=== PATIENT | female | born 1940 | race Caucasian/White ===

== ENCOUNTER → 2017-09-28 12:03 | Outpatient (CLI) | payer MEDICARE, SELFPAY ==
--- NOTE | 2017-09-28 12:10 | RAD_ITS ---
STUDY: X-RAY CHEST REASON FOR EXAM: Female, 76 years old. Cough TECHNIQUE: Frontal and lateral views of the chest. COMPARISON: None. FINDINGS: The lungs are hyperexpanded. There are coarsened interstitial markings suggestive of mild chronic fibrosis. Probable scarring in the lung bases. No gross focal infiltrates. No gross effusions. Normal size heart. Normal mediastinum and edwin. Normal visualized pulmonary arteries. Normal visualized aortic arch and descending thoracic aorta. There are diffuse degenerative changes of the visualized thoracic spine. Normal visualized ribs, clavicles, and shoulders. There is no demonstrated abnormality of the visualized soft tissue structures of the upper abdomen. RAD/Chest PA and Lateral IMPRESSION: There are findings consistent with COPD. There is no evidence of acute chest disease. Electronically Signed: Gordon López MD at 16:50 EST , Service support ,
== END ==
PROVIDERS: Family Provider Family Medicine Geriatric Medicine; PCP Family Medicine Geriatric Medicine; Visit Provider Family Medicine Geriatric Medicine
DX: J40 Bronchitis, not specified as acute or chronic (principal); R05 Cough
CPT/HCPCS: 71046; 87633

== ENCOUNTER → 2017-12-03 11:27 | Outpatient (CLI) | payer MEDICARE, SELFPAY | PROVIDERS: Family Provider Family Medicine Geriatric Medicine; PCP Family Medicine Geriatric Medicine; Visit Provider Family Medicine Geriatric Medicine | DX: R68.83 Chills (without fever) (principal) | CPT/HCPCS: 87633 ==

== ENCOUNTER → 2018-12-18 11:02 | Outpatient (CLI) | payer MEDICARE, SELFPAY ==
--- NOTE | 2018-12-18 11:25 | RAD_ITS ---
STUDY: X-RAY - PELVIS AND LEFT HIP REASON FOR EXAM: Female, 78 years old. Pain TECHNIQUE: 3 views of the pelvis and hip. COMPARISON: None. FINDINGS: L4-L5, L5-S1 degenerative disc disease and facet arthropathy/hypertrophy. Sacral arcades appear symmetric and intact. Mild symmetric degeneration of the SI joints. Iliac crests, pubic rami intact. Bilaterally, mild hip joint margin osteophytic lipping, mild DJD. Osteopenia. No visible pelvic or hip fracture. RAD/HIP, UNI W/ Pelvis 2-3 Views IMPRESSION: Mild bilateral hip DJD. No visible injury. Electronically Signed: Jono España MD at 11:52 EDT Tel , Service support ,
[2018-12-18 12:39] LABS: Anion Gap 1 (5-15); BUN 28 mg/dL (7-18); BUN/Creat Ratio 32.3 RATIO (10-20); Calcium,Total 8.8 mg/dL (8.5-10.1); Chloride 106 mmol/L (98-107); Creatinine, Serum 0.87 mg/dL (0.55-1.02); EST Glomerular Filtration Rate 67 mL/min (>60); Est Glom Filt Rate - Afr Amer 82 mL/min (>60); Glucose 95 mg/dL (74-106); Potassium 4.4 mmol/L (3.5-5.1); Sodium Level 139 mmol/L (136-145)
== END ==
LOC: POLAB3 11:02 → RAD 11:15
PROVIDERS: Family Provider Family Medicine Geriatric Medicine; PCP Family Medicine Geriatric Medicine; Referring Provider Family Medicine Geriatric Medicine; Visit Provider Family Medicine Geriatric Medicine
DX: M25.552 Pain in left hip (principal); E87.6 Hypokalemia
CPT/HCPCS: 36415; 73502; 80048

== ENCOUNTER → 2019-01-02 | Outpatient (CLI) | payer MEDICARE, SELFPAY ==
[2019-01-02 12:40] LABS: Absolute Lymphocyte Count 1.96 X10^3/ul (0.83-4.51); Basophil# 0.04 X10^3/uL; Basophil% 0.6 % (0-1); Eosinophils% 2.9 % (0-5); Hematocrit 40.3 % (37-47); Lymphocyte # 1.96 X10^3/ul (4.0); Lymphocyte % 28.5 % (19-41); Mean Corp Hgb Conc 32.3 g/gl (32-36); Mean Corpuscular Hgb 30.1 pg (27.0-32.0); Mean Corpuscular Volume 93.3 fL (81-99); Mean Platelet Vol. 10.1 fl (6.2-12.0); Monocyte# 0.64 X10^3/uL; Monocyte% 9.3 % (0-10); Neutrophil # 3.98 X10^3/uL (2.7-7.7); Platelet Count 236 K/mm3 (150-450); RBC Distribution Width CV 14.8 % (11.6-14.6); RBC Distribution Width SD 48.4 fl (35.1-43.9); Red Blood Count 4.32 M/mm3 (4.2-5.4); White Blood Count 6.9 K/mm3 (4.4-11.0)
[2019-01-02 12:44] LABS: POSITIVE COUNT NO; POSITIVE DIFFERENTIAL NO; POSITIVE MORPHOLOGY NO
[2019-01-02 13:06] LABS: Vitamin D,25 Hydroxy 20.6 ng/mL (29.95-100.01)
[2019-01-02 13:42] LABS: ALB/GLOB Ratio 0.9 RATIO (0.9-2.4); AST(SGOT) 17 U/L (15-37); Alanine Aminotransfer ALT/SGPT 35 U/L (13-56); Albumin, Serum 3.3 g/dL (3.2-5.0); Alkaline Phosphatase 46 U/L (45-117); Anion Gap 5 (5-15); BUN 28 mg/dL (7-18); Calcium,Total 8.6 mg/dL (8.5-10.1); Chloride 108 mmol/L (98-107); Cholesterol 205 mg/dL (200); EST Glomerular Filtration Rate 74 mL/min (>60); Est Glom Filt Rate - Afr Amer 90 mL/min (>60); Globulin 3.6 g/dL (2.2-4.2); Glucose 90 mg/dL (74-106); High Density Lipoprotein 60 mg/dL; Potassium 4.4 mmol/L (3.5-5.1); Protein, Total 6.9 g/dL (6.4-8.2); Sodium Level 141 mmol/L (136-145); Thyroid Stim Hormone (TSH) 6.28 uIU/mL (0.358-3.74); Triglycerides 93 mg/dL; Very Low Density Lipoprotein 19 mg/dL (5-40)
== END | disposition home or self-care (01) ==
LOC: POLAB3 08:53
PROVIDERS: Family Provider Family Medicine Geriatric Medicine; PCP Family Medicine Geriatric Medicine; Visit Provider Family Medicine Geriatric Medicine
DX: E55.9 Vitamin D deficiency, unspecified (principal); E78.5 Hyperlipidemia, unspecified; I10 Essential (primary) hypertension
CPT/HCPCS: 36415; 80053; 80061; 82306; 84443; 85025

== ENCOUNTER 2019-01-13 13:29 | Outpatient (RCR) | payer MEDICARE, SELFPAY ==
--- NOTE | 2019-04-15 14:36 | HP.PTEVAL_ITS ---
Patient's Visit Information ALEJANDRA SHERMAN is a 78 year old F referred to Physical Therapy by Rancho Knott MD with a diagnosis of MILD OA, LEFT HIP, PAIN SEVERE.. Date of Evaluation: 01/13/19 Physical Therapist: Jen Mckeon PT, Cert MDT - Visit Plan Frequency: 2x /Week Duration: 4-6 Weeks Plan: AQUATIC THERAPY FOR POSTURE CORRECTION/STRENGTHENING, INSTRUCTION IN APPROPRIATE BODY MECHANICS AND ACTIVITY MODIFICATIONS. DLS STARTING WITH A NEUTRAL SPINE PROGRESSING ROM TOLERATED. SANGEETA LE ROM, STRETCHING AND STRENGTHENING. HEP INSTRUCTION. *MINIMAL LIFTING > 10 LBS, BENDING, PUSHING, PULLING, TWISTING AND OVER HEAD EXTENSION. - Subjective Findings: Work/Leisure: RETIRED. Present symptoms: LEFT LATERAL HIP PAIN, GROIN PAIN AND RADIATING PAIN DOWN TO KNEE. NO NUMBNESS OR TINGLING. H/O LBP BUT NOT CURRENTLY. Present since: ABOUT A MONTH AGO. Pain Scale: WORST 8/10, LEAST 3/10. Currently: 5/10. Commenced as a result of: NO APPARENT REASON OTHER THAN LIFTING A HEAVY SEWING MACHINE. Symptoms at onset: SAME. Worse: WALKING, TRANSFER FROM STAND TO SIT, PIVOTING ON LLE, TURNING QUICK, BENDING, LIFTING. Better: SITTING, NAPROXEN, TYLONOL ARTHRITIS. Disturbed sleep: YES. Previous history/Previous treatment: NO PRIOR LEFT HIP PROBLEMS. HX OF CHRONIC LBP FOR YEARS - TREATED WITH CHIROPRACTOR BUT HAS NOT BEEN FOR A LONG TIME. Coughing/sneezing/straining: NEGATIVE. Gait: PATIENT REPORTS SHE IS LIMPING NOW SINCE THIS ONSET AND WHEN SHE USES A CANE IT HELPS. DOING STEPS ONE AT A TIME NOW. Difficulty initiating urinatin: NO. Accidents: NO. Unexplained weight loss: NO. Imaging: PELVIC AND HIP X-RAYS - MILD ARTHRITIS. LUMBAR X-RAYS TWO YEARS AGO WITH POSITIVE FINDINGS - SEE [facility] EMR. PMH: ASTHMA, COPD, HYPERLIPIDEMIA, INSOMNIA, VITAMIN D DEFICIENCY, HYPOTHYOIDISM. Recent major surgery: NO. PLOF (Prior Level of Function): UNLIMITED CONSISTANT AGE - Objective Sitting/Standing Posture: POOR. SLOUCHED. INCREASED KYPHOSIS. Lordosis: RE DUCED. Lateral shift: NO. Relevant shift: N/A. Active Correction of posture: BETTER. Other Observations: INDEP SIT TO STAND WITHOUT UE ASSIST BUT DIFFICULT AND INCRASES LEFT HIP PAIN A LITTLE BIT. INDEP GAIT WITHOUT ASSISTIVE DEVICE INTO PT LIMPING ON LLE. Motor deficit: RIGHT LE 5/5 WITH MMT'ING EXCEPT HIP 4/5. LLE: HIP 4-/5, KNEE 4/5, ANKLE 5/5. Sensory deficit: NO. ROM deficit: SANGEETA HIP FLEXOR, HS AND GASTROC SOLEUS TIGHTNESS WITH HS TIGHTNESS AND CALF TIGHTNESS LEFT > RIGHT. Reflexes: SANGEETA QUADS 1/3 AND ACHILLES 2/2. Dural Signs: POSITIVE LEFT LE. Lumbar mvmt loss: flex - MOD. ext - JACK. R SG - JACK. L SG - JACK - INCREASES LEFT HIP PAIN. LOW BACK PROVOKED WITH PROLONGED STANDING FOR POSTURE ASSESSMENT. Core strength: POOR. Palpation: TENDERNESS WITH PALPATION OF THE LEFT BUTTOCK REGION BUT REALLY NOT TENDER IN THE LEFT GREATER TROCH REGION, OR LUMBAR SPINE. - Goals Goal 1:: DECREASE C/O LEFT HIP PAIN Goal Time Frame: 4-6 Weeks Goal 2:: IMPROVE STANDING, WALKING, BENDING, LIFTING, ADL AND SLEEP FUNCTION Goal Time Frame: 4-6 Weeks Goal 3:: INSTRCT IN PROPHYLAXIS Goal Time Frame: 4-6 Weeks - Rehabilitation Potential Rehabilitation Potential: Fair - Anticipated Interventions Patient/Client Instruction: Educate patient on: Condition, Plan of Care, Risk Factors, Benefits of Fitness Program For the Purpose of:: To improve self management Therapeutic Exercise to Include: Strength training, Body mechanics, Postural training, Flexibilty training, Gait and locomotor training, In an aquatic setting, Active ROM, Dynamic Lumbar Stabilization For the Purpose of:: To decrease pain, To increase ROM, To improve muscle performance and motor function, To increase tolerance to activity/condition/position, To improve ability of physical actions for home/community/work/leisure, To improve gait and locomotor functions Thank you for the opportunity to evaluate your patient. For Medicare and Medicare HMO plans, please review the plan of care and approve it. It will need to be FAXED BACK to us at [phone] for Medicare purposes. For Medicare only, by signing this I certify the plan of care. Please let me know if there are questions or concerns regarding this plan of care. Physician Signature: Date:
--- NOTE | 2019-04-15 14:38 | HP.PTDCNRP_ITS ---
HP - Discharge Summary (1) - Patient Information ALEJANDRA SHERMAN was seen in my office for initial evaluation on 01/13/19. The following Plan of Care was established for this patient: Initial Frequency: 2x /Week Initial Duration: 4-6 Weeks - Anticipated Interventions Patient/Client Instruction: Educate patient on: Condition, Plan of Care, Risk Factors, Benefits of Fitness Program For the Purpose of:: To improve self management Therapeutic Exercise to Include: Strength training, Body mechanics, Postural training, Flexibilty training, Gait and locomotor training, In an aquatic setting, Active ROM, Dynamic Lumbar Stabilization For the Purpose of:: To decrease pain, To increase ROM, To improve muscle performance and motor function, To increase tolerance to a ctivity/condition/position, To improve ability of physical actions for home/community/work/leisure, To improve gait and locomotor functions This patient was last seen in our office 01/17/19. Pertinent comments regarding their Physical therapy will appear below: This patient has not returned to Physical Therapy and is appropriate to return to MD for further follow-up as needed. At this point I will be discontinuing this patient from physical therapy. I would be happy to see this patient again in the future if found appropriate by the physician. Thank you! Jen Mckeon, PT, Cert MDT
== END 2019-01-13 19:00 | disposition home or self-care (01) ==
LOC: PT 13:29
PROVIDERS: Family Provider Family Medicine Geriatric Medicine; PCP Family Medicine Geriatric Medicine; Referring Provider Family Medicine Geriatric Medicine; Visit Provider Family Medicine Geriatric Medicine
DX: M16.9 Osteoarthritis of hip, unspecified (principal)
CPT/HCPCS: 97162; 97530

== ENCOUNTER → 2019-07-04 08:53 | Outpatient (CLI) | payer MEDICARE, SELFPAY ==
[2019-07-04 12:25] LABS: Absolute Lymphocyte Count 1.91 X10^3/uL (0.83-4.51); Absolute Neutrophil Count 3.8 X10^3/uL (2.0-7.7); Basophil# 0.05 X10^3/uL; Basophil% 0.8 % (0-1); Eosinophils% 3.1 % (0-5); Hematocrit 42.7 % (37-47); Hemoglobin 13.7 g/dL (12.0-15.0); Lymphocyte # 1.91 X10^3/ul (4.0); Lymphocyte % 29.7 % (19-41); Mean Corp Hgb Conc 32.1 g/dL (32-36); Mean Corpuscular Volume 93.6 fL (81-99); Mean Platelet Vol. 11.3 fl (6.2-12.0); Monocyte# 0.49 X10^3/uL; Monocyte% 7.6 % (0-10); NRBC Flagged by Analyzer 0 % (0-5); Neutrophil # 3.76 X10^3/uL (2.7-7.7); Neutrophil % 58.3 % (47-70); Platelet Count 229 K/mm3 (150-450); RBC Distribution Width CV 13.3 % (11.6-14.6); RBC Distribution Width SD 45.7 fl (35.1-43.9); Red Blood Count 4.56 M/mm3 (4.2-5.4); White Blood Count 6.4 K/mm3 (4.4-11.0)
[2019-07-04 12:50] LABS: Vitamin D,25 Hydroxy 20.4 ng/mL (29.95-100.01)
[2019-07-04 13:00] LABS: ALB/GLOB Ratio 0.9 RATIO (0.9-2.4); AST(SGOT) 14 U/L (15-37); Alanine Aminotransfer ALT/SGPT 22 U/L (13-56); Albumin, Serum 3.7 g/dL (3.2-5.0); Alkaline Phosphatase 59 U/L (45-117); Anion Gap 8 (5-15); BUN 29 mg/dL (7-18); Calcium,Total 8.8 mg/dL (8.5-10.1); Chloride 105 mmol/L (98-107); Cholesterol 219 mg/dL (200); Creatinine, Serum 0.91 mg/dL (0.55-1.02); EST Glomerular Filtration Rate 64 mL/min (>60); Est Glom Filt Rate - Afr Amer 78 mL/min (>60); Glucose 86 mg/dL (74-106); High Density Lipoprotein 46 mg/dL; Potassium 4.3 mmol/L (3.5-5.1); Protein, Total 7.7 g/dL (6.4-8.2); Sodium Level 140 mmol/L (136-145); Triglycerides 186 mg/dL; Very Low Density Lipoprotein 37 mg/dL (5-40)
== END ==
PROVIDERS: Family Provider Family Medicine Geriatric Medicine; PCP Family Medicine Geriatric Medicine; Visit Provider Family Medicine Geriatric Medicine
DX: E55.9 Vitamin D deficiency, unspecified (principal); E78.5 Hyperlipidemia, unspecified; I10 Essential (primary) hypertension
CPT/HCPCS: 36415; 80053; 80061; 82306; 84443; 85025

== ENCOUNTER → 2019-10-07 12:25 | Outpatient (CLI) | payer MEDICARE, SELFPAY | PROVIDERS: PCP Family Medicine Geriatric Medicine; Referring Provider Family Medicine Geriatric Medicine; Visit Provider Family Medicine Geriatric Medicine | DX: R68.83 Chills (without fever) (principal) | CPT/HCPCS: 87633 ==

== ENCOUNTER → 2020-01-29 14:16 | Outpatient (CLI) | payer MEDICARE, SELFPAY ==
--- NOTE | 2020-01-29 14:22 | RAD_ITS ---
STUDY: X-RAY - RIGHT SHOULDER REASON FOR EXAM: Female, 79 years old. PAIN WITH MOVEMENT TECHNIQUE: 4 view(s) of the shoulder. COMPARISON: None. FINDINGS: Normal glenohumeral articulation. There is hypertrophic osteoarthrosis of the acromioclavicular joint with inferior osseous spur formation. Normal acromion. Normal humeral head and visualized proximal humerus. The soft tissue structures are unremarkable. There is no demonstrated fracture. Normal visualized pulmonary apex. RAD/Shoulder min 2 Views IMPRESSION: Prominent acromioclavicular osteoarthritis. No acute abnormalities. Electronically Signed: Gordon López MD at 22:51 EDT , Service support ,
== END ==
PROVIDERS: PCP Family Medicine Geriatric Medicine; Referring Provider Family Medicine Geriatric Medicine; Visit Provider Family Medicine Geriatric Medicine
DX: M25.519 Pain in unspecified shoulder (principal)
CPT/HCPCS: 73030

== ENCOUNTER → 2020-03-12 09:39 | Outpatient (CLI) | payer MEDICARE, SELFPAY ==
--- NOTE | 2020-03-12 09:44 | RAD_ITS ---
STUDY: X-RAY - LUMBAR SPINE REASON FOR EXAM: Female, 79 years old. LOW BACK PAIN RADIATES INTO LEFT HIP X5 MONTHS S/P LIFTING A SEWING MACHINE TECHNIQUE: 3 view(s) of the lumbar spine were obtained. COMPARISON: 02/23/2017 FINDINGS: Normal lumbar lordosis. There is no substantial scoliosis. There is a normal alignment of the vertebrae. There is multilevel endplate spondylosis of the lumbar vertebrae. There is multi-level degenerative disc disease with multi-level disc space narrowing. There is no demonstrated fracture. Degenerative changes have progressed since prior study. There is atherosclerotic calcification of the abdominal aorta without a demonstrated aneurysm. RAD/Lumbar Spine 2 or 3 Views IMPRESSION: Degenerative changes of the spine, as detailed above. Findings have progressed since prior exam. Electronically Signed: Gordon López MD at 18:48 EDT , Service support ,
== END ==
PROVIDERS: PCP Family Medicine Geriatric Medicine; Referring Provider Family Medicine Geriatric Medicine; Visit Provider Family Medicine Geriatric Medicine
DX: M54.5 Low back pain (principal)
CPT/HCPCS: 72100

== ENCOUNTER → 2020-07-19 14:06 | Outpatient (CLI) | payer MEDICARE, SELFPAY ==
[2020-07-19 16:33] LABS: Vitamin D,25 Hydroxy 19.4 ng/mL
[2020-07-19 16:39] LABS: Absolute Neutrophil Count 7.2 X10^3/uL (2.0-7.7); Basophil# 0.04 X10^3/uL; Basophil% 0.4 % (0-1); Eosinophil# 0.12 X10^3/uL; Eosinophils% 1.2 % (0-5); Hematocrit 42.6 % (37-47); Hemoglobin 13.4 g/dL (12.0-15.0); Lymphocyte % 20.5 % (19-41); Mean Corp Hgb Conc 31.5 g/dL (32-36); Mean Corpuscular Hgb 30.3 pg (27.0-32.0); Mean Corpuscular Volume 96.4 fL (81-99); Mean Platelet Vol. 10.5 fl (6.2-12.0); Monocyte# 0.76 X10^3/uL; Monocyte% 7.4 % (0-10); NRBC Flagged by Analyzer 0 % (0-5); Neutrophil # 7.17 X10^3/uL (2.7-7.7); Neutrophil % 69.9 % (47-70); Platelet Count 277 K/mm3 (150-450); RBC Distribution Width CV 13.1 % (11.6-14.6); RBC Distribution Width SD 46.4 fl (35.1-43.9); Red Blood Count 4.42 M/mm3 (4.2-5.4); White Blood Count 10.3 K/mm3 (4.4-11.0)
[2020-07-19 16:45] LABS: AST(SGOT) 18 U/L (15-37); Alanine Aminotransfer ALT/SGPT 24 U/L (13-56); Albumin, Serum 3.8 g/dL (3.2-5.0); Alkaline Phosphatase 69 U/L (45-117); Anion Gap 5 (5-15); BUN 22 mg/dL (7-18); BUN/Creat Ratio 28.5 RATIO (10-20); Calcium,Total 9.4 mg/dL (8.5-10.1); Chloride 103 mmol/L (98-107); Cholesterol 224 mg/dL (200); Creatinine, Serum 0.77 mg/dL (0.55-1.02); EST Glomerular Filtration Rate 77 mL/min (>60); Est Glom Filt Rate - Afr Amer 93 mL/min (>60); Glucose 74 mg/dL (74-106); High Density Lipoprotein 51 mg/dL; Potassium 3.8 mmol/L (3.5-5.1); Protein, Total 7.8 g/dL (6.4-8.2); Sodium Level 139 mmol/L (136-145); Thyroid Stim Hormone (TSH) 4.17 uIU/mL (0.358-3.74); Triglycerides 167 mg/dL; Very Low Density Lipoprotein 33 mg/dL (5-40)
== END ==
PROVIDERS: PCP Family Medicine Geriatric Medicine; Visit Provider Family Medicine Geriatric Medicine
DX: E55.9 Vitamin D deficiency, unspecified (principal); E78.5 Hyperlipidemia, unspecified; R53.83 Other fatigue
CPT/HCPCS: 36415; 80053; 80061; 82306; 84443; 85025

== ENCOUNTER 2020-07-20 15:22 | Inpatient (IN) | payer MEDICARE, SELFPAY ==
[2020-07-20 15:24] VITALS: BP 164/91; PULSE 103; RESP 16; TEMP 36.7; O2SAT 97; BMI 39.4
--- NOTE | 2020-07-20 16:40 | ED.VIS.GEN ---
History of Present Illness Chief Complaint: Cellulitis Informant: Patient Narrative: 79-year-old female presenting with cellulitis of the left elbow. She states she is been on antibiotics for the last 2 days. She states this was doxycycline and Keflex. She is had worsening of the cellulitis over her left elbow and now extending into her forearm. She does not have any systemic signs or symptoms. She is not had a fever. She states her biggest symptom is arm pain. Past Medical History - Allergies and Home Meds Allergies/Adverse Reactions: Allergies Penicillins Adverse Reaction (Severe, Verified 07/20/20 15:24) Swelling Past Medical History: - - COPD Surgical History: noncontributory Lives: Spouse/ Significant Other Smoking Status: Unknown if ever smoked Alcohol: None Drugs: None - Family History Maternal Family History: Reports: Hypertension, Stroke Paternal Family History: Reports: Hypertension, Stroke Review of Systems General: Denies: Chills, Fever, Malaise Eyes: Denies: Visual changes - bilaterally, Diplopia ENT: Denies: Rhinorrhea, Sore throat Cardiovascular: Denies: Chest pain, Palpitations Respiratory: Denies: Dyspnea, Cough, Dyspnea on exertion Gastrointestinal: Denies: Abdominal pain, Nausea, Vomiting, Diarrhea, Melena, Hematochezia Genitourinary: Denies: Dysuria, Hematuria, Frequency Musculoskeletal: Denies: Arthralgias, Neck pain Skin: Reports: Rash - Cellulitis to left elbow Neurological: Denies: Headache, Weakness Psych: Denies: Depression, Anxiety Physical Exam Vital Signs/Narrative: Vital Signs Temp Pulse Resp BP Pulse Ox 07/20/20 15:24 98.1 F 103 H 16 164/91 H 97 General: Well nourished, No Acute Distress Head: Normocephalic, Atraumatic Eyes: Perrl, EOMI ENT: Moist mucous membranes, No rhinorrhea Cardiovascular: Regular rate, Regular rhythm Respiratory: No distress, CTA bilaterally Abdomen: Soft, Nontender, Nondistended Extremities: Tenderness - Left elbow, Edema - Left elbow and forearm Skin: Rash - Cellulitis noted over left posterior elbow extending into the lateral forearm.. Negative for: Cyanosis, Diaphoresis Diagnostic/Tx/Re-eval - Medical Decision Making 79-year-old female presenting with failure of outpatient antibiotics for cellulitis on her left elbow. She did have a small pustule lateral to the olecranon. This was cleaned with iodine and then a small edouard incision was made to obtain blood wound cultures. Patient's lab work was unremarkable. Given that she has failed outpatient antibiotics she was started on IV antibiotics here in the ED and admitted to the hospital. Impression: 1. Left elbow and forearm cellulitis ED Disposition - Plan for ED Patient:
[2020-07-20] MEDS: Morphine 4 MG/ML Syringe IV (16:50)
[2020-07-20] MEDS: Ondansetron 4 MG/2 ML Vial IV (16:50)
[2020-07-20 17:08] LABS: Absolute Lymphocyte Count 1.71 X10^3/uL (0.83-4.51); Absolute Neutrophil Count 8.3 X10^3/uL (2.0-7.7); Basophil# 0.06 X10^3/uL; Basophil% 0.6 % (0-1); Eosinophil# 0.07 X10^3/uL; Eosinophils% 0.6 % (0-5); Hematocrit 42.4 % (37-47); Hemoglobin 13.5 g/dL (12.0-15.0); Lymphocyte # 1.71 X10^3/ul (4.0); Lymphocyte % 15.7 % (19-41); Mean Corp Hgb Conc 31.8 g/dL (32-36); Mean Corpuscular Hgb 30.3 pg (27.0-32.0); Mean Corpuscular Volume 95.3 fL (81-99); Mean Platelet Vol. 10.7 fl (6.2-12.0); Monocyte# 0.72 X10^3/uL; Monocyte% 6.6 % (0-10); NRBC Flagged by Analyzer 0 % (0-5); Neutrophil # 8.26 X10^3/uL (2.7-7.7); Neutrophil % 76.1 % (47-70); Platelet Count 235 K/mm3 (150-450); RBC Distribution Width CV 13.2 % (11.6-14.6); RBC Distribution Width SD 46.4 fl (35.1-43.9); Red Blood Count 4.45 M/mm3 (4.2-5.4); White Blood Count 10.9 K/mm3 (4.4-11.0)
[2020-07-20 17:36] LABS: Anion Gap 7 (5-15); BUN 16 mg/dL (7-18); BUN/Creat Ratio 21.2 RATIO (10-20); Calcium,Total 9.5 mg/dL (8.5-10.1); Chloride 103 mmol/L (98-107); Creatinine, Serum 0.75 mg/dL (0.55-1.02); EST Glomerular Filtration Rate 79 mL/min (>60); Est Glom Filt Rate - Afr Amer 96 mL/min (>60); Estimated Creatinine Clearance 37.26 ml/min; Glucose 93 mg/dL (74-106); Potassium 4.5 mmol/L (3.5-5.1); Sodium Level 137 mmol/L (136-145)
--- NOTE | 2020-07-20 18:07 | NURSING ---
DR SANCHEZ FOR DR OWUSU
--- NOTE | 2020-07-20 18:20 | PCM.HP.STD ---
<Luma Mchugh SEARCH DIRECTOR - Last Filed: 07/20/20 18:20> Problem List (1) Back pain Status: Chronic Qualifiers: Back pain location: low back pain Chronicity: acute Back pain laterality: left Sciatica presence: without sciatica Qualified Code(s): M54.5 - Low back pain (2) Segmental and somatic dysfunction of lumbar region Status: Chronic (3) Segmental and somatic dysfunction of pelvic region Status: Chronic (4) DDD (degenerative disc disease), lumbar Status: Chronic History of Present Illness Date of Admission: 07/20/20 Chief Complaint: Left elbow swelling, pain and redness. The patient is a 79 year old F who presents emergency room due to left elbow redness, swelling and pain. Patient states this began about 1 week ago. She states left elbow is extremely painful. She denies injury to left elbow. She was started on Keflex and doxycycline 2 days ago without improvement in symptoms. She denies fever, chills. She states she has noted some pus on the end of her elbow. Reports nausea, denies emesis. She has a past medical history of hypothyroidism, seasonal allergies, JANA on CPAP, COPD. Past Medical History Past Medical History (Chronic Problems): Chronic Problems (Last Reviewed 07/19/20 @ 08:20 by Hailey Stevenson) Back pain (Chronic) Segmental and somatic dysfunction of lumbar region (Chronic) Segmental and somatic dysfunction of pelvic region (Chronic) DDD (degenerative disc disease), lumbar (Chronic) Medical History: Medical History (Last Reviewed 07/19/20 @ 08:20 by Hailey Stevenson) History of Right Foot Fracture History of arthritis Z87.39 History of asthma Z87.09 History of COPD Z87.09 Allergies Penicillins Adverse Reaction (Severe, Verified 07/20/20 15:24) Swelling Home Medications: Ambulatory Orders Medication Instructions Recorded levocetirizine 5 mg tablet 5 mg PO DAILY 04/06/20 naproxen 500 mg tablet 500 mg PO BID PRN 04/06/20 Acetaminophen [Tylenol Arthritis] 1,300 mg PO DAILY PRN 07/20/20 Aspirin E.C. [Ecotrin] 650 mg PO DAILY PRN PRN 07/20/20 Doxycycline Hyclate 100 mg PO BID 07/20/20 Levothyroxine Sodium 25 mcg PO DAILY 07/20/20 Surgical History: Surgical History (Last Reviewed 07/19/20 @ 08:20 by Hailey Stevenson) History of cholecystectomy Z90.49 Surgical History: - - Right ankle surgery x2, cholecystectomy. 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 Lives: Spouse/ Significant Other Smoking Status: Former smoker Alcohol: None Drugs: None - *Family History Maternal History Items: Hypertension, Stroke Paternal History Items: Hypertension, Stroke Review of Systems Constitutional: Denies: Chills, Fever, Weight Change HEENT: Denies: Head Aches, Sinus Congestion, Sinus Drainage Cardiovascular: Denies: Chest Pain, Palpitations Respiratory: Denies: Cough, Shortness of breath at rest, Sputum production Gastrointestinal: Denies: Abdominal Pain, Nausea, Vomiting Genitourinary: Denies: Dysuria Musculoskeletal: Denies: Joint Pain, Joint Tenderness Skin: Reports: - - Left upper extremity redness, warmth and pain. Denies: Rash, Wounds Neurological: Denies: Numbness, Tingling, Focal weakness Psychiatric: Denies: Anxiety, Depression, Homicidal Ideations, Suicidal Ideations Hematologic/ Lymphatic: Denies: Easy Bruising, Easy Bleeding VTE Information - Inpt Only VTE Present on Admission: No VTE Mechan Device Prophylaxis: None VTE Pharm Prophylaxis ordered?: Yes - Physical Exam Vitals/I&O's: Vital Signs Temp Pulse Resp BP Pulse Ox 98.1 F 103 H 16 164/91 H 97 07/20/20 15:24 07/20/20 15:24 07/20/20 15:24 07/20/20 15:24 07/20/20 15:24 Oxygen Delivery Method Room Air Weight: 216 lb Body Mass Index (BMI) 39.4 General: Alert, Oriented x3, Cooperative HEENT: Atraumatic, PERRLA, EOMI, Normocephalic Neck: Supple, No JVD, Negative Carotid Bruits Lungs: Clear to auscultation, Normal air movement Cardiovascular: Regular rate, No murmurs Abdomen: Bowel Sounds Present, Soft, Non Tender Extremities: No clubbing, No cyanosis, Capillary Refill Less than 3 Seconds, Edema - Left upper extremity Skin: - - Left upper extremity diffuse erythema, warmth, edema. Dressing over left elbow area intact. Musculoskeletal: No Tenderness to Palpation of Joints or Extremities Neurological: Cranial nerves II-XII grossly intact, Neuro grossly intact Psych/Mental Status: Normal Affect, Appropriate Laboratory Results 07/20/20 16:35: WBC 10.9, RBC 4.45, Hgb 13.5, Hct 42.4, MCV 95.3, MCH 30.3, MCHC 31.8 L, RDW Std Deviation 46.4 H, RDW Coeff of Stevie 13.2, Plt Count 235, MPV 10.7, Immature Gran % (Auto) 0.400, Neut % (Auto) 76.1 H, Lymph % (Auto) 15.7 L, Phelps % (Auto) 6.6, Eos % (Auto) 0.6, Baso % (Auto) 0.6, Absolute Neuts (auto) 8.3 H, Absolute Lymphs (auto) 1.71, Nucleated RBC % 0 07/20/20 16:35: Sodium 137, Potassium 4.5, Chloride 103, Carbon Dioxide 27.0, Anion Gap 7, BUN 16, Creatinine 0.75, Estim Creat Clear Calc 37.26, Est GFR (MDRD) Af Amer 96, Est GFR (MDRD) Non-Af 79, BUN/Creatinine Ratio 21.2 H, Glucose 93, Calcium 9.5 Current Medications Sodium Chloride () 500 mls @ 999 mls/hr IV .Q31M WHIT Stop: 07/20/20 18:30 Assessment/Plan 1. Left upper extremity cellulitis, rule out septic bursitis-appears culture was taken in ER. Obtain upper extremity CT. consider Ortho consult pending CT results. As needed pain regimen. IV vancomycin and IV Zosyn. 2. Hypothyroidism-continue Synthroid regimen. 3. JANA-continue home CPAP. 4. Chronic COPD-no exacerbation. As needed albuterol aerosol. DVT prophylaxis-Lovenox subcu This patient was seen by LIBERTY Prince under the supervision of Dr. Vincent. <Grace Vincent - Last Filed: 07/20/20 20:46> History of Present Illness The patient is a 79 year old F [] Past Medical History Medical History: Medical History (Last Reviewed 07/19/20 @ 08:20 by Hailey Stevenson) History of Right Foot Fracture History of arthritis Z87.39 History of asthma Z87.09 History of COPD Z87.09 Allergies Penicillins Adverse Reaction (Severe, Verified 07/20/20 15:24) Swelling Surgical History: Surgical History (Last Reviewed 07/19/20 @ 08:20 by Hailey Stevenson) History of cholecystectomy Z90.49 - Physical Exam Vitals/I&O's: Vital Signs Temp Pulse Resp BP Pulse Ox 98.3 F 104 H 18 147/84 H 92 07/20/20 19:40 07/20/20 19:40 07/20/20 19:40 07/20/20 19:40 07/20/20 19:40 Oxygen Delivery Method Room Air Weight: 96.7 kg Body Mass Index (BMI) 39.2 Intake and Output for Last 24 Hours 07/18/20 07/19/20 07/20/20 23:59 23:59 23:59 Intake Total 500 / 500 Balance 500 / 500 Laboratory Results 07/20/20 16:35: WBC 10.9, RBC 4.45, Hgb 13.5, Hct 42.4, MCV 95.3, MCH 30.3, MCHC 31.8 L, RDW Std Deviation 46.4 H, RDW Coeff of Stevie 13.2, Plt Count 235, MPV 10.7, Immature Gran % (Auto) 0.400, Neut % (Auto) 76.1 H, Lymph % (Auto) 15.7 L, Phelps % (Auto) 6.6, Eos % (Auto) 0.6, Baso % (Auto) 0.6, Absolute Neuts (auto) 8.3 H, Absolute Lymphs (auto) 1.71, Nucleated RBC % 0 07/20/20 16:35: Sodium 137, Potassium 4.5, Chloride 103, Carbon Dioxide 27.0, Anion Gap 7, BUN 16, Creatinine 0.75, Estim Creat Clear Calc 37.26, Est GFR (MDRD) Af Amer 96, Est GFR (MDRD) Non-Af 79, BUN/Creatinine Ratio 21.2 H, Glucose 93, Calcium 9.5 Current Medications Acetaminophen (Acetaminophen 325 Mg Tablet) 650 mg PO Q6H PRN PRN PRN Reason: Pain Score 1-10/Temp > 100.7 F Albuterol Sulfate (Albuterol 2.5 Mg/3 Ml Vial.Neb.) 2.5 mg INHALATION Q2H PRN PRN PRN Reason: Shortness of Breath/Wheezing Enoxaparin Sodium (Enoxaparin 40 Mg/0.4 Ml Syringe) 40 mg SC BID [facility] Levofloxacin (Levaquin Iv) 750 mg in 150 mls @ 100 mls/hr IV Q24@2200 WHIT Last Admin: 07/20/20 20:31 Dose: 100 mls/hr Documented by: Vancomycin IV Pharmacy to Dose (1 ea/ Sodium Chloride) 500 mls @ 250 mls/hr IV X1 PRN; Protocol PRN Reason: Rx to Dose Metronidazole (Flagyl) 500 mg in 100 mls @ 100 mls/hr IV Q8 WHIT Vancomycin HCl 2,000 mg/ (Sodium Chloride) 540 mls @ 250 mls/hr IV X1 ONE Stop: 07/20/20 23:09 Sodium Chloride () 250 mls @ 15 mls/hr IV .[id number] PRN PRN Reason: Saline Flush Sodium Chloride () 250 mls @ 15 mls/hr IV .[id number] PRN PRN Reason: Additional IVPB Infusion Levothyroxine Sodium (Levothyroxine 25 Mcg Tablet) 25 mcg PO DAILY@0600 [facility] Loratadine (Loratadine 10 Mg Tablet) 5 mg PO DAILY [facility] Morphine Sulfate (Morphine 2 Mg/Ml Syringe) 2 mg IV Q3H PRN PRN PRN Reason: Pain Score 6-10 Ondansetron HCl (Ondansetron 4 Mg/2 Ml Vial) 4 mg IV Q8H PRN PRN PRN Reason: NAUSEA/VOMITING Oxycodone HCl (Oxycodone 5 Mg Tablet) 5 mg PO Q6H PRN PRN PRN Reason: Pain Score 6-10 Sodium Chloride (0.9% Saline Lock 10 Ml Syringe) 10 - 40 ml IV UD PRN PRN Reason: SALINE FLUSH Assessment/Plan This patient was seen in conjunction with Luma Mchugh NP. I have independently interviewed and examined the patient and reviewed pertinent historical, laboratory, and other data. Please refer to her note for patient's presentation, findings, and recommendations. 79-year-old female past medical history of chronic back pain who presented with left elbow redness, swelling and pain that began after she fell and she rolled on her left elbow. She says she scraped her elbow. She saw her primary care doctor was started on Keflex on the second with improvement. Left elbow is painful, and has more redness. Physical Exam: Gen: Looks in some discomfort, not pale, not jaundiced, alert oriented x3 CVS:HS I +II, regular, no murmurs RESP: Diminished at lung bases GI: BS present and normal, nontender, no palpable organs EXT:No edema, erythema of left arm and forearm, dressing over elbow Labs reviewed: ASSESSMENT: 1. Left elbow and forearm cellulitis, concerning for possible bursitis 2. Penicillin allergy 3. Hypothyroidism 4. JANA on CPAP 5. COPD not on oxygen 6. CODE STATUS: DNR no intubation Meds reviewed Plan: Continue on IV vancomycin, Levaquin and metronidazole Wound RN consult ID consult I discussed and explained in details the various types of CODE STATUS-full code, DNR CCA, DNR CC. She chose DNR-CCA, no intubation Time spent discussing CODE STATUS 16 minutes Inpatient E&M: 43476 Init Hosp L3
[2020-07-20 18:31] VITALS: BP 145/81; PULSE 94; RESP 18; O2SAT 93
[2020-07-20 18:34] VITALS: BP 145/81; PULSE 94; RESP 18; TEMP 36.7; O2SAT 93
[2020-07-20 18:58] VITALS: BP 158/88; PULSE 100; RESP 20; TEMP 36.8; O2SAT 96
[2020-07-20] MEDS: Albuterol 2.5 MG/3 ML VIAL.NEB. INHALATION (19:07)
[2020-07-20 19:09] VITALS: PULSE 101; RESP 18
--- NOTE | 2020-07-20 19:39 | CT_ITS ---
CT of the left upper extremity INDICATION: Cellulitis TECHNIQUE: CT of the left upper extremity was performed in the axial projection without contrast scanning from the proximal to mid humeral shaft of the elbow followed by sagittal and coronal reconstructions radiographic technique was optimized to limit patient radiation dose. DLP was 736.99 FINDINGS: There is diffuse subcutaneous edema or cellulitis without definitive evidence for focal abscess. There is no evidence for acute osteomyelitis CT/Extremity Upper without Contra IMPRESSION: Findings consistent with mild diffuse cellulitis without evidence for focal abscess or acute osteomyelitis.. MRI would be helpful for further evaluation of the muscles and other soft tissues of the arm if clinically warranted Electronically Signed: Giles Lockwood MD at 21:44 EST , Service support ,
[2020-07-20 19:40] VITALS: BP 147/84; PULSE 104; RESP 18; TEMP 36.8; O2SAT 92
[2020-07-20 19:47] VITALS: BMI 39.2
[2020-07-20] MEDS: levoFLOXacin IV 750 MG/150 ML BAG 100 MG IV (20:31)
[2020-07-20 20:34] VITALS: BMI 39.2
[2020-07-20 21:37] LABS: AST(SGOT) 12 U/L (15-37); Alanine Aminotransfer ALT/SGPT 20 U/L (13-56); Albumin, Serum 3.2 g/dL (3.2-5.0); Alkaline Phosphatase 64 U/L (45-117); Bilirubin, Direct 0.15 mg/dL (0.00-0.30); Globulin 3.9 g/dL (2.2-4.2); Protein, Total 7.1 g/dL (6.4-8.2)
[2020-07-20] MEDS: Enoxaparin 40 MG/0.4 ML Syringe SC (22:15)
[2020-07-21] MEDS: metroNIDAZOLE 500 MG/100 ML BAG 100 MG IV ×3 (00:43→14:16)
[2020-07-21] MEDS: 0.9% Saline Lock 10 ML Syringe IV ×4 (00:43→21:15)
[2020-07-21 00:44] LABS: Bacteria 0 SEEN /hpf (None Seen); Mucous, Urine 0 SEEN /hpf (<or=2+); Red Blood Cells-Urine 0 SEEN /hpf (0-5); White Blood Cells 0 SEEN /hpf (0-5)
[2020-07-21 00:47] LABS: Color, Urine Yellow (Yellow); Glucose, Dipstick Normal (Normal); Ketone-Dipstick 5 mg/dl (Negative); Leukocyte Esterase-Dipstick Negative /ul (Negative); Nitrite-Dipstick Negative (Negative); Occult Blood-Urine Negative /ul (Negative); Protein-Dipstick 15 mg/dl (Negative); Urine Bilirubin Dipstick Negative (Negative); Urine Clarity Clear (Clear); Urine Urobilinogen Normal (Normal)
[2020-07-21 00:53] LABS: Squamous Epithelial Cells - UA 0-5 SEEN /hpf (5-10)
[2020-07-21 02:05] VITALS: BP 125/59; PULSE 90; RESP 18; TEMP 36.9; O2SAT 97
[2020-07-21] MEDS: Acetaminophen 325 MG Tablet 650 MG PO (02:11)
--- NOTE | 2020-07-21 04:07 | PCM.RX.CS ---
Consult Pharmacy has been consulted to manage selected antiobiotic: Vancomycin Type of Consult: New start Suspected Infection: Sepsis, Skin/Soft tissue Labs: Sodium 137 mmol/L (136-145) 07/20/20 16:35 Potassium 4.5 mmol/L (3.5-5.1) 07/20/20 16:35 Chloride 103 mmol/L (98-107) 07/20/20 16:35 Carbon Dioxide 27.0 mmol/L (21.0-32.0) 07/20/20 16:35 Anion Gap 7 (5-15) 07/20/20 16:35 BUN 16 mg/dL (7-18) 07/20/20 16:35 Creatinine 0.75 mg/dL (0.55-1.02) 07/20/20 16:35 Est GFR (MDRD) Af Amer 96 mL/min (>60) 07/20/20 16:35 Est GFR (MDRD) Non-Af 79 mL/min (>60) 07/20/20 16:35 BUN/Creatinine Ratio 21.2 RATIO (10-20) H 07/20/20 16:35 Glucose 93 mg/dL (74-106) 07/20/20 16:35 Goal Trough: 15-20 mcg/mL Pharmacy Plan for Drug Dosing: Pharmacy Service will continue to monitor and adjust dosing as required. Medications Vancomycin HCl 1,250 mg/ (Sodium Chloride) 275 mls @ 167 mls/hr IV Q12H WHIT Discontinued Medications Vancomycin HCl 2,000 mg/ (Sodium Chloride) 540 mls @ 250 mls/hr IV X1 ONE Stop: 07/20/20 23:09 Last Admin: 07/21/20 00:43 Dose: Infused Documented by: Follow-Up Labs: Trough Vancomycin Labs to be done on [date and time ordered]: 07/22 @ 7694
[2020-07-21] MEDS: Levothyroxine 25 MCG TABLET PO (05:15)
[2020-07-21 07:05] VITALS: O2SAT 98
[2020-07-21 07:11] LABS: Absolute Lymphocyte Count 1.25 X10^3/uL (0.83-4.51); Basophil# 0.04 X10^3/uL; Basophil% 0.5 % (0-1); Eosinophil# 0.09 X10^3/uL; Eosinophils% 1.1 % (0-5); Hematocrit 36.7 % (37-47); Hemoglobin 11.8 g/dL (12.0-15.0); Lymphocyte # 1.25 X10^3/ul (4.0); Lymphocyte % 15.4 % (19-41); Mean Corp Hgb Conc 32.2 g/dL (32-36); Mean Corpuscular Hgb 31.2 pg (27.0-32.0); Mean Corpuscular Volume 97.1 fL (81-99); Mean Platelet Vol. 9.5 fl (6.2-12.0); Monocyte# 0.69 X10^3/uL; Monocyte% 8.5 % (0-10); NRBC Flagged by Analyzer 0 % (0-5); Neutrophil # 6.01 X10^3/uL (2.7-7.7); Neutrophil % 73.8 % (47-70); Platelet Count 232 K/mm3 (150-450); RBC Distribution Width CV 13.1 % (11.6-14.6); RBC Distribution Width SD 46.9 fl (35.1-43.9); Red Blood Count 3.78 M/mm3 (4.2-5.4); White Blood Count 8.1 K/mm3 (4.4-11.0)
[2020-07-21 07:45] LABS: ALB/GLOB Ratio 0.8 RATIO (0.9-2.4); AST(SGOT) 11 U/L (15-37); Alanine Aminotransfer ALT/SGPT 16 U/L (13-56); Albumin, Serum 2.7 g/dL (3.2-5.0); Alkaline Phosphatase 54 U/L (45-117); Anion Gap 4 (5-15); BUN 18 mg/dL (7-18); BUN/Creat Ratio 25.7 RATIO (10-20); Chloride 110 mmol/L (98-107); EST Glomerular Filtration Rate 86 mL/min (>60); Est Glom Filt Rate - Afr Amer 104 mL/min (>60); Estimated Creatinine Clearance 35.55 ml/min; Globulin 3.4 g/dL (2.2-4.2); Glucose 97 mg/dL (74-106); Protein, Total 6.1 g/dL (6.4-8.2); Sodium Level 142 mmol/L (136-145)
[2020-07-21 08:00] VITALS: BP 127/66; PULSE 84; RESP 18; TEMP 36.3; O2SAT 94
[2020-07-21 10:31] LABS: M R Staph aureus DNA By PCR POSITIVE (Negative); Probe Check PASS; Staph aureus DNA By PCR POSITIVE (Negative)
--- NOTE | 2020-07-21 10:37 | NURSING ---
wound photo: left elbow
--- NOTE | 2020-07-21 10:40 | CASEMGMT ---
RN CM Face to Face with patient for initial transition planning/care coordination assessment. RN CM introduced self and role at [facility]. Patient lying in bed, alert and oriented. Patient willing to participate in assessment and is able to answer all questions appropriately. Care providers, pharmacy, and demographics verified. Patient wishes to discharge home, denies need for home health at this time, will continue to monitor if needs wound care. Patient states she has no further needs or concerns at this time. CM to follow for discharge planning needs that may arise. PCP: Nikos Specialists: Rah pulmologist Preferred Pharmacy: [facility] Insurance: [employer] Prescription Benefit: yes Living Will/HPOA: yes, GD Madeleine Coffman LNOK: Living Arrangements: Patient lives with in a mobile home with 4 steps and railing to enter the home. Patient states she was independent at home. Transportation: self/ DME/HHC: Patient states she has raised toilet, cane, walker, and cpap at home. Patient denies previous HHC. Disposition Plan: Patient to discharge home with family support and follow-up plans in place. Madeleine OLSEN, RN, CM
--- NOTE | 2020-07-21 11:18 | PN_ITS ---
Subjective: Chief complaint: Follow-up after admission for acute cellulitis of the left elbow and left forearm. Patient seen and examined. No acute events overnight. She complained of mild ache of the left forearm, Tylenol is taking the edge of it. Denied fever or chills. Local swelling and erythema of the left elbow and left forearm is improving. Her vital signs are stable. - Physical Exam Vitals/I&O's: Vital Signs Temp Pulse Resp BP Pulse Ox 97.3 F L 84 18 127/66 H 94 07/21/20 08:00 07/21/20 08:00 07/21/20 08:00 07/21/20 08:00 07/21/20 08:00 Oxygen Flow Rate (L/min) 2.5 Oxygen Delivery Method Room Air Weight: 213 lb 2.992 oz Body Mass Index (BMI) 39.2 Intake and Output for Last 24 Hours 07/19/20 07/20/20 07/21/20 23:59 23:59 23:59 Intake Total 650 / 650 1240 / 1240 Output Total 200 / 200 Balance 650 / 650 1040 / 1040 General: Alert, Oriented x3, Cooperative, No apparent distress HEENT: Atraumatic, PERRLA, EOMI, Normocephalic Oral: Moist Mucosa, No Gingival or Mucosal Lesions/ Ulcerations Neck: Supple, No JVD, Negative Carotid Bruits, Trachea Midline, Thyroid Normal Size and Texture Lungs: Clear to auscultation, Normal air movement, No rhonchi, No wheeze, No rales, Diminished Cardiovascular: Regular rate, Regular Rhythm, Normal S1, Normal S2, PMI Normal Abdomen: Bowel Sounds Present, Soft, Non Tender, Non-Distended, No Hepato- splenomegaly, Obese Extremities: No clubbing, No cyanosis, No edema Skin: No rashes, No breakdown Lymphatic: No Cervical, Supraclavicular, or Inguinal Adenopathy Neurological: Cranial nerves II-XII grossly intact, Neuro grossly intact Psych/Mental Status: Normal Affect, Appropriate, Alert and oriented to time, place, person, mood and affect Microbiology Past 72 Hours 07/20/20 17:00 Wound - Leg Gram Stain - Final Laboratory Results 07/20/20 16:35: WBC 10.9, RBC 4.45, Hgb 13.5, Hct 42.4, MCV 95.3, MCH 30.3, MCHC 31.8 L, RDW Std Deviation 46.4 H, RDW Coeff of Stevie 13.2, Plt Count 235, MPV 10.7, Immature Gran % (Auto) 0.400, Neut % (Auto) 76.1 H, Lymph % (Auto) 15.7 L, [place] % (Auto) 6.6, Eos % (Auto) 0.6, Baso % (Auto) 0.6, Absolute Neuts (auto) 8.3 H, Absolute Lymphs (auto) 1.71, Nucleated RBC % 0 07/20/20 16:35: Sodium 137, Potassium 4.5, Chloride 103, Carbon Dioxide 27.0, Anion Gap 7, BUN 16, Creatinine 0.75, Estim Creat Clear Calc 37.26, Est GFR (MDRD) Af Amer 96, Est GFR (MDRD) Non-Af 79, BUN/Creatinine Ratio 21.2 H, Glucose 93, Calcium 9.5 07/20/20 20:54: Total Bilirubin 0.60, Direct Bilirubin 0.15, AST 12 L, ALT 20, Alkaline Phosphatase 64, Total Protein 7.1, Albumin 3.2, Globulin 3.9 07/21/20 00:10: Urine Color Yellow, Urine Clarity Clear, Urine pH 6.0, Ur Specific [place] 1.020, Urine Protein 15 H, Urine Glucose (UA) Normal, Urine Ketones 5 H, Urine Occult Blood Negative, Urine Nitrite Negative, Urine Bilirubin Negative, Urine Urobilinogen Normal, Ur Leukocyte Esterase Negative, Urine RBC 0 SEEN, Urine WBC 0 SEEN, Ur Squamous Epith Cells 0-5 SEEN, Urine Bacteria 0 SEEN, Urine Mucus 0 SEEN 07/21/20 07:00: WBC 8.1, RBC 3.78 L, Hgb 11.8 L, Hct 36.7 L, MCV 97.1, MCH 31.2, MCHC 32.2, RDW Std Deviation 46.9 H, RDW Coeff of Stevie 13.1, Plt Count 232, MPV 9.5, Immature Gran % (Auto) 0.700, Neut % (Auto) 73.8 H, Lymph % (Auto) 15.4 L, [place] % (Auto) 8.5, Eos % (Auto) 1.1, Baso % (Auto) 0.5, Absolute Neuts (auto) 6.0, Absolute Lymphs (auto) 1.25, Nucleated RBC % 0 07/21/20 07:00: Sodium 142, Potassium 4.0, Chloride 110 H, Carbon Dioxide 28.0, Anion Gap 4 L, BUN 18, Creatinine 0.70, Estim Creat Clear Calc 35.55, Est GFR (MDRD) Af Amer 104, Est GFR (MDRD) Non-Af 86, BUN/Creatinine Ratio 25.7 H, Glucose 97, Calcium 8.0 L, Total Bilirubin 0.60, AST 11 L, ALT 16, Alkaline Phosphatase 54, Total Protein 6.1 L, Albumin 2.7 L, Globulin 3.4, Albumin/Globulin Ratio 0.8 L 07/21/20 09:15: S.aureus Protein A PCR POSITIVE H, MRSA (PCR) POSITIVE H Clinical Impression(s) from Imaging Studies Upper Extremity CT 07/20/20 19:39 IMPRESSION: Findings consistent with mild diffuse cellulitis without evidence for focal abscess or acute osteomyelitis.. MRI would be helpful for further evaluation of the muscles and other soft tissues of the arm if clinically warranted Electronically Signed: Giles Lockwood MD at 21:44 EST , Service support , Microbiology 07/20/20 17:00 Wound - Leg Gram Stain - Final Current Medications Acetaminophen (Acetaminophen 325 Mg Tablet) 650 mg PO Q6H PRN PRN PRN Reason: Pain Score 1-10/Temp > 100.7 F Last Admin: 07/21/20 02:11 Dose: 650 mg Documented by: Albuterol Sulfate (Albuterol 2.5 Mg/3 Ml Vial.Neb.) 2.5 mg INHALATION Q2H PRN PRN PRN Reason: Shortness of Breath/Wheezing Enoxaparin Sodium (Enoxaparin 40 Mg/0.4 Ml Syringe) 40 mg SC BID [facility] Last Admin: 07/20/20 22:15 Dose: 40 mg Documented by: Levofloxacin (Levaquin Iv) 750 mg in 150 mls @ 100 mls/hr IV Q24@2200 WHIT Last Infusion: 07/20/20 22:05 Dose: Infused Documented by: Vancomycin IV Pharmacy to Dose (1 ea/ Sodium Chloride) 500 mls @ 250 mls/hr IV X1 PRN; Protocol PRN Reason: Rx to Dose Metronidazole (Flagyl) 500 mg in 100 mls @ 100 mls/hr IV Q8 WHIT Last Infusion: 07/21/20 06:48 Dose: Infused Documented by: Sodium Chloride () 250 mls @ 15 mls/hr IV .[id number] PRN PRN Reason: Saline Flush Sodium Chloride () 250 mls @ 15 mls/hr IV .[id number] PRN PRN Reason: Additional IVPB Infusion Vancomycin HCl 1,250 mg/ (Sodium Chloride) 275 mls @ 167 mls/hr IV Q12H WHIT Levothyroxine Sodium (Levothyroxine 25 Mcg Tablet) 25 mcg PO DAILY@0600 [facility] Last Admin: 07/21/20 05:15 Dose: 25 mcg Documented by: Loratadine (Loratadine 10 Mg Tablet) 5 mg PO DAILY [facility] Morphine Sulfate (Morphine 2 Mg/Ml Syringe) 2 mg IV Q3H PRN PRN PRN Reason: Pain Score 6-10 Ondansetron HCl (Ondansetron 4 Mg/2 Ml Vial) 4 mg IV Q8H PRN PRN PRN Reason: NAUSEA/VOMITING Oxycodone HCl (Oxycodone 5 Mg Tablet) 5 mg PO Q6H PRN PRN PRN Reason: Pain Score 6-10 Sodium Chloride (0.9% Saline Lock 10 Ml Syringe) 10 - 40 ml IV UD PRN PRN Reason: SALINE FLUSH Last Admin: 07/21/20 00:43 Dose: 10 ml Documented by: Medical Necessity - Tobacco Use Smoking Status: Former smoker Assessment/Plan This is a 79 years old female patient presented to the emergency room because of worsening left elbow and left arm redness and swelling after she has been on antibiotics for 2 days without improvement and she was admitted for treatment. #1 acute cellulitis of the left elbow/left forearm: She is on IV vancomycin, Levaquin and Flagyl. Her vital signs are stable, afebrile, no leukocytosis. Wound cultures pending. Routine blood work was unremarkable. MRSA PCR was positive. Local erythema and swelling of the left forearm started to improve. CT scan of the left upper extremity revealed findings consistent with cellulitis, no abscess or focal collection. Infectious disease consulted. Plan to continue same treatment. #2 obstructive sleep apnea: Continue CPAP with home settings. #3 hypothyroidism: Continue levothyroxine. #4 COPD: Stable, pulse ox is maintained on room air. She is on albuterol as needed. #5 DVT prophylaxis: Subcu Lovenox. This note was generated with [employer] dictation software. It may contain incorrect words, spelling, and punctuation that were not noted in checking the note before signing. Inpatient E&M: 12754 Subs Hosp L2
[2020-07-21] MEDS: Loratadine 10 MG Tablet 5 MG PO (11:30)
[2020-07-21] MEDS: oxyCODONE 5 MG Tablet PO ×2 (11:39→20:34)
--- NOTE | 2020-07-21 13:13 | CHAPLAIN ---
Type of Pastoral Visit _x__ Initial Visit ___ Follow-up Visit ___ On-call Visit ___ General Patient Visit ___ Spiritual Assessment ___ Family Conference ___ Bereavement ___ Rapid Response ___ Code Blue ___ Other (describe below) Pastoral Care Referral From _x__ Patient ___ Family ___ Nurse ___ Physician ___ Registered Nurse Post Partum ___ Office Lead ___ Other (describe below) Sacrament/Intervention _x__ Active listening ___ Anointing ___ Christianity ___ Bereavement ___ Communion ___ Jyoti exploration ___ ___ Life review _x__ Prayer ___ Reconciliation ___ Sacrament of Sick ___ Supportive presence ___ Wedding ___ Other (describe below) Pastoral Comments patient reports good support from her internal medicine nurse and worship although she has not been attending services lately; pt has large family and states that several granddaughters help her as needed; no other concerns
[2020-07-21 14:00] VITALS: BP 130/66; PULSE 95; RESP 18; TEMP 36.6; O2SAT 96
--- NOTE | 2020-07-21 16:27 | PCM.HP.ID ---
Problem List (1) Staph aureus infection Status: Acute Reason for Consult: cellulitis Consulted by: Dr. Langford History of Present Illness: The patient is a 79 year old F who presented with one week of L elbow pain, redness, swelling. No fever, no drainage. Had been on keflex and bactrim for a few days without improvement. Came to ED, I&D done at bedside, arm feeling better. Has been on vanc, levaquin, flagyl. Full ROS performed and neg except as noted above. Reports her head swelled about 50 yrs ago with PCN, but no trouble breathing, and no issue with keflex. - Medical History Past Medical History (Chronic Problems): Chronic Problems (Last Reviewed 07/19/20 @ 08:20 by Hailey Stevenson) Hypothyroidism (Chronic) Back pain (Chronic) Segmental and somatic dysfunction of lumbar region (Chronic) Segmental and somatic dysfunction of pelvic region (Chronic) DDD (degenerative disc disease), lumbar (Chronic) Allergies/Adverse Reactions: Allergies Penicillins Adverse Reaction (Severe, Verified 07/20/20 15:24) Swelling Home Medications: Ambulatory Orders Medication Instructions Recorded levocetirizine 5 mg tablet 5 mg PO DAILY 04/06/20 naproxen 500 mg tablet 500 mg PO BID PRN 04/06/20 Acetaminophen [Tylenol Arthritis] 1,300 mg PO DAILY PRN 07/20/20 Aspirin E.C. [Ecotrin] 650 mg PO DAILY PRN PRN 07/20/20 Doxycycline Hyclate 100 mg PO BID 07/20/20 Levothyroxine Sodium 25 mcg PO DAILY 07/20/20 - Social History SMOKING STATUS:: Former smoker Vital Signs Temp Pulse Resp BP Pulse Ox 97.9 F 95 18 130/66 H 96 07/21/20 14:00 07/21/20 14:00 07/21/20 14:00 07/21/20 14:00 07/21/20 14:00 Oxygen Flow Rate (L/min) 2.5 Oxygen Delivery Method Room Air Weight: 96.7 kg Body Mass Index (BMI) 39.2 Microbiology Past 72 Hours 07/21/20 09:15 Gram Stain - Final Wound - Elbow 07/20/20 17:00 Gram Stain - Final Wound - Leg Wound Culture - Preliminary Staphylococcus aureus Laboratory Tests Past 24 Hrs 07/20/20 07/20/20 07/20/20 16:35 16:35 20:54 WBC 10.9 RBC 4.45 Hgb 13.5 Hct 42.4 MCV 95.3 MCH 30.3 MCHC 31.8 L RDW Std Deviation 46.4 H RDW Coeff of Stevie 13.2 Plt Count 235 MPV 10.7 Immature Gran % (Auto) 0.400 Neut % (Auto) 76.1 H Lymph % (Auto) 15.7 L [place] % (Auto) 6.6 Eos % (Auto) 0.6 Baso % (Auto) 0.6 Absolute Neuts (auto) 8.3 H Absolute Lymphs (auto) 1.71 Nucleated RBC % 0 Sodium 137 Potassium 4.5 Chloride 103 Carbon Dioxide 27.0 Anion Gap 7 BUN 16 Creatinine 0.75 Estim Creat Clear Calc 37.26 Est GFR (MDRD) Af Amer 96 Est GFR (MDRD) Non-Af 79 BUN/Creatinine Ratio 21.2 H Glucose 93 Calcium 9.5 Total Bilirubin 0.60 Direct Bilirubin 0.15 AST 12 L ALT 20 Alkaline Phosphatase 64 Total Protein 7.1 Albumin 3.2 Globulin 3.9 Albumin/Globulin Ratio Urine Color Urine Clarity Urine pH Ur Specific [place] Urine Protein Urine Glucose (UA) Urine Ketones Urine Occult Blood Urine Nitrite Urine Bilirubin Urine Urobilinogen Ur Leukocyte Esterase Urine RBC Urine WBC Ur Squamous Epith Cells Urine Bacteria Urine Mucus S.aureus Protein A PCR MRSA (PCR) 07/21/20 07/21/20 07/21/20 00:10 07:00 07:00 WBC 8.1 RBC 3.78 L Hgb 11.8 L Hct 36.7 L MCV 97.1 MCH 31.2 MCHC 32.2 RDW Std Deviation 46.9 H RDW Coeff of Stevie 13.1 Plt Count 232 MPV 9.5 Immature Gran % (Auto) 0.700 Neut % (Auto) 73.8 H Lymph % (Auto) 15.4 L [place] % (Auto) 8.5 Eos % (Auto) 1.1 Baso % (Auto) 0.5 Absolute Neuts (auto) 6.0 Absolute Lymphs (auto) 1.25 Nucleated RBC % 0 Sodium 142 Potassium 4.0 Chloride 110 H Carbon Dioxide 28.0 Anion Gap 4 L BUN 18 Creatinine 0.70 Estim Creat Clear Calc 35.55 Est GFR (MDRD) Af Amer 104 Est GFR (MDRD) Non-Af 86 BUN/Creatinine Ratio 25.7 H Glucose 97 Calcium 8.0 L Total Bilirubin 0.60 Direct Bilirubin AST 11 L ALT 16 Alkaline Phosphatase 54 Total Protein 6.1 L Albumin 2.7 L Globulin 3.4 Albumin/Globulin Ratio 0.8 L Urine Color Yellow Urine Clarity Clear Urine pH 6.0 Ur Specific [place] 1.020 Urine Protein 15 H Urine Glucose (UA) Normal Urine Ketones 5 H Urine Occult Blood Negative Urine Nitrite Negative Urine Bilirubin Negative Urine Urobilinogen Normal Ur Leukocyte Esterase Negative Urine RBC 0 SEEN Urine WBC 0 SEEN Ur Squamous Epith Cells 0-5 SEEN Urine Bacteria 0 SEEN Urine Mucus 0 SEEN S.aureus Protein A PCR MRSA (PCR) 07/21/20 09:15 WBC RBC Hgb Hct MCV MCH MCHC RDW Std Deviation RDW Coeff of Stevie Plt Count MPV Immature Gran % (Auto) Neut % (Auto) Lymph % (Auto) [place] % (Auto) Eos % (Auto) Baso % (Auto) Absolute Neuts (auto) Absolute Lymphs (auto) Nucleated RBC % Sodium Potassium Chloride Carbon Dioxide Anion Gap BUN Creatinine Estim Creat Clear Calc Est GFR (MDRD) Af Amer Est GFR (MDRD) Non-Af BUN/Creatinine Ratio Glucose Calcium Total Bilirubin Direct Bilirubin AST ALT Alkaline Phosphatase Total Protein Albumin Globulin Albumin/Globulin Ratio Urine Color Urine Clarity Urine pH Ur Specific [place] Urine Protein Urine Glucose (UA) Urine Ketones Urine Occult Blood Urine Nitrite Urine Bilirubin Urine Urobilinogen Ur Leukocyte Esterase Urine RBC Urine WBC Ur Squamous Epith Cells Urine Bacteria Urine Mucus S.aureus Protein A PCR POSITIVE H MRSA (PCR) POSITIVE H - Other Studies Radiology: [] reviewed Other Studies: [] Route of nutrition/ use of supplements: [] Nutritional Intake: [] IV Site: [] Peters Catheter: [] - Physical Exam General: Alert, Oriented x3, Cooperative, No apparent distress HEENT: Atraumatic, PERRLA, EOMI Neck: Supple, No Nodes Lungs: Clear to auscultation, Normal air movement Cardiovascular: Regular rate, Regular Rhythm Abdomen: Soft, Non Tender, Non-Distended Extremities: Edema - LUE Skin: Rash Present - LUE redness, mildly limited ROM, bandage over elbow. Neurological: Cranial nerves II-XII grossly intact - Assessment/Plan Antibiotics: [] Assessment/Plan: [] Staph aureus L elbow cellulitis, possible bursitis - improving. Wound cx final results pending. Tolerated keflex with no issue, will narrow to vanc/cefazolin. Will follow, thank you
[2020-07-21 19:40] VITALS: PULSE 106; RESP 24; O2SAT 87
[2020-07-21] MEDS: Albuterol 2.5 MG/3 ML VIAL.NEB. INHALATION (19:40)
--- NOTE | 2020-07-21 19:43 | CPS ---
placed pt on 2 lpm O2 for sleeping
[2020-07-21 20:26] VITALS: BP 139/63; PULSE 107; RESP 18; TEMP 37; O2SAT 97
[2020-07-21] MEDS: Cefazolin 2 GM in 0.9% Normal Saline 100 ML IV (21:15)
[2020-07-22] VITALS (11 sets, daily range): BP systolic 136–182; BP diastolic 68–84; PULSE 91–101; RESP 18–20; TEMP 36.4–37.7; O2SAT 93–100; BMI 39.2
[2020-07-22] MEDS: Levothyroxine 25 MCG TABLET PO (05:40)
[2020-07-22] MEDS: Cefazolin 2 GM in 0.9% Normal Saline 100 ML IV (05:41)
--- NOTE | 2020-07-22 08:29 | PN_ITS ---
Patient Problems: Active and Suspected Problems (Last Reviewed 07/19/20 @ 08:20 by Hailey Stevenson) Staph aureus infection (Acute) Subjective: Chief complaint: Follow-up after admission for acute cellulitis of the left elbow and left forearm. Patient seen and examined. No acute events overnight. This morning, swelling and redness of the left forearm and around difficulty is getting worse, extending beyond the markings, patient complained of intermittent discomfort and mild pain. Denied fever or chills. Her vital signs are stable. - Physical Exam Vitals/I&O's: Vital Signs Temp Pulse Resp BP Pulse Ox 98.8 F 91 18 137/70 H 97 07/22/20 02:43 07/22/20 02:43 07/22/20 02:43 07/22/20 02:43 07/22/20 02:43 Oxygen Flow Rate (L/min) 2.5 Oxygen Delivery Method Room Air Weight: 213 lb 2.992 oz Body Mass Index (BMI) 39.2 Intake and Output for Last 24 Hours 07/20/20 07/21/20 07/22/20 23:59 23:59 23:59 Intake Total 650 / 650 2300 / 2300 310 / 310 Output Total 200 / 200 Balance 650 / 650 2100 / 2100 310 / 310 General: Alert, Oriented x3, Cooperative, No apparent distress HEENT: Atraumatic, PERRLA, EOMI, Normocephalic Oral: Moist Mucosa, No Gingival or Mucosal Lesions/ Ulcerations Neck: Supple, No JVD, Negative Carotid Bruits, Trachea Midline, Thyroid Normal Size and Texture Lungs: Clear to auscultation, Normal air movement, No rhonchi, No wheeze, No rales Cardiovascular: Regular rate, Regular Rhythm, Normal S1, Normal S2, No Ectopic Activity, PMI Normal Abdomen: Soft, Non Tender, Non-Distended, No Hepato-splenomegaly Extremities: No clubbing, No cyanosis, No edema Skin: No rashes, Ulcer/ Wound, - - Left upper extremity: Erythema and edema is extending, getting worse, past above left elbow joint and down to the hand. Lymphatic: No Cervical, Supraclavicular, or Inguinal Adenopathy Neurological: Cranial nerves II-XII grossly intact, Neuro grossly intact Psych/Mental Status: Normal Affect, Appropriate, Alert and oriented to time, place, person, mood and affect Microbiology Past 72 Hours 07/21/20 09:15 Wound - Elbow Gram Stain - Final 07/20/20 17:00 Wound - Leg Gram Stain - Final 07/20/20 17:00 Wound - Leg Wound Culture - Preliminary Staphylococcus aureus Laboratory Results 07/21/20 09:15: S.aureus Protein A PCR POSITIVE H, MRSA (PCR) POSITIVE H Current Medications Acetaminophen (Acetaminophen 325 Mg Tablet) 650 mg PO Q6H PRN PRN PRN Reason: Pain Score 1-10/Temp > 100.7 F Last Admin: 07/21/20 02:11 Dose: 650 mg Documented by: Albuterol Sulfate (Albuterol 2.5 Mg/3 Ml Vial.Neb.) 2.5 mg INHALATION Q2H PRN PRN PRN Reason: Shortness of Breath/Wheezing Last Admin: 07/21/20 19:40 Dose: 2.5 mg Documented by: Enoxaparin Sodium (Enoxaparin 40 Mg/0.4 Ml Syringe) 40 mg SC DAILY [facility] Vancomycin IV Pharmacy to Dose (1 ea/ Sodium Chloride) 500 mls @ 250 mls/hr IV X1 PRN; Protocol PRN Reason: Rx to Dose Sodium Chloride () 250 mls @ 15 mls/hr IV .[id number] PRN PRN Reason: Saline Flush Sodium Chloride () 250 mls @ 15 mls/hr IV .[id number] PRN PRN Reason: Additional IVPB Infusion Vancomycin HCl 1,250 mg/ (Sodium Chloride) 275 mls @ 167 mls/hr IV Q12H [facility] Last Infusion: 07/21/20 23:58 Dose: Infused Documented by: Cefazolin Sodium 2 gm/ Sodium (Chloride) 110 mls @ 150 mls/hr IV Q8 [facility] Last Infusion: 07/22/20 06:25 Dose: Infused Documented by: Levothyroxine Sodium (Levothyroxine 25 Mcg Tablet) 25 mcg PO DAILY@0600 [facility] Last Admin: 07/22/20 05:40 Dose: 25 mcg Documented by: Loratadine (Loratadine 10 Mg Tablet) 5 mg PO DAILY [facility] Last Admin: 07/21/20 11:30 Dose: 5 mg Documented by: Morphine Sulfate (Morphine 2 Mg/Ml Syringe) 2 mg IV Q3H PRN PRN PRN Reason: Pain Score 6-10 Ondansetron HCl (Ondansetron 4 Mg/2 Ml Vial) 4 mg IV Q8H PRN PRN PRN Reason: NAUSEA/VOMITING Oxycodone HCl (Oxycodone 5 Mg Tablet) 5 mg PO Q6H PRN PRN PRN Reason: Pain Score 6-10 Last Admin: 07/21/20 20:34 Dose: 5 mg Documented by: Sodium Chloride (0.9% Saline Lock 10 Ml Syringe) 10 - 40 ml IV UD PRN PRN Reason: SALINE FLUSH Last Admin: 07/21/20 21:15 Dose: 10 ml Documented by: Medical Necessity - Tobacco Use Smoking Status: Former smoker Assessment/Plan All Active Problems (Last Reviewed 07/19/20 @ 08:20 by Hailey Stevenson) Staph aureus infection (Acute) This is a 79 years old female patient presented to the emergency room because of worsening left elbow and left arm redness and swelling after she has been on antibiotics for 2 days without improvement and she was admitted for treatment. #1 acute cellulitis of the left elbow/left forearm: She is on IV vancomycin and cefazolin. Levaquin and Flagyl discontinued. Her vital signs are stable, afebrile, no leukocytosis. Local erythema and swelling is worsening than y esterday. Wound cultures pending. Routine blood work was unremarkable. MRSA PCR was positive. CT scan of the left upper extremity revealed findings consistent with cellulitis, no abscess or focal collection. Infectious disease on the case. Plan to continue same treatment at this time, will discuss with infectious disease. #2 obstructive sleep apnea: Continue CPAP with home settings. #3 hypothyroidism: Continue levothyroxine. #4 COPD: Stable, pulse ox is maintained on room air. She is on albuterol as needed. #5 DVT prophylaxis: Subcu Lovenox. This note was generated with [employer] dictation software. It may contain incorrect words, spelling, and punctuation that were not noted in checking the note before signing. Inpatient E&M: 63549 Subs Hosp L2
[2020-07-22] MEDS: Loratadine 10 MG Tablet 5 MG PO (09:38)
[2020-07-22] MEDS: Acetaminophen 325 MG Tablet 650 MG PO (09:38)
[2020-07-22] MEDS: Enoxaparin 40 MG/0.4 ML Syringe SC (09:38)
[2020-07-22 09:58] LABS: Vancomycin, Trough Level 14.1 ug/mL (5.0-15.0)
--- NOTE | 2020-07-22 10:35 | CON.PCM_ITS ---
Reason for Consult Date of Consultation: 07/22/20 Reason for Consultation: Left elbow erythema and drainage History of Present Illness: The patient is a 79 year old F who began having left elbow pain with swelling and redness beginning on July 18, 2020. She states she uses her elbows to try to get in and out of bed and sustained a small skin tear on the left elbow. She contacted her primary care physician Dr. Knott. She was placed on 2 oral medications including Keflex and doxycycline. She did not see any improvement and her primary care physician recommended she go to the emergency room. Patient was admitted to [place] [address] at [facility] and we were consulted for worsening erythema and drainage. Patient has been on multiple antibiotics and infectious disease was consulted. We were consulted by infectious disease due to no improvement with antibiotic coverage. The erythema was marked initially and this has expanded beyond the markings. She is getting more swelling into the left hand. Cultures were done which were positive for MRSA. She also had a CT scan which was done which was negative for any osteomyelitis or abscess. Patient has medical history pertinent for hypothyroidism, COPD, sleep apnea. She currently denies any chest pain, shor tness of breath, fevers chills. She denies any previous problems with the left elbow. She denies any numbness and tingling. Past Medical History Past Medical History (Chronic Problems): Chronic Problems (Last Reviewed 07/19/20 @ 08:20 by Hailey Stevenson) Hypothyroidism (Chronic) Back pain (Chronic) Segmental and somatic dysfunction of lumbar region (Chronic) Segmental and somatic dysfunction of pelvic region (Chronic) DDD (degenerative disc disease), lumbar (Chronic) Medical History: Medical History (Last Reviewed 07/19/20 @ 08:20 by Hailey Stevenson) History of Right Foot Fracture History of arthritis Z87.39 History of asthma Z87.09 History of COPD Z87.09 Allergies Penicillins Adverse Reaction (Severe, Verified 07/20/20 15:24) Swelling Home Medications: Ambulatory Orders Medication Instructions Recorded levocetirizine 5 mg tablet 5 mg PO DAILY 04/06/20 naproxen 500 mg tablet 500 mg PO BID PRN 04/06/20 Acetaminophen [Tylenol Arthritis] 1,300 mg PO DAILY PRN 07/20/20 Aspirin E.C. [Ecotrin] 650 mg PO DAILY PRN PRN 07/20/20 Doxycycline Hyclate 100 mg PO BID 07/20/20 Levothyroxine Sodium 25 mcg PO DAILY 07/20/20 Surgical History: Surgical History (Last Reviewed 07/19/20 @ 08:20 by Hailey Stevenson) History of cholecystectomy Z90.49 Surgical History: - - Right ankle surgery x2, cholecystectomy. 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 The erythema has past the initial markings previously. She has having swelling into her fingers. There is purulent drainage over the posterior elbow at the olecranon. Patient has full range of motion of the left elbow with mild pain. Full composite fist and full extension of fingers. Good range of motion of the left wrist. Sensation was intact to axillary, radial, median, ulnar nerve distribution. Motor intact with patient able to make okay sign, cross fingers, and thumbs up. Pulses are present and 2+. Capillary refills less than 2 seconds. - Physical Exam Vitals/I&O's: Vital Signs Temp Pulse Resp BP Pulse Ox 98.0 F 94 18 136/69 H 93 07/22/20 09:43 07/22/20 09:43 07/22/20 09:43 07/22/20 09:43 07/22/20 09:43 Oxygen Flow Rate (L/min) 2 Oxygen Delivery Method Room Air Weight: 96.7 kg Body Mass Index (BMI) 39.2 Intake and Output for Last 24 Hours 07/20/20 07/21/20 07/22/20 23:59 23:59 23:59 Intake Total 650 / 650 2300 / 2300 310 / 310 Output Total 200 / 200 Balance 650 / 650 2100 / 2100 310 / 310 General: Alert, Oriented x3, Cooperative, No apparent distress Microbiology Past 72 Hours 07/20/20 17:00 Wound - Leg Gram Stain - Final 07/20/20 17:00 Wound - Leg Wound Culture - Final Meth. resistant Staph. aureus 07/21/20 09:15 Wound - Elbow Gram Stain - Final Laboratory Results 07/22/20 09:14: Vancomycin Trough 14.1 Current Medications Acetaminophen (Acetaminophen 325 Mg Tablet) 650 mg PO Q6H PRN PRN PRN Reason: Pain Score 1-10/Temp > 100.7 F Last Admin: 07/22/20 09:38 Dose: 650 mg Documented by: Albuterol Sulfate (Albuterol 2.5 Mg/3 Ml Vial.Neb.) 2.5 mg INHALATION Q2H PRN PRN PRN Reason: Shortness of Breath/Wheezing Last Admin: 07/21/20 19:40 Dose: 2.5 mg Documented by: Enoxaparin Sodium (Enoxaparin 40 Mg/0.4 Ml Syringe) 40 mg SC DAILY [facility] Last Admin: 07/22/20 09:38 Dose: 40 mg Documented by: Vancomycin IV Pharmacy to Dose (1 ea/ Sodium Chloride) 500 mls @ 250 mls/hr IV X1 PRN; Protocol PRN Reason: Rx to Dose Sodium Chloride () 250 mls @ 15 mls/hr IV .[id number] PRN PRN Reason: Saline Flush Sodium Chloride () 250 mls @ 15 mls/hr IV .[id number] PRN PRN Reason: Additional IVPB Infusion Vancomycin HCl 1,250 mg/ (Sodium Chloride) 275 mls @ 167 mls/hr IV Q12H [facility] Last Infusion: 07/21/20 23:58 Dose: Infused Documented by: Levothyroxine Sodium (Levothyroxine 25 Mcg Tablet) 25 mcg PO DAILY@0600 [facility] Last Admin: 07/22/20 05:40 Dose: 25 mcg Documented by: Loratadine (Loratadine 10 Mg Tablet) 5 mg PO DAILY [facility] Last Admin: 07/22/20 09:38 Dose: 5 mg Documented by: Morphine Sulfate (Morphine 2 Mg/Ml Syringe) 2 mg IV Q3H PRN PRN PRN Reason: Pain Score 6-10 Ondansetron HCl (Ondansetron 4 Mg/2 Ml Vial) 4 mg IV Q8H PRN PRN PRN Reason: NAUSEA/VOMITING Oxycodone HCl (Oxycodone 5 Mg Tablet) 5 mg PO Q6H PRN PRN PRN Reason: Pain Score 6-10 Last Admin: 07/21/20 20:34 Dose: 5 mg Documented by: Sodium Chloride (0.9% Saline Lock 10 Ml Syringe) 10 - 40 ml IV UD PRN PRN Reason: SALINE FLUSH Last Admin: 07/21/20 21:15 Dose: 10 ml Documented by: Assessment/Plan All Active Problems (Last Reviewed 07/19/20 @ 08:20 by Hailey Stevenson) Staph aureus infection (Acute) Lab work: White blood cell count 8.1 Wound culture was positive for MRSA Imaging studies: CT scan was reviewed which did not show any evidence of fracture or dislocation. There was no evidence of abscess or osteomyelitis. For complete details see CT scan results in chart. Impression: 1. Infected left elbow olecranon bursitis with MRSA 2. Hypothyroidism 3. Chronic obstructive pulmonary disease 4. Sleep apnea Plan: I did discuss case with Dr. Narendra Pennington. At this time due to failure of conservative measures with multiple antibiotics we are recommending left elbow irrigation and debridement due to the septic bursitis. Patient has attempted oral antibiotics as well as IV antibiotics. Infectious disease has been monitoring and adjusting medications. She is currently on vancomycin and cefazolin. Her pain appears to be well controlled. Continue with pain medications per hospitalist. I did discuss and review with the patient all treatment options including surgical versus nonsurgical. Patient wishes to proceed with above-stated procedure. Potential risks, benefits, and complications of this procedure were discussed in detail including but not limited to , infection, nerve and blood vessel damage, persistent pain, numbness, tingling, paresthesias, blood clot, pulmonary embolism, and requirement for further surgery. The patient expressed full understanding has no further questions for the doctor. Patient does agree to proceed with the above-stated procedure and has signed the surgery consent form.Since she is been seen worsening erythema and continued drainage from the left elbow patient did give verbal consent to proceed with a left elbow irrigation debridement. Consent form was also signed and placed in chart. Patient last ate at 8:30 AM on July 22, 2020. She will currently be n.p.o. and plan for surgery later this afternoon. I did discuss case with patient scheduler.
--- NOTE | 2020-07-22 10:45 | NURSING ---
TRUE Gardner had been in to assess the left elbow with this nurse. more purulent drainage noted. discussed case with Dr Pennington who plans to take patient to the OR later today. will continue to follow. pt denies further needs at this time. wound redressed and arm elevated up on pillows.
--- NOTE | 2020-07-22 11:10 | EKG12_ITS ---
Test Reason : PRE-OP Blood Pressure : / mmHG Vent. Rate : 092 BPM Atrial Rate : 092 BPM P-R Int : 130 ms QRS Dur : 076 ms QT Int : 342 ms P-R-T Axes : 033 056 023 degrees QTc Int : 422 ms Normal sinus rhythm Normal ECG When compared with ECG of 04-OCT-2009 03:17, No significant change was found Confirmed by MAYRA MACHUCA, KERA ([id number]), assignment editor MAR CANTU ([id number]) on 07/23/2020 2:19:42 PM Referred By: DANIEL Confirmed By:KERA NUNEZ MD
--- NOTE | 2020-07-22 11:10 | PCM.PN.ID ---
Patient Problems: Active and Suspected Problems (Last Reviewed 07/19/20 @ 08:20 by Hailey Stevenson) Staph aureus infection (Acute) Subjective: Worsening redness and swelling, ongoing purulence, no fever - Physical Exam Vitals/I&O's: Vital Signs Temp Pulse Resp BP Pulse Ox 98.0 F 94 18 136/69 H 93 07/22/20 09:43 07/22/20 09:43 07/22/20 09:43 07/22/20 09:43 07/22/20 09:43 Oxygen Flow Rate (L/min) 2 Oxygen Delivery Method Room Air Weight: 96.7 kg Body Mass Index (BMI) 39.2 Intake and Output for Last 24 Hours 07/20/20 07/21/20 07/22/20 23:59 23:59 23:59 Intake Total 650 / 650 2300 / 2300 310 / 310 Output Total 200 / 200 Balance 650 / 650 2100 / 2100 310 / 310 General: Alert, Cooperative, No apparent distress Lungs: Clear to auscultation, Normal air movement Cardiovascular: Regular rate, Regular Rhythm Abdomen: Soft, Non Tender, Non-Distended Skin: Ulcer/ Wound - L elbow worse redness and swelling Microbiology Past 72 Hours 07/20/20 17:00 Wound - Leg Gram Stain - Final 07/20/20 17:00 Wound - Leg Wound Culture - Final Meth. resistant Staph. aureus 07/21/20 09:15 Wound - Elbow Gram Stain - Final Laboratory Results 07/22/20 09:14: Vancomycin Trough 14.1 Current Medications Acetaminophen (Acetaminophen 325 Mg Tablet) 650 mg PO Q6H PRN PRN PRN Reason: Pain Score 1-10/Temp > 100.7 F Last Admin: 07/22/20 09:38 Dose: 650 mg Documented by: Albuterol Sulfate (Albuterol 2.5 Mg/3 Ml Vial.Neb.) 2.5 mg INHALATION Q2H PRN PRN PRN Reason: Shortness of Breath/Wheezing Last Admin: 07/21/20 19:40 Dose: 2.5 mg Documented by: Enoxaparin Sodium (Enoxaparin 40 Mg/0.4 Ml Syringe) 40 mg SC DAILY [facility] Last Admin: 07/22/20 09:38 Dose: 40 mg Documented by: Vancomycin IV Pharmacy to Dose (1 ea/ Sodium Chloride) 500 mls @ 250 mls/hr IV X1 PRN; Protocol PRN Reason: Rx to Dose Sodium Chloride () 250 mls @ 15 mls/hr IV .[id number] PRN PRN Reason: Saline Flush Sodium Chloride () 250 mls @ 15 mls/hr IV .[id number] PRN PRN Reason: Additional IVPB Infusion Vancomycin HCl 1,250 mg/ (Sodium Chloride) 275 mls @ 167 mls/hr IV Q12H [facility] Last Admin: 07/22/20 10:48 Dose: 167 mls/hr Documented by: Levothyroxine Sodium (Levothyroxine 25 Mcg Tablet) 25 mcg PO DAILY@0600 [facility] Last Admin: 07/22/20 05:40 Dose: 25 mcg Documented by: Loratadine (Loratadine 10 Mg Tablet) [address] [facility] Last Admin: 07/22/20 09:38 Dose: 5 mg Documented by: Morphine Sulfate (Morphine 2 Mg/Ml Syringe) 2 mg IV Q3H PRN PRN PRN Reason: Pain Score 6-10 Ondansetron HCl (Ondansetron 4 Mg/2 Ml Vial) 4 mg IV Q8H PRN PRN PRN Reason: NAUSEA/VOMITING Oxycodone HCl (Oxycodone 5 Mg Tablet) 5 mg PO Q6H PRN PRN PRN Reason: Pain Score 6-10 Last Admin: 07/21/20 20:34 Dose: 5 mg Documented by: Sodium Chloride (0.9% Saline Lock 10 Ml Syringe) 10 - 40 ml IV UD PRN PRN Reason: SALINE FLUSH Last Admin: 07/21/20 21:15 Dose: 10 ml Documented by: Medical Necessity - Tobacco Use Smoking Status: Former smoker Route of nutrition/ use of supplements: [] Nutritional Intake: [] IV Site: [] Peters Catheter: [] - Assessment/Plan Antibiotics: [] Assessment/Plan: [] MRSA L elbow cellulitis, possible bursitis - worse today. Cont vanc. Will consult ortho for eval and possible I&D. Will follow
[2020-07-22 11:23] LABS: Hematocrit 39.1 % (37-47); Hemoglobin 12.7 g/dL (12.0-15.0); Mean Corp Hgb Conc 32.5 g/dL (32-36); Mean Corpuscular Hgb 31.3 pg (27.0-32.0); Mean Corpuscular Volume 96.3 fL (81-99); Mean Platelet Vol. 10.5 fl (6.2-12.0); Platelet Count 281 K/mm3 (150-450); RBC Distribution Width CV 12.9 % (11.6-14.6); RBC Distribution Width SD 45.9 fl (35.1-43.9); Red Blood Count 4.06 M/mm3 (4.2-5.4); White Blood Count 9.4 K/mm3 (4.4-11.0)
[2020-07-22 11:45] LABS: Thyroid Stim Hormone (TSH) 3.09 uIU/mL (0.358-3.74)
[2020-07-22] MEDS: 0.9% Saline Lock 10 ML Syringe IV ×2 (12:16→18:48)
--- NOTE | 2020-07-22 15:19 | NURSING ---
Off unit to OR.
--- NOTE | 2020-07-22 17:30 | OP.PCM_ITS ---
Report of Operation Date of Procedure: 07/22/20 Pre-Operative Diagnosis: Left elbow infected olecranon bursitis Post-Operative Diagnosis: Left elbow infected olecranon bursitis Surgery/Procedure Performed:: Irrigation debridement Left elbow infected olecranon bursitis skin subcutaneous fat and fascia. Complex wound closure 6 cm Description of Surgical Findings:: Patient did have area of compromised skin in the midportion of the incision that required complex wound closure. able bodied tankerman: None Anesthesiologist: Corky Villegas Estimated Blood Loss (mL): 20 Fluids Replaced: Crystalloid Description of Procedure: Patient was met and greeted in the preoperative area with her daughter. After her left upper extremity was marked she was brought back to the operating room where she was placed in the supine position. Anesthesia assumed control C-spine airway and administered anesthetic. There remained controlled the C-spine and airway throughout the remainder of the procedure. All bony prominences were identified well-padded. Bump was placed underneath the right side placing the patient in a slightly lateral position. Tourniquet was placed on the left upper extremity and the left arm was prepped with Betadine solution. Once this was done and after the surgeon scrubbed the left upper extremity was draped in a sterile orthopedic fashion and timeout was called. When agreed upon the side, the site, procedure be performed, patient's identity and antibiotics given. Incision was marked out over the olecranon to include an ellipse of the compromised skin where purulence was coming out. At this time the arm was elevated for a period of time and the tourniquet was placed up to 250 mmHg. Incision was made and the sinus tract was ellipsed out. We then dissected down to the olecranon where the fascia was. We then debrided the olecranon bursa, skin subtenons tissue and fat down to fascia. Once we had adequately debrided it sharply dissecting the debridement we curettaged out the area and then irrigated out with 1 L of normal saline. Once this was done the wound was once again inspected and adequate debridement had been done. The central portion where we ellipsed out the sinus tract did have a gap in the skin. However this could be closed without excessive tension using retention sutures. The overall length of the incision to be closed in a complex manner was 3 cm. The overall length of the incision was 6 cm 4-0 nylon suture was used to close the proximal distal end. The central portion was closed using 2-0 nylon with retention sutures. Once is completed with the elbow in a slightly extended position at about 100 degrees there was minimal tension on the skin. We elected to place a posterior splint in this position. Xeroform dressing was placed. Compressive dressing was placed. Well-padded splint was placed. Tourniquet was let down. Patient was awakened by anesthesia and transferred to the PACU for recovery. Posterior well-padded splint was placed with the arm in 100 degrees flexion. Postop plan for this patient sutures should be removed in 2 weeks. Patient nick uld wear the splint with regular dressing changes over the next 2 weeks. With adequate healing we should be able to begin range of motion in 2 weeks. Antibiotics per ID service. Patient still may require further debridements if infection does not adequately respond. Patient will be nonweightbearing left upper extremity until range of motion is begun. - Complications No intraoperative complications - Admit VTE Documentation VTE Present on Admission: No VTE Mechan Device Prophylaxis: SCD's VTE Pharm Prophylaxis ordered?: Yes
[2020-07-22] MEDS: Morphine 2 MG/ML Syringe IV ×2 (18:48→22:25)
[2020-07-23] VITALS (8 sets, daily range): BP systolic 118–160; BP diastolic 49–77; PULSE 87–104; RESP 16–20; TEMP 36.5–37.3; O2SAT 94–98; BMI 39.2
[2020-07-23] MEDS: Morphine 2 MG/ML Syringe IV (03:06)
[2020-07-23] MEDS: Levothyroxine 25 MCG TABLET PO (06:30)
--- NOTE | 2020-07-23 07:01 | NURSING ---
TRUE Gardner was in to see patient this am. Dressing and splint are to remain in place until POD#2. Per Dr Gorge Gardner plans to come in tomorrow and assess the elbow and reapply the splint. Pt may need home health care of Dr Pennington wants incision assessed every few days at home.
--- NOTE | 2020-07-23 07:02 | PN.ORTHO_ITS ---
Patient Problems: Active and Suspected Problems (Last Reviewed 07/19/20 @ 08:20 by Hailey Stevenson) Staph aureus infection (Acute) Subjective: The patient was sitting in bed upon examination. Patient denies any chest pain, shortness of breath, dizziness, lightheadedness, nausea or vomiting, or calf pain. Pain is controlled on medications. No adverse overnight events. Patient states her elbow pain is controlled with medications. She is tolerating the splint. She continues to have swelling into the fingers. Objective: Vital signs stable and afebrile. Sensation is intact to light touch to axillary, radial, median, ulnar nerve distribution Posterior long-arm splint and dressing are without any breakthrough drainage Motor intact with patient able to make okay sign, cross fingers, and thumbs up - Physical Exam Vitals/I&O's: Vital Signs Temp Pulse Resp BP Pulse Ox 99.1 F 98 18 160/68 H 94 07/23/20 06:29 07/23/20 06:29 07/23/20 06:29 07/23/20 06:29 07/23/20 06:29 Oxygen Flow Rate (L/min) 2 Oxygen Delivery Method Nasal Cannula Weight: 96.7 kg Body Mass Index (BMI) 39.2 Intake and Output for Last 24 Hours 07/21/20 07/22/20 07/23/20 23:59 23:59 23:59 Intake Total 2300 / 2300 785 / 1185 895 / 895 Output Total 200 / 200 300 / 500 300 / 300 Balance 2100 / 2100 485 / 685 595 / 595 Microbiology Past 72 Hours 07/22/20 Unknown Mucosa - Nose SARS-CoV-2 Antigen (Rapid) - Final 07/21/20 09:15 Wound - Elbow Gram Stain - Final 07/21/20 09:15 Wound - Elbow Wound Culture - Preliminary Staphylococcus aureus 07/20/20 17:00 Wound - Leg Gram Stain - Final 07/20/20 17:00 Wound - Leg Wound Culture - Final Meth. resistant Staph. aureus Laboratory Results 07/21/20 09:15: S.aureus Protein A PCR POSITIVE H, MRSA (PCR) POSITIVE H 07/22/20 09:14: Vancomycin Trough 14.1 07/22/20 09:14: WBC 9.4, RBC 4.06 L, Hgb 12.7, Hct 39.1, MCV 96.3, MCH 31.3, MCHC 32.5, RDW Std Deviation 45.9 H, RDW Coeff of Stevie 12.9, Plt Count 281, MPV 10.5 07/22/20 09:14: TSH 3.09 Current Medications Acetaminophen (Acetaminophen 325 Mg Tablet) 650 mg PO Q6H PRN PRN PRN Reason: Pain Score 1-10/Temp > 100.7 F Last Admin: 07/22/20 09:38 Dose: 650 mg Documented by: Albuterol Sulfate (Albuterol 2.5 Mg/3 Ml Vial.Neb.) 2.5 mg INHALATION Q2H PRN PRN PRN Reason: Shortness of Breath/Wheezing Last Admin: 07/21/20 19:40 Dose: 2.5 mg Documented by: Enoxaparin Sodium (Enoxaparin 40 Mg/0.4 Ml Syringe) 40 mg SC DAILY [facility] Last Admin: 07/22/20 09:38 Dose: 40 mg Documented by: Vancomycin IV Pharmacy to Dose (1 ea/ Sodium Chloride) 500 mls @ 250 mls/hr IV X1 PRN; Protocol PRN Reason: Rx to Dose Sodium Chloride () 250 mls @ 15 mls/hr IV .[id number] PRN PRN Reason: Saline Flush Sodium Chloride () 250 mls @ 15 mls/hr IV .[id number] PRN PRN Reason: Additional IVPB Infusion Vancomycin HCl 1,250 mg/ (Sodium Chloride) 275 mls @ 167 mls/hr IV Q12H [facility] Last Infusion: 07/23/20 00:22 Dose: Infused Documented by: Levothyroxine Sodium (Levothyroxine 25 Mcg Tablet) 25 mcg PO DAILY@0600 [facility] Last Admin: 07/23/20 06:30 Dose: 25 mcg Documented by: Loratadine (Loratadine 10 Mg Tablet) 5 mg PO DAILY [facility] Last Admin: 07/22/20 09:38 Dose: 5 mg Documented by: Morphine Sulfate (Morphine 2 Mg/Ml Syringe) 2 mg IV Q3H PRN PRN PRN Reason: Pain Score 6-10 Last Admin: 07/23/20 03:06 Dose: 2 mg Documented by: Ondansetron HCl (Ondansetron 4 Mg/2 Ml Vial) 4 mg IV Q8H PRN PRN PRN Reason: NAUSEA/VOMITING Oxycodone HCl (Oxycodone 5 Mg Tablet) 5 mg PO Q6H PRN PRN PRN Reason: Pain Score 6-10 Last Admin: 07/21/20 20:34 Dose: 5 mg Documented by: Sodium Chloride (0.9% Saline Lock 10 Ml Syringe) 10 - 40 ml IV UD PRN PRN Reason: SALINE FLUSH Last Admin: 07/22/20 18:48 Dose: 10 ml Documented by: Medical Necessity - Tobacco Use Smoking Status: Former smoker Assessment/Plan All Active Problems (Last Reviewed 07/19/20 @ 08:20 by Hailey Stevenson) Staph aureus infection (Acute) 1. S/P irrigation debridement left elbow infected olecranon bursitis with complex wound closure POD #1 2. Continue Pain Medications: Tylenol and OxyIR 3. PT/OT: Continue with sling and posterior long-arm splint, no range of motion of the left elbow. Nonweightbearing left upper extremity until range of motion begins. Will begin range of motion after 2-week follow-up 4. Continue management per medicine 5. Encouraged Incentive Spirometry 6. Continue antibiotics per infectious disease: Currently on vancomycin 7. Disposition: At this time we will take down dressing tomorrow to examine left elbow. Until then continue with sling and posterior long-arm splint. Okay to ice left elbow. Continue with pain medications above. Patient will require follow-up at [facility] in 2 weeks for suture removal. Plan will be to begin range of motion at 2 weeks. Continue antibiotics per infectious disease as well as follow-up.
--- NOTE | 2020-07-23 08:49 | PCM.PROGNOTE ---
Patient Problems: Active and Suspected Problems (Last Reviewed 07/19/20 @ 08:20 by Hailey Stevenson) Staph aureus infection (Acute) Subjective: Chief complaint: Follow-up after admission for acute cellulitis of the left elbow/left forearm, infected left elbow olecranon bursitis. Patient seen and examined. No acute events overnight. Left upper extremity pain is getting better, it is around 4 out of 10 in severity, improved with IV morphine. Denies fever or chills. Blood pressure slight elevated, other vital signs are stable. - Physical Exam Vitals/I&O's: Vital Signs Temp Pulse Resp BP Pulse Ox 99.1 F 98 18 160/68 H 95 07/23/20 06:29 07/23/20 06:29 07/23/20 06:29 07/23/20 06:29 07/23/20 07:00 Oxygen Flow Rate (L/min) 2 Oxygen Delivery Method Nasal Cannula Weight: 213 lb 2.992 oz Body Mass Index (BMI) 39.2 Intake and Output for Last 24 Hours 07/21/20 07/22/20 07/23/20 23:59 23:59 23:59 Intake Total 2300 / 2300 785 / 1185 895 / 895 Output Total 200 / 200 300 / 500 300 / 300 Balance 2100 / 2100 485 / 685 595 / 595 General: Alert, Oriented x3 HEENT: Atraumatic, PERRLA, EOMI, Normocephalic Oral: Moist Mucosa, No Gingival or Mucosal Lesions/ Ulcerations Neck: Supple, No JVD, Negative Carotid Bruits, Trachea Midline, Thyroid Normal Size and Texture Lungs: Clear to auscultation, No rhonchi, No wheeze, No rales, Diminished Cardiovascular: Regular rate, Regular Rhythm, Normal S1, Normal S2, PMI Normal Abdomen: Bowel Sounds Present, Soft, Non Tender, Non-Distended, No Hepato-splenomegaly, Obese Extremities: No clubbing, No cyanosis, No edema Skin: No rashes, Ulcer/ Wound Lymphatic: No Cervical, Supraclavicular, or Inguinal Adenopathy Neurological: Cranial nerves II-XII grossly intact, Motor Exam 5/5 strength throughout Psych/Mental Status: Normal Affect, Appropriate Microbiology Past 72 Hours 07/21/20 09:15 Wound - Elbow Gram Stain - Final 07/21/20 09:15 Wound - Elbow Wound Culture - Final Meth. resistant Staph. aureus 07/22/20 Unknown Mucosa - Nose SARS-CoV-2 Antigen (Rapid) - Final 07/20/20 17:00 Wound - Leg Gram Stain - Final 07/20/20 17:00 Wound - Leg Wound Culture - Final Meth. resistant Staph. aureus Laboratory Results 07/21/20 09:15: S.aureus Protein A PCR POSITIVE H, MRSA (PCR) POSITIVE H 07/22/20 09:14: Vancomycin Trough 14.1 07/22/20 09:14: WBC 9.4, RBC 4.06 L, Hgb 12.7, Hct 39.1, MCV 96.3, MCH 31.3, MCHC 32.5, RDW Std Deviation 45.9 H, RDW Coeff of Stevie 12.9, Plt Count 281, MPV 10.5 07/22/20 09:14: TSH 3.09 Microbiology 07/21/20 09:15 Wound - Elbow Gram Stain - Final 07/21/20 09:15 Wound - Elbow Wound Culture - Final Meth. resistant Staph. aureus 07/22/20 Unknown Mucosa - Nose SARS-CoV-2 Antigen (Rapid) - Final 07/20/20 17:00 Wound - Leg Gram Stain - Final 07/20/20 17:00 Wound - Leg Wound Culture - Final Meth. resistant Staph. aureus Current Medications Acetaminophen (Acetaminophen 325 Mg Tablet) 650 mg PO Q6H PRN PRN PRN Reason: Pain Score 1-10/Temp > 100.7 F Last Admin: 07/22/20 09:38 Dose: 650 mg Documented by: Albuterol Sulfate (Albuterol 2.5 Mg/3 Ml Vial.Neb.) 2.5 mg INHALATION Q2H PRN PRN PRN Reason: Shortness of Breath/Wheezing Last Admin: 07/21/20 19:40 Dose: 2.5 mg Documented by: Enoxaparin Sodium (Enoxaparin 40 Mg/0.4 Ml Syringe) 40 mg SC DAILY [facility]IT Last Admin: 07/22/20 09:38 Dose: 40 mg Documented by: Vancomycin IV Pharmacy to Dose (1 ea/ Sodium Chloride) 500 mls @ 250 mls/hr IV X1 PRN; Protocol PRN Reason: Rx to Dose Sodium Chloride () 250 mls @ 15 mls/hr IV .[id number] PRN PRN Reason: Saline Flush Sodium Chloride () 250 mls @ 15 mls/hr IV .[id number] PRN PRN Reason: Additional IVPB Infusion Vancomycin HCl 1,250 mg/ (Sodium Chloride) 275 mls @ 167 mls/hr IV Q12H [facility] Last Infusion: 07/23/20 00:22 Dose: Infused Documented by: Levothyroxine Sodium (Levothyroxine 25 Mcg Tablet) 25 mcg PO DAILY@0600 [facility] Last Admin: 07/23/20 06:30 Dose: 25 mcg Documented by: Loratadine (Loratadine 10 Mg Tablet) 5 mg PO DAILY [facility] Last Admin: 07/22/20 09:38 Dose: 5 mg Documented by: Morphine Sulfate (Morphine 2 Mg/Ml Syringe) 2 mg IV Q3H PRN PRN PRN Reason: Pain Score 6-10 Last Admin: 07/23/20 03:06 Dose: 2 mg Documented by: Ondansetron HCl (Ondansetron 4 Mg/2 Ml Vial) 4 mg IV Q8H PRN PRN PRN Reason: NAUSEA/VOMITING Oxycodone HCl (Oxycodone 5 Mg Tablet) 5 mg PO Q6H PRN PRN PRN Reason: Pain Score 6-10 Last Admin: 07/21/20 20:34 Dose: 5 mg Documented by: Sodium Chloride (0.9% Saline Lock 10 Ml Syringe) 10 - 40 ml IV UD PRN PRN Reason: SALINE FLUSH Last Admin: 07/22/20 18:48 Dose: 10 ml Documented by: Medical Necessity - Tobacco Use Smoking Status: Former smoker Assessment/Plan All Active Problems (Last Reviewed 07/19/20 @ 08:20 by Hailey Stevenson) Staph aureus infection (Acute) This is a 79 years old female patient presented to the emergency room because of worsening left elbow and left arm redness and swelling after she has been on antibiotics for 2 days without improvement and she was admitted for treatment and she underwent for surgery. #1 acute cellulitis of the left elbow/left forearm/infected left elbow olecranon bursitis: Status post irrigation debridement, postoperative day 1. Currently, patient is on IV vancomycin. Her vital signs are stable, afebrile, no leukocytosis. Wound cultures revealed MRSA. Routine blood work was unremarkable. PCR CT scan of the left upper extremity revealed findings consistent with cellulitis, no abscess or focal collection. Infectious disease on the case. Plan to continue same treatment at this time. #2 obstructive sleep apnea: Continue CPAP with home settings. #3 hypothyroidism: Continue levothyroxine. #4 COPD: Stable, pulse ox is 94% on 2 L. She is on albuterol as needed. COVID-19 antigen was negative. Plan to encourage ambulation, use incentive spirometer. #5 DVT prophylaxis: Subcu Lovenox. This note was generated with [employer] dictation software. It may contain incorrect words, spelling, and punctuation that were not noted in checking the note before signing. Inpatient E&M: 67646 Subs Hosp L2
[2020-07-23] MEDS: Loratadine 10 MG Tablet 5 MG PO (09:37)
[2020-07-23] MEDS: oxyCODONE 5 MG Tablet PO ×2 (09:37→20:46)
[2020-07-23] MEDS: Enoxaparin 40 MG/0.4 ML Syringe SC (09:38)
[2020-07-23] MEDS: Albuterol 2.5 MG/3 ML VIAL.NEB. INHALATION (10:56)
--- NOTE | 2020-07-23 16:02 | PN.ID_ITS ---
Patient Problems: Active and Suspected Problems (Last Reviewed 07/19/20 @ 08:20 by Hailey Stevenson) Staph aureus infection (Acute) Subjective: Feeling better s/p OR yesterday. No fever, no n/v/d. - Physical Exam Vitals/I&O's: Vital Signs Temp Pulse Resp BP Pulse Ox 97.7 F L 104 H 20 H 118/49 L 96 07/23/20 09:36 07/23/20 10:56 07/23/20 10:56 07/23/20 09:36 07/23/20 09:36 Oxygen Flow Rate (L/min) 2 Oxygen Delivery Method Room Air Weight: 96.7 kg Body Mass Index (BMI) 39.2 Intake and Output for Last 24 Hours 07/21/20 07/22/20 07/23/20 23:59 23:59 23:59 Intake Total 2300 / 2300 785 / 1185 1170 / 1170 Output Total 200 / 200 300 / 500 300 / 300 Balance 2100 / 2100 485 / 685 870 / 870 General: Alert, Cooperative, No apparent distress Lungs: Clear to auscultation, Normal air movement Cardiovascular: Regular rate, Regular Rhythm Abdomen: Soft, Non Tender, Non-Distended Skin: Ulcer/ Wound - arm wrapped Microbiology Past 72 Hours 07/22/20 Unknown Wound Abcess - Elbow Gram Stain - Final 07/22/20 Unknown Wound Abcess - Elbow Wound Culture - Preliminary Staphylococcus aureus 07/20/20 17:00 Wound - Leg Gram Stain - Final 07/20/20 17:00 Wound - Leg Wound Culture - Final Meth. resistant Staph. aureus 07/20/20 17:00 Wound - Leg Anaerobic Culture - Preliminary Checking for anaerobes, further studies to follow. 07/21/20 09:15 Wound - Elbow Gram Stain - Final 07/21/20 09:15 Wound - Elbow Wound Culture - Final Meth. resistant Staph. aureus 07/22/20 Unknown Mucosa - Nose SARS-CoV-2 Antigen (Rapid) - Final Current Medications Acetaminophen (Acetaminophen 325 Mg Tablet) 650 mg PO Q6H PRN PRN PRN Reason: Pain Score 1-10/Temp > 100.7 F Last Admin: 07/22/20 09:38 Dose: 650 mg Documented by: Albuterol Sulfate (Albuterol 2.5 Mg/3 Ml Vial.Neb.) 2.5 mg INHALATION Q2H PRN PRN PRN Reason: Shortness of Breath/Wheezing Last Admin: 07/23/20 10:56 Dose: 2.5 mg Documented by: Enoxaparin Sodium (Enoxaparin 40 Mg/0.4 Ml Syringe) 40 mg SC DAILY [facility] Last Admin: 07/23/20 09:38 Dose: 40 mg Documented by: Vancomycin IV Pharmacy to Dose (1 ea/ Sodium Chloride) 500 mls @ 250 mls/hr IV X1 PRN; Protocol PRN Reason: Rx to Dose Sodium Chloride () 250 mls @ 15 mls/hr IV .[id number] PRN PRN Reason: Saline Flush Sodium Chloride () 250 mls @ 15 mls/hr IV .[id number] PRN PRN Reason: Additional IVPB Infusion Vancomycin HCl 1,250 mg/ (Sodium Chloride) 275 mls @ 167 mls/hr IV Q12H [facility] Last Infusion: 07/23/20 12:09 Dose: Infused Documented by: Levothyroxine Sodium (Levothyroxine 25 Mcg Tablet) 25 mcg PO DAILY@0600 [facility] Last Admin: 07/23/20 06:30 Dose: 25 mcg Documented by: Loratadine (Loratadine 10 Mg Tablet) 5 mg PO DAILY [facility] Last Admin: 07/23/20 09:37 Dose: 5 mg Documented by: Morphine Sulfate (Morphine 2 Mg/Ml Syringe) 2 mg IV Q3H PRN PRN PRN Reason: Pain Score 6-10 Last Admin: 07/23/20 03:06 Dose: 2 mg Documented by: Ondansetron HCl (Ondansetron 4 Mg/2 Ml Vial) 4 mg IV Q8H PRN PRN PRN Reason: NAUSEA/VOMITING Oxycodone HCl (Oxycodone 5 Mg Tablet) 5 mg PO Q6H PRN PRN PRN Reason: Pain Score 6-10 Last Admin: 07/23/20 09:37 Dose: 5 mg Documented by: Sodium Chloride (0.9% Saline Lock 10 Ml Syringe) 10 - 40 ml IV UD PRN PRN Reason: SALINE FLUSH Last Admin: 07/22/20 18:48 Dose: 10 ml Documented by: Medical Necessity - Tobacco Use Smoking Status: Former smoker Route of nutrition/ use of supplements: [] Nutritional Intake: [] IV Site: [] Peters Catheter: [] - Assessment/Plan Antibiotics: [] Assessment/Plan: [] MRSA L elbow septic bursitis - taken to OR 07/[address] Pennington for I&D. Surg cx with staph. On vanc. Plan on discharge will be 2 weeks of po doxy 100mg bid. Will follow
--- NOTE | 2020-07-23 18:42 | PCS.PANDOC ---
PANDEMIC DOCUMENTATION INITIATED: Date: 07/20/2020 Time: 1939
[2020-07-23] MEDS: Doxycycline 100 MG CAPSULE PO (20:13)
[2020-07-23] MEDS: Acetaminophen 325 MG Tablet 650 MG PO (20:46)
[2020-07-24 03:00] VITALS: BP 145/67; PULSE 84; RESP 18; TEMP 36.6; O2SAT 98
[2020-07-24] MEDS: Levothyroxine 25 MCG TABLET PO (05:18)
[2020-07-24] MEDS: oxyCODONE 5 MG Tablet PO ×2 (05:19→11:22)
[2020-07-24] MEDS: Acetaminophen 325 MG Tablet 650 MG PO ×2 (05:19→11:23)
[2020-07-24 07:13] VITALS: O2SAT 98
[2020-07-24 09:06] VITALS: BP 141/70; PULSE 96; RESP 18; TEMP 36.6; O2SAT 98
--- NOTE | 2020-07-24 09:06 | PN.ORTHO_ITS ---
Patient Problems: Active and Suspected Problems (Last Reviewed 07/19/20 @ 08:20 by Hailey Stevenson) Staph aureus infection (Acute) Subjective: Patient is doing well. She is more comfortable than she was before surgery. Lab work remained stable. No chest pain or shortness of breath. She is tolerating the splint well. She was recently discontinued on vancomycin and started on doxycycline oral antibiotics. - Physical Exam Vitals/I&O's: Vital Signs Temp Pulse Resp BP Pulse Ox 97.8 F 84 18 145/67 H 98 07/24/20 03:00 07/24/20 03:00 07/24/20 03:00 07/24/20 03:00 07/24/20 07:13 Oxygen Flow Rate (L/min) 2 Oxygen Delivery Method Nasal Cannula Weight: 213 lb 2.992 oz Body Mass Index (BMI) 39.2 Intake and Output for Last 24 Hours 07/22/20 07/23/20 07/24/20 23:59 23:59 23:59 Intake Total 785 / 1185 2320 / 2320 120 / 120 Output Total 300 / 500 300 / 300 100 / 100 Balance 485 / 685 2019 General: Alert, Oriented x3, Cooperative Extremities: - - Left upper extremity: Splint was taken down. Patient is demonstrating good primary healing with the midportion of the incision appearing clean and intact. Proximally distally shows good healing. Erythema has decreased and swelling is decreased. 1 small skin tear on the lateral antecubital fossa Microbiology Past 72 Hours 07/22/20 Unknown Wound Abcess - Elbow Gram Stain - Final 07/22/20 Unknown Wound Abcess - Elbow Wound Culture - Final Meth. resistant Staph. aureus 07/20/20 17:00 Wound - Leg Gram Stain - Final 07/20/20 17:00 Wound - Leg Wound Culture - Final Meth. resistant Staph. aureus 07/20/20 17:00 Wound - Leg Anaerobic Culture - Preliminary Checking for anaerobes, further studies to follow. 07/21/20 09:15 Wound - Elbow Gram Stain - Final 07/21/20 09:15 Wound - Elbow Wound Culture - Final Meth. resistant Staph. aureus 07/22/20 Unknown Mucosa - Nose SARS-CoV-2 Antigen (Rapid) - Final Current Medications Acetaminophen (Acetaminophen 325 Mg Tablet) 650 mg PO Q6H PRN PRN PRN Reason: Pain Score 1-10/Temp > 100.7 F Last Admin: 07/24/20 05:19 Dose: 650 mg Documented by: Albuterol Sulfate (Albuterol 2.5 Mg/3 Ml Vial.Neb.) 2.5 mg INHALATION Q2H PRN PRN PRN Reason: Shortness of Breath/Wheezing Last Admin: 07/23/20 10:56 Dose: 2.5 mg Documented by: Doxycycline Monohydrate (Doxycycline 100 Mg Capsule) 100 mg PO BID [facility] Last Admin: 07/23/20 20:13 Dose: 100 mg Documented by: Enoxaparin Sodium (Enoxaparin 40 Mg/0.4 Ml Syringe) 40 mg SC DAILY [facility] Last Admin: 07/23/20 09:38 Dose: 40 mg Documented by: Sodium Chloride () 250 mls @ 15 mls/hr IV .[id number] PRN PRN Reason: Saline Flush Sodium Chloride () 250 mls @ 15 mls/hr IV .[id number] PRN PRN Reason: Additional IVPB Infusion Levothyroxine Sodium (Levothyroxine 25 Mcg Tablet) 25 mcg PO DAILY@0600 [facility] Last Admin: 07/24/20 05:18 Dose: 25 mcg Documented by: Loratadine (Loratadine 10 Mg Tablet) 5 mg PO DAILY [facility] Last Admin: 07/23/20 09:37 Dose: 5 mg Documented by: Morphine Sulfate (Morphine 2 Mg/Ml Syringe) 2 mg IV Q3H PRN PRN PRN Reason: Pain Score 6-10 Last Admin: 07/23/20 03:06 Dose: 2 mg Documented by: Ondansetron HCl (Ondansetron 4 Mg/2 Ml Vial) 4 mg IV Q8H PRN PRN PRN Reason: NAUSEA/VOMITING Oxycodone HCl (Oxycodone 5 Mg Tablet) 5 mg PO Q6H PRN PRN PRN Reason: Pain Score 6-10 Last Admin: 07/24/20 05:19 Dose: 5 mg Documented by: Sodium Chloride (0.9% Saline Lock 10 Ml Syringe) 10 - 40 ml IV UD PRN PRN Reason: SALINE FLUSH Last Admin: 07/22/20 18:48 Dose: 10 ml Documented by: Medical Necessity - Tobacco Use Smoking Status: Former smoker Assessment/Plan All Active Problems (Last Reviewed 07/19/20 @ 08:20 by Hailey Stevenson) Staph aureus infection (Acute) 1. S/P irrigation debridement left elbow infected olecranon bursitis with complex wound closure POD #2 2. Continue Pain Medications: Tylenol and OxyIR 3. PT/OT: Continue with sling and posterior long-arm splint, no range of motion of the left elbow. Nonweightbearing left upper extremity until range of motion begins. Will begin range of motion after 2-week follow-up 4. Continue management per medicine 5. Encouraged Incentive Spirometry 6. Continue antibiotics per infectious disease: Currently on doxycycline p.o. 7. Dressing changes: At this time after examining the incision patient's doing well with primary healing. At this time would like to limit the range of motion of her elbow and also limit the amount of dressing changes. She has fragile skin. I had like to check the wound in the skin 1 week postoperatively with plans to splint for 2 weeks postoperatively. I have discussed multiple options with the patient on appropriateness of this. We discussed having her family change it 1 week she does have an [employer] for a granddaughter however ultimately we have agreed for her to follow-up in the office in 1 week for a dressing change. 8. Disposition: Continue with sling and posterior long-arm splint. Okay to ice left elbow. Continue with pain medications above. Patient will require follow- up at [facility] in 1 weeks for dressing change and examination of the wound. Plan will be to begin range of motion at 2 weeks. Continue antibiotics per infectious disease as well as follow-up. Please call orthopedics for any further questions [facility] Office:
--- NOTE | 2020-07-24 10:28 | PCM.DC ---
- Discharge Diagnoses Current Active Problems: Current Active and Chronic Problems (Last Reviewed 07/19/20 @ 08:20 by Hailey Stevenson) Staph aureus infection (Acute) Back pain (Chronic) Segmental and somatic dysfunction of lumbar region (Chronic) Segmental and somatic dysfunction of pelvic region (Chronic) DDD (degenerative disc disease), lumbar (Chronic) You will use the following diet at home:: Regular Your food should be the consistency of: Regular Discharge Activity: Return to Normal Activity Weight Bearing Status: Weight bearing as tolerated Call your doctor if your incision/area has: Continuous Slow Oozing, Increased Pain/ Swelling, Increased Redness, Foul Smelling Discharge, Swelling at the incision site Call your doctor if you observe: Fever of 101 or Higher, Shortness of breath, Dizziness, Fainting spells, Chest pain, Increased palpitations (irregular heartbeat), Uncontrolled pain Additional Instructions: Continue with the arm sling and posterior long-arm splint. Limit the range of motion of the left elbow and limit the amount of dressing changes. Allergies/Adverse Reactions: Allergies Penicillins Adverse Reaction (Severe, Verified 07/20/20 15:24) Swelling Medications to take at Discharge levocetirizine 5 mg tablet 5 mg PO DAILY 04/06/20 naproxen 500 mg tablet 500 mg PO BID PRN 04/06/20 Acetaminophen [Tylenol Arthritis] 1,300 mg PO DAILY PRN 07/20/20 Aspirin E.C. [Ecotrin] 650 mg PO DAILY PRN PRN 07/20/20 Doxycycline Hyclate 100 mg PO BID 07/20/20 Levothyroxine Sodium 25 mcg PO DAILY 07/20/20 Doxycycline 100 mg PO BID #28 cap 07/24/20 Oxycodone [Oxyir] 5 mg PO Q8H PRN PRN 7 Days #20 tablet 07/24/20 The following prescriptions were given: Doxycycline 100 mg PO BID #28 cap Transmission Status: Pending to [id number] Oxycodone [Oxyir] 5 mg PO Q8H PRN PRN 7 Days #20 tablet PRN Reason: Pain Score 6-10 Transmission Status: Received by [id number] Primary Care Physician: [place] Chi, MD [Primary Care Provider] - Please follow up with your Primary Care Physician in: 2-3 weeks. Test Results: Test results from this visit will be discussed in further detail at your follow-up appointment, if applicable. Please Follow Up With: Rene Pennington MD When: 1 week.
[2020-07-24 10:30] VITALS: PULSE 92
[2020-07-24] MEDS: Loratadine 10 MG Tablet 5 MG PO (10:31)
[2020-07-24] MEDS: Doxycycline 100 MG CAPSULE PO (10:31)
[2020-07-24] MEDS: Enoxaparin 40 MG/0.4 ML Syringe SC (10:31)
--- NOTE | 2020-07-24 12:05 | DS.PCM_ITS ---
Discharge Date and Diagnosis - Problem List Patient Problems: Active and Suspected Problems (Last Reviewed 07/19/20 @ 08:20 by Hailey Stevenson) Staph aureus infection (Acute) Date of Admission: 07/20/20 Date of Discharge: 07/24/20 - Primary Discharge Diagnosis Acute Problems: Active Problems (Last Reviewed 07/19/20 @ 08:20 by Hailey Stevenson) Acute cellulitis of the left elbow/left forearm/MRSA infected left elbow septic olecranon bursitis, status post irrigation debridement. - Secondary Discharge Diagnosis Chronic Problems: Chronic Problems (Last Reviewed 07/19/20 @ 08:20 by Hailey Stevenson) Hypothyroidism (Chronic) Back pain (Chronic) Segmental and somatic dysfunction of lumbar region (Chronic) Segmental and somatic dysfunction of pelvic region (Chronic) DDD (degenerative disc disease), lumbar (Chronic) Hospital Course and Treatment Imaging Results: Clinical Impression(s) from Imaging Studies Upper Extremity CT 07/20/20 19:39 IMPRESSION: Findings consistent with mild diffuse cellulitis without evidence for focal abscess or acute osteomyelitis.. MRI would be helpful for further evaluation of the muscles and other soft tissues of the arm if clinically warranted Electronically Signed: Giles Lockwood MD at 21:44 EST , Service support , Consultations 07/20/20 20:35 Consult: Onc/Wound/community health promoter Routine Comment: 07/22/20 17:28 Consult: Onc/Wound/community health promoter Routine Comment: splint to be replaced with each dressing change Reason for Consult:: left elbow surgery Comments:: first dressing change pod 2. please assess & recommend Dr. Sanchez, infectious disease. Dr. Pennington, orthopedic surgery. Operations: None Procedures: - - Irrigation debridement of the left elbow/left forearm Summary of Care Provided: Patient seen and examined on the day of discharge and appeared to be stable to be discharged to home. She remained afebrile, no significant complaints. Left arm pain is under control. Her vital signs are stable. The patient is a 79 year old F presented to the emergency department because of worsening left elbow and left forearm redness and swelling after she was started on antibiotics for 2 days without improvement. She was found to have acute cellulitis of the left elbow/left forearm with MRSA infected left elbow septic olecranon bursitis. Initially, patient was treated with IV vancomycin and cefazolin. On the next day, swelling and erythema of the left upper extremity significantly worsened. Infectious disease consulted and recommended to consult orthopedic surgery. Orthopedic surgery consulted and patient underwent irrigation debridement of the left forearm/left elbow cellulitis and septic bursitis of the left elbow. Patient's routine blood work was unremarkable. MRSA screen was positive. Wound culture revealed MRSA. COVID-19 antigens were negative. After surgery, patient symptoms improved and she remained afebrile. On the day of discharge, she was evaluated by orthopedic surgery again and she was stable to be discharged home. Patient discharged home in a stable condition, discharged on doxycycline 100 mg p.o. twice daily for 14 days of treatment, prescription was given for OxyIR as needed for pain, plan to follow- up with orthopedic surgery in 1 week for dressing change, instructed to keep the left arm sling and splint, follow-up with PCP in 2 to 3 weeks. Patient Problems: Active and Suspected Problems (Last Reviewed 07/19/20 @ 08:20 by Hailey Stevenson) Staph aureus infection (Acute) - Physical Exam Vitals/I&O's: Vital Signs Temp Pulse Resp BP Pulse Ox 97.8 F 92 18 141/70 H 98 07/24/20 09:06 07/24/20 10:30 07/24/20 09:06 07/24/20 09:06 07/24/20 09:06 Oxygen Flow Rate (L/min) 2 Oxygen Delivery Method Room Air Weight: 213 lb 2.992 oz Body Mass Index (BMI) 39.2 Intake and Output for Last 24 Hours 07/22/20 07/23/20 07/24/20 23:59 23:59 23:59 Intake Total 785 / 1185 2320 / 2320 120 / 120 Output Total 300 / 500 300 / 300 100 / 100 Balance 485 / 685 2019 General: Alert, Oriented x3, Cooperative, No apparent distress HEENT: Atraumatic, PERRLA, EOMI, Normocephalic Oral: Moist Mucosa, No Gingival or Mucosal Lesions/ Ulcerations Neck: Supple, No JVD, Negative Carotid Bruits, Trachea Midline, Thyroid Normal Size and Texture Lungs: Clear to auscultation, Normal air movement, No rhonchi, No wheeze, No rales Cardiovascular: Regular rate, Regular Rhythm, Normal S1, Normal S2, PMI Normal Abdomen: Bowel Sounds Present, Soft, Non Tender, Non-Distended, No Hepato- splenomegaly, Obese Extremities: No clubbing, No cyanosis, No edema Skin: No rashes, Ulcer/ Wound Lymphatic: No Cervical, Supraclavicular, or Inguinal Adenopathy Neurological: Cranial nerves II-XII grossly intact, Neuro grossly intact Psych/Mental Status: Normal Affect, Appropriate Microbiology Past 72 Hours 07/22/20 Unknown Wound Abcess - Elbow Gram Stain - Final 07/22/20 Unknown Wound Abcess - Elbow Wound Culture - Final Meth. resistant Staph. aureus 07/20/20 17:00 Wound - Leg Gram Stain - Final 07/20/20 17:00 Wound - Leg Wound Culture - Final Meth. resistant Staph. aureus 07/20/20 17:00 Wound - Leg Anaerobic Culture - Preliminary Checking for anaerobes, further studies to follow. 07/21/20 09:15 Wound - Elbow Gram Stain - Final 07/21/20 09:15 Wound - Elbow Wound Culture - Final Meth. resistant Staph. aureus 07/22/20 Unknown Mucosa - Nose SARS-CoV-2 Antigen (Rapid) - Final Current Medications Acetaminophen (Acetaminophen 325 Mg Tablet) 650 mg PO Q6H PRN PRN PRN Reason: Pain Score 1-10/Temp > 100.7 F Last Admin: 07/24/20 11:23 Dose: 650 mg Documented by: Albuterol Sulfate (Albuterol 2.5 Mg/3 Ml Vial.Neb.) 2.5 mg INHALATION Q2H PRN PRN PRN Reason: Shortness of Breath/Wheezing Last Admin: 07/23/20 10:56 Dose: 2.5 mg Documented by: Doxycycline Monohydrate (Doxycycline 100 Mg Capsule) 100 mg PO BID [facility] Last Admin: 07/24/20 10:31 Dose: 100 mg Documented by: Enoxaparin Sodium (Enoxaparin 40 Mg/0.4 Ml Syringe) 40 mg SC DAILY [facility] Last Admin: 07/24/20 10:31 Dose: 40 mg Documented by: Sodium Chloride () 250 mls @ 15 mls/hr IV .[id number] PRN PRN Reason: Saline Flush Sodium Chloride () 250 mls @ 15 mls/hr IV .[id number] PRN PRN Reason: Additional IVPB Infusion Levothyroxine Sodium (Levothyroxine 25 Mcg Tablet) 25 mcg PO DAILY@0600 [facility] Last Admin: 07/24/20 05:18 Dose: 25 mcg Documented by: Loratadine (Loratadine 10 Mg Tablet) 5 mg PO DAILY [facility] Last Admin: 07/24/20 10:31 Dose: 5 mg Documented by: Morphine Sulfate (Morphine 2 Mg/Ml Syringe) 2 mg IV Q3H PRN PRN PRN Reason: Pain Score 6-10 Last Admin: 07/23/20 03:06 Dose: 2 mg Documented by: Ondansetron HCl (Ondansetron 4 Mg/2 Ml Vial) 4 mg IV Q8H PRN PRN PRN Reason: NAUSEA/VOMITING Oxycodone HCl (Oxycodone 5 Mg Tablet) 5 mg PO Q6H PRN PRN PRN Reason: Pain Score 6-10 Last Admin: 07/24/20 11:22 Dose: 5 mg Documented by: Sodium Chloride (0.9% Saline Lock 10 Ml Syringe) 10 - 40 ml IV UD PRN PRN Reason: SALINE FLUSH Last Admin: 07/22/20 18:48 Dose: 10 ml Documented by: Discharge Activity: Return to Normal Activity Weight Bearing Status: Weight bearing as tolerated Call your doctor if your incision/area has: Continuous Slow Oozing, Increased Pain/ Swelling, Increased Redness, Foul Smelling Discharge, Swelling at the incision site Call your doctor if you observe: Fever of 101 or Higher, Shortness of breath, Dizziness, Fainting spells, Chest pain, Increased palpitations (irregular heartbeat), Uncontrolled pain Home Medications: Medications to take at Discharge levocetirizine 5 mg tablet 5 mg PO DAILY 04/06/20 naproxen 500 mg tablet 500 mg PO BID PRN 04/06/20 Acetaminophen [Tylenol Arthritis] 1,300 mg PO DAILY PRN 07/20/20 Aspirin E.C. [Ecotrin] 650 mg PO DAILY PRN PRN 07/20/20 Doxycycline Hyclate 100 mg PO BID 07/20/20 Levothyroxine Sodium 25 mcg PO DAILY 07/20/20 Doxycycline 100 mg PO BID #28 cap 07/24/20 Oxycodone [Oxyir] 5 mg PO Q8H PRN PRN 7 Days #20 tab 07/24/20 Following Prescriptions Were Given to Patient: Doxycycline 100 mg PO BID #28 cap Transmission Status: Received by [id number] Oxycodone [Oxyir] 5 mg PO Q8H PRN PRN 7 Days #20 tab PRN Reason: Pain Score 6-10 Transmission Status: Received by [id number] Primary Care Physician: Rancho Knott Chi, MD [Primary Care Provider] - Please follow up with your Primary Care Physician in: 2-3 weeks. Please Follow Up With: Rene Pennington MD When: 1 week. Disposition: Home Minutes spent on discharge:: 32 Patient Condition:: Stable Medical Necessity - Tobacco Use Smoking Status: Former smoker Meaningful Use Info Meaningful Use Diagnoses (Choose all that apply): None applicable Inpatient E&M: 50628 Disch Hosp
[2020-07-24 12:25] VITALS: BP 129/64; PULSE 93; RESP 18; TEMP 36.9; O2SAT 93
--- NOTE | 2020-07-26 15:18 | CASEMGMT ---
SHERITA LEMON Discharge Follow-up Phone Call: ISIDORO: [facility] [employer]: 3 Call Date: 07/26/20 Discharge Date: 07/24/20 Time of Call: 1608 Duration: 3 min Admitting Diagnosis: Cellulitis SHERITA LEMON completed follow-up phone call after recent hospitalization. Patient states she is doing ok. Patient had no questions or concerns regarding discharge instructions. Patient was able to fill prescriptions without any issues. Patient has follow-up appts scheduled. Patient had no further questions or concerns at this time.
== END 2020-07-24 12:50 | disposition home or self-care (01) | DRG 501 ==
LOC: ED 15:55 → MS3 18:34
PROVIDERS: Anesthesiology; Specialist; Admitting Provider Internal Medicine; Emergency Provider Student in an Organized Health Care Education/Training Program; PCP Family Medicine Geriatric Medicine; Visit Provider Hospitalist
PROC: 0MB40ZZ Excision of Left Elbow Bursa and Ligament, Open Approach (ICD-10-PCS; principal; 2020-07-22 15:55)
DX: M71.122 Other infective bursitis, left elbow (principal); L03.114 Cellulitis of left upper limb; B95.61 Methicillin susceptible Staphylococcus aureus infection as the cause of diseases classified elsewhere; E03.9 Hypothyroidism, unspecified; M99.05 Segmental and somatic dysfunction of pelvic region; M99.03 Segmental and somatic dysfunction of lumbar region; M51.36 Other intervertebral disc degeneration, lumbar region; J44.9 Chronic obstructive pulmonary disease, unspecified; G47.33 Obstructive sleep apnea (adult) (pediatric); M19.90 Unspecified osteoarthritis, unspecified site; G89.29 Other chronic pain; Z66 Do not resuscitate; E55.9 Vitamin D deficiency, unspecified; E78.5 Hyperlipidemia, unspecified; R53.83 Other fatigue; S51.012A Laceration without foreign body of left elbow, initial encounter; X58.XXXA Exposure to other specified factors, initial encounter; Y93.89 Activity, other specified; Y92.9 Unspecified place or not applicable; Y99.9 Unspecified external cause status; Z87.891 Personal history of nicotine dependence
CPT/HCPCS: 36415; 73200; 80048; 80053; 80061; 80076; 80202; 81001; 82306; 84443; 85025; 85027; 87070; 87075; 87077; 87186; 87205; 87426; 87640; 93005; 94640; 94762; 97110; 97162; 97166; 97530; 99284; J7030; J7040; J7050; A4216; J2405

== ENCOUNTER → 2020-10-18 14:03 | Outpatient (CLI) | payer MEDICARE, SELFPAY ==
[2020-07-22 13:23] VITALS: BMI 39.2
[2020-10-18 15:22] LABS: Absolute Lymphocyte Count 1.88 X10^3/uL (0.83-4.51); Absolute Neutrophil Count 3.6 X10^3/uL (2.0-7.7); Basophil# 0.05 X10^3/uL; Basophil% 0.8 % (0-1); Eosinophils% 1.6 % (0-5); Hematocrit 42.4 % (37-47); Hemoglobin 13.1 g/dL (12.0-15.0); Lymphocyte # 1.88 X10^3/ul (4.0); Lymphocyte % 30.5 % (19-41); Mean Corp Hgb Conc 30.9 g/dL (32-36); Mean Corpuscular Hgb 29.2 pg (27.0-32.0); Mean Corpuscular Volume 94.4 fL (81-99); Mean Platelet Vol. 9.9 fl (6.2-12.0); Monocyte# 0.48 X10^3/uL; Monocyte% 7.8 % (0-10); NRBC Flagged by Analyzer 0 % (0-5); Neutrophil # 3.63 X10^3/uL (2.7-7.7); Neutrophil % 58.8 % (47-70); Platelet Count 269 K/mm3 (150-450); RBC Distribution Width CV 13.9 % (11.6-14.6); RBC Distribution Width SD 48.3 fl (35.1-43.9); Red Blood Count 4.49 M/mm3 (4.2-5.4); White Blood Count 6.2 K/mm3 (4.4-11.0)
[2020-10-18 15:48] LABS: ALB/GLOB Ratio 0.9 RATIO (0.9-2.4); AST(SGOT) 17 U/L (15-37); Alanine Aminotransfer ALT/SGPT 21 U/L (13-56); Albumin, Serum 3.6 g/dL (3.2-5.0); Alkaline Phosphatase 67 U/L (45-117); Anion Gap 5 (5-15); BUN 23 mg/dL (7-18); BUN/Creat Ratio 26.4 RATIO (10-20); Chloride 105 mmol/L (98-107); Cholesterol 226 mg/dL (200); Creatinine, Serum 0.87 mg/dL (0.55-1.02); EST Glomerular Filtration Rate 67 mL/min (>60); Est Glom Filt Rate - Afr Amer 81 mL/min (>60); Globulin 3.8 g/dL (2.2-4.2); Glucose 90 mg/dL (74-106); High Density Lipoprotein 55 mg/dL; Potassium 3.7 mmol/L (3.5-5.1); Protein, Total 7.4 g/dL (6.4-8.2); Sodium Level 140 mmol/L (136-145); Thyroid Stim Hormone (TSH) 2.97 uIU/mL (0.358-3.74); Triglycerides 143 mg/dL; Very Low Density Lipoprotein 29 mg/dL (5-40)
== END ==
PROVIDERS: PCP Family Medicine Geriatric Medicine; Visit Provider Family Medicine Geriatric Medicine
DX: E03.9 Hypothyroidism, unspecified (principal); E55.9 Vitamin D deficiency, unspecified
CPT/HCPCS: 36415; 80053; 80061; 82306; 84443; 85025

== ENCOUNTER 2020-10-19 12:25 | Outpatient (RCR) | payer MEDICARE, SELFPAY ==
[2020-07-22 13:23] VITALS: BMI 39.2
[2020-10-19] MEDS: COVID-19 VACC, MRNA(PFIZER)/PF 30 MCG/0.3 ML SYRINGE IM (18:19)
[2020-11-12] MEDS: COVID-19 VACC, MRNA(PFIZER)/PF 30 MCG/0.3 ML SYRINGE IM (17:53)
== END 2021-01-18 23:59 ==
LOC: IMMUN 12:25
PROVIDERS: PCP Family Medicine Geriatric Medicine; Visit Provider Family Medicine
DX: Z23 Encounter for immunization (principal)
CPT/HCPCS: 0001A; 0002A; 91300

== ENCOUNTER → 2020-10-27 07:42 | Outpatient (CLI) | payer MEDICARE, SELFPAY ==
[2020-07-22 13:23] VITALS: BMI 39.2
--- NOTE | 2020-10-27 07:44 | CT_ITS ---
STUDY: CT LUMBAR SPINE WITHOUT CONTRAST REASON FOR EXAM: Female, 80 years old. LUMBAR RADICULOPATHY RADIATION DOSAGE (If Supplied By Facility): CTDIvol = ( 44.27 ) mGy, DLP = ( 1208.83 ) mGycm TECHNIQUE: The patient was scanned in a multi detector CT scanner. High resolution transaxial imaging was performed. Images were obtained from T12 to S1 vertebral level. Sagittal and coronal images were reconstructed. Individualized dose optimization techniques were used for this CT. COMPARISON: None FINDINGS: Normal lumbar lordosis. There is no substantial scoliosis. Normal vertebrae of the lumbar spine. T12-L1: Mild degree of disc space narrowing and disc degeneration. Minimal retrolisthesis of T12 on L1 spondylosis. L1-2: Mild degree of disc space narrowing. Anterior spondylosis. Evidence of the left lateral disc herniation causing narrowing of the left intervertebral foramen. L2-3: Mild degree of disc space narrowing with disc degeneration. Diffuse posterior disc bulge. Bilateral neural foraminal stenosis slightly worse on the left side. Facet joint osteoarthritis and hypertrophy. Mild to moderate degree of central canal stenosis due to hypertrophy of the ligamentum flavum. L3-4: Hypertrophy of the facet joints bilaterally. Diffuse posterior disc bulge. Moderate degree of bilateral neural foraminal stenosis and mild degree of central canal stenosis. L4-5: Facet joint osteoarthritis and hypertrophy. Diffuse posterior disc bulge. Mild degree of bilateral neural foraminal stenosis. L5-S1: Marked degree of disc space narrowing and disc degeneration. Facet joint osteoarthritis and hypertrophy. No significant stenosis is seen. Atherosclerotic calcification of the aorta. CT/Spine Lumbar without Contrast IMPRESSION: Multilevel degenerative changes, as described above. Multilevel foraminal and central canal stenosis. Electronically Signed: Aneudy Moreira MD at 11:12 EDT , Service support ,
== END ==
PROVIDERS: PCP Family Medicine Geriatric Medicine; Referring Provider Family Medicine Geriatric Medicine; Visit Provider Family Medicine Geriatric Medicine
DX: M54.16 Radiculopathy, lumbar region (principal)
CPT/HCPCS: 72131

== ENCOUNTER 2020-11-07 10:30 | Emergency (ER) | payer MEDICARE, SELFPAY ==
[2020-07-22 13:23] VITALS: BMI 39.2
[2020-11-07 10:32] VITALS: BP 158/80; PULSE 79; RESP 16; TEMP 36.2; O2SAT 95; BMI 37.8
--- NOTE | 2020-11-07 10:45 | ED.VIS.GEN ---
History of Present Illness Chief Complaint: Lower Extremity Injury Informant: Patient Narrative: Patient is a 80-year-old female who presents to the emergency department for left buttock radiating down the left thigh pain. She states that she does have chronic back issues. She was doing cleaning Sunday when she feels like she aggravated her normal symptoms. She currently rates her pain as a 20 out of 10. She has been taking extra strength Tylenol and Aleve at home. This has not been giving her any relief. She states that she has not slept at all due to her discomfort. She denies any urinary retention. No saddle anesthesia. The pain does not go past her left knee. No pain rating down the right leg. She did have a CT scan performed within the past 2 weeks of her lumbar spine. Was told that she has disc disease. She has not followed up with her doctor and has an appointment tomorrow. She denies any falls or trauma. No fevers or chills. Any movements of the back and legs seems to aggravate her symptoms. She denies any blood thinning medications. Past Medical History - Allergies and Home Meds Allergies/Adverse Reactions: Allergies Penicillins Adverse Reaction (Severe, Verified 11/07/20 10:32) Swelling Primary Care Physician: Rancho Knott Chi, MD [Primary Care Provider] - 1 Day Prior records reviewed: Yes Surgical History: - - Right ankle surgery x2, cholecystectomy. Smoking Status: Former smoker - Family History Maternal Family History: Reports: Hypertension, Stroke Paternal Family History: Reports: Hypertension, Stroke Review of Systems All systems negative except as indicated General: Denies: Chills, Fever, Sweats Eyes: Denies: Visual changes - bilaterally, Diplopia ENT: Denies: Rhinorrhea, Sore throat Cardiovascular: Denies: Chest pain, Palpitations Respiratory: Denies: Dyspnea, Cough, Dyspnea on exertion Gastrointestinal: Denies: Abdominal pain, Nausea, Vomiting, Diarrhea, Melena, Hematochezia Genitourinary: Denies: Dysuria, Hematuria, Frequency Musculoskeletal: Reports: Back pain, Extremity Pain Skin: Denies: Rash, Wounds Neurological: Denies: Headache, Weakness, Numbness Physical Exam Vital Signs/Narrative: Vital Signs Temp Pulse Resp BP Pulse Ox 11/07/20 10:32 97.1 F L 79 16 158/80 H 95 Inital Vital Signs reviewed: Yes General: Well nourished, Well developed, No Acute Distress Head: Normocephalic, Atraumatic Eyes: Perrl, EOMI ENT: Moist mucous membranes, No rhinorrhea Neck: Supple, Nontender Cardiovascular: Regular rate, Regular rhythm, No murmurs Respiratory: No distress, CTA bilaterally, Chest nontender Abdomen: Soft, Nontender, Nondistended, Normal bowel sounds Back: Nontender, Normal Inspection. Negative for: Spinal tenderness Extremities: No edema, - - No midline spine tenderness. Pain over the left piriformis region. Negative straight leg test. 5 out of 5 muscle strength the lower extremities. Sensation intact. 2+ DP pulse. Skin: Normal color, No rash Neurological: Alert, Oriented x3, Cranial nerves II-XII grossly intact, Normal Strength, Normal Sensation Psychological: Normal affect, Normal Mood Diagnostic/Tx/Re-eval - Medical Decision Making Patient presents to the ED for acute on chronic nontraumatic low back pain radiating to the left leg. She is neurovascularly intact. Vital signs within normal limits. No red flag symptoms for acute surgical spinal emergency. Since she just recently had a CT scan of the lumbar spine do not feel any imaging is necessary at this time. Will treat symptomatically with a dose of [place] and reassess patient. Patient feeling much better on reexamination. She does feel comfortable going home at this time. She is going to call her PCP tomorrow for follow-up. I did write her a short prescription for [place] for home treatment. Return precautions are reviewed with her including any loss of sensation, muscle weakness or developing systemic symptoms. She understands and is agreeable this plan. Discharged home in stable condition. All questions answered. ED Disposition - Plan for ED Patient: Disposition: Home or Assisted Living Diagnosis: Low back pain, Left leg pain Instructions: ED Back Pain (Acute or Chronic) Prescriptions: Hydrocodone Bitart/Apap 5-325 [[place] 5MG-325MG] 1 tablet PO Q6H PRN PRN 3 Days #10 tab PRN Reason: Pain Transmission Status: Received by [id number] Referrals: Rancho Knott Chi, MD [Primary Care Provider] - 1 Day
[2020-11-07] MEDS: HYDROcodone Bitartrate/Apap 5/325 Tablet PO (10:55)
[2020-11-07] MEDS: Morphine 4 MG/ML Syringe IM (11:42)
[2020-11-07 12:22] VITALS: BP 142/75; PULSE 91; RESP 16; O2SAT 98
== END 2020-11-07 12:23 | disposition home or self-care (01) ==
PROVIDERS: Emergency Provider Emergency Medicine; PCP Family Medicine Geriatric Medicine
DX: M54.5 Low back pain (principal); M79.652 Pain in left thigh; Z90.49 Acquired absence of other specified parts of digestive tract; Z87.891 Personal history of nicotine dependence; Z79.82 Long term (current) use of aspirin
CPT/HCPCS: 96372; 99283

== ENCOUNTER → 2020-12-14 15:55 | Outpatient (CLI) | payer MEDICARE, SELFPAY | PROVIDERS: PCP Family Medicine Geriatric Medicine; Visit Provider Family Medicine Geriatric Medicine | DX: S81.809A Unspecified open wound, unspecified lower leg, initial encounter (principal); B95.62 Methicillin resistant Staphylococcus aureus infection as the cause of diseases classified elsewhere | CPT/HCPCS: 87070; 87205; 87640 ==

== ENCOUNTER → 2021-01-20 15:30 | Outpatient (CLI) | payer MEDICARE, SELFPAY ==
[2021-01-18 08:59] VITALS: BMI 37.8
[2021-01-20 17:16] LABS: Absolute Lymphocyte Count 1.95 X10^3/uL (0.83-4.51); Absolute Neutrophil Count 4.4 X10^3/uL (2.0-7.7); Basophil# 0.06 X10^3/uL; Basophil% 0.8 % (0-1); Eosinophil# 0.15 X10^3/uL; Eosinophils% 2.1 % (0-5); Hematocrit 39.7 % (37-47); Hemoglobin 12.9 g/dL (12.0-15.0); Lymphocyte # 1.95 X10^3/ul (0.83-4.51); Lymphocyte % 27.3 % (19-41); Mean Corp Hgb Conc 32.5 g/dL (32-36); Mean Corpuscular Hgb 30.5 pg (27.0-32.0); Mean Corpuscular Volume 93.9 fL (81-99); Mean Platelet Vol. 10.3 fl (6.2-12.0); Monocyte# 0.55 X10^3/uL; Monocyte% 7.7 % (0-10); NRBC Flagged by Analyzer 0 % (0-5); Neutrophil # 4.37 X10^3/uL (2.7-7.7); Neutrophil % 61.1 % (47-70); Platelet Count 273 K/mm3 (150-450); RBC Distribution Width CV 14.3 % (11.6-14.6); RBC Distribution Width SD 48.7 fl (35.1-43.9); Red Blood Count 4.23 M/mm3 (4.2-5.4); White Blood Count 7.2 K/mm3 (4.4-11.0)
[2021-01-20 17:53] LABS: Vitamin D,25 Hydroxy 16.6 ng/mL
[2021-01-20 18:05] LABS: AST(SGOT) 18 U/L (15-37); Alanine Aminotransfer ALT/SGPT 19 U/L (13-56); Albumin, Serum 3.5 g/dL (3.2-5.0); Alkaline Phosphatase 64 U/L (45-117); Anion Gap 7 (5-15); BUN 27 mg/dL (7-18); BUN/Creat Ratio 29.4 RATIO (10-20); Chloride 108 mmol/L (98-107); Cholesterol 222 mg/dL (200); Creatinine, Serum 0.92 mg/dL (0.55-1.02); EST Glomerular Filtration Rate 63 mL/min (>60); Est Glom Filt Rate - Afr Amer 76 mL/min (>60); Globulin 3.5 g/dL (2.2-4.2); Glucose 92 mg/dL (74-106); High Density Lipoprotein 50 mg/dL; Potassium 3.8 mmol/L (3.5-5.1); Sodium Level 144 mmol/L (136-145); Thyroid Stim Hormone (TSH) 2.79 uIU/mL (0.358-3.74); Triglycerides 230 mg/dL; Very Low Density Lipoprotein 46 mg/dL (5-40)
== END ==
PROVIDERS: PCP Family Medicine Geriatric Medicine; Visit Provider Family Medicine Geriatric Medicine
DX: E55.9 Vitamin D deficiency, unspecified (principal); E78.5 Hyperlipidemia, unspecified; I10 Essential (primary) hypertension
CPT/HCPCS: 36415; 80053; 80061; 82306; 84443; 85025

== ENCOUNTER 2021-02-10 09:46 | Inpatient (IN) | payer MEDICARE, SELFPAY ==
[2021-02-01 10:57] VITALS: BMI 37.8
[2021-02-10] VITALS (15 sets, daily range): BP systolic 122–186; BP diastolic 63–95; PULSE 86–125; RESP 18–27; TEMP 36.5–38.3; O2SAT 90–98; BMI 41.3; BMI 37.3
--- NOTE | 2021-02-10 10:02 | RAD_ITS ---
STUDY: X-RAY CHEST REASON FOR EXAM: Female, 80 years old. Low grade fever . Chest pain. TECHNIQUE: Single AP portable view of the chest. COMPARISON: Comparison is made with prior study of 09/28/2017. FINDINGS: EKG electrodes are seen. Minimal increased markings at the lung bases suggestive of mild scarring and/or atelectasis although there has been improvement as compared to prior study. There is no demonstrated pleural abnormality. There is mild cardiac enlargement. Normal mediastinum and edwin. Normal visualized pulmonary arteries. There is atherosclerotic calcification of the aortic arch with tortuosity. Normal visualized thoracic spine. There is degenerative osteoarthritis of the bilateral shoulders. There is no demonstrated abnormality of the visualized soft tissue structures of the upper abdomen. RAD/Chest 1 View (Portable) IMPRESSION: Mild cardiomegaly. Mild increased markings at the lung bases suggestive of atelectasis and/or scarring although there has been improvement as compared to prior study. Electronically Signed: Aneudy Moreira MD at 11:23 EDT , Service support ,
--- NOTE | 2021-02-10 10:02 | EKG12_ITS ---
Test Reason : FEVER Blood Pressure : / mmHG Vent. Rate : 120 BPM Atrial Rate : 120 BPM P-R Int : 124 ms QRS Dur : 068 ms QT Int : 304 ms P-R-T Axes : 059 074 041 degrees QTc Int : 429 ms Sinus tachycardia with occasional Premature ventricular complexes Nonspecific ST abnormality Abnormal ECG Confirmed by MAYRA MACHUCA, KERA ([id number]), book or script editor MAR CANTU ([id number]) on 02/11/2021 1:06:56 PM Referred By: TANYA Confirmed By:KERA NUNEZ MD
--- NOTE | 2021-02-10 10:04 | EDS_ITS ---
HPI History of Present Illness Chief Complaint: Fever Informant: patient Onset/Context/Timing Onset: Today Context: Gradual Onset Timing: Continuous Current Severity: Mild Maximum Severity: Mild Narrative Narrative: 80-year-old female history of hypothyroidism and degenerative disc disease of her lower back. States she just has aching discomfort in both lower extremities. She denies any fall or trauma. States she just not feeling well. Triage says fever she denies any documented fever at home. She denies any n ausea, vomiting or diarrhea. She denies cough or shortness of breath. She denies abdominal pain. She denies any dysuria. She denies ever having back surgery or any back procedures. Prior similar symptoms: No Recent Illness/Hospitalization: No [facility] Medical History History of arthritis History of asthma History of COPD History of Right Foot Fracture Hypothyroidism Home Medications levocetirizine 5 mg tablet 5 mg PO DAILY 04/06/20 [History Last Taken 07/20/20] aspirin 650 mg PO DAILY PRN PRN 07/20/20 [History Last Taken 02/09/21] cholecalciferol (vitamin D3) 25 mcg PO DAILY 02/10/21 [History Last Taken Unknown] ipratropium-albuterol 3 ml INHALATION 4X/DAY PRN 02/10/21 [History Last Taken 1 Week Ago ~02/03/21] levothyroxine 50 mcg PO DAILY 02/10/21 [History Last Taken 02/09/21] Allergy/AdvReac Type Severity Reaction Status Date / Time Penicillins AdvReac Severe Swelling Verified 02/10/21 09:50 Surgical History History of cholecystectomy Social History Smoking Status: Former smoker ROS ROS ED ROS Narrative Patient denies any nausea, vomiting, diarrhea or fever. States she is just not feeling well. Review of Systems ROS Unobtainable: Denies due to encephalopathy Constitutional Constitutional ED: Denies fever(s) Eyes Eyes: Denies change in vision ENT ENT ED: Denies ear pain or sore throat Cardiovascular Cardiovascular: Denies chest pain or palpitations Respiratory/Chest Respiratory/Chest: Denies cough, dyspnea or sputum Gastrointestinal Gastrointestinal: Denies abdominal pain, diarrhea, nausea or vomiting Genitourinary Genitourinary ED: Denies dysuria or hematuria Musculoskeletal Musculoskeletal: Reports myalgias Integumentary Denies abscess or rash Neurologic Neurologic: Denies headache(s) Psychiatric Psychiatric: Denies depression Endocrine Endocrinology: Denies polyuria Allergic/Immunologic Allergic/Immunologic ED: Denies urticaria EXAM Physical Exam Narrative Exam Narrative: Well-appearing older female. Vital signs are stable other than she is tachycardic at around 125. Temperature is 99.9 temporal. She does not look septic at this time but she is tachycardic with a low-grade temperature. HEENT exam unremarkable. Lungs are clear. Heart tachycardic rate about 125 no murmur. Abdomen soft nontender normal bowel sounds no peritoneal signs. Moving all 4 extremities. Neurovascularly intact. Legs are unremarkable. She has dorsi and plantar flexion. She is flex extend both ankles, knees and hips. There is no redness or swelling. No calf pain. No cauda equina. No saddle anesthesia. Normal medial thigh sensation. Normal dorsi plantar flexion. Back exam is nontender. There is no CVA or spine tenderness. No signs of trauma. Neurologically she is awake alert with no focal motor deficits. Const Vital Signs: 02/10/21 09:47 02/10/21 09:52 02/10/21 09:54 Temperature 99.9 F H 99.9 F H Temperature Source Temporal Temporal Pulse Rate 125 H 125 H Respiratory Rate 20 H 20 H Respiratory Effort Normal Non-Labored Respiratory Pattern Normal Blood Pressure 170/81 H 170/81 H Blood Pressure Mean 110 110 Pulse Ox 94 94 Oxygen Delivery Method Room Air Room Air Oxygen Flow Rate (L/min) 02/10/21 10:02 02/10/21 10:10 02/10/21 12:02 Temperature 100.9 F H 100.1 F H Temperature Source Oral Oral Pulse Rate 121 H 105 H Respiratory Rate 27 H 24 H Respiratory Effort Respiratory Pattern Blood Pressure 151/89 H 160/89 H Blood Pressure Mean 109 112 Pulse Ox 93 90 98 Oxygen Delivery Method Room Air Room Air Nasal Cannula Oxygen Flow Rate (L/min) 2 Positive well nourished and well developed General Appearance ED: well developed HEENT Reports moist mucous membranes Negative for trauma or tenderness Eyes PERRL and EOMs intact bilaterally Neck no lymphadenopathy, supple and no JVD General: Negative for tenderness Chest Wall inspection of chest normal and palpation of chest normal Resp normal respiratory effort and clear to auscultation bilaterally Cardio regular rhythm, S1 normal heart sound, S2 normal heart sound and no murmurs Rate: tachycardic GI normal to inspection, nondistended, normoactive bowel sounds, non-tender, non- distended and no masses Inspection: Negative for abdominal distention Auscultation: normoactive bowel sounds Palpation: soft; Negative for tender, guarding or rebound tenderness present Back/Spine no CVA tenderness General Back: Negative for CVA tenderness Cervical Spine: Negative for cervical spine tenderness Thoracic Spine / Upper Back: Negative for thoracic spinal tenderness or paraspinal muscle tenderness Lumbar Spine / Lower Back: Negative for lumbar spinal tenderness Extremity normal to inspection General Extremety ED: Negative for edema or tenderness General Extremity: Negative for edema Neuro oriented x3, CN's II-XII intact bilaterally and No no sensory deficits noted Sensorium / Orientation: alert; Negative for orientation impaired, lethargic or stuporous Motor Exam: strength 5/5 throughout Psych mental status grossly normal Skin no rashes or lesions noted and no wounds MDM MDM MDM Narrative Medical decision making narrative: Older female tachycardic with a low-grade temperature. Complains of bilateral legs aching but they are neurovascularly intact. They are without rashes nor edema. Back is nontender. She will be worked up for possible sepsis with a low-grade temperature and tachycardia. She really has nothing specific on physical exam. She will be treated with a liter of normal saline. Morphine for pain and Zofran to prevent nausea. Repeat exam at 1:45 p.m. no change. Discussed about the patient and her notes that she is been very weak at home and is having trouble even get around the house I will speak to the hospitalist about admission for fever of uncertain etiology. A Covid test is also been ordered. Patient has had her vaccinations. Also spoke to the hospitalist and he wants me to treat the patient for possible pneumonia due to her recent cough. She be started on IV Rocephin and Zithromax. Lab Data Attestation: I reviewed the patient's lab results. Lab results narrative: CBC shows a slightly elevated white count 1.9 normal hemoglobin 14. No bands. PT INR PTT unremarkable electrolytes unremarkable gap is 7 normal creatinine 0.9. Liver enzymes normal. Lactic acid normal 1.0. UA negative. And chest x-ray and EKG were unremarkable. Labs: Laboratory Results - last 24 hr 02/10/21 02/10/21 02/10/21 10:00 10:00 10:00 WBC 11.9 H RBC 4.61 Hgb 14.0 Hct 42.5 MCV 92.2 MCH 30.4 MCHC 32.9 RDW Std Deviation 47.5 H RDW Coeff of Stevie 13.9 Plt Count 235 MPV 9.7 Immature Gran % (Auto) 0.500 Neut % (Auto) 85.5 H Lymph % (Auto) 8.[address] [place] % (Auto) 4.7 Eos % (Auto) 0.1 Baso % (Auto) 0.3 Absolute Neuts (auto) 10.2 H Absolute Lymphs (auto) 1.06 Nucleated RBC % 0 PT 13.5 INR 1.1 APTT 28.4 Sodium 136 Potassium 3.5 Chloride 103 Carbon Dioxide 26.0 Anion Gap 7 BUN 18 Creatinine 0.90 Estim Creat Clear Calc 40.74 Est GFR (MDRD) Af Amer 78 Est GFR (MDRD) Non-Af 64 BUN/Creatinine Ratio 19.9 Glucose 110 H Lactic Acid Calcium 8.7 Total Bilirubin 0.50 AST 17 ALT 16 Alkaline Phosphatase 71 Total Protein 7.5 Albumin 3.6 Globulin 3.9 Albumin/Globulin Ratio 0.9 Urine Color Urine Clarity Urine pH Ur Specific [place] Urine Protein Urine Glucose (UA) Urine Ketones Urine Occult Blood Urine Nitrite Urine Bilirubin Urine Urobilinogen Ur Leukocyte Esterase Urine RBC Urine WBC Ur Squamous Epith Cells Urine Bacteria Urine Mucus 02/10/21 02/10/21 10:00 10:24 WBC RBC Hgb Hct MCV MCH MCHC RDW Std Deviation RDW Coeff of Stevie Plt Count MPV Immature Gran % (Auto) Neut % (Auto) Lymph % (Auto) [place] % (Auto) Eos % (Auto) Baso % (Auto) Absolute Neuts (auto) Absolute Lymphs (auto) Nucleated RBC % PT INR APTT Sodium Potassium Chloride Carbon Dioxide Anion Gap BUN Creatinine Estim Creat Clear Calc Est GFR (MDRD) Af Amer Est GFR (MDRD) Non-Af BUN/Creatinine Ratio Glucose Lactic Acid 1.0 Calcium Total Bilirubin AST ALT Alkaline Phosphatase Total Protein Albumin Globulin Albumin/Globulin Ratio Urine Color Yellow Urine Clarity Clear Urine pH 6.0 Ur Specific [place] 1.020 Urine Protein 30 H Urine Glucose (UA) Normal Urine Ketones 15 H Urine Occult Blood 10 H Urine Nitrite Negative Urine Bilirubin Negative Urine Urobilinogen 1 H Ur Leukocyte Esterase 25 H Urine RBC 0 SEEN Urine WBC 0 SEEN Ur Squamous Epith Cells 0 SEEN Urine Bacteria 0 SEEN Urine Mucus 1+ Radiography Chest X-Ray - ED: 1 View, Read by ED Physician, Read by Radiologist, Normal, Heart, Lungs, Mediastinum, Bony Structures, No Acute Disease and Chronic Changes Diagnostic Testing: Radiology Impression Chest X-Ray 02/10/21 10:02 IMPRESSION: Mild cardiomegaly. Mild increased markings at the lung bases suggestive of atelectasis and/or scarring although there has been improvement as compared to prior study. Electronically Signed: Aneudy Moreira MD at 11:23 EDT , Service support , Rhythm Strip Rhythm Strip: Sinus Tach Rate: 120 Ectopy: PVC(s) EKG Initial EKG: Attestation: I personally reviewed and interpreted this EKG as follows: Interpretation: Sinus Rhythm, No Acute Injury Pattern and Sinus Tachycardia Comments: Sinus tachycardia rate of 120 with occasional PVCs. No signs of ND nor ischemia. Prior EKG tracings: not available for review Prior: No Prior Discharge Plan Dx/Rx/DC Orders Clinical Impression: Fever, Generalized weakness Disposition Disposition: Acute Care Hospital [facility]
[2021-02-10] MEDS: 0.9% Normal Saline 1,000 ML 999 ML IV (10:10)
[2021-02-10] MEDS: morphine 8 MG/ML Syringe 6 MG IV ×2 (10:11→14:04)
[2021-02-10] MEDS: Ondansetron 4 MG/2 ML Vial IV (10:11)
[2021-02-10 10:22] LABS: Absolute Lymphocyte Count 1.06 X10^3/uL (0.83-4.51); Absolute Neutrophil Count 10.2 X10^3/uL (2.0-7.7); Basophil# 0.03 X10^3/uL; Basophil% 0.3 % (0-1); Eosinophil# 0.01 X10^3/uL; Eosinophils% 0.1 % (0-5); Hematocrit 42.5 % (37-47); Lymphocyte # 1.06 X10^3/ul (0.83-4.51); Lymphocyte % 8.9 % (19-41); Mean Corp Hgb Conc 32.9 g/dL (32-36); Mean Corpuscular Hgb 30.4 pg (27.0-32.0); Mean Corpuscular Volume 92.2 fL (81-99); Mean Platelet Vol. 9.7 fl (6.2-12.0); Monocyte# 0.56 X10^3/uL; Monocyte% 4.7 % (0-10); NRBC Flagged by Analyzer 0 % (0-5); Neutrophil # 10.15 X10^3/uL (2.7-7.7); Neutrophil % 85.5 % (47-70); Platelet Count 235 K/mm3 (150-450); RBC Distribution Width CV 13.9 % (11.6-14.6); RBC Distribution Width SD 47.5 fl (35.1-43.9); Red Blood Count 4.61 M/mm3 (4.2-5.4); White Blood Count 11.9 K/mm3 (4.4-11.0)
[2021-02-10 10:30] LABS: Bacteria 0 SEEN /hpf (None Seen); Red Blood Cells-Urine 0 SEEN /hpf (0-5); Squamous Epithelial Cells - UA 0 SEEN /hpf (5-10); White Blood Cells 0 SEEN /hpf (0-5)
[2021-02-10 10:30] LABS: International Normalized Ratio 1.1; Prothrombin Time (Protime)PT. 13.5 SECONDS (11.7-14.9)
[2021-02-10 10:31] LABS: Partial Thromboplast Time 28.4 Seconds (24.1-36.2)
[2021-02-10 10:38] LABS: ALB/GLOB Ratio 0.9 RATIO (0.9-2.4); AST(SGOT) 17 U/L (15-37); Alanine Aminotransfer ALT/SGPT 16 U/L (13-56); Albumin, Serum 3.6 g/dL (3.2-5.0); Alkaline Phosphatase 71 U/L (45-117); Anion Gap 7 (5-15); BUN 18 mg/dL (7-18); BUN/Creat Ratio 19.9 RATIO (10-20); Calcium,Total 8.7 mg/dL (8.5-10.1); Chloride 103 mmol/L (98-107); EST Glomerular Filtration Rate 64 mL/min (>60); Est Glom Filt Rate - Afr Amer 78 mL/min (>60); Estimated Creatinine Clearance 40.74 ml/min; Globulin 3.9 g/dL (2.2-4.2); Glucose 110 mg/dL (74-106); Potassium 3.5 mmol/L (3.5-5.1); Protein, Total 7.5 g/dL (6.4-8.2); Sodium Level 136 mmol/L (136-145)
[2021-02-10 10:41] LABS: Color, Urine Yellow (Yellow); Glucose, Dipstick Normal (Normal); Ketone-Dipstick 15 mg/dl (Negative); Leukocyte Esterase-Dipstick 25 /ul (Negative); Nitrite-Dipstick Negative (Negative); Occult Blood-Urine 10 /ul (Negative); Protein-Dipstick 30 mg/dl (Negative); Urine Bilirubin Dipstick Negative (Negative); Urine Clarity Clear (Clear); Urine Urobilinogen 1 mg/dl (Normal)
[2021-02-10 10:48] LABS: Mucous, Urine 1+ /hpf (<or=2+)
--- NOTE | 2021-02-10 13:57 | NURSING ---
DR KHAN FOR DR MARIA
--- NOTE | 2021-02-10 14:16 | HP.PCM.HOS_ITS ---
[facility] - General General Date of Admission: 02/10/21 Date of Service: 02/10/21 Chief Complaint: Weakness. HPI Cherelle SHERMAN, is a 80 F with past medical history as mentioned below presented to the emergency room because of weakness. Her symptoms started yesterday, generalized weakness, associated with fatigue and no other specific symptoms and no aggravating or relieving factors. Upon further questioning, patient stated that she has been having cough with minimal sputum over the last 3 days. Denied associated shortness of breath. She denied fever or chills. She reported diarrhea couple times yesterday. Denied abdominal pain, nausea or vomiting. She stated that she received her cough vaccine on November,. In the emergency department, she was febrile, tachycardic, tachypneic, blood pressure was slightly elevated. Pulse ox was 98% on 2 L. Routine blood work was remarkable for minimal leukocytosis with neutrophilia, otherwise normal. LFT was unremarkable. Lactic acid was normal. Urinalysis showed no evidence of acute cystitis. EKG revealed sinus tachycardia with PVCs, no acute ischemic changes. Chest x-ray revealed obliteration of the left costophrenic angle with haziness, no obvious infiltrate but cannot rule out pneumonia. Patient is being admitted for SIRS and probable pneumonia as well as hypoxia. [facility] Medical History History of arthritis History of asthma History of COPD History of Right Foot Fracture Hypothyroidism Home Medications levocetirizine 5 mg tablet 5 mg PO DAILY 04/06/20 [History Last Taken 07/20/20] aspirin 650 mg PO DAILY PRN PRN 07/20/20 [History Last Taken 02/09/21] cholecalciferol (vitamin D3) 25 mcg PO DAILY 02/10/21 [History Last Taken Unknown] ipratropium-albuterol 3 ml INHALATION 4X/DAY PRN 02/10/21 [History Last Taken 1 Week Ago ~02/03/21] levothyroxine 50 mcg PO DAILY 02/10/21 [History Last Taken 02/09/21] Allergy/AdvReac Type Severity Reaction Status Date / Time Penicillins AdvReac Severe Swelling Verified 02/10/21 09:50 Surgical History History of cholecystectomy Social History Smoking Status: Former smoker ROS Constitutional Constitutional: Reports fever(s), malaise and weakness; Denies anorexia, chills or fatigue Eyes Eyes: Denies blurry vision, change in eye color, change in vision, double vision or eye pain ENT HEENT: Denies ear discharge, ear pain, epistaxis, headache(s), nasal congestion, post nasal drip or sore throat Cardiovascular Cardiovascular: Denies chest pain, dyspnea on exertion, edema, lightheadedness, orthopnea, palpitations, paroxysmal nocturnal dyspnea or syncope Respiratory/Chest Respiratory/Chest: Reports cough and productive cough; Denies dyspnea, hemoptysis, shortness of breath at rest, shortness of breath with exertion or wheezing Gastrointestinal Gastrointestinal: Reports diarrhea; Denies abdominal pain, constipation, hematemesis, hematochezia, melena, nausea or vomiting Genitourinary Genitourinary: Denies burning urination, dysuria, hematuria, urinary hesitancy or urinary urgency Musculoskeletal Musculoskeletal: Reports back pain; Denies arthralgias, joint pain, joint swelling, myalgias or neck pain Neurologic Neurologic: Denies confusion, dizziness, focal weakness, headache(s), numbness, paresthesias, seizures, tingling, tremor(s) or vertigo Psychiatric Psychiatric: Denies anxiety, depression, hallucinations, homicidal ideation or suicidal ideation Endocrine Endocrinology: Denies change in body appearance, cold intolerance, heat intolerance, polydipsia or polyuria Hematologic/Lymphatic Hematologic/Lymphatic: Denies easy bleeding, easy bruising or lymphadenopathy Allergic/Immunologic Allergic/Immunologic: Denies itchy eyes, rhinitis, throat swelling, tongue swelling, hives, urticaria or wheezing Vital Signs Vital Signs Vital Signs: 02/10/21 09:47 02/10/21 09:52 02/10/21 09:54 Temperature 99.9 F H 99.9 F H Temperature Source Temporal Temporal Pulse Rate 125 H 125 H Respiratory Rate 20 H 20 H Respiratory Effort Normal Non-Labored Respiratory Pattern Normal Blood Pressure 170/81 H 170/81 H Blood Pressure Mean 110 110 Pulse Ox 94 94 Oxygen Delivery Method Room Air Room Air Oxygen Flow Rate (L/min) 02/10/21 10:02 02/10/21 10:10 02/10/21 12:02 Temperature 100.9 F H 100.1 F H Temperature Source Oral Oral Pulse Rate 121 H 105 H Respiratory Rate 27 H 24 H Respiratory Effort Respiratory Pattern Blood Pressure 151/89 H 160/89 H Blood Pressure Mean 109 112 Pulse Ox 93 90 98 Oxygen Delivery Method Room Air Room Air Nasal Cannula Oxygen Flow Rate (L/min) 2 Weight Weight: 226 lb Body Mass Index (BMI) 41.3 Physical Exam Const alert, oriented x3, no apparent distress and no limitations General Appearance: cooperative HEENT normocephalic, head/scalp atraumatic, external ears normal, external nose normal and moist oral mucous membranes Eyes PERRL, EOMs intact bilaterally, conjunctivae normal and no scleral icterus General Eye: normal appearance of both eyes Neck no lymphadenopathy, supple, no meningeal signs, no JVD and no carotid bruits Lymph Lymphatic: no lymphadenopathy noted Resp normal respiratory effort and normal air movement Resp Narrative: Decreased breath sounds at the bases, otherwise clear. Auscultation: Negative for crackles, rales, rhonchi or wheezes Cardio regular rate, regular rhythm, S1 normal heart sound, S2 normal heart sound, no murmurs and no JVD Cardio Narrative: Tachycardia. GI normal to inspection, nondistended, normoactive bowel sounds, soft to palpation, non-tender and non-distended; Negative for hepatosplenomegaly Extremity normal to inspection, full ROM and no clubbing, cyanosis or edema Skin no rashes or lesions noted, no wounds and no petechiae Neuro oriented x3, CN's II-XII intact bilaterally and moves all extremities Sensorium / Orientation: alert Speech: speech normal Motor Exam: strength 5/5 throughout Psych mental status grossly normal and affect normal Appearance: appropriate Results Lab / Micro Data Result Diagrams: 02/10/21 10:00 02/10/21 10:00 Labs: Laboratory Results - last 24 hr 02/10/21 02/10/21 02/10/21 10:00 10:00 10:00 WBC 11.9 H RBC 4.61 Hgb 14.0 Hct 42.5 MCV 92.2 MCH 30.4 MCHC 32.9 RDW Std Deviation 47.5 H RDW Coeff of Stevie 13.9 Plt Count 235 MPV 9.7 Immature Gran % (Auto) 0.500 Neut % (Auto) 85.5 H Lymph % (Auto) 8.9 L [place] % (Auto) 4.7 Eos % (Auto) 0.1 Baso % (Auto) 0.3 Absolute Neuts (auto) 10.2 H Absolute Lymphs (auto) 1.06 Nucleated RBC % 0 PT 13.5 INR 1.1 APTT 28.4 Sodium 136 Potassium 3.5 Chloride 103 Carbon Dioxide 26.0 Anion Gap 7 BUN 18 Creatinine 0.90 Estim Creat Clear Calc 40.74 Est GFR (MDRD) Af Amer 78 Est GFR (MDRD) Non-Af 64 BUN/Creatinine Ratio 19.9 Glucose 110 H Lactic Acid Calcium 8.7 Total Bilirubin 0.50 AST 17 ALT 16 Alkaline Phosphatase 71 Total Protein 7.5 Albumin 3.6 Globulin 3.9 Albumin/Globulin Ratio 0.9 Urine Color Urine Clarity Urine pH Ur Specific [place] Urine Protein Urine Glucose (UA) Urine Ketones Urine Occult Blood Urine Nitrite Urine Bilirubin Urine Urobilinogen Ur Leukocyte Esterase Urine RBC Urine WBC Ur Squamous Epith Cells Urine Bacteria Urine Mucus 02/10/21 02/10/21 10:00 10:24 WBC RBC Hgb Hct MCV MCH MCHC RDW Std Deviation RDW Coeff of Stevie Plt Count MPV Immature Gran % (Auto) Neut % (Auto) Lymph % (Auto) [place] % (Auto) Eos % (Auto) Baso % (Auto) Absolute Neuts (auto) Absolute Lymphs (auto) Nucleated RBC % PT INR APTT Sodium Potassium Chloride Carbon Dioxide Anion Gap BUN Creatinine Estim Creat Clear Calc Est GFR (MDRD) Af Amer Est GFR (MDRD) Non-Af BUN/Creatinine Ratio Glucose Lactic Acid 1.0 Calcium Total Bilirubin AST ALT Alkaline Phosphatase Total Protein Albumin Globulin Albumin/Globulin Ratio Urine Color Yellow Urine Clarity Clear Urine pH 6.0 Ur Specific [place] 1.020 Urine Protein 30 H Urine Glucose (UA) Normal Urine Ketones 15 H Urine Occult Blood 10 H Urine Nitrite Negative Urine Bilirubin Negative Urine Urobilinogen 1 H Ur Leukocyte Esterase 25 H Urine RBC 0 SEEN Urine WBC 0 SEEN Ur Squamous Epith Cells 0 SEEN Urine Bacteria 0 SEEN Urine Mucus 1+ Rhythm Strip Rhythm Strip: Sinus Tach Rate: 120 Ectopy: PVC(s) Radiology Impression Chest X-Ray 02/10/21 10:02 IMPRESSION: Mild cardiomegaly. Mild increased markings at the lung bases suggestive of atelectasis and/or scarring although there has been improvement as compared to prior study. Electronically Signed: Aneudy Moreira MD at 11:23 EDT , Service support , Assessment & Plan Assessment/Plan (1) Community acquired pneumonia: (2) Systemic inflammatory response syndrome: (3) DDD (degenerative disc disease), lumbar: (4) Back pain: QUALIFIERS: Back pain location: low back pain Chronicity: acute Back pain laterality: left Sciatica presence: without sciatica Qualified Code(s): M54.5 - Low back pain (5) Hypothyroidism: PLAN: This is a 80 years old female patient presented to the emergency because of weakness and malaise as well as cough, developed fever of up to 100.9 Fahrenheit in the ED, found to have findings consistent with SIRS with probably community-acquired pneumonia and she is being admitted for evaluation and treatment. #1 SIRS: Lactic acid is normal. She is tachycardic, tachypneic and having fever. She does have leukocytosis with neutrophilia. Chest x-ray reviewed as above. Urinalysis was clean. COVID-19 antigen is pending. Plan: Admit to [facility] floor, telemetry monitoring, blood culture, urine culture, start empiric IV Rocephin and Zithromax as above, IV fluids, Tylenol as needed, Zofran as needed, repeat CBC and BMP tomorrow morning, PT OT evaluation and treatment. #2 probable community-acquired pneumonia: Chest x-ray reviewed. No obvious infiltrate but there is rotation of the left costophrenic angle, cannot rule out underlying infiltrate. Plan: Start IV Rocephin and Zithromax empirically, oxygen by the cannula, incentive spirometer, pancultures as above, repeat chest x-ray PA and lateral tomorrow morning. #3 hypoxia: Currently, she is on 2 L. She uses CPAP at home at night. Plan as above. #4 hypothyroidism: Continue levothyroxine. #5 chronic back pain: Plan for OxyIR as needed for pain, Tylenol as needed, PT O T. #6 obstructive sleep apnea: Continue CPAP with home settings. #7 DVT prophylaxis: Subcu Lovenox. This note was generated with [employer] software. It may contain incorrect words, spelling, and punctuation that were not noted in checking the note before signing. Charges/Coding Visit Charges Inpatient E&M: 57212 Init Hosp L2
--- NOTE | 2021-02-10 14:28 | NURSING ---
MED SURG OBS ASHELFAH WEAKNESS, FEVER OF UNKNOWN ETIOLOGY
[2021-02-10] MEDS: Ceftriaxone 1 GM/50 ML BAG IV (14:56)
[2021-02-10] MEDS: 0.9% Normal Saline 1,000 ML 100 ML IV (15:30)
[2021-02-10] MEDS: Albuterol 2.5 MG/3 ML VIAL.NEB. INHALATION (15:48)
[2021-02-10] MEDS: Ipratropium/Albuterol Sulfate 3 ML AMPUL.NEB INHALATION (19:23)
[2021-02-10] MEDS: Acetaminophen 325 MG Tablet 650 MG PO (22:05)
[2021-02-10] MEDS: guaiFENesin 10 ML UDC (200MG/10ML) 20 ML PO (22:05)
[2021-02-11] VITALS (15 sets, daily range): BP systolic 115–137; BP diastolic 52–66; PULSE 82–99; RESP 16–20; TEMP 36.4–37; O2SAT 92–99
[2021-02-11] MEDS: Ipratropium/Albuterol Sulfate 3 ML AMPUL.NEB INHALATION ×4 (01:11→19:43)
--- NOTE | 2021-02-11 05:55 | RAD_ITS ---
History: Fever EXAMINATION/TECHNIQUE: XR Chest 2 Views: COMPARISON: February 10, 2021 FINDINGS: LINES/DEVICES: None. LUNGS: Increasing platelike atelectasis at both lung bases No pneumothorax. MEDIASTINUM AND CARDIOVASCULAR STRUCTURES: Cardiac silhouette not enlarged. Central airways and mediastinal contour are unremarkable. BONES AND SOFT TISSUES: Unremarkable. RAD/Chest PA and Lateral IMPRESSION: Increasing bibasilar atelectasis. at 0917 Reported and signed by: Cole Chauhan MD Electronically Signed: Cole Chauhan MD at 9:16 EDT Tel , Service support ,
[2021-02-11] MEDS: Levothyroxine 50 MCG Tablet PO (06:04)
[2021-02-11 06:23] LABS: Absolute Lymphocyte Count 0.63 X10^3/uL (0.83-4.51); Absolute Neutrophil Count 5.5 X10^3/uL (2.0-7.7); Basophil# 0.02 X10^3/uL; Basophil% 0.3 % (0-1); Eosinophil# 0.01 X10^3/uL; Eosinophils% 0.2 % (0-5); Hemoglobin 12.2 g/dL (12.0-15.0); Lymphocyte # 0.63 X10^3/ul (0.83-4.51); Lymphocyte % 9.6 % (19-41); Mean Corp Hgb Conc 31.3 g/dL (32-36); Mean Corpuscular Hgb 30.1 pg (27.0-32.0); Mean Corpuscular Volume 96.3 fL (81-99); Monocyte# 0.39 X10^3/uL; Monocyte% 5.9 % (0-10); NRBC Flagged by Analyzer 0 % (0-5); Neutrophil # 5.49 X10^3/uL (2.7-7.7); Neutrophil % 83.5 % (47-70); Platelet Count 180 K/mm3 (150-450); RBC Distribution Width CV 14.1 % (11.6-14.6); RBC Distribution Width SD 50.7 fl (35.1-43.9); Red Blood Count 4.05 M/mm3 (4.2-5.4); White Blood Count 6.6 K/mm3 (4.4-11.0)
[2021-02-11 06:46] LABS: Anion Gap 6 (5-15); BUN 17 mg/dL (7-18); BUN/Creat Ratio 20.6 RATIO (10-20); Calcium,Total 8.2 mg/dL (8.5-10.1); Chloride 109 mmol/L (98-107); Creatinine, Serum 0.82 mg/dL (0.55-1.02); EST Glomerular Filtration Rate 71 mL/min (>60); Est Glom Filt Rate - Afr Amer 86 mL/min (>60); Estimated Creatinine Clearance 44.72 ml/min; Glucose 104 mg/dL (74-106); Potassium 3.6 mmol/L (3.5-5.1); Sodium Level 142 mmol/L (136-145)
--- NOTE | 2021-02-11 07:18 | CPS ---
Patient on oxygen before going down to xray. Upon return patient had been on room air for 15+ minutes, SpO2 96%, left off oxygen at this time.
[2021-02-11] MEDS: Acetaminophen 325 MG Tablet 650 MG PO ×2 (08:46→16:36)
[2021-02-11] MEDS: Enoxaparin 40 MG/0.4 ML Syringe SC (09:01)
[2021-02-11] MEDS: Loratadine 10 MG Tablet PO (09:01)
[2021-02-11] MEDS: Ceftriaxone 1 GM/50 ML BAG IV (09:09)
[2021-02-11] MEDS: 0.9% Saline Lock 10 ML Syringe IV ×2 (09:09→13:39)
--- NOTE | 2021-02-11 12:47 | CASEMGMT ---
SHERITA LEMON Assessment: Face to Face with pt for initial transition planning/care coordination assessment. SHERITA LEMON introduced self and role at [facility], pt voices understanding and consents to assessment. Pt is A/O x4 and answers all questions appropriately at this time. Pt sitting up in bed with at bedside. Care providers, pharmacy, and demographics verified/updated. Admitting Dx: SIRS, probable pna, hypoxia PCP: Nikos Specialists:renuka Monreal; zara Haddad [facility]: yes LW/HPOA: Pt has LW/DPOA on file at [facility]. Her DPOA is dtr Valeri Villa. Pt states her DPOA should be Madeleine Augustus. Made her aware if it was updated, she may bring a copy in to scan. LNOK: Wilfrid Alarcon, ; Madeleine Coffman, granddtr; Valeri Villa, dtr Living Arrangements: Pt lives with in a mobile home with 4 steps to enter with a rail on each side. Pt reports she is I in ADL's. Transportation: Pt drives self and also drives. DME/HHC/SNF: Pt has a cane, walker, CPAP through [employer] and grab bars in the bathroom. Pt states she uses AD sometimes. Pt denies history of HHC or SNF stays. Pt states no concerns with going home at time of dc. Pt states she feels weak but is not sure if she would want therapy post dc. She worked with therapy today and states she felt like her normal self. Pt states no further concerns/needs. CM to follow. CM to check back later today to see if pt desires therapy post dc. Advised pt to ask CM if any further question/concerns/needs arise, voices understanding. Pt Goal: Home Plan: Home,following therapy
--- NOTE | 2021-02-11 13:29 | CASEMGMT ---
RN CM back to pt room. Per therapy note, no therapy recommended. Pt states she is pretty independent and denies need for therapy post hospital stay.
--- NOTE | 2021-02-11 14:02 | CASEMGMT ---
Social Work Note Per caustic plant worker questions, pt has completed HCPOA and LW and provided documents to [facility]. Pt stated her HCPOA is Madeleine Coffman. SW reviewed echart, HCPOA and LW are on file but Madeleine is not listed as HCPOA. SW in to speak with pt. SW introduced self and role at [facility]. Pt is alert and orientated, states she would like to redo HCPOA and LW to name Madeleine as her POA. Pt completed HCPOA and LW. Original provided to pt and copy placed on pt's chart. Madeleine Curtis DRAFTING ENGINEER, YOU[employer] CARE PROFESSIONAL
[2021-02-11] MEDS: guaiFENesin 10 ML UDC (200MG/10ML) 20 ML PO ×2 (16:36→20:33)
--- NOTE | 2021-02-11 18:15 | PCM.PN.HOSP ---
Subjective Subjective Patient was seen and examined today, she is currently on room air. Patient denies any fevers or chills at this time, she has been afebrile today. Patient's white blood cell count today is 6.6. Objective Data Objective Data Vital Signs: Vital Signs Temp Pulse Resp BP Pulse Ox 98.4 F 90 18 137/66 H 94 02/11/21 16:43 02/11/21 16:43 02/11/21 16:43 02/11/21 16:43 02/11/21 16:43 Oxygen Flow Rate (L/min) 2 Oxygen Delivery Method Room Air Weight: 92.487 kg Body Mass Index (BMI) 37.3 Intake & Output: Intake and Output for Last 24 Hours 02/09/21 02/10/21 02/11/21 23:59 23:59 23:59 Intake Total 1416.67 / 1416.67 2295 / 2295 Output Total 700 / 700 Balance 1416.67 / 1416.67 1595 / 1595 Lab / Micro Data Result Diagrams: 02/11/21 05:50 02/11/21 05:50 Labs: Laboratory Results - last 24 hr 02/11/21 02/11/21 05:50 05:50 WBC 6.6 RBC 4.05 L Hgb 12.2 Hct 39.0 MCV 96.3 MCH 30.1 MCHC 31.3 L RDW Std Deviation 50.7 H RDW Coeff of Stevie 14.1 Plt Count 180 MPV 10.0 Immature Gran % (Auto) 0.500 Neut % (Auto) 83.5 H Lymph % (Auto) 9.6 L Woodward % (Auto) 5.9 Eos % (Auto) 0.2 Baso % (Auto) 0.3 Absolute Neuts (auto) 5.5 Absolute Lymphs (auto) 0.63 L Nucleated RBC % 0 Sodium 142 Potassium 3.6 Chloride 109 H Carbon Dioxide 27.0 Anion Gap 6 BUN 17 Creatinine 0.82 Estim Creat Clear Calc 44.72 Est GFR (MDRD) Af Amer 86 Est GFR (MDRD) Non-Af 71 BUN/Creatinine Ratio 20.6 H Glucose 104 Calcium 8.2 L Micro: Microbiology 02/10/21 10:24 Urine Catheter - Catheter Urine Culture - Preliminary Culture exhibits no growth. 02/10/21 Unknown Mucosa - Nose SARS-CoV-2 Antigen (Rapid) - Final Radiography Diagnostic Testing: Radiology Impression Chest X-Ray 02/11/21 05:55 IMPRESSION: Increasing bibasilar atelectasis. at 0917 Reported and signed by: Cole Chauhan MD Electronically Signed: Cole Chauhan MD at 9:16 EDT Tel , Service support , Rhythm Strip Rhythm Strip: Sinus Tach Rate: 120 Ectopy: PVC(s) Physical Exam Const alert, oriented x3, no apparent distress, average body habitus and healthy appearing General Appearance: cooperative, well kempt and well developed Orientation / Consciousness: awake, oriented to person, oriented to place and oriented to time HEENT normocephalic, head/scalp atraumatic and moist oral mucous membranes Head and Scalp: normocephalic Eyes PERRL, EOMs intact bilaterally and conjunctivae normal Neck nuchal rigidity, supple, no JVD, thyroid normal and no carotid bruits General: trachea midline Resp normal respiratory effort and clear to auscultation bilaterally Auscultation: Negative for rales, rhonchi or wheezes Cardio regular rate, regular rhythm, S1 normal heart sound, S2 normal heart sound, no murmurs, no rub and no gallops GI normal to inspection, nondistended, normoactive bowel sounds, soft to palpation, non-tender and non-distended Extremity normal to inspection and no clubbing, cyanosis or edema Skin no rashes or lesions noted General Skin Exam: no breakdown Neuro oriented x3, CN's II-XII intact bilaterally, no focal motor deficits and no sensory deficits noted Sensorium / Orientation: awake and alert Speech: speech normal Psych thought process normal and affect normal Assessment & Plan Assessment/Plan (1) Community acquired pneumonia: PLAN: 1. Community-acquired pneumonia-continue present antibiotic coverage, reevaluate the patient tomorrow #2 hypoxia secondary to #1-this is resolved at this time #3 hypothyroidism #4 chronic back pain secondary to degenerative disc disease #5 obstructive sleep apnea-patient uses CPAP at night Charges/Coding Visit Charges Inpatient E&M: 72183 Subs Hosp L2
[2021-02-12] VITALS (8 sets, daily range): BP systolic 121–138; BP diastolic 57–74; PULSE 79–100; RESP 16–18; TEMP 36.6–36.8; O2SAT 92–95
[2021-02-12] MEDS: Acetaminophen 325 MG Tablet 650 MG PO (00:27)
[2021-02-12] MEDS: oxyCODONE 5 MG Tablet PO (02:45)
[2021-02-12] MEDS: Levothyroxine 50 MCG Tablet PO (06:33)
[2021-02-12] MEDS: Ipratropium/Albuterol Sulfate 3 ML AMPUL.NEB INHALATION ×2 (07:02→13:31)
[2021-02-12] MEDS: Enoxaparin 40 MG/0.4 ML Syringe SC (08:25)
[2021-02-12] MEDS: Loratadine 10 MG Tablet PO (08:25)
[2021-02-12] MEDS: Ceftriaxone 1 GM/50 ML BAG IV (09:50)
[2021-02-12] MEDS: 0.9% Saline Lock 10 ML Syringe IV (09:55)
--- NOTE | 2021-02-12 13:51 | CASEMGMT ---
Addendum entered by Merna Callaway 02/12/21 14:08: DARRICK Note DARRICK entered note on the wrong patient and in error. This note does not apply to this patient. Merna Callaway PRESALES SENIOR SPECIALIST [employer] Original Note: DARRICK Note DARRICK Referral Source: [facility] Reason for Referral: Patient reports he was suicidal when in the ED. [facility] and requested call back. DARRICK received call back from [employer]. Merna said that Yasmeen from Crisis completed the assessment. She recommended Alcohol, drug treatment and patient declined. She said that patient can be discharged when medically ready. Plan: Home for patient per [facility] Merna Callaway.
--- NOTE | 2021-02-12 14:46 | PCM.DC ---
Discharge Instructions Diet Discharge Diet: No restrictions Activity Discharge Activity: Return to Normal Activity Weight Bearing Status: Full weight bearing Follow Up Care Test Results: Test results from this visit will be discussed in further detail at your follow-up appointment, if applicable. Discharge Plan Admission Admit Date/Time: 02/10/21 14:13 Primary Reason for Your Visit: pneumonia Attending Provider: David Dubois Primary Care Provider: Rancho Knott Chi Discharge Orders/Prescriptions Prescriptions: New levofloxacin 500 mg tablet 500 mg PO DAILY Qty: 5 RF: 0 Continued levocetirizine 5 mg tablet 5 mg PO DAILY RF: 0 aspirin 325 MG tablet 650 mg PO DAILY PRN PRN (Reason: Headache) RF: 0 ipratropium-albuterol 0.5 mg-3 mg(2.5 mg base)/3 mL solution for nebulization 3 ml inhalation 4X/DAY PRN (Reason: SOB) RF: 0 levothyroxine 50 mcg tablet 50 mcg PO DAILY RF: 0 cholecalciferol (vitamin D3) 25 mcg (1,000 unit) Capsule 25 mcg PO DAILY RF: 0 Referrals / Follow Up: Rancho Knott Chi, MD [Primary Care Provider] - Within 1 Week Disposition Disposition (needs filled in before D/C Order can be placed): Home, Self Care
--- NOTE | 2021-02-16 12:18 | CASEMGMT ---
SHERITA LEMON Discharge Follow Up Phone Call: ISIDORO: Halina Strata:3 Call Date: 02/16/21 Discharge Date: 02/12/2021 Time of Call: 1216 Duration: 3 min Admitting Dx:JOHN MAGALLON CM completed follow up phone call after recent hospitalization. Pt states she is doing pretty good. 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 She has not yet set up her follow up appt with Dr. Knott but states she will do so. Pt denies questions or concerns with her medications and dc instructions.
--- NOTE | 2021-02-16 17:56 | PCM.DC.SUM ---
Providers Date of Admission: 02/10/21 Date of Discharge: 02/12/21 Primary Care Physician: Dr. Rancho Knott MD Reason For Visit: SIRS, PROBABLY PNEUMONIA, HYPOXIA Diagnosis Discharge Diagnosis (1) Community acquired pneumonia: Status: Acute Code(s): J18.9 - Pneumonia, unspecified organism Plan: 1. Community-acquired pneumonia-exact organism unknown #2 hypoxia secondary to #1 #3 hypothyroidism #4 chronic back pain secondary to degenerative disc disease #5 obstructive sleep apnea Medications at Discharge Home Medications levocetirizine 5 mg tablet 5 mg PO DAILY 04/06/20 aspirin 650 mg PO DAILY PRN PRN 07/20/20 cholecalciferol (vitamin D3) 25 mcg PO DAILY 02/10/21 ipratropium-albuterol 3 ml INHALATION 4X/DAY PRN 02/10/21 levothyroxine 50 mcg PO DAILY 02/10/21 levofloxacin 500 mg PO DAILY #5 tab 02/12/21 Hospital Course Operations None Procedures None Summary of Care Provided Minutes Spent on Discharge: 32 Hospital Course: 80-year-old white female was seen in the emergency room at [facility] with a chief complaint of malaise and pain in both lower extremities, work-up in the emergency room revealed the patient to be tachycardic, she had a low-grade temperature and CBC obtained showed a slightly elevated white blood cell count, lactic acid was normal, UA was unremarkable. Patient's chest x-ray showed mild cardiomegaly and increased markings at the lung base 6 suggestive of atelectasis and/or scarring. The patient was admitted to [place] [id number] with concerns of possible community-acquired pneumonia, she was placed on IV antibiotics and aerosol treatments, patient was hypoxic in the emergency room and required 2 L of supplemental oxygen to maintain her pulse ox above 90%, during patient's hospitalization, her oxygen was able to be weaned off. Patient's COVID-19 antigen was negative, her blood culture results were negative after 48 hours. On 02/12/2021, patient was seen and examined: On examination she appeared in good health and spirits, she does not appear to be in any distress. Vital signs as documented. Skin warm and dry and without overt rashes. Neck without JVD, thyroid appears normal, trachea is midline, neck is supple. Lungs clear, normal air movement was noted. Heart exam notable for regular rhythm, normal sounds and absence of murmurs, rubs or gallops. Abdomen unremarkable and without evidence of organomegaly, masses, or abdominal aortic enlargement, bowel sounds are present in all 4 quadrants, no abdominal tenderness was noted. Extremities nonedematous, no cyanosis was noted, no clubbing was noted. Neuro: Cranial nerves II through XII are grossly intact, no focal motor deficits were noted, sensation to light touch and pinprick is intact, motor exam 5/5 throughout. Psych: Patient is alert and oriented x3, she does not appear anxious or depressed, she does not appear agitated. Patient appears stable for discharge home on 02/12/2021. Weight / BMI Weight Weight: 92.487 kg Body Mass Index (BMI) 37.3 ABG / Lab / Microbiology Data Result Diagrams: 02/11/21 05:50 02/11/21 05:50 Microbiology: Microbiology 02/10/21 10:00 Blood Culture (Wb) - Anticubital Left Blood Culture - Final No growth in 5 days. 02/10/21 10:13 Blood Culture (Wb) - Anticubital Right Blood Culture - Final No growth in 5 days. 02/10/21 10:24 Urine Catheter - Catheter Urine Culture - Final Culture exhibits no growth. 02/10/21 Unknown Mucosa - Nose SARS-CoV-2 Antigen (Rapid) - Final D/C Instructions Discharge Diet: No restrictions Weight Bearing Status: Full weight bearing Meaningful Use Info Meaningful Use Diagnoses (Choose all that apply): None applicable Discharge Plan Admission Admit Date/Time: 02/10/21 14:13 Primary Reason for Your Visit: pneumonia Attending Provider: David Dubois Primary Care Provider: Rancho Knott Chi Discharge Orders/Prescriptions Prescriptions: New levofloxacin 500 mg tablet 500 mg PO DAILY Qty: 5 RF: 0 Continued levocetirizine 5 mg tablet 5 mg PO DAILY RF: 0 aspirin 325 MG tablet 650 mg PO DAILY PRN PRN (Reason: Headache) RF: 0 ipratropium-albuterol 0.5 mg-3 mg(2.5 mg base)/3 mL solution for nebulization 3 ml inhalation 4X/DAY PRN (Reason: SOB) RF: 0 levothyroxine 50 mcg tablet 50 mcg PO DAILY RF: 0 cholecalciferol (vitamin D3) 25 mcg (1,000 unit) Capsule 25 mcg PO DAILY RF: 0 Referrals / Follow Up: Rancho Knott Chi, MD [Primary Care Provider] - Within 1 Week Disposition Disposition (needs filled in before D/C Order can be placed): Home, Self Care Charges/Coding Visit Charges Inpatient E&M: 34746 Disch Hosp
== END 2021-02-12 16:15 | disposition home or self-care (01) | DRG 194 ==
LOC: ED 14:08 → MS3 14:22
PROVIDERS: Admitting Provider Hospitalist; Emergency Provider Emergency Medicine; PCP Family Medicine Geriatric Medicine; Visit Provider Internal Medicine
DX: J18.9 Pneumonia, unspecified organism (principal); J44.0 Chronic obstructive pulmonary disease with (acute) lower respiratory infection; R09.02 Hypoxemia; Z20.822 Contact with and (suspected) exposure to COVID-19; E03.9 Hypothyroidism, unspecified; M51.36 Other intervertebral disc degeneration, lumbar region; G89.29 Other chronic pain; G47.33 Obstructive sleep apnea (adult) (pediatric); Z79.82 Long term (current) use of aspirin; Z79.890 Hormone replacement therapy; Z79.899 Other long term (current) drug therapy; Z87.891 Personal history of nicotine dependence
CPT/HCPCS: 36415; 71045; 71046; 80048; 80053; 81001; 83605; 85025; 85610; 85730; 87040; 87086; 87426; 93005; 94640; 97110; 97162; 97166; 97530; 99251; 99285; J7030; J7050; P9612; A4216; G0463; J2405

== ENCOUNTER → 2021-03-23 12:20 | Outpatient (CLI) | payer MEDICARE, SELFPAY ==
[2021-03-20 10:33] VITALS: BMI 36.1
== END ==
PROVIDERS: PCP Family Medicine Geriatric Medicine; Referring Provider Family Medicine Geriatric Medicine; Visit Provider Family Medicine Geriatric Medicine
DX: R68.83 Chills (without fever) (principal)
CPT/HCPCS: 87426; 87804; 87807; C9803

== ENCOUNTER 2021-03-25 14:20 | Outpatient (CLI) | payer MEDICARE, SELFPAY ==
[2021-03-25 08:38] VITALS: BMI 36.1
[2021-03-25 14:37] VITALS: BP 122/76; PULSE 107; RESP 18; TEMP 36.5; O2SAT 92; BMI 37.8
[2021-03-25] MEDS: 0.9% Saline Lock 10 ML Syringe IV (14:57)
[2021-03-25 15:26] VITALS: BP 138/93; PULSE 89; RESP 16; TEMP 36.7; O2SAT 93
[2021-03-25 15:56] VITALS: BP 146/89; PULSE 83; RESP 18; TEMP 36.7; O2SAT 93
[2021-03-25 16:26] VITALS: BP 146/86; PULSE 83; RESP 18; TEMP 36.6; O2SAT 93
== END 2021-03-25 16:28 | disposition home or self-care (01) ==
LOC: ICUOUT 14:22 → ICU 14:23
PROVIDERS: PCP Family Medicine Geriatric Medicine; Referring Provider Nurse Practitioner Acute Care; Visit Provider Nurse Practitioner Acute Care
DX: U07.1 COVID-19 (principal); Z23 Encounter for immunization
CPT/HCPCS: J7050; M0243; A4216; Q0244

== ENCOUNTER → 2021-04-20 15:13 | Outpatient (CLI) | payer MEDICARE, SELFPAY ==
[2021-04-20 16:28] LABS: Absolute Lymphocyte Count 1.69 X10^3/uL (0.83-4.51); Absolute Neutrophil Count 3.9 X10^3/uL (2.0-7.7); Basophil# 0.03 X10^3/uL; Basophil% 0.5 % (0-1); Eosinophils% 1.6 % (0-5); Hemoglobin 12.7 g/dL (12.0-15.0); Lymphocyte # 1.69 X10^3/ul (0.83-4.51); Lymphocyte % 27.2 % (19-41); Mean Corp Hgb Conc 31.8 g/dL (32-36); Mean Corpuscular Hgb 30.3 pg (27.0-32.0); Mean Corpuscular Volume 95.5 fL (81-99); Mean Platelet Vol. 9.8 fl (6.2-12.0); Monocyte# 0.45 X10^3/uL; Monocyte% 7.2 % (0-10); NRBC Flagged by Analyzer 0 % (0-5); Neutrophil # 3.88 X10^3/uL (2.7-7.7); Neutrophil % 62.4 % (47-70); Platelet Count 297 K/mm3 (150-450); RBC Distribution Width CV 14.2 % (11.6-14.6); RBC Distribution Width SD 49.8 fl (35.1-43.9); Red Blood Count 4.19 M/mm3 (4.2-5.4); White Blood Count 6.2 K/mm3 (4.4-11.0)
[2021-04-20 16:40] LABS: Vitamin D,25 Hydroxy 23.8 ng/mL
[2021-04-20 16:55] LABS: ALB/GLOB Ratio 0.8 RATIO (0.9-2.4); AST(SGOT) 19 U/L (15-37); Alanine Aminotransfer ALT/SGPT 22 U/L (13-56); Albumin, Serum 3.3 g/dL (3.2-5.0); Alkaline Phosphatase 63 U/L (45-117); Anion Gap 3 (5-15); BUN 23 mg/dL (7-18); Calcium,Total 9.1 mg/dL (8.5-10.1); Chloride 105 mmol/L (98-107); Cholesterol 235 mg/dL (200); Creatinine, Serum 0.85 mg/dL (0.55-1.02); EST Glomerular Filtration Rate 69 mL/min (>60); Est Glom Filt Rate - Afr Amer 83 mL/min (>60); Globulin 4.1 g/dL (2.2-4.2); Glucose 79 mg/dL (74-106); High Density Lipoprotein 53 mg/dL; Potassium 3.8 mmol/L (3.5-5.1); Protein, Total 7.4 g/dL (6.4-8.2); Sodium Level 139 mmol/L (136-145); Thyroid Stim Hormone (TSH) 2.77 uIU/mL (0.358-3.74); Triglycerides 118 mg/dL; Very Low Density Lipoprotein 24 mg/dL (5-40)
== END ==
PROVIDERS: PCP Family Medicine Geriatric Medicine; Visit Provider Family Medicine Geriatric Medicine
DX: E55.9 Vitamin D deficiency, unspecified (principal); E78.5 Hyperlipidemia, unspecified; R53.83 Other fatigue
CPT/HCPCS: 36415; 80053; 80061; 82306; 84443; 85025

== ENCOUNTER 2021-04-26 15:16 | Emergency (ER) | payer MEDICARE, SELFPAY ==
[2021-04-26 15:16] VITALS: BP 168/91; PULSE 106; RESP 16; TEMP 36; O2SAT 98; BMI 36.1
[2021-04-26 16:08] VITALS: BP 162/84; PULSE 98; RESP 20; O2SAT 95
--- NOTE | 2021-04-26 16:18 | EKG12_ITS ---
Test Reason : CHEST PRESSURE Blood Pressure : / mmHG Vent. Rate : 101 BPM Atrial Rate : 101 BPM P-R Int : 130 ms QRS Dur : 070 ms QT Int : 328 ms P-R-T Axes : 024 029 019 degrees QTc Int : 425 ms Sinus tachycardia Otherwise normal ECG Confirmed by WHITNEY MACHUCA, SHRADDHA ([id number]), news editor MAR CANTU ([id number]) on 04/27/2021 1:28:05 PM Referred By: MR Confirmed By:SHRADDHA OLSON MD
[2021-04-26 16:37] VITALS: O2SAT 97
--- NOTE | 2021-04-26 17:07 | RAD_ITS ---
HISTORY: chest pain EXAMINATION/TECHNIQUE: XR Chest 2 Views: 2 views COMPARISON: 02/11/21 FINDINGS: LINES/DEVICES: None. LUNGS: Decreased bibasilar subsegmental atelectasis, no pulmonary consolidation, mass, or edema. No pleural effusion or pneumothorax. MEDIASTINUM AND CARDIOVASCULAR STRUCTURES: Cardiac silhouette not enlarged. Central airways and mediastinal contour are unremarkable. BONES AND SOFT TISSUES: No acute bony abnormalities. RAD/Chest PA and Lateral IMPRESSION: No radiographic evidence of acute cardiopulmonary disease. at 1724 Reported and signed by: Yasmani Zarco MD Electronically Signed: Yasmani Zarco MD at 17:22 EDT Tel , Service support ,
[2021-04-26 17:17] LABS: Absolute Lymphocyte Count 1.87 X10^3/uL (0.83-4.51); Absolute Neutrophil Count 4.7 X10^3/uL (2.0-7.7); Basophil# 0.05 X10^3/uL; Basophil% 0.7 % (0-1); Eosinophil# 0.12 X10^3/uL; Eosinophils% 1.6 % (0-5); Hematocrit 41.6 % (37-47); Hemoglobin 13.3 g/dL (12.0-15.0); Lymphocyte # 1.87 X10^3/ul (0.83-4.51); Lymphocyte % 25.4 % (19-41); Mean Corpuscular Hgb 30.7 pg (27.0-32.0); Mean Corpuscular Volume 96.1 fL (81-99); Mean Platelet Vol. 10.2 fl (6.2-12.0); Monocyte% 8.2 % (0-10); NRBC Flagged by Analyzer 0 % (0-5); Neutrophil # 4.68 X10^3/uL (2.7-7.7); Neutrophil % 63.6 % (47-70); Platelet Count 270 K/mm3 (150-450); RBC Distribution Width CV 14.2 % (11.6-14.6); RBC Distribution Width SD 50.4 fl (35.1-43.9); Red Blood Count 4.33 M/mm3 (4.2-5.4); White Blood Count 7.4 K/mm3 (4.4-11.0)
[2021-04-26 17:30] LABS: D-Dimer Quantitative (DVT/PE) 2.56 FEU/ug/m (0.27-0.49)
[2021-04-26 17:31] LABS: Anion Gap 6 (5-15); BUN 20 mg/dL (7-18); BUN/Creat Ratio 19.4 RATIO (10-20); Calcium,Total 9.4 mg/dL (8.5-10.1); Chloride 106 mmol/L (98-107); Creatinine, Serum 1.03 mg/dL (0.55-1.02); EST Glomerular Filtration Rate 55 mL/min (>60); Est Glom Filt Rate - Afr Amer 67 mL/min (>60); Estimated Creatinine Clearance 37.24 ml/min; Glucose 114 mg/dL (74-106); Potassium 3.5 mmol/L (3.5-5.1); Sodium Level 140 mmol/L (136-145); Troponin-I HS 8 pg/mL (3.0-54.0)
--- NOTE | 2021-04-26 17:32 | CT_ITS ---
HISTORY: Chest pain EXAMINATION: CTA Chest WO/W Contrast Injection TECHNIQUE: Helically acquired images were obtained of the chest following IV contrast as per pulmonary angiogram protocol with 3D reconstructions. A radiation dose optimization technique was used for this scan. IV Contrast dosage and agent: 100mL [id number] COMPARISON: 06/28/15 FINDINGS: LUNGS, PLEURA AND LARGE AIRWAYS: Mild interval increase in bilateral reticulonodular infiltrates predominantly in the lower lobes with scattered bronchiectasis. No consolidations or pleural effusions THYROID: No thyroid lesions. PULMONARY ARTERIES: Normal in caliber. No pulmonary embolism. AORTA AND GREAT VESSELS: No aneurysm or dissection. HEART AND PERICARDIUM: Heart size is normal. No pericardial effusion. RV to LV ratio measures less than 1. MEDIASTINUM AND MELLO: No mediastinal or hilar adenopathy. Esophagus is unremarkable. Stable small hiatal hernia. UPPER ABDOMEN: Cholecystectomy. BONES: No acute or aggressive abnormality. CT/CTA Chest W/WO Contrast IMPRESSION: Negative CTA Chest. No acute consolidative process. 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 Individualized dose optimization techniques were used for this CT. at 1833 Reported and signed by: Yasmani Zarco MD Electronically Signed: Yasmani Zarco MD at 18:32 EDT Tel , Service support ,
--- NOTE | 2021-04-26 18:14 | EDS_ITS ---
HPI History of Present Illness Chief Complaint: Palpitations Narrative Narrative: Patient presenting for evaluation secondary to chest pain. Patient states that since yesterday she has been dealing with chest pain. She describes it as a substernal burning type sensation. Patient states that its been continuous since last night, has been associated with some mild lightheadedness she denies any shortness of breath she denies any exertional component to this. Patient states that she has no underlying cardiovascular history. She reports that she thought that going to sleep would help it, when she woke up she was still having it and she now is presenting to the emergency department. Patient states that she has never had a cardiac stress test. She denies recent illness such as fever cough nausea vomiting or diarrhea. Patient does state that she had a coronavirus infection early last month, but felt that she had resolution of that. Review of systems otherwise negative. [facility] Medical History Anxiety CPAP (continuous positive airway pressure) dependence GERD (gastroesophageal reflux disease) History of arthritis History of asthma History of COPD History of Right Foot Fracture Hypothyroidism Migraines Sleep apnea Home Medications levocetirizine 5 mg tablet 5 mg PO DAILY 04/06/20 [History Last Taken 03/25/21] aspirin 650 mg PO DAILY PRN PRN 07/20/20 [History Last Taken 02/09/21] cholecalciferol (vitamin D3) 25 mcg PO DAILY 02/10/21 [History Last Taken 03/25/21] ipratropium-albuterol 3 ml INHALATION 4X/DAY PRN 02/10/21 [History Last Taken 03/24/21] levothyroxine 50 mcg PO DAILY 02/10/21 [History Last Taken 03/25/21] vitamin B complex 1 tab PO DAILY 03/25/21 [History Last Taken 03/25/21] Allergy/AdvReac Type Severity Reaction Status Date / Time Penicillins Allergy Severe facial Verified 04/26/21 15:19 swelling hydrocodone [From Vicodin] AdvReac Nausea Verified 04/26/21 15:19 Surgical History H/O cataract removal with insertion of prosthetic lens History of appendectomy History of cholecystectomy History of foot surgery Hx of tubal ligation S/P foot surgery, right Social History Smoking Status: Former smoker ROS ROS ED Constitutional Constitutional ED: Denies fever(s) Eyes Eyes: Denies change in vision ENT ENT ED: Denies rhinorrhea or sore throat Cardiovascular Cardiovascular: Reports as per HPI and chest pain Respiratory/Chest Respiratory/Chest: Denies cough, dyspnea or dyspnea on exertion Gastrointestinal Gastrointestinal: Denies abdominal pain, nausea or vomiting Genitourinary Genitourinary ED: Denies dysuria Musculoskeletal Musculoskeletal: Denies myalgias or neck pain Integumentary Denies rash Neurologic Neurologic: Denies headache(s), paresthesias or weakness Psychiatric Psychiatric: Denies depression Endocrine Endocrinology: Denies polydipsia or polyuria Hematologic/Lymphatic Hematologic/Lymphatic: Denies easy bleeding or easy bruising Allergic/Immunologic Allergic/Immunologic ED: Denies urticaria EXAM Physical Exam Const Vital Signs: 04/26/21 15:16 04/26/21 16:08 04/26/21 16:10 Temperature 96.8 F L Temperature Source Temporal Pulse Rate 106 H 98 Respiratory Rate 16 20 H Respiratory Effort Normal Respiratory Pattern Normal Blood Pressure 168/91 H 162/84 H Blood Pressure Mean 116 110 Pulse Ox 98 95 Oxygen Delivery Method Room Air Room Air 04/26/21 16:37 Temperature Temperature Source Pulse Rate Respiratory Rate Respiratory Effort Respiratory Pattern Blood Pressure Blood Pressure Mean Pulse Ox 97 Oxygen Delivery Method Room Air Positive well nourished and well developed Constitutional Narrative: Heavyset female no acute distress General Appearance ED: well developed and NAD HEENT Reports moist mucous membranes normocephalic and atraumatic Eyes EOMs intact bilaterally Neck no lymphadenopathy, supple and no JVD Chest Wall inspection of chest normal and palpation of chest normal Chest Narrative: No evidence of vesicular rash Resp normal respiratory effort and clear to auscultation bilaterally Auscultation: Negative for rales, rhonchi or wheezes Cardio regular rate, regular rhythm, S1 normal heart sound, S2 normal heart sound and no murmurs Peripheral Pulses: radial pulses present and posterior tibial pulses present GI normal to inspection, nondistended, normoactive bowel sounds, soft to palpation and non-tender Extremity normal to inspection Extremity Narrative: Calves are supple no palpable cord General Extremety ED: Negative for edema or tenderness General Extremity: Negative for edema Neuro oriented x3 and no sensory deficits noted Sensorium / Orientation: awake and alert Psych mental status grossly normal Skin no rashes or lesions noted Heart Score History: Slightly/Non-Suspicious ECG: Normal Age: >/= 65 years Risk Factors: 1 or 2 Risk Factors Troponin: </= Normal Limit Score: 3 MDM MDM MDM Narrative Medical decision making narrative: Patient presenting secondary to chest pain. Patient stated while she was having her chest pain she noted that her heart rate was 100 220. Patient did also have a recent coronavirus infection. EKG was obtained was found to be unremarkable. Chest x-ray by my personal view as well as radiology found to be negative. CBC shows no leukocytosis or shift, chemistry was within normal limits. Initial high-sensitivity troponin was found to be negative. D-dimer unfortunately found to be elevated. CT angiogram of the chest was ordered. This was found to be negative per radiology. Repeat high-sensitivity troponin was found to be unremarkable. Patient's heart score is a maximum of 3, she had 2 - high-sensitivity troponin no evidence of acute EKG changes I do not think that this is acute coronary syndrome. Likewise she does not have a PE or any changes on her CAT scan making her relatively low risk as far as chest pain is concerned. Patient was given reassurance, believe that she can safely be discharged. Patient was educated on signs and symptoms which to return. Patient was discharged with outpatient follow-up with her primary care. Lab Data Labs: Laboratory Results - last 24 hr 04/26/21 04/26/21 04/26/21 15:30 15:30 15:30 WBC 7.4 RBC 4.33 Hgb 13.3 Hct 41.6 MCV 96.1 MCH 30.7 MCHC 32.0 RDW Std Deviation 50.4 H RDW Coeff of Stevie 14.2 Plt Count 270 MPV 10.2 Immature Gran % (Auto) 0.500 Neut % (Auto) 63.6 Lymph % (Auto) 25.4 [place] % (Auto) 8.2 Eos % (Auto) 1.6 Baso % (Auto) 0.7 Absolute Neuts (auto) 4.7 Absolute Lymphs (auto) 1.87 Nucleated RBC % 0 D-Dimer Quant (PE/DVT) 2.56 H* Sodium 140 Potassium 3.5 Chloride 106 Carbon Dioxide 28.0 Anion Gap 6 BUN 20 H Creatinine 1.03 H Estim Creat Clear Calc 37.24 Est GFR (MDRD) Af Amer 67 Est GFR (MDRD) Non-Af 55 L BUN/Creatinine Ratio 19.4 Glucose 114 H Calcium 9.4 Troponin I High Sens 8 04/26/21 18:13 WBC RBC Hgb Hct MCV MCH MCHC RDW Std Deviation RDW Coeff of Stevie Plt Count MPV Immature Gran % (Auto) Neut % (Auto) Lymph % (Auto) [place] % (Auto) Eos % (Auto) Baso % (Auto) Absolute Neuts (auto) Absolute Lymphs (auto) Nucleated RBC % D-Dimer Quant (PE/DVT) Sodium Potassium Chloride Carbon Dioxide Anion Gap BUN Creatinine Estim Creat Clear Calc Est GFR (MDRD) Af Amer Est GFR (MDRD) Non-Af BUN/Creatinine Ratio Glucose Calcium Troponin I High Sens 8 Radiography Diagnostic Testing: Radiology Impression Chest X-Ray 04/26/21 17:07 IMPRESSION: No radiographic evidence of acute cardiopulmonary disease. at 1724 Reported and signed by: Yasmani Zarco MD Electronically Signed: Yasmani Zarco MD at 17:22 EDT Tel , Service support , Chest CTA 04/26/21 17:32 IMPRESSION: Negative CTA Chest. No acute consolidative process. 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 Individualized dose optimization techniques were used for this CT. at 1833 Reported and signed by: Yasmani Zarco MD Electronically Signed: Yasmani Zarco MD at 18:32 EDT Tel , Service support , EKG Initial EKG: Attestation: I personally reviewed and interpreted this EKG as follows: (Sinus tachycardia with a rate of [address] segments normal T waves normal GA and QTc intervals no evidence acute ischemia or arrhythmia) Discharge Plan Triage Chief Complaint: Palpitations ED Provider: Mich Kee Dx/Rx/DC Orders Clinical Impression: Chest pain Instructions: ED Chest Pain, Uncertain Cause Prescriptions: No Action levocetirizine 5 mg tablet 5 mg PO DAILY RF: 0 aspirin 325 MG tablet 650 mg PO DAILY PRN PRN (Reason: Headache) RF: 0 ipratropium-albuterol 0.5 mg-3 mg(2.5 mg base)/3 mL solution for nebulization 3 ml inhalation 4X/DAY PRN (Reason: SOB) RF: 0 levothyroxine 50 mcg tablet 50 mcg PO DAILY RF: 0 cholecalciferol (vitamin D3) 25 mcg (1,000 unit) Capsule 25 mcg PO DAILY RF: 0 vitamin B complex Tablet 1 tab PO DAILY RF: 0 Primary Care Provider: Rancho Knott Chi Referrals: Rancho Knott Chi, MD [Primary Care Provider] - 3-5 Days Disposition Disposition: Home, Self Care
[2021-04-26 18:44] LABS: Troponin-I HS 8 pg/mL (3.0-54.0)
== END 2021-04-26 19:31 | disposition home or self-care (01) ==
PROVIDERS: Emergency Provider Emergency Medicine; PCP Family Medicine Geriatric Medicine
DX: R07.9 Chest pain, unspecified (principal); R00.2 Palpitations; E03.9 Hypothyroidism, unspecified; J44.9 Chronic obstructive pulmonary disease, unspecified; Z87.891 Personal history of nicotine dependence; Z79.899 Other long term (current) drug therapy
CPT/HCPCS: 71046; 71275; 80048; 84484; 85025; 85379; 93005; 99284; Q9967; A4216

== ENCOUNTER → 2021-05-19 06:03 | Outpatient (CLI) | payer MEDICARE, SELFPAY ==
[2021-05-19 19:04] LABS: M R Staph aureus DNA By PCR Negative (Negative); Probe Check PASS; Specimen Processing Control PASS; Staph aureus DNA By PCR NEGATIVE (Negative)
--- NOTE | 2021-05-20 15:31 | STRESSREP ---
Stress Test Report Date: 05/19/2021 Procedure: Pharmacologic stress nuclear imaging study Indications: Chest pain Consent: Per the patient Procedure: The patient underwent pharmacologic (Regadenoson) evaluation with a peak heart rate of 102 beats per minute (71%predicted maximal heart rate) and a peak blood pressure of 150/76 mmHg. The baseline ECG demonstrated normal sinus rhythm. EKG during lexiscan infusion revealed no significant ischemic changes. EKG post infusion revealed no significant ischemic changes [There were no cardiac dysrhythmias pretest, during pharmacologic infusion, or recovery]. [There was no complaint of chest discomfort during pharmacologic infusion or recovery]. The examination was discontinued secondary to completion of protocol. Impression: 1. Lexiscan stress test test is negative for Lexiscan infusion induced EKG changes of ischemia. 2. Lexiscan stress test test is negative for Lexiscan infusion induced chest pain. 3. Results of the nuclear portion of the test is as below Myocardial perfusion imaging study: Technique: The patient was injected with 14.5 millicuries of technetium 99m Cardiolite and subsequently rest SPECT Cardiolite nuclear imaging was obtained in the horizontal long, vertical long, and short axis views. The patient underwent pharmacologic [Regadenoson 0.4mg] evaluation. Please see above for details. The patient was injected with 44.8 millicuries of technetium 99m Cardiolite and subsequently stress SPECT Cardiolite nuclear imaging was obtained in the horizontal long, vertical long, and short axis views. A gated Cardiolite study at peak stress was obtained. Interpretation: Rest and stress SPECT Cardiolite nuclear imaging status post realignment, normalization, and attenuation correction demonstrate overall normal myocardial radioisotope uptake. Gated images reveal no significant regional wall motion abnormalities. The reported LVEF is greater than 70%. Impression: 1. There is no evidence of significant ischemia or infarction. 2. Estimated ejection fraction is greater than 70%. This note was generated with [employer] software. It may contain incorrect words, spelling, and punctuation that were not noted in checking the note before signing.
== END ==
PROVIDERS: PCP Family Medicine Geriatric Medicine; Referring Provider Family Medicine Geriatric Medicine; Visit Provider Family Medicine Geriatric Medicine
DX: R07.9 Chest pain, unspecified (principal); L03.119 Cellulitis of unspecified part of limb; B95.62 Methicillin resistant Staphylococcus aureus infection as the cause of diseases classified elsewhere
CPT/HCPCS: 78452; 87070; 87205; 87640; 93017; A9500; A4216; J2785

== ENCOUNTER → 2021-06-28 08:54 | Outpatient (CLI) | payer MEDICARE, SELFPAY | PROVIDERS: PCP Family Medicine Geriatric Medicine; Referring Provider Family Medicine Geriatric Medicine; Visit Provider Family Medicine Geriatric Medicine | DX: R06.89 Other abnormalities of breathing (principal) | CPT/HCPCS: 87632; 87635; C9803; U0005; U0003 ==

== ENCOUNTER → 2021-07-20 14:09 | Outpatient (CLI) | payer MEDICARE, SELFPAY ==
[2021-07-20 17:12] LABS: Absolute Lymphocyte Count 2.04 X10^3/uL (0.83-4.51); Absolute Neutrophil Count 5.1 X10^3/uL (2.0-7.7); Basophil# 0.05 X10^3/uL; Basophil% 0.6 % (0-1); Eosinophil# 0.18 X10^3/uL; Eosinophils% 2.2 % (0-5); Hematocrit 41.9 % (37-47); Hemoglobin 13.5 g/dL (12.0-15.0); Lymphocyte # 2.04 X10^3/ul (0.83-4.51); Lymphocyte % 25.2 % (19-41); Mean Corp Hgb Conc 32.2 g/dL (32-36); Mean Corpuscular Hgb 30.5 pg (27.0-32.0); Mean Corpuscular Volume 94.6 fL (81-99); Mean Platelet Vol. 10.5 fl (6.2-12.0); Monocyte% 8.7 % (0-10); NRBC Flagged by Analyzer 0 % (0-5); Neutrophil # 5.09 X10^3/uL (2.7-7.7); Neutrophil % 62.9 % (47-70); Platelet Count 259 K/mm3 (150-450); RBC Distribution Width CV 13.4 % (11.6-14.6); RBC Distribution Width SD 46.4 fl (35.1-43.9); Red Blood Count 4.43 M/mm3 (4.2-5.4); White Blood Count 8.1 K/mm3 (4.4-11.0)
[2021-07-20 17:31] LABS: Vitamin D,25 Hydroxy 24.5 ng/mL
[2021-07-20 17:37] LABS: ALB/GLOB Ratio 0.8 RATIO (0.9-2.4); AST(SGOT) 18 U/L (15-37); Alanine Aminotransfer ALT/SGPT 28 U/L (13-56); Albumin, Serum 3.1 g/dL (3.2-5.0); Alkaline Phosphatase 64 U/L (45-117); Anion Gap 7 (5-15); BUN 32 mg/dL (7-18); BUN/Creat Ratio 38.6 RATIO (10-20); Chloride 106 mmol/L (98-107); Cholesterol 199 mg/dL (200); Creatinine, Serum 0.83 mg/dL (0.55-1.02); EST Glomerular Filtration Rate 71 mL/min (>60); Est Glom Filt Rate - Afr Amer 86 mL/min (>60); Globulin 4.1 g/dL (2.2-4.2); Glucose 90 mg/dL (74-106); High Density Lipoprotein 46 mg/dL; Potassium 4.1 mmol/L (3.5-5.1); Protein, Total 7.2 g/dL (6.4-8.2); Sodium Level 141 mmol/L (136-145); Thyroid Stim Hormone (TSH) 2.09 uIU/mL (0.358-3.74); Triglycerides 316 mg/dL; Very Low Density Lipoprotein 63 mg/dL (5-40)
== END ==
PROVIDERS: PCP Family Medicine Geriatric Medicine; Visit Provider Family Medicine Geriatric Medicine
DX: E55.9 Vitamin D deficiency, unspecified (principal); E78.5 Hyperlipidemia, unspecified; R53.83 Other fatigue
CPT/HCPCS: 36415; 80053; 80061; 82306; 84443; 85025

== ENCOUNTER 2021-09-06 16:34 | Outpatient (CLI) | payer MEDICARE, SELFPAY | END 2021-09-06 23:59 | disposition short-term general hospital (02) | PROVIDERS: PCP Family Medicine Geriatric Medicine; Visit Provider Family Medicine Geriatric Medicine | DX: T14.8XXA Other injury of unspecified body region, initial encounter (principal); B95.62 Methicillin resistant Staphylococcus aureus infection as the cause of diseases classified elsewhere ==

== ENCOUNTER 2021-09-12 15:32 | Outpatient (CLI) | payer MEDICARE, SELFPAY ==
--- NOTE | 2021-09-12 15:39 | CT_ITS ---
STUDY: CT LOWER LEFT EXTREMITY REASON FOR EXAM: Female, 80 years old. Head to the lower leg on plastic container one week ago, contusion to mid shaft TECHNIQUE: Transaxial CT imaging of the lower extremity was performed. Sagittal and coronal images were reconstructed. COMPARISON: None. FINDINGS: Normal subcutis adipose space. No space-occupying mass. No drainable collection. Normal quadriceps extensor mechanism with a normal rectus femoris, vastus medialis, intermedius and lateralis muscles. Normal visualized femur. Normal tibia and fibula. Calcaneal spurring. CT/Extremity Lower without Contra IMPRESSION: No acute pathology of the visualized left lower leg. Electronically Signed: Albert Martin DO at 16:19 EST Reading Location ID and State: [facility] / [place] Tel [phone], Service support ,
== END 2021-09-12 23:59 | disposition short-term general hospital (02) ==
LOC: CT 15:35
PROVIDERS: PCP Family Medicine Geriatric Medicine; Referring Provider Family Medicine Geriatric Medicine; Visit Provider Family Medicine Geriatric Medicine
DX: Z03.89 Encounter for observation for other suspected diseases and conditions ruled out (principal)
CPT/HCPCS: 73700

== ENCOUNTER 2021-10-19 15:07 | Outpatient (CLI) | payer MEDICARE, SELFPAY ==
[2021-10-19 16:17] LABS: Absolute Lymphocyte Count 2.08 X10^3/uL (0.83-4.51); Absolute Neutrophil Count 5.7 X10^3/uL (2.0-7.7); Basophil# 0.07 X10^3/uL; Basophil% 0.8 % (0-1); Eosinophil# 0.18 X10^3/uL; Eosinophils% 2.1 % (0-5); Hematocrit 42.6 % (37-47); Hemoglobin 13.7 g/dL (12.0-15.0); Lymphocyte # 2.08 X10^3/ul (0.83-4.51); Lymphocyte % 24.1 % (19-41); Mean Corp Hgb Conc 32.2 g/dL (32-36); Mean Corpuscular Hgb 30.6 pg (27.0-32.0); Mean Corpuscular Volume 95.3 fL (81-99); Mean Platelet Vol. 10.4 fl (6.2-12.0); Monocyte# 0.59 X10^3/uL; Monocyte% 6.8 % (0-10); NRBC Flagged by Analyzer 0 % (0-5); Neutrophil # 5.66 X10^3/uL (2.7-7.7); Neutrophil % 65.7 % (47-70); Platelet Count 259 K/mm3 (150-450); RBC Distribution Width CV 12.9 % (11.6-14.6); RBC Distribution Width SD 45.4 fl (35.1-43.9); Red Blood Count 4.47 M/mm3 (4.2-5.4); White Blood Count 8.6 K/mm3 (4.4-11.0)
[2021-10-19 16:42] LABS: ALB/GLOB Ratio 0.9 RATIO (0.9-2.4); AST(SGOT) 21 U/L (15-37); Alanine Aminotransfer ALT/SGPT 26 U/L (13-56); Albumin, Serum 3.5 g/dL (3.2-5.0); Alkaline Phosphatase 61 U/L (45-117); Anion Gap 6 (5-15); BUN 26 mg/dL (7-18); BUN/Creat Ratio 26.6 RATIO (10-20); Calcium,Total 9.3 mg/dL (8.5-10.1); Chloride 107 mmol/L (98-107); Cholesterol 230 mg/dL (200); Creatinine, Serum 0.98 mg/dL (0.55-1.02); EST Glomerular Filtration Rate 58 mL/min (>60); Est Glom Filt Rate - Afr Amer 71 mL/min (>60); Globulin 3.9 g/dL (2.2-4.2); Glucose 87 mg/dL (74-106); High Density Lipoprotein 51 mg/dL; Potassium 4.2 mmol/L (3.5-5.1); Protein, Total 7.4 g/dL (6.4-8.2); Sodium Level 140 mmol/L (136-145); Thyroid Stim Hormone (TSH) 2.52 uIU/mL (0.358-3.74); Triglycerides 219 mg/dL; Very Low Density Lipoprotein 44 mg/dL (5-40)
[2021-10-19 17:00] LABS: Vitamin D,25 Hydroxy 14.4 ng/mL
== END 2021-10-19 23:59 | disposition home or self-care (01) ==
LOC: POLAB3 15:08
PROVIDERS: PCP Family Medicine Geriatric Medicine; Visit Provider Family Medicine Geriatric Medicine
DX: E55.9 Vitamin D deficiency, unspecified (principal); E78.5 Hyperlipidemia, unspecified; I10 Essential (primary) hypertension
CPT/HCPCS: 36415; 80053; 80061; 82306; 84443; 85025

== ENCOUNTER 2021-10-19 15:40 | Outpatient (CLI) | payer MEDICARE, SELFPAY ==
--- NOTE | 2021-10-19 15:42 | VDLE_ITS ---
Reason For Study: Edema RIGHT LEFT GSV is normal. CFV is compressible, spontaneous, phasic, CFV is compressible, spontaneous, phasic, competent, and demonstrates normal competent and demonstrates normal augmentation. augmentation. FV is compressible, spontaneous, phasic, competent and demonstrates normal augmentation. POP V is compressible, spontaneous, phasic, competent and demonstrates normal augmentation. T/P Trunk is compressible. PTV is compressible. RT PerV is compressible. Rt Soleus V is dilated and non compressible consistent with acute DVT. Procedure This is a venous duplex using B-mode, color flow and spectral Doppler. Exam performed in department. A preliminary report was called and/or faxed to Dr. Nikos Young. VL/Venous Duplex US, Unilateral Interpretation Summary Acute deep venous thrombosis right soleus vein Patent compressible right great saphenous vein Normal flow patterns left common femoral vein Ordering Physician: Rancho Knott Chi Referring Physician: Rancho Knott Chi Performed By: Maddy Singh, KRANTHI, RVT
== END 2021-10-19 23:59 | disposition home or self-care (01) ==
LOC: CVS 15:41
PROVIDERS: PCP Family Medicine Geriatric Medicine; Referring Provider Family Medicine Geriatric Medicine; Visit Provider Family Medicine Geriatric Medicine
DX: R60.0 Localized edema (principal); E55.9 Vitamin D deficiency, unspecified; E78.5 Hyperlipidemia, unspecified; I10 Essential (primary) hypertension
CPT/HCPCS: 36415; 80053; 80061; 82306; 84443; 85025; 93971

== ENCOUNTER 2021-10-20 11:39 | Outpatient (CLI) | payer MEDICARE, SELFPAY | END 2021-10-20 23:59 | disposition home or self-care (01) | PROVIDERS: PCP Family Medicine Geriatric Medicine; Visit Provider Family Medicine Geriatric Medicine | DX: I82.401 Acute embolism and thrombosis of unspecified deep veins of right lower extremity (principal) ==

== ENCOUNTER 2021-11-11 10:06 | Outpatient (CLI) | payer MEDICARE, SELFPAY ==
[2021-11-11 12:45] LABS: M R Staph aureus DNA By PCR Negative (Negative); Probe Check PASS; Specimen Processing Control PASS; Staph aureus DNA By PCR NEGATIVE (Negative)
== END 2021-11-11 23:59 | disposition home or self-care (01) ==
LOC: LABSPEC 10:07
PROVIDERS: PCP Family Medicine Geriatric Medicine; Visit Provider Family Medicine Geriatric Medicine
DX: L03.90 Cellulitis, unspecified (principal); B95.2 Enterococcus as the cause of diseases classified elsewhere
CPT/HCPCS: 87070; 87205; 87640

== ENCOUNTER → 2022-01-03 | Outpatient (CLI) | payer MEDICARE, SELFPAY ==
--- NOTE | 2022-01-03 07:56 | ECHOD_ITS ---
Reason For Study: ARRYTHMIA Procedure This was a 2D Doppler, Color Flow transthoracic echocardiogram. The study was technically difficult. Exam performed in department. Left Ventricle Normal LV size. Mild concentric left ventricular hypertrophy. Left ventricular systolic function is normal. The estimated ejection fraction is 65 %. Stage 1 diastolic dysfunction. No regional wall motion abnormalities noted. Right Ventricle Normal RV size. Normal systolic function. Atria Normal left atrium. Normal right atrium. Mitral Valve Normal mitral valve. Tricuspid Valve Normal tricuspid valve. Aortic Valve Normal aortic valve. Pulmonic Valve Normal pulmonic valve. Great Vessels Normal aortic root. The pulmonary artery is normal size. Normal inferior vena cava. Pericardium/Pleural No pericardial effusion. Medication 22 gauge I.V. with prn adaptor inserted into right arm. Diluted definity 2ml given slow IV push to enhance endocardial definition. MMode/2D Measurements & Calculations LVIDd: 2.4 cm IVSd: 1.4 cm Ao root diam: 2.7 cm LVIDs: 1.4 cm LVPWd: 1.2 cm FS: 40.9 % LAV(MOD-sp4): 35.5 ml LVAd ap4: 33.4 cm2 SV(MOD-sp4): 58.1 ml LVLd ap4: 9.2 cm EDV(MOD-sp4): 98.1 ml EDV(sp4-el): 103.4 ml LVAs ap4: 19.2 cm2 LVLs ap4: 7.8 cm ESV(MOD-sp4): 40.0 ml ESV(sp4-el): 39.8 ml EF(MOD-sp4): 59.2 % EF(sp4-el): 61.5 % SV(sp4-el): 63.5 ml LA A4 area: 15.8 cm2 LA dimension(2D): 3.4 cm RA A4 area: 16.7 cm2 Doppler Measurements & Calculations MV E max mikel: 81.4 cm/sec Lat Peak E' Mikel: 5.7 cm/sec Med Peak E' Mikel: 6.9 cm/sec MV A max mikel: 107.3 cm/sec E/E' lat: 14.3 E/E' med: 11.8 MV E/A: 0.76 Ao V2 max: 109.8 cm/sec LV V1 max: 90.1 cm/sec PA V2 max: 74.3 cm/sec Ao max P.8 mmHg LV V1 max P.2 mmHg ECHO/Echo Complete W/ Contrast Interpretation Summary Normal LV size. Left ventricular systolic function is normal. The estimated ejection fraction is 65 %. Mild concentric left ventricular hypertrophy. Stage 1 diastolic dysfunction. Contrast injection was performed. Ordering Physician: Cody Peng Referring Physician: RADHA Performed By: Liya Lemon RCS
== END | disposition home or self-care (01) ==
LOC: CVS 07:55
PROVIDERS: PCP Family Medicine Geriatric Medicine; Visit Provider Internal Medicine Cardiovascular Disease
DX: R00.2 Palpitations (principal)
CPT/HCPCS: 93306; Q9957; A4216; C8929

== ENCOUNTER → 2022-01-18 | Outpatient (CLI) | payer MEDICARE, SELFPAY ==
[2022-01-18 17:16] LABS: Absolute Lymphocyte Count 2.09 X10^3/uL (0.83-4.51); Absolute Neutrophil Count 3.9 X10^3/uL (2.0-7.7); Basophil# 0.05 X10^3/uL; Basophil% 0.7 % (0-1); Eosinophil# 0.17 X10^3/uL; Eosinophils% 2.5 % (0-5); Hematocrit 38.8 % (37-47); Hemoglobin 12.4 g/dL (12.0-15.0); Lymphocyte # 2.09 X10^3/ul (0.83-4.51); Lymphocyte % 30.5 % (19-41); Mean Corpuscular Hgb 30.9 pg (27.0-32.0); Mean Corpuscular Volume 96.8 fL (81-99); Mean Platelet Vol. 10.4 fl (6.2-12.0); Monocyte# 0.57 X10^3/uL; Monocyte% 8.3 % (0-10); NRBC Flagged by Analyzer 0 % (0-5); Neutrophil # 3.93 X10^3/uL (2.7-7.7); Neutrophil % 57.3 % (47-70); Platelet Count 268 K/mm3 (150-450); RBC Distribution Width CV 13.2 % (11.6-14.6); Red Blood Count 4.01 M/mm3 (4.2-5.4); White Blood Count 6.9 K/mm3 (4.4-11.0)
[2022-01-18 17:44] LABS: ALB/GLOB Ratio 0.9 RATIO (0.9-2.4); AST(SGOT) 18 U/L (15-37); Alanine Aminotransfer ALT/SGPT 23 U/L (13-56); Albumin, Serum 3.3 g/dL (3.2-5.0); Alkaline Phosphatase 60 U/L (45-117); Anion Gap 2 (5-15); BUN 28 mg/dL (7-18); BUN/Creat Ratio 27.2 RATIO (10-20); Calcium,Total 8.6 mg/dL (8.5-10.1); Chloride 104 mmol/L (98-107); Cholesterol 220 mg/dL (200); Creatinine, Serum 1.03 mg/dL (0.55-1.02); EST Glomerular Filtration Rate 55 mL/min (>60); Est Glom Filt Rate - Afr Amer 66 mL/min (>60); Globulin 3.6 g/dL (2.2-4.2); Glucose 100 mg/dL (74-106); High Density Lipoprotein 34 mg/dL; Potassium 4.2 mmol/L (3.5-5.1); Protein, Total 6.9 g/dL (6.4-8.2); Sodium Level 138 mmol/L (136-145); Thyroid Stim Hormone (TSH) 4.59 uIU/mL (0.358-3.74); Triglycerides 448 mg/dL
[2022-01-18 20:00] LABS: Vitamin D,25 Hydroxy 19.2 ng/mL
== END | disposition home or self-care (01) ==
LOC: POLAB3 15:22
PROVIDERS: PCP Family Medicine Geriatric Medicine; Visit Provider Family Medicine Geriatric Medicine
DX: E55.9 Vitamin D deficiency, unspecified (principal); E78.5 Hyperlipidemia, unspecified; R53.83 Other fatigue
CPT/HCPCS: 36415; 80053; 80061; 82306; 84443; 85025

== ENCOUNTER → 2022-04-03 | Outpatient (CLI) | payer MEDICARE, SELFPAY | END | disposition home or self-care (01) | LOC: PSN 14:05 | PROVIDERS: PCP Family Medicine Geriatric Medicine; Referring Provider Family Medicine Geriatric Medicine; Visit Provider Family Medicine Geriatric Medicine | DX: R68.83 Chills (without fever) (principal); Z20.822 Contact with and (suspected) exposure to COVID-19 | CPT/HCPCS: 87635; 87804; 87807; C9803; U0003; U0005 ==

== ENCOUNTER → 2022-04-18 | Outpatient (CLI) | payer MEDICARE, SELFPAY ==
[2022-04-18 17:07] LABS: Absolute Lymphocyte Count 1.94 X10^3/uL (0.83-4.51); Basophil# 0.05 X10^3/uL; Basophil% 0.9 % (0-1); Eosinophil# 0.16 X10^3/uL; Eosinophils% 2.8 % (0-5); Lymphocyte # 1.94 X10^3/ul (0.83-4.51); Lymphocyte % 34.2 % (19-41); Mean Corp Hgb Conc 32.5 g/dL (32-36); Mean Corpuscular Hgb 30.9 pg (27.0-32.0); Mean Platelet Vol. 10.3 fl (6.2-12.0); Monocyte# 0.53 X10^3/uL; Monocyte% 9.3 % (0-10); NRBC Flagged by Analyzer 0 % (0-5); Neutrophil # 2.97 X10^3/uL (2.7-7.7); Neutrophil % 52.3 % (47-70); Platelet Count 233 K/mm3 (150-450); RBC Distribution Width CV 13.3 % (11.6-14.6); RBC Distribution Width SD 46.3 fl (35.1-43.9); Red Blood Count 4.21 M/mm3 (4.2-5.4); White Blood Count 5.7 K/mm3 (4.4-11.0)
[2022-04-18 17:24] LABS: Vitamin D,25 Hydroxy 22.8 ng/mL
[2022-04-18 17:31] LABS: ALB/GLOB Ratio 0.8 RATIO (0.9-2.4); AST(SGOT) 14 U/L (15-37); Alanine Aminotransfer ALT/SGPT 21 U/L (13-56); Albumin, Serum 3.3 g/dL (3.2-5.0); Alkaline Phosphatase 59 U/L (45-117); Anion Gap 6 (5-15); BUN 26 mg/dL (7-18); BUN/Creat Ratio 27.8 RATIO (10-20); Calcium,Total 9.2 mg/dL (8.5-10.1); Chloride 107 mmol/L (98-107); Cholesterol 226 mg/dL (200); Creatinine, Serum 0.93 mg/dL (0.55-1.02); EST Glomerular Filtration Rate 61 mL/min (>60); Est Glom Filt Rate - Afr Amer 74 mL/min (>60); Globulin 3.9 g/dL (2.2-4.2); Glucose 96 mg/dL (74-106); High Density Lipoprotein 42 mg/dL; Potassium 4.4 mmol/L (3.5-5.1); Protein, Total 7.2 g/dL (6.4-8.2); Sodium Level 141 mmol/L (136-145); Thyroid Stim Hormone (TSH) 2.32 uIU/mL (0.358-3.74); Triglycerides 231 mg/dL; Very Low Density Lipoprotein 46 mg/dL (5-40)
== END | disposition home or self-care (01) ==
LOC: POLAB3 15:06
PROVIDERS: PCP Family Medicine Geriatric Medicine; Visit Provider Family Medicine Geriatric Medicine
DX: E55.9 Vitamin D deficiency, unspecified (principal); E78.5 Hyperlipidemia, unspecified; R53.83 Other fatigue
CPT/HCPCS: 36415; 80053; 80061; 82306; 84443; 85025

== ENCOUNTER → 2022-07-04 | Outpatient (CLI) | payer MEDICARE, SELFPAY | END | disposition home or self-care (01) | PROVIDERS: PCP Family Medicine Geriatric Medicine; Visit Provider Nurse Practitioner Gerontology | DX: R00.0 Tachycardia, unspecified (principal) | CPT/HCPCS: 93225; 93226 ==

== ENCOUNTER → 2022-07-26 | Outpatient (CLI) | payer MEDICARE, SELFPAY ==
[2022-07-26 17:16] LABS: Absolute Lymphocyte Count 2.12 X10^3/uL (0.83-4.51); Absolute Neutrophil Count 3.1 X10^3/uL (2.0-7.7); Basophil# 0.05 X10^3/uL; Basophil% 0.9 % (0-1); Eosinophil# 0.12 X10^3/uL; Hemoglobin 13.9 g/dL (12.0-15.0); Lymphocyte # 2.12 X10^3/ul (0.83-4.51); Lymphocyte % 36.1 % (19-41); Mean Corp Hgb Conc 33.1 g/dL (32-36); Mean Corpuscular Hgb 30.7 pg (27.0-32.0); Mean Corpuscular Volume 92.7 fL (81-99); Mean Platelet Vol. 11.1 fl (6.2-12.0); Monocyte# 0.46 X10^3/uL; Monocyte% 7.8 % (0-10); NRBC Flagged by Analyzer 0 % (0-5); Neutrophil % 52.9 % (47-70); Platelet Count 252 K/mm3 (150-450); RBC Distribution Width CV 12.8 % (11.6-14.6); RBC Distribution Width SD 43.9 fl (35.1-43.9); Red Blood Count 4.53 M/mm3 (4.2-5.4); White Blood Count 5.9 K/mm3 (4.4-11.0)
[2022-07-26 17:35] LABS: Vitamin D,25 Hydroxy 17.1 ng/mL
[2022-07-26 17:53] LABS: ALB/GLOB Ratio 0.9 RATIO (0.9-2.4); AST(SGOT) 20 U/L (15-37); Alanine Aminotransfer ALT/SGPT 20 U/L (13-56); Albumin, Serum 3.6 g/dL (3.2-5.0); Alkaline Phosphatase 62 U/L (45-117); Anion Gap 7 (5-15); BUN 26 mg/dL (7-18); BUN/Creat Ratio 27.6 RATIO (10-20); Calcium,Total 9.4 mg/dL (8.5-10.1); Chloride 107 mmol/L (98-107); Cholesterol 216 mg/dL (200); Creatinine, Serum 0.94 mg/dL (0.55-1.02); EST Glomerular Filtration Rate 61 mL/min (>60); Est Glom Filt Rate - Afr Amer 74 mL/min (>60); Glucose 87 mg/dL (74-106); High Density Lipoprotein 39 mg/dL; Protein, Total 7.6 g/dL (6.4-8.2); Sodium Level 140 mmol/L (136-145); Thyroid Stim Hormone (TSH) 2.98 uIU/mL (0.358-3.74); Triglycerides 223 mg/dL; Very Low Density Lipoprotein 45 mg/dL (5-40)
== END | disposition home or self-care (01) ==
PROVIDERS: PCP Family Medicine Geriatric Medicine; Visit Provider Family Medicine Geriatric Medicine
DX: E55.9 Vitamin D deficiency, unspecified (principal); R53.83 Other fatigue; E78.5 Hyperlipidemia, unspecified
CPT/HCPCS: 36415; 80053; 80061; 82306; 84443; 85025

== ENCOUNTER → 2022-10-25 | Outpatient (CLI) | payer MEDICARE, SELFPAY ==
[2022-10-25 17:15] LABS: Absolute Neutrophil Count 2.8 X10^3/uL (2.0-7.7); Basophil# 0.06 X10^3/uL; Basophil% 1.1 % (0-1); Eosinophil# 0.16 X10^3/uL; Hematocrit 42.9 % (37-47); Hemoglobin 13.5 g/dL (12.0-15.0); Lymphocyte % 35.5 % (19-41); Mean Corp Hgb Conc 31.5 g/dL (32-36); Mean Corpuscular Hgb 29.9 pg (27.0-32.0); Mean Corpuscular Volume 95.1 fL (81-99); Mean Platelet Vol. 10.6 fl (6.2-12.0); Monocyte# 0.37 X10^3/uL; Monocyte% 6.9 % (0-10); NRBC Flagged by Analyzer 0 % (0-5); Neutrophil # 2.84 X10^3/uL (2.7-7.7); Neutrophil % 53.1 % (47-70); Platelet Count 260 K/mm3 (150-450); RBC Distribution Width CV 13.6 % (11.6-14.6); RBC Distribution Width SD 47.6 fl (35.1-43.9); Red Blood Count 4.51 M/mm3 (4.2-5.4); White Blood Count 5.4 K/mm3 (4.4-11.0)
[2022-10-25 17:30] LABS: Vitamin D,25 Hydroxy 14.6 ng/mL
[2022-10-25 17:57] LABS: AST(SGOT) 19 U/L (15-37); Alanine Aminotransfer ALT/SGPT 20 U/L (13-56); Albumin, Serum 3.5 g/dL (3.2-5.0); Alkaline Phosphatase 58 U/L (45-117); Anion Gap 8 (5-15); BUN 29 mg/dL (7-18); BUN/Creat Ratio 31.9 RATIO (10-20); Chloride 103 mmol/L (98-107); Cholesterol 227 mg/dL (200); Creatinine, Serum 0.91 mg/dL (0.55-1.02); EST Glomerular Filtration Rate 63 mL/min (>60); Est Glom Filt Rate - Afr Amer 77 mL/min (>60); Globulin 3.6 g/dL (2.2-4.2); Glucose 87 mg/dL (74-106); High Density Lipoprotein 39 mg/dL; Potassium 4.4 mmol/L (3.5-5.1); Protein, Total 7.1 g/dL (6.4-8.2); Sodium Level 138 mmol/L (136-145); Thyroid Stim Hormone (TSH) 3.17 uIU/mL (0.358-3.74); Triglycerides 236 mg/dL; Very Low Density Lipoprotein 47 mg/dL (5-40)
== END | disposition home or self-care (01) ==
PROVIDERS: PCP Family Medicine Geriatric Medicine; Visit Provider Family Medicine Geriatric Medicine
DX: E03.9 Hypothyroidism, unspecified (principal); E55.9 Vitamin D deficiency, unspecified; R53.83 Other fatigue; E78.5 Hyperlipidemia, unspecified
CPT/HCPCS: 36415; 80053; 80061; 82306; 84443; 85025

== ENCOUNTER 2023-02-07 14:11 | Outpatient (CLI) | payer MEDICARE, SELFPAY ==
[2023-02-07 14:40] LABS: Absolute Lymphocyte Count 1.72 X10^3/uL (0.83-4.51); Absolute Neutrophil Count 3.4 X10^3/uL (2.0-7.7); Basophil# 0.05 X10^3/uL; Basophil% 0.9 % (0-1); Eosinophil# 0.09 X10^3/uL; Eosinophils% 1.6 % (0-5); Hematocrit 40.3 % (37-47); Hemoglobin 12.9 g/dL (12.0-15.0); Lymphocyte # 1.72 X10^3/ul (0.83-4.51); Lymphocyte % 30.4 % (19-41); Mean Corpuscular Volume 96.9 fL (81-99); Mean Platelet Vol. 9.6 fl (6.2-12.0); Monocyte# 0.37 X10^3/uL; Monocyte% 6.5 % (0-10); NRBC Flagged by Analyzer 0 % (0-5); Neutrophil # 3.39 X10^3/uL (2.7-7.7); Neutrophil % 60.1 % (47-70); Platelet Count 218 K/mm3 (150-450); RBC Distribution Width CV 13.3 % (11.6-14.6); RBC Distribution Width SD 47.5 fl (35.1-43.9); Red Blood Count 4.16 M/mm3 (4.2-5.4); White Blood Count 5.7 K/mm3 (4.4-11.0)
[2023-02-07 15:09] LABS: Vitamin D,25 Hydroxy 24.7 ng/mL
[2023-02-07 15:19] LABS: ALB/GLOB Ratio 0.9 RATIO (0.9-2.4); AST(SGOT) 19 U/L (15-37); Alanine Aminotransfer ALT/SGPT 18 U/L (13-56); Albumin, Serum 3.4 g/dL (3.2-5.0); Alkaline Phosphatase 58 U/L (45-117); Anion Gap 4 (5-15); BUN 23 mg/dL (7-18); BUN/Creat Ratio 22.3 RATIO (10-20); Calcium,Total 9.2 mg/dL (8.5-10.1); Chloride 108 mmol/L (98-107); Cholesterol 233 mg/dL (200); Creatinine, Serum 1.03 mg/dL (0.55-1.02); EST Glomerular Filtration Rate 55 mL/min (>60); Est Glom Filt Rate - Afr Amer 66 mL/min (>60); Globulin 3.8 g/dL (2.2-4.2); Glucose 88 mg/dL (74-106); High Density Lipoprotein 46 mg/dL; Potassium 4.1 mmol/L (3.5-5.1); Protein, Total 7.2 g/dL (6.4-8.2); Sodium Level 139 mmol/L (136-145); Thyroid Stim Hormone (TSH) 3.51 uIU/mL (0.358-3.74); Triglycerides 145 mg/dL; Very Low Density Lipoprotein 29 mg/dL (5-40)
== END 2023-02-07 23:59 | disposition home or self-care (01) ==
PROVIDERS: PCP Family Medicine Geriatric Medicine; Referring Provider Family Medicine Geriatric Medicine; Visit Provider Family Medicine Geriatric Medicine
DX: E55.9 Vitamin D deficiency, unspecified (principal); R53.83 Other fatigue; Z79.899 Other long term (current) drug therapy
CPT/HCPCS: 36415; 80053; 80061; 82306; 84443; 85025

== ENCOUNTER 2023-04-09 08:00 | Outpatient (RCR) | payer MEDICARE, SELFPAY ==
--- NOTE | 2023-03-19 13:09 | HP.PTEVAL ---
Patient's Visit Information Visit Information Visit Information: ALEJANDRA SHERMAN is a 82 year old F referred to Physical Therapy by Dr. Regino Forrester MD with a diagnosis of back and leg pain. Date of Evaluation: 03/19/23 Physical Therapist: CHARLOTTE Ray Visit Plan Frequency: 2x /Week Duration: 2 Months Plan: 2X/ week for 8 weeks for L hip stretching (LTR, SKC, Piriformis, IT band), neutral spine core stability, glut strength, gait training with HEP HEP: seated modified piriformis stretch on the L and LTR Subjective Subjective: Pt has been seeing Dr Forrester for L back, hip and knee and just started seeing him a few months ago. She had 2 injections in her back and one in her hip. They have helped but kind of wearing off at this point. She got Narco pain meds and that helps some but also take arthritis strength Tylenol with it also. She has no pain in sitting... it is there but not a pain. She has pain with both standing and walking. She has a pinched nerve and DDD/sciatica. She thinks that she has arthritis in her knee. She walks with a cane. She has been using a cane for 3 years. This back pain started about 3 years ago and progressivley gotten worse. No falls. She lifted a really heavy sewing machine and it went from there. She sleeps in a recliner with an adjustable head. She is not sleeping well due to pain and she just does not sleep well. If she is laying on her back it takes her awhile to straighten out her L leg. She lives with her but he works 6 days a week still....he drives a tow truck. Pain back pain: Pain Intensity (Out of 10): 10 L hip pain: Pain Intensity (Out of 10): 10 L knee pain: Pain Intensity (Out of 10): 8 Objective Objective: Gait: Walks with a straight cane with step two pattern and had to stop twice due to SOB on the way back to the treatment area. Pt has decreased stride length B but efrain on the L with flexed trunk and most of the weight on her R LE. LE MMT: R hip flex 16.6 and L 9.4 R knee ext 14.5 and L 10.8 R knee flex 8.8 and L 7.5 R supine hip abd 10.7 and L 9.9 Bridge.... less than 1/4 normal ROM and increase pain L MAJOR piriformis pain and tightness. L IT band tightness and pain. LTR increased pain when knees went to the Right SKC AA increase back pain Walked pt out to her car using a rollator in which she was able to take longer strides (still short) with the L but able to use her leg more and less SOB. Instructed pt in sitting L piriformis stretch but only able to get her L heel to her R jacobo Pt needed min A to get up from the mat table with the head of the table high Balance/Special Test Scores Lower Extremity Functional Score: 18 Goals Goal 1:: I HEP Goal Time Frame: 6-8 Weeks Goal 2:: Decrease back and L LE pain to 5/10 or less with ADL's Goal Time Frame: 6-8 Weeks Goal 3:: Be able to walk back to the treatment room with smooth gait pattern with least restrictive device. Goal Time Frame: 6-8 Weeks Goal 4:: Increase LE strength (at time of the eval: LE MMT: R hip flex 16.6 and L 9.4 R knee ext 14.5 and L 10.8 R knee flex 8.8 and L 7.5 R supine hip abd 10.7 and L 9.9) Goal Time Frame: 6-8 Weeks Rehabilitation Potential Rehabilitation Potential: Good Anticipated Interventions Patient/Client Instruction: Educate patient on: Condition and Plan of Care For the Purpose of:: To decrease pain, To decrease swelling/inflammation, To increase ROM, To improve nutrient delivery to tissue, To improve muscle performance and motor function, To improve ability to perform ADL's, To increase tolerance to activity/condition/position, To improve performance and independence with ADL's, To decrease level of supervision to perform tasks, To improve gait and locomotor functions, To improve health of tissue, To decrease soft tissue restriction, To increase flexibility/ROM, To improve endurance, To improve balance and To improve safety with gait Therapeutic Exercise to Include: Strength training, Endurance training, Balance training, Body mechanics, Postural training, Flexibilty training, Gait and locomotor training, Neuromotor development, Passive ROM, Active ROM, Dynamic Lumbar Stabilization and Scapular Strength/Stabilization For the Purpose of:: To decrease pain, To increase ROM, To improve nutrient delivery to tissue, To increase oxygenation perfusion, To improve muscle performance and motor function, To improve ability to perform ADL's, To increase tolerance to activity/condition/position, To improve performance and independence with ADL's, To improve ability of physical actions for home/community/work/leisure, To improve gait and locomotor functions, To improve health of tissue, To decrease soft tissue restriction, To increase flexibility/ROM, To improve endurance, To improve balance and To improve safety with gait Functional Training to Include: Gait training For the Purpose of:: To improve gait and locomotor functions and To improve safety with gait Manual Therapy Techniques to Include: Mobilization, Passive ROM and Soft tissue mobilization For the Purpose of:: To decrease pain, To decrease swelling/inflammation, To increase ROM, To improve nutrient delivery to tissue, To improve muscle performance and motor function and To improve ability to perform ADL's Text: Thank you for the opportunity to evaluate your patient. For Medicare and Medicare HMO plans, please review the plan of care and approve it. It will need to be FAXED BACK to us at [phone] for Medicare purposes. For Medicare only, by signing this I certify the plan of care. Please let me know if there are questions or concerns regarding this plan of care. Physician Signature: Date:
--- NOTE | 2023-08-14 07:33 | HP.PT.NRP(2) ---
Patient Information Patient Information: ALEJANDRA SHERMAN was seen in my office for initial evaluation on . The following Plan of Care was established for this patient: Last Seen Last Seen: This patient was last seen in our office . Pertinent comments regarding their Physical therapy will appear below: At this point I will be discontinuing this patient from physical therapy. I would be happy to see this patient again in the future if found appropriate by the physician. Thank you! Madhuri Kaplan, MPT
== END 2023-04-09 19:00 | disposition home or self-care (01) ==
LOC: PT 08:00
PROVIDERS: PCP Family Medicine Geriatric Medicine; Referring Provider Anesthesiology Pain Medicine; Visit Provider Anesthesiology Pain Medicine
DX: M54.9 Dorsalgia, unspecified (principal); M79.606 Pain in leg, unspecified
CPT/HCPCS: 97110; 97161

== ENCOUNTER → 2023-05-09 | Outpatient (CLI) | payer MEDICARE, SELFPAY ==
[2023-05-09 14:38] LABS: Absolute Lymphocyte Count 1.78 X10^3/uL (0.83-4.51); Absolute Neutrophil Count 5.1 X10^3/uL (2.0-7.7); Basophil# 0.05 X10^3/uL; Basophil% 0.7 % (0-1); Eosinophil# 0.08 X10^3/uL; Eosinophils% 1.1 % (0-5); Hematocrit 40.5 % (37-47); Hemoglobin 12.8 g/dL (12.0-15.0); Lymphocyte # 1.78 X10^3/ul (0.83-4.51); Lymphocyte % 23.7 % (19-41); Mean Corp Hgb Conc 31.6 g/dL (32-36); Mean Corpuscular Hgb 30.9 pg (27.0-32.0); Mean Corpuscular Volume 97.8 fL (81-99); Mean Platelet Vol. 9.9 fl (6.2-12.0); Monocyte# 0.49 X10^3/uL; Monocyte% 6.5 % (0-10); NRBC Flagged by Analyzer 0 % (0-5); Neutrophil # 5.08 X10^3/uL (2.7-7.7); Neutrophil % 67.5 % (47-70); Platelet Count 240 K/mm3 (150-450); RBC Distribution Width CV 13.2 % (11.6-14.6); RBC Distribution Width SD 47.3 fl (35.1-43.9); Red Blood Count 4.14 M/mm3 (4.2-5.4); White Blood Count 7.5 K/mm3 (4.4-11.0)
[2023-05-09 14:57] LABS: Vitamin D,25 Hydroxy 18.6 ng/mL
[2023-05-09 15:07] LABS: ALB/GLOB Ratio 0.9 RATIO (0.9-2.4); AST(SGOT) 14 U/L (15-37); Alanine Aminotransfer ALT/SGPT 22 U/L (13-56); Albumin, Serum 3.4 g/dL (3.2-5.0); Alkaline Phosphatase 56 U/L (45-117); Anion Gap 3 (5-15); BUN 29 mg/dL (7-18); BUN/Creat Ratio 29.1 RATIO (10-20); Calcium,Total 8.8 mg/dL (8.5-10.1); Chloride 109 mmol/L (98-107); Cholesterol 229 mg/dL (200); EST Glomerular Filtration Rate 57 mL/min (>60); Est Glom Filt Rate - Afr Amer 69 mL/min (>60); Globulin 3.7 g/dL (2.2-4.2); Glucose 113 mg/dL (74-106); High Density Lipoprotein 46 mg/dL; Protein, Total 7.1 g/dL (6.4-8.2); Sodium Level 141 mmol/L (136-145); Thyroid Stim Hormone (TSH) 3.47 uIU/mL (0.358-3.74); Triglycerides 274 mg/dL; Very Low Density Lipoprotein 55 mg/dL (5-40)
== END | disposition home or self-care (01) ==
LOC: POLAB3 13:53
PROVIDERS: PCP Family Medicine Geriatric Medicine; Visit Provider Family Medicine Geriatric Medicine
DX: R53.83 Other fatigue (principal); E78.5 Hyperlipidemia, unspecified; E55.9 Vitamin D deficiency, unspecified
CPT/HCPCS: 36415; 80053; 80061; 82306; 84443; 85025

== ENCOUNTER → 2023-06-08 | Outpatient (CLI) | payer MEDICARE, SELFPAY ==
--- NOTE | 2023-06-08 09:42 | RAD_ITS ---
INDICATION: PAIN -- -- PAIN LATERAL ARM SINCE FLU SHOT 2 WKS AGO EXAMINATION/TECHNIQUE: X-RAY - LEFT XR Shoulder Min 2 Views 5 VIEWS COMPARISON: FINDINGS: SOFT TISSUES: No soft tissue swelling or gas. No radiopaque foreign body. BONES/JOINTS: Mild acromioclavicular hypertrophy. Mild glenohumeral joint space narrowing. No acute fracture or subluxation.. Normal alignment. No sclerotic or destructive changes observed. RAD/Shoulder min 2 Views IMPRESSION: Mild degenerative changes. Electronically Signed: David Barnett MD at 16:28 EDT ,
== END | disposition home or self-care (01) ==
LOC: RAD 09:40
PROVIDERS: PCP Family Medicine Geriatric Medicine; Referring Provider Family Medicine Geriatric Medicine; Visit Provider Family Medicine Geriatric Medicine
DX: M25.512 Pain in left shoulder (principal)
CPT/HCPCS: 73030

== ENCOUNTER → 2023-06-18 | Outpatient (CLI) | payer MEDICARE, SELFPAY ==
[2023-06-18 14:05] LABS: Amphetamine Urine VISTA NEGATIVE (<1000 ng/mL); Barbiturate Urine VISTA NEGATIVE (< 200 ng/mL); Benzodiazepine Urine VISTA NEGATIVE (< 200 ng/mL); Cocaine Urine VISTA NEGATIVE (< 300 ng/mL); Ecstacy Urine VISTA NEGATIVE (< 500 ng/mL); Methadone Urine VISTA NEGATIVE (< 300 ng/mL); PCP Urine VISTA NEGATIVE (< 25 ng/mL); THC Urine VISTA NEGATIVE (< 50 ng/mL); Vista UDS pH Range 5
== END | disposition home or self-care (01) ==
LOC: LAB 13:34
PROVIDERS: PCP Family Medicine Geriatric Medicine; Referring Provider Anesthesiology Pain Medicine; Visit Provider Anesthesiology Pain Medicine
DX: F11.20 Opioid dependence, uncomplicated (principal)
CPT/HCPCS: 80307

== ENCOUNTER → 2023-06-28 | Outpatient (CLI) | payer MEDICARE, SELFPAY | END | disposition home or self-care (01) | LOC: PSN 13:43 | PROVIDERS: PCP Family Medicine Geriatric Medicine; Referring Provider Family Medicine Geriatric Medicine; Visit Provider Family Medicine Geriatric Medicine | DX: U07.1 COVID-19 (principal); R68.83 Chills (without fever) | CPT/HCPCS: 87635; 87804; 87807; C9803 ==

== ENCOUNTER → 2023-07-30 | Outpatient (CLI) | payer MEDICARE, SELFPAY ==
--- NOTE | 2023-07-30 11:45 | RAD_ITS ---
STUDY: X-RAY - PELVIS AND LEFT HIP REASON FOR EXAM: Female, 82 years old. LEFT HIP PAIN TECHNIQUE: 3 views of the pelvis and hip. COMPARISON: None. FINDINGS: There is a non-specific bowel gas pattern. Normal visualized soft tissue structures. Normal bilateral iliac wings, sacroiliac joints and visualized sacrum. Normal bilateral superior and inferior pubic rami. Normal pubic symphysis. Normal bilateral ischial tuberosities. Normal visualized femoral head. Normal acetabulum. Severe left hip arthrosis with prkh-pa-eflu articulation. RAD/HIP, UNI W/ Pelvis 2-3 Views IMPRESSION: Severe left hip arthrosis with [id number] articulation and osteophyte formation. No evidence of focal fracture. Electronically Signed: Rocky Sanchez DO at 18:53 EST ,
== END | disposition home or self-care (01) ==
LOC: RAD 11:39
PROVIDERS: PCP Family Medicine Geriatric Medicine; Referring Provider Anesthesiology Pain Medicine; Visit Provider Anesthesiology Pain Medicine
DX: M16.12 Unilateral primary osteoarthritis, left hip (principal)
CPT/HCPCS: 73502

== ENCOUNTER → 2023-08-24 | Outpatient (CLI) | payer MEDICARE, SELFPAY ==
--- OUTSIDE RECORDS SUMMARY | 2023-08-24 10:16 | XMS RPT_ITS | CCD ---
Author Name Unknown Address [facility] [place] [id number] Organization [facility] Results Test Name Value Interpretation Reference Range Facil ity Progress note 10-02-2020 Note Date & Type Note Facility 10-02-2020 Note HNO ID: [id number] Author: Clarissa Rodriguez) Pawan Service: ? Author Type: Physician Wellness Nurse Type: Progress Notes Filed: 10/02/2020 1:07 PM Note Text: This note was created using [employer]. Subjective Alejandra Sherman is a 79 year old female. HPI Patient presents with right hand redness and swelling for a week. She had bumped her hand on the wall when she was putting a fitted sheet on her bed a week ago. She has 2 scrapes on her hand. Over the past 2 to 3 days she has noticed redness and swelling near the open areas. No fever or chills. No drainage. She was hospitalized and had surgery on her left elbow in mid July for a septic bursitis that the culture showed MRSA. She denies any history of MRSA prior to that. Review of Systems Constitutional: Negative for chills, fatigue and fever. HENT: Negative. Respiratory: Negative. Cardiovascular: Negative. Gastrointestinal: Negative. Genitourinary: Negative. Musculoskeletal: Right hand redness and swelling All other systems reviewed and are negative. History reviewed. No pertinent past medical history. Current Outpatient Medications Medication Sig Dispense Refill - levothyroxine (SYNTHROID) 25 mcg tablet - ALBUTEROL INHALATION Inhale as instructed. Pt has albuterol inhaler and nebulizer - NAPROXEN ORAL Take by mouth. - doxycycline (VIBRA-TABS) 100 mg tablet Take 1 tablet by mouth twice daily for 10 days. 20 tablet 0 No current facility-administered medications for this visit. History reviewed. No pertinent surgical history. History reviewed. No pertinent family history. Social History Tobacco Use - Smoking status: Former Smoker - Smokeless tobacco: Never Used Substance Use Topics - Alcohol use: Not on file - Drug use: Not on file Objective BP 128/80 Pulse 118 Temp 36.4 ?C (97.6 ?F) (Tympanic) Resp 18 Wt 95.3 kg (210 lb) SpO2 96% Physical Exam Vitals reviewed. Constitutional: Appearance: Normal appearance. HENT: Head: Normocephalic and atraumatic. Musculoskeletal: Comments: Exam of the right hand reveals an abrasion to the dorsal mid hand with surrounding redness and warmth. No lymphangitic streaking. No sign of abscess. Patient also has redness and an abrasion to the fourth digit with some surrounding redness. No drainage. No lymphangitic streaking. Neurological: General: No focal deficit present. Mental Status: She is alert and oriented to person, place, and time. Assessment and Plan ASSESSMENT/PLAN: 1. Cellulitis of hand, right - ICD9: 682.4, ICD10: L03.113 I will cover with doxycycline to cover for MRSA as she just had an infection in the left elbow with MRSA. Recommended follow-up with PCP. Discussed red flags for ER care. Patient and daughter agreeable. Clarissa Villalta PA-C Medical Decision Making: Problems: Low: Acute, uncomplicated illness or injury Data: Unique source(s) for external note(s) reviewed: 2 Unique test result(s) reviewed: 1 Risk: Moderate: Drug management Medical Decision Making Level: 4 - Moderate [facility] Clinical Note 09-23-2020 Note Date & Type Note Facility 09-23-2020 Note Patient Outreach ([facility]) ALEJANDRA SHERMAN ([id number]) 1940 F Date Time Provider Department 09/23/20 [facility] During your visit today, we recorded the following information about you: Allergies As of Date: 09/23/2020 Noted Allergy Reaction HYDROCODONE-ACETAMINOPHEN 11/10/2018 8 - GI Upset PENICILLINS 11/10/2018 4 - Hives Date Reviewed: 10/05/2019 Reviewed by: Steffanie Chow MA - Fully Assessed Order(s):SARS-COVID VACCINE 1ST DOSE APPT [[id number]] Order #: [id number] FUTURE Prescriptions as of 09/23/2020 Sig: LEVOTHYROXINE 25 MCG TABLET ALBUTEROL INHALATION Inhale as instructed. Pt has * NAPROXEN ORAL Take by mouth. Problem List As Of Date: 09/23/2020 (None) Letter Text Encounter Status:Closed by [facility], PRODUSER on 09/27/20 [facility] Summary Purpose Family History No Family History Records Found Advance Directives No Advanced Directives Records Found Additional Source Comments INFORMATION SOURCE (unrecogn ized section and content) FOR RECORDS PERTAINING TO PATIENTS WHO ARE OR HAVE BEEN ENROLLED IN A CHEMICAL DEPENDENCY/SUBSTANCEABUSE PROGRAM, SOME INFORMATION MAY BE OMITTED. This clinical summary was aggregated from multiple sources. Caution should be exercised in using it in the provision of clinical care. This summary normalizes information from multiple sources, and as a consequence, information in this document may materially change the coding, format and clinical context of patient data. In addition, data may be omitted in some cases. CLINICAL DECISIONS SHOULD BE BASED ON THE PRIMARY CLINICAL RECORDS. [employer] provides no warranty or guarantee of the accuracy or completeness of information in this document.
[2023-08-24 11:27] LABS: Absolute Lymphocyte Count 1.88 X10^3/uL (0.83-4.51); Absolute Neutrophil Count 3.8 X10^3/uL (2.0-7.7); Basophil# 0.08 X10^3/uL; Basophil% 1.2 % (0-1); Eosinophil# 0.09 X10^3/uL; Eosinophils% 1.4 % (0-5); Hematocrit 41.5 % (37-47); Lymphocyte # 1.88 X10^3/ul (0.83-4.51); Lymphocyte % 28.7 % (19-41); Mean Corp Hgb Conc 31.3 g/dL (32-36); Mean Corpuscular Hgb 30.4 pg (27.0-32.0); Mean Corpuscular Volume 97.2 fL (81-99); Mean Platelet Vol. 10.1 fl (6.2-12.0); Monocyte# 0.62 X10^3/uL; Monocyte% 9.5 % (0-10); NRBC Flagged by Analyzer 0 % (0-5); Neutrophil # 3.75 X10^3/uL (2.7-7.7); Neutrophil % 57.4 % (47-70); Platelet Count 338 K/mm3 (150-450); RBC Distribution Width CV 13.9 % (11.6-14.6); RBC Distribution Width SD 49.6 fl (35.1-43.9); Red Blood Count 4.27 M/mm3 (4.2-5.4); White Blood Count 6.5 K/mm3 (4.4-11.0)
[2023-08-24 11:41] LABS: ALB/GLOB Ratio 0.7 RATIO (0.9-2.4); AST(SGOT) 15 U/L (15-37); Alanine Aminotransfer ALT/SGPT 17 U/L (13-56); Albumin, Serum 3.1 g/dL (3.2-5.0); Alkaline Phosphatase 64 U/L (45-117); Anion Gap 8 (5-15); BUN 18 mg/dL (7-18); BUN/Creat Ratio 14.8 RATIO (10-20); Calcium,Total 9.4 mg/dL (8.5-10.1); Chloride 103 mmol/L (98-107); Cholesterol 224 mg/dL (200); Creatinine, Serum 1.22 mg/dL (0.55-1.02); EST Glomerular Filtration Rate 45 mL/min (>60); Est Glom Filt Rate - Afr Amer 54 mL/min (>60); Globulin 4.6 g/dL (2.2-4.2); Glucose 104 mg/dL (74-106); High Density Lipoprotein 32 mg/dL; Potassium 3.7 mmol/L (3.5-5.1); Protein, Total 7.7 g/dL (6.4-8.2); Sodium Level 137 mmol/L (136-145); Thyroid Stim Hormone (TSH) 2.79 uIU/mL (0.358-3.74); Triglycerides 198 mg/dL; Very Low Density Lipoprotein 40 mg/dL (5-40)
== END | disposition home or self-care (01) ==
LOC: POLAB3 09:47
PROVIDERS: PCP Family Medicine Geriatric Medicine; Visit Provider Family Medicine Geriatric Medicine
DX: R53.83 Other fatigue (principal); E55.9 Vitamin D deficiency, unspecified; E78.5 Hyperlipidemia, unspecified
CPT/HCPCS: 36415; 80053; 80061; 82306; 84443; 85025

== ENCOUNTER → 2023-11-05 | Outpatient (CLI) | payer MEDICARE, SELFPAY ==
[2023-11-05 13:12] LABS: Amphetamine Urine VISTA NEGATIVE (<1000 ng/mL); Barbiturate Urine VISTA NEGATIVE (< 200 ng/mL); Benzodiazepine Urine VISTA NEGATIVE (< 200 ng/mL); Cocaine Urine VISTA NEGATIVE (< 300 ng/mL); Ecstacy Urine VISTA NEGATIVE (< 500 ng/mL); Methadone Urine VISTA NEGATIVE (< 300 ng/mL); PCP Urine VISTA NEGATIVE (< 25 ng/mL); THC Urine VISTA NEGATIVE (< 50 ng/mL); Vista UDS pH Range 5
== END | disposition home or self-care (01) ==
LOC: LAB 11:13
PROVIDERS: PCP Family Medicine Geriatric Medicine; Referring Provider Anesthesiology Pain Medicine; Visit Provider Anesthesiology Pain Medicine
DX: F11.20 Opioid dependence, uncomplicated (principal)
CPT/HCPCS: 80307

== ENCOUNTER → 2023-12-13 | Outpatient (CLI) | payer MEDICARE, SELFPAY ==
[2023-12-13 13:14] LABS: Amphetamine Urine VISTA NEGATIVE (<1000 ng/mL); Barbiturate Urine VISTA NEGATIVE (< 200 ng/mL); Benzodiazepine Urine VISTA NEGATIVE (< 200 ng/mL); Cocaine Urine VISTA NEGATIVE (< 300 ng/mL); Ecstacy Urine VISTA NEGATIVE (< 500 ng/mL); Methadone Urine VISTA NEGATIVE (< 300 ng/mL); PCP Urine VISTA NEGATIVE (< 25 ng/mL); THC Urine VISTA NEGATIVE (< 50 ng/mL); Vista UDS pH Range 4
== END | disposition home or self-care (01) ==
LOC: LAB 12:15
PROVIDERS: PCP Family Medicine Geriatric Medicine; Referring Provider Anesthesiology Pain Medicine; Visit Provider Anesthesiology Pain Medicine
DX: F11.20 Opioid dependence, uncomplicated (principal)
CPT/HCPCS: 80307

== ENCOUNTER → 2024-01-10 | Outpatient (CLI) | payer MEDICARE, SELFPAY ==
[2024-01-10 15:02] LABS: Amphetamine Urine VISTA NEGATIVE (<1000 ng/mL); Barbiturate Urine VISTA NEGATIVE (< 200 ng/mL); Benzodiazepine Urine VISTA NEGATIVE (< 200 ng/mL); Cocaine Urine VISTA NEGATIVE (< 300 ng/mL); Ecstacy Urine VISTA NEGATIVE (< 500 ng/mL); Methadone Urine VISTA NEGATIVE (< 300 ng/mL); PCP Urine VISTA NEGATIVE (< 25 ng/mL); THC Urine VISTA NEGATIVE (< 50 ng/mL); Vista UDS pH Range 5
== END | disposition home or self-care (01) ==
PROVIDERS: PCP Family Medicine Geriatric Medicine; Referring Provider Anesthesiology Pain Medicine; Visit Provider Anesthesiology Pain Medicine
DX: F11.20 Opioid dependence, uncomplicated (principal)
CPT/HCPCS: 80307

== ENCOUNTER → 2024-01-24 | Outpatient (CLI) | payer MEDICARE, SELFPAY ==
--- NOTE | 2024-01-24 16:25 | RAD_ITS ---
STUDY: X-RAY - LUMBAR SPINE REASON FOR EXAM: Female, 83 years old. Muscle spasm of back TECHNIQUE: 4 view(s) of the lumbar spine were obtained. COMPARISON: None FINDINGS: Normal lumbar lordosis. There is mild levoconvex scoliosis. There is a grossly normal alignment of the vertebrae. There is diffuse demineralization with multi-level endplate spondylosis. There is multi-level degenerative disc disease with multi-level disc space narrowing. There is no demonstrated fracture. There is atherosclerotic calcification of the abdominal aorta with ectasia but without a demonstrated aneurysm. RAD/L/S Spine Min 4 Views IMPRESSION: Degenerative changes of the spine, as detailed above. Electronically Signed: Gordon López MD at 17:31 EDT ,
== END | disposition home or self-care (01) ==
LOC: RAD 16:19
PROVIDERS: PCP Family Medicine Geriatric Medicine; Referring Provider Family Medicine Geriatric Medicine; Visit Provider Family Medicine Geriatric Medicine
DX: M62.830 Muscle spasm of back (principal); M79.89 Other specified soft tissue disorders
CPT/HCPCS: 72110

== ENCOUNTER → 2024-01-25 | Outpatient (CLI) | payer MEDICARE, SELFPAY ==
--- NOTE | 2024-01-25 10:45 | VDLE_ITS ---
Reason For Study: RLE SWELLING RIGHT LEFT GSV is normal. CFV is compressible, spontaneous, phasic, CFV is compressible, spontaneous, phasic, competent, and demonstrates normal competent and demonstrates normal augmentation. augmentation. FV is compressible, spontaneous, phasic, competent and demonstrates normal augmentation. POP V is compressible, spontaneous, phasic, competent and demonstrates normal augmentation. T/P Trunk is compressible. PTV is compressible. RT PerV is compressible. Procedure This is a venous duplex using B-mode, color flow and spectral Doppler. Exam performed in department. A preliminary report was called and/or faxed to Dr. Knott @ [phone] @11:15 am. VL/Venous Duplex US, Unilateral Interpretation Summary Deep veins of the right lower extremity are patent and compressible segmentally . There is no evidence of right lower extremity deep vein thrombosis. The right great sapheno us vein appears patent and compressible segmentally. Ordering Physician: Rancho Knott Chi Referring Physician: Rancho Knott Chi Performed By: Saida Potter RVT, RDCS and Student
== END | disposition home or self-care (01) ==
LOC: CVS 10:44
PROVIDERS: PCP Family Medicine Geriatric Medicine; Referring Provider Family Medicine Geriatric Medicine; Visit Provider Family Medicine Geriatric Medicine
DX: M62.830 Muscle spasm of back (principal); M79.89 Other specified soft tissue disorders
CPT/HCPCS: 93971

== ENCOUNTER → 2024-02-21 | Outpatient (CLI) | payer MEDICARE, SELFPAY ==
[2024-02-21 12:22] LABS: Absolute Lymphocyte Count 1.27 X10^3/uL (0.83-4.51); Absolute Neutrophil Count 3.1 X10^3/uL (2.0-7.7); Basophil# 0.05 X10^3/uL; Eosinophil# 0.09 X10^3/uL; Eosinophils% 1.8 % (0-5); Hematocrit 39.4 % (37-47); Hemoglobin 12.5 g/dL (12.0-15.0); Lymphocyte # 1.27 X10^3/ul (0.83-4.51); Lymphocyte % 25.5 % (19-41); Mean Corp Hgb Conc 31.7 g/dL (32-36); Mean Corpuscular Hgb 29.8 pg (27.0-32.0); Mean Platelet Vol. 9.9 fl (6.2-12.0); Monocyte# 0.44 X10^3/uL; Monocyte% 8.8 % (0-10); NRBC Flagged by Analyzer 0 % (0-5); Neutrophil # 3.11 X10^3/uL (2.7-7.7); Neutrophil % 62.3 % (47-70); Platelet Count 256 K/mm3 (150-450); RBC Distribution Width CV 13.9 % (11.6-14.6); RBC Distribution Width SD 47.5 fl (35.1-43.9); Red Blood Count 4.19 M/mm3 (4.2-5.4)
[2024-02-21 12:46] LABS: ALB/GLOB Ratio 0.8 RATIO (0.9-2.4); AST(SGOT) 16 U/L (15-37); Alanine Aminotransfer ALT/SGPT 16 U/L (13-56); Albumin, Serum 3.3 g/dL (3.2-5.0); Alkaline Phosphatase 64 U/L (45-117); Anion Gap 7 (5-15); BUN 21 mg/dL (7-18); Calcium,Total 9.3 mg/dL (8.5-10.1); Chloride 107 mmol/L (98-107); Cholesterol 211 mg/dL (200); EST Glomerular Filtration Rate 57 mL/min (>60); Est Glom Filt Rate - Afr Amer 68 mL/min (>60); Globulin 4.1 g/dL (2.2-4.2); Glucose 102 mg/dL (74-106); High Density Lipoprotein 38 mg/dL; Potassium 4.3 mmol/L (3.5-5.1); Protein, Total 7.4 g/dL (6.4-8.2); Sodium Level 140 mmol/L (136-145); Thyroid Stim Hormone (TSH) 3.24 uIU/mL (0.358-3.74); Triglycerides 245 mg/dL; Very Low Density Lipoprotein 49 mg/dL (5-40)
== END | disposition home or self-care (01) ==
LOC: POLAB3 10:26
PROVIDERS: PCP Family Medicine Geriatric Medicine; Visit Provider Family Medicine Geriatric Medicine
DX: R53.83 Other fatigue (principal); E55.9 Vitamin D deficiency, unspecified; E78.5 Hyperlipidemia, unspecified
CPT/HCPCS: 36415; 80053; 80061; 82306; 84443; 85025

== ENCOUNTER → 2024-03-06 | Outpatient (CLI) | payer MEDICARE, SELFPAY ==
[2024-03-06 13:38] LABS: Amphetamine Urine VISTA NEGATIVE (<1000 ng/mL); Barbiturate Urine VISTA NEGATIVE (< 200 ng/mL); Benzodiazepine Urine VISTA NEGATIVE (< 200 ng/mL); Cocaine Urine VISTA NEGATIVE (< 300 ng/mL); Ecstacy Urine VISTA NEGATIVE (< 500 ng/mL); Methadone Urine VISTA NEGATIVE (< 300 ng/mL); PCP Urine VISTA NEGATIVE (< 25 ng/mL); THC Urine VISTA NEGATIVE (< 50 ng/mL); Vista UDS pH Range 4
== END | disposition home or self-care (01) ==
LOC: LAB 11:56
PROVIDERS: PCP Family Medicine Geriatric Medicine; Visit Provider Anesthesiology Pain Medicine
DX: F11.20 Opioid dependence, uncomplicated (principal)
CPT/HCPCS: 80307

== ENCOUNTER 2024-03-09 19:21 | Observation (INO) | payer MEDICARE, SELFPAY ==
[2024-03-09 19:22] VITALS: BP 148/68; PULSE 93; RESP 18; TEMP 36.4; O2SAT 96
--- NOTE | 2024-03-09 19:27 | EDS_ITS ---
HPI HPI - Fall History of Present Illness Chief Complaint: Fall Informant: patient and EMS Narrative Narrative: 83-year-old female states that she was ambulating from the kitchen into the living room where she needs to go to step. She states her cane got in the way and she fell. She states she struck her head against the door and her nose on the ground. She did not have a bloody nose. She states she landed on the left shoulder where she notes pain and limited range of motion. Patient denies any leg symptoms that are new. No loss of conscious. She states she does not take any blood thinners. She states that she sees pain management Dr. Forrester for her hip. She has a hydrocodone allergy in the computer but states she takes hydrocodone on a regular basis through pain management [facility] Medical History Hx of deep venous thrombosis Benign essential HTN Anxiety GERD (gastroesophageal reflux disease) CPAP (continuous positive airway pressure) dependence Sleep apnea Migraines Hypothyroidism History of asthma History of COPD History of arthritis History of Right Foot Fracture Home Medications ?Medication ?Instructions ?Recorded ?Last Taken ?Type levocetirizine 5 mg tablet 5 mg PO DAILY ALLERGIES 04/06/20 03/25/21 History levothyroxine 50 mcg tablet 75 mcg PO DAILY THYROID 06/21/22 Unknown History aspirin 325 mg tablet,delayed 81 mg PO BID Headache 12/27/22 Unknown History release fluticasone fur. 100 mcg-umeclid 1 inh inhalation DAILY 12/27/22 Unknown History 62.5 mcg-vilant 25 mcg inhalat.powder (Trelegy Ellipta) metoprolol tartrate 25 mg tablet 25 mg PO BID #180 tabs 08/16/23 Unknown Rx Allergy/AdvReac Type Severity Reaction Status Date / Time Penicillins Allergy Severe facial Verified 08/16/23 13:09 swelling Surgical History History of foot surgery H/O cataract removal with insertion of prosthetic lens Hx of tubal ligation S/P foot surgery, right History of appendectomy History of cholecystectomy Social History Smoking Status: Former smoker ROS ROS ED Constitutional Constitutional ED: Denies chills, fever(s) or weight loss Eyes Eyes: Denies change in vision or diplopia ENT ENT ED: Denies ear pain, rhinorrhea or sore throat Cardiovascular Cardiovascular: Denies chest pain, orthopnea, palpitations or racing heartbeat Respiratory/Chest Respiratory/Chest: Denies cough, dyspnea or orthopnea Gastrointestinal Gastrointestinal: Denies abdominal pain, diarrhea, nausea or vomiting Genitourinary Genitourinary ED: Denies dysuria, hematuria or urinary frequency Musculoskeletal Musculoskeletal: Reports other Details: Left shoulder pain ; Denies arthralgias or myalgias Integumentary Denies abscess or rash Neurologic Neurologic: Denies headache(s) or weakness Psychiatric Psychiatric: Denies anxiety, depression, suicidal ideation or suicidal thoughts Endocrine Endocrinology: Denies polydipsia, polyphagia or polyuria Allergic/Immunologic Allergic/Immunologic ED: Denies mouth swelling, tongue swelling or urticaria EXAM Physical Exam Const Vital Signs: 03/09/24 19:22 03/09/24 19:24 Temperature 97.6 F L Temperature Source Temporal Pulse Rate 93 Respiratory Rate 18 Respiratory Effort Normal Blood Pressure 148/68 H Blood Pressure Mean 94 Pulse Ox 96 Oxygen Delivery Method Room Air Room Air Positive well nourished, well developed and obese General Appearance ED: well developed and NAD Nutritional Appearance: obese HEENT Reports normocephalic, head/scalp atraumatic and moist mucous membranes Eyes PERRL and EOMs intact bilaterally Neck no lymphadenopathy, supple and no JVD Resp normal respiratory effort and clear to auscultation bilaterally Cardio regular rate, regular rhythm and no murmurs GI normal to inspection, nondistended, normoactive bowel sounds and non-tender Palpation: soft Back/Spine no CVA tenderness and normal ROM Extremity Extremity Narrative: Patient has tenderness to palpation proximally over the left humerus at the level of the shoulder. There is no palpable bony deformity or obvious dislocation. The clavicle and scapula palpates nontender the without deformity. Neurovascular intact distal. General Extremety ED: Negative for edema General Extremity: Negative for edema Neuro oriented x3 and CN's II-XII intact bilaterally Sensorium / Orientation: alert Motor Exam: strength 5/5 throughout Psych mental status grossly normal Mood & Affect: Negative for depressed or tearful Skin no rashes or lesions noted Skin Narrative: Superficial skin tears of the left arm left knee area MDM MDM MDM Narrative Medical decision making narrative: Differential diagnosis includes but not limited to fracture dislocation clavicle fracture AC separation scapular fracture rotator cuff injury intracranial hemorrhage/hematoma fracture My independent interpretation the plain films of the left shoulder is an impacted humeral neck fracture. CT of the brain was obtained read by radiology reviewed by myself. This demonstrates no acute findings of hemorrhage or fracture. Patient received intramuscular morphine. Patient was placed in a sling. Wound to be cleansed and dressed. Family notes that the patient actually uses 2 quad canes to ambulate. She finds it is easier than using a walker. Concern is whether or not she is unable to do any self-care at. She does have a wheelchair but cannot get to the wheelchair or get out of the wheelchair to go to the bathroom without significant assistance if she does not have her canes. We got the patient up and she was able to take maybe 5 steps. She states that she probably will not be able to care for herself at home would most likely need rehab placement. History & Record Review Discussion w/independent historian: Patient and Family Lab Data Attestation: I reviewed the patient's lab results. Labs: Laboratory Results - last 24 hr 03/09/24 21:34 WBC 7.8 RBC 3.98 L Hgb 12.2 Hct 38.1 MCV 95.7 MCH 30.7 MCHC 32.0 RDW Std Deviation 47.6 H RDW Coeff of Stevie 13.5 Plt Count 201 MPV 9.4 Immature Gran % (Auto) 0.500 Neut % (Auto) 67.7 Lymph % (Auto) 22.3 [place] % (Auto) 7.4 Eos % (Auto) 1.5 Baso % (Auto) 0.6 Absolute Neuts (auto) 5.2 Absolute Lymphs (auto) 1.73 Nucleated RBC % 0 Radiography Diagnostic Testing: Clinical Impression(s) from Imaging Studies Shoulder X-Ray 03/09/24 19:40 IMPRESSION: Impacted comminuted left humeral neck fracture. Electronically Signed: Joel Dyer MD at 20:05 EDT Reading Location ID and State: [facility] / [place] , Service support , Brain CT 03/09/24 19:47 IMPRESSION: There are no acute findings. Electronically Signed: Joel Dyer MD at 20:44 EDT , Management Discussion w/another healthcare provider: Hospitalist Discharge Plan Triage Chief Complaint: Fall ED Provider: Stephon Michelle Dx/Rx/DC Orders Clinical Impression: Fall, Closed fracture of left proximal humerus, Head injury, Skin tear Prescriptions: No Action levocetirizine 5 mg tablet 5 mg PO DAILY Trelegy Ellipta 100-62.5-25 mcg blister with device 1 inh inhalation DAILY metoprolol tartrate 25 mg tablet 25 mg PO BID Qty: 180 3RF levothyroxine 50 mcg tablet 75 mcg PO DAILY aspirin 325 mg tablet,delayed release (DR/EC) 81 mg PO BID Primary Care Provider: Rancho Knott Chi Referrals: Rene Pennington MD [Med Staff - Active Staff] - As soon as possible Rancho nKott Chi, MD [Primary Care Provider] - Print Language: Hungarian Disposition Disposition: Home, Self Care
[2024-03-09] MEDS: morphine 10 MG/ML Syringe IM (19:33)
--- NOTE | 2024-03-09 19:40 | RAD_ITS ---
EXAM: XR LEFT SHOULDER COMPLETE, 2 OR MORE VIEWS CLINICAL INDICATION: injury TECHNIQUE: Two or more views of the left shoulder. COMPARISON: No relevant prior studies available. FINDINGS: BONES/JOINTS: Impacted comminuted left humeral neck fracture. Preservation of the joint space. No sclerotic or destructive changes observed. SOFT TISSUES: Unremarkable. No soft tissue swelling or gas. No radiopaque foreign body. RAD/Shoulder min 2 Views IMPRESSION: Impacted comminuted left humeral neck fracture. Electronically Signed: Joel Dyer MD at 20:05 EDT ,
--- NOTE | 2024-03-09 19:47 | CT_ITS ---
STUDY: CT BRAIN WITHOUT CONTRAST REASON FOR EXAM: Female, 83 years old. injury Individualized dose optimization techniques were used for this CT. TECHNIQUE: Transaxial CT imaging of the brain was performed without administration of intravenous contrast material. COMPARISON: None FINDINGS: There are calcifications around the carotid artery. These are noted in the cavernous carotid arteries. Normal calvarium. Normal soft tissues. There is mild cerebral atrophy with widening of the extra-axial spaces and ventricular dilatation. There are areas of decreased attenuation within the white matter tracts of the supratentorial brain, consistent with microvascular disease changes. Normal basal ganglia and thalami. Normal brainstem. There is mild cerebellar atrophy. There is no intracranial hemorrhage. There are no findings of an acute ischemic infarction. Normal visualized paranasal sinuses. ASPECTS Score for Acute Strokes: 05/22 CT/Brain/Head without Contrast IMPRESSION: There are no acute findings. Electronically Signed: Joel Dyer MD at 20:44 EDT ,
[2024-03-09 21:21] VITALS: BMI 35.6
--- NOTE | 2024-03-09 21:36 | HP.PCM.HOS_ITS ---
HPI - General General Date of Admission: 03/09/24 Date of Service: 03/09/24 Chief Complaint: Fall with left humeral fracture, acute on chronic debility HPI Narrative ALEJANDRA SHERMAN, is a 83 F who presented to [facility] ED on 03/09/2024 with left arm pain after a mechanical fall at home. Patient lives at home on her own. She typically uses 2 quad canes for ambulation, finds this easier than using a walker. She does also have a wheelchair at home but her house is not currently wheelchair accessible. Patient was ambulated from the kitchen to the living room and up a step today when her cane got stuck and she fell. States she struck her head against the door and knows the ground and also landed on the left shoulder. She then called EMS, who brought her to the ED. On arrival here, patient was reporting significant left arm and shoulder pain. Shoulder x-ray showed an impacted comminuted left femoral neck fracture. She was given a dose of IM morphine and placed in a sling, had moderate improvement in pain with the morphine. ED staff then tried to get her up to ambulate but she was unable to take a few steps on her own before needing to sit back down again. She notably follows with Dr. Forrester for chronic hip pain. ED physician recommended the patient be admitted for likely rehab placement, and hospitalist was contacted for admission. I saw the patient at the bedside in the ED, 2 other family members present. Patient was sitting up fairly comfortably in bed, conversing normally, no acute distress. She did notably have some facial swelling and some small scrapes and bruises on her arms and legs. She reported mild left arm and shoulder pain, improved from previous. Denied any other acute concerns at this time. Vitals in ED notable for mild hypertension, otherwise unremarkable. Labs were unremarkable. Left shoulder x-ray as noted above. CT brain was nonacute. [facility] Medical History Hx of deep venous thrombosis Benign essential HTN Anxiety GERD (gastroesophageal reflux disease) CPAP (continuous positive airway pressure) dependence Sleep apnea Migraines Hypothyroidism History of asthma History of COPD History of arthritis History of Right Foot Fracture Home Medications ?Medication ?Instructions ?Recorded ?Last Taken ?Type levocetirizine 5 mg tablet 5 mg PO DAILY ALLERGIES 04/06/20 03/25/21 History levothyroxine 50 mcg tablet 75 mcg PO DAILY THYROID 06/21/22 Unknown History aspirin 325 mg tablet,delayed 81 mg PO BID Headache 12/27/22 Unknown History release fluticasone fur. 100 mcg-umeclid 1 inh inhalation DAILY 12/27/22 Unknown History 62.5 mcg-vilant 25 mcg inhalat.powder (Trelegy Ellipta) metoprolol tartrate 25 mg tablet 25 mg PO BID #180 tabs 08/16/23 Unknown Rx baclofen 10 mg tablet 10 mg PO QHS 03/09/24 Unknown History citalopram 20 mg tablet 20 mg PO DAILY 03/09/24 Unknown History hydrocodone-acetaminophen 5-325mg 1 tab PO TID PRN PRN pain 03/09/24 Unknown History 5mg-325mg omeprazole 40 mg capsule,delayed 40 mg PO DAILY 03/09/24 Unknown History release Allergy/AdvReac Type Severity Reaction Status Date / Time Penicillins Allergy Severe facial Verified 08/16/23 13:09 swelling Surgical History History of foot surgery H/O cataract removal with insertion of prosthetic lens Hx of tubal ligation S/P foot surgery, right History of appendectomy History of cholecystectomy Social History Smoking Status: Former smoker ROS Constitutional Constitutional: Denies chills, fatigue or fever(s) Eyes Eyes: Denies change in vision Cardiovascular Cardiovascular: Denies chest pain Respiratory/Chest Respiratory/Chest: Denies shortness of breath at rest Gastrointestinal Gastrointestinal: Denies abdominal pain Musculoskeletal Musculoskeletal: Reports arthralgias and joint pain Neurologic Neurologic: Denies dizziness, focal weakness or headache(s) Vital Signs Vital Signs Vital Signs: 03/09/24 19:22 03/09/24 19:24 Temperature 97.6 F L Temperature Source Temporal Pulse Rate 93 Respiratory Rate 18 Respiratory Effort Normal Blood Pressure 148/68 H Blood Pressure Mean 94 Pulse Ox 96 Oxygen Delivery Method Room Air Room Air Physical Exam Const alert, oriented x3 and no apparent distress Constitutional Narrative: Pleasant elderly female, obese, sitting up comfortably in bed, conversing normally, in no acute distress. General Appearance: cooperative and comfortable HEENT normocephalic, head/scalp atraumatic, hearing grossly normal bilaterally, nasal mucous membranes and turbinates normal and moist oral mucous membranes Eyes PERRL, EOMs intact bilaterally and conjunctivae normal Neck full ROM Chest inspection of chest normal Resp normal respiratory effort, normal air movement, no use of accessory muscles and clear to auscultation bilaterally Cardio regular rate, regular rhythm, no murmurs and peripheral pulses 2+ throughout GI normal to inspection, nondistended, normoactive bowel sounds, soft to palpation, non-tender and non-distended Back/Spine normal ROM Extremity Extremity Narrative: Left arm stable in sling. Mild scrapes and bruises noted on bilateral shins. Neuro no focal motor deficits Speech: speech normal Psych mental status grossly normal Results Lab / Micro Data 03/09/24 21:34 03/09/24 21:34 Imaging Radiology Impression Shoulder X-Ray 03/09/24 19:40 IMPRESSION: Impacted comminuted left humeral neck fracture. Electronically Signed: Joel Dyer MD at 20:05 EDT , Brain CT 03/09/24 19:47 IMPRESSION: There are no acute findings. Electronically Signed: Joel Dyer MD at 20:44 EDT , Assessment & Plan Assessment/Plan (1) Fall: (2) Closed fracture of left proximal humerus: PLAN: Plan Patient is an 83-year-old female who presented [facility] ED on 03/09/2024 after a fall at home. 1. Mechanical fall with left humerus fracture, acute on chronic debility ? Admit under observation status to [facility]. PT/OT/case management consulted. Left shoulder x-ray showed impacted comminuted left humeral neck fracture. Neurovascularly intact. Suspect nonoperative management will be sufficient but will consult orthopedic surgery for further recommendations. Pain control with scheduled Tylenol, oxycodone as needed and IV Dilaudid as needed. Patient lives at home and uses bilateral 4 point canes for ambulation, suspect she will need SNF placement on discharge. Chronic medical conditions: ? Obesity: BMI 37 on admit. Complicates hospital course, care and prognosis. ? JANA: Continue home nocturnal CPAP. ? CKD stage III: Creatinine 1.12 on admit, at baseline. Stable. ? 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 Forrester. On home hydrocodone?acetaminophen 5?325 mg 3 times daily as needed. Treating acute pain on admit as noted above. ? Anxiety/depression: Stable. Continue home citalopram. ? COPD: Stable on room air, not in acute exacerbation. Continue home fluticasone. ? GERD: Continue home PPI. ? Hypertension: Continue home Lopressor. ? Hypothyroidism: Recent TSH normal on 02/20. Continue home Synthroid. DVT prophylaxis: Lovenox CODE STATUS: DNR CCA, DNI Expected disposition: SNF, 1 to 2 days Total clinical time spent by myself addressing the patient's medical issues, reviewing all the data, and collaborating with patient's care team: 55 minutes. Charges/Coding Visit Charges Inpatient E&M: 11548 Init Hosp L2
[2024-03-09 21:41] LABS: Absolute Lymphocyte Count 1.73 X10^3/uL (0.83-4.51); Absolute Neutrophil Count 5.2 X10^3/uL (2.0-7.7); Basophil# 0.05 X10^3/uL; Basophil% 0.6 % (0-1); Eosinophil# 0.12 X10^3/uL; Eosinophils% 1.5 % (0-5); Hematocrit 38.1 % (37-47); Hemoglobin 12.2 g/dL (12.0-15.0); Lymphocyte # 1.73 X10^3/ul (0.83-4.51); Lymphocyte % 22.3 % (19-41); Mean Corpuscular Hgb 30.7 pg (27.0-32.0); Mean Corpuscular Volume 95.7 fL (81-99); Mean Platelet Vol. 9.4 fl (6.2-12.0); Monocyte# 0.57 X10^3/uL; Monocyte% 7.4 % (0-10); NRBC Flagged by Analyzer 0 % (0-5); Neutrophil # 5.24 X10^3/uL (2.7-7.7); Neutrophil % 67.7 % (47-70); Platelet Count 201 K/mm3 (150-450); RBC Distribution Width CV 13.5 % (11.6-14.6); RBC Distribution Width SD 47.6 fl (35.1-43.9); Red Blood Count 3.98 M/mm3 (4.2-5.4); White Blood Count 7.8 K/mm3 (4.4-11.0)
[2024-03-09 21:49] VITALS: BP 167/79; PULSE 93; RESP 16; TEMP 36.9; O2SAT 92
[2024-03-09 21:55] LABS: Anion Gap 4 (5-15); BUN 29 mg/dL (7-18); BUN/Creat Ratio 25.9 RATIO (10-20); Calcium,Total 9.3 mg/dL (8.5-10.1); Chloride 109 mmol/L (98-107); Creatinine, Serum 1.12 mg/dL (0.55-1.02); EST Glomerular Filtration Rate 50 mL/min (>60); Est Glom Filt Rate - Afr Amer 60 mL/min (>60); Estimated Creatinine Clearance 42.23 ml/min; Glucose 128 mg/dL (74-106); Potassium 4.1 mmol/L (3.5-5.1); Sodium Level 141 mmol/L (136-145)
[2024-03-09 22:29] VITALS: BMI 37.0
[2024-03-09 22:41] VITALS: BP 166/76; PULSE 90; RESP 18; TEMP 37.1; O2SAT 97
[2024-03-09 22:53] VITALS: BP 166/76; PULSE 90
[2024-03-09] MEDS: oxyCODONE 5 MG Tablet PO (22:53)
[2024-03-09] MEDS: Acetaminophen 500 MG Tablet 1000 MG PO (22:53)
[2024-03-09] MEDS: Metoprolol Tartrate 25 MG Tablet PO (22:53)
[2024-03-10] VITALS (8 sets, daily range): BP systolic 117–149; BP diastolic 55–79; PULSE 63–86; RESP 16–18; TEMP 36.4–37.3; O2SAT 89–99
[2024-03-10] MEDS: Acetaminophen 500 MG Tablet 1000 MG PO ×3 (04:55→21:15)
[2024-03-10] MEDS: Levothyroxine 75 MCG Tablet PO (04:55)
--- NOTE | 2024-03-10 07:18 | CT_ITS ---
STUDY: CT LEFT SHOULDER REASON FOR EXAM: Female, 83 years old. Humeral neck fracture -- Tournie protocol for surgical planning RADIATION DOSAGE (If Supplied By Facility): CTDIvol = ( 16.68 ) mGy, DLP = ( 380.74 ) mGycm TECHNIQUE: The patient was scanned in a multi detector CT scanner. High resolution transaxial imaging was performed without the administration of intravenous contrast material. Sagittal and coronal images were reconstructed. Individualized dose optimization techniques were used for this CT. COMPARISON: Left shoulder radiographs dated 03/09/2024. FINDINGS: There is an impacted fracture through the surgical neck of the left humerus with posterolateral angulation and 1.3 cm medial displacement. There is mild glenohumeral arthrosis with joint space narrowing and small marginal osteophyte formation. Intact glenoid rim, neck and visualized scapula. Normal coracoid process. Normal visualized lateral clavicle. There is mild hypertrophic acromioclavicular arthrosis. There is a Type II morphology (curved), with a neutral orientation. Normal visualized muscles and soft tissue structures. CT/Extremity Upper without Contra IMPRESSION: Impacted fracture through the surgical neck of the left humerus with posterolateral angulation and 1.3 cm medial displacement. Mild glenohumeral arthrosis and mild hypertrophic acromioclavicular arthrosis. Electronically Signed: Stephen Saunders MD at 8:25 EDT ,
[2024-03-10] MEDS: Budesonide Respules 0.5 MG/2 ML AMPUL.NEB. INHALATION ×2 (07:23→17:59)
[2024-03-10] MEDS: Ipratropium/Albuterol Sulfate 3 ML AMPUL.NEB INHALATION ×2 (07:23→17:59)
[2024-03-10] MEDS: Aspirin 81 MG TAB.CHEW PO (08:41)
[2024-03-10] MEDS: Metoprolol Tartrate 25 MG Tablet PO ×2 (08:41→21:15)
[2024-03-10] MEDS: Enoxaparin 40 MG/0.4 ML Syringe SC (08:41)
[2024-03-10] MEDS: Loratadine 10 MG Tablet PO (08:41)
--- NOTE | 2024-03-10 09:11 | PCM.PN.HOSP ---
Subjective Subjective Pain is controlled, no issues overnight Objective Data Objective Data Vital Signs: Vital Signs Temp Pulse Resp BP Pulse Ox O2 Del Method O2 Flow Rate 97.8 F 71 18 137/79 H 99 Room Air 2 03/10/24 08:56 03/10/24 08:56 03/10/24 08:56 03/10/24 08:56 03/10/24 08:56 03/10/24 08:56 03/10/24 07:24 Oxygen Flow Rate (L/min) 2 Oxygen Delivery Method Room Air Weight: 209 lb 7.026 oz Body Mass Index (BMI) 37.0 Intake & Output: Intake and Output for Last 24 Hours 03/09/24 03/10/24 03/11/24 03:59 03:59 03:59 Intake Total 100 / 100 200 / 200 Output Total 250 / 250 Balance 100 / 100 -50 / -50 Lab / Micro Data 03/09/24 21:34 03/09/24 21:34 Labs: Laboratory Results - last 24 hr 03/09/24 21:34: WBC 7.8, RBC 3.98 L, Hgb 12.2, Hct 38.1, MCV 95.7, MCH 30.7, MCHC 32.0, RDW Std Deviation 47.6 H, RDW Coeff of Stevie 13.5, Plt Count 201, MPV 9.4, Immature Gran % (Auto) 0.500, Neut % (Auto) 67.7, Lymph % (Auto) 22.3, [place] % (Auto) 7.4, Eos % (Auto) 1.5, Baso % (Auto) 0.6, Absolute Neuts (auto) 5.2, Absolute Lymphs (auto) 1.73, Nucleated RBC % 0, Sodium 141, Potassium 4.1, Chloride 109 H, Carbon Dioxide 28.0, Anion Gap 4 L, BUN 29 H, Creatinine 1.12 H, Estim Creat Clear Calc 42.23, Est GFR (MDRD) Af Amer 60, Est GFR (MDRD) Non-Af 50 L, BUN/Creatinine Ratio 25.9 H, Glucose 128 H, Calcium 9.3 Radiography Diagnostic Testing: Radiology Impression Shoulder X-Ray 03/09/24 19:40 IMPRESSION: Impacted comminuted left humeral neck fracture. Electronically Signed: Joel Dyer MD at 20:05 EDT , Brain CT 03/09/24 19:47 IMPRESSION: There are no acute findings. Electronically Signed: Joel Dyer MD at 20:44 EDT , Upper Extremity CT 03/10/24 07:18 IMPRESSION: Impacted fracture through the surgical neck of the left humerus with posterolateral angulation and 1.3 cm medial displacement. Mild glenohumeral arthrosis and mild hypertrophic acromioclavicular arthrosis. Electronically Signed: Stephen Saunders MD at 8:25 EDT , Physical Exam Narrative General: Alert, Oriented x3, Cooperative, No apparent distress HEENT: Atraumatic, PERRLA, EOMI, Normocephalic Oral: Moist Mucosa Neck: Supple, No JVD Lungs: Diminished, Normal air movement, No rhonchi, No wheeze, No rales Cardiovascular: Regular rate, Regular Rhythm, Normal S1, Normal S2, No murmurs Abdomen: Soft, Non Tender, Non-Distended, No Hepato-splenomegaly Extremities: No edema, Capillary Refill Less than 3 Seconds Skin: No rashes, No breakdown Musculoskeletal: Left arm tenderness to palpation, arm in sling Neurological: No focal neurological deficits, Motor Exam 5/5 strength throughout, Sensory exam intact to light touch and pain Psych/Mental Status: Normal Affect, Appropriate Assessment & Plan Assessment/Plan (1) Fall: (2) Closed fracture of left proximal humerus: PLAN: Plan 1. Mechanical fall with left humerus fracture, acute on chronic debility ?Obtain a CT scan without contrast at the direction of [facility] for surgical planning as an outpatient ? No plan for operation while inpatient ? She will likely need SNF placement as she ambulates at home alone with bilateral arm canes ? PT/OT ? Case management for disposition 2. Essential HTN ? Blood pressures are stable She can continue with her home metoprolol ? Will monitor make adjustments as necessary 3. Hypothyroidism ? Stable ? Continue with Synthroid 4. GERD ? Stable ? Continue with PPI 5. Anxiety/depression ? Stable ? Continue escitalopram 6. COPD ? Not in exacerbation ? Continue with her home inhalers DVT: Lovenox Charges/Coding Visit Charges Inpatient E&M: 57154 Subs Hosp L2
[2024-03-10] MEDS: oxyCODONE 5 MG Tablet PO (10:50)
--- NOTE | 2024-03-10 12:16 | CASEMGMT ---
Addendum entered by Kailey Castellanos 03/10/24 12:38: Social Work- TCU acceptance received. GENO Nieves Addendum entered by Kailey Castellanos 03/10/24 12:25: Social Work- Pt requested that daughter, Christina, be added to contacts. DARRICK added daughter in system. GENO Nieves Original Note: Social Work- SW met with pt and family who indicate their preference is TCU at d/c. Pt declines a SNF list. TCU referral made to [facility]. [facility] to remain available to meagan. GENO Nieves
--- NOTE | 2024-03-10 14:25 | CASEMGMT ---
SHERITA CM in to discuss DENG form with patient. RN CM explained DENG form, patient voiced understanding. Pt signed form and filed in chart. Pt provided with a copy of signed DENG form. Patient had no further questions or concerns at this time.
[2024-03-11] MEDS: oxyCODONE 5 MG Tablet PO ×2 (01:55→07:34)
[2024-03-11 02:00] VITALS: O2SAT 97
[2024-03-11 03:00] VITALS: BP 144/69; PULSE 79; RESP 17; TEMP 36.5; O2SAT 95
[2024-03-11] MEDS: Levothyroxine 75 MCG Tablet PO (05:13)
[2024-03-11] MEDS: Acetaminophen 500 MG Tablet 1000 MG PO ×2 (05:13→13:57)
[2024-03-11 06:43] LABS: Absolute Lymphocyte Count 1.46 X10^3/uL (0.83-4.51); Absolute Neutrophil Count 3.7 X10^3/uL (2.0-7.7); Basophil# 0.05 X10^3/uL; Basophil% 0.8 % (0-1); Eosinophil# 0.16 X10^3/uL; Eosinophils% 2.7 % (0-5); Hematocrit 35.9 % (37-47); Hemoglobin 11.5 g/dL (12.0-15.0); Lymphocyte # 1.46 X10^3/ul (0.83-4.51); Lymphocyte % 24.6 % (19-41); Mean Corpuscular Hgb 30.6 pg (27.0-32.0); Mean Corpuscular Volume 95.5 fL (81-99); Mean Platelet Vol. 9.9 fl (6.2-12.0); Monocyte# 0.53 X10^3/uL; Monocyte% 8.9 % (0-10); NRBC Flagged by Analyzer 0 % (0-5); Neutrophil # 3.71 X10^3/uL (2.7-7.7); Neutrophil % 62.5 % (47-70); Platelet Count 194 K/mm3 (150-450); RBC Distribution Width CV 13.8 % (11.6-14.6); RBC Distribution Width SD 48.3 fl (35.1-43.9); Red Blood Count 3.76 M/mm3 (4.2-5.4); White Blood Count 5.9 K/mm3 (4.4-11.0)
[2024-03-11 07:34] VITALS: PULSE 79; RESP 18; O2SAT 92
[2024-03-11] MEDS: Budesonide Respules 0.5 MG/2 ML AMPUL.NEB. INHALATION (07:34)
[2024-03-11] MEDS: Ipratropium/Albuterol Sulfate 3 ML AMPUL.NEB INHALATION (07:34)
[2024-03-11] MEDS: Metoprolol Tartrate 25 MG Tablet PO (07:34)
[2024-03-11] MEDS: Enoxaparin 40 MG/0.4 ML Syringe SC (07:35)
[2024-03-11] MEDS: Aspirin 81 MG TAB.CHEW PO (07:35)
[2024-03-11] MEDS: Loratadine 10 MG Tablet PO (07:35)
[2024-03-11 07:39] LABS: Anion Gap 5 (5-15); BUN 21 mg/dL (7-18); BUN/Creat Ratio 24.8 RATIO (10-20); Calcium,Total 8.7 mg/dL (8.5-10.1); Chloride 107 mmol/L (98-107); Creatinine, Serum 0.85 mg/dL (0.55-1.02); EST Glomerular Filtration Rate 68 mL/min (>60); Est Glom Filt Rate - Afr Amer 83 mL/min (>60); Glucose 102 mg/dL (74-106); Potassium 4.1 mmol/L (3.5-5.1); Sodium Level 139 mmol/L (136-145)
--- NOTE | 2024-03-11 08:10 | PCM.PN.HOSP ---
Subjective Subjective Doing well, no issues overnight. Oxycodone does help with pain relief Objective Data Objective Data Vital Signs: Vital Signs Temp Pulse Resp BP Pulse Ox O2 Del Method O2 Flow Rate 97.7 F L 79 17 144/69 H 95 Room Air 2 03/11/24 03:00 03/11/24 07:34 03/11/24 03:00 03/11/24 03:00 03/11/24 03:00 03/11/24 03:00 03/11/24 02:00 Oxygen Flow Rate (L/min) 2 Oxygen Delivery Method Room Air Weight: 209 lb 7.026 oz Body Mass Index (BMI) 37.0 Intake & Output: Intake and Output for Last 24 Hours 03/10/24 03/11/24 03/12/24 03:59 03:59 03:59 Intake Total 100 / 100 900 / 900 Output Total 850 / 850 500 / 500 Balance 100 / 100 50 / 50 -500 / -500 Lab / Micro Data 03/11/24 05:50 03/11/24 05:50 Labs: Laboratory Results - last 24 hr 03/11/24 05:50: WBC 5.9, RBC 3.76 L, Hgb 11.5 L, Hct 35.9 L, MCV 95.5, MCH 30.6, MCHC 32.0, RDW Std Deviation 48.3 H, RDW Coeff of Stevie 13.8, Plt Count 194, MPV 9.9, Immature Gran % (Auto) 0.500, Neut % (Auto) 62.5, Lymph % (Auto) 24.6, [place] % (Auto) 8.9, Eos % (Auto) 2.7, Baso % (Auto) 0.8, Absolute Neuts (auto) 3.7, Absolute Lymphs (auto) 1.46, Nucleated RBC % 0, Sodium 139, Potassium 4.1, Chloride 107, Carbon Dioxide 27.0, Anion Gap 5, BUN 21 H, Creatinine 0.85, Estim Creat Clear Calc 56.90, Est GFR (MDRD) Af Amer 83, Est GFR (MDRD) Non-Af 68, BUN/Creatinine Ratio 24.8 H, Glucose 102, Calcium 8.7 Radiography Diagnostic Testing: Radiology Impression Upper Extremity CT 03/10/24 07:18 IMPRESSION: Impacted fracture through the surgical neck of the left humerus with posterolateral angulation and 1.3 cm medial displacement. Mild glenohumeral arthrosis and mild hypertrophic acromioclavicular arthrosis. Electronically Signed: Stephen Saunders MD at 8:25 EDT , Physical Exam Narrative General: Alert, Oriented x3, Cooperative, No apparent distress HEENT: Atraumatic, PERRLA, EOMI, Normocephalic Oral: Moist Mucosa Neck: Supple, No JVD Lungs: Diminished, Normal air movement, No rhonchi, No wheeze, No rales Cardiovascular: Regular rate, Regular Rhythm, Normal S1, Normal S2, No murmurs Abdomen: Soft, Non Tender, Non-Distended, No Hepato-splenomegaly Extremities: No edema, Capillary Refill Less than 3 Seconds Skin: No rashes, No breakdown Musculoskeletal: Left arm tenderness to palpation, arm in sling Neurological: No focal neurological deficits, Motor Exam 5/5 strength throughout, Sensory exam intact to light touch and pain Psych/Mental Status: Normal Affect, Appropriate Assessment & Plan Assessment/Plan (1) Fall: (2) Closed fracture of left proximal humerus: PLAN: Plan 1. Mechanical fall with left humerus fracture, acute on chronic debility ? CT scan was obtained for surgical planning as an outpatient, she will need to follow-up with orthopedic surgery on discharge ? No plan for operation while inpatient ? Plan for discharge to TCU, awaiting pre-CERT ? PT/OT ? Case management for disposition 2. Essential HTN ? Blood pressures are stable ?She can continue with her home metoprolol ? Will monitor make adjustments as necessary 3. Hypothyroidism ? Stable ? Continue with Synthroid 4. GERD ? Stable ? Continue with PPI 5. Anxiety/depression ? Stable ? Continue escitalopram 6. COPD ? Not in exacerbation ? Continue with her home inhalers DVT: Lovenox Charges/Coding Visit Charges Inpatient E&M: 98882 Subs Hosp L2
[2024-03-11 08:27] VITALS: BP 119/70; PULSE 79; RESP 16; TEMP 36.7; O2SAT 94
--- NOTE | 2024-03-11 09:01 | PCM.TXEXTCAR ---
Diet Diet Order/Speech Therapy: 03/09/24 22:28 Diet: Regular - General Food consistency:: Regular Liquid Consistency:: Regular/Thin Routine Orders/Code Status Routine Lab Work: CBC and BMP Code Status: DNRCC-A Wound(s) Left jacobo: Wound Type: Skin Tear Left knee: Wound Type: Skin Tear Left arm: Wound Type: Skin Tear Therapies Extremity Affected:: Left Upper Physical Therapy: Eval and Treat Occupational Therapy: Eval and Treat Narrative: Keep LUE in sling Problem/Diagnosis (1) Fall: Status: Acute Code(s): W19.XXXA - Unspecified fall, initial encounter (2) Closed fracture of left proximal humerus: Status: Acute Code(s): S42.202A - Unspecified fracture of upper end of left humerus, initial encounter for closed fracture Plan 1. Mechanical fall with left humerus fracture, acute on chronic debility ? CT scan was obtained for surgical planning as an outpatient, she will need to follow-up with orthopedic surgery on discharge ? No plan for operation while inpatient ? Plan for discharge to TCU, awaiting pre-CERT ? PT/OT ? Case management for disposition 2. Essential HTN ? Blood pressures are stable ?She can continue with her home metoprolol ? Will monitor make adjustments as necessary 3. Hypothyroidism ? Stable ? Continue with Synthroid 4. GERD ? Stable ? Continue with PPI 5. Anxiety/depression ? Stable ? Continue escitalopram 6. COPD ? Not in exacerbation ? Continue with her home inhalers DVT: Lovenox Allergies/Procedures Done in Hospital Allergies Penicillins Allergy (Severe, Verified 08/16/23 13:09) facial swelling Procedures: None Type of Care/Length of Stay Estimated LOS: Convalescent Care Less Than 30 days Type of Care Needed: Skilled Rehab Potential: Good Prognosis: Good Additional Orders/Day of Discharge Day of Discharge: 03/11/24 Discharge Plan Admission Admit Date/Time: 03/09/24 21:37 Attending Provider: Pk Erickson Primary Care Provider: Rancho Knott Chi Consulting Providers: Dion Loza; Rene Pennington Discharge Orders/Prescriptions Prescriptions: New oxycodone 5 mg Tablet 5 mg PO Q4H PRN PRN (Reason: Pain Score 4-10) Qty: 0 0RF Continued levocetirizine 5 mg tablet 5 mg PO DAILY Trelegy Ellipta 100-62.5-25 mcg blister with device 1 inh inhalation DAILY metoprolol tartrate 25 mg tablet 25 mg PO BID Qty: 180 3RF levothyroxine 50 mcg tablet 75 mcg PO DAILY baclofen 10 mg tablet 10 mg PO QHS omeprazole 40 mg capsule,delayed release(DR/EC) 40 mg PO DAILY citalopram 20 mg tablet 20 mg PO DAILY hydrocodone-acetaminophen 5-325 mg tablet 1 tab PO TID PRN PRN (Reason: pain) aspirin 325 mg tablet,delayed release (DR/EC) 81 mg PO BID Referrals / Follow Up: Rene Pennington MD [Med Staff - Active Staff] - As soon as possible Rnacho Knott Chi, MD [Primary Care Provider] - Disposition Disposition (needs filled in before D/C Order can be placed): Care Home Facility
--- NOTE | 2024-03-11 09:21 | PCM.DC.SUM ---
Providers Date of Admission: 03/09/24 Primary Care Physician: Dr. Rancho Knott MD Consultations 03/10/24 02:15 Consult: Orthopedics Routine Consulting Provider: Rene Pennington Reason for Consult: left humeral neck fracture EMERGENT Consult: No MD Notified: Yes Date Notified: 03/10/24 Time Notified: 07:03 Method of Notification: Verbal Reason For Visit: MECHANICAL FALL W/ DEBILITY Diagnosis Discharge Diagnosis (1) Fall: Status: Acute Code(s): W19.XXXA - Unspecified fall, initial encounter (2) Closed fracture of left proximal humerus: Status: Acute Code(s): S42.202A - Unspecified fracture of upper end of left humerus, initial encounter for closed fracture Medications at Discharge Home Medications levocetirizine 5 mg tablet 5 mg PO DAILY ALLERGIES 04/06/20 levothyroxine 50 mcg tablet 75 mcg PO DAILY THYROID 06/21/22 aspirin 325 mg tablet,delayed release 81 mg PO BID Headache 12/27/22 fluticasone fur. 100 mcg-umeclid 62.5 mcg-vilant 25 mcg inhalat.powder (Trelegy Ellipta) 1 inh inhalation DAILY 12/27/22 metoprolol tartrate 25 mg tablet 25 mg PO BID #180 tabs 08/16/23 baclofen 10 mg tablet 10 mg PO QHS 03/09/24 citalopram 20 mg tablet 20 mg PO DAILY 03/09/24 hydrocodone-acetaminophen 5-325mg 5mg-325mg 1 tab PO TID PRN PRN pain 03/09/24 omeprazole 40 mg capsule,delayed release 40 mg PO DAILY 03/09/24 oxycodone 5 mg tablet 5 mg PO Q4H PRN PRN Pain Score 4-10 #0 tabs 03/11/24 Hospital Course Operations None Procedures None Summary of Care Provided Minutes Spent on Discharge: 35 Hospital Course: Per HPI: ALEJANDRA SHERMAN, is a 83 F who presented to [facility] ED on 03/09/2024 with left arm pain after a mechanical fall at home. Patient lives at home on her own. She typically uses 2 quad canes for ambulation, finds this easier than using a walker. She does also have a wheelchair at home but her house is not currently wheelchair accessible. Patient was ambulated from the kitchen to the living room and up a step today when her cane got stuck and she fell. States she struck her head against the door and knows the ground and also landed on the left shoulder. She then called EMS, who brought her to the ED. On arrival here, patient was reporting significant left arm and shoulder pain. Shoulder x-ray showed an impacted comminuted left femoral neck fracture. She was given a dose of IM morphine and placed in a sling, had moderate improvement in pain with the morphine. ED staff then tried to get her up to ambulate but she was unable to take a few steps on her own before needing to sit back down again. She notably follows with Dr. Forrester for chronic hip pain. ED physician recommended the patient be admitted for likely rehab placement, and hospitalist was contacted for admission. I saw the patient at the bedside in the ED, 2 other family members present. Patient was sitting up fairly comfortably in bed, conversing normally, no acute distress. She did notably have some facial swelling and some small scrapes and bruises on her arms and legs. She reported mild left arm and shoulder pain, improved from previous. Denied any other acute concerns at this time. Vitals in ED notable for mild hypertension, otherwise unremarkable. Labs were unremarkable. Left shoulder x-ray as noted above. CT brain was nonacute. Hospital Course: 1. Mechanical fall with left humerus fracture acute on chronic debility?83-year-old female presented to the hospital after mechanical fall with left arm pain. She was found to have a left humeral neck fracture. CT scan was obtained for possible outpatient surgical planning. In the meantime she was eval by physical therapy and since she walks with bilateral arm canes she will need physical therapy. She was accepted to the transitional care unit today and I discussed with her the plan for discharge she expressed understanding the risk benefits of going to the prison and would like to go today. She will need to follow-up with orthopedic surgery as an outpatient soon as possible for evaluation of possible surgery. 2. Essential hypertension, hypothyroidism, GERD, anxiety, depression, COPD are all chronic medical conditions which complicate her care. Her home medications were continued where appropriate Physical Exam Narrative General: Alert, Oriented x3, Cooperative, No apparent distress HEENT: Atraumatic, PERRLA, EOMI, Normocephalic Oral: Moist Mucosa Neck: Supple, No JVD Lungs: Diminished, Normal air movement, No rhonchi, No wheeze, No rales Cardiovascular: Regular rate, Regular Rhythm, Normal S1, Normal S2, No murmurs Abdomen: Soft, Non Tender, Non-Distended, No Hepato-splenomegaly Extremities: No edema, Capillary Refill Less than 3 Seconds Skin: No rashes, No breakdown Musculoskeletal: Left arm tenderness to palpation, arm in sling Neurological: No focal neurological deficits, Motor Exam 5/5 strength throughout, Sensory exam intact to light touch and pain Psych/Mental Status: Normal Affect, Appropriate Weight / BMI Weight Weight: 209 lb 7.026 oz Body Mass Index (BMI) 37.0 ABG / Lab / Microbiology Data 03/11/24 05:50 03/11/24 05:50 Laboratory: Laboratory Results - last 24 hr 03/11/24 05:50: WBC 5.9, RBC 3.76 L, Hgb 11.5 L, Hct 35.9 L, MCV 95.5, MCH 30.6, MCHC 32.0, RDW Std Deviation 48.3 H, RDW Coeff of Stevie 13.8, Plt Count 194, MPV 9.9, Immature Gran % (Auto) 0.500, Neut % (Auto) 62.5, Lymph % (Auto) 24.6, [place] % (Auto) 8.9, Eos % (Auto) 2.7, Baso % (Auto) 0.8, Absolute Neuts (auto) 3.7, Absolute Lymphs (auto) 1.46, Nucleated RBC % 0, Sodium 139, Potassium 4.1, Chloride 107, Carbon Dioxide 27.0, Anion Gap 5, BUN 21 H, Creatinine 0.85, Estim Creat Clear Calc 56.90, Est GFR (MDRD) Af Amer 83, Est GFR (MDRD) Non-Af 68, BUN/Creatinine Ratio 24.8 H, Glucose 102, Calcium 8.7 Meaningful Use Info Meaningful Use Meaningful Use Diagnoses (Choose all that apply): None applicable Ischemic Stroke Statin Dosing Therapy Reference: STATIN DOSE THERAPY REFERENCE: * Patients > 75 years receive moderate or high dose statin therapy. * Patients 75 years or YOUNGER should receive HIGH intensity statin dose unless contraindicated. You will be required to document reason for non-treatment if statin daily dose does not meet guidelines. HIGH DOSE STATIN THERAPY DAILY Atorvastatin > than or = to 40 mg Rosuvastatin > than or = to 20 mg Amlodipine + Atorvastatin > than or = to 2.5/40 mg Ezetimibe + Simvastatin 10/80 mg Simvastatin 80mg Discharge Plan Admission Admit Date/Time: 03/09/24 21:37 Attending Provider: Pk Erickson Primary Care Provider: Rancho Knott Chi Consulting Providers: Dion Loza; Rene Pennington Discharge Orders/Prescriptions Prescriptions: New oxycodone 5 mg Tablet 5 mg PO Q4H PRN PRN (Reason: Pain Score 4-10) Qty: 0 0RF Continued levocetirizine 5 mg tablet 5 mg PO DAILY Trelegy Ellipta 100-62.5-25 mcg blister with device 1 inh inhalation DAILY metoprolol tartrate 25 mg tablet 25 mg PO BID Qty: 180 3RF levothyroxine 50 mcg tablet 75 mcg PO DAILY baclofen 10 mg tablet 10 mg PO QHS omeprazole 40 mg capsule,delayed release(DR/EC) 40 mg PO DAILY citalopram 20 mg tablet 20 mg PO DAILY hydrocodone-acetaminophen 5-325 mg tablet 1 tab PO TID PRN PRN (Reason: pain) aspirin 325 mg tablet,delayed release (DR/EC) 81 mg PO BID Referrals / Follow Up: Rene Pennington MD [Med Staff - Active Staff] - As soon as possible Rancho Knott Chi, MD [Primary Care Provider] - Disposition Disposition (needs filled in before D/C Order can be placed): [facility] Facility Charges/Coding Visit Charges Inpatient E&M: 72431 Disch Hosp >30min
--- NOTE | 2024-03-11 10:04 | CASEMGMT ---
Social Work- SW met with pt to complete requested HCPOA. Pt names Cele, [id number] as HCPOA. Pt also requested contacts be updated. GENO Nieves
--- NOTE | 2024-03-11 10:06 | CASEMGMT ---
Social Work Precert has been obtained.? Physician updated and pt is ready for discharge today.?Discharge orders toTCU via fax. SW met with pt and they are agreeable to discharge plan as stated above.?Bedside nurse notified of discharge . Disposition:?TCU, skilled level of care under convalescent stay. GENO Nieves
[2024-03-11 11:16] VITALS: BP 113/68; PULSE 77; RESP 16; TEMP 36.6; O2SAT 92
--- NOTE | 2024-03-11 14:36 | CHAPLAIN ---
Type of Pastoral Visit _x__ Initial Visit ___ Follow-up Visit ___ On-call Visit ___ General Patient Visit ___ Spiritual Assessment ___ Family Conference ___ Bereavement ___ Rapid Response ___ Code Blue ___ Other (describe below) Pastoral Care Referral From _x__ Patient ___ Family ___ Nurse ___ Physician ___ Web Services Manager ___ Flower Grader ___ Other (describe below) Sacrament/Intervention _x__ Active listening ___ Anointing ___ Confucianism ___ Bereavement ___ Communion ___ Jyoti exploration ___ ___ Life review _x__ Prayer ___ Reconciliation ___ Sacrament of Sick _x__ Supportive presence ___ Wedding ___ Other (describe below) Pastoral Comments patient and her best friend are in the room; best friend is engaging in conversation as well; pt states her status and the plan of going to TCU for therapy; pt is given affirmation of the plan and the assurance of good care; pt states that she is handling this all pretty well but disappointed that it happened at all; pt welcomes a prayer and future visits in the TCU
== END 2024-03-11 14:35 ==
LOC: ED 20:00 → MS3 21:58
PROVIDERS: Admitting Provider Hospitalist; Emergency Provider Emergency Medicine; PCP Family Medicine Geriatric Medicine; Visit Provider Family Medicine
DX: S42.212A Unspecified displaced fracture of surgical neck of left humerus, initial encounter for closed fracture (principal); J44.9 Chronic obstructive pulmonary disease, unspecified; N18.30 Chronic kidney disease, stage 3 unspecified; S09.90XA Unspecified injury of head, initial encounter; F41.9 Anxiety disorder, unspecified; G89.29 Other chronic pain; Z79.890 Hormone replacement therapy; S80.12XA Contusion of left lower leg, initial encounter; S80.11XA Contusion of right lower leg, initial encounter; E66.9 Obesity, unspecified; R53.81 Other malaise; M16.12 Unilateral primary osteoarthritis, left hip; F32.A Depression, unspecified; Z68.37 Body mass index [BMI] 37.0-37.9, adult; E03.9 Hypothyroidism, unspecified; K21.9 Gastro-esophageal reflux disease without esophagitis; Z87.891 Personal history of nicotine dependence; Z79.51 Long term (current) use of inhaled steroids; I12.9 Hypertensive chronic kidney disease with stage 1 through stage 4 chronic kidney disease, or unspecified chronic kidney disease; G47.33 Obstructive sleep apnea (adult) (pediatric); W10.9XXA Fall (on) (from) unspecified stairs and steps, initial encounter; Y93.01 Activity, walking, marching and hiking; Y92.000 Kitchen of unspecified non-institutional (private) residence as the place of occurrence of the external cause; Z79.899 Other long term (current) drug therapy; Z86.718 Personal history of other venous thrombosis and embolism
CPT/HCPCS: 36415; 70450; 73030; 73200; 80048; 85025; 94640; 94668; 96372; 97162; 97166; 99221; 99285; A4216; G0378

== ENCOUNTER 2024-03-11 14:41 | Inpatient (IN) | payer MEDICARE, SELFPAY ==
[2024-03-11 15:03] VITALS: BP 136/61; PULSE 84; RESP 16; RESP 17; TEMP 37.1; O2SAT 91; BMI 37.5
[2024-03-11] MEDS: Ensure Plus High Protein 120 ML LIQUID PO (17:49)
[2024-03-11] MEDS: Acetaminophen 500 MG Tablet 1000 MG PO (17:51)
[2024-03-11] MEDS: Nystatin Powder 15gm Bottle 1 APPLIC TOPICAL (20:13)
[2024-03-11 20:16] VITALS: BP 147/69; PULSE 85
[2024-03-11] MEDS: Aspirin E.C. 81 MG Tablet PO (20:16)
[2024-03-11] MEDS: Fluticasone/Salmeterol 232-14 Inhaler 1 PUFF INHALATION (20:16)
[2024-03-11] MEDS: Metoprolol Tartrate 25 MG Tablet PO (20:16)
[2024-03-11] MEDS: Baclofen 10 MG Tablet PO (20:17)
[2024-03-11] MEDS: oxyCODONE 5 MG Tablet PO (20:27)
[2024-03-11 20:32] VITALS: BP 147/69; PULSE 85
--- NOTE | 2024-03-11 21:17 | HP.PCM_ITS ---
HPI - General General Date of Admission: 03/11/24 Date of Service: 03/11/24 Chief Complaint: Here for rehabilitation. HPI Narrative 03/09/2024 ALEJANDRA SHERMAN, is a 83 Female who presents to [facility] ED with fall. Tripped over cane, fell at home. Hit head, hit nose, landed on left shoulder with pain, limited range of motion. No loss of consciousness. CT brain negative. X-ray showed left humerus fracture, left upper extremity sling applied. Unable to care for self at home. 03/09/2024 Admit [facility]. PT/OT, suspect nonoperative management, sling, pain control for left humerus fracture. She usually walks with 2 quad canes. 03/10/2024 Pain controlled. Ortho recommended non contrast CT left humerus. PT/OT SNF. 03/11/2024 Doing well, oxycodone helps with pain. No paln for surgery while inpatient. Pre-CERT for TCU. 03/11/2024 Admit to TCU with debility, here for rehabilitation, strengthening, prior to discharge home with . [facility] Medical History (Updated 03/11/24 @ 21:[address] Rancho Knott MD) Hx of deep venous thrombosis Benign essential HTN Anxiety GERD (gastroesophageal reflux disease) CPAP (continuous positive airway pressure) dependence Sleep apnea Migraines Hypothyroidism History of asthma History of COPD History of arthritis History of Right Foot Fracture Home Medications ?Medication ?Instructions ?Recorded ?Last Taken ?Type levocetirizine 5 mg tablet 5 mg PO DAILY ALLERGIES 04/06/20 03/25/21 History levothyroxine 50 mcg tablet 75 mcg PO DAILY THYROID 06/21/22 Unknown History aspirin 325 mg tablet,delayed 81 mg PO BID Headache 12/27/22 Unknown History release fluticasone fur. 100 mcg-umeclid 1 inh inhalation DAILY asthma 12/27/22 Unknown History 62.5 mcg-vilant 25 mcg inhalat.powder (Trelegy Ellipta) metoprolol tartrate 25 mg tablet 25 mg PO BID BP #180 tabs 08/16/23 Unknown Rx baclofen 10 mg tablet 10 mg PO QHS muscle relaxer 03/09/24 Unknown History citalopram 20 mg tablet 20 mg PO DAILY antidepressant 03/09/24 Unknown History hydrocodone-acetaminophen 5-325mg 1 tab PO TID PRN PRN pain 03/09/24 Unknown History 5mg-325mg omeprazole 40 mg capsule,delayed 40 mg PO DAILY acid reflux 03/09/24 Unknown History release oxycodone 5 mg tablet 5 mg PO Q4H PRN PRN Pain Score 03/11/24 Unknown Rx 4-10 #0 tabs Allergy/AdvReac Type Severity Reaction Status Date / Time Penicillins Allergy Severe facial Verified 08/16/23 13:09 swelling Surgical History History of foot surgery H/O cataract removal with insertion of prosthetic lens Hx of tubal ligation S/P foot surgery, right History of appendectomy History of cholecystectomy Social History (Updated 03/11/24 @ 21:[address] Rancho Knott MD) household members: spouse Smoking Status: Former smoker alcohol intake: never substance use type: does not use ROS Constitutional Constitutional: Reports weakness; Denies chills, fever(s) or weight gain ENT HEENT: Denies headache(s), nasal congestion or nasal discharge Cardiovascular Cardiovascular: Denies chest pain or palpitations Respiratory/Chest Respiratory/Chest: Denies cough, excessive phlegm production or shortness of breath with exertion Gastrointestinal Gastrointestinal: Denies abdominal pain, nausea or vomiting Genitourinary Genitourinary: Denies dysuria Musculoskeletal Musculoskeletal: Reports joint pain and other Details: Left shoulder pain. ; Denies joint swelling Integumentary Integumentary: Denies rash or wounds Neurologic Neurologic: Denies focal weakness, numbness or tingling Psychiatric Psychiatric: Denies anxiety, auditory hallucinations, depression, homicidal ideation or suicidal ideation Vital Signs Vital Signs Vital Signs: 03/11/24 15:03 03/11/24 15:03 03/11/24 20:16 Temperature 98.7 F Temperature Source Temporal Pulse Rate 84 85 Pulse Rhythm Regular Pulse Strength Normal (2+) Respiratory Rate 16 17 Respiratory Effort Normal Non-Labored Respiratory Depth Normal Respiratory Pattern Normal Blood Pressure 136/61 H 147/69 H Blood Pressure Mean 86 Blood Pressure Source Monitor Blood Pressure Position Semi-Fowlers Blood Pressure Location Right Forearm Pulse Ox 91 Oxygen Delivery Method Room Air Room Air 03/11/24 20:32 Temperature Temperature Source Pulse Rate 85 Pulse Rhythm Pulse Strength Respiratory Rate Respiratory Effort Respiratory Depth Respiratory Pattern Blood Pressure 147/69 H Blood Pressure Mean 95 Blood Pressure Source Monitor Blood Pressure Position Semi-Fowlers Blood Pressure Location Right Arm Pulse Ox Oxygen Delivery Method Weight Weight: 96.116 kg Body Mass Index (BMI) 37.5 Physical Exam Const alert General Appearance: cooperative HEENT normocephalic Eyes PERRL and EOMs intact bilaterally Neck supple, no JVD and no carotid bruits Resp normal respiratory effort, normal air movement and clear to auscultation bilaterally Cardio regular rate and regular rhythm GI normal to inspection, nondistended, normoactive bowel sounds, non-tender and non-distended Extremity normal capillary refill Extremity Narrative: Left upper extremity sling. General Extremity: Negative for edema Skin no rashes or lesions noted General Skin Exam: no breakdown Psych affect normal Appearance: appropriate Assessment & Plan Assessment/Plan (1) Debility: (2) Fall: (3) Closed left humeral fracture: (4) Closed fracture of left proximal humerus: (5) Allergic rhinitis: (6) Hypothyroidism: (7) Essential (primary) hypertension: (8) Sleep apnea: (9) COPD (chronic obstructive pulmonary disease): PLAN: Plan 83 year old female with below past medical history hospitalized for fall, left humerus fracture, treated non-operatively, admitted to TCU with debility, here for rehabilitation, strengthening, prior to discharge home with . * Debility - PT/OT. * Pain - Tylenol 1000mg q8, Tramadol 50mg q6 prn pain (1-5), Oxycodone 5mg q4 prn pain (6-10). * Bowel - Senna/colace 2 tablets bid, Magnesium citrate 300ml daily prn. * Adult immunization - Administer pneumonia vaccine, covid vaccine, flu vaccine as appropriate. * DVT prophylaxis - Aspirin 81mg bid. * Muscle spasm - Baclofen 10mg qhs. * Depression - Citalopram 20mg daily, stable chronic custodial use, GDR not recommended. * Nutrition - Ensure Plus 120ml tidcm. * COPD - Fluticasone/salmeterol 1 puff bid, Incruse 1 puff daily. * Hypothyroidism - Levothyroxine 75mcg daily. * Allergic rhinitis - Loratadine 10mg daily. * Hypertension - Metoprolol 25mg bid. * Tinea Corporis - Nystatin powder topical bid. * GERD - Pantoprazole 40mg daily.
[2024-03-12] MEDS: Levothyroxine 75 MCG Tablet PO (05:05)
[2024-03-12] MEDS: Acetaminophen 500 MG Tablet 1000 MG PO ×3 (05:05→20:14)
--- NOTE | 2024-03-12 08:24 | PCM.PN.DRR ---
Documented by User: Milagros Castillo 03/12/24 08:50 TCU RX Drug Regimen Review Subjective/Objective Subjective/Objective: Subjective: TCU Admission. 83 YOF presented to the ER with a fall. Hospitalized for fall, left humerus fracture, treated non-operatively. Admitted to TCU with debility for strengthening and rehabilitation. Objective: Allergies Penicillins Allergy (Severe, Verified 08/16/23 13:09) facial swelling Current Medications Generic Name Dose Route Start Last Admin Trade Name Freq PRN Reason Stop Dose Admin Acetaminophen 1,000 mg 03/11/24 18:00 03/12/24 05:05 Acetaminophen 500 Mg Tablet PO 1,000 mg Q8 WHIT Administration Aspirin 81 mg 03/11/24 22:00 03/11/24 20:16 Aspirin E.C. 81 Mg Tablet PO 81 mg BID WHIT Administration Baclofen 10 mg 03/11/24 22:00 03/11/24 20:17 Baclofen 10 Mg Tablet PO 10 mg QHS WHIT Administration Citalopram Hydrobromide 20 mg 03/12/24 10:00 Citalopram 20 Mg Tablet PO DAILY WHIT Levothyroxine Sodium 75 mcg 03/12/24 06:00 03/12/24 05:05 Levothyroxine 75 Mcg Tablet PO 75 mcg DAILY@0600 WHIT Administration Loratadine 10 mg 03/12/24 10:00 Loratadine 10 Mg Tablet PO DAILY WHIT Magnesium Citrate 300 ml 03/11/24 17:12 Magnesium Citrate 300 Ml PO DAILY PRN Constipation Metoprolol Tartrate 25 mg 03/11/24 22:00 03/11/24 20:16 Metoprolol Tartrate 25 Mg Tablet PO 25 mg BID [facility] Administration Protocol Nutritional Formula (Lactose Free) 120 ml 03/11/24 17:45 03/11/24 17:49 Ensure Plus High Protein 120 Ml Liquid PO 120 ml TIDCM WHIT Administration Nystatin 1 applic 03/11/24 22:00 03/11/24 20:13 Nystatin Powder 15gm Bottle TOPICAL 1 applic BID [facility] Administration Protocol Oxycodone HCl 5 mg 03/11/24 15:25 03/11/24 20:27 Oxycodone 5 Mg Tablet PO 5 mg Q4H PRN PRN Administration Pain Score 6-10 or Pre PT/OT Pantoprazole Sodium 40 mg 03/12/24 10:00 Pantoprazole Sodium 40 Mg Tablet PO DAILY WHIT Fluticasone/Salmeterol 1 puff 03/11/24 22:00 03/11/24 20:16 Fluticasone/Salmeterol 232-14 Inhaler INHALATION 1 puff BID [facility] Administration Senna/Docusate Sodium 2 tablet 03/11/24 22:00 03/11/24 20:23 Senna/Docusate Sodium 1 Tablet PO Not Given BID [facility] Sodium Chloride 10 - 40 ml 03/11/24 15:10 0.9% Saline Lock 10 Ml Syringe IV UD PRN SALINE FLUSH Tramadol HCl 50 mg 03/11/24 17:14 Tramadol 50 Mg Tablet PO Q6H PRN PRN Pain Score 1-5 or Pre PT/OT Tuberculin PPD 0.1 ml 03/12/24 10:00 Tuberculin,Purif.Prot.Deriv. 50 Tu/Ml Vial ID 03/12/24 10:01 X1 ONE Tuberculin PPD 0.1 ml 03/19/24 10:00 Tuberculin,Purif.Prot.Deriv. 50 Tu/Ml Vial ID 03/19/24 10:01 X1 ONE Umeclidinium Evergreen 1 puff 03/12/24 10:00 Umeclidinium Evergreen Inhaler INHALATION DAILY [facility] Problem List COPD (chronic obstructive pulmonary disease) (Chronic) Sleep apnea (Acute) Essential (primary) hypertension (Acute) Allergic rhinitis (Acute) Closed left humeral fracture (Acute) Debility (Acute) Closed fracture of left proximal humerus (Acute) Fall (Acute) Hypothyroidism (Chronic) Vital Signs Temp Pulse Resp BP Pulse Ox O2 Del Method 98.7 F 85 16 147/69 H 91 Room Air 03/11/24 15:03 03/11/24 20:32 03/11/24 15:03 03/11/24 20:32 03/11/24 15:03 03/11/24 15:03 Oxygen Delivery Method Room Air Weight: 96.116 kg Body Mass Index (BMI) 37.5 Assessment/Plan: 1. Pain: acetaminophen 1000mg PO Q8, tramadol 50mg PO Q6H PRN pain 1-5 and oxycodone 5mg PO Q4H PRN pain 6-10. Resident has had 1 dose of oxycodone for a pain score of 9 in the hip/arm. Please continue to monitor for increased pain, PRN usage, constipation, respiratory depression and renal function. 2. Bowel: senna/docusate 2T PO BID and magnesium citrate 300mL PO daily PRN constipation. Please continue to monitor for constipation and PRN usage. Last documented bowel movement was today. 3. DVT prophylaxis: aspirin 81mg PO BID. Unclear why patient is taking BID, home medication list says for headache. Please consider decreasing to once daily to prevent risk of bleeding if clinically appropriate. Thanks. Please continue to monitor for S/S of bleeding/DVT and hemoglobin (last 11.5g/dL). 4. Muscle spams: baclofen 10mg PO QHS. Please continue to monitor for hypotonia, dizziness and confusion. 5. Hypothyroidism: levothyroxine 75mcg PO daily. Please continue to monitor TSH (last 02/21/24) and S/S of hypo/hyperthyroidism. 6. Hypertension: metoprolol tartrate 25mg PO BID. Please continue to monitor BP (last 147/69) and HR (last 85). 7. GERD: pantoprazole 40mg PO daily. Please continue to monitor for S/S of GERD and diarrhea (BEERs medication). 8. COPD: fluticasone/salmeterol 232/14mcg 1puff BID and umeclidinium 1puff daily. Please continue to monitor HR, shortness of breath and thrush. Please rinse mouth with water and spit following fluticasone/salmeterol administration to prevent thrush. 9. Allergic rhinitis: loratadine 10mg PO daily. Please continue to monitor for S/S of allergies and renal function. 10. Tinea Corporis: Nystatin powder topical bid. Assessment/Plan for indications treated with psychotropic medications: 1. Depression: citalopram 20mg PO daily. Please see physician note regarding GDR. Please continue to monitor for suicidal ideation (black box warning), falls/fractures (BEERs medication) and sodium (last 139mmol/L). Medical chart and medication regimen reviewed. The following medication irregularities or issues were identified: 1. Aspirin 81mg PO BID. Unclear why patient is taking BID, home medication list says for headache. Please consider decreasing to once daily to prevent risk of bleeding if clinically appropriate. Thanks. Date Date of Note:: 03/12/24 Documented by User: Dr. Rancho Knott MD 03/12/24 08:53 TCU RX Drug Regimen Review Provider Comments Provider responsibility Provider Comments to Recommendations by Pharmacy: Agree
[2024-03-12] MEDS: Loratadine 10 MG Tablet PO (08:30)
[2024-03-12] MEDS: Aspirin E.C. 81 MG Tablet PO (08:30)
[2024-03-12] MEDS: Citalopram 20 MG Tablet PO (08:30)
[2024-03-12] MEDS: Nystatin Powder 15gm Bottle 1 APPLIC TOPICAL ×2 (08:31→20:13)
[2024-03-12] MEDS: Fluticasone/Salmeterol 232-14 Inhaler 1 PUFF INHALATION ×2 (08:31→20:10)
[2024-03-12] MEDS: Umeclidinium Bromide Inhaler 1 PUFF INHALATION (08:31)
[2024-03-12] MEDS: Senna/Docusate Sodium 1 Tablet 2 TABLET PO ×2 (08:31→20:12)
[2024-03-12] MEDS: Pantoprazole Sodium 40 MG Tablet PO (08:31)
[2024-03-12] MEDS: Ensure Plus High Protein 120 ML LIQUID PO ×3 (08:35→17:34)
[2024-03-12 08:39] VITALS: PULSE 103
[2024-03-12] MEDS: Metoprolol Tartrate 25 MG Tablet PO ×2 (08:39→20:11)
--- NOTE | 2024-03-12 09:52 | NURSING ---
Pt. and family updated on new positive covid case on the unit.
[2024-03-12] MEDS: Tuberculin,Purif.prot.deriv. 50 TU/ML Vial 0.1 ML ID (10:10)
[2024-03-12 11:02] VITALS: BP 138/69; PULSE 103; RESP 18; TEMP 36.8; O2SAT 93
[2024-03-12] MEDS: oxyCODONE 5 MG Tablet PO ×2 (14:38→20:17)
--- NOTE | 2024-03-12 14:50 | NURSING ---
Mixing Machine Feeder Note; Activity Asset: Milton Archibald is independent in her choice of independent activities. When at home she quilts and sews. She will watch tv, read visit with family, welcomes visits w/warehouse analyst and therapy dog when available. Staff will encourage social activities, reminded her of weekly activities and respect her right to say no.
--- NOTE | 2024-03-12 15:40 | CASEMGMT ---
Social Work DARRICK met with pt and introduced self and role of SW. Initial assessment completed. Pt has a living will and HCPOA on file naming her grand dgt in law Cele Villa. Pt confirms she wishes to be DNRCCA, nursing updated. SW educated pt to [employer] with NRD of 03/13 and that continued stay is not guaranteed. Pt was independent prior to fall and humerus fracture and plans to return home with her at time of discharge. Pt inquiring about Ramp installation for her home. DARRICK provided pt with a list of companies who can install Ramps. DARRICK will continue to follow for dc planning and support. GENO Brown
[2024-03-12 20:09] VITALS: BP 147/64; PULSE 84
[2024-03-12 20:11] VITALS: BP 147/64; PULSE 84
[2024-03-12] MEDS: Baclofen 10 MG Tablet PO (20:11)
[2024-03-13] MEDS: Levothyroxine 75 MCG Tablet PO (06:00)
[2024-03-13] MEDS: Acetaminophen 500 MG Tablet 1000 MG PO ×3 (06:00→20:37)
[2024-03-13 08:08] LABS: Absolute Lymphocyte Count 1.26 X10^3/uL (0.83-4.51); Absolute Neutrophil Count 3.6 X10^3/uL (2.0-7.7); Basophil# 0.04 X10^3/uL; Basophil% 0.7 % (0-1); Eosinophil# 0.19 X10^3/uL; Eosinophils% 3.4 % (0-5); Hematocrit 38.3 % (37-47); Hemoglobin 12.3 g/dL (12.0-15.0); Lymphocyte # 1.26 X10^3/ul (0.83-4.51); Lymphocyte % 22.9 % (19-41); Mean Corp Hgb Conc 32.1 g/dL (32-36); Mean Corpuscular Hgb 30.4 pg (27.0-32.0); Mean Corpuscular Volume 94.8 fL (81-99); Mean Platelet Vol. 9.6 fl (6.2-12.0); Monocyte# 0.42 X10^3/uL; Monocyte% 7.6 % (0-10); NRBC Flagged by Analyzer 0 % (0-5); Neutrophil # 3.57 X10^3/uL (2.7-7.7); Neutrophil % 64.9 % (47-70); Platelet Count 212 K/mm3 (150-450); RBC Distribution Width CV 13.6 % (11.6-14.6); RBC Distribution Width SD 47.2 fl (35.1-43.9); Red Blood Count 4.04 M/mm3 (4.2-5.4); White Blood Count 5.5 K/mm3 (4.4-11.0)
[2024-03-13 08:19] LABS: Anion Gap 4 (5-15); BUN 19 mg/dL (7-18); BUN/Creat Ratio 21.7 RATIO (10-20); Calcium,Total 9.1 mg/dL (8.5-10.1); Chloride 106 mmol/L (98-107); Creatinine, Serum 0.87 mg/dL (0.55-1.02); EST Glomerular Filtration Rate 66 mL/min (>60); Est Glom Filt Rate - Afr Amer 80 mL/min (>60); Estimated Creatinine Clearance 55.95 ml/min; Glucose 116 mg/dL (74-106); Potassium 3.9 mmol/L (3.5-5.1); Sodium Level 138 mmol/L (136-145)
[2024-03-13] MEDS: Ensure Plus High Protein 120 ML LIQUID PO ×3 (08:26→17:40)
[2024-03-13] MEDS: Aspirin E.C. 81 MG Tablet PO (08:26)
[2024-03-13] MEDS: Citalopram 20 MG Tablet PO (08:27)
[2024-03-13 08:28] VITALS: BP 151/74; PULSE 89
[2024-03-13] MEDS: Pantoprazole Sodium 40 MG Tablet PO (08:28)
[2024-03-13] MEDS: Metoprolol Tartrate 25 MG Tablet PO ×2 (08:28→20:36)
[2024-03-13] MEDS: Loratadine 10 MG Tablet PO (08:28)
[2024-03-13] MEDS: Fluticasone/Salmeterol 232-14 Inhaler 1 PUFF INHALATION ×2 (08:29→20:28)
[2024-03-13] MEDS: Umeclidinium Bromide Inhaler 1 PUFF INHALATION (08:29)
[2024-03-13] MEDS: Nystatin Powder 15gm Bottle 1 APPLIC TOPICAL ×2 (08:29→20:30)
[2024-03-13] MEDS: oxyCODONE 5 MG Tablet PO ×2 (08:33→17:40)
[2024-03-13 08:37] VITALS: BP 151/74; PULSE 89
[2024-03-13 11:15] VITALS: PULSE 75; RESP 18; O2SAT 90
[2024-03-13 16:00] VITALS: BP 132/69; PULSE 78; RESP 16; TEMP 36.3; O2SAT 92
[2024-03-13 20:36] VITALS: BP 139/71; PULSE 86
[2024-03-13] MEDS: Baclofen 10 MG Tablet PO (20:36)
[2024-03-13] MEDS: Senna/Docusate Sodium 1 Tablet 2 TABLET PO (20:38)
[2024-03-13 20:47] VITALS: BP 139/71; PULSE 86
[2024-03-14] MEDS: oxyCODONE 5 MG Tablet PO ×3 (01:00→21:47)
[2024-03-14] MEDS: Levothyroxine 75 MCG Tablet PO (05:42)
[2024-03-14] MEDS: Acetaminophen 500 MG Tablet 1000 MG PO ×3 (05:42→21:42)
[2024-03-14] MEDS: Fluticasone/Salmeterol 232-14 Inhaler 1 PUFF INHALATION ×2 (08:27→21:41)
[2024-03-14] MEDS: Umeclidinium Bromide Inhaler 1 PUFF INHALATION (08:27)
[2024-03-14] MEDS: Citalopram 20 MG Tablet PO (08:28)
[2024-03-14] MEDS: Aspirin E.C. 81 MG Tablet PO (08:28)
[2024-03-14 08:29] VITALS: BP 138/75; PULSE 87
[2024-03-14] MEDS: Pantoprazole Sodium 40 MG Tablet PO (08:29)
[2024-03-14] MEDS: Metoprolol Tartrate 25 MG Tablet PO ×2 (08:29→21:42)
[2024-03-14] MEDS: Loratadine 10 MG Tablet PO (08:29)
[2024-03-14] MEDS: Senna/Docusate Sodium 1 Tablet 2 TABLET PO ×2 (08:29→21:42)
[2024-03-14] MEDS: Nystatin Powder 15gm Bottle 1 APPLIC TOPICAL ×2 (08:30→21:43)
[2024-03-14] MEDS: Ensure Plus High Protein 120 ML LIQUID PO ×3 (08:35→17:47)
[2024-03-14 08:39] VITALS: BP 138/75; PULSE 87; O2SAT 92
[2024-03-14] MEDS: traMADol 50 MG Tablet PO (14:20)
[2024-03-14 15:25] VITALS: BP 140/63; PULSE 80; RESP 14; TEMP 36.1; O2SAT 92
[2024-03-14 15:45] VITALS: PULSE 62; RESP 18; O2SAT 90
[2024-03-14 21:42] VITALS: BP 144/63; PULSE 86
[2024-03-14] MEDS: Baclofen 10 MG Tablet PO (21:42)
[2024-03-15] MEDS: Ensure Plus High Protein 120 ML LIQUID PO ×3 (06:15→17:09)
[2024-03-15] MEDS: Acetaminophen 500 MG Tablet 1000 MG PO ×3 (06:15→20:52)
[2024-03-15] MEDS: Levothyroxine 75 MCG Tablet PO (06:15)
[2024-03-15] MEDS: Senna/Docusate Sodium 1 Tablet 2 TABLET PO (07:36)
[2024-03-15] MEDS: Citalopram 20 MG Tablet PO (07:36)
[2024-03-15] MEDS: Loratadine 10 MG Tablet PO (07:36)
[2024-03-15] MEDS: Fluticasone/Salmeterol 232-14 Inhaler 1 PUFF INHALATION ×2 (07:36→20:49)
[2024-03-15] MEDS: Umeclidinium Bromide Inhaler 1 PUFF INHALATION (07:36)
[2024-03-15] MEDS: Nystatin Powder 15gm Bottle 1 APPLIC TOPICAL ×2 (07:36→20:51)
[2024-03-15] MEDS: Aspirin E.C. 81 MG Tablet PO (07:36)
[2024-03-15] MEDS: Pantoprazole Sodium 40 MG Tablet PO (07:36)
[2024-03-15 07:37] VITALS: PULSE 89
[2024-03-15] MEDS: oxyCODONE 5 MG Tablet PO ×2 (07:37→20:56)
[2024-03-15] MEDS: Metoprolol Tartrate 25 MG Tablet PO ×2 (07:37→20:50)
[2024-03-15 10:20] VITALS: BP 107/63; PULSE 89; RESP 18; TEMP 36.2; O2SAT 95
[2024-03-15 20:50] VITALS: BP 152/79; PULSE 99
[2024-03-15] MEDS: Baclofen 10 MG Tablet PO (20:50)
[2024-03-15 20:58] VITALS: BP 152/79; PULSE 99
[2024-03-16] MEDS: Levothyroxine 75 MCG Tablet PO (05:28)
[2024-03-16] MEDS: Acetaminophen 500 MG Tablet 1000 MG PO ×3 (05:29→21:55)
[2024-03-16 08:08] VITALS: BP 122/76; PULSE 83; RESP 18; TEMP 36.3; O2SAT 94
[2024-03-16] MEDS: oxyCODONE 5 MG Tablet PO ×3 (08:09→22:00)
[2024-03-16] MEDS: Aspirin E.C. 81 MG Tablet PO (08:09)
[2024-03-16 08:10] VITALS: PULSE 83
[2024-03-16] MEDS: Senna/Docusate Sodium 1 Tablet 2 TABLET PO ×2 (08:10→21:55)
[2024-03-16] MEDS: Pantoprazole Sodium 40 MG Tablet PO (08:10)
[2024-03-16] MEDS: Citalopram 20 MG Tablet PO (08:10)
[2024-03-16] MEDS: Metoprolol Tartrate 25 MG Tablet PO ×2 (08:10→21:56)
[2024-03-16] MEDS: Fluticasone/Salmeterol 232-14 Inhaler 1 PUFF INHALATION ×2 (08:11→21:53)
[2024-03-16] MEDS: Loratadine 10 MG Tablet PO (08:11)
[2024-03-16] MEDS: Ensure Plus High Protein 120 ML LIQUID PO ×3 (08:11→17:56)
[2024-03-16] MEDS: Nystatin Powder 15gm Bottle 1 APPLIC TOPICAL ×2 (08:11→21:55)
[2024-03-16] MEDS: Umeclidinium Bromide Inhaler 1 PUFF INHALATION (08:13)
[2024-03-16] MEDS: traMADol 50 MG Tablet PO (13:04)
[2024-03-16 21:56] VITALS: BP 133/68; PULSE 90
[2024-03-16] MEDS: Baclofen 10 MG Tablet PO (21:56)
[2024-03-16 22:03] VITALS: BP 133/68; PULSE 90
[2024-03-17] MEDS: Levothyroxine 75 MCG Tablet PO (05:53)
[2024-03-17] MEDS: Acetaminophen 500 MG Tablet 1000 MG PO ×3 (05:54→21:17)
[2024-03-17] MEDS: Ensure Plus High Protein 120 ML LIQUID PO ×3 (07:57→17:29)
[2024-03-17] MEDS: oxyCODONE 5 MG Tablet PO ×3 (08:01→21:17)
[2024-03-17] MEDS: Fluticasone/Salmeterol 232-14 Inhaler 1 PUFF INHALATION ×2 (08:02→21:17)
[2024-03-17] MEDS: Umeclidinium Bromide Inhaler 1 PUFF INHALATION (08:02)
[2024-03-17 08:05] VITALS: BP 129/66; PULSE 87
[2024-03-17] MEDS: Citalopram 20 MG Tablet PO (08:05)
[2024-03-17] MEDS: Metoprolol Tartrate 25 MG Tablet PO ×2 (08:05→21:17)
[2024-03-17] MEDS: Aspirin E.C. 81 MG Tablet PO (08:05)
[2024-03-17] MEDS: Pantoprazole Sodium 40 MG Tablet PO (08:05)
[2024-03-17] MEDS: Loratadine 10 MG Tablet PO (08:06)
[2024-03-17] MEDS: Senna/Docusate Sodium 1 Tablet 2 TABLET PO ×2 (08:06→21:17)
[2024-03-17] MEDS: Nystatin Powder 15gm Bottle 1 APPLIC TOPICAL ×2 (08:08→21:17)
[2024-03-17 08:12] VITALS: BP 129/66; PULSE 87
[2024-03-17 16:00] VITALS: BP 124/63; PULSE 78; RESP 16; TEMP 36; O2SAT 94
[2024-03-17 21:13] VITALS: BP 150/70; PULSE 90
[2024-03-17 21:17] VITALS: BP 150/70; PULSE 90
[2024-03-17] MEDS: Baclofen 10 MG Tablet PO (21:17)
[2024-03-18] MEDS: Levothyroxine 75 MCG Tablet PO (05:28)
[2024-03-18] MEDS: Acetaminophen 500 MG Tablet 1000 MG PO ×3 (05:28→21:26)
[2024-03-18 06:13] LABS: Absolute Lymphocyte Count 1.88 X10^3/uL (0.83-4.51); Absolute Neutrophil Count 2.7 X10^3/uL (2.0-7.7); Basophil# 0.04 X10^3/uL; Basophil% 0.7 % (0-1); Eosinophil# 0.15 X10^3/uL; Eosinophils% 2.8 % (0-5); Hematocrit 34.7 % (37-47); Hemoglobin 11.1 g/dL (12.0-15.0); Lymphocyte # 1.88 X10^3/ul (0.83-4.51); Mean Corpuscular Hgb 30.5 pg (27.0-32.0); Mean Corpuscular Volume 95.3 fL (81-99); Mean Platelet Vol. 9.6 fl (6.2-12.0); Monocyte# 0.51 X10^3/uL; Monocyte% 9.5 % (0-10); NRBC Flagged by Analyzer 0 % (0-5); Neutrophil # 2.74 X10^3/uL (2.7-7.7); Neutrophil % 51.1 % (47-70); Platelet Count 266 K/mm3 (150-450); RBC Distribution Width CV 13.6 % (11.6-14.6); RBC Distribution Width SD 48.3 fl (35.1-43.9); Red Blood Count 3.64 M/mm3 (4.2-5.4); White Blood Count 5.4 K/mm3 (4.4-11.0)
[2024-03-18 06:42] LABS: Anion Gap 4 (5-15); BUN 26 mg/dL (7-18); BUN/Creat Ratio 28.7 RATIO (10-20); Calcium,Total 8.7 mg/dL (8.5-10.1); Chloride 107 mmol/L (98-107); Creatinine, Serum 0.91 mg/dL (0.55-1.02); EST Glomerular Filtration Rate 63 mL/min (>60); Est Glom Filt Rate - Afr Amer 77 mL/min (>60); Estimated Creatinine Clearance 53.49 ml/min; Glucose 85 mg/dL (74-106); Potassium 4.5 mmol/L (3.5-5.1); Sodium Level 140 mmol/L (136-145)
[2024-03-18 08:31] VITALS: BP 121/66; PULSE 80; RESP 18; TEMP 36.7; O2SAT 96
[2024-03-18] MEDS: oxyCODONE 5 MG Tablet PO ×3 (08:36→21:25)
[2024-03-18] MEDS: Ensure Plus High Protein 120 ML LIQUID PO ×2 (08:37→13:21)
[2024-03-18] MEDS: Loratadine 10 MG Tablet PO (08:37)
[2024-03-18 08:38] VITALS: PULSE 80
[2024-03-18] MEDS: Aspirin E.C. 81 MG Tablet PO (08:38)
[2024-03-18] MEDS: Citalopram 20 MG Tablet PO (08:38)
[2024-03-18] MEDS: Pantoprazole Sodium 40 MG Tablet PO (08:38)
[2024-03-18] MEDS: Metoprolol Tartrate 25 MG Tablet PO ×2 (08:38→21:25)
[2024-03-18] MEDS: Umeclidinium Bromide Inhaler 1 PUFF INHALATION (08:38)
[2024-03-18] MEDS: Fluticasone/Salmeterol 232-14 Inhaler 1 PUFF INHALATION ×2 (08:39→21:26)
[2024-03-18] MEDS: Nystatin Powder 15gm Bottle 1 APPLIC TOPICAL ×2 (08:40→21:28)
--- NOTE | 2024-03-18 08:41 | NURSING ---
Grain Elevator Clerk Note; MDS for 03/18/2024 Complete
[2024-03-18 09:20] VITALS: BMI 35.6
[2024-03-18] MEDS: traMADol 50 MG Tablet PO (09:25)
--- NOTE | 2024-03-18 11:35 | CASEMGMT ---
Social Work- SW met with pt to assess. BIMS score 15/15. PHQ9 0 completed for MDS assessment. GENO Nieves
[2024-03-18 21:25] VITALS: BP 125/62; PULSE 88
[2024-03-18] MEDS: Baclofen 10 MG Tablet PO (21:25)
[2024-03-19] MEDS: Levothyroxine 75 MCG Tablet PO (05:08)
[2024-03-19] MEDS: Acetaminophen 500 MG Tablet 1000 MG PO ×3 (05:08→21:47)
[2024-03-19] MEDS: oxyCODONE 5 MG Tablet PO ×3 (09:39→21:47)
[2024-03-19] MEDS: Fluticasone/Salmeterol 232-14 Inhaler 1 PUFF INHALATION ×2 (09:41→21:48)
[2024-03-19] MEDS: Citalopram 20 MG Tablet PO (09:44)
[2024-03-19] MEDS: Aspirin E.C. 81 MG Tablet PO (09:44)
[2024-03-19 09:45] VITALS: BP 120/71; PULSE 82
[2024-03-19] MEDS: Metoprolol Tartrate 25 MG Tablet PO ×2 (09:45→21:48)
[2024-03-19] MEDS: Loratadine 10 MG Tablet PO (09:45)
[2024-03-19] MEDS: Pantoprazole Sodium 40 MG Tablet PO (09:45)
[2024-03-19] MEDS: Senna/Docusate Sodium 1 Tablet 2 TABLET PO (09:46)
[2024-03-19] MEDS: Nystatin Powder 15gm Bottle 1 APPLIC TOPICAL ×2 (09:47→21:51)
[2024-03-19] MEDS: Ensure Plus High Protein 120 ML LIQUID PO ×3 (09:50→17:27)
[2024-03-19 09:51] VITALS: BP 120/71; PULSE 82
--- NOTE | 2024-03-19 10:34 | CASEMGMT ---
Social Work IDT met with patient and three daughters for care plan meeting. Discussed patient's progress in PT/OT/SN. Educated to [facility] insurance with NRD 03/25, EDC 03/28 and continued stay is not guaranteed with each review. Pt's goal is to return home and dtr to stay with pt to assist. However, other dtr inquiring about PASSPORT program for pt to get additional assistance at home when dtr is no longer staying with pt. SW educated to Medicaid requirement, but offered to make referral to Care Coordination program through [facility]. Pt agreeable. SW inquired about resources for medical alert and MOW. Pt agreed and resources provided. SW inquired about DME needs. Pt has a hemiwalker and w/c, but requesting 3-in-1 commode. SW to coordinate DME and HHC at [place]. SW will continue to follow for DC planning. Referral made to [facility] Care Coordination through website. Alicia Carrillo, SERVICE REPRESENTATIVE COMPUTER TECH
[2024-03-19] MEDS: Umeclidinium Bromide Inhaler 1 PUFF INHALATION (10:45)
[2024-03-19] MEDS: Tuberculin,Purif.prot.deriv. 50 TU/ML Vial 0.1 ML ID (11:50)
--- NOTE | 2024-03-19 14:42 | NURSING ---
PT LEFT BY WHEEL CHAIR AT [address] RM. TRANSPORTING PT.
[2024-03-19 16:00] VITALS: BP 160/77; PULSE 82; RESP 18; TEMP 36.3; O2SAT 91
--- NOTE | 2024-03-19 17:14 | NURSING ---
PT RETURNED FROM APPOINTMENT AT 1705. PER NO SURGERY AT THIS TIME. FOLLOW UP 04/02/24 AT 0945,XRAYS TO BE TAKEN AT OFFICE VISIT. ROM ELBOW/ WRIST /FINGERS DAILY.
[2024-03-19 21:30] VITALS: BP 140/61; PULSE 88; RESP 16; TEMP 36.2; O2SAT 95
[2024-03-19 21:48] VITALS: BP 140/61; PULSE 88
[2024-03-19] MEDS: Baclofen 10 MG Tablet PO (21:48)
[2024-03-20] MEDS: Levothyroxine 75 MCG Tablet PO (06:10)
[2024-03-20] MEDS: Acetaminophen 500 MG Tablet 1000 MG PO ×3 (06:10→21:45)
[2024-03-20 06:15] VITALS: BP 145/68; PULSE 74; RESP 16; TEMP 36.3; O2SAT 93
[2024-03-20 08:37] VITALS: BP 135/55; PULSE 87
[2024-03-20] MEDS: Umeclidinium Bromide Inhaler 1 PUFF INHALATION (08:39)
[2024-03-20] MEDS: Fluticasone/Salmeterol 232-14 Inhaler 1 PUFF INHALATION ×2 (08:39→21:49)
[2024-03-20] MEDS: Ensure Plus High Protein 120 ML LIQUID PO ×3 (08:44→17:56)
[2024-03-20] MEDS: oxyCODONE 5 MG Tablet PO ×2 (08:44→21:45)
[2024-03-20 08:45] VITALS: BP 135/55; PULSE 87
[2024-03-20] MEDS: Metoprolol Tartrate 25 MG Tablet PO ×2 (08:45→21:46)
[2024-03-20] MEDS: Loratadine 10 MG Tablet PO (08:45)
[2024-03-20] MEDS: Citalopram 20 MG Tablet PO (08:45)
[2024-03-20] MEDS: Aspirin E.C. 81 MG Tablet PO (08:45)
[2024-03-20] MEDS: Nystatin Powder 15gm Bottle 1 APPLIC TOPICAL ×2 (08:46→21:49)
[2024-03-20] MEDS: Pantoprazole Sodium 40 MG Tablet PO (08:47)
--- NOTE | 2024-03-20 09:04 | NURSING ---
DRESSINGS CHANGED TO LT LOWER LEG. SM AMOUNT OF REDNESS TO THE LOWER SKIN TEAR. WILL CONTINUE TO MONITOR. RN AWARE
--- NOTE | 2024-03-20 11:44 | NURSING ---
PT AND PT GRANDDAUGHTER NOTIFIED OF A PT TESTED POSITIVE FOR COVID TODAY.
[2024-03-20 15:24] VITALS: BP 137/69; PULSE 79; RESP 18; TEMP 35.8; O2SAT 96
[2024-03-20 21:45] VITALS: BP 134/67; PULSE 87; RESP 18
[2024-03-20 21:46] VITALS: BP 134/67; PULSE 87
[2024-03-20] MEDS: Baclofen 10 MG Tablet PO (21:46)
[2024-03-21] MEDS: Acetaminophen 500 MG Tablet 1000 MG PO ×3 (05:25→21:01)
[2024-03-21] MEDS: Levothyroxine 75 MCG Tablet PO (05:25)
[2024-03-21] MEDS: Fluticasone/Salmeterol 232-14 Inhaler 1 PUFF INHALATION ×2 (09:19→20:58)
[2024-03-21] MEDS: Umeclidinium Bromide Inhaler 1 PUFF INHALATION (09:19)
[2024-03-21] MEDS: Ensure Plus High Protein 120 ML LIQUID PO ×2 (09:20→13:15)
[2024-03-21] MEDS: oxyCODONE 5 MG Tablet PO ×3 (09:20→21:03)
[2024-03-21] MEDS: Citalopram 20 MG Tablet PO (09:20)
[2024-03-21] MEDS: Loratadine 10 MG Tablet PO (09:20)
[2024-03-21] MEDS: Aspirin E.C. 81 MG Tablet PO (09:20)
[2024-03-21 09:21] VITALS: PULSE 85
[2024-03-21] MEDS: Metoprolol Tartrate 25 MG Tablet PO ×2 (09:21→21:00)
[2024-03-21] MEDS: Nystatin Powder 15gm Bottle 1 APPLIC TOPICAL ×2 (09:25→20:57)
[2024-03-21] MEDS: Pantoprazole Sodium 40 MG Tablet PO (09:26)
[2024-03-21 09:27] VITALS: BP 145/87; PULSE 83
[2024-03-21] MEDS: Menthol/Lanolin/Calamine/Znox 113 GM Tube 1 APPLIC TOPICAL ×2 (11:47→20:54)
[2024-03-21 14:47] VITALS: BP 128/63; PULSE 84; RESP 16; TEMP 36.4; O2SAT 94
[2024-03-21 20:00] VITALS: PULSE 84; O2SAT 93
[2024-03-21] MEDS: Baclofen 10 MG Tablet PO (20:59)
[2024-03-21 21:00] VITALS: BP 133/66; PULSE 81
[2024-03-21 21:06] VITALS: BP 133/66; PULSE 81
[2024-03-22] MEDS: Levothyroxine 75 MCG Tablet PO (05:33)
[2024-03-22] MEDS: Acetaminophen 500 MG Tablet 1000 MG PO ×3 (05:33→20:42)
[2024-03-22 06:37] VITALS: PULSE 78; O2SAT 92
[2024-03-22] MEDS: Ensure Plus High Protein 120 ML LIQUID PO ×3 (09:37→16:26)
[2024-03-22] MEDS: Aspirin E.C. 81 MG Tablet PO (09:38)
[2024-03-22] MEDS: Loratadine 10 MG Tablet PO (09:38)
[2024-03-22 09:39] VITALS: BP 131/78; PULSE 84
[2024-03-22] MEDS: Metoprolol Tartrate 25 MG Tablet PO ×2 (09:39→20:41)
[2024-03-22] MEDS: Citalopram 20 MG Tablet PO (09:39)
[2024-03-22] MEDS: Pantoprazole Sodium 40 MG Tablet PO (09:40)
[2024-03-22] MEDS: Fluticasone/Salmeterol 232-14 Inhaler 1 PUFF INHALATION ×2 (09:41→20:40)
[2024-03-22] MEDS: Umeclidinium Bromide Inhaler 1 PUFF INHALATION (09:41)
[2024-03-22] MEDS: oxyCODONE 5 MG Tablet PO ×3 (09:45→20:48)
[2024-03-22] MEDS: Menthol/Lanolin/Calamine/Znox 113 GM Tube 1 APPLIC TOPICAL ×2 (13:37→20:38)
[2024-03-22] MEDS: Nystatin Powder 15gm Bottle 1 APPLIC TOPICAL ×2 (13:38→20:41)
[2024-03-22 16:00] VITALS: BP 131/78; PULSE 84; RESP 16; TEMP 36.4; O2SAT 96
[2024-03-22 20:41] VITALS: BP 142/67; PULSE 82
[2024-03-22] MEDS: Baclofen 10 MG Tablet PO (20:41)
[2024-03-22 20:45] VITALS: BP 142/67; PULSE 82
[2024-03-23] MEDS: Levothyroxine 75 MCG Tablet PO (05:12)
[2024-03-23] MEDS: Acetaminophen 500 MG Tablet 1000 MG PO ×3 (05:12→20:43)
[2024-03-23] MEDS: oxyCODONE 5 MG Tablet PO ×3 (05:15→20:39)
[2024-03-23 10:01] VITALS: PULSE 72
[2024-03-23] MEDS: Metoprolol Tartrate 25 MG Tablet PO ×2 (10:01→20:44)
[2024-03-23] MEDS: Umeclidinium Bromide Inhaler 1 PUFF INHALATION (10:01)
[2024-03-23] MEDS: Ensure Plus High Protein 120 ML LIQUID PO (10:01)
[2024-03-23] MEDS: Aspirin E.C. 81 MG Tablet PO (10:01)
[2024-03-23] MEDS: Fluticasone/Salmeterol 232-14 Inhaler 1 PUFF INHALATION ×2 (10:01→20:37)
[2024-03-23] MEDS: Loratadine 10 MG Tablet PO (10:03)
[2024-03-23] MEDS: Pantoprazole Sodium 40 MG Tablet PO (10:03)
[2024-03-23] MEDS: Citalopram 20 MG Tablet PO (10:03)
[2024-03-23] MEDS: Nystatin Powder 15gm Bottle 1 APPLIC TOPICAL ×2 (10:05→20:44)
[2024-03-23] MEDS: Menthol/Lanolin/Calamine/Znox 113 GM Tube 1 APPLIC TOPICAL ×2 (10:05→20:37)
[2024-03-23 16:00] VITALS: BP 122/78; PULSE 72; RESP 12; TEMP 36.8; O2SAT 94
[2024-03-23] MEDS: Baclofen 10 MG Tablet PO (20:38)
[2024-03-23 20:44] VITALS: BP 141/70; PULSE 84
[2024-03-24] MEDS: Acetaminophen 500 MG Tablet 1000 MG PO ×3 (05:34→20:23)
[2024-03-24] MEDS: Levothyroxine 75 MCG Tablet PO (05:34)
[2024-03-24] MEDS: oxyCODONE 5 MG Tablet PO ×3 (07:06→20:18)
[2024-03-24] MEDS: Umeclidinium Bromide Inhaler 1 PUFF INHALATION (09:16)
[2024-03-24 09:17] VITALS: PULSE 80
[2024-03-24] MEDS: Metoprolol Tartrate 25 MG Tablet PO ×2 (09:17→20:23)
[2024-03-24] MEDS: Fluticasone/Salmeterol 232-14 Inhaler 1 PUFF INHALATION ×2 (09:17→20:20)
[2024-03-24] MEDS: Citalopram 20 MG Tablet PO (09:18)
[2024-03-24] MEDS: Pantoprazole Sodium 40 MG Tablet PO (09:18)
[2024-03-24] MEDS: Senna/Docusate Sodium 1 Tablet 2 TABLET PO (09:18)
[2024-03-24] MEDS: Aspirin E.C. 81 MG Tablet PO (09:18)
[2024-03-24] MEDS: Loratadine 10 MG Tablet PO (09:23)
[2024-03-24] MEDS: Nystatin Powder 15gm Bottle 1 APPLIC TOPICAL ×2 (09:24→20:22)
[2024-03-24] MEDS: Menthol/Lanolin/Calamine/Znox 113 GM Tube 1 APPLIC TOPICAL ×2 (09:25→20:21)
--- NOTE | 2024-03-24 10:10 | MDS.RN ---
Information for the MDS was obtained from review of the clinical record, interview of resident, staff, and direct observation of resident?s care.
[2024-03-24] MEDS: Ensure Plus High Protein 120 ML LIQUID PO ×2 (13:06→16:45)
[2024-03-24 14:55] VITALS: BP 118/56; PULSE 79; RESP 18; TEMP 36.1; O2SAT 94
[2024-03-24 20:00] VITALS: PULSE 84; O2SAT 96
[2024-03-24] MEDS: Baclofen 10 MG Tablet PO (20:22)
[2024-03-24 20:23] VITALS: BP 136/65; PULSE 82
[2024-03-24 20:27] VITALS: BP 136/65; PULSE 82; O2SAT 96
[2024-03-25] MEDS: Acetaminophen 500 MG Tablet 1000 MG PO ×3 (05:10→21:30)
[2024-03-25] MEDS: Levothyroxine 75 MCG Tablet PO (05:10)
[2024-03-25 06:03] LABS: Absolute Lymphocyte Count 1.62 X10^3/uL (0.83-4.51); Absolute Neutrophil Count 2.6 X10^3/uL (2.0-7.7); Basophil# 0.05 X10^3/uL; Eosinophil# 0.13 X10^3/uL; Eosinophils% 2.6 % (0-5); Hematocrit 37.2 % (37-47); Hemoglobin 11.9 g/dL (12.0-15.0); Lymphocyte # 1.62 X10^3/ul (0.83-4.51); Lymphocyte % 32.9 % (19-41); Mean Corpuscular Hgb 31.1 pg (27.0-32.0); Mean Corpuscular Volume 97.1 fL (81-99); Mean Platelet Vol. 9.5 fl (6.2-12.0); Monocyte# 0.45 X10^3/uL; Monocyte% 9.1 % (0-10); NRBC Flagged by Analyzer 0 % (0-5); Neutrophil # 2.62 X10^3/uL (2.7-7.7); Neutrophil % 53.4 % (47-70); Platelet Count 324 K/mm3 (150-450); RBC Distribution Width CV 13.5 % (11.6-14.6); RBC Distribution Width SD 47.8 fl (35.1-43.9); Red Blood Count 3.83 M/mm3 (4.2-5.4); White Blood Count 4.9 K/mm3 (4.4-11.0)
[2024-03-25 06:55] LABS: Anion Gap 4 (5-15); BUN 31 mg/dL (7-18); BUN/Creat Ratio 31.5 RATIO (10-20); Calcium,Total 9.2 mg/dL (8.5-10.1); Chloride 104 mmol/L (98-107); Creatinine, Serum 0.98 mg/dL (0.55-1.02); EST Glomerular Filtration Rate 58 mL/min (>60); Est Glom Filt Rate - Afr Amer 70 mL/min (>60); Estimated Creatinine Clearance 48.33 ml/min; Glucose 91 mg/dL (74-106); Potassium 4.5 mmol/L (3.5-5.1); Sodium Level 138 mmol/L (136-145)
[2024-03-25] MEDS: Umeclidinium Bromide Inhaler 1 PUFF INHALATION (08:35)
[2024-03-25] MEDS: Ensure Plus High Protein 120 ML LIQUID PO ×2 (08:35→18:33)
[2024-03-25] MEDS: Fluticasone/Salmeterol 232-14 Inhaler 1 PUFF INHALATION ×2 (08:35→21:28)
[2024-03-25 08:36] VITALS: PULSE 72
[2024-03-25] MEDS: Loratadine 10 MG Tablet PO (08:36)
[2024-03-25] MEDS: Citalopram 20 MG Tablet PO (08:36)
[2024-03-25] MEDS: Metoprolol Tartrate 25 MG Tablet PO ×2 (08:36→21:29)
[2024-03-25] MEDS: Pantoprazole Sodium 40 MG Tablet PO (08:36)
[2024-03-25] MEDS: Aspirin E.C. 81 MG Tablet PO (08:37)
[2024-03-25] MEDS: Nystatin Powder 15gm Bottle 1 APPLIC TOPICAL ×2 (08:37→21:27)
[2024-03-25] MEDS: Menthol/Lanolin/Calamine/Znox 113 GM Tube 1 APPLIC TOPICAL ×2 (08:38→21:26)
[2024-03-25] MEDS: oxyCODONE 5 MG Tablet PO ×3 (08:40→21:34)
[2024-03-25 09:00] VITALS: BMI 35.8
--- NOTE | 2024-03-25 10:23 | CASEMGMT ---
Addendum entered by Alicia Carrillo 03/26/24 13:59: [facility] can accept, but pt has no identified SN needs. PT/OT only. Addendum entered by Alicia Carrillo 03/25/24 15:16: Pt provided HHC preferences: [facility], [facility], [facility]. SW phoned referral to [facility]. Original Note: Social Work Insurance issued LCD 03/27, [place] 03/28. SW spoke with pt about DC date and appeal rights. Pt stated she partially feels ready to DC home. SW explored further. Pt explained her leg is still weak and arm is having pain. SW offered SNF option. Pt denied and stated she will be returning home and family has arranged people to help her at home. SW reminded pt this worker submitted referral to [facility] Care Coordination program for possible assistance in the home, but cautioned it does take time for assessment/approval. Pt expressed understanding. SW confirmed pt's request for BSC and w/c at [place]. SW offered skilled HHC. Pt agreed and has no preference of agency. SW provided printed list of skilled HHC agencies with quality and resource data via [employer]Port Guide. Pt to make selection and notify this worker. Family to transport. SW sent referral to [facility] for w/c and BSC via CarePort. Plan: DC home 03/28, HHC PT/OT/SN, BSC, w/c Alicia Carrillo, BRENDA DONW
--- NOTE | 2024-03-25 10:35 | CASEMGMT ---
Social Work BIMS () and PHQ-2 () completed for MDS assessment. Alicia Carrillo MSW [employer] BRADDER
[2024-03-25] MEDS: traMADol 50 MG Tablet PO ×2 (10:36→18:48)
--- NOTE | 2024-03-25 12:55 | NURSING ---
Updated patient and daughter Lani (via phone) that staff member tested covid positive.
[2024-03-25 16:00] VITALS: BP 128/60; PULSE 76; RESP 18; TEMP 36.1; O2SAT 94
--- NOTE | 2024-03-25 21:16 | PCM.DC.SUM ---
Providers Date of Admission: 03/11/24 Primary Care Physician: Dr. Rancho Knott MD Reason For Visit: L HUMERUS FX Diagnosis Discharge Diagnosis (1) Debility: Status: Acute Code(s): R53.81 - Other malaise (2) Fall: Status: Acute Code(s): W19.XXXA - Unspecified fall, initial encounter (3) Closed left humeral fracture: Status: Acute Code(s): S42.302A - Unspecified fracture of shaft of humerus, left arm, initial encounter for closed fracture (4) Closed fracture of left proximal humerus: Status: Acute Code(s): S42.202A - Unspecified fracture of upper end of left humerus, initial encounter for closed fracture (5) Allergic rhinitis: Status: Acute Code(s): J30.9 - Allergic rhinitis, unspecified (6) Hypothyroidism: Status: Chronic Code(s): E03.9 - Hypothyroidism, unspecified (7) Essential (primary) hypertension: Status: Acute Code(s): I10 - Essential (primary) hypertension (8) Sleep apnea: Status: Acute Code(s): G47.30 - Sleep apnea, unspecified (9) COPD (chronic obstructive pulmonary disease): Status: Chronic Code(s): J44.9 - Chronic obstructive pulmonary disease, unspecified Plan 83 year old female with below past medical history hospitalized for fall, left humerus fracture, treated non-operatively, admitted to TCU with debility, here for rehabilitation, strengthening, prior to discharge home with . Debility - PT/OT. Pain - Tylenol 1000mg q8, Tramadol 50mg q6 prn pain (1-5), Oxycodone 5mg q4 prn pain (6-10). Bowel - Senna/colace 2 tablets bid, Magnesium citrate 300ml daily prn. Adult immunization - Administer pneumonia vaccine, covid vaccine, flu vaccine as appropriate. DVT prophylaxis - Aspirin 81mg bid. Muscle spasm - Baclofen 10mg qhs. 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 Nutrition - Ensure Plus 120ml tidcm. COPD - Fluticasone/salmeterol 1 puff bid, Incruse 1 puff daily. Hypothyroidism - Levothyroxine 75mcg daily. Allergic rhinitis - Loratadine 10mg daily. Hypertension - Metoprolol 25mg bid. Tinea Corporis - Nystatin powder topical bid. GERD - Pantoprazole 40mg daily. Medications at Discharge Home Medications levocetirizine 5 mg tablet 5 mg PO DAILY ALLERGIES 04/06/20 levothyroxine 50 mcg tablet 75 mcg PO DAILY THYROID 06/21/22 fluticasone fur. 100 mcg-umeclid 62.5 mcg-vilant 25 mcg inhalat.powder (Trelegy Ellipta) 1 inh inhalation DAILY asthma 12/27/22 metoprolol tartrate 25 mg tablet 25 mg PO BID BP #180 tabs 08/16/23 baclofen 10 mg tablet 10 mg PO QHS muscle relaxer 03/09/24 citalopram 20 mg tablet 20 mg PO DAILY antidepressant 03/09/24 omeprazole 40 mg capsule,delayed release 40 mg PO DAILY acid reflux 03/09/24 acetaminophen 500 mg tablet 1,000 mg (2 x 500 mg) PO Q8 #0 tabs 03/25/24 aspirin 81 mg tablet,delayed release 81 mg PO DAILYCM #0 tabs 03/25/24 oxycodone 5 mg tablet 5 mg PO Q4H PRN PRN Pain Score 6-10 Or Pre Pt/Ot 7 days #42 tabs 03/25/24 sennosides 8.6 mg-docusate sodium 50 mg tablet (Stimulant Laxative Plus) 2 tab PO BID 30 days #120 tabs 03/25/24 tramadol 50 mg tablet 50 mg PO Q6H PRN PRN Pain Score 1-5 Or Pre Pt/Ot 7 days #28 tabs 03/25/24 Hospital Course Operations None Procedures None Summary of Care Provided Minutes Spent on Discharge: 35 Hospital Course: 83 year old female with below past medical history hospitalized for fall, left humerus fracture, treated non-operatively, admitted to TCU with debility, here for rehabilitation, strengthening, prior to discharge home with . Discharge home with 03/28/2024, [facility] [place] PT/OT/SN, BSC, wheelchair. Bedside commode: The patient is confined to a single room with no toilet. The patient is confined to one level of the house environment and there is no toilet on that level. The patient is confined to the home and there is no toilet in the home. Wheelchair: Patient has a mobility limitation that cannot be sufficiently resolved by using a cane or walker. Use of a wheelchair will improve the participation of ADLs on a regular basis in the home. Physical Exam Const alert General Appearance: cooperative HEENT normocephalic Eyes PERRL and EOMs intact bilaterally Neck supple, no JVD and no carotid bruits Resp normal respiratory effort, normal air movement and clear to auscultation bilaterally Cardio regular rate and regular rhythm GI normal to inspection, nondistended, normoactive bowel sounds, non-tender and non-distended Extremity normal capillary refill Extremity Narrative: Left upper extremity sling. General Extremity: Negative for edema Skin no rashes or lesions noted General Skin Exam: no breakdown Psych affect normal Appearance: appropriate Weight / BMI Weight Weight: 91.671 kg Body Mass Index (BMI) 35.8 ABG / Lab / Microbiology Data 03/25/24 05:07 03/25/24 05:07 Laboratory: Laboratory Results - last 24 hr 03/25/24 05:07: WBC 4.9, RBC 3.83 L, Hgb 11.9 L, Hct 37.2, MCV 97.1, MCH 31.1, MCHC 32.0, RDW Std Deviation 47.8 H, RDW Coeff of Stevie 13.5, Plt Count 324, MPV 9.5, Immature Gran % (Auto) 1.000 H, Neut % (Auto) 53.4, Lymph % (Auto) 32.9, [place] % (Auto) 9.1, Eos % (Auto) 2.6, Baso % (Auto) 1.0, Absolute Neuts (auto) 2.6, Absolute Lymphs (auto) 1.62, Nucleated RBC % 0, Sodium 138, Potassium 4.5, Chloride 104, Carbon Dioxide 30.0, Anion Gap 4 L, BUN 31 H, Creatinine 0.98, Estim Creat Clear Calc 48.33, Est GFR (MDRD) Af Amer 70, Est GFR (MDRD) Non-Af 58 L, BUN/Creatinine Ratio 31.5 H, Glucose 91, Calcium 9.2 Microbiology: Microbiology 03/23/24 09:45 Mucosa - Nose Respiratory Panel (PCR) - Final 03/23/24 09:00 Nasal Secretion SARS-CoV-2 Antigen (Rapid) - Final 03/20/24 Unknown Nasal Secretion SARS-CoV-2 Antigen (Rapid) - Final 03/13/24 06:00 Nasal Secretion SARS-CoV-2 Antigen (Rapid) - Final D/C Instructions Discharge Diet: No restrictions Discharge Activity: Return to Normal Activity, May Shower and Use Walker Weight Bearing Status: Weight bearing as tolerated Call your doctor if you observe: Fever of 101 or Higher, Inability to urinate, Inability to have a bowel movement, Shortness of breath, Dizziness, Fainting spells, Swelling in the ankles, Chest pain and Uncontrolled pain Additional Instructions: Discharge home with 03/28/2024, [facility] [place] PT/OT/SN, BSC, wheelchair. Bedside commode: The patient is confined to a single room with no toilet. The patient is confined to one level of the house environment and there is no toilet on that level. The patient is confined to the home and there is no toilet in the home. Wheelchair: Patient has a mobility limitation that cannot be sufficiently resolved by using a cane or walker. Use of a wheelchair will improve the participation of ADLs on a regular basis in the home. Please Follow Up With: Rene Pennington MD When: As scheduled. Meaningful Use Info Meaningful Use Meaningful Use Diagnoses (Choose all that apply): None applicable Ischemic Stroke Statin Dosing Therapy Reference: STATIN DOSE THERAPY REFERENCE: * Patients > 75 years receive moderate or high dose statin therapy. * Patients 75 years or YOUNGER should receive HIGH intensity statin dose unless contraindicated. You will be required to document reason for non-treatment if statin daily dose does not meet guidelines. HIGH DOSE STATIN THERAPY DAILY Atorvastatin > than or = to 40 mg Rosuvastatin > than or = to 20 mg Amlodipine + Atorvastatin > than or = to 2.5/40 mg Ezetimibe + Simvastatin 10/80 mg Simvastatin 80mg Discharge Plan Admission Admit Date/Time: 03/11/24 14:41 Primary Reason for Your Visit: Debility. Attending Provider: Rancho Knott Chi Primary Care Provider: Rancho Knott Chi Instructions Additional Instructions / Restrictions: Discharge home with 03/28/2024, [facility] [place] PT/OT/SN, BSC, wheelchair. Bedside commode: The patient is confined to a single room with no toilet. The patient is confined to one level of the house environment and there is no toilet on that level. The patient is confined to the home and there is no toilet in the home. Wheelchair: Patient has a mobility limitation that cannot be sufficiently resolved by using a cane or walker. Use of a wheelchair will improve the participation of ADLs on a regular basis in the home. Discharge Orders/Prescriptions Prescriptions: New acetaminophen 500 mg Tablet 1,000 mg PO Q8 Qty: 0 0RF aspirin 81 mg Tablet,Delayed Release (Dr/Ec) 81 mg PO DAILYCM Qty: 0 0RF sennosides-docusate sodium [Stimulant Laxative Plus] 8.6-50 mg Tablet 2 tab PO BID 30 Days Qty: 120 0RF oxycodone 5 mg Tablet 5 mg PO Q4H PRN PRN (Reason: Pain Score 6-10 Or Pre Pt/Ot) 7 Days Qty: 42 0RF tramadol 50 mg Tablet 50 mg PO Q6H PRN PRN (Reason: Pain Score 1-5 Or Pre Pt/Ot) 7 Days Qty: 28 0RF Continued levocetirizine 5 mg tablet 5 mg PO DAILY Trelegy Ellipta 100-62.5-25 mcg blister with device 1 inh inhalation DAILY metoprolol tartrate 25 mg tablet 25 mg PO BID Qty: 180 3RF levothyroxine 50 mcg tablet 75 mcg PO DAILY baclofen 10 mg tablet 10 mg PO QHS omeprazole 40 mg capsule,delayed release(DR/EC) 40 mg PO DAILY citalopram 20 mg tablet 20 mg PO DAILY Discontinued hydrocodone-acetaminophen 5-325 mg tablet 1 tab PO TID PRN PRN (Reason: pain) oxycodone 5 mg Tablet 5 mg PO Q4H PRN PRN (Reason: Pain Score 4-10) Qty: 0 0RF aspirin 325 mg tablet,delayed release (DR/EC) 81 mg PO BID Referrals / Follow Up: Rancho Knott Chi, MD [Primary Care Provider] - 03/31/24 10:00 am Disposition Disposition (needs filled in before D/C Order can be placed): Home Health Service
[2024-03-25 21:29] VITALS: BP 124/58; PULSE 78
[2024-03-25] MEDS: Baclofen 10 MG Tablet PO (21:29)
[2024-03-25 21:36] VITALS: BP 124/58; PULSE 78
[2024-03-26] MEDS: Acetaminophen 500 MG Tablet 1000 MG PO ×3 (05:27→20:52)
[2024-03-26] MEDS: Levothyroxine 75 MCG Tablet PO (05:27)
[2024-03-26] MEDS: oxyCODONE 5 MG Tablet PO ×2 (07:50→20:51)
[2024-03-26] MEDS: Fluticasone/Salmeterol 232-14 Inhaler 1 PUFF INHALATION ×2 (07:52→20:52)
[2024-03-26] MEDS: Ensure Plus High Protein 120 ML LIQUID PO ×3 (07:53→17:47)
[2024-03-26] MEDS: Citalopram 20 MG Tablet PO (07:54)
[2024-03-26] MEDS: Aspirin E.C. 81 MG Tablet PO (07:54)
[2024-03-26] MEDS: Loratadine 10 MG Tablet PO (07:54)
[2024-03-26 07:55] VITALS: BP 118/63; PULSE 71
[2024-03-26] MEDS: Pantoprazole Sodium 40 MG Tablet PO (07:55)
[2024-03-26] MEDS: Metoprolol Tartrate 25 MG Tablet PO ×2 (07:55→20:52)
[2024-03-26] MEDS: Nystatin Powder 15gm Bottle 1 APPLIC TOPICAL (07:56)
[2024-03-26] MEDS: Menthol/Lanolin/Calamine/Znox 113 GM Tube 1 APPLIC TOPICAL ×2 (07:56→20:55)
[2024-03-26 08:05] VITALS: BP 118/63; PULSE 71
[2024-03-26] MEDS: Umeclidinium Bromide Inhaler 1 PUFF INHALATION (12:19)
[2024-03-26] MEDS: traMADol 50 MG Tablet PO (13:59)
[2024-03-26 15:13] VITALS: BP 113/63; PULSE 73; RESP 16; TEMP 36.2; O2SAT 94
[2024-03-26 20:45] VITALS: BP 120/58; PULSE 78
[2024-03-26 20:52] VITALS: BP 120/56; PULSE 78
[2024-03-26] MEDS: Baclofen 10 MG Tablet PO (20:52)
[2024-03-27] MEDS: Acetaminophen 500 MG Tablet 1000 MG PO (05:53)
[2024-03-27] MEDS: Levothyroxine 75 MCG Tablet PO (05:53)
[2024-03-27 08:36] VITALS: BP 132/48; PULSE 79
[2024-03-27 08:41] VITALS: BP 132/48; PULSE 79
[2024-03-27 10:45] VITALS: PULSE 70; RESP 18; O2SAT 96
[2024-03-27 15:27] VITALS: BP 110/60; PULSE 78; RESP 16; TEMP 36.1; O2SAT 93
[2024-03-27 21:24] VITALS: BP 130/53; PULSE 85
[2024-03-28 08:44] VITALS: BP 107/55; PULSE 77
== END 2024-03-28 13:30 | disposition home health service (06) | DRG 561 ==
PROVIDERS: Admitting Provider Family Medicine Geriatric Medicine; PCP Family Medicine Geriatric Medicine; Visit Provider Family Medicine Geriatric Medicine
DX: S42.202D Unspecified fracture of upper end of left humerus, subsequent encounter for fracture with routine healing (principal); B35.4 Tinea corporis; J44.9 Chronic obstructive pulmonary disease, unspecified; E03.9 Hypothyroidism, unspecified; I10 Essential (primary) hypertension; F32.A Depression, unspecified; G47.30 Sleep apnea, unspecified; J30.9 Allergic rhinitis, unspecified; K21.9 Gastro-esophageal reflux disease without esophagitis; W01.0XXD Fall on same level from slipping, tripping and stumbling without subsequent striking against object, subsequent encounter; Z87.891 Personal history of nicotine dependence; Z79.51 Long term (current) use of inhaled steroids; Z79.890 Hormone replacement therapy; Z86.718 Personal history of other venous thrombosis and embolism; Z79.899 Other long term (current) drug therapy; Z79.82 Long term (current) use of aspirin
CPT/HCPCS: 36415; 80048; 85025; 87633; 87811; 97110; 97116; 97162; 97166; 97530; 97535

== ENCOUNTER 2024-05-18 16:21 | Emergency (ER) | payer MEDICARE, SELFPAY ==
[2024-05-18 16:23] VITALS: BP 168/68; PULSE 74; RESP 18; TEMP 36.8; O2SAT 96; BMI 36.9
--- NOTE | 2024-05-18 16:39 | RAD_ITS ---
STUDY: X-RAY - PELVIS AND LEFT HIP REASON FOR EXAM: Female, 83 years old. FALL, PAIN TECHNIQUE: 3 views of the pelvis and hip. COMPARISON: None. FINDINGS: There is a non-specific bowel gas pattern. Normal visualized soft tissue structures. Normal bilateral iliac wings, sacroiliac joints and visualized sacrum. Normal bilateral superior and inferior pubic rami. Normal pubic symphysis. Normal bilateral ischial tuberosities. There is narrowing of the joint space with subchondral cystic and sclerotic changes . 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 No acute fracture or dislocation. Electronically Signed: Giles Lockwood MD at 17:24 EDT ,
--- NOTE | 2024-05-18 17:00 | RAD_ITS ---
STUDY: X-RAY - LEFT HAND, ATTENTION PINKY FINGER REASON FOR EXAM: Female, 83 years old. FALL, PAIN TECHNIQUE: 3 view(s) of the finger were obtained. COMPARISON: None. FINDINGS: Normal metacarpal head. Normal metacarpophalangeal joint. Normal proximal phalanx. Normal middle phalanx. Normal distal phalanx. Mild spurring of the proximal interphalangeal joint. Minor spurring of the distal interphalangeal joint. Diffuse soft tissue swelling. RAD/Finger(s) Min 2 Views IMPRESSION: Soft tissue swelling without evidence for acute fracture or dislocation Electronically Signed: Giles Lockwood MD at 17:22 EDT ,
[2024-05-18] MEDS: Acetaminophen 325 MG Tablet 650 MG PO (17:15)
[2024-05-18] MEDS: Ondansetron 4 MG/2 ML Vial IV (17:25)
[2024-05-18] MEDS: Morphine 2 MG/ML Syringe IV ×2 (17:25→18:38)
--- NOTE | 2024-05-18 17:31 | ED.VIS.LOWEX ---
HPI <TRUE Schwarz - Last Filed: 05/18/24 21:13> History of Present Illness Chief Complaint: Lower Extremity Injury Narrative Narrative: Patient presenting today with pain to her left hip and left pinky finger after a mechanical fall occurred this afternoon. She reports that she was walking to sit down in her chair when her hip gave out which occasionally happens, it caused her to fall to the ground onto her left hip. She was unable to get up due to the pain and had to use her Daniela to call her granddaughter for help. She did not hit her head, she is not on any blood thinners, she denies any LOC. She has a PMH of hypothyroidism, HTN, JANA, COPD, and recent left shoulder fracture following with Dr. Pennington. PFSH <TRUE Schwarz - Last Filed: 05/18/24 21:13> [facility] Medical History Hx of deep venous thrombosis Benign essential HTN Anxiety GERD (gastroesophageal reflux disease) CPAP (continuous positive airway pressure) dependence Sleep apnea Migraines Hypothyroidism History of asthma History of COPD History of arthritis History of Right Foot Fracture Home Medications ?Medication ?Instructions ?Recorded ?Last Taken ?Type levocetirizine 5 mg tablet 5 mg PO DAILY ALLERGIES 04/06/20 03/25/21 History levothyroxine 50 mcg tablet 75 mcg PO DAILY THYROID 06/21/22 Unknown History fluticasone fur. 100 mcg-umeclid 1 inh inhalation DAILY asthma 12/27/22 Unknown History 62.5 mcg-vilant 25 mcg inhalat.powder (Trelegy Ellipta) metoprolol tartrate 25 mg tablet 25 mg PO BID BP #180 tabs 08/16/23 Unknown Rx baclofen 10 mg tablet 10 mg PO QHS muscle relaxer 03/09/24 Unknown History citalopram 20 mg tablet 20 mg PO DAILY antidepressant 03/09/24 Unknown History omeprazole 40 mg capsule,delayed 40 mg PO DAILY acid reflux 03/09/24 Unknown History release acetaminophen 500 mg tablet 1,000 mg (2 x 500 mg) PO Q8 #0 tabs 03/25/24 Unknown Rx aspirin 81 mg tablet,delayed 81 mg PO DAILYCM #0 tabs 03/25/24 Unknown Rx release oxycodone 5 mg tablet 5 mg PO Q4H PRN PRN Pain Score 03/25/24 Unknown Rx 6-10 Or Pre Pt/Ot 7 days #42 tabs sennosides 8.6 mg-docusate sodium 2 tab PO BID 30 days #120 tabs 03/25/24 Unknown Rx 50 mg tablet (Stimulant Laxative Plus) tramadol 50 mg tablet 50 mg PO Q6H PRN PRN Pain Score 03/25/24 Unknown Rx 1-5 Or Pre Pt/Ot 7 days #28 tabs oxycodone-acetaminophen 5 mg-325 1 tab PO Q6H PRN pain 3 days #10 05/18/24 Unknown Rx mg tablet (Endocet) tabs Allergy/AdvReac Type Severity Reaction Status Date / Time Penicillins Allergy Severe facial Verified 05/18/24 16:26 swelling Family History (Updated 05/18/24 @ 19:[address] Alise Vieira MD) Mother Hypertension CVA (cerebral vascular accident) Father Hypertension CVA (cerebral vascular accident) Surgical History History of foot surgery H/O cataract removal with insertion of prosthetic lens Hx of tubal ligation S/P foot surgery, right History of appendectomy History of cholecystectomy Social History household members: spouse Smoking Status: Former smoker alcohol intake: never substance use type: does not use ROS <TRUE Schwarz - Last Filed: 05/18/24 21:13> ROS ED Constitutional Constitutional ED: Denies chills or fever(s) Cardiovascular Cardiovascular: Denies chest pain Respiratory/Chest Respiratory/Chest: Denies cough or dyspnea Gastrointestinal Gastrointestinal: Denies abdominal pain, nausea or vomiting Musculoskeletal Musculoskeletal: Reports arthralgias; Denies back pain or neck pain Integumentary Reports Abrasions Neurologic Neurologic: Denies paresthesias EXAM <TRUE Schwarz - Last Filed: 05/18/24 21:13> Physical Exam Const Vital Signs: 05/18/24 16:23 05/18/24 18:24 05/18/24 20:00 Temperature 98.3 F 98.1 F Temperature Source Oral Pulse Rate 74 72 70 Respiratory Rate 18 16 20 H Blood Pressure 168/68 H 158/62 H 134/66 H Blood Pressure Mean 101 94 88 Pulse Ox 96 94 92 Oxygen Delivery Method Room Air Room Air Positive well nourished, well developed and no apparent distress General Appearance ED: well developed HEENT Reports normocephalic and head/scalp atraumatic Mouth ED: Yes moist mucous membranes normal Eyes PERRL and EOMs intact bilaterally Neck full ROM and supple Chest Wall inspection of chest normal Resp normal respiratory effort and clear to auscultation bilaterally Cardio regular rate and regular rhythm GI soft to palpation, non-tender, non-distended and no masses Back/Spine normal ROM and normal to inspection Extremity normal to inspection and full ROM Extremity Narrative: No deformity to the left lower extremity, positive logroll on the left, pain to the left greater trochanter. Full range of motion to the left knee with an abrasion over the patella, no pain on palpation to the left knee, no joint effusion. Abrasion to the dorsal aspect of the left fifth finger with decreased ROM at the MCP and PIP joints. Left radial pulse and DP pulse 2+, good cap refill, sensation intact. Neuro oriented x3, CN's II-XII intact bilaterally, moves all extremities, no focal motor deficits and no sensory deficits noted Sensorium / Orientation: awake and alert Psych mental status grossly normal and thought process normal Skin Lesions: no lesions <Zeyad Husain MD - Last Filed: 05/18/24 21:53> Physical Exam Const Vital Signs: 05/18/24 16:23 05/18/24 18:24 05/18/24 20:00 Temperature 98.3 F 98.1 F Temperature Source Oral Pulse Rate 74 72 70 Respiratory Rate 18 16 20 H Blood Pressure 168/68 H 158/62 H 134/66 H Blood Pressure Mean 101 94 88 Pulse Ox 96 94 92 Oxygen Delivery Method Room Air Room Air [facility] <TRUE Schwarz - Last Filed: 05/18/24 21:13> [facility] Narrative Medical decision making narrative: Patient presenting today with pain to her left hip and left pinky finger after a mechanical fall occurred this afternoon. She did not hit her head, there was no LOC. She denies being in pain anywhere else. She has a small abrasion to her pinky, her tetanus is up-to-date. X-ray of the left hip and left fifth finger obtained to rule out fracture, left hip shows significant arthritis, otherwise no fracture seen on either x-ray. Basic labs were obtained due to anticipation the patient would possibly need admitted to the hospital as she was unable to ambulate after her fall. Her CBC is unremarkable, her BUN is 27, her creatinine is 1.07 which is similar from previous visit. She was given analgesia here. CT of the right hip was obtained due to concerns for fracture despite negative x-ray, this shows arthritis but no fracture. Patient was able to ambulate, she does feel comfortable going home. She does have a follow-up appointment with her orthopedist, Dr. Pennington tomorrow. I will give her a prescription for Percocet and she will be discharged home in stable condition. Lab Data Attestation: I reviewed the patient's lab results. Lab results narrative: BUN 27, creatinine 1.07 Labs: Laboratory Results - last 24 hr 05/18/24 16:12 WBC 8.1 RBC 4.14 L Hgb 12.8 Hct 39.9 MCV 96.4 MCH 30.9 MCHC 32.1 RDW Std Deviation 47.9 H RDW Coeff of Stevie 13.6 Plt Count 300 MPV 10.2 Immature Gran % (Auto) 0.500 Neut % (Auto) 62.0 Lymph % (Auto) 26.4 Bland % (Auto) 8.3 Eos % (Auto) 1.8 Baso % (Auto) 1.0 Absolute Neuts (auto) 5.0 Absolute Lymphs (auto) 2.14 Nucleated RBC % 0 Sodium 139 Potassium 4.4 Chloride 108 H Carbon Dioxide 25.0 Anion Gap 7 BUN 27 H Creatinine 1.07 H Estim Creat Clear Calc 43.42 Est GFR (MDRD) Af Amer 63 Est GFR (MDRD) Non-Af 52 L BUN/Creatinine Ratio 25.2 H Glucose 101 Calcium 9.0 Radiography X-Ray: Read by ED Physician Diagnostic Testing: Clinical Impression(s) from Imaging Studies Hip/Pelvis X-Ray 05/18/24 16:39 IMPRESSION: Advanced degenerative change of the left hip. No acute fracture or dislocation. Electronically Signed: Giles Lockwood MD at 17:24 EDT , Finger X-Ray 05/18/24 17:00 IMPRESSION: Soft tissue swelling without evidence for acute fracture or dislocation Electronically Signed: Giles Lockwood MD at 17:22 EDT , Lower Extremity CT 05/18/24 18:08 IMPRESSION: Severe osteoarthritic changes. No evidence for acute fracture or dislocation. Electronically Signed: Giles Lockwood MD at 19:02 EDT , <Zeyad Husain MD - Last Filed: 05/18/24 21:53> [facility] Narrative Medical decision making narrative: Patient presenting today with pain to her left hip and left pinky finger after a mechanical fall occurred this afternoon. She did not hit her head, there was no LOC. She denies being in pain anywhere else. She has a small abrasion to her pinky, her tetanus is up-to-date. X-ray of the left hip and left fifth finger obtained to rule out fracture, left hip shows significant arthritis, otherwise no fracture seen on either x-ray. Basic labs were obtained due to anticipation the patient would possibly need admitted to the hospital as she was unable to ambulate after her fall. Her CBC is unremarkable, her BUN is 27, her creatinine is 1.07 which is similar from previous visit. She was given analgesia here. CT of the right hip was obtained due to concerns for fracture despite negative x-ray, this shows arthritis but no fracture. Patient was able to ambulate, she does feel comfortable going home. She does have a follow-up appointment with her orthopedist, Dr. Pennington tomorrow. I will give her a prescription for Percocet and she will be discharged home in stable condition. Dr. Husain: I have personally performed a face to face assessment of the patient and have reviewed the DANIS Note. I performed a substantive portion of the visit including all aspects of the following. My cota findings include: History is fall with injury to left fifth digit and left hip. History of arthritis of the left hip. Patient states that at times it will catch or give out and she will fall. Exam is GCS 15. ABCs intact. Positive skin avulsions on the left fifth digit with diffuse tenderness to palpation of proximal phalanx. Regular rate and rhythm. Lungs clear to auscultation bilaterally. Abdomen soft nontender. Positive pain with logrolling of hip, left. Able to flex and extend at left hip and left knee. Medical Decision Making: Check labs. Check x-rays. X-ray of the left fifth digit interpreted by myself independently shows no evidence of an acute fracture. I do not feel that her skin avulsions are amenable to suturing. I reviewed the radiology report of the x-ray of the finger which confirms my independent interpretation. On my interpretation of the x-ray of the left hip, there is severe arthritis of the left hip and femoral head appears somewhat impacted. I reviewed the radiology report which states there is no acute fracture. Given her clinical findings of pain with logrolling of the hip, CT of the hip was obtained and I reviewed the radiology report which states there is no acute fracture. Patient was ambulated in the ED. She is able to ambulate with a walker. She will be given analgesics and she has follow-up appointment with her orthopedic surgeon tomorrow. Return instructions to the emergency department were reviewed. Disposition is discharged home in stable condition. Other additions or changes: [None] History & Record Review Discussion w/independent historian: Patient Lab Data Labs: Laboratory Results - last 24 hr 05/18/24 16:12 WBC 8.1 RBC 4.14 L Hgb 12.8 Hct 39.9 MCV 96.4 MCH 30.9 MCHC 32.1 RDW Std Deviation 47.9 H RDW Coeff of Stevie 13.6 Plt Count 300 MPV 10.2 Immature Gran % (Auto) 0.500 Neut % (Auto) 62.0 Lymph % (Auto) 26.4 Bland % (Auto) 8.3 Eos % (Auto) 1.8 Baso % (Auto) 1.0 Absolute Neuts (auto) 5.0 Absolute Lymphs (auto) 2.14 Nucleated RBC % 0 Sodium 139 Potassium 4.4 Chloride 108 H Carbon Dioxide 25.0 Anion Gap 7 BUN 27 H Creatinine 1.07 H Estim Creat Clear Calc 43.42 Est GFR (MDRD) Af Amer 63 Est GFR (MDRD) Non-Af 52 L BUN/Creatinine Ratio 25.2 H Glucose 101 Calcium 9.0 Radiography Diagnostic Testing: Clinical Impression(s) from Imaging Studies Hip/Pelvis X-Ray 05/18/24 16:39 IMPRESSION: Advanced degenerative change of the left hip. No acute fracture or dislocation. Electronically Signed: Giles Lockwood MD at 17:24 EDT , Finger X-Ray 05/18/24 17:00 IMPRESSION: Soft tissue swelling without evidence for acute fracture or dislocation Electronically Signed: Giles Lockwood MD at 17:22 EDT , Lower Extremity CT 05/18/24 18:08 IMPRESSION: Severe osteoarthritic changes. No evidence for acute fracture or dislocation. Electronically Signed: Giles Lockwood MD at 19:02 EDT , Discharge Plan Triage Chief Complaint: Lower Extremity Injury ED Midlevel Provider: Celina Fritz ED Provider: Zeyad Husain Dx/Rx/DC Orders Clinical Impression: Contusion of hip, left, Fall, Contusion of finger Instructions: ED Finger Contusion, ED Hip Contusion Prescriptions: New oxycodone-acetaminophen [Endocet] 5-325 mg tablet 1 tab PO Q6H PRN (Reason: pain) 3 Days Qty: 10 0RF No Action levocetirizine 5 mg tablet 5 mg PO DAILY Trelegy Ellipta 100-62.5-25 mcg blister with device 1 inh inhalation DAILY metoprolol tartrate 25 mg tablet 25 mg PO BID Qty: 180 3RF levothyroxine 50 mcg tablet 75 mcg PO DAILY acetaminophen 500 mg Tablet 1,000 mg PO Q8 Qty: 0 0RF aspirin 81 mg Tablet,Delayed Release (Dr/Ec) 81 mg PO DAILYCM Qty: 0 0RF sennosides-docusate sodium [Stimulant Laxative Plus] 8.6-50 mg Tablet 2 tab PO BID 30 Days Qty: 120 0RF oxycodone 5 mg Tablet 5 mg PO Q4H PRN PRN (Reason: Pain Score 6-10 Or Pre Pt/Ot) 7 Days Qty: 42 0RF tramadol 50 mg Tablet 50 mg PO Q6H PRN PRN (Reason: Pain Score 1-5 Or Pre Pt/Ot) 7 Days Qty: 28 0RF baclofen 10 mg tablet 10 mg PO QHS omeprazole 40 mg capsule,delayed release(DR/EC) 40 mg PO DAILY citalopram 20 mg tablet 20 mg PO DAILY Primary Care Provider: [place] [facility] Referrals: Rene Pennington MD [Med Staff - Active Staff] - 1 Day [place] Chi, MD [Primary Care Provider] - Activity Restrictions/Additional Instructions: Follow-up with Dr. Pennington, return for any other concerns. Print Language: Singaporean Disposition Disposition: Home, Self Care Discharge Date/Time: 05/18/24 20:32
[2024-05-18 18:08] LABS: Absolute Lymphocyte Count 2.14 X10^3/uL (0.83-4.51); Basophil# 0.08 X10^3/uL; Eosinophil# 0.15 X10^3/uL; Eosinophils% 1.8 % (0-5); Hematocrit 39.9 % (37-47); Hemoglobin 12.8 g/dL (12.0-15.0); Lymphocyte # 2.14 X10^3/ul (0.83-4.51); Lymphocyte % 26.4 % (19-41); Mean Corp Hgb Conc 32.1 g/dL (32-36); Mean Corpuscular Hgb 30.9 pg (27.0-32.0); Mean Corpuscular Volume 96.4 fL (81-99); Mean Platelet Vol. 10.2 fl (6.2-12.0); Monocyte# 0.67 X10^3/uL; Monocyte% 8.3 % (0-10); NRBC Flagged by Analyzer 0 % (0-5); Neutrophil # 5.03 X10^3/uL (2.7-7.7); Platelet Count 300 K/mm3 (150-450); RBC Distribution Width CV 13.6 % (11.6-14.6); RBC Distribution Width SD 47.9 fl (35.1-43.9); Red Blood Count 4.14 M/mm3 (4.2-5.4); White Blood Count 8.1 K/mm3 (4.4-11.0)
--- NOTE | 2024-05-18 18:08 | CT_ITS ---
STUDY: CT LEFT HIP REASON FOR EXAM: Female, 83 years old. trauma, pain CONTRAST: None. TECHNIQUE: Transaxial imaging of the hip was performed with reformatted sagittal and coronal images. The protocol utilizes one or more of the following dose reduction techniques: automated exposure control, adjustment of mA and/or kV according to patient size,and/or use of iterative reconstruction technique. COMPARISON: FINDINGS: HIP Narrowed joint space with subchondral cystic changes and sclerosis of the femoral head and acetabular spurring.. Normal femoral neck and intertrochanteric region. VISUALIZED OSSEOUS PELVIS Normal superior and inferior pubic rami. Normal pubic symphysis. Normal bilateral ischial tuberosity. Normal visualized iliac wing, sacroiliac joint, and sacral ala. There is a small hematoma in the subcutaneous fat lateral to the femoral neck. CT/Extremity Lower without Contra IMPRESSION: Severe osteoarthritic changes. No evidence for acute fracture or dislocation. Electronically Signed: Giles Lockwood MD at 19:02 EDT ,
[2024-05-18 18:24] VITALS: BP 158/62; PULSE 72; RESP 16; O2SAT 94
[2024-05-18 18:27] LABS: Anion Gap 7 (5-15); BUN 27 mg/dL (7-18); BUN/Creat Ratio 25.2 RATIO (10-20); Chloride 108 mmol/L (98-107); Creatinine, Serum 1.07 mg/dL (0.55-1.02); EST Glomerular Filtration Rate 52 mL/min (>60); Est Glom Filt Rate - Afr Amer 63 mL/min (>60); Estimated Creatinine Clearance 43.42 ml/min; Glucose 101 mg/dL (74-106); Potassium 4.4 mmol/L (3.5-5.1); Sodium Level 139 mmol/L (136-145)
[2024-05-18 20:00] VITALS: BP 134/66; PULSE 70; RESP 20; TEMP 36.7; O2SAT 92
== END 2024-05-18 20:32 | disposition home or self-care (01) ==
PROVIDERS: Physician Assistant; Emergency Provider Emergency Medicine; PCP Family Medicine Geriatric Medicine; Visit Provider Emergency Medicine
DX: S70.02XA Contusion of left hip, initial encounter (principal); J44.9 Chronic obstructive pulmonary disease, unspecified; I10 Essential (primary) hypertension; Z87.891 Personal history of nicotine dependence; W18.39XA Other fall on same level, initial encounter; Y93.01 Activity, walking, marching and hiking; G47.33 Obstructive sleep apnea (adult) (pediatric); Z99.89 Dependence on other enabling machines and devices; E03.9 Hypothyroidism, unspecified; Z79.899 Other long term (current) drug therapy; Z79.890 Hormone replacement therapy; Z79.51 Long term (current) use of inhaled steroids; K21.9 Gastro-esophageal reflux disease without esophagitis; F41.9 Anxiety disorder, unspecified; Z79.82 Long term (current) use of aspirin; Z98.51 Tubal ligation status; Z90.49 Acquired absence of other specified parts of digestive tract
CPT/HCPCS: 73140; 73502; 73700; 80048; 85025; 96374; 96375; 96376; 99284; A4216; J2405

== ENCOUNTER → 2024-09-04 | Outpatient (CLI) | payer MEDICARE, SELFPAY ==
[2024-09-04 16:28] LABS: Absolute Lymphocyte Count 1.77 X10^3/uL (0.83-4.51); Absolute Neutrophil Count 3.9 X10^3/uL (2.0-7.7); Basophil# 0.07 X10^3/uL; Basophil% 1.1 % (0-1); Eosinophil# 0.16 X10^3/uL; Eosinophils% 2.5 % (0-5); Hematocrit 39.5 % (37-47); Hemoglobin 12.9 g/dL (12.0-15.0); Lymphocyte # 1.77 X10^3/ul (0.83-4.51); Lymphocyte % 28.2 % (19-41); Mean Corp Hgb Conc 32.7 g/dL (32-36); Mean Corpuscular Hgb 30.7 pg (27.0-32.0); Mean Platelet Vol. 9.8 fl (6.2-12.0); Monocyte# 0.36 X10^3/uL; Monocyte% 5.7 % (0-10); NRBC Flagged by Analyzer 0 % (0-5); Neutrophil % 62.2 % (47-70); Platelet Count 279 K/mm3 (150-450); RBC Distribution Width CV 13.3 % (11.6-14.6); RBC Distribution Width SD 45.2 fl (35.1-43.9); White Blood Count 6.3 K/mm3 (4.4-11.0)
[2024-09-04 16:50] LABS: Bilirubin, Direct 0.06 mg/dL (0.00-0.30); Magnesium 2.3 mg/dL (1.6-2.6)
[2024-09-04 16:59] LABS: Prothrombin Time (Protime)PT. 13.3 SECONDS (11.7-14.9)
[2024-09-04 17:01] LABS: ALB/GLOB Ratio 0.8 RATIO (0.9-2.4); AST(SGOT) 17 U/L (15-37); Alanine Aminotransfer ALT/SGPT 14 U/L (13-56); Albumin, Serum 3.4 g/dL (3.2-5.0); Alkaline Phosphatase 68 U/L (45-117); Anion Gap 7 (5-15); BUN 23 mg/dL (7-18); BUN/Creat Ratio 20.5 RATIO (10-20); Calcium,Total 9.1 mg/dL (8.5-10.1); Chloride 107 mmol/L (98-107); Cholesterol 206 mg/dL (200); Creatinine, Serum 1.12 mg/dL (0.55-1.02); EST Glomerular Filtration Rate 50 mL/min (>60); Est Glom Filt Rate - Afr Amer 60 mL/min (>60); Globulin 4.1 g/dL (2.2-4.2); Glucose 80 mg/dL (74-106); High Density Lipoprotein 34 mg/dL; Potassium 4.4 mmol/L (3.5-5.1); Protein, Total 7.5 g/dL (6.4-8.2); Sodium Level 140 mmol/L (136-145); Triglycerides 295 mg/dL; Very Low Density Lipoprotein 59 mg/dL (5-40)
[2024-09-04 17:01] LABS: Partial Thromboplast Time 26.7 Seconds (24.1-36.2)
[2024-09-04 22:21] LABS: Vitamin D,25 Hydroxy 13.4 ng/mL
== END | disposition home or self-care (01) ==
LOC: POLAB3 15:09
PROVIDERS: Anesthesiology; PCP Family Medicine Geriatric Medicine; Visit Provider Family Medicine Geriatric Medicine
DX: Z01.818 Encounter for other preprocedural examination (principal); I10 Essential (primary) hypertension; E55.9 Vitamin D deficiency, unspecified; E78.5 Hyperlipidemia, unspecified
CPT/HCPCS: 36415; 80053; 80061; 82248; 82306; 83735; 84443; 85025; 85610; 85730; 87081

== ENCOUNTER 2024-09-29 07:08 | Inpatient (IN) | payer MEDICARE, SELFPAY ==
--- NOTE | 2024-09-02 00:19 | PAT.ANE_ITS ---
Pre-Assessment Diagnosis/Proposed Procedure Planned Operative Procedure(s): DIRECT ANTERIOR LEFT TOTAL HIP ARTHROPLASTY Anesthesia History Anesthesia History - doctor of audiology: Anesthesia History - doctor of audiology Hx Hospitalization Yes: 03/11/2024 FX SHOULDER 09/01/24 10:17 LEFT Any Problems With Anesthesia No 09/01/24 10:17 Cholinesterase deficiency No 09/01/24 10:17 You/Your Family Experience No 09/01/24 10:17 fever (hyperthermia) with Relationship Recent Exposure to Contagious No 07/22/20 10:57 Disease Does patient have nerve No 09/01/24 10:17 stimulator Patient instructed to have device shut off --Does patient have Pacemaker or ICD? When Was Last Pacemaker Check QUESTION #4 FULL TEXT: You/Your Family Experience fever (hyperthermia) with Anesthesia Last Oral Intake Last Oral intake: Last Oral Intake NPO since Meds taken in AM with sips of water? Meds patient instructed to take am of surgery PONV PONV - doctor of audiology: PONV - doctor of audiology Female Yes 09/01/24 10:17 HX of Motion Sickness No 09/01/24 10:17 HX of N/V After Surgery No 09/01/24 10:17 Non-Smoker Yes 09/01/24 10:17 Duration of Surgery greater Yes 09/01/24 10:17 than 60 minutes Number of Risk Factors 3 09/01/24 10:17 PONV Score Moderate Risk 09/01/24 10:17 Height & Weight Height & Weight: Anesthesia: Height & Weight Height 5 ft 2 in 05/18/24 16:23 Respiratory Assessment Respiratory Assessment - doctor of audiology: Respiratory Tract Infection Hx - doctor of audiology Hx Respiratory Tract Infection No 09/01/24 10:17 STOP Sleep Apnea STOP Sleep Apnea - doctor of audiology: STOP Sleep Apnea - doctor of audiology Hx Hypertension Yes: CONTROLLED WITH MED 09/01/24 10:17 Hx Sleep Apnea Yes 09/01/24 10:17 CPAP Yes 09/01/24 10:17 BIPAP No 09/01/24 10:17 Do you snore loudly (louder than talking or can be heard Do you often feel tired/ fatigued/ sleepy during daytime? Has anyone observed you stop breathing during sleep? STOP Results Positive 09/01/24 10:17 QUESTION #5 FULL TEXT : Do you snore loudly (louder than talking or can be heard through closed doors)? Tobacco Use History Tobacco Use History - doctor of audiology: Tobacco Use History - doctor of audiology Tobacco Use Smoking Status Former smoker 09/01/24 10:17 Hx Tobacco Use No 09/01/24 10:17 Years Smoking Packs Smoked per Day Smoking Cessation Date was No - quit smoking greater 09/01/24 10:17 within the last 15 years than 15 years ago Hx Smoking Cessation Date 07/20/75 09/01/24 10:17 Hx Smoking Cessation No 09/01/24 10:17 Counseling Hematologic Medial History Hematologic Hx - doctor of audiology: Hematologic Medical Hx - gastroenterology physician Hx of Blood Transfusion No 09/01/24 10:17 Hx of Transfusion in last 3 No 09/01/24 10:17 Months Date of Last Transfusion (if within last 3 months) Ever experience any problems No 09/01/24 10:17 with transfusion(s)? Specify any problems Hx of Preganancy in last 3 No 09/01/24 10:17 Months Nurse Filling Out Transfusion DSCHRIBER 09/01/24 10:17 & Questions: Date: 09/01/24 09/01/24 10:17 Time: 10:20 09/01/24 10:17 Patient unable to answer at this time (ie. confused, unrespo /Reproduction History /Reproductive History - doctor of audiology: /Reproductive Hx- doctor of audiology Hx Now No 09/01/24 10:17 Gestational Age (in weeks): EDC: Hx Hx Para Hx Section SAB No 09/01/24 10:17 PFSH Medical History (Updated 09/01/24 @ 10:30 by Sanjana Grimm) Wears hearing aid Wears dentures Post-menopausal Depression Bladder disease Uses wheelchair Walker as ambulation aid Easy bruising Back pain Restless legs Former smoker Leg cramps History of pain when walking History of edema History of echocardiogram History of stress test History of Holter monitoring Hypertension Cardiology follow-up encounter History of atrial fibrillation MRSA infection Hx of deep venous thrombosis Anxiety GERD (gastroesophageal reflux disease) CPAP (continuous positive airway pressure) dependence Migraines Hypothyroidism History of asthma History of COPD History of arthritis History of Right Foot Fracture Home Medications ?Medication ?Instructions ?Recorded ?Last Taken ?Type levocetirizine 5 mg tablet 5 mg PO DAILY ALLERGIES 04/06/20 03/25/21 History levothyroxine 50 mcg tablet 75 mcg PO DAILY THYROID 06/21/22 Unknown History fluticasone fur. 100 mcg-umeclid 1 inh inhalation DAILY asthma 12/27/22 Unknown History 62.5 mcg-vilant 25 mcg inhalat.powder (Trelegy Ellipta) baclofen 10 mg tablet 10 mg PO QHS muscle relaxer 03/09/24 Unknown History citalopram 20 mg tablet 20 mg PO DAILY antidepressant 03/09/24 Unknown History omeprazole 40 mg capsule,delayed 40 mg PO DAILY acid reflux 03/09/24 Unknown History release acetaminophen 500 mg tablet 1,000 mg (2 x 500 mg) PO Q8 #0 tabs 03/25/24 Unknown Rx aspirin 81 mg tablet,delayed 81 mg PO DAILYCM #0 tabs 03/25/24 Unknown Rx release tramadol 50 mg tablet 50 mg PO Q6H PRN PRN Pain Score 03/25/24 Unknown Rx 1-5 Or Pre Pt/Ot 7 days #28 tabs metoprolol tartrate 25 mg tablet 25 mg PO BID #180 TABLETS 06/04/24 Unknown Rx sennosides 8.6 mg-docusate sodium 2 tab PO BID PRN constipation 09/01/24 Unknown History 50 mg tablet (Stimulant Laxative Plus) Allergy/AdvReac Type Severity Reaction Status Date / Time Penicillins Allergy Severe facial Verified 09/01/24 10:08 swelling Family History Mother Hypertension CVA (cerebral vascular accident) Father Hypertension CVA (cerebral vascular accident) Surgical History (Updated 09/01/24 @ 10:30 by Sanjana Grimm) History of esophagogastroduodenoscopy (EGD) Hx of elbow surgery History of foot surgery Hx of tubal ligation S/P foot surgery, right History of appendectomy History of cholecystectomy Social History household members: spouse Smoking Status: Former smoker alcohol intake: never substance use type: does not use Audit: Pertinent Findings Pertinent Findings EKG Perinent findings: EKG done on August 20, 2024 demonstrates normal sinus rhythm Stress test pertinent findings: Stress test from May 2021 was negative for EKG changes of ischemia, negative for induced chest pain, with no evidence of significant ischemia or infarction on SPECT. LVEF greater than 70%. Echo (EF%) pertinent findings: TTE done on December 2021 demonstrates normal LV size with normal LV systolic function, LVEF 65%. Mild concentric left ventricular hypertrophy with grade 1 diastolic dysfunction. Consult pertinent findings: Patient is seeing cardiology on August 20 2024 and they did not believe that she needed any further workup for her history of palpitations from 2020. Additional pertinent findings: Holter monitor from June 2022 demonstrated normal sinus rhythm with ventricular ectopy 0.2%, S VE 0.1%. Recommendation Anesthesia Recommendation Anesthesia recommendation: OPTIMIZED for anesthesia
--- NOTE | 2024-09-22 13:25 | HP.PCM_ITS ---
History and Physical Patient Name: Dragan Alarcon : 1940From:? RENEE TINAJERO PA-C DATE OF PRE-OPERATIVE EXAM: 09/22/2024 DATE OF SURGERY:? 09/29/2024 SCHEDULED PROCEDURE:? Left direct anterior total hip arthroplasty HISTORY OF PRESENT ILLNESS: Preoperative history and physical exam was performed on September 22, 2024.? This is an 83-year-old female who has had ongoing pain in the left hip for over 4 years.? Her pain can reach 10/10 when standing or walking.? On average the pain as 5-6/10.? She has had 2 previous falls resulting in a broken shoulder and sprain finger.? The shoulder is doing much better.? Her left hip pain has been constant and aching.? Pain is increased was going up and down stairs and walking.? She has difficulty with activities of daily living including bathing/showering, housework, shopping and leisure activities.? She gets increased groin pain.? She does feel the left leg feels shorter than her right.? She has been using a wheelchair and can only walk 20 feet at a time.? Patient has tried heat and elevation with minimal relief.? She has tried physical therapy without relief, ostomy care nurse without relief, and oral medications including Tylenol and tramadol.? She has also been on muscle relaxers.? She is currently getting her tramadol from primary care physician Dr. Knott.? Patient has been requiring the use of the wheelchair and walker.? She denies past history of surgery on the left hip.? After failing conservative measures and discussing all treatment options with Dr. Rene Pennington, the patient does wish to proceed with a direct anterior left total hip arthroplasty.? She has obtain surgical clearance from the primary care provider Dr. 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 Peng.? Patient has medical history pertinent for hypothyroidism, hypertension, gastroesophageal reflux disease, chronic obstructive pulmonary disease, sleep apnea with use of CPAP, depression, insomnia, chronic low back pain, past history of DVT right lower extremity in 2020 after COVID, atrial fibrillation, and constipation.? She has elevated kidney function and decreased GFR without diagnosis of chronic kidney disease.? Patient denies any recent chest pain, shortness of breath, fevers chills or recent infections.? We did reach out to primary care provider and they do want orthopedics to manage pain medication postoperatively. REVIEW OF SYSTEMS: Review Of Systems: Constitutional: Reports change in appetite, but denies fever and weight change. Cardiovasular: Reports irregular heartbeat, but denies chest pain and heart murmur. Respiratory: Reports cough, shortness of breath and wheezing, but denies pneumonia and tuberculosis. Gastrointestinal: Reports constipation and heartburn, but denies diarrhea, nausea, rectal itching, bloody stools and vomiting. Genitourinary: Reports incontinence. Musculoskeletal: Reports gait disturbance, leg swelling, pain, trouble walking and weakness. Skin: Denies Raynaud's, history of shingles and tattoo. Neurological: Denies ambulatory dysfunction, dizziness, numbness/tingling and tremor. Psychiatric: Reports depression, but denies anxiety, insomnia and stress. Hematologic/Lymphatic: Reports bleeding/bruising tendency, but denies anemia and past transfusion. Reviewed and updated. PAST MEDICAL HISTORY: Advance Care Plan: No Advance Directives Effective Date: 07/29/2020 Past Medical History: Medical Problems: Arthritis, Asthma, Hard of Hearing Thyroid Disease - hypo High Blood Pressure, Acid Reflux Chronic Obstructive Pulmonary Disease (COPD) - chronic - sees Dr. Monreal Tachycardia, Sleep Apnea, Depression, insomnia, hyperlipidemia, low back pain, headache, chronic cough History Of Blood Clots/ DVT - (2020) right calf radiculopathy - lumbar Covid- 19, Afib, constipation Accidents: Fracture - (03/11/2024) left humerus fracture Fall - (05/18/2024) [facility] Surgical Hx: LT Elbow Infected Olecranon Bursa I & D - (07/22/2020) SAW @ [facility] Gallbladder, Tubal Ligation, Appendectomy, foot surgery Anesthesia Complications: None Assistive Devices: Dentures, Cpap, Walker, wheel chair Reviewed and updated. SOCIAL HISTORY: Social History: Marital: .Occupation: Retired.Work Status: Retired.Hand Dominance: Right- handed. Personal Habits:? Cigarette Use: Former.Smokeless Tobacco: Never Used Smokeless Tobacco.E-Cigarette Use: Never used.Alcohol: Denies use.Drug Use: Denies Use.Enjoy Exercising: Never Exercises. Reviewed, no changes. VITALS: Ht: 62 Wt: 193lb Wt k.545 BMI: 35.3 BP: 128/80 Pulse: 67 Resp: 16 T: 97.5 T: 36.4C Pain Level: 10 O2SatR: 97 ALLERGIES: Penicillins Vicodin MEDICATIONS: Tramadol HCL 50 mg 1-2 by mouth every 6 hours as needed pain, Acetaminophen 500 mg every 8 hours, Aspirin 81 mg daily, Baclofen 10 mg 2 at bedtime, Omeprazole 4 0 mg daily, Citalopram Hydrobromide 20 mg daily, Metoprolol Tartrate 25 mg twice a day, Levocetirizine Dihydrochloride 5 mg daily, Levothyroxine Sodium 50 mcg 1po qday, Tizanidine HCL 4 mg as needed, Trelegy Ellipta 100-62.5-25 mcg/Act, Doxepin HCL 10 mg daily, Mucinex 600 mg as needed, Budesonide 0.5 mg/2ml as needed PRE-OP EXAM: General appearance:NORMAL? Other: Eyes: Conjunctivae and lids: NORMAL? Pupils: ERR Ears, Nose, Mouth, and Throat: NORMAL? Other: Inspection of lips, teeth and gums: NORMAL?? Other: Neck: Examination of neck: no masses noted. Respiratory: Assessment of respiratory effort: NORMAL?? Other: ? Auscultation of lungs: clear to auscultation no wheezes, rhonchi or rales. Cardiovascular:? Auscultation of heart: regular rate and rhythm, no murmurs, gallops or rubs. PHYSICAL EXAMINATION: On exam patient presents today in a wheelchair.? Exam was limited due to pain.? She has tenderness to palpation over the lateral left hip.? Limited range of m otion secondary to pain.? Sensation intact to light touch.? Per previous documentation left leg is 3 mm shorter than the right leg. IMAGING STUDIES: Previous x-rays of the left hip reveal severe left hip osteoarthritis with [id number] joint space narrowing with flattening of the femoral head and femoral head cysts.? Large bone cysts are present on CT scan without fractures. IMPRESSION: 1.? Severe left hip osteoarthritis 2.? Hypertension 3.? History of DVT 2020 4.? Gastroesophageal reflux disease 5.? Hypothyroidism 6.? Chronic obstructive pulmonary disease 7.? Depression 8.? Obstructive sleep apnea with use of CPAP 9.? Insomnia 10.? Hyperlipidemia 11.? Chronic low back pain with radiculopathy 12.? History of atrial fibrillation 13.? Constipation 14.? Obesity with BMI 35.3 15.? Elevated kidney function and decreased GFR without diagnosis of chronic kidney disease PLAN: Dr. Rene Pennington did discuss and review with the patient all treatment options including surgical versus nonsurgical options.? I will continue plan established by Dr. Rene Pennington.? Patient does wish to proceed with the above-stated procedure.? Potential risks, benefits, and complications of the procedure were d iscussed in detail including but not limited to , infection, nerve and blood vessel damage, persistent pain, numbness, tingling, paresthesias, blood clot, pulmonary embolism, and requirement for possible further surgery.? The patient expressed full understanding and has no further questions for the doctor.? Patient does agree to proceed with the above-stated procedure and has signed the surgery consent form. POST-OP MEDICATION PLAN: Pain Medications:? Postoperative pain regimen will be initiated by Dr. Rene Pennnigton in the hospital.? We did reach out to primary care provider who is curr ently giving him narcotics and would like orthopedics to manage narcotics postoperatively.? We will avoid nonsteroidal anti-inflammatories due to her BUN/creatinine and GFR.? Patient has a walker that she will bring to the hospital.? She reports that her primary care provider instructed her that she will be able to go to the transitional care unit postoperatively.? I did advise her that social work assistant will be on board for Reser with insurance and see and availability of postoperative discharge planning.? She did voice understanding. DVT Prophylaxis: Due to past history of DVT patient will require Eliquis postoperatively for 2 weeks.? After 2 weeks she will then use aspirin 81 mg twice daily for an additional 2 weeks. This dictation was created using voice recognition software. Phonetic and/or grammatical errors may exist. ___? I have re-examined the patient.? There are no clinical changes since date of exam. ___? See progress notes for changes. ___? Dictated on admission Date: ? Time: Signature:
[2024-09-29] VITALS (25 sets, daily range): BP systolic 81–122; BP diastolic 45–75; PULSE 62–93; RESP 16–20; TEMP 36.2–36.9; O2SAT 88–100; BMI 34.7
[2024-09-29] MEDS: Lactated Ringers 1,000 ML 999 ML IV (06:17)
[2024-09-29] MEDS: Gabapentin 600 MG Tablet PO (06:18)
[2024-09-29] MEDS: Acetaminophen 500 MG Tablet 1000 MG PO ×3 (06:18→20:43)
[2024-09-29] MEDS: Magnesium 1 GM over 15 mins IV (06:20)
[2024-09-29] MEDS: Vancomycin HCl 1,250 MG in 0.9% Normal Saline (250mL Bag) 250 ML 167 MG IV (06:23)
--- NOTE | 2024-09-29 06:30 | RAD_ITS ---
Fluoroscopic guidance was used intraoperatively. Please refer to the operative note for further details. Total 7 spot images. Total radiation dose 1.69 mGy. Total fluoroscopy time 9.8 seconds. Reading Location: [facility]
--- NOTE | 2024-09-29 06:40 | PCM.PRE.AN2 ---
ASA Classification* ASA Classification ASA Classification: 2 Assessment & Plan Anesthesia* Anesthesia Assessment Anesthesia Assessment: Discussed sedation and/or anesthesia options, risks, benefits, and alternatives with patient/parents/legal guardian/POA. Questions invited. The patient/parents/legal guardian/POA seems to understand and agrees to proceed with anesthesia plan. Reviewed the physical assessment, medical history, allergy history and patient home medications list prior to surgery/procedure/anesthetic and documented any changes. Performed airway and anesthesia risk assessments. Anesthesia Type Anesthesia Type: Spinal Anesthesia Focused Assessment* Temperature: 98.4 F Pulse Rate: 62 Blood Pressure: 122/55 Respiratory Rate: 18 Pulse Ox: 97 Airway Assessment Mouth opens: >3 cm Mallampati Score: II Focused Labs Anesthesia Preop lab: CBC WBC 6.3 K/mm3 (4.4-11.0) 09/04/24 15:09 09/04/24 RBC 4.20 M/mm3 (4.2-5.4) 09/04/24 15:09 09/04/24 Hgb 12.9 g/dL (12.0-15.0) 09/04/24 15:09 09/04/24 Hct 39.5 % (37-47) 09/04/24 15:09 09/04/24 Plt Count 279 K/mm3 (150-450) 09/04/24 15:09 09/04/24 CHEMISTRY Potassium 4.4 mmol/L (3.5-5.1) 09/04/24 15:09 09/04/24 Sodium 140 mmol/L (136-145) 09/04/24 15:09 09/04/24 Magnesium 2.3 mg/dL (1.6-2.6) 09/04/24 15:10 09/04/24 BUN 23 mg/dL (7-18) H 09/04/24 15:09 09/04/24 Creatinine 1.12 mg/dL (0.55-1.02) H 09/04/24 15:09 09/04/24 Glucose 80 mg/dL (74-106) 09/04/24 15:09 09/04/24 TSH 3.360 uIU/mL (0.358-3.740) 09/04/24 15:09 09/04/24 COAG PT 13.3 SECONDS (11.7-14.9) 09/04/24 15:10 09/04/24 Pre-Assessment Diagnosis/Proposed Procedure Planned Operative Procedure(s): DIRECT ANTERIOR LEFT TOTAL HIP ARTHROPLASTY Anesthesia History 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 When Was Last Pacemaker Check QUESTION #4 FULL TEXT: You/Your Family Experience fever (hyperthermia) with Anesthesia Last Oral Intake Last Oral intake: Last Oral Intake NPO since 03:00 09/29/24 06:07 Meds taken in AM with sips of Yes 09/29/24 06:07 water? Meds patient instructed to take am of surgery PONV PONV - sewing machine operator: PONV - sewing machine operator Female Yes 09/01/24 10:17 HX of Motion Sickness No 09/01/24 10:17 HX of N/V After Surgery No 09/01/24 10:17 Non-Smoker Yes 09/01/24 10:17 Duration of Surgery greater Yes 09/01/24 10:17 than 60 minutes Number of Risk Factors 3 09/01/24 10:17 PONV Score Moderate Risk 09/01/24 10:17 Height & Weight Height & Weight: Anesthesia: Height & Weight Height 5 ft 3 in 09/29/24 06:07 Weight: 88.813 kg 09/29/24 06:07 Body Mass Index (BMI) 34.7 09/29/24 06:07 Respiratory Assessment Respiratory Assessment - sewing machine operator: Respiratory Tract Infection Hx - sewing machine operator Hx Respiratory Tract Infection No 09/01/24 10:17 STOP Sleep Apnea STOP Sleep Apnea - sewing machine operator: STOP Sleep Apnea - sewing machine operator Hx Hypertension Yes: CONTROLLED WITH MED 09/01/24 10:17 Hx Sleep Apnea Yes 09/01/24 10:17 CPAP Yes 09/01/24 10:17 BIPAP No 09/01/24 10:17 Do you snore loudly (louder than talking or can be heard Do you often feel tired/ fatigued/ sleepy during daytime? Has anyone observed you stop breathing during sleep? STOP Results Positive 09/01/24 10:17 QUESTION #5 FULL TEXT : Do you snore loudly (louder than talking or can be heard through closed doors)? 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 Specify any problems Hx of Preganancy in last 3 No 09/01/24 10:17 Months Nurse Filling Out Transfusion DSCHRIBER 09/01/24 10:17 & Questions: Date: 09/01/24 09/01/24 10:17 Time: 10:20 09/01/24 10:17 Patient unable to answer at this time (ie. confused, unrespo /Reproduction History /Reproductive History - sewing machine operator: /Reproductive Hx- sewing machine operator Hx Now No 09/01/24 10:17 Gestational Age (in weeks): EDC: Hx Hx Para Hx Section SAB No 09/01/24 10:17 Active Medications Active Medications: Current Medications Generic Name Dose Route Start Last Admin Trade Name Freq PRN Reason Stop Dose Admin Acetaminophen 1,000 mg 09/29/24 07:30 09/29/24 06:18 Acetaminophen 500 Mg Tablet PO 09/29/24 07:31 1,000 mg X1 ONE Administration Tranexamic Acid 2,000 mg/ 0 mg 09/29/24 07:30 Sodium Chloride 100 ml OPERA.SITE 09/29/24 07:31 X1 ONE Sodium Chloride 78.4 ml/ 0 ml 09/29/24 07:30 Ropivacaine 200 mg/ IV 09/29/24 07:31 Epinephrine HCl 0.6 mg/ X1 ONE Morphine Sulfate 5 mg Dexamethasone Sodium Phosphate 10 mg 09/29/24 07:30 Dexamethasone 10 Mg/Ml Vial IV 09/29/24 07:31 X1 ONE Gabapentin 600 mg 09/29/24 07:30 09/29/24 06:18 Gabapentin 600 Mg Tablet PO 09/29/24 07:31 600 mg X1 ONE Administration Lactated Ringer's 1,000 mls @ 999 mls/hr 09/29/24 07:30 09/29/24 06:17 IV 09/29/24 08:30 999 mls/hr .Q1H1M WHIT Administration Clindamycin Phosphate 900 mg in 50 mls @ 75 mls/hr 09/29/24 07:30 Cleocin IV 09/29/24 08:09 PREOP ONE Vancomycin HCl 1,250 mg/ 275 mls @ 167 mls/hr 09/29/24 06:00 09/29/24 06:23 Sodium Chloride IV 09/29/24 07:38 167 mls/hr PREOP ONE Administration Magnesium Sulfate 1 gm/ 102 mls @ 408 mls/hr 09/29/24 07:30 09/29/24 06:20 Dextrose IV 09/29/24 07:44 408 mls/hr X1 ONE Administration Insulin Human Lispro 1 - 6 unit 09/29/24 07:30 Insulin Lispro 100 Unit/Ml Insuln.Pen SC 09/29/24 13:30 Q4H PRN PRN BG>/= 180, SEE PROTOCOL Protocol PFSH Medical History Wears hearing aid Wears dentures Post-menopausal Depression Bladder disease Uses wheelchair Walker as ambulation aid Easy bruising Back pain Restless legs Former smoker Leg cramps History of pain when walking History of edema History of echocardiogram History of stress test History of Holter monitoring Hypertension Cardiology follow-up encounter History of atrial fibrillation MRSA infection Hx of deep venous thrombosis Anxiety GERD (gastroesophageal reflux disease) CPAP (continuous positive airway pressure) dependence Migraines Hypothyroidism History of asthma History of COPD History of arthritis History of Right Foot Fracture Home Medications ?Medication ?Instructions ?Recorded ?Last Taken ?Type levocetirizine 5 mg tablet 5 mg PO DAILY ALLERGIES 04/06/20 09/28/24 18:00 History levothyroxine 50 mcg tablet 75 mcg PO DAILY THYROID 06/21/22 09/29/24 03:00 History fluticasone fur. 100 mcg-umeclid 1 inh inhalation DAILY asthma 12/27/22 09/28/24 08:00 History 62.5 mcg-vilant 25 mcg inhalat.powder (Trelegy Ellipta) baclofen 10 mg tablet 10 mg PO QHS muscle relaxer 03/09/24 09/28/24 19:00 History citalopram 20 mg tablet 20 mg PO DAILY antidepressant 03/09/24 09/28/24 08:00 History omeprazole 40 mg capsule,delayed 40 mg PO QHS acid reflux 03/09/24 09/28/24 19:00 History release acetaminophen 500 mg tablet 1,000 mg (2 x 500 mg) PO Q8 #0 tabs 03/25/24 09/28/24 19:00 Rx aspirin 81 mg tablet,delayed 81 mg PO DAILYCM #0 tabs 03/25/24 09/24/24 Rx release tramadol 50 mg tablet 50 mg PO Q6H PRN PRN Pain Score 03/25/24 09/28/24 19:00 Rx 1-5 Or Pre Pt/Ot 7 days #28 tabs metoprolol tartrate 25 mg tablet 25 mg PO BID #180 TABLETS 06/04/24 09/29/24 03:00 Rx sennosides 8.6 mg-docusate sodium 2 tab PO BID PRN constipation 09/01/24 Unknown History 50 mg tablet (Stimulant Laxative Plus) Allergy/AdvReac Type Severity Reaction Status Date / Time Penicillins Allergy Severe facial Verified 09/29/24 05:54 swelling latex Allergy Intermediate itch and Verified 09/29/24 05:54 burn Family History Mother Hypertension CVA (cerebral vascular accident) Father Hypertension CVA (cerebral vascular accident) Surgical History History of esophagogastroduodenoscopy (EGD) Hx of elbow surgery History of foot surgery Hx of tubal ligation S/P foot surgery, right History of appendectomy History of cholecystectomy Social History household members: spouse Smoking Status: Former smoker alcohol intake: never substance use type: does not use Review of Systems (Anesthesia) ROS Narrative System reviewed and no additional complaints, except as documented.
[2024-09-29 06:42] LABS: Bedside Glucose 79 mg/dL (74-106)
--- NOTE | 2024-09-29 07:10 | RAD_ITS ---
EXAM: XR Left Hip With Pelvis When Performed, 1 View CLINICAL INDICATION: TECHNIQUE: Frontal view of the left hip with pelvis when performed. COMPARISON: No relevant prior studies available. FINDINGS: BONES/JOINTS: Total hip replacement. Intact hardware. No acute fracture. No dislocation. SOFT TISSUES: Soft tissue emphysema and swelling. RAD/Hip Min 2 Views (Portable) IMPRESSION: Status post total hip replacement in anatomic position. Reading Location: [facility]
[2024-09-29] MEDS: Clindamycin 900 MG/50 ML BAG 75 MG IV (07:30)
--- NOTE | 2024-09-29 07:30 | HIP_PTH ---
PATIENT: ALEJANDRA SHERMAN LOC: [facility] U#:[id number] AGE/SX: 83/F ROOM: NC320 RE10/02/[address]: Dr. Rene Pennington MD : 1940 BED: 1 DIS: 10/03/2024 SPEC #: [id number] RECD: 09/29/24 09:55 STATUS: JOSE CHONG #: [id number] POOJA: 09/29/24 07:[address]: Rene Pennington DEPT: SURGICAL PATHOLOGY RECD BY: Louise Ferraro ENTERED: 09/29/24 11:18 SP TYPE: TOTAL HIP OTHR DR: Dr. Rancho Knott MD Tissues: Hip, NOS Procedures: Decalcification bone/plaque Surgery Specimen Level IV HEADER OPERATION: Total hip anterior approach PRE-OP DIAGNOSIS: Severe left hip osteoarthritis TISSUE SUBMITTED: Left hip bone and tissue MICROSCOPIC DIAGNOSIS Left hip bone and soft tissue, total hip replacement/resection: Femoral head with degenerative osteoarthritic changes. : 10/02/2024 MICROSCOPIC DESCRIPTION Slides are reviewed. GROSS DESCRIPTION Received is one container labeled with the patient's name and designated bone and soft tissue left hip. The specimen consists of a appiah femoral head with portion of femoral neck. The femoral head measures 4.5 x 5 x 4.5 cm. Also present in the container is a piece of bone consisting of femoral neck measuring 4.5 x 2.5 x 1.5cm. The articular surface displays prominent osteophyte formation, eburnation and bone erosion. Also present in the specimen container are multiple irregular fragments of bone reamings and appiah-yellow soft tissue measuring in aggregate 5 x 5 x 1.0 cm. Automatic Drill Operator sections are submitted in two cassettes as follows: 1 - bone reaming, 2 - femoral head after decalcification. / YEE. 09/29/2024 TC:5 CPT: 91896, 59520
[2024-09-29] MEDS: dexAMETHasone 10 MG/ML Vial IV (07:57)
[2024-09-29] MEDS: Joint Pain Solution (NO KETOROLAC) IV (08:15)
[2024-09-29] MEDS: TXA in NS 100ml (Placed in Wound) OPERA.SITE (08:47)
--- NOTE | 2024-09-29 08:49 | PCM.OPRPT ---
Operative Report (Standard) Operative Information Date of Procedure: 09/29/24 Pre-Operative Diagnosis: Left hip primary osteoarthritis Post-Operative Diagnosis: Left hip primary osteoarthritis Surgery/Procedure Performed: Minimally invasive direct anterior left total replacement bundle tier and labeler: Yes Dial Mounter: Jj Hensley Tasks completed by administrative sales assistant: Other (See operative report) Additional assistant manager?: No Type of Anesthesia: Spinal RN Documented Start/Stop Times: Operation Date: 09/29/24 07:30 Case Time Into Pre-Op 09/29/24 05:32 Out of Pre-Op 09/29/24 07:23 Anesthesia Start 09/29/24 07:26 Into Room 09/29/24 07:26 Procedure Start 09/29/24 07:47 Procedure End 09/29/24 09:16 Anesthesia End 09/29/24 09:21 Out of Room 09/29/24 09:21 Procedure Start Time: 07:47 Procedure Stop Time: 09:16 Select all DRAINS/GRAFTS/IMPLANTS that apply: Prosthetic device Prosthetic device details: See operative report Special Medications: Clinda and vancomycin. Estimated Blood Loss: 300 Fluids Replaced: 1000 mL crystalloid Specimen collected: Yes Description of specimen(s) removed: Bony cuts Description of surgery: Components used: 1. Insignia Orchard femoral stem size 5 high offset 2. Lex trident 2 acetabular shell size 46 mm 3. Orchard X3 polyethylene 36C 4. Lex Biolox delta 22.2mm, 8mm femoral head 5. Lex cobalt-chromium MDM size C liner Brief history operative indications: 83 yo F who failed conservative measures for their hip osteoarthritis. X-rays were consistent with osteoarthritis including joint space narrowing, osteophyte formation and subchondral cysts. Total hip replacement was discussed with the patient with risks and benefits including but not limited to blood loss, DVTs, PEs, neurovascular damage, dislocation, general risks of anesthesia including loss of life. Patient demonstrated an understanding medical clearance is obtained the patient was consented for surgery. Procedure: On the date of procedure the patient's L hip was marked in the preoperative area. Patient was then taken back to the operating room where anesthesia assumed control of the C-spine and airway and administered anesthetic. Patient was transferred to the operating table and placed in the supine position. The hips were placed at the break of the bed and a sacral bump was placed. The L lower extremity was then prepped out in a sterile fashion using chlorhexidine while the surgeon scrubbed. The PA was vital in the positioning of the patient. Upon reentering the room the L lower extremity was draped in the standard orthopedic fashion and the incision was marked. A timeout was called and everyone agreed upon the side, the site, the procedure be performed, antibody given, and patient's identity. At this time incision was made through skin, subcutaneous tissue, and fat down to fascia. The fascia was then incised and the TFL was retracted laterally. A retractor was placed on the lateral border of the femoral neck. Attention was directed to the inferior portion of the approach and all crossing vessels were identified and appropriately coagulated. A retractor was then placed on the medial portion of the femoral neck. The anterior capsule was then cleared of all soft tissue and then H shaped capsulotomy was made. The retractors were then placed inside the capsule. The femoral neck was identified and a cleanup cut was made. At this time a power corkscrew was used to remove the femoral head. Attention was then turned toward the acetabulum where the soft tissues were appropriately retracted and the acetabulum was sequentially reamed to 46 mm. A 46 mm cup was then selected and impacted into place. Acetabular liner was impacted into place and locking mechanism was verified. The position of the acetabular cup was then verified under live fluoroscopy. Attention was then turned to the femur. Soft tissue releases on the medial and lateral femoral neck were appropriately done, the leg was externally rotated and lateralized. A Castorena retractor was placed medially and proximally to the greater trochanter this allowed appropriate visualization and exposure of the femoral canal. Rongeour was then used to remove excess lateral bone. A canal finder and entry broach were used to open the proximal canal. Once we verified we were down the femoral canal we subsequently broached up to a size 5 femur. The appropriate neck was placed in the previously selected head was trialed with a 8 mm neck. Traction was pulled and the hip was reduced with internal rotation. Once it was appropriately reduced and stability was checked. There was minimal shuck, equal leg lengths and appropriate stability with hyperextension and external rotation as well as with 90? flexion and internal rotation. Fluoroscopy was then also used to verify the position of the components and leg lengths using the contralateral side for comparison. The trial components were then dislocated the proximal femur was again exposed and the components were removed from the wound. The final components were verified and opened. The wound was copiously irrigated out with normal saline. The acetabulum was checked for any residual debris. The final components were placed and impacted. Traction and internal rotation were again used to reduce the hip. After adequate reduction the hip remained stable with appropriate leg lengths. The final components were once again checked with live fluoroscopy and were found to be satisfactory. The wound was then copiously irrigated with normal saline once more, and hemostasis was obtained. Closure was then done using #1 Vicryl runner to close the fascia. A 2-0 vicryl interuppted sutures were used to close the subcutaneous skin. A 3-0 Monocryl and Steri-Strips were used for final skin closure. A Silverlon dressing was placed. Patient was awakened by anesthesia and transferred to the [facility]. Patient was then transferred to the PACU for recovery. Postoperative plan: Patient will get 24 hours postop antibiotics. Patient will get in-house physical therapy and will be weight-bear as tolerated. Patient will follow up in office in 2 weeks for a wound check and x-rays. 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
[2024-09-29] MEDS: Lactated Ringers 1,000 ML 75 ML IV ×2 (09:00→18:21)
--- NOTE | 2024-09-29 09:26 | PCM.POST.ANE ---
Anesthesia: Postop Eval I Current Vital Signs Temperature: 97.2 F Pulse Rate: 92 Blood Pressure: 119/75 Respiratory Rate: 16 Pulse Ox: 93 Oxygen Delivery Method: Nasal Cannula Oxygen Flow Rate (L/min): 2 Assessment Airway patent: Yes Spontaneous unlabored respirations: Yes Mental status: Awake and Calm nausea: No Vomiting: No Anesthesia Complication: No Fluid Hydration Crystalloid volume administer (ml): 1,000 Total IV fluid infused: 1,000 Progress Note Anesthesia document: Postop Eval 1 completed: Yes
--- NOTE | 2024-09-29 09:37 | PCM.OPRPT ---
Operative Report (Standard) Operative Information RN Documented Start/Stop Times: Operation Date: 09/29/24 07:30 Case Time Into Pre-Op 09/29/24 05:32 Out of Pre-Op 09/29/24 07:23 Anesthesia Start 09/29/24 07:26 Into Room 09/29/24 07:26 Procedure Start 09/29/24 07:47 Procedure End 09/29/24 09:16 Anesthesia End 09/29/24 09:21 Out of Room 09/29/24 09:21
--- NOTE | 2024-09-29 11:09 | POSTOPAN2_ITS ---
Anesthesia Postop Eval I Sum Postop Eval Completion status Anesthesia document: Postop Eval 1 completed: Yes Anesthesia Postop Eval I Summary Anesthesia Postop Eval I Summary: Anesthesia Postop Eval I: Assessment Summary Airway patent Yes 09/29/24 09:27 [place] [email or web address] Spontaneous unlabored Yes 09/29/24 09:27 [place] [email or web address] respirations Mental status Awake,Calm 09/29/24 09:27 [place] [email or web address] nausea No 09/29/24 09:27 [place] [email or web address] Vomiting No 09/29/24 09:27 [place] [email or web address] Anesthesia Postop Eval I: Fluid Summary Crystalloid volume administer 1,000 09/29/24 09:27 [place] [email or web address] (ml) Colloids volume administered ( ml) Blood Product volume administered (ml) Total IV fluid infused 1,000 09/29/24 09:27 [place] [email or web address] Anesthesia Postop Eval I: Summary Notes Anesthesia Complication No 09/29/24 09:27 [place] [email or web address] Anesthesia Complication Comment: Post-operative progress note Anesthesia: Postop Eval II Evaluation Mental status: Awake Pain Level: 0 nausea: No Vomiting: No
--- NOTE | 2024-09-29 11:09 | PCM.POSTANE2 ---
Anesthesia Postop Eval I Sum Postop Eval Completion status Anesthesia document: Postop Eval 1 completed: Yes Anesthesia Postop Eval I Summary Anesthesia Postop Eval I Summary: Anesthesia Postop Eval I: Assessment Summary Airway patent Yes 09/29/24 09:27 POLICY SERVICES [email or web address] Spontaneous unlabored Yes 09/29/24 09:27 POLICY SERVICES REPRESENTATIVE.[email or web address] respirations Mental status Awake,Calm 09/29/24 09:27 POLICY SERVICES REPRESENTATIVE.[email or web address] nausea No 09/29/24 09:27 POLICY SERVICES REPRESENTATIVE.[email or web address] Vomiting No 09/29/24 09:27 POLICY SERVICES REPRESENTATIVE.[email or web address] Anesthesia Postop Eval I: Fluid Summary Crystalloid volume administer 1,000 09/29/24 09:27 POLICY SERVICES REPRESENTATIVE.JRIV (ml) Colloids volume administered ( ml) Blood Product volume administered (ml) Total IV fluid infused 1,000 09/29/24 09:27 POLICY SERVICES REPRESENTATIVE.[email or web address] Anesthesia Postop Eval I: Summary Notes Anesthesia Complication No 09/29/24 09:27 POLICY SERVICES REPRESENTATIVE.[email or web address] Anesthesia Complication Comment: Post-operative progress note Anesthesia: Postop Eval II Evaluation Mental status: Awake Pain Level: 0 nausea: No Vomiting: No
--- NOTE | 2024-09-29 13:54 | PCM.PN.HOSP ---
Subjective Subjective 83-year-old female presented for an elective left hip replacement for arthritis. Doing well, still on a little bit of oxygen after anesthesia Objective Data Objective Data Vital Signs: Vital Signs Temp Pulse Resp BP Pulse Ox O2 Del Method O2 Flow Rate 97.5 F L 87 18 95/59 L 99 Nasal Cannula 3 09/29/24 12:38 09/29/24 12:38 09/29/24 12:38 09/29/24 12:38 09/29/24 13:42 09/29/24 13:42 09/29/24 13:42 Oxygen Flow Rate (L/min) 3 Oxygen Delivery Method Nasal Cannula Weight: 195 lb 12.8 oz Body Mass Index (BMI) 34.7 Intake & Output: Intake and Output for Last 24 Hours 09/28/24 09/29/24 09/30/24 03:59 03:59 03:59 Intake Total 1427 / 1427 Balance 1427 / 1427 Lab / Micro Data Labs: Laboratory Results - last 24 hr 09/29/24 06:01: POC Glucose 79 Radiography Diagnostic Testing: Radiology Impression Hip X-Ray 09/29/24 07:10 IMPRESSION: Status post total hip replacement in anatomic position. Reading Location: [facility] Physical Exam Narrative General: Alert, Oriented x3, Cooperative, No apparent distress HEENT: Atraumatic, PERRLA, EOMI, Normocephalic Oral: Moist Mucosa Neck: Supple, No JVD Lungs: Diminished, Normal air movement, No rhonchi, No wheeze, No rales Cardiovascular: Regular rate, Regular Rhythm, Normal S1, Normal S2, No murmurs Abdomen: Soft, Non Tender, Non-Distended, No Hepato-splenomegaly Extremities: No edema, Capillary Refill Less than 3 Seconds Skin: Dressing on the left hip intact Musculoskeletal: No Tenderness to Palpation of Joints or Extremities Neurological: No focal neurological deficits, Motor Exam 5/5 strength throughout, Sensory exam intact to light touch and pain Psych/Mental Status: Flat Assessment & Plan Assessment/Plan (1) Status post left hip replacement: PLAN: Plan 1. Left hip replacement on 09/29/2024 for OA ? Pain management per primary ? PT/OT ? DVT prophylaxis per primary 2. GERD, hypothyroidism, anxiety, depression are chronic medical conditions which complicate her care. We may continue all of her home medications Charges/Coding Visit Charges Office Visits / Consults: [id number] OV L3 New 30min
[2024-09-29] MEDS: Clindamycin 600 MG/50 ML BAG 100 MG IV ×2 (14:19→20:41)
[2024-09-29] MEDS: Citalopram 20 MG Tablet PO (14:20)
[2024-09-29] MEDS: Loratadine 10 MG Tablet PO (14:20)
[2024-09-29] MEDS: traMADol 50 MG Tablet PO ×2 (14:25→21:11)
[2024-09-29] MEDS: Ensure Surgery 237 ML LIQUID PO (18:22)
[2024-09-29] MEDS: Vancomycin IV 500 MG/100 ML BAG 100 MG IV (18:22)
[2024-09-29] MEDS: Budesonide Respules 0.5 MG/2 ML AMPUL.NEB. INHALATION (20:24)
[2024-09-29] MEDS: Ipratropium/Albuterol Sulfate 3 ML AMPUL.NEB INHALATION (20:24)
[2024-09-29] MEDS: Senna/Docusate Sodium 1 Tablet 2 TABLET PO (20:43)
[2024-09-29] MEDS: APIXABAN 2.5 MG TABLET (WCH) PO (20:43)
[2024-09-29] MEDS: Pantoprazole Sodium 40 MG Tablet PO (20:44)
[2024-09-29] MEDS: Metoprolol Tartrate 25 MG Tablet PO (20:53)
[2024-09-29] MEDS: Baclofen 10 MG Tablet PO (20:54)
[2024-09-29] MEDS: Morphine 2 MG/ML Syringe IV (23:18)
[2024-09-30] VITALS (12 sets, daily range): BP systolic 110–166; BP diastolic 41–70; PULSE 78–102; RESP 14–20; TEMP 36.6–37.1; O2SAT 91–99
[2024-09-30] MEDS: Clindamycin 600 MG/50 ML BAG 100 MG IV (02:19)
--- NOTE | 2024-09-30 04:32 | CPS ---
This MECHANICAL PRODUCT DESIGN ENGINEER set up patients home PAP therapy machine
[2024-09-30] MEDS: Acetaminophen 500 MG Tablet 1000 MG PO ×3 (06:04→21:03)
[2024-09-30] MEDS: Levothyroxine 75 MCG Tablet PO (06:04)
[2024-09-30] MEDS: traMADol 50 MG Tablet PO ×2 (06:09→11:32)
[2024-09-30 06:38] LABS: Hematocrit 33.3 % (37-47); Hemoglobin 10.3 g/dL (12.0-15.0); Mean Corp Hgb Conc 30.9 g/dL (32-36); Mean Corpuscular Hgb 29.9 pg (27.0-32.0); Mean Corpuscular Volume 96.5 fL (81-99); Platelet Count 252 K/mm3 (150-450); RBC Distribution Width CV 13.4 % (11.6-14.6); RBC Distribution Width SD 47.2 fl (35.1-43.9); Red Blood Count 3.45 M/mm3 (4.2-5.4); White Blood Count 12.7 K/mm3 (4.4-11.0)
[2024-09-30 07:05] LABS: Anion Gap 9 (5-15); BUN 23 mg/dL (7-18); BUN/Creat Ratio 21.5 RATIO (10-20); Calcium,Total 8.7 mg/dL (8.5-10.1); Chloride 103 mmol/L (98-107); Creatinine, Serum 1.07 mg/dL (0.55-1.02); EST Glomerular Filtration Rate 52 mL/min (>60); Est Glom Filt Rate - Afr Amer 63 mL/min (>60); Estimated Creatinine Clearance 43.59 ml/min; Glucose 136 mg/dL (74-106); Potassium 4.6 mmol/L (3.5-5.1); Sodium Level 138 mmol/L (136-145)
[2024-09-30] MEDS: Budesonide Respules 0.5 MG/2 ML AMPUL.NEB. INHALATION ×2 (07:45→19:36)
[2024-09-30] MEDS: Ipratropium/Albuterol Sulfate 3 ML AMPUL.NEB INHALATION ×3 (07:45→19:36)
--- NOTE | 2024-09-30 07:53 | PCM.PN.ORT ---
Subjective Subjective Patient appears to be comfortable in bed. Patient states that she worked with physical therapy yesterday. Patient states that her pain is controlled and on average is a 6 or 7 out of 10. Patient states that her plan is to go to the TCU. Patient denies having a bowel movement yet. Patient denies shortness of breath, chest pain, calf pain, fever, chills, dizziness, nausea, vomiting. Patient denies any adverse events overnight. Objective Data Objective Data Vital Signs: Vital Signs Temp Pulse Resp BP Pulse Ox O2 Del Method O2 Flow Rate 98.1 F 86 16 146/57 H 95 Room Air 2 09/30/24 07:41 09/30/24 07:47 09/30/24 07:47 09/30/24 07:41 09/30/24 07:47 09/30/24 07:47 09/30/24 03:00 FiO2 98 09/30/24 00:00 Oxygen Flow Rate (L/min) 2 Oxygen Delivery Method Room Air Weight: 88.813 kg Body Mass Index (BMI) 34.7 Intake & Output: Intake and Output for Last 24 Hours 09/28/24 09/29/24 09/30/24 23:59 23:59 23:59 Intake Total 2788.25 / 2788.25 250 / 250 Output Total 500 / 500 Balance 2788.25 / 2788.25 -250 / -250 Lab / Micro Data 09/30/24 05:47 09/30/24 05:47 Labs: Laboratory Results - last 24 hr 09/30/24 05:47: WBC 12.7 H, RBC 3.45 L, Hgb 10.3 L, Hct 33.3 L, MCV 96.5, MCH 29.9, MCHC 30.9 L, RDW Std Deviation 47.2 H, RDW Coeff of Stevie 13.4, Plt Count 252, MPV 10.0, Sodium 138, Potassium 4.6, Chloride 103, Carbon Dioxide 26.0, Anion Gap 9, BUN 23 H, Creatinine 1.07 H, Estim Creat Clear Calc 43.59, Est GFR (MDRD) Af Amer 63, Est GFR (MDRD) Non-Af 52 L, BUN/Creatinine Ratio 21.5 H, Glucose 136 H, Calcium 8.7 Radiography Diagnostic Testing: Radiology Impression Hip X-Ray 02/17/25 07:10 IMPRESSION: Status post total hip replacement in anatomic position. Reading Location: [facility] Physical Exam Narrative 1. TIFFANI hose in place bilaterally. 2. SCDs in place bilaterally. 3. Dressing is clean dry and intact. 4. Left hip is soft and supple. 5. Dorsiflexion and plantarflexion are performed actively without pain or restriction. 6. Sensation intact to light touch. 7. Neurovascularly intact overall. 8. Negative Homans bilaterally. Const alert, oriented x3 and no apparent distress Assessment & Plan Assessment/Plan (1) Status post left hip replacement: PLAN: 1. DVT prophylaxis: Due to past history of DVT patient will be on Eliquis postoperatively for 2 weeks. After 2 weeks she will then use aspirin 81 mg 2 times per day until 4 weeks postoperatively. Patient will also be wearing TIFFANI hose for 2 weeks postoperatively. 2. Pain medications: Patient was instructed that she can take Tylenol 1000 mg every 8 hours [id number] taking no more than 3000 mg in 24 hours. Patient was then instructed to take her tramadol as needed for breakthrough pain. OARRS report was reviewed today. The risk of abuse potential for narcotic pain medication was discussed and reviewed. Patient was advised not to drive a motor vehicle or operate heavy equipment while taking narcotic pain medication. Patient voiced understanding. 3. Constipation: Patient was instructed to take senna as instructed until her first bowel movement to decrease risk of impaction following surgery. Patient states that she has not currently had a bowel movement. Patient was instructed if they have not yet had bowel movement in 3 days to call our office for reevaluation. 4. Physical therapy: Patient states that she has worked with physical therapy yesterday and it has went well. Patient will work with physical therapy again today. 5. Labs: H&H: 10.3/33.3. Patient is currently not symptomatic. Patient has not dropped below 10 for hemoglobin cell anemia protocol does not have to be started at this time. 6. Reactive leukocytosis: 12.7. Patient is currently afebrile and not symptomatic. Patient did receive Decadron perioperatively. Likely a reaction to Decadron. 6. Incentive spirometer: Patient was encouraged to use incentive spirometer every hour that they are awake for the first week to exercise along decrease risk of postoperative infection. 7. Dressings: Patient was educated that the dressing will stay in place for 5 days postoperatively. Patient was educated that the dressing is waterproof and she may get the dressing wet. Patient was educated that on postop day 1 patient was able to take a shower over dressing. Patient was educated to take dressing off on postop day 5 and as long as incision looks clean dry and intact she was able to leave dressing off. 8. Postoperative instructions: Patient will follow postoperative instructions as well as [facility]. 9. Medicines involvement: Appreciate recommendations from medicine for safe and proper discharge. 10. Patient is not to be taking any nonsteroidal anti-inflammatory medications due to a GFR of 52. Appreciate recommendations from medicine. 11. I believe that patient would benefit from a another night stay in the hospital. Patient does have some concerns with safety while going home. We will monitor patient's hemoglobin to make sure that it does not drop below 10. Patient feels that she would benefit from a skilled rehab facility. Patient has spoke with her primary care provider about this and was told that she has a room at the [facility] TCU. Patient was educated that she will have to talk to case management about this.
[2024-09-30] MEDS: Ensure Surgery 237 ML LIQUID PO ×3 (08:28→18:05)
[2024-09-30] MEDS: Citalopram 20 MG Tablet PO (08:38)
[2024-09-30] MEDS: Metoprolol Tartrate 25 MG Tablet PO ×2 (08:39→21:54)
[2024-09-30] MEDS: Loratadine 10 MG Tablet PO (08:39)
[2024-09-30] MEDS: Senna/Docusate Sodium 1 Tablet 2 TABLET PO ×2 (08:40→21:55)
[2024-09-30] MEDS: APIXABAN 2.5 MG TABLET (WCH) PO ×2 (08:41→21:55)
--- NOTE | 2024-09-30 09:21 | PN.HOSP_ITS ---
Subjective Subjective Doing well, no issues overnight. Continue with incentive spirometry Objective Data Objective Data Vital Signs: Vital Signs Temp Pulse Resp BP Pulse Ox O2 Del Method O2 Flow Rate 98.1 F 86 16 146/57 H 95 Room Air 2 09/30/24 07:41 09/30/24 08:39 09/30/24 07:47 09/30/24 08:39 09/30/24 07:47 09/30/24 07:47 09/30/24 03:00 FiO2 98 09/30/24 00:00 Oxygen Flow Rate (L/min) 2 Oxygen Delivery Method Room Air Weight: 195 lb 12.8 oz Body Mass Index (BMI) 34.7 Intake & Output: Intake and Output for Last 24 Hours 09/29/24 09/30/24 10/01/24 03:59 03:59 03:59 Intake Total 2788.25 / 2788.25 250 / 250 Output Total 500 / 500 Balance 2788.25 / 2788.25 -250 / -250 Lab / Micro Data 09/30/24 05:47 09/30/24 05:47 Labs: Laboratory Results - last 24 hr 09/30/24 05:47: WBC 12.7 H, RBC 3.45 L, Hgb 10.3 L, Hct 33.3 L, MCV 96.5, MCH 29.9, MCHC 30.9 L, RDW Std Deviation 47.2 H, RDW Coeff of Stevie 13.4, Plt Count 252, MPV 10.0, Sodium 138, Potassium 4.6, Chloride 103, Carbon Dioxide 26.0, Anion Gap 9, BUN 23 H, Creatinine 1.07 H, Estim Creat Clear Calc 43.59, Est GFR (MDRD) Af Amer 63, Est GFR (MDRD) Non-Af 52 L, BUN/Creatinine Ratio 21.5 H, G lucose 136 H, Calcium 8.7 Radiography Diagnostic Testing: Radiology Impression Hip X-Ray 09/29/24 07:10 IMPRESSION: Status post total hip replacement in anatomic position. Reading Location: [facility] Physical Exam Narrative General: Alert, Oriented x3, Cooperative, No apparent distress HEENT: Atraumatic, PERRLA, EOMI, Normocephalic Oral: Moist Mucosa Neck: Supple, No JVD Lungs: Diminished, Normal air movement, No rhonchi, No wheeze, No rales Cardiovascular: Regular rate, Regular Rhythm, Normal S1, Normal S2, No murmurs Abdomen: Soft, Non Tender, Non-Distended, No Hepato-splenomegaly Extremities: No edema, Capillary Refill Less than 3 Seconds Skin: Dressing on the left hip intact Musculoskeletal: No Tenderness to Palpation of Joints or Extremities Neurological: No focal neurological deficits, Motor Exam 5/5 strength throughout, Sensory exam intact to light touch and pain Psych/Mental Status: Flat Assessment & Plan Assessment/Plan (1) Status post left hip replacement: PLAN: Plan 1. Left hip replacement on 09/29/2024 for OA ? Pain management per primary ? PT/OT ? DVT prophylaxis per primary ? Continue with incentive spirometry and wean oxygen currently on room air ? Reactive leukocytosis hemoglobin is stable ? Renal function is stable as well 2. GERD, hypothyroidism, anxiety, depression are chronic medical conditions which complicate her care. We may continue all of her home medications Will sign off Charges/Coding Visit Charges Office Visits / Consults: [id number] OV L3 Est 20min
--- NOTE | 2024-09-30 09:52 | CASEMGMT ---
Met with patient to complete DENG form. DENG form explained to patient who voiced understanding and signed form. Original form placed in pt?s chart and copy provided to patient. Kae Alcaraz, Discharge Planning Asst
--- NOTE | 2024-09-30 10:52 | CASEMGMT ---
Addendum entered by Kailey Castellanos 09/30/24 11:31: Pt updated on acceptance. Ortho feels pt needs one more night. Plans for precert to be started 10/01. GENO Nieves Original Note: Social Work- SW completed referral to TCU; pt accepted. Precrt to be started when medically ready. Plan: TCU; pend precert GENO Nieves
--- NOTE | 2024-09-30 10:55 | CASEMGMT ---
SHERITA LEMON Assessment: Face to Face with pt for initial transition planning/care coordination assessment. SHERITA LEMON introduced self and role at [facility], pt voices understanding and consents to assessment. Pt is A&O x4 and answers all questions appropriately at this time. Pt sitting up in chair in no distress. Care providers, pharmacy, and demographics verified/updated. Admitting Dx: Total Hip Strata Score: 1 PCP:Nikos Specialists: Basali, pain mgmt; Gorge, ortho; Sibilia, pulm; Ginette, cardio; Tiago, pod Preferred Pharmacy: [facility] Retail Insurance: Entrec Prescription Benefit: yes LNOK: Wilfrid Alarcon, ; Madeleine Coffman, granddtr Living Arrangements: Pt lives with and dtr in a mobile home with 5 steps to enter with bilat rails. Pt reports her dtr helps with all ADL/IADLs. Transportation: Pt has not driven recently. Pt family transports her. DME:CPAP, raised toilet seat, rollator, ww, w/c, ext tub bench HHC/SNF: Pt has had [facility]HC in the past and [facility] Pt states she plans to go to [facility] TCU after this hospitalization. She states she has been accepted. SW aware. Pt states no further concerns/needs. CM to follow. Advised pt to ask CM if any further questions/concerns/needs arise, voices understanding. Pt Goal: [facility] TCU Plan: [facility] TCU Salena MAGALLON CM
[2024-09-30] MEDS: 0.9% Saline Lock 10 ML Syringe IV ×2 (11:33→21:55)
[2024-09-30] MEDS: oxyCODONE 5 MG Tablet PO ×2 (14:56→21:04)
[2024-09-30] MEDS: Baclofen 10 MG Tablet PO (21:04)
[2024-09-30] MEDS: Pantoprazole Sodium 40 MG Tablet PO (21:05)
[2024-10-01] VITALS (14 sets, daily range): BP systolic 117–157; BP diastolic 55–78; PULSE 85–125; RESP 16–20; TEMP 36.6–37.9; O2SAT 85–100
[2024-10-01] MEDS: 0.9% Saline Lock 10 ML Syringe IV ×3 (02:31→18:14)
[2024-10-01] MEDS: oxyCODONE 5 MG Tablet PO ×5 (02:34→22:27)
[2024-10-01 05:27] LABS: Hemoglobin 10.2 g/dL (12.0-15.0); Mean Corp Hgb Conc 31.9 g/dL (32-36); Mean Corpuscular Hgb 30.4 pg (27.0-32.0); Mean Corpuscular Volume 95.2 fL (81-99); Mean Platelet Vol. 10.3 fl (6.2-12.0); Platelet Count 216 K/mm3 (150-450); RBC Distribution Width CV 13.7 % (11.6-14.6); RBC Distribution Width SD 47.8 fl (35.1-43.9); Red Blood Count 3.36 M/mm3 (4.2-5.4); White Blood Count 9.8 K/mm3 (4.4-11.0)
[2024-10-01] MEDS: Levothyroxine 75 MCG Tablet PO (05:42)
[2024-10-01] MEDS: Acetaminophen 500 MG Tablet 1000 MG PO ×3 (05:42→22:13)
[2024-10-01] MEDS: Ipratropium/Albuterol Sulfate 3 ML AMPUL.NEB INHALATION ×3 (06:49→19:56)
[2024-10-01] MEDS: Budesonide Respules 0.5 MG/2 ML AMPUL.NEB. INHALATION ×2 (06:49→19:56)
[2024-10-01] MEDS: Ondansetron 4 MG/2 ML Vial IV (08:40)
[2024-10-01] MEDS: Citalopram 20 MG Tablet PO (08:54)
[2024-10-01] MEDS: Loratadine 10 MG Tablet PO (08:55)
[2024-10-01] MEDS: Senna/Docusate Sodium 1 Tablet 2 TABLET PO ×2 (08:55→22:12)
[2024-10-01] MEDS: APIXABAN 2.5 MG TABLET (WCH) PO ×2 (08:55→22:13)
[2024-10-01] MEDS: Metoprolol Tartrate 25 MG Tablet PO ×2 (08:55→22:12)
[2024-10-01] MEDS: Ensure Surgery 237 ML LIQUID PO ×3 (09:01→17:13)
--- NOTE | 2024-10-01 11:12 | PN.ORTHO_ITS ---
Subjective Subjective Patient appears to be comfortable in bedside chair. Patient did try to get up and had an episode of nausea, dizziness, lightheadedness. Patient states that she has been taking Ensure but has not been able to eat a meal. Patient denies any shortness of breath, chest pain, calf pain, fever, chills. Objective Data Objective Data Vital Signs: Vital Signs Temp Pulse Resp BP Pulse Ox O2 Del Method O2 Flow Rate 98.3 F 101 H 18 117/65 97 Nasal Cannula 2 10/01/24 08:52 10/01/24 08:55 10/01/24 08:52 10/01/24 08:52 10/01/24 09:48 10/01/24 08:52 10/01/24 09:48 FiO2 98 09/30/24 00:00 Oxygen Flow Rate (L/min) 2 Oxygen Delivery Method Nasal Cannula Weight: 88.813 kg Body Mass Index (BMI) 34.7 Intake & Output: Intake and Output for Last 24 Hours 09/29/24 09/30/24 10/01/24 23:59 23:59 23:59 Intake Total 2888.25 / 2888.25 2100 / 2100 Output Total 500 / 500 1050 / 1050 Balance 2888.25 / 2888.25 1600 / 1600 -1050 / -1050 Lab / Micro Data 10/01/24 04:44 09/30/24 05:47 Labs: Laboratory Results - last 24 hr 10/01/24 04:44: WBC 9.8, RBC 3.36 L, Hgb 10.2 L, Hct 32.0 L, MCV 95.2, MCH 30.4, MCHC 31.9 L, RDW Std Deviation 47.8 H, RDW Coeff of Stevie 13.7, Plt Count 216, MPV 10.3 Physical Exam Narrative 1. TIFFANI hose in place bilaterally. 2. SCDs in place bilaterally. 3. Dressing is clean dry and intact. 4. Left hip is soft and supple. 5. Dorsiflexion plantarflexion are performed actively without pain or restriction. 6. Sensation intact to light touch. 7. Neurovascularly intact overall. 8. Negative Homans bilaterally. Const alert, oriented x3 and no apparent distress Assessment & Plan Assessment/Plan (1) Status post left hip replacement: PLAN: 1. DVT prophylaxis: Due to past history of DVT patient will be on Eliquis postoperatively for 2 weeks. After 2 weeks she will then use aspirin 81 mg 2 times per day until 4 weeks postoperatively. Patient will also be wearing TIFFANI hose for 2 weeks postoperatively. 2. Pain medications: Patient was instructed that she can take Tylenol 1000 mg every 8 hours [id number] taking no more than 3000 mg in 24 hours. Patient was then instructed to take oxycodone as needed for breakthrough pain. Patient was stating that tramadol was not covering her pain so medication was switched to oxycodone. Patient's primary care provider was giving patient narcotics. Patient's primary care provider was spoke to and they would like orthopedics to manage narcotics postoperatively. OARRS report was reviewed today. The risk of abuse potential for narcotic pain medication was discussed and reviewed. Patient was advised not to drive a motor vehicle or operate heavy equipment while taking narcotic pain medication. Patient voiced understanding. 3. Constipation: Patient was instructed to take senna as instructed until her first bowel movement to decrease risk of impaction following surgery. Patient states that she has not currently had a bowel movement. Patient was instructed if they have not yet had bowel movement in 3 days to call our office for reevaluation. 4. Physical therapy: Patient states that she has worked with physical therapy yesterday and it has went well. Patient will work with physical therapy again today. 5. Labs: H&H: 10.2/32.0. Patient is currently experiencing symptoms of nausea, dizziness, lightheadedness, sweating. Appreciate recommendations from medicine for safe discharge planning to TCU. Patient has not dropped below 10 for hemoglobin cell anemia protocol does not have to be started at this time. 6. Incentive spirometer: Patient was encouraged to use incentive spirometer every hour that they are awake for the first week to exercise along decrease risk of postoperative infection. 7. Dressings: Patient was educated that the dressing will stay in place for 5 days postoperatively. Patient was educated that the dressing is waterproof and she may get the dressing wet. Patient was educated that on postop day 1 patient was able to take a shower over dressing. Patient was educated to take dressing off on postop day 5 and as long as incision looks clean dry and intact she was able to leave dressing off. 8. Postoperative instructions: Patient will follow postoperative instructions as well as follow-up per [facility] postoperative instructions. 9. Medicines involvement: Appreciate recommendations from medicine for safe and proper discharge. 10. Patient is not to be taking any nonsteroidal anti-inflammatory medications due to a GFR of 52. Appreciate recommendations from medicine. 11. I believe that patient would benefit from a another night stay in the hospital. Patient is now experiencing symptoms of nausea, dizziness, lightheadedness, and sweating. P plan is for patient to be discharged to [facility] TCU. Patient does have some concerns with safety while going home. We will monitor patient's hemoglobin to make sure that it does not drop below 10. Patient feels that she would benefit from a skilled rehab facility. Patient has spoke with her primary care provider about this and was told that she has a room at the [facility] TCU. Patient was educated that she will have to talk to case management about this.
--- NOTE | 2024-10-01 11:51 | CASEMGMT ---
Social Work- SW notified by TCU admissions that precert started for TCU admission. SW remains available to follow. GENO Nieves
--- NOTE | 2024-10-01 13:48 | PCM.PROGNOTE ---
Subjective Subjective Patient is an 83-year-old female with a past medical history as outlined was admitted for left hip replacement on account of osteoarthritis. She was admitted to the service of orthopedics and she had a left hip replacement on 09/29/2024. Hospitalist service was initially consulted but signed off on 09/30/2024. Hospitalist service was reconsulted on 10/01/2024 to evaluate patient on account of dizziness and lightheadedness. Patient was seen. She was resting calmly. She said in the morning she had felt dizzy and also felt nauseous though she did not throw up. She denied any palpitations, chest pain or shortness of breath. Review of systems otherwise negative. She has remained hemodynamically stable. Objective Data Objective Data Vital Signs: Vital Signs Temp Pulse Resp BP Pulse Ox O2 Del Method O2 Flow Rate 98.3 F 101 H 18 117/65 97 Nasal Cannula 2 10/01/24 08:52 10/01/24 08:55 10/01/24 08:52 10/01/24 08:52 10/01/24 09:48 10/01/24 08:52 10/01/24 09:48 FiO2 98 09/30/24 00:00 Oxygen Flow Rate (L/min) 2 Oxygen Delivery Method Nasal Cannula Weight: 195 lb 12.8 oz Body Mass Index (BMI) 34.7 Intake & Output: Intake and Output for Last 24 Hours 09/29/24 09/30/24 10/01/24 23:59 23:59 23:59 Intake Total 2888.25 / 2888.25 2100 / 2100 Output Total 500 / 500 1050 / 1050 Balance 2888.25 / 2888.25 1600 / 1600 -1050 / -1050 Lab / Micro Data 10/01/24 04:44 09/30/24 05:47 Labs: Laboratory Results - last 24 hr 10/01/24 04:44: WBC 9.8, RBC 3.36 L, Hgb 10.2 L, Hct 32.0 L, MCV 95.2, MCH 30.4, MCHC 31.9 L, RDW Std Deviation 47.8 H, RDW Coeff of Stevie 13.7, Plt Count 216, MPV 10.3 Physical Exam Const alert, oriented x3 and no apparent distress General Appearance: cooperative and well developed HEENT normocephalic, head/scalp atraumatic, moist oral mucous membranes and oropharynx normal Eyes PERRL and EOMs intact bilaterally Neck no lymphadenopathy and supple Lymph Lymphatic: no lymphadenopathy noted and no lymphedema noted Resp normal respiratory effort, normal air movement and clear to auscultation bilaterally Cardio regular rate, regular rhythm, S1 normal heart sound, S2 normal heart sound and no murmurs Extremity normal capillary refill, no clubbing, cyanosis or edema and no calf tenderness General Extremity: no tenderness to palpation of joints or extremities Skin Skin Narrative: intact dressing over left hip at surgical site General Skin Exam: no breakdown Neuro CN's II-XII intact bilaterally, no focal motor deficits and no sensory deficits noted Motor Exam: strength 5/5 throughout and general weakness Psych thought process normal and cooperative Appearance: appropriate Assessment & Plan Assessment/Plan (1) Status post left hip replacement: (2) Dizziness: PLAN: Plan #Dizziness Had had resolved at time I reviewed her. She says she felt dizzy and nauseous this morning. She did not think she had been eating or drinking well. She had not been hypotensive. She was however mildly tachycardic. Hydrate with IV fluid normal saline at 75 cc/h x 1 bag. IV Zofran as needed. PT OT on board. Fall precautions. Check orthostatic vitals. #Hypothyroidism: On Synthroid #Hypertension: On metoprolol #Depression: On citalopram #History of asthma: Not in exacerbation. On Trelegy DVT prophylaxis; on eliquis 2.5mg bid as per primary service Thanks for the courtesy of the consult. Hospitalist service will continue to follow with you. Charges/Coding Visit Charges Inpatient E&M: 19793 Subs Hosp L2
[2024-10-01] MEDS: 0.9% Normal Saline (1000mL) 1,000 ML 75 ML IV (18:14)
[2024-10-01] MEDS: Baclofen 10 MG Tablet PO (22:12)
[2024-10-01] MEDS: Pantoprazole Sodium 40 MG Tablet PO (22:12)
[2024-10-02] VITALS (14 sets, daily range): BP systolic 92–148; BP diastolic 47–70; PULSE 83–114; RESP 18–24; TEMP 36.5–36.8; O2SAT 89–99
[2024-10-02 06:31] LABS: Hematocrit 30.2 % (37-47); Hemoglobin 9.3 g/dL (12.0-15.0); Mean Corp Hgb Conc 30.8 g/dL (32-36); Mean Corpuscular Hgb 30.2 pg (27.0-32.0); Mean Corpuscular Volume 98.1 fL (81-99); Platelet Count 217 K/mm3 (150-450); RBC Distribution Width CV 13.9 % (11.6-14.6); RBC Distribution Width SD 50.3 fl (35.1-43.9); Red Blood Count 3.08 M/mm3 (4.2-5.4); White Blood Count 9.7 K/mm3 (4.4-11.0)
[2024-10-02] MEDS: Nystatin Powder 15gm Bottle 1 APPLIC TOPICAL ×3 (06:39→22:53)
[2024-10-02] MEDS: Acetaminophen 500 MG Tablet 1000 MG PO ×3 (06:39→22:53)
[2024-10-02] MEDS: Levothyroxine 75 MCG Tablet PO (06:40)
[2024-10-02] MEDS: oxyCODONE 5 MG Tablet PO ×3 (06:45→23:51)
[2024-10-02 07:04] LABS: Color, Urine Yellow (Yellow); Glucose, Dipstick Normal (Normal); Ketone-Dipstick Negative (Negative); Leukocyte Esterase-Dipstick Negative /ul (Negative); Mucous, Urine 0 SEEN /hpf (<or=2+); Nitrite-Dipstick Negative (Negative); Occult Blood-Urine 10 /ul (Negative); Protein-Dipstick 30 mg/dl (Negative); Urine Bilirubin Dipstick Negative (Negative); Urine Clarity Clear (Clear); Urine Urobilinogen Normal (Normal)
[2024-10-02] MEDS: Budesonide Respules 0.5 MG/2 ML AMPUL.NEB. INHALATION ×2 (07:04→20:00)
[2024-10-02] MEDS: Ipratropium/Albuterol Sulfate 3 ML AMPUL.NEB INHALATION ×3 (07:04→20:00)
[2024-10-02 07:29] LABS: Bacteria 1+ /hpf (None Seen); Squamous Epithelial Cells - UA 0-5 SEEN /hpf (5-10); White Blood Cells 0-5 SEEN /hpf (0-5)
[2024-10-02 07:30] LABS: Red Blood Cells-Urine 0-5 SEEN /hpf (0-5)
--- NOTE | 2024-10-02 07:49 | PN.ORTHO_ITS ---
Subjective Subjective Patient appears comfortable in bed. Patient states that she is feeling much better than yesterday. Patient states that she has not had any nausea, vomiting, dizziness or lightheadedness since yesterday. Patient states that she has not had a bowel movement. Patient did have a temperature of 100.2 overnight but patient states that she did not have any chills or signs of infection. Patient states that her pain is adequately controlled. Patient states that physical therapy is going okay. Patient denies any shortness of breath, chest pain, calf pain, vomiting. Patient denies any adverse events overnight. Patient states that today she feels strong enough to head to TCU. Objective Data Objective Data Vital Signs: Vital Signs Temp Pulse Resp BP Pulse Ox O2 Del Method O2 Flow Rate 97.7 F L 87 18 144/70 H 93 Nasal Cannula 2 10/02/24 06:47 10/02/24 06:47 10/02/24 06:47 10/02/24 06:47 10/02/24 06:47 10/02/24 06:47 10/02/24 06:47 FiO2 98 09/30/24 00:00 Oxygen Flow Rate (L/min) 2 Oxygen Delivery Method Nasal Cannula Weight: 88.813 kg Body Mass Index (BMI) 34.7 Intake & Output: Intake and Output for Last 24 Hours 09/30/24 10/01/24 10/02/24 23:59 23:59 23:59 Intake Total 2100 / 2100 Output Total 500 / 500 1050 / 1350 550 / 550 Balance 1600 / 1600 -1050 / -1350 -550 / -550 Lab / Micro Data 10/02/24 06:07 09/30/24 05:47 Labs: Laboratory Results - last 24 hr 10/01/24 22:20: Urine Color Yellow, Urine Clarity Clear, Urine pH 6.0, Ur Specific [place] 1.010, Urine Protein 30 H, Urine Glucose (UA) Normal, Urine Ketones Negative, Urine Occult Blood 10 H, Urine Nitrite Negative, Urine Bilirubin Negative, Urine Urobilinogen Normal, Ur Leukocyte Esterase Negative, Urine RBC 0-5 SEEN, Urine WBC 0-5 SEEN, Ur Squamous Epith Cells 0-5 SEEN, Urine Bacteria 1+, Urine Mucus 0 SEEN 10/02/24 06:07: WBC 9.7, RBC 3.08 L, Hgb 9.3 L, Hct 30.2 L, MCV 98.1, MCH 30.2, MCHC 30.8 L, RDW Std Deviation 50.3 H, RDW Coeff of Stevie 13.9, Plt Count 217, MPV 10.0 Physical Exam Narrative 1. TIFFANI hose in place bilaterally. 2. SCDs in place bilaterally. 3. Dressing is clean dry and intact. 4. Left hip is soft and supple. 5. Dorsiflexion plantarflexion are performed actively without pain or restriction. 6. Sensation intact to light touch. 7. Neurovascularly intact overall. 8. Negative Homans bilaterally. Const alert, oriented x3 and no apparent distress Assessment & Plan Assessment/Plan (1) Status post left hip replacement: PLAN: 1. DVT prophylaxis: Due to past history of DVT patient will be on Eliquis postoperatively for 2 weeks. After 2 weeks she will then use aspirin 81 mg 2 times per day until 4 weeks postoperatively. Patient will also be wearing TIFFANI hose for 2 weeks postoperatively. 2. Pain medications: Patient was instructed that she can take Tylenol 1000 mg every 8 hours [id number] taking no more than 3000 mg in 24 hours. Patient was then instructed to take oxycodone as needed for breakthrough pain. Patient was stating that tramadol was not covering her pain so medication was switched to oxycodone. Patient's primary care provider was giving patient narcotics. Patient's primary care provider was spoke to and they would like orthopedics to manage narcotics postoperatively. OARRS report was reviewed today. The risk of abuse potential for narcotic pain medication was discussed and reviewed. Patient was advised not to drive a motor vehicle or operate heavy equipment while taking narcotic pain medication. Patient voiced understanding. 3. Constipation: Patient was instructed to take senna as instructed until her first bowel movement to decrease risk of impaction following surgery. Patient states that she has not currently had a bowel movement. I will add MiraLAX to patient's regimen.. 4. Physical therapy: Patient states that she has worked with physical therapy yesterday and it has went well. Patient will work with physical therapy again today. 5. Labs: H&H: 9.330.2. Patient's symptoms of nausea, dizziness, and lightheadedness are much better from yesterday. We will start anemia protocol and begin ferrous sulfate and folic acid. 6. Incentive spirometer: Patient was encouraged to use incentive spirometer every hour that they are awake for the first week to exercise along decrease risk of postoperative infection. 7. Dressings: Patient was educated that the dressing will stay in place for 5 days postoperatively. Patient was educated that the dressing is waterproof and she may get the dressing wet. Patient was educated that on postop day 1 patient was able to take a shower over dressing. Patient was educated to take dressing off on postop day 5 and as long as incision looks clean dry and intact she was able to leave dressing off. 8. Postoperative instructions: Patient will follow postoperative instructions as well as follow-up per [facility] postoperative instructions. 9. Medicines involvement: Appreciate recommendations from medicine for safe and proper discharge. 10. Patient is not to be taking any nonsteroidal anti-inflammatory medications due to a GFR of 52. Appreciate recommendations from medicine. 11. As long as patient's pain remains adequately controlled, okay from medicine standpoint, and continues to do well with physical therapy patient will be discharged today. Plan is for patient to be discharged to [facility] TCU. Patient does have some concerns with safety while going home. Patient feels that she would benefit from a skilled rehab facility. Patient has spoke with her primary care provider about this and was told that she has a room at the [facility] TCU. Patient was educated that she will have to talk to case management about this.
--- NOTE | 2024-10-02 07:56 | TREXTCAR_ITS ---
Diet Diet Order/Speech Therapy: 09/29/24 17:44 Diet: Regular - General DC O2, CPAP, BIPAP needs Home O2 Discharge instructions: No Wound(s) left hip: Wound Type: Surgical Incision Therapies Weight Bearing: Weight bearing as tolerated Extremity Affected:: Left Upper Physical Therapy: Eval and Treat Occupational Therapy: Eval and Treat Speech Therapy: Eval and Treat Problem/Diagnosis (1) Status post left hip replacement: Status: Acute Code(s): Z96.642 - Presence of left artificial hip joint Plan: 1. DVT prophylaxis: Due to past history of DVT patient will be on Eliquis postoperatively for 2 weeks. After 2 weeks she will then use aspirin 81 mg 2 times per day until 4 weeks postoperatively. Patient will also be wearing TIFFANI hose for 2 weeks postoperatively. 2. Pain medications: Patient was instructed that she can take Tylenol 1000 mg every 8 hours [id number] taking no more than 3000 mg in 24 hours. Patient was then instructed to take oxycodone as needed for breakthrough pain. Patient was stating that tramadol was not covering her pain so medication was switched to oxycodone. Patient's primary care provider was giving patient narcotics. Patient's primary care provider was spoke to and they would like orthopedics to manage narcotics postoperatively. OARRS report was reviewed today. The risk of abuse potential for narcotic pain medication was discussed and reviewed. Patient was advised not to drive a motor vehicle or operate heavy equipment wh ile taking narcotic pain medication. Patient voiced understanding. 3. Constipation: Patient was instructed to take senna as instructed until her first bowel movement to decrease risk of impaction following surgery. Patient states that she has not currently had a bowel movement. I will add MiraLAX to patient's regimen.. 4. Physical therapy: Patient states that she has worked with physical therapy yesterday and it has went well. Patient will work with physical therapy again today. 5. Labs: H&H: 9.3/30.2. Patient's symptoms of nausea, dizziness, and lightheadedness are much better from yesterday. We will start anemia protocol and begin ferrous sulfate and folic acid. 6. Incentive spirometer: Patient was encouraged to use incentive spirometer every hour that they are awake for the first week to exercise along decrease risk of postoperative infection. 7. Dressings: Patient was educated that the dressing will stay in place for 5 days postoperatively. Patient was educated that the dressing is waterproof and she may get the dressing wet. Patient was educated that on postop day 1 patient was able to take a shower over dressing. Patient was educated to take dressing off on postop day 5 and as long as incision looks clean dry and intact she was able to leave dressing off. 8. Postoperative instructions: Patient will follow postoperative instructions as well as follow-up per [facility] postoperative instructions. 9. Medicines involvement: Appreciate recommendations from medicine for safe and proper discharge. 10. Patient is not to be taking any nonsteroidal anti-inflammatory medications due to a GFR of 52. Appreciate recommendations from medicine. 11. As long as patient's pain remains adequately controlled, okay from medicine standpoint, and continues to do well with physical therapy patient will be discharged today. Plan is for patient to be discharged to [facility] TCU. Patient does have some concerns with safety while going home. Patient feels that she would benefit from a skilled rehab facility. Patient has spoke with her primary care provider about this and was told that she has a room at the [facility] TCU. Patient was educated that she will have to talk to case management about this. Allergies/Procedures Done in Hospital Allergies Penicillins Allergy (Severe, Verified 09/29/24 05:54) facial swelling latex Allergy (Intermediate, Verified 09/29/24 05:54) itch and burn Discharge Plan Admission Admit Date/Time: 10/02/24 15:35 Attending Provider: Rene Pennington Primary Care Provider: Ranch[facility] Knott [facility] [employer] Providers: Pk Erickson Discharge Orders/Prescriptions Prescriptions: No Action levocetirizine 5 mg tablet 5 mg PO DAILY Trelegy Ellipta 100-62.5-25 mcg blister with device 1 inh inhalation DAILY levothyroxine 50 mcg tablet 75 mcg PO DAILY acetaminophen 500 mg Tablet 1,000 mg PO Q8 Qty: 0 0RF aspirin 81 mg Tablet,Delayed Release (Dr/Ec) 81 mg PO DAILYCM Qty: 0 0RF tramadol 50 mg Tablet 50 mg PO Q6H PRN PRN (Reason: Pain Score 1-5 Or Pre Pt/Ot) 7 Days Qty: 28 0RF baclofen 10 mg tablet 10 mg PO QHS omeprazole 40 mg capsule,delayed release(DR/EC) 40 mg PO QHS citalopram 20 mg tablet 20 mg PO DAILY sennosides-docusate sodium [Stimulant Laxative Plus] 8.6-50 mg Tablet 2 tab PO BID PRN (Reason: constipation) metoprolol tartrate 25 mg tablet 25 mg PO BID Qty: 180 3RF Referrals / Follow Up: Rancho Knott Chi, MD [Primary Care Provider] -
[2024-10-02] MEDS: Folic Acid 1 MG Tablet PO (09:53)
[2024-10-02] MEDS: Loratadine 10 MG Tablet PO (09:54)
[2024-10-02] MEDS: Citalopram 20 MG Tablet PO (09:54)
[2024-10-02] MEDS: Menthol/Lanolin/Calamine/Znox 113 GM Tube 1 APPLIC TOPICAL ×2 (09:54→22:52)
[2024-10-02] MEDS: APIXABAN 2.5 MG TABLET (WCH) PO ×2 (09:54→22:54)
[2024-10-02] MEDS: Polyethylene Glycol 3350 17 GM PACKET PO (09:55)
[2024-10-02] MEDS: Senna/Docusate Sodium 1 Tablet 2 TABLET PO ×2 (09:55→22:53)
[2024-10-02] MEDS: Ensure Surgery 237 ML LIQUID PO ×2 (09:56→17:44)
--- NOTE | 2024-10-02 11:24 | DS.PCM_ITS ---
Providers Date of Admission: 10/02/24 Primary Care Physician: Dr. Rancho Knott MD Consultations 09/29/24 07:09 Consult: Hospitalist Routine Consulting Provider: Pk Erickson Reason for Consult: post op med management EMERGENT Consult: No MD Notified: Yes Date Notified: 09/29/24 Time Notified: 12:22 Method of Notification: Text Reason For Visit: Total Hip Anterior Approach Diagnosis Discharge Diagnosis (1) Status post left hip replacement: Status: Acute Code(s): Z96.642 - Presence of left artificial hip joint Plan: 1. DVT prophylaxis: Due to past history of DVT patient will be on Eliquis postoperatively for 2 weeks. After 2 weeks she will then use aspirin 81 mg 2 times per day until 4 weeks postoperatively. Patient will also be wearing TIFFANI hose for 2 weeks postoperatively. 2. Pain medications: Patient was instructed that she can take Tylenol 1000 mg every 8 hours [id number] taking no more than 3000 mg in 24 hours. Patient was then instructed to take oxycodone as needed for breakthrough pain. Patient was stating that tramadol was not covering her pain so medication was switched to oxycodone. Patient's primary care provider was giving patient narcotics. Patient's primary care provider was spoke to and they would like orthopedics to manage narcotics postoperatively. OARRS report was reviewed today. The risk of abuse potential for narcotic pain medication was discussed and reviewed. Patient was advised not to drive a motor vehicle or operate heavy equipment while taking narcotic pain medication. Patient voiced understanding. 3. Constipation: Patient was instructed to take senna as instructed until her first bowel movement to decrease risk of impaction following surgery. Patient states that she has not currently had a bowel movement. I will add MiraLAX to patient's regimen.. 4. Physical therapy: Patient states that she has worked with physical therapy yesterday and it has went well. Patient will work with physical therapy again today. 5. Labs: H&H: 9.3.2. Patient's symptoms of nausea, dizziness, and lightheadedness are much better from yesterday. We will start anemia protocol and begin ferrous sulfate and folic acid. 6. Incentive spirometer: Patient was encouraged to use incentive spirometer every hour that they are awake for the first week to exercise along decrease risk of postoperative infection. 7. Dressings: Patient was educated that the dressing will stay in place for 5 days postoperatively. Patient was educated that the dressing is waterproof and she may get the dressing wet. Patient was educated that on postop day 1 patient was able to take a shower over dressing. Patient was educated to take dressing off on postop day 5 and as long as incision looks clean dry and intact she was able to leave dressing off. 8. Postoperative instructions: Patient will follow postoperative instructions as well as follow-up per [facility] postoperative instructions. 9. Medicines involvement: Appreciate recommendations from medicine for safe and proper discharge. 10. Patient is not to be taking any nonsteroidal anti-inflammatory medications due to a GFR of 52. Appreciate recommendations from medicine. 11. As long as patient's pain remains adequately controlled, okay from medicine standpoint, and continues to do well with physical therapy patient will be discharged today. Plan is for patient to be discharged to [facility]. Patient does have some concerns with safety while going home. Patient feels that she would benefit from a skilled rehab facility. Patient has spoke with her primary care provider about this and was told that she has a room at the [facility]. Patient was educated that she will have to talk to case management about this. Medications at Discharge Home Medications levocetirizine 5 mg tablet 5 mg PO DAILY ALLERGIES 04/06/20 levothyroxine 50 mcg tablet 75 mcg PO DAILY THYROID 06/21/22 fluticasone fur. 100 mcg-umeclid 62.5 mcg-vilant 25 mcg inhalat.powder (Trelegy Ellipta) 1 inh inhalation DAILY asthma 12/27/22 baclofen 10 mg tablet 10 mg PO QHS muscle relaxer 03/09/24 citalopram 20 mg tablet 20 mg PO DAILY antidepressant 03/09/24 omeprazole 40 mg capsule,delayed release 40 mg PO QHS acid reflux 03/09/24 acetaminophen 500 mg tablet 1,000 mg (2 x 500 mg) PO Q8 #0 tabs 03/25/24 aspirin 81 mg tablet,delayed release 81 mg PO DAILYCM #0 tabs 03/25/24 tramadol 50 mg tablet 50 mg PO Q6H PRN PRN Pain Score 1-5 Or Pre Pt/Ot 7 days #28 tabs 03/25/24 metoprolol tartrate 25 mg tablet 25 mg PO BID #180 TABLETS 06/04/24 sennosides 8.6 mg-docusate sodium 50 mg tablet (Stimulant Laxative Plus) 2 tab PO BID PRN constipation 09/01/24 Hospital Course Operations total hip replacement Summary of Care Provided Hospital Course: Patient is an 83-year-old female who presented for left total hip arthroplasty using the anterior approach on 09/29/[address] Rene Pennington. Patient was told prior to surgery that her primary care provider was able to get her a bed at [facility]. Patient then had another stay in the hospital due to to having symptoms of nausea, dizziness, and lightheadedness yesterday while working with physical therapy. We were also monitoring patient's hemoglobin which has now dropped to 9.3 and patient has been placed on ferrous sulfate and folic acid. Patient has worked with physical therapy at this point. Patient states that today she feels much better and feels that her symptoms from yesterday have resolved. Patient will be on Tylenol 1000 mg every 8 hours taking no more than 3000 mg in a day for postoperative pain, senna and MiraLAX for postop constipation, MiraLAX was added to regimen 10/02/2024 as patient has not had a bowel movement. Patient will be on Eliquis for 2 weeks following surgery and then aspirin 81 mg 2 times per day for another 2 weeks. Patient will be on Zofran as needed for nausea and vomiting. Patient will be on oxycodone as needed for pain control following use of Tylenol. Patient did have temperature of 100.2 overnight on 10/01/2024. Dr. Pennington was updated by myself did not want to add any medications to current regimen. Patient denied any chills or signs of infection. Dressing was looked at with postoperative edema of the hip. Weight / BMI Weight Weight: 88.813 kg Body Mass Index (BMI) 34.7 ABG / Lab / Microbiology Data 10/02/24 06:07 09/30/24 05:47 Laboratory: Laboratory Results - last 24 hr 10/01/24 22:20: Urine RBC 0-5 SEEN, Urine WBC 0-5 SEEN, Ur Squamous Epith Cells 0-5 SEEN, Urine Bacteria 1+, Urine Mucus 0 SEEN D/C Instructions Discharge Diet: No restrictions Discharge Activity: Use Walker (Weightbearing as tolerated with walker. ) Weight Bearing Status: Weight bearing as tolerated Keep extremity elevated above heart level: Left Leg Call your doctor if your incision/area has: Continuous Slow Oozing, Sudden Increased Bleeding, Increased Pain/ Swelling, Increased Redness and Foul Smelling Discharge Call your doctor if you observe: Fever of 101 or Higher, Inability to urinate, Inability to have a bowel movement, Shortness of breath, Dizziness, Fainting spells, Chest pain, Increased palpitations (irregular heartbeat), Calf discomfort and Uncontrolled pain Remove Dressing in: 2 days (Okay to remove dressing on 10/04/2024.) Cleanse incision/area with: Soap & Water DC O2, CPAP, BIPAP Needs PSN CPAP & BiPAP: BiPAP & CPAP Settings per PSN Fraction of Inspired Oxygen ( 98 09/30/24 00:00 FIO2) Home O2 Discharge instructions: No Meaningful Use Info Ischemic Stroke Statin Dosing Therapy Reference: STATIN DOSE THERAPY REFERENCE: * Patients > 75 years receive moderate or high dose statin therapy. * Patients 75 years or YOUNGER should receive HIGH intensity statin dose unless contraindicated. You will be required to document reason for non-treatment if statin daily dose does not meet guidelines. HIGH DOSE STATIN THERAPY DAILY Atorvastatin > than or = to 40 mg Rosuvastatin > than or = to 20 mg Amlodipine + Atorvastatin > than or = to 2.5/40 mg Ezetimibe + Simvastatin 10/80 mg Simvastatin 80mg Discharge Plan Admission Admit Date/Time: 10/02/24 15:35 Attending Provider: Rene Pennington Primary Care Provider: Rancho Knott Chi Consulting Providers: Pk Erickson Discharge Orders/Prescriptions Prescriptions: No Action levocetirizine 5 mg tablet 5 mg PO DAILY Trelegy Ellipta 100-62.5-25 mcg blister with device 1 inh inhalation DAILY levothyroxine 50 mcg tablet 75 mcg PO DAILY acetaminophen 500 mg Tablet 1,000 mg PO Q8 Qty: 0 0RF aspirin 81 mg Tablet,Delayed Release (Dr/Ec) 81 mg PO DAILYCM Qty: 0 0RF tramadol 50 mg Tablet 50 mg PO Q6H PRN PRN (Reason: Pain Score 1-5 Or Pre Pt/Ot) 7 Days Qty: 28 0RF baclofen 10 mg tablet 10 mg PO QHS omeprazole 40 mg capsule,delayed release(DR/EC) 40 mg PO QHS citalopram 20 mg tablet 20 mg PO DAILY sennosides-docusate sodium [Stimulant Laxative Plus] 8.6-50 mg Tablet 2 tab PO BID PRN (Reason: constipation) metoprolol tartrate 25 mg tablet 25 mg PO BID Qty: 180 3RF Referrals / Follow Up: Rancho Knott Chi, MD [Primary Care Provider] -
[2024-10-02] MEDS: 0.9% Normal Saline (1000mL) 1,000 ML 999 ML IV (12:23)
[2024-10-02] MEDS: Ferrous Sulfate 325 MG Tablet PO (12:24)
--- NOTE | 2024-10-02 12:46 | PN_ITS ---
Subjective Subjective Patient seen and examined. She said she felt much better today. She denied any more dizziness or lightheadedness. Her BP was down at 92/47 today. She remained asymptomatic though. Review of systems is otherwise negative. Objective Data Objective Data Vital Signs: Vital Signs Temp Pulse Resp BP Pulse Ox O2 Del Method O2 Flow Rate 98.1 F 108 H 18 111/50 L 91 Room Air 2 10/02/24 09:31 10/02/24 12:21 10/02/24 09:31 10/02/24 12:21 10/02/24 09:31 10/02/24 09:32 10/02/24 08:49 FiO2 98 09/30/24 00:00 Oxygen Flow Rate (L/min) 2 Oxygen Delivery Method Room Air Weight: 195 lb 12.8 oz Body Mass Index (BMI) 34.7 Intake & Output: Intake and Output for Last 24 Hours 09/30/24 10/01/24 10/02/24 23:59 23:59 23:59 Intake Total 2100 / 2100 1000 / 1000 Output Total 500 / 500 1050 / 1350 550 / 550 Balance 1600 / 1600 -1050 / -1350 450 / 450 Lab / Micro Data 10/02/24 06:07 09/30/24 05:47 Labs: Laboratory Results - last 24 hr 10/01/24 22:20: Urine Color Yellow, Urine Clarity Clear, Urine pH 6.0, Ur Specific [place] 1.010, Urine Protein 30 H, Urine Glucose (UA) Normal, Urine Ketones Negative, Urine Occult Blood 10 H, Urine Nitrite Negative, Urine Bilirubin Negative, Urine Urobilinogen Normal, Ur Leukocyte Esterase Negative, Urine RBC 0-5 SEEN, Urine WBC 0-5 SEEN, Ur Squamous Epith Cells 0-5 SEEN, Urine Bacteria 1+, Urine Mucus 0 SEEN 10/02/24 06:07: WBC 9.7, RBC 3.08 L, Hgb 9.3 L, Hct 30.2 L, MCV 98.1, MCH 30.2, MCHC 30.8 L, RDW Std Deviation 50.3 H, RDW Coeff of Stevie 13.9, Plt Count 217, MPV 10.0 Physical Exam Const alert, oriented x3 and no apparent distress General Appearance: cooperative HEENT normocephalic, head/scalp atraumatic, moist oral mucous membranes and oropharynx normal Eyes PERRL and EOMs intact bilaterally Neck no lymphadenopathy and supple Lymph Lymphatic: no lymphadenopathy noted and no lymphedema noted Resp normal respiratory effort, normal air movement and clear to auscultation bilaterally Cardio regular rate, regular rhythm, S1 normal heart sound, S2 normal heart sound and no murmurs Extremity normal capillary refill, no clubbing, cyanosis or edema and no calf tenderness General Extremity: no tenderness to palpation of joints or extremities Skin Skin Narrative: intact dressing over left hip at surgical site General Skin Exam: no breakdown Neuro CN's II-XII intact bilaterally, no focal motor deficits and no sensory deficits noted Motor Exam: strength 5/5 throughout and general weakness Psych thought process normal and cooperative Appearance: appropriate Assessment & Plan Assessment/Plan (1) Status post left hip replacement: (2) Dizziness: PLAN: Plan #Dizziness * resovled. BP has been running low this morning though. BP was down at 92/47 today * will give a bolus of normal saline 1L x 1 and continue with IVF NS @ 125cc/hr x 1 bag * dc metoprolol * PT/OT on board. * Fall precautions #Hypotension: as above #Hypothyroidism: On Synthroid #Hypertension: On metoprolol. DC metoprolol due to hypotension. #Depression: On citalopram #History of asthma: Not in exacerbation. On Trelegy DVT prophylaxis; on eliquis 2.5mg bid as per primary service Thanks for the courtesy of the consult. Hospitalist service will continue to follow with you. To hydrate patient overnight and then for possible dc tomorrow from hospitalist standpoint. Charges/Coding Visit Charges Inpatient E&M: 12221 Subs Hosp L2
[2024-10-02] MEDS: 0.9% Normal Saline (1000mL) 1,000 ML 125 ML IV (14:21)
[2024-10-02] MEDS: 0.9% Saline Lock 10 ML Syringe IV (14:36)
--- NOTE | 2024-10-02 15:58 | CASEMGMT ---
Social Work- Pt is not medically ready and will not discharge today. Pt and TCU updated. Plan: TCU; when medically ready GENO Nieves
[2024-10-02] MEDS: Pantoprazole Sodium 40 MG Tablet PO (22:54)
[2024-10-02] MEDS: Baclofen 10 MG Tablet PO (22:54)
[2024-10-03 04:37] VITALS: BP 131/69; PULSE 96; RESP 18; TEMP 37.1; O2SAT 95
[2024-10-03] MEDS: oxyCODONE 5 MG Tablet PO ×3 (04:48→15:51)
[2024-10-03] MEDS: Acetaminophen 500 MG Tablet 1000 MG PO ×2 (06:40→13:26)
[2024-10-03] MEDS: Nystatin Powder 15gm Bottle 1 APPLIC TOPICAL ×2 (06:40→13:25)
[2024-10-03] MEDS: Levothyroxine 75 MCG Tablet PO (06:41)
--- NOTE | 2024-10-03 07:12 | PCM.DC.SUM ---
Providers Date of Admission: 10/02/24 Primary Care Physician: Dr. Rancho Knott MD Consultations 09/29/24 07:09 Consult: Hospitalist Routine Consulting Provider: Pk Erickson Reason for Consult: post op med management EMERGENT Consult: No MD Notified: Yes Date Notified: 09/29/24 Time Notified: 12:22 Method of Notification: Text Reason For Visit: Total Hip Anterior Approach Diagnosis Discharge Diagnosis (1) Status post left hip replacement: Status: Acute Code(s): Z96.642 - Presence of left artificial hip joint Plan: 1. DVT prophylaxis: Due to past history of DVT patient will be on Eliquis postoperatively for 2 weeks. After 2 weeks she will then use aspirin 81 mg 2 times per day until 4 weeks postoperatively. Patient will also be wearing TIFFANI hose for 2 weeks postoperatively. 2. Pain medications: Patient was instructed that she can take Tylenol 1000 mg every 8 hours [id number] taking no more than 3000 mg in 24 hours. Patient was then instructed to take oxycodone as needed for breakthrough pain. Patient was stating that tramadol was not covering her pain so medication was switched to oxycodone. Patient's primary care provider was giving patient narcotics. Patient's primary care provider was spoke to and they would like orthopedics to manage narcotics postoperatively. OARRS report was reviewed today. The risk of abuse potential for narcotic pain medication was discussed and reviewed. Patient was advised not to drive a motor vehicle or operate heavy equipment while taking narcotic pain medication. Patient voiced understanding. 3. Constipation: Patient was instructed to take senna as instructed until her first bowel movement to decrease risk of impaction following surgery. Patient states that she has not currently had a bowel movement. I will add MiraLAX to patient's regimen.. 4. Physical therapy: Patient states that she has worked with physical therapy yesterday and it has went well. Patient will work with physical therapy again today. 5. Labs: H&H: 9.3.2. Patient's symptoms of nausea, dizziness, and lightheadedness are much better from yesterday. We will start anemia protocol and begin ferrous sulfate and folic acid. 6. Incentive spirometer: Patient was encouraged to use incentive spirometer every hour that they are awake for the first week to exercise along decrease risk of postoperative infection. 7. Dressings: Patient was educated that the dressing will stay in place for 5 days postoperatively. Patient was educated that the dressing is waterproof and she may get the dressing wet. Patient was educated that on postop day 1 patient was able to take a shower over dressing. Patient was educated to take dressing off on postop day 5 and as long as incision looks clean dry and intact she was able to leave dressing off. 8. Postoperative instructions: Patient will follow postoperative instructions as well as follow-up per [facility] postoperative instructions. 9. Medicines involvement: Appreciate recommendations from medicine for safe and proper discharge. 10. Patient is not to be taking any nonsteroidal anti-inflammatory medications due to a GFR of 52. Appreciate recommendations from medicine. 11. As long as patient's pain remains adequately controlled, okay from medicine standpoint, and continues to do well with physical therapy patient will be discharged today. Plan is for patient to be discharged to [facility] TCU. Patient does have some concerns with safety while going home. Patient feels that she would benefit from a skilled rehab facility. Patient has spoke with her primary care provider about this and was told that she has a room at the [facility]CU. Patient was educated that she will have to talk to case management about this. Medications at Discharge Home Medications levocetirizine 5 mg tablet 5 mg PO DAILY ALLERGIES 04/06/20 levothyroxine 50 mcg tablet 75 mcg PO DAILY THYROID 06/21/22 fluticasone fur. 100 mcg-umeclid 62.5 mcg-vilant 25 mcg inhalat.powder (Trelegy Ellipta) 1 inh inhalation DAILY asthma 12/27/22 baclofen 10 mg tablet 10 mg PO QHS muscle relaxer 03/09/24 citalopram 20 mg tablet 20 mg PO DAILY antidepressant 03/09/24 omeprazole 40 mg capsule,delayed release 40 mg PO QHS acid reflux 03/09/24 acetaminophen 500 mg tablet 1,000 mg (2 x 500 mg) PO Q8 #0 tabs 03/25/24 aspirin 81 mg tablet,delayed release 81 mg PO DAILYCM #0 tabs 03/25/24 Held on 10/03/24. Instructions: Resume on 10/14/24. Will resume aspirin 81 mg 2 times daily following 2 weeks of Xarelto postoperatively. tramadol 50 mg tablet 50 mg PO Q6H PRN PRN Pain Score 1-5 Or Pre Pt/Ot 7 days #28 tabs 03/25/24 Held on 10/03/24. Instructions: Do not take tramadol while taking oxycodone. sennosides 8.6 mg-docusate sodium 50 mg tablet (Stimulant Laxative Plus) 2 tab PO BID PRN constipation 09/01/24 acetaminophen 500 mg tablet 1,000 mg (2 x 500 mg) PO TID #0 tabs 10/03/24 apixaban 5 mg tablet (Eliquis) 2.5 mg (1/2 x 5 mg) PO BID 10 days #10 tabs 10/03/24 ferrous sulfate 325 mg (65 mg iron) tablet (FeroSul) 325 mg PO DAILY@1200 14 days #14 tabs 10/03/24 folic acid 1 mg tablet 1 mg PO BREAKFAST 14 days #14 tabs 10/03/24 metoprolol tartrate 25 mg tablet 12.5 mg (1/2 x 25 mg) PO BID #30 tabs 10/03/24 oxycodone 5 mg tablet 5 - 10 mg (1 - 2 x 5 mg) PO Q4H PRN PRN As needed for pain control 7 days #42 tabs 10/03/24 Hospital Course Operations total hip replacement (Anterior hip replacement on 09/29/[address] Pennington.) Summary of Care Provided Hospital Course: Patient is an 83-year-old female who presented for left total hip arthroplasty using the anterior approach on 09/29/[address] Rene Pennington. Patient was told prior to surgery that her primary care provider was able to get her a bed at [facility]. Patient then had another stay in the hospital due to to having symptoms of nausea, dizziness, and lightheadedness yesterday while working with physical therapy. We were also monitoring patient's hemoglobin which has now dropped to 9.3 and patient has been placed on ferrous sulfate and folic acid. Patient has worked with physical therapy at this point. Patient states that today she feels much better and feels that her symptoms from yesterday have resolved. Patient will be on Tylenol 1000 mg every 8 hours taking no more than 3000 mg in a day for postoperative pain, senna and MiraLAX for postop constipation, MiraLAX was added to regimen 10/02/2024 as patient has not had a bowel movement. Patient will be on Eliquis for 2 weeks following surgery and then aspirin 81 mg 2 times per day for another 2 weeks. Patient will be on Zofran as needed for nausea and vomiting. Patient will be on oxycodone as needed for pain control following use of Tylenol. Patient did have temperature of 100.2 overnight on 10/01/2024. Dr. Pennington was updated by myself did not want to add any medications to current regimen. Patient did require another night stay in the hospital on 10/02/2024 as patient's blood pressure was not stabilized. Patient was given another bolus of fluid on 10/02/2024 in hopes to stabilize blood pressure. Patient denied any chills or signs of infection. Dressing was looked at with postoperative edema of the hip. Patient states that she feels she is getting better every day. Will have patient follow-up with primary care provider in 2 weeks with labs to follow and treat anemia. Physical Exam Const alert, oriented x3 and no apparent distress Weight / BMI Weight Weight: 88.813 kg Body Mass Index (BMI) 34.7 ABG / Lab / Microbiology Data 10/03/24 08:45 09/30/24 05:47 Laboratory: Laboratory Results - last 24 hr 10/03/24 08:45: WBC 8.4, RBC 3.13 L, Hgb 9.8 L, Hct 30.2 L, MCV 96.5, MCH 31.3, MCHC 32.5 D, RDW Std Deviation 48.8 H, RDW Coeff of Stevie 13.8, Plt Count 297, MPV 10.2 Microbiology: Microbiology 10/01/24 22:20 Urine, Clean Catch Urine Culture - Preliminary GNR lactose maintenance technician GNR Poss Pseudomonas sp D/C Instructions Discharge Diet: No restrictions Discharge Activity: Return to Normal Activity and Use Walker (Weightbearing as tolerated with walker.) Weight Bearing Status: Weight bearing as tolerated (With walker) Keep extremity elevated above heart level: Left Leg Call your doctor if your incision/area has: Continuous Slow Oozing, Increased Pain/ Swelling, Increased Redness and Foul Smelling Discharge Call your doctor if you observe: Fever of 101 or Higher, Coldness, Increased Pain, Change in Color, Inability to urinate, Inability to have a bowel movement, Shortness of breath, Dizziness, Fainting spells, Chest pain, Increased palpitations (irregular heartbeat), Calf discomfort and Uncontrolled pain Remove Dressing in: 1 day (Patient may remove dressing on 10/04/2024. If incision looks clean dry and intact patient is able to shower using gentle soap and water.) Cleanse incision/area with: Soap & Water DC O2, CPAP, BIPAP Needs PSN CPAP & BiPAP: BiPAP & CPAP Settings per PSN Fraction of Inspired Oxygen ( 98 09/30/24 00:00 FIO2) Home O2 Discharge instructions: No Meaningful Use Info Meaningful Use Meaningful Use Diagnoses (Choose all that apply): None applicable Ischemic Stroke Statin Dosing Therapy Reference: STATIN DOSE THERAPY REFERENCE: * Patients > 75 years receive moderate or high dose statin therapy. * Patients 75 years or YOUNGER should receive HIGH intensity statin dose unless contraindicated. You will be required to document reason for non-treatment if statin daily dose does not meet guidelines. HIGH DOSE STATIN THERAPY DAILY Atorvastatin > than or = to 40 mg Rosuvastatin > than or = to 20 mg Amlodipine + Atorvastatin > than or = to 2.5/40 mg Ezetimibe + Simvastatin 10/80 mg Simvastatin 80mg Discharge Plan Admission Admit Date/Time: 10/02/24 15:35 Attending Provider: Rene Pennington Primary Care Provider: Rancho Knott Chi Consulting Providers: Pk Erickson Discharge Orders/Prescriptions Prescriptions: New acetaminophen 500 mg Tablet 1,000 mg PO TID Qty: 0 0RF Eliquis 5 mg Tablet 2.5 mg PO BID 10 Days Qty: 10 0RF Rx Instructions: Take until 2 weeks postoperatively due to previous DVT. ferrous sulfate [FeroSul] 325 mg (65 mg iron) Tablet 325 mg PO DAILY@1200 14 Days Qty: 14 0RF Rx Instructions: Take due to postoperative anemia and see primary care provider for chronic management. folic acid 1 mg Tablet 1 mg PO BREAKFAST 14 Days Qty: 14 0RF Rx Instructions: Take due to postoperative anemia and see primary care provider for chronic management. oxycodone 5 mg Tablet 5 - 10 mg PO Q4H PRN PRN (Reason: As needed for pain control) 7 Days Qty: 42 0RF metoprolol tartrate 25 mg tablet 12.5 mg PO BID Qty: 30 0RF Continued levocetirizine 5 mg tablet 5 mg PO DAILY Trelegy Ellipta 100-62.5-25 mcg blister with device 1 inh inhalation DAILY levothyroxine 50 mcg tablet 75 mcg PO DAILY baclofen 10 mg tablet 10 mg PO QHS omeprazole 40 mg capsule,delayed release(DR/EC) 40 mg PO QHS citalopram 20 mg tablet 20 mg PO DAILY sennosides-docusate sodium [Stimulant Laxative Plus] 8.6-50 mg Tablet 2 tab PO BID PRN (Reason: constipation) Held aspirin 81 mg Tablet,Delayed Release (Dr/Ec) 81 mg PO DAILYCM Qty: 0 0RF Hold Instructions: Resume on 10/14/24. Will resume aspirin 81 mg 2 times daily following 2 weeks of Xarelto postoperatively. tramadol 50 mg Tablet 50 mg PO Q6H PRN PRN (Reason: Pain Score 1-5 Or Pre Pt/Ot) 7 Days Qty: 28 0RF Hold Instructions: Do not take tramadol while taking oxycodone. Discontinued metoprolol tartrate 25 mg tablet 25 mg PO BID Qty: 180 3RF No Action acetaminophen 500 mg Tablet 1,000 mg PO Q8 Qty: 0 0RF Other Ambulatory Orders: CBC-Complete Blood Cnt No Diff (Routine) Timeframe: 2 Weeks Facility: [facility] - Location: Laboratory Ordered By: Monica Duffy Referrals / Follow Up: Rancho Knott Chi, MD [Primary Care Provider] - Jj Hensley PA-C [Med Staff - Adv Practice Prof] - 10/13/24 8:45 am Disposition Disposition (needs filled in before D/C Order can be placed): Inpatient Rehab Unit/Facility
[2024-10-03 07:13] VITALS: PULSE 108; RESP 20; O2SAT 92
[2024-10-03] MEDS: Ipratropium/Albuterol Sulfate 3 ML AMPUL.NEB INHALATION ×2 (07:13→13:42)
[2024-10-03] MEDS: Budesonide Respules 0.5 MG/2 ML AMPUL.NEB. INHALATION (07:13)
--- NOTE | 2024-10-03 07:14 | PN.ORTHO_ITS ---
Subjective Subjective Patient appears comfortable in bed. Patient states that she feels that she is getting better every day. Patient states that she has been working with physical therapy and it has been going well. Patient denies any shortness of breath, chest pain, calf pain, fever, chills, dizziness, nausea, vomiting. Patient denies any adverse events overnight. Patient denies any lightheadedness. Patient has not yet had a bowel movement. Patient states that she may be having some sinus issues which she says happens from time to time. Objective Data Objective Data Vital Signs: Vital Signs Temp Pulse Resp BP Pulse Ox O2 Del Method O2 Flow Rate 98.7 F 96 18 131/69 H 95 Room Air 2 10/03/24 04:37 10/03/24 04:37 10/03/24 04:37 10/03/24 04:37 10/03/24 04:37 10/03/24 04:37 10/02/24 20:00 FiO2 98 09/30/24 00:00 Oxygen Flow Rate (L/min) 2 Oxygen Delivery Method Room Air Weight: 88.813 kg Body Mass Index (BMI) 34.7 Intake & Output: Intake and Output for Last 24 Hours 10/01/24 10/02/24 10/03/24 23:59 23:59 23:59 Intake Total 2660 / 3160 1500 / 1500 Output Total 1050 / 1350 550 / 1100 900 / 900 Balance -1050 / -1350 2110 / 2060 600 / 600 Lab / Micro Data 10/02/24 06:07 09/30/24 05:47 Labs: Laboratory Results - last 24 hr 10/01/24 22:20: Urine RBC 0-5 SEEN, Urine WBC 0-5 SEEN, Ur Squamous Epith Cells 0-5 SEEN, Urine Bacteria 1+, Urine Mucus 0 SEEN Physical Exam Narrative 1. TIFFANI hose in place bilaterally. 2. SCDs in place bilaterally. 3. Dressing is with minimal drainage on the proximal one third of the dressing. 4. Left hip is soft and supple. 5. Dorsiflexion plantarflexion are performed actively without pain or restriction. 6. Sensation intact to light touch. 7. Neurovascularly intact overall. 8. Negative Homans bilaterally. Const alert, oriented x3 and no apparent distress Assessment & Plan Assessment/Plan (1) Status post left hip replacement: PLAN: 1. DVT prophylaxis: Due to past history of DVT patient will be on Eliquis postoperatively for 2 weeks. After 2 weeks she will then use aspirin 81 mg 2 times per day until 4 weeks postoperatively. Patient will also be wearing TIFFANI hose for 2 weeks postoperatively. 2. Pain medications: Patient was instructed that she can take Tylenol 1000 mg every 8 hours [id number] taking no more than 3000 mg in 24 hours. Patient was then instructed to take oxycodone as needed for breakthrough pain. Patient was stating that tramadol was not covering her pain so medication was switched to oxycodone. Patient's primary care provider was giving patient narcotics. Patient's primary care provider was spoke to and they would like orthopedics to manage narcotics postoperatively. OARRS report was reviewed today. The risk of abuse potential for narcotic pain medication was discussed and reviewed. Patient was advised not to drive a motor vehicle or operate heavy equipment while taking narcotic pain medication. Patient voiced understanding. 3. Constipation: Patient was instructed to take senna as instructed until her first bowel movement to decrease risk of impaction following surgery. Patient has not yet had a bowel movement. MiraLAX was added to patient's regimen yesterday. Patient is hopeful she will have a bowel movement today. 4. Physical therapy: Patient states that she has been working with physical therapy and things have went well. Patient will work with physical therapy again today before discharge. Patient will continue working with physical therapy and TCU. 5. Labs: H&H: Patient's CBC was ordered today. Will keep an eye out to review results. Patient was started on ferrous sulfate and folic acid yesterday due to hemoglobin of 9.3. Patient is nonsymptomatic today. 6. Incentive spirometer: Patient was encouraged to use incentive spirometer every hour that they are awake for the first week to exercise along decrease risk of postoperative infection. 7. Dressings: Patient was educated that the dressing will stay in place for 5 days postoperatively. Patient was educated that the dressing is waterproof and she may get the dressing wet. Patient was educated that on postop day 1 patient was able to take a shower over dressing. Patient was educated to take dressing off on postop day 5 and as long as incision looks clean dry and intact she was able to leave dressing off. 8. Postoperative instructions: Patient will follow postoperative instructions as well as follow-up per [facility] postoperative instructions. 9. Medicines involvement: Appreciate recommendations from medicine for safe and proper discharge. 10. Patient is not to be taking any nonsteroidal anti-inflammatory medications due to a GFR of 52. Appreciate recommendations from medicine. 11. Patient did have an extra stay in hospital last night due to blood pressure not being stabilized. Patient received another fluid bolus yesterday by hospitalist. Appreciate recommendations from hospitalist. 12. As long as patient's pain remains adequately controlled, okay from medicine standpoint, and continues to do well with physical therapy patient will be discharged today. Plan is for patient to be discharged to [facility] TCU. Patient does have some concerns with safety while going home. Patient feels that she would benefit from a skilled rehab facility. Patient has spoke with her primary care provider about this and was told that she has a room at the [facility] TCU. Patient was educated that she will have to talk to case management about this.
[2024-10-03 09:05] LABS: Hematocrit 30.2 % (37-47); Hemoglobin 9.8 g/dL (12.0-15.0); Mean Corp Hgb Conc 32.5 g/dL (32-36); Mean Corpuscular Hgb 31.3 pg (27.0-32.0); Mean Corpuscular Volume 96.5 fL (81-99); Mean Platelet Vol. 10.2 fl (6.2-12.0); Platelet Count 297 K/mm3 (150-450); RBC Distribution Width CV 13.8 % (11.6-14.6); RBC Distribution Width SD 48.8 fl (35.1-43.9); Red Blood Count 3.13 M/mm3 (4.2-5.4); White Blood Count 8.4 K/mm3 (4.4-11.0)
[2024-10-03 09:07] LABS: Scan Indicated on CBC? Y/N NO
[2024-10-03] MEDS: Folic Acid 1 MG Tablet PO (09:08)
[2024-10-03] MEDS: Menthol/Lanolin/Calamine/Znox 113 GM Tube 1 APPLIC TOPICAL (09:08)
[2024-10-03] MEDS: Loratadine 10 MG Tablet PO (09:09)
[2024-10-03] MEDS: Citalopram 20 MG Tablet PO (09:09)
[2024-10-03] MEDS: APIXABAN 2.5 MG TABLET (WCH) PO (09:10)
[2024-10-03] MEDS: Polyethylene Glycol 3350 17 GM PACKET PO (09:11)
[2024-10-03] MEDS: Senna/Docusate Sodium 1 Tablet 2 TABLET PO (09:11)
[2024-10-03] MEDS: Ensure Surgery 237 ML LIQUID PO ×2 (09:45→13:16)
[2024-10-03 09:46] VITALS: BP 122/65; PULSE 104; RESP 16; TEMP 37.1; O2SAT 93
--- NOTE | 2024-10-03 11:20 | PN_ITS ---
Subjective Subjective Patient seen and examined. Says she felt much better today. Her dizziness has not recurred. She had an uneventful night and review of systems otherwise negative. She has remained hemodynamically stable. Her blood pressure is also improved. Objective Data Objective Data Vital Signs: Vital Signs Temp Pulse Resp BP Pulse Ox O2 Del Method O2 Flow Rate 98.7 F 104 H 16 122/65 H 93 Room Air 2 10/03/24 09:46 10/03/24 09:46 10/03/24 09:46 10/03/24 09:46 10/03/24 09:46 10/03/24 09:46 10/02/24 20:00 FiO2 98 09/30/24 00:00 Oxygen Flow Rate (L/min) 2 Oxygen Delivery Method Room Air Weight: 195 lb 12.8 oz Body Mass Index (BMI) 34.7 Intake & Output: Intake and Output for Last 24 Hours 10/01/24 10/02/24 10/03/24 23:59 23:59 23:59 Intake Total 2660 / 3160 1500 / 1500 Output Total 1050 / 1350 550 / 1100 900 / 900 Balance -1050 / -1350 2110 / 2060 600 / 600 Lab / Micro Data 10/03/24 08:45 09/30/24 05:47 Labs: Laboratory Results - last 24 hr 10/03/24 08:45: WBC 8.4, RBC 3.13 L, Hgb 9.8 L, Hct 30.2 L, MCV 96.5, MCH 31.3, MCHC 32.5 D, RDW Std Deviation 48.8 H, RDW Coeff of Stevie 13.8, Plt Count 297, MPV 10.2 Micro: Microbiology 10/01/24 22:20 Urine, Clean Catch Urine Culture - Preliminary GNR lactose optometrist assistant GNR Poss Pseudomonas sp Physical Exam Const alert, oriented x3 and no apparent distress General Appearance: cooperative and well developed HEENT normocephalic, head/scalp atraumatic, moist oral mucous membranes and oropharynx normal Eyes PERRL and EOMs intact bilaterally Neck no lymphadenopathy and supple Lymph Lymphatic: no lymphadenopathy noted and no lymphedema noted Resp normal respiratory effort, normal air movement and clear to auscultation bilaterally Cardio regular rate, regular rhythm, S1 normal heart sound, S2 normal heart sound and no murmurs Extremity normal capillary refill, no clubbing, cyanosis or edema and no calf tenderness General Extremity: no tenderness to palpation of joints or extremities Skin Skin Narrative: intact dressing over left hip at surgical site General Skin Exam: no breakdown Neuro CN's II-XII intact bilaterally, no focal motor deficits and no sensory deficits noted Motor Exam: strength 5/5 throughout and general weakness Psych thought process normal and cooperative Appearance: appropriate Assessment & Plan Assessment/Plan (1) Status post left hip replacement: (2) Dizziness: PLAN: Plan #Dizziness * resovled. hypotension also resolved. * dc metoprolol * PT/OT on board. * Fall precautions #Hypotension: * as above. Resolved. Patient now tachycardic with heart rate up in the 110s. * She has been on Eliquis for DVT prophylaxis so low suspicion for PE. * She also metoprolol but this was discontinued. * Will resume metoprolol at 12.5 mg twice daily which is a half dose from her 25 mg twice daily. #Hypothyroidism: On Synthroid #Hypertension: On metoprolol. resume metoprolol at a lower dose of 12.5mg bid today due to hypotension #Depression: On citalopram #History of asthma: Not in exacerbation. On Trelegy DVT prophylaxis; on eliquis 2.5mg bid as per primary service Thanks for the courtesy of the consult. Patient stable for dc from hospitalist standpoint Charges/Coding Visit Charges Inpatient E&M: 20947 Subs Hosp L2
[2024-10-03] MEDS: Morphine 2 MG/ML Syringe IV (13:16)
[2024-10-03] MEDS: 0.9% Saline Lock 10 ML Syringe IV (13:17)
[2024-10-03] MEDS: Ferrous Sulfate 325 MG Tablet PO (13:26)
[2024-10-03 13:45] VITALS: PULSE 104; RESP 18
--- NOTE | 2024-10-03 14:50 | CASEMGMT ---
Social Work Precert has been obtained.? Physician updated and pt is ready for discharge today.?SW met with pt and they are agreeable to discharge plan as stated above.? Bedside nurse notified of discharge. SW faxed paperwork to TCU. Plan: TCU; skilled level of care. GENO Nieves
== END 2024-10-03 16:20 | DRG 470 ==
LOC: SDC 12:11 → MS3 12:11
PROVIDERS: Family Medicine; Admitting Provider Specialist; PCP Family Medicine Geriatric Medicine; Referring Provider Specialist; Visit Provider Specialist
PROC: (CPT 27284; principal; 2024-09-29 07:05)
DX: M16.12 Unilateral primary osteoarthritis, left hip (principal); D64.9 Anemia, unspecified; J44.9 Chronic obstructive pulmonary disease, unspecified; E03.9 Hypothyroidism, unspecified; I10 Essential (primary) hypertension; F32.A Depression, unspecified; E66.9 Obesity, unspecified; I48.91 Unspecified atrial fibrillation; K21.9 Gastro-esophageal reflux disease without esophagitis; G47.33 Obstructive sleep apnea (adult) (pediatric); M54.50 Low back pain, unspecified; E78.5 Hyperlipidemia, unspecified; F41.9 Anxiety disorder, unspecified; I95.9 Hypotension, unspecified; K59.00 Constipation, unspecified; G47.00 Insomnia, unspecified; R79.89 Other specified abnormal findings of blood chemistry; G89.29 Other chronic pain; Z88.0 Allergy status to penicillin; Z86.718 Personal history of other venous thrombosis and embolism; Z79.899 Other long term (current) drug therapy; Z79.890 Hormone replacement therapy; Z79.82 Long term (current) use of aspirin; Z68.35 Body mass index [BMI] 35.0-35.9, adult
CPT/HCPCS: 36415; 73501; 73502; 76000; 80048; 81001; 82962; 85027; 87077; 87086; 87088; 87184; 87186; 88305; 88311; 94640; 94668; 97110; 97116; 97162; 97166; 97530; 97535; 99252; C1776; A4216; G0463; J2405; J3475

== ENCOUNTER 2024-10-03 16:24 | Inpatient (IN) | payer MEDICARE, SELFPAY ==
[2024-10-03 16:33] VITALS: BP 139/78; PULSE 118; RESP 18; TEMP 36.2; O2SAT 95; BMI 36.9
--- NOTE | 2024-10-03 18:09 | PCM.HP.STD ---
HPI - General General Date of Admission: 10/03/24 Date of Service: 10/03/24 Chief Complaint: Here for rehabilitation. HPI Narrative ALEJANDRA SHERMAN, is a 83 Female who presents with followin09/29/2024 Admit [facility]. 09/29/2024 Dr. Pennington performed minimally invasive direct anterior left total hip replacement. 09/29/2024 Doing well, on oxygen post op. PT/OT. 09/30/2024 Comfortable, worked with PT yesterday. Pain controlled, patient planned TCU. Eliquis x 2 weeks, then aspirin 81mg bid x 2 weeks for dvt prophylaxis. Tylenol, Tramadol for pain. 09/30/2024 No acute events overnight. Using incentive spirometry. PT/OT, Hemoglobin stable. 10/01/2024 IV fluids Zofran IV for dizziness. Check orthostatic vital signs. PT/OT. 10/02/2024 Feeling better, dizziness/lightheadedness resolved. Blood pressure 92/47. Stop Metoprolol, give IV fluids x 1 liter bolus, then 125cc per hour for hypotension. Eliquis 2.5mg bid dvt prophylaxis. 10/03/2024 Admit to TCU with debility, here for rehabilitation, strengthening, prior to discharge home with . [facility] Medical History (Updated 10/03/24 @ 18:[address] Rancho Knott MD) Wears hearing aid Wears dentures Post-menopausal Depression Bladder disease Uses wheelchair Walker as ambulation aid Easy bruising Back pain Restless legs Former smoker Leg cramps History of pain when walking History of edema History of echocardiogram History of stress test History of Holter monitoring Hypertension Cardiology follow-up encounter History of atrial fibrillation MRSA infection Hx of deep venous thrombosis Anxiety GERD (gastroesophageal reflux disease) CPAP (continuous positive airway pressure) dependence Migraines Hypothyroidism History of asthma History of COPD History of arthritis History of Right Foot Fracture Home Medications ?Medication ?Instructions ?Recorded ?Last Taken ?Type levocetirizine 5 mg tablet 5 mg PO DAILY ALLERGIES 04/06/20 10/03/24 09:10 History levothyroxine 50 mcg tablet 75 mcg PO DAILY THYROID 06/21/22 10/03/24 06:40 History fluticasone fur. 100 mcg-umeclid 1 inh inhalation DAILY asthma 12/27/22 09/28/24 08:00 History 62.5 mcg-vilant 25 mcg inhalat.powder (Trelegy Ellipta) baclofen 10 mg tablet 10 mg PO QHS muscle relaxer 03/09/24 10/02/24 22:55 History citalopram 20 mg tablet 20 mg PO DAILY antidepressant 03/09/24 10/03/24 09:10 History omeprazole 40 mg capsule,delayed 40 mg PO QHS acid reflux 03/09/24 10/02/24 22:55 History release acetaminophen 500 mg tablet 1,000 mg (2 x 500 mg) PO Q8 Pain 03/25/24 09/28/24 19:00 Rx #0 tabs aspirin 81 mg tablet,delayed 81 mg PO DAILY Heart [facility] #0 03/25/24 09/24/24 Rx release tabs Held on 10/03/24. Instructions: Resume on 10/14/24. Will resume aspirin 81 mg 2 times daily following 2 weeks of Xarelto postoperatively. tramadol 50 mg tablet 50 mg PO Q6H PRN PRN Pain Score 03/25/24 09/28/24 19:00 Rx Held on 10/03/24. 1-5 Or Pre Pt/Ot 7 days #28 tabs Instructions: Do not take tramadol while taking oxycodone. sennosides 8.6 mg-docusate sodium 2 tab PO BID PRN constipation 09/01/24 Unknown History 50 mg tablet (Stimulant Laxative Plus) acetaminophen 500 mg tablet 1,000 mg (2 x 500 mg) PO TID Pain 10/03/24 10/03/24 06:40 Rx #0 tabs apixaban 5 mg tablet (Eliquis) 2.5 mg (1/2 x 5 mg) PO BID 10/03/24 10/03/24 09:10 Rx Prophylaxis for DVT 10 days #10 tabs ferrous sulfate 325 mg (65 mg 325 mg PO DAILY@1200 Supplement 14 10/03/24 10/02/24 Rx iron) tablet (FeroSul) days #14 tabs folic acid 1 mg tablet 1 mg PO BREAKFAST Supplement 14 10/03/24 10/03/24 09:10 Rx days #14 tabs metoprolol tartrate 25 mg tablet 12.5 mg (1/2 x 25 mg) PO BID BP 10/03/24 Unknown Rx #30 tabs oxycodone 5 mg tablet 5 - 10 mg (1 - 2 x 5 mg) PO Q4H 10/03/24 Unknown Rx PRN PRN As needed for pain control 7 days #42 tabs Allergy/AdvReac Type Severity Reaction Status Date / Time Penicillins Allergy Severe facial Verified 09/29/24 05:54 swelling latex Allergy Intermediate itch and Verified 09/29/24 05:54 burn Family History Mother Hypertension CVA (cerebral vascular accident) Father Hypertension CVA (cerebral vascular accident) Surgical History Status post left hip replacement History of esophagogastroduodenoscopy (EGD) Hx of elbow surgery History of foot surgery Hx of tubal ligation S/P foot surgery, right History of appendectomy History of cholecystectomy Social History household members: spouse Smoking Status: Former smoker alcohol intake: never substance use type: does not use ROS Constitutional Constitutional: Reports weakness; Denies chills, fever(s) or weight gain ENT HEENT: Denies headache(s), nasal congestion or nasal discharge Cardiovascular Cardiovascular: Denies chest pain or palpitations Respiratory/Chest Respiratory/Chest: Denies cough, excessive phlegm production or shortness of breath with exertion Gastrointestinal Gastrointestinal: Denies abdominal pain, nausea or vomiting Genitourinary Genitourinary: Denies dysuria Musculoskeletal Musculoskeletal: Denies joint pain or joint swelling Integumentary Integumentary: Denies rash or wounds Neurologic Neurologic: Denies focal weakness, numbness or tingling Psychiatric Psychiatric: Denies anxiety, auditory hallucinations, depression, homicidal ideation or suicidal ideation Vital Signs Vital Signs Vital Signs: 10/03/24 16:33 10/03/24 16:33 Temperature 97.1 F L Temperature Source Temporal Pulse Rate 118 H 118 H Pulse Rhythm Regular Pulse Strength Normal (2+) Respiratory Rate 18 18 Respiratory Effort Normal Non-Labored Respiratory Depth Normal Respiratory Pattern Normal Blood Pressure 139/78 H Blood Pressure Mean 98 Blood Pressure Source Monitor Blood Pressure Position Semi-Fowlers Blood Pressure Location Right Arm Pulse Ox 95 95 Oxygen Delivery Method Room Air Room Air Weight Weight: 91.648 kg Body Mass Index (BMI) 36.9 Physical Exam Const alert General Appearance: cooperative HEENT normocephalic Eyes PERRL and EOMs intact bilaterally Neck supple, no JVD and no carotid bruits Resp normal respiratory effort, normal air movement and clear to auscultation bilaterally Cardio regular rate and regular rhythm GI normal to inspection, nondistended, normoactive bowel sounds, non-tender and non-distended Extremity normal capillary refill General Extremity: Negative for edema Skin no rashes or lesions noted General Skin Exam: no breakdown Psych affect normal Appearance: appropriate Assessment & Plan Assessment/Plan (1) Debility: (2) Status post left hip replacement: (3) Essential (primary) hypertension: (4) Hypothyroidism: (5) GERD (gastroesophageal reflux disease): (6) COPD (chronic obstructive pulmonary disease): (7) Obstructive sleep apnea: (8) Depression: (9) Insomnia: (10) Low back pain: (11) Hx of deep venous thrombosis: (12) Atrial fibrillation: PLAN: Plan 83 year old female with below past medical history underwent left total hip replacement 09/29/[address] Pennington, postoperative course complicated by orthostatic hypotension, admitted to TCU with debility, here for rehabilitation, strengthening, prior to discharge home with . Debility - PT/OT. Pain - Tylenol 1000mg tid, Oxycodone 5-10mg q4 prn. Bowel - senna/colace 2 tablets bid, Miralax 17gm daily. Adult immunization - Administer pneumonia vaccine, covid vaccine, flu vaccine as appropriate. DVT prophylaxis - Eliquis 2.5mg bid thru 10/13/2024, then Aspirin 81mg bid thru 11/11/2024. Muscle spasm - Baclofen 10mg qhs. Depression - Citalopram 20mg daily, stable chronic buttermaker continuous churn use, GDR not recommended. Iron deficiency anemia - Ferrous sulfate 325mg daily. COPD - Fluticasone Salmeterol 1 puff Q12, Incruse 1 puff daily. Folate deficiency - Folic acid 1mg daily. Hypothyroidism - Levothyroxine 75mcg daily. Allergic rhinitis - Loratadine 10mg daily. Hypertension - Metoprolol 12.5mg bid. GERD - Pantoprazole 40mg qhs.
--- NOTE | 2024-10-03 18:17 | CPS ---
[1817] Pt.'s I.S./PEP ordered completed due to pt. having prior orders while on hospital floor (Med-Surg 3).
[2024-10-03 21:17] VITALS: BP 141/74; PULSE 95; O2SAT 95
[2024-10-03 21:19] VITALS: BP 141/74; PULSE 95
[2024-10-03] MEDS: Metoprolol Tartrate 25 MG Tablet 12.5 MG PO (21:19)
[2024-10-03] MEDS: APIXABAN 2.5 MG TABLET (WCH) PO (21:20)
[2024-10-03] MEDS: Fluticasone/Salmeterol 232-14 Inhaler 1 PUFF INHALATION (21:21)
[2024-10-03] MEDS: Baclofen 10 MG Tablet PO (21:23)
[2024-10-03] MEDS: Pantoprazole Sodium 40 MG Tablet PO (21:23)
[2024-10-03] MEDS: Acetaminophen 500 MG Tablet 1000 MG PO (21:24)
[2024-10-03] MEDS: Senna/Docusate Sodium 1 Tablet 2 TABLET PO (21:24)
[2024-10-03] MEDS: 0.9% Saline Lock 10 ML Syringe IV (21:35)
[2024-10-04] MEDS: oxyCODONE 5 MG Tablet PO ×4 (04:40→21:55)
[2024-10-04] MEDS: Levothyroxine 75 MCG Tablet PO (05:50)
[2024-10-04] MEDS: Acetaminophen 500 MG Tablet 1000 MG PO ×3 (05:50→21:54)
[2024-10-04 05:56] LABS: Absolute Lymphocyte Count 1.44 X10^3/uL (0.83-4.51); Absolute Neutrophil Count 3.9 X10^3/uL (2.0-7.7); Basophil# 0.06 X10^3/uL; Basophil% 0.9 % (0-1); Eosinophil# 0.27 X10^3/uL; Eosinophils% 4.2 % (0-5); Hematocrit 27.7 % (37-47); Lymphocyte # 1.44 X10^3/ul (0.83-4.51); Lymphocyte % 22.4 % (19-41); Mean Corp Hgb Conc 32.5 g/dL (32-36); Mean Corpuscular Hgb 31.1 pg (27.0-32.0); Mean Corpuscular Volume 95.8 fL (81-99); Monocyte% 10.9 % (0-10); NRBC Flagged by Analyzer 0 % (0-5); Neutrophil # 3.87 X10^3/uL (2.7-7.7); Neutrophil % 60.2 % (47-70); Platelet Count 297 K/mm3 (150-450); RBC Distribution Width CV 13.8 % (11.6-14.6); RBC Distribution Width SD 48.1 fl (35.1-43.9); Red Blood Count 2.89 M/mm3 (4.2-5.4); White Blood Count 6.4 K/mm3 (4.4-11.0)
[2024-10-04 06:18] LABS: Anion Gap 4 (5-15); BUN 18 mg/dL (7-18); BUN/Creat Ratio 22.8 RATIO (10-20); Calcium,Total 8.5 mg/dL (8.5-10.1); Chloride 107 mmol/L (98-107); Creatinine, Serum 0.79 mg/dL (0.55-1.02); EST Glomerular Filtration Rate 74 mL/min (>60); Est Glom Filt Rate - Afr Amer 90 mL/min (>60); Estimated Creatinine Clearance 58.09 ml/min; Glucose 98 mg/dL (74-106); Potassium 4.2 mmol/L (3.5-5.1); Sodium Level 139 mmol/L (136-145)
[2024-10-04] MEDS: Folic Acid 1 MG Tablet PO (08:16)
[2024-10-04] MEDS: Loratadine 10 MG Tablet PO (08:17)
[2024-10-04] MEDS: Citalopram 20 MG Tablet PO (08:17)
[2024-10-04] MEDS: APIXABAN 2.5 MG TABLET (WCH) PO ×2 (08:17→21:54)
[2024-10-04] MEDS: Fluticasone/Salmeterol 232-14 Inhaler 1 PUFF INHALATION ×2 (08:18→21:55)
[2024-10-04] MEDS: Umeclidinium Bromide Inhaler 1 PUFF INHALATION (08:18)
[2024-10-04] MEDS: Senna/Docusate Sodium 1 Tablet 2 TABLET PO ×2 (08:19→21:54)
[2024-10-04] MEDS: Polyethylene Glycol 3350 17 GM PACKET PO (08:19)
[2024-10-04 08:21] VITALS: BP 103/55; PULSE 94
[2024-10-04] MEDS: Metoprolol Tartrate 25 MG Tablet 12.5 MG PO ×2 (08:21→21:51)
[2024-10-04] MEDS: Tuberculin,Purif.prot.deriv. 50 TU/ML Vial 0.1 ML ID (09:28)
[2024-10-04] MEDS: 0.9% Saline Lock 10 ML Syringe IV (09:28)
--- NOTE | 2024-10-04 10:11 | NURSING ---
Surgical dressing removed from left hip. Incision is well approximated with no redness or drainage. Incision left open to air.
[2024-10-04] MEDS: Ferrous Sulfate 325 MG Tablet PO (13:42)
[2024-10-04] MEDS: Ciprofloxacin 250 MG Tablet PO ×2 (15:55→21:55)
[2024-10-04 16:00] VITALS: BP 141/76; PULSE 96; RESP 17; TEMP 36.9; O2SAT 93
--- NOTE | 2024-10-04 16:21 | NURSING ---
Urine tested on acute side and urine sensitivity arrives today. Dr. Knott made aware of results and NO for Cipro. Patient made aware and ATB therapy initiated.
[2024-10-04 21:51] VITALS: BP 139/76; PULSE 115
[2024-10-04] MEDS: Baclofen 10 MG Tablet PO (21:55)
[2024-10-04] MEDS: Pantoprazole Sodium 40 MG Tablet PO (21:55)
[2024-10-04 21:57] VITALS: BP 139/76; PULSE 115
[2024-10-05] MEDS: Acetaminophen 500 MG Tablet 1000 MG PO ×3 (05:08→20:57)
[2024-10-05] MEDS: oxyCODONE 5 MG Tablet PO ×3 (05:08→20:56)
[2024-10-05] MEDS: Levothyroxine 75 MCG Tablet PO (05:08)
[2024-10-05 05:12] VITALS: PULSE 90; RESP 18
[2024-10-05] MEDS: Folic Acid 1 MG Tablet PO (08:57)
[2024-10-05] MEDS: Citalopram 20 MG Tablet PO (08:59)
[2024-10-05] MEDS: Ciprofloxacin 250 MG Tablet PO ×2 (09:00→20:58)
[2024-10-05] MEDS: Loratadine 10 MG Tablet PO (09:00)
[2024-10-05] MEDS: APIXABAN 2.5 MG TABLET (WCH) PO ×2 (09:00→20:58)
[2024-10-05] MEDS: Fluticasone/Salmeterol 232-14 Inhaler 1 PUFF INHALATION ×2 (09:01→20:57)
[2024-10-05] MEDS: Umeclidinium Bromide Inhaler 1 PUFF INHALATION (09:01)
[2024-10-05 09:02] VITALS: BP 103/71; PULSE 106
[2024-10-05] MEDS: Metoprolol Tartrate 25 MG Tablet 12.5 MG PO ×2 (09:02→20:59)
[2024-10-05] MEDS: Polyethylene Glycol 3350 17 GM PACKET PO (09:02)
[2024-10-05] MEDS: Senna/Docusate Sodium 1 Tablet 2 TABLET PO ×2 (09:03→20:57)
[2024-10-05 09:10] VITALS: BP 103/71; PULSE 106; RESP 18; O2SAT 92
[2024-10-05] MEDS: Ferrous Sulfate 325 MG Tablet PO (11:16)
[2024-10-05 16:00] VITALS: TEMP 36.5
[2024-10-05] MEDS: Baclofen 10 MG Tablet PO (20:57)
[2024-10-05] MEDS: Pantoprazole Sodium 40 MG Tablet PO (20:57)
[2024-10-05 20:59] VITALS: BP 130/75; PULSE 109
[2024-10-05 21:04] VITALS: BP 130/75; PULSE 109
[2024-10-06 04:54] LABS: Hematocrit 29.6 % (37-47)
[2024-10-06] MEDS: Levothyroxine 75 MCG Tablet PO (05:31)
[2024-10-06] MEDS: Acetaminophen 500 MG Tablet 1000 MG PO ×3 (05:35→20:30)
[2024-10-06] MEDS: oxyCODONE 5 MG Tablet PO ×3 (05:36→20:35)
[2024-10-06] MEDS: Folic Acid 1 MG Tablet PO (08:20)
[2024-10-06] MEDS: APIXABAN 2.5 MG TABLET (WCH) PO ×2 (08:21→20:26)
[2024-10-06] MEDS: Ciprofloxacin 250 MG Tablet PO ×2 (08:21→20:26)
[2024-10-06] MEDS: Citalopram 20 MG Tablet PO (08:21)
[2024-10-06] MEDS: Loratadine 10 MG Tablet PO (08:21)
[2024-10-06] MEDS: Senna/Docusate Sodium 1 Tablet 2 TABLET PO ×2 (08:22→20:34)
[2024-10-06] MEDS: Umeclidinium Bromide Inhaler 1 PUFF INHALATION (08:22)
[2024-10-06] MEDS: Fluticasone/Salmeterol 232-14 Inhaler 1 PUFF INHALATION ×2 (08:22→20:27)
[2024-10-06] MEDS: Polyethylene Glycol 3350 17 GM PACKET PO (08:28)
[2024-10-06] MEDS: Iron Polysaccharide Complex 150 MG CAPSULE PO (08:28)
[2024-10-06 08:30] VITALS: BP 123/71; PULSE 104
[2024-10-06] MEDS: Metoprolol Tartrate 25 MG Tablet 12.5 MG PO ×2 (08:30→20:29)
[2024-10-06] MEDS: Ascorbic Acid 500 MG Tablet PO (08:34)
--- NOTE | 2024-10-06 10:20 | NURSING ---
Entry Tech Note; Activity Asset: Milton Archibald has returned to TCU for therapy and remains independent in her choice of independent activities. When at home she quilts and sews. She will watch tv, read visit with family, welcomes visits w/vocational technical education teacher and therapy dog when available. Staff will encourage social activities, reminded her of weekly activities and respect her right to say no.
--- NOTE | 2024-10-06 10:22 | NURSING ---
Offered covid vaccine, VIS provided. Resident declines at this time.
--- NOTE | 2024-10-06 10:29 | PHA.CONS_ITS ---
Documented by User: Milagros Castillo 10/06/24 10:47 TCU RX Drug Regimen Review Subjective/Objective Subjective/Objective Subjective: TCU Admission. 83 YOF underwent left total hip replacement 09/29/[address] Pennington, postoperative course complicated by orthostatic hypotension. Admitted to TCU with debility for strengthening and rehabilitation. Objective: Allergies Penicillins Allergy (Severe, Verified 09/29/24 05:54) facial swelling latex Allergy (Intermediate, Verified 09/29/24 05:54) itch and burn Current Medications Generic Name Dose Route Start Last Admin Trade Name Freq PRN Reason Stop Dose Admin Acetaminophen 1,000 mg 10/03/24 22:00 10/06/24 05:35 Acetaminophen 500 Mg Tablet PO 1,000 mg TID WHIT Administration Apixaban 2.5 mg 10/03/24 22:00 10/06/24 08:21 Apixaban 2.5 Mg Tablet (Wch) PO 10/13/24 22:01 2.5 mg BID WHIT Administration Ascorbic Acid 500 mg 10/06/24 10:00 10/06/24 08:34 Ascorbic Acid 500 Mg Tablet PO 500 mg BREAKFAST WHIT Administration Aspirin 81 mg 10/14/24 08:00 Aspirin E.C. 81 Mg Tablet PO 11/11/24 08:01 BIDCM WHIT Baclofen 10 mg 10/03/24 22:00 10/05/24 20:57 Baclofen 10 Mg Tablet PO 10 mg QHS WHIT Administration Ciprofloxacin HCl 250 mg 10/04/24 15:17 10/06/24 08:21 Ciprofloxacin 250 Mg Tablet PO 10/10/24 22:01 250 mg BID WHIT Administration Citalopram Hydrobromide 20 mg 10/04/24 10:00 10/06/24 08:21 Citalopram 20 Mg Tablet PO 20 mg DAILY WHIT Administration Folic Acid 1 mg 10/04/24 08:00 10/06/24 08:20 Folic Acid 1 Mg Tablet PO 1 mg BREAKFAST WHIT Administration Levothyroxine Sodium 75 mcg 10/04/24 06:00 10/06/24 05:31 Levothyroxine 75 Mcg Tablet PO 75 mcg DAILY@0600 WHIT Administration Loratadine 10 mg 10/04/24 10:00 10/06/24 08:21 Loratadine 10 Mg Tablet PO 10 mg DAILY WHIT Administration Metoprolol Tartrate 12.5 mg 10/03/24 22:00 10/06/24 08:30 Metoprolol Tartrate 25 Mg Tablet PO 12.5 mg BID WHIT Administration Protocol Oxycodone HCl 5 - 10 mg 10/03/24 16:48 10/06/24 05:36 Oxycodone 5 Mg Tablet PO 10 mg Q4H PRN PRN Administration Pain Score 5-10 Pantoprazole Sodium 40 mg 10/03/24 22:00 10/05/24 20:57 Pantoprazole Sodium 40 Mg Tablet PO 40 mg QHS WHIT Administration Polyethylene Glycol 17 gm 10/04/24 10:00 10/06/24 08:28 Polyethylene Glycol 3350 17 Gm Packet PO 17 gm DAILY WHIT Administration Polysaccharide Iron Complex 150 mg 10/06/24 10:00 10/06/24 08:28 Iron Polysaccharide Complex 150 Mg Capsule PO 150 mg DAILY WHIT Administration Fluticasone/Salmeterol 1 puff 10/03/24 22:00 10/06/24 08:22 Fluticasone/Salmeterol 232-14 Inhaler INHALATION 1 puff Q12 WHIT Administration Senna/Docusate Sodium 2 tablet 10/03/24 22:00 10/06/24 08:22 Senna/Docusate Sodium 1 Tablet PO 2 tablet BID WHIT Administration Sodium Chloride 10 - 40 ml 10/03/24 21:34 10/04/24 09:28 0.9% Saline Lock 10 Ml Syringe IV 10 ml UD PRN Administration SALINE FLUSH Tuberculin PPD 0.1 ml 10/11/24 10:00 Tuberculin,Purif.Prot.Deriv. 50 Tu/Ml Vial ID 10/11/24 10:01 X1 ONE Umeclidinium [place] 1 puff 10/04/24 10:00 10/06/24 08:22 Umeclidinium [place] Inhaler INHALATION 1 puff DAILY WHIT Administration Problem List Atrial fibrillation (Acute) Low back pain (Acute) Insomnia (Acute) Depression (Acute) Obstructive sleep apnea (Acute) GERD (gastroesophageal reflux disease) (Acute) Status post left hip replacement (Acute) COPD (chronic obstructive pulmonary disease) (Chronic) Essential (primary) hypertension (Acute) Debility (Acute) Hypothyroidism (Chronic) Hx of deep venous thrombosis (Acute) Vital Signs Temp Pulse Resp BP Pulse Ox O2 Del Method 97.7 F L 104 H 18 123/71 H 92 Room Air 10/05/24 16:00 10/06/24 08:30 10/05/24 09:10 10/06/24 08:30 10/05/24 09:10 10/05/24 09:10 Oxygen Delivery Method Room Air Weight: 91.6 kg Body Mass Index (BMI) 36.9 Sodium 139 mmol/L (136-145) 10/04/24 05:10 Potassium 4.2 mmol/L (3.5-5.1) 10/04/24 05:10 Chloride 107 mmol/L (98-107) 10/04/24 05:10 Carbon Dioxide 28.0 mmol/L (21.0-32.0) 10/04/24 05:10 Anion Gap 4 (5-15) L 10/04/24 05:10 BUN 18 mg/dL (7-18) 10/04/24 05:10 Creatinine 0.79 mg/dL (0.55-1.02) 10/04/24 05:10 Est GFR (MDRD) Af Amer 90 mL/min (>60) 10/04/24 05:10 Est GFR (MDRD) Non-Af 74 mL/min (>60) 10/04/24 05:10 BUN/Creatinine Ratio 22.8 RATIO (10-20) H 10/04/24 05:10 Glucose 98 mg/dL (74-106) 10/04/24 05:10 Assessment/Plan: 1. Pain: acetaminophen 1000mg PO TID and oxycodone 5-10mg PO Q4H PRN pain 5-10. Resident has had 8 doses of oxycodone for pain scores of 7-9 in the hip/left leg. Please continue to monitor for increased pain, PRN usage, constipation, respiratory depression and falls (BEERs). 2. Bowel: senna/docusate 2T PO BID and Miralax 17gm PO daily. Please continue to monitor for constipation/diarrhea. Last documented bowel movement was 10/05. 3. DVT prophylaxis: apixaban 2.5mg PO BID thru 10/13/24, then aspirin 81mg PO BID thru 11/11/24. Please continue to monitor for S/S of bleeding/DVT, hemoglobin (last 9g/dL). 4. Iron deficiency anemia: Ferrex 150mg PO daily and ascorbic acid 500mg PO breakfast. Please continue to monitor hemoglobin, dark stools, constipation. H&H ordered for 10/08. 5. Muscle spasm: baclofen 10mg PO QHS. Please continue to monitor for hypotonia, dizziness and drowsiness. 6. COPD: fluticasone/salmeterol 232/14mcg inhalation 1 puff Q12 and umeclidinium 1 puff daily. Please continue to monitor HR (last 104), S/S of thrush, SOB. Please rinse mouth with water and spit following fluticasone/salmeterol administration to prevent thrush. 7. Hypothyroidism: levothyroxine 75mcg PO daily. Please continue to monitor TSH (last 09/04/24) and S/S of hypo/hyperthyroidism. 8. Hypertension: metoprolol tartrate 12.5mg PO BID. Please continue to monitor HR, BP (last 123/71). 9. GERD: pantoprazole 40mg PO QHS. Please continue to monitor for S/S of GERD and diarrhea (BEERs). 10. Allergic rhinitis: loratadine 10mg PO daily. Please continue to monitor for S/S of allergies and renal function. 11. Folate deficiency: folic acid 1mg PO daily. Please continue to monitor. 12. Klebsiella/pseudomonas UTI: ciprofloxacin 250mg PO BID thru 10/10/24. Please continue to monitor for S/S of infection, renal function, diarrhea, joint pain. Assessment/Plan for indications treated with psychotropic medications: 1. Depression: citalopram 20mg PO daily. Please see physician note regarding GDR. Please continue to monitor for suicidal ideation (black box warning), sodium (last 139mmol/L), and falls/fractures (BEERs). Medical chart and medication regimen reviewed. The following medication irregularities or issues were identified: None Date Date of Note: 10/06/24 Documented by User: Dr. Rancho Knott MD 10/06/24 13:06 TCU RX Drug Regimen Review Provider Comments Provider responsibility Provider Comments to Recommendations by Pharmacy Agree
[2024-10-06 15:12] VITALS: BP 123/71; PULSE 102; RESP 20; TEMP 36.8; O2SAT 92
--- NOTE | 2024-10-06 15:30 | CHAPLAIN ---
Type of Pastoral Visit _x__ Initial Visit ___ Follow-up Visit ___ On-call Visit ___ General Patient Visit ___ Spiritual Assessment ___ Family Conference ___ Bereavement ___ Rapid Response ___ Code Blue ___ Other (describe below) Pastoral Care Referral From _x__ Patient ___ Family ___ Nurse ___ Physician ___ Registered Travel Nurse ___ Inspector Outside [employer] Distribution ___ Other (describe below) Sacrament/Intervention _x__ Active listening ___ Anointing ___ Muslim ___ Bereavement ___ Communion ___ Jyoti exploration ___ _x__ Life review _x__ Prayer ___ Reconciliation ___ Sacrament of Sick ___ Supportive presence ___ Wedding ___ Other (describe below) Pastoral Comments patient expresses encouragement at having a good day with good therapy where people are very kind; pt states that I probably shouldn't have waited so long to do this; pt has family close by and a restorationism connection that is helpful to her; pt welcomes presence and prayer; pt has no other needs at this time
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
[2024-10-06 20:00] VITALS: PULSE 96; O2SAT 95
[2024-10-06 20:25] VITALS: BP 151/68; PULSE 96
[2024-10-06] MEDS: Baclofen 10 MG Tablet PO (20:28)
[2024-10-06 20:29] VITALS: BP 151/68; PULSE 96
[2024-10-06] MEDS: Pantoprazole Sodium 40 MG Tablet PO (20:29)
[2024-10-07] MEDS: oxyCODONE 5 MG Tablet PO ×3 (03:13→19:02)
[2024-10-07] MEDS: Levothyroxine 75 MCG Tablet PO (05:21)
[2024-10-07] MEDS: Acetaminophen 500 MG Tablet 1000 MG PO ×3 (05:21→21:30)
[2024-10-07 06:36] VITALS: PULSE 86; O2SAT 94
[2024-10-07 09:00] VITALS: BP 131/78; PULSE 94; RESP 20; TEMP 36.9; O2SAT 96
[2024-10-07] MEDS: Folic Acid 1 MG Tablet PO (09:56)
[2024-10-07] MEDS: Ciprofloxacin 250 MG Tablet PO ×2 (09:57→21:31)
[2024-10-07] MEDS: Loratadine 10 MG Tablet PO (09:57)
[2024-10-07] MEDS: Citalopram 20 MG Tablet PO (09:57)
[2024-10-07] MEDS: Ascorbic Acid 500 MG Tablet PO (09:57)
[2024-10-07] MEDS: Iron Polysaccharide Complex 150 MG CAPSULE PO (09:57)
[2024-10-07] MEDS: APIXABAN 2.5 MG TABLET (WCH) PO ×2 (09:57→21:31)
[2024-10-07] MEDS: Fluticasone/Salmeterol 232-14 Inhaler 1 PUFF INHALATION ×2 (09:58→21:31)
[2024-10-07] MEDS: Umeclidinium Bromide Inhaler 1 PUFF INHALATION (09:58)
[2024-10-07] MEDS: Polyethylene Glycol 3350 17 GM PACKET PO (09:59)
[2024-10-07] MEDS: Senna/Docusate Sodium 1 Tablet 2 TABLET PO (09:59)
[2024-10-07 10:04] VITALS: BP 131/78; PULSE 94
[2024-10-07] MEDS: Metoprolol Tartrate 25 MG Tablet 12.5 MG PO ×2 (10:04→21:30)
[2024-10-07 15:38] VITALS: BMI 36.3
[2024-10-07 21:30] VITALS: BP 152/77; PULSE 100
[2024-10-07] MEDS: Pantoprazole Sodium 40 MG Tablet PO (21:31)
[2024-10-07] MEDS: Baclofen 10 MG Tablet PO (21:31)
[2024-10-08] MEDS: oxyCODONE 5 MG Tablet PO ×5 (01:11→23:22)
[2024-10-08] MEDS: Acetaminophen 500 MG Tablet 1000 MG PO ×3 (05:36→22:05)
[2024-10-08] MEDS: Levothyroxine 75 MCG Tablet PO (05:36)
[2024-10-08 05:52] LABS: Hematocrit 29.4 % (37-47); Hemoglobin 9.5 g/dL (12.0-15.0)
[2024-10-08 08:27] VITALS: BP 113/65; PULSE 96; RESP 16; TEMP 36.9; O2SAT 94
[2024-10-08] MEDS: Folic Acid 1 MG Tablet PO (08:28)
[2024-10-08] MEDS: Ascorbic Acid 500 MG Tablet PO (08:28)
[2024-10-08 08:29] VITALS: PULSE 96
[2024-10-08] MEDS: Metoprolol Tartrate 25 MG Tablet 12.5 MG PO ×2 (08:29→22:08)
[2024-10-08] MEDS: Loratadine 10 MG Tablet PO (08:29)
[2024-10-08] MEDS: APIXABAN 2.5 MG TABLET (WCH) PO ×2 (08:29→22:02)
[2024-10-08] MEDS: Ciprofloxacin 250 MG Tablet PO ×2 (08:29→22:02)
[2024-10-08] MEDS: Iron Polysaccharide Complex 150 MG CAPSULE PO (08:29)
[2024-10-08] MEDS: Citalopram 20 MG Tablet PO (08:29)
[2024-10-08] MEDS: Fluticasone/Salmeterol 232-14 Inhaler 1 PUFF INHALATION ×2 (08:30→22:02)
[2024-10-08] MEDS: Umeclidinium Bromide Inhaler 1 PUFF INHALATION (08:30)
--- NOTE | 2024-10-08 10:09 | CASEMGMT ---
Social Work IDT met with patient, dtr and gdtr for care plan meeting. Discussed patient's progress in PT/OT/SN. Educated to [facility] insurance with NRD 3/4 and continued stay is not guaranteed with each review. Provided pt with written communication on insurance process and copay coverage during stay. Pt and family expressed no concerns with homegoing. SW inquired about copies of updated advance directives. gdtr to locate copies and provide them. SW will continue to follow for DC planning. Alicia Carrillo DISTRICT WILDLIFE MANAGER GYPSUM ROOFER
--- NOTE | 2024-10-08 10:31 | MDS.RN ---
resident c/o difficulty sleeping at night. Written communication for Dr. Knott.
[2024-10-08] MEDS: Menthol/Lanolin/Calamine/Znox 113 GM Tube 1 APPLIC TOPICAL ×2 (17:43→22:01)
[2024-10-08 18:34] VITALS: PULSE 90; RESP 18; O2SAT 97
[2024-10-08] MEDS: Baclofen 10 MG Tablet PO (22:04)
[2024-10-08] MEDS: MELATONIN 3 MG TABLET PO (22:04)
[2024-10-08] MEDS: Pantoprazole Sodium 40 MG Tablet PO (22:04)
[2024-10-08 22:08] VITALS: BP 126/72; PULSE 98
[2024-10-08] MEDS: Senna/Docusate Sodium 1 Tablet 2 TABLET PO (22:11)
[2024-10-08 22:14] VITALS: BP 126/72; PULSE 98
[2024-10-09] MEDS: Acetaminophen 500 MG Tablet 1000 MG PO ×3 (05:07→22:22)
[2024-10-09] MEDS: Levothyroxine 75 MCG Tablet PO (05:07)
[2024-10-09 05:33] VITALS: PULSE 84; O2SAT 95
[2024-10-09 08:39] VITALS: BP 101/58; PULSE 94; RESP 16; TEMP 36.3; O2SAT 94
[2024-10-09 08:43] VITALS: PULSE 94
[2024-10-09] MEDS: Iron Polysaccharide Complex 150 MG CAPSULE PO (08:43)
[2024-10-09] MEDS: Fluticasone/Salmeterol 232-14 Inhaler 1 PUFF INHALATION ×2 (08:43→22:23)
[2024-10-09] MEDS: Folic Acid 1 MG Tablet PO (08:43)
[2024-10-09] MEDS: Metoprolol Tartrate 25 MG Tablet 12.5 MG PO ×2 (08:43→22:24)
[2024-10-09] MEDS: Ascorbic Acid 500 MG Tablet PO (08:43)
[2024-10-09] MEDS: Umeclidinium Bromide Inhaler 1 PUFF INHALATION (08:43)
[2024-10-09] MEDS: Citalopram 20 MG Tablet PO (08:43)
[2024-10-09] MEDS: APIXABAN 2.5 MG TABLET (WCH) PO ×2 (08:43→22:22)
[2024-10-09] MEDS: Loratadine 10 MG Tablet PO (08:43)
[2024-10-09] MEDS: Ciprofloxacin 250 MG Tablet PO ×2 (08:43→22:22)
[2024-10-09] MEDS: Menthol/Lanolin/Calamine/Znox 113 GM Tube 1 APPLIC TOPICAL ×2 (08:45→22:23)
[2024-10-09] MEDS: oxyCODONE 5 MG Tablet PO ×2 (08:50→22:21)
[2024-10-09] MEDS: Senna/Docusate Sodium 1 Tablet 2 TABLET PO (08:52)
--- NOTE | 2024-10-09 15:57 | CASEMGMT ---
Social Work SW completed BIMS () and PHQ-2 () for MDS assessment. Alicia Carrillo SHARED SERVICES MANAGER CDL BULK DRIVER
[2024-10-09] MEDS: MELATONIN 3 MG TABLET PO (22:21)
[2024-10-09] MEDS: Baclofen 10 MG Tablet PO (22:21)
[2024-10-09] MEDS: Pantoprazole Sodium 40 MG Tablet PO (22:22)
[2024-10-09 22:24] VITALS: BP 142/72; PULSE 96
[2024-10-09 22:28] VITALS: BP 142/72; PULSE 96
[2024-10-10] MEDS: Acetaminophen 500 MG Tablet 1000 MG PO ×3 (05:10→20:49)
[2024-10-10] MEDS: Levothyroxine 75 MCG Tablet PO (05:10)
[2024-10-10 06:03] LABS: Absolute Lymphocyte Count 2.18 X10^3/uL (0.83-4.51); Absolute Neutrophil Count 3.9 X10^3/uL (2.0-7.7); Basophil# 0.07 X10^3/uL; Eosinophil# 0.15 X10^3/uL; Eosinophils% 2.1 % (0-5); Hematocrit 31.9 % (37-47); Hemoglobin 9.9 g/dL (12.0-15.0); Lymphocyte # 2.18 X10^3/ul (0.83-4.51); Lymphocyte % 31.1 % (19-41); Mean Corpuscular Hgb 30.6 pg (27.0-32.0); Mean Corpuscular Volume 98.5 fL (81-99); Monocyte# 0.54 X10^3/uL; Monocyte% 7.7 % (0-10); NRBC Flagged by Analyzer 0 % (0-5); Neutrophil # 3.89 X10^3/uL (2.7-7.7); Neutrophil % 55.4 % (47-70); Platelet Count 520 K/mm3 (150-450); RBC Distribution Width CV 14.4 % (11.6-14.6); RBC Distribution Width SD 51.3 fl (35.1-43.9); Red Blood Count 3.24 M/mm3 (4.2-5.4)
[2024-10-10 07:36] VITALS: BP 121/92; PULSE 82; RESP 16; TEMP 37; O2SAT 98
[2024-10-10] MEDS: Folic Acid 1 MG Tablet PO (08:10)
[2024-10-10] MEDS: Ciprofloxacin 250 MG Tablet PO ×2 (08:11→20:51)
[2024-10-10] MEDS: Polyethylene Glycol 3350 17 GM PACKET PO (08:11)
[2024-10-10] MEDS: Iron Polysaccharide Complex 150 MG CAPSULE PO (08:11)
[2024-10-10] MEDS: APIXABAN 2.5 MG TABLET (WCH) PO ×2 (08:11→20:51)
[2024-10-10] MEDS: Ascorbic Acid 500 MG Tablet PO (08:11)
[2024-10-10] MEDS: Citalopram 20 MG Tablet PO (08:11)
[2024-10-10] MEDS: Loratadine 10 MG Tablet PO (08:11)
[2024-10-10 08:12] VITALS: BP 121/92; PULSE 82
[2024-10-10] MEDS: Metoprolol Tartrate 25 MG Tablet 12.5 MG PO ×2 (08:12→20:50)
[2024-10-10] MEDS: Fluticasone/Salmeterol 232-14 Inhaler 1 PUFF INHALATION ×2 (08:13→20:52)
[2024-10-10] MEDS: Umeclidinium Bromide Inhaler 1 PUFF INHALATION (08:13)
[2024-10-10] MEDS: Menthol/Lanolin/Calamine/Znox 113 GM Tube 1 APPLIC TOPICAL ×2 (08:13→20:55)
[2024-10-10] MEDS: oxyCODONE 5 MG Tablet PO ×3 (08:15→20:48)
[2024-10-10 09:24] LABS: Anion Gap 13 (5-15); BUN 19 mg/dL (4-19); BUN/Creat Ratio 17.7 RATIO (10-20); Calcium 9.2 mg/dL (7.6-11.0); Carbon Dioxide 25.5 mmol/L (22.0-29.0); Chloride 100 mmol/L (96-108); Creatinine, Serum 1.06 mg/dL (0.70-1.20); EST Glomerular Filtration Rate 53 (>60); Estimated Creatinine Clearance 43.48 ml/min; Glucose 96 mg/dL (70-99); Potassium 4.7 mmol/L (3.3-5.1); Sodium Level 138 mmol/L (133-145)
[2024-10-10 09:52] VITALS: PULSE 82; RESP 16; O2SAT 98
[2024-10-10] MEDS: Pantoprazole Sodium 40 MG Tablet PO (20:49)
[2024-10-10 20:50] VITALS: BP 117/56; PULSE 99
[2024-10-10] MEDS: Baclofen 10 MG Tablet PO (20:50)
[2024-10-10] MEDS: MELATONIN 3 MG TABLET PO (20:51)
[2024-10-10 21:00] VITALS: BP 117/56; PULSE 99
[2024-10-11 03:44] VITALS: RESP 16
[2024-10-11] MEDS: Levothyroxine 75 MCG Tablet PO (05:47)
[2024-10-11] MEDS: Acetaminophen 500 MG Tablet 1000 MG PO ×3 (05:47→21:43)
[2024-10-11 09:19] VITALS: BP 116/61; PULSE 91; RESP 18; O2SAT 93
[2024-10-11] MEDS: Umeclidinium Bromide Inhaler 1 PUFF INHALATION (09:21)
[2024-10-11 09:22] VITALS: PULSE 91
[2024-10-11] MEDS: Metoprolol Tartrate 25 MG Tablet 12.5 MG PO ×2 (09:22→21:46)
[2024-10-11] MEDS: APIXABAN 2.5 MG TABLET (WCH) PO ×2 (09:22→21:46)
[2024-10-11] MEDS: Loratadine 10 MG Tablet PO (09:22)
[2024-10-11] MEDS: Folic Acid 1 MG Tablet PO (09:22)
[2024-10-11] MEDS: Ascorbic Acid 500 MG Tablet PO (09:23)
[2024-10-11] MEDS: Citalopram 20 MG Tablet PO (09:23)
[2024-10-11] MEDS: Fluticasone/Salmeterol 232-14 Inhaler 1 PUFF INHALATION ×2 (09:24→21:42)
[2024-10-11] MEDS: Iron Polysaccharide Complex 150 MG CAPSULE PO (09:24)
[2024-10-11] MEDS: Menthol/Lanolin/Calamine/Znox 113 GM Tube 1 APPLIC TOPICAL ×2 (09:28→21:48)
[2024-10-11] MEDS: Tuberculin,Purif.prot.deriv. 50 TU/ML Vial 0.1 ML ID (10:35)
[2024-10-11] MEDS: oxyCODONE 5 MG Tablet PO ×2 (10:39→22:40)
[2024-10-11 14:05] VITALS: TEMP 36.9
[2024-10-11 21:39] VITALS: BP 111/57; PULSE 91
[2024-10-11] MEDS: Pantoprazole Sodium 40 MG Tablet PO (21:45)
[2024-10-11] MEDS: MELATONIN 3 MG TABLET PO (21:45)
[2024-10-11 21:46] VITALS: BP 111/57; PULSE 91
[2024-10-11] MEDS: Baclofen 10 MG Tablet PO (21:46)
[2024-10-12] MEDS: Acetaminophen 500 MG Tablet 1000 MG PO ×3 (05:14→22:33)
[2024-10-12] MEDS: Levothyroxine 75 MCG Tablet PO (05:14)
[2024-10-12] MEDS: Loratadine 10 MG Tablet PO (08:43)
[2024-10-12] MEDS: Citalopram 20 MG Tablet PO (08:43)
[2024-10-12] MEDS: Ascorbic Acid 500 MG Tablet PO (08:43)
[2024-10-12] MEDS: Folic Acid 1 MG Tablet PO (08:43)
[2024-10-12] MEDS: APIXABAN 2.5 MG TABLET (WCH) PO ×2 (08:44→22:31)
[2024-10-12] MEDS: Iron Polysaccharide Complex 150 MG CAPSULE PO (08:44)
[2024-10-12] MEDS: Umeclidinium Bromide Inhaler 1 PUFF INHALATION (08:44)
[2024-10-12] MEDS: Fluticasone/Salmeterol 232-14 Inhaler 1 PUFF INHALATION ×2 (08:44→22:30)
[2024-10-12 08:45] VITALS: BP 112/60; PULSE 83
[2024-10-12] MEDS: Metoprolol Tartrate 25 MG Tablet 12.5 MG PO ×2 (08:45→22:31)
[2024-10-12] MEDS: Polyethylene Glycol 3350 17 GM PACKET PO (08:46)
[2024-10-12] MEDS: Menthol/Lanolin/Calamine/Znox 113 GM Tube 1 APPLIC TOPICAL ×2 (08:48→22:29)
[2024-10-12 10:00] VITALS: BP 112/60; PULSE 83; RESP 20; TEMP 36.7; O2SAT 98
[2024-10-12] MEDS: oxyCODONE 5 MG Tablet PO ×2 (13:47→22:37)
[2024-10-12 20:00] VITALS: PULSE 86; O2SAT 96
[2024-10-12 22:28] VITALS: BP 131/58; PULSE 89
[2024-10-12 22:31] VITALS: BP 131/58; PULSE 89
[2024-10-12] MEDS: Baclofen 10 MG Tablet PO (22:33)
[2024-10-12] MEDS: MELATONIN 3 MG TABLET PO (22:33)
[2024-10-12] MEDS: Pantoprazole Sodium 40 MG Tablet PO (22:33)
[2024-10-13] MEDS: Levothyroxine 75 MCG Tablet PO (05:23)
[2024-10-13] MEDS: Acetaminophen 500 MG Tablet 1000 MG PO ×3 (05:23→20:01)
[2024-10-13 06:50] VITALS: PULSE 78; O2SAT 94
[2024-10-13] MEDS: Citalopram 20 MG Tablet PO (08:16)
[2024-10-13] MEDS: Iron Polysaccharide Complex 150 MG CAPSULE PO (08:16)
[2024-10-13] MEDS: Ascorbic Acid 500 MG Tablet PO (08:16)
[2024-10-13] MEDS: Fluticasone/Salmeterol 232-14 Inhaler 1 PUFF INHALATION ×2 (08:16→20:00)
[2024-10-13] MEDS: APIXABAN 2.5 MG TABLET (WCH) PO ×2 (08:16→20:00)
[2024-10-13] MEDS: Folic Acid 1 MG Tablet PO (08:16)
[2024-10-13] MEDS: Loratadine 10 MG Tablet PO (08:16)
[2024-10-13 08:17] VITALS: BP 123/61; PULSE 83
[2024-10-13] MEDS: Metoprolol Tartrate 25 MG Tablet 12.5 MG PO ×2 (08:17→20:00)
[2024-10-13] MEDS: Umeclidinium Bromide Inhaler 1 PUFF INHALATION (08:17)
[2024-10-13] MEDS: Polyethylene Glycol 3350 17 GM PACKET PO (08:18)
[2024-10-13] MEDS: Menthol/Lanolin/Calamine/Znox 113 GM Tube 1 APPLIC TOPICAL ×2 (08:22→22:49)
[2024-10-13] MEDS: oxyCODONE 5 MG Tablet PO ×2 (10:11→19:58)
[2024-10-13 11:29] VITALS: BP 123/61; PULSE 84; RESP 20; TEMP 37; O2SAT 96
--- NOTE | 2024-10-13 12:07 | NURSING ---
Correctional Program Specialist Note; MDS for 10/11/2024 Complete
--- NOTE | 2024-10-13 17:04 | NURSING ---
Returns from f/u with Dr. Pennington at this time. To f/u in 4 weeks and have daily dressing change to proximal hip incision for 2 weeks to protect from panus rubbing. Oxycodone changed to q6h PRN.
[2024-10-13 20:00] VITALS: BP 124/69; PULSE 92
[2024-10-13] MEDS: Pantoprazole Sodium 40 MG Tablet PO (20:00)
[2024-10-13] MEDS: Baclofen 10 MG Tablet PO ×2 (20:00→22:28)
[2024-10-13] MEDS: MELATONIN 3 MG TABLET PO (20:00)
[2024-10-13 20:05] VITALS: BP 124/69; PULSE 92
[2024-10-14] MEDS: Acetaminophen 500 MG Tablet 1000 MG PO ×3 (05:36→21:00)
[2024-10-14] MEDS: Levothyroxine 75 MCG Tablet PO (05:36)
[2024-10-14 08:49] VITALS: BP 110/55; PULSE 85; RESP 16; TEMP 35.8; O2SAT 97
[2024-10-14 08:51] VITALS: PULSE 85
[2024-10-14] MEDS: Metoprolol Tartrate 25 MG Tablet 12.5 MG PO ×2 (08:51→21:03)
[2024-10-14] MEDS: Folic Acid 1 MG Tablet PO (08:51)
[2024-10-14] MEDS: Iron Polysaccharide Complex 150 MG CAPSULE PO (08:51)
[2024-10-14] MEDS: Aspirin E.C. 81 MG Tablet PO ×2 (08:51→16:58)
[2024-10-14] MEDS: Citalopram 20 MG Tablet PO (08:51)
[2024-10-14] MEDS: Ascorbic Acid 500 MG Tablet PO (08:51)
[2024-10-14] MEDS: Loratadine 10 MG Tablet PO (08:51)
[2024-10-14] MEDS: Fluticasone/Salmeterol 232-14 Inhaler 1 PUFF INHALATION ×2 (08:52→20:57)
[2024-10-14] MEDS: Menthol/Lanolin/Calamine/Znox 113 GM Tube 1 APPLIC TOPICAL ×2 (08:52→20:56)
[2024-10-14] MEDS: Umeclidinium Bromide Inhaler 1 PUFF INHALATION (08:52)
[2024-10-14] MEDS: oxyCODONE 5 MG Tablet PO ×2 (08:55→16:59)
[2024-10-14 11:05] VITALS: BMI 35.4
--- NOTE | 2024-10-14 14:36 | MDS.RN ---
Information for the MDS was obtained from review of the clinical record, interview of resident, staff, and direct observation of resident?s care.
--- NOTE | 2024-10-14 15:15 | CASEMGMT ---
Social Work SW left VM with dtr, Nat, to discuss assistance given to pt prior and plan for DC. Alicia Carrillo COLOR PASTE MIXING SUPERVISOR CSR
[2024-10-14 20:00] VITALS: PULSE 80; O2SAT 94
[2024-10-14] MEDS: Baclofen 10 MG Tablet PO (20:58)
[2024-10-14] MEDS: Pantoprazole Sodium 40 MG Tablet PO (20:59)
[2024-10-14] MEDS: MELATONIN 3 MG TABLET PO (20:59)
[2024-10-14 21:03] VITALS: BP 110/61; PULSE 84
[2024-10-14 21:10] VITALS: BP 110/61; PULSE 84
[2024-10-15] MEDS: oxyCODONE 5 MG Tablet PO ×3 (01:21→22:34)
[2024-10-15] MEDS: Acetaminophen 500 MG Tablet 1000 MG PO ×3 (05:47→20:32)
[2024-10-15] MEDS: Levothyroxine 75 MCG Tablet PO (05:47)
[2024-10-15 07:00] VITALS: PULSE 76; O2SAT 95
[2024-10-15 08:29] VITALS: BP 94/56; PULSE 93; RESP 16; TEMP 36.4; O2SAT 93
[2024-10-15] MEDS: Polyethylene Glycol 3350 17 GM PACKET PO (08:31)
[2024-10-15] MEDS: Fluticasone/Salmeterol 232-14 Inhaler 1 PUFF INHALATION ×2 (08:32→20:31)
[2024-10-15] MEDS: Umeclidinium Bromide Inhaler 1 PUFF INHALATION (08:32)
[2024-10-15 08:33] VITALS: PULSE 93
[2024-10-15] MEDS: Loratadine 10 MG Tablet PO (08:33)
[2024-10-15] MEDS: Citalopram 20 MG Tablet PO (08:33)
[2024-10-15] MEDS: Ascorbic Acid 500 MG Tablet PO (08:33)
[2024-10-15] MEDS: Iron Polysaccharide Complex 150 MG CAPSULE PO (08:33)
[2024-10-15] MEDS: Folic Acid 1 MG Tablet PO (08:33)
[2024-10-15] MEDS: Metoprolol Tartrate 25 MG Tablet 12.5 MG PO ×2 (08:33→20:32)
[2024-10-15] MEDS: Aspirin E.C. 81 MG Tablet PO ×2 (08:33→17:09)
[2024-10-15] MEDS: Menthol/Lanolin/Calamine/Znox 113 GM Tube 1 APPLIC TOPICAL ×2 (08:40→20:36)
[2024-10-15 20:32] VITALS: BP 125/63; PULSE 88
[2024-10-15] MEDS: MELATONIN 3 MG TABLET PO (20:32)
[2024-10-15] MEDS: Baclofen 10 MG Tablet PO (20:32)
[2024-10-15] MEDS: Pantoprazole Sodium 40 MG Tablet PO (20:32)
[2024-10-15 20:35] VITALS: BP 125/63; PULSE 88
[2024-10-16] MEDS: Baclofen 10 MG Tablet PO ×3 (01:25→20:28)
[2024-10-16 01:26] VITALS: PULSE 84; RESP 16
[2024-10-16] MEDS: Levothyroxine 75 MCG Tablet PO (05:55)
[2024-10-16] MEDS: Acetaminophen 500 MG Tablet 1000 MG PO ×3 (05:55→20:27)
[2024-10-16 09:15] VITALS: BP 113/59; PULSE 86; RESP 18; TEMP 36.2; O2SAT 94
[2024-10-16] MEDS: Fluticasone/Salmeterol 232-14 Inhaler 1 PUFF INHALATION ×2 (09:16→20:24)
[2024-10-16] MEDS: Umeclidinium Bromide Inhaler 1 PUFF INHALATION (09:16)
[2024-10-16] MEDS: Citalopram 20 MG Tablet PO (09:17)
[2024-10-16] MEDS: Iron Polysaccharide Complex 150 MG CAPSULE PO (09:17)
[2024-10-16] MEDS: Menthol/Lanolin/Calamine/Znox 113 GM Tube 1 APPLIC TOPICAL ×2 (09:17→20:30)
[2024-10-16] MEDS: Aspirin E.C. 81 MG Tablet PO ×2 (09:17→16:48)
[2024-10-16] MEDS: Ascorbic Acid 500 MG Tablet PO (09:17)
[2024-10-16] MEDS: Loratadine 10 MG Tablet PO (09:17)
[2024-10-16] MEDS: Folic Acid 1 MG Tablet PO (09:17)
[2024-10-16 09:18] VITALS: BP 113/59; PULSE 86
[2024-10-16] MEDS: Metoprolol Tartrate 25 MG Tablet 12.5 MG PO ×2 (09:18→20:27)
[2024-10-16] MEDS: oxyCODONE 5 MG Tablet PO ×2 (11:44→20:26)
[2024-10-16 20:27] VITALS: BP 112/65; PULSE 94
[2024-10-16] MEDS: MELATONIN 3 MG TABLET PO (20:27)
[2024-10-16] MEDS: Pantoprazole Sodium 40 MG Tablet PO (20:28)
[2024-10-16 20:35] VITALS: BP 112/65; PULSE 94
[2024-10-17] MEDS: Levothyroxine 75 MCG Tablet PO (05:51)
[2024-10-17] MEDS: Acetaminophen 500 MG Tablet 1000 MG PO ×3 (05:51→21:06)
[2024-10-17 05:56] LABS: Absolute Lymphocyte Count 1.85 X10^3/uL (0.83-4.51); Absolute Neutrophil Count 2.7 X10^3/uL (2.0-7.7); Basophil# 0.06 X10^3/uL; Basophil% 1.1 % (0-1); Eosinophils% 3.8 % (0-5); Hematocrit 31.8 % (37-47); Lymphocyte # 1.85 X10^3/ul (0.83-4.51); Lymphocyte % 34.9 % (19-41); Mean Corp Hgb Conc 31.4 g/dL (32-36); Mean Corpuscular Volume 98.5 fL (81-99); Monocyte# 0.47 X10^3/uL; Monocyte% 8.9 % (0-10); NRBC Flagged by Analyzer 0 % (0-5); Neutrophil # 2.67 X10^3/uL (2.7-7.7); Neutrophil % 50.4 % (47-70); Platelet Count 429 K/mm3 (150-450); RBC Distribution Width CV 14.6 % (11.6-14.6); RBC Distribution Width SD 52.9 fl (35.1-43.9); Red Blood Count 3.23 M/mm3 (4.2-5.4); White Blood Count 5.3 K/mm3 (4.4-11.0)
[2024-10-17 06:53] LABS: Anion Gap 13 (5-15); BUN 24 mg/dL (4-19); BUN/Creat Ratio 21.6 RATIO (10-20); Calcium,Total 8.9 mg/dL (7.6-11.0); Carbon Dioxide 24.4 mmol/L (21.0-32.0); Chloride 102 mmol/L (98-108); EST Glomerular Filtration Rate 50 (>60); Estimated Creatinine Clearance 40.59 ml/min (50-250); Glucose 97 mg/dL (70-99); Potassium 4.9 mmol/L (3.3-5.1); Sodium Level 140 mmol/L (133-145)
[2024-10-17 07:44] VITALS: BP 111/58; PULSE 76; RESP 16; TEMP 36.1; O2SAT 96
[2024-10-17] MEDS: Ascorbic Acid 500 MG Tablet PO (08:40)
[2024-10-17] MEDS: Aspirin E.C. 81 MG Tablet PO ×2 (08:40→16:11)
[2024-10-17] MEDS: Folic Acid 1 MG Tablet PO (08:40)
[2024-10-17] MEDS: Menthol/Lanolin/Calamine/Znox 113 GM Tube 1 APPLIC TOPICAL ×2 (08:41→21:08)
[2024-10-17] MEDS: Iron Polysaccharide Complex 150 MG CAPSULE PO (08:42)
[2024-10-17] MEDS: Loratadine 10 MG Tablet PO (08:42)
[2024-10-17] MEDS: Citalopram 20 MG Tablet PO (08:42)
[2024-10-17] MEDS: Fluticasone/Salmeterol 232-14 Inhaler 1 PUFF INHALATION ×2 (08:44→21:07)
[2024-10-17] MEDS: Umeclidinium Bromide Inhaler 1 PUFF INHALATION (08:44)
[2024-10-17 08:45] VITALS: BP 111/58; PULSE 76
[2024-10-17] MEDS: Metoprolol Tartrate 25 MG Tablet 12.5 MG PO ×2 (08:45→21:06)
[2024-10-17 09:26] VITALS: PULSE 76; RESP 16; O2SAT 96
[2024-10-17] MEDS: oxyCODONE 5 MG Tablet PO ×2 (10:13→21:11)
[2024-10-17] MEDS: Baclofen 10 MG Tablet PO ×2 (10:13→21:07)
[2024-10-17] MEDS: Ipratropium Bromide 0.06% NASAL SPRAY 2 SPRAY NASAL ×2 (13:55→21:07)
[2024-10-17 16:05] VITALS: PULSE 81; RESP 16; O2SAT 96
[2024-10-17 21:06] VITALS: BP 106/65; PULSE 89
[2024-10-17] MEDS: MELATONIN 3 MG TABLET PO (21:06)
[2024-10-17] MEDS: Pantoprazole Sodium 40 MG Tablet PO (21:07)
[2024-10-18] MEDS: Acetaminophen 500 MG Tablet 1000 MG PO ×3 (05:22→22:31)
[2024-10-18] MEDS: Levothyroxine 75 MCG Tablet PO (05:22)
[2024-10-18 05:28] VITALS: PULSE 74; RESP 16; O2SAT 96
[2024-10-18] MEDS: Ascorbic Acid 500 MG Tablet PO (09:59)
[2024-10-18] MEDS: Menthol/Lanolin/Calamine/Znox 113 GM Tube 1 APPLIC TOPICAL ×2 (09:59→22:30)
[2024-10-18] MEDS: Ipratropium Bromide 0.06% NASAL SPRAY 2 SPRAY NASAL ×2 (09:59→22:29)
[2024-10-18] MEDS: Aspirin E.C. 81 MG Tablet PO ×2 (09:59→16:34)
[2024-10-18] MEDS: Folic Acid 1 MG Tablet PO (09:59)
[2024-10-18 10:00] VITALS: PULSE 82
[2024-10-18] MEDS: Loratadine 10 MG Tablet PO (10:00)
[2024-10-18] MEDS: Iron Polysaccharide Complex 150 MG CAPSULE PO (10:00)
[2024-10-18] MEDS: Metoprolol Tartrate 25 MG Tablet 12.5 MG PO ×2 (10:00→22:31)
[2024-10-18] MEDS: Citalopram 20 MG Tablet PO (10:00)
[2024-10-18] MEDS: Umeclidinium Bromide Inhaler 1 PUFF INHALATION (10:01)
[2024-10-18] MEDS: Fluticasone/Salmeterol 232-14 Inhaler 1 PUFF INHALATION ×2 (10:01→22:30)
[2024-10-18 10:48] VITALS: BP 115/54; PULSE 82; RESP 16; TEMP 36.3; O2SAT 96
[2024-10-18] MEDS: oxyCODONE 5 MG Tablet PO (10:53)
[2024-10-18 22:31] VITALS: BP 131/60; PULSE 83
[2024-10-18] MEDS: MELATONIN 3 MG TABLET PO (22:31)
[2024-10-18] MEDS: Baclofen 10 MG Tablet PO (22:31)
[2024-10-18] MEDS: Pantoprazole Sodium 40 MG Tablet PO (22:31)
[2024-10-19] MEDS: oxyCODONE 5 MG Tablet PO ×2 (00:13→21:25)
[2024-10-19] MEDS: Acetaminophen 500 MG Tablet 1000 MG PO ×3 (06:04→21:27)
[2024-10-19] MEDS: Levothyroxine 75 MCG Tablet PO (06:04)
[2024-10-19] MEDS: Fluticasone/Salmeterol 232-14 Inhaler 1 PUFF INHALATION ×2 (08:45→21:26)
[2024-10-19] MEDS: Ipratropium Bromide 0.06% NASAL SPRAY 2 SPRAY NASAL ×2 (08:46→21:26)
[2024-10-19] MEDS: Umeclidinium Bromide Inhaler 1 PUFF INHALATION (08:46)
[2024-10-19] MEDS: Loratadine 10 MG Tablet PO (08:49)
[2024-10-19] MEDS: Ascorbic Acid 500 MG Tablet PO (08:49)
[2024-10-19] MEDS: Folic Acid 1 MG Tablet PO (08:49)
[2024-10-19] MEDS: Iron Polysaccharide Complex 150 MG CAPSULE PO (08:49)
[2024-10-19] MEDS: Aspirin E.C. 81 MG Tablet PO ×2 (08:49→17:36)
[2024-10-19] MEDS: Citalopram 20 MG Tablet PO (08:49)
[2024-10-19] MEDS: Menthol/Lanolin/Calamine/Znox 113 GM Tube 1 APPLIC TOPICAL ×2 (08:49→21:27)
[2024-10-19 08:50] VITALS: PULSE 75
[2024-10-19] MEDS: Metoprolol Tartrate 25 MG Tablet 12.5 MG PO ×2 (08:50→21:28)
[2024-10-19 10:33] VITALS: BP 120/55; PULSE 75; RESP 18; TEMP 36.3; O2SAT 93
[2024-10-19 21:28] VITALS: PULSE 89
[2024-10-19] MEDS: Pantoprazole Sodium 40 MG Tablet PO (21:28)
[2024-10-19] MEDS: MELATONIN 3 MG TABLET PO (21:28)
[2024-10-19] MEDS: Baclofen 10 MG Tablet PO (21:28)
[2024-10-20] MEDS: Levothyroxine 75 MCG Tablet PO (05:14)
[2024-10-20] MEDS: Acetaminophen 500 MG Tablet 1000 MG PO ×3 (05:15→22:13)
[2024-10-20 06:11] VITALS: PULSE 72; O2SAT 94
[2024-10-20 07:39] VITALS: BP 140/71; PULSE 85; RESP 18; TEMP 36.2
[2024-10-20] MEDS: Aspirin E.C. 81 MG Tablet PO ×2 (08:35→17:03)
[2024-10-20] MEDS: Ascorbic Acid 500 MG Tablet PO (08:36)
[2024-10-20] MEDS: Folic Acid 1 MG Tablet PO (08:36)
[2024-10-20] MEDS: Ipratropium Bromide 0.06% NASAL SPRAY 2 SPRAY NASAL ×2 (08:37→22:15)
[2024-10-20] MEDS: Menthol/Lanolin/Calamine/Znox 113 GM Tube 1 APPLIC TOPICAL ×2 (08:38→22:16)
[2024-10-20] MEDS: Citalopram 20 MG Tablet PO (08:39)
[2024-10-20] MEDS: Loratadine 10 MG Tablet PO (08:39)
[2024-10-20] MEDS: Iron Polysaccharide Complex 150 MG CAPSULE PO (08:39)
[2024-10-20] MEDS: Fluticasone/Salmeterol 232-14 Inhaler 1 PUFF INHALATION ×2 (08:42→22:12)
[2024-10-20] MEDS: Umeclidinium Bromide Inhaler 1 PUFF INHALATION (08:42)
[2024-10-20 08:43] VITALS: BP 140/71; PULSE 85
[2024-10-20] MEDS: Metoprolol Tartrate 25 MG Tablet 12.5 MG PO ×2 (08:43→22:16)
[2024-10-20] MEDS: Baclofen 10 MG Tablet PO ×3 (08:51→22:16)
[2024-10-20] MEDS: oxyCODONE 5 MG Tablet PO ×2 (08:55→22:11)
--- NOTE | 2024-10-20 09:11 | CASEMGMT ---
Social Work SW received return call from dtr. SW inquired about dtr's availability to assist with pt's toileting tasks at home, given pt is incontinent and needs min-max assist with toileting tasks, Dtr confirmed this it pt's baseline and she will continue assisting. Dtr works various hours, but when she does work, her granddaughter or great niece is home to assist pt. Dtr stated she is unsure pt is ready to come home yet, as pt has expressed wanting to see further improvements. SW educated that last week pt was walking about 85 ft, completing multiple steps, and CGA for other tasks. SW educated [facility] insurance update is this date and IDT meet tomorrow to discuss pt's progress. SW to notify dtr/pt if a DC date is set. Offered dtr to attend therapy training if she wishes. Dtr appreciative of update. SW will continue to follow for DC planning. Alicia Carrillo DRAINLAYER TRUCKING CONTRACTOR
[2024-10-20] MEDS: Senna/Docusate Sodium 1 Tablet 2 TABLET PO (22:13)
[2024-10-20] MEDS: Pantoprazole Sodium 40 MG Tablet PO (22:14)
[2024-10-20 22:16] VITALS: BP 137/71; PULSE 80
[2024-10-20] MEDS: MELATONIN 3 MG TABLET PO (22:16)
[2024-10-20 22:19] VITALS: BP 137/71; PULSE 80
[2024-10-21] MEDS: Levothyroxine 75 MCG Tablet PO (05:34)
[2024-10-21] MEDS: Acetaminophen 500 MG Tablet 1000 MG PO ×3 (05:34→20:56)
[2024-10-21 07:43] VITALS: BP 119/67; PULSE 74; RESP 15; TEMP 36.4; O2SAT 95
[2024-10-21] MEDS: Fluticasone/Salmeterol 232-14 Inhaler 1 PUFF INHALATION ×2 (07:46→20:53)
[2024-10-21] MEDS: Iron Polysaccharide Complex 150 MG CAPSULE PO (07:46)
[2024-10-21] MEDS: Folic Acid 1 MG Tablet PO (07:46)
[2024-10-21] MEDS: Aspirin E.C. 81 MG Tablet PO ×2 (07:46→17:54)
[2024-10-21] MEDS: Citalopram 20 MG Tablet PO (07:46)
[2024-10-21] MEDS: Ascorbic Acid 500 MG Tablet PO (07:46)
[2024-10-21 07:47] VITALS: PULSE 74
[2024-10-21] MEDS: Polyethylene Glycol 3350 17 GM PACKET PO (07:47)
[2024-10-21] MEDS: Loratadine 10 MG Tablet PO (07:47)
[2024-10-21] MEDS: Umeclidinium Bromide Inhaler 1 PUFF INHALATION (07:47)
[2024-10-21] MEDS: Metoprolol Tartrate 25 MG Tablet 12.5 MG PO ×2 (07:47→20:56)
[2024-10-21] MEDS: Ipratropium Bromide 0.06% NASAL SPRAY 2 SPRAY NASAL ×2 (07:50→20:54)
[2024-10-21] MEDS: Menthol/Lanolin/Calamine/Znox 113 GM Tube 1 APPLIC TOPICAL ×2 (07:51→21:10)
[2024-10-21] MEDS: oxyCODONE 5 MG Tablet PO ×2 (13:18→20:53)
[2024-10-21 14:16] VITALS: BMI 36.6
--- NOTE | 2024-10-21 15:53 | CASEMGMT ---
Social Work SW phoned dtr to discuss setting DC date for pt. Pt is progressing well and has returned to baseline. Offered to set date in conjuction with dtr's work schedule. Dtr agreed to DC 10/30. SW confirmed pt's need for new FWW. Offered skilled HHC. Dtr confirmed and stated pt used [facility] prior and would like to use again. SW to coordinate needs. Dtr to transport home. - SW spoke with pt to update on DC plans. Pt agreeable. - Phoned referral to [facility] PT/OT/SW. Sent referral to [facility] for FWW via [employer]. Plan: DC home with family 10/30, [facility] PT/OT/SW, FWW Alicia LORA
--- NOTE | 2024-10-21 19:32 | DS.PCM_ITS ---
Providers Date of Admission: 10/03/24 Primary Care Physician: Dr. Rancho Knott MD Reason For Visit: TOTAL HIP ANTERIOR APPROACH Diagnosis Discharge Diagnosis (1) Debility: Status: Acute Code(s): R53.81 - Other malaise (2) Status post left hip replacement: Status: Acute Code(s): Z96.642 - Presence of left artificial hip joint (3) Essential (primary) hypertension: Status: Acute Code(s): I10 - Essential (primary) hypertension (4) Hypothyroidism: Status: Chronic Code(s): E03.9 - Hypothyroidism, unspecified (5) GERD (gastroesophageal reflux disease): Status: Acute Code(s): K21.9 - Gastro-esophageal reflux disease without esophagitis (6) COPD (chronic obstructive pulmonary disease): Status: Chronic Code(s): J44.9 - Chronic obstructive pulmonary disease, unspecified (7) Obstructive sleep apnea: Status: Acute Code(s): G47.33 - Obstructive sleep apnea (adult) (pediatric) (8) Depression: Status: Acute Code(s): F32.A - Depression, unspecified (9) Insomnia: Status: Acute Code(s): G47.00 - Insomnia, unspecified (10) Low back pain: Status: Acute Code(s): M54.50 - Low back pain, unspecified (11) Hx of deep venous thrombosis: Status: Acute Code(s): Z86.718 - Personal history of other venous thrombosis and embolism (12) Atrial fibrillation: Status: Acute Code(s): I48.91 - Unspecified atrial fibrillation Plan 83 year old female with below past medical history underwent left total hip replacement 09/29/[address] Pennington, postoperative course complicated by orthostatic hypotension, admitted to TCU with debility, here for rehabilitation, strengthening, prior to discharge home with . * Debility - PT/OT. * Pain - Tylenol 1000mg tid, Oxycodone 5-10mg q4 prn. * Bowel - senna/colace 2 tablets bid, Miralax 17gm daily. * Adult immunization - Administer pneumonia vaccine, covid vaccine, flu vaccine as appropriate. * DVT prophylaxis - Eliquis 2.5mg bid thru 10/13/2024, then Aspirin 81mg bid thru 11/11/2024. * Muscle spasm - Baclofen 10mg qhs. 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 * Iron deficiency anemia - Ferrous sulfate 325mg daily. * COPD - Fluticasone Salmeterol 1 puff Q12, Incruse 1 puff daily. * Folate deficiency - Folic acid 1mg daily. * Hypothyroidism - Levothyroxine 75mcg daily. * Allergic rhinitis - Loratadine 10mg daily. * Hypertension - Metoprolol 12.5mg bid. * GERD - Pantoprazole 40mg qhs. Medications at Discharge Home Medications levocetirizine 5 mg tablet 5 mg PO DAILY ALLERGIES 04/06/20 levothyroxine 50 mcg tablet 75 mcg PO DAILY THYROID 06/21/22 fluticasone fur. 100 mcg-umeclid 62.5 mcg-vilant 25 mcg inhalat.powder (Trelegy Ellipta) 1 inh inhalation DAILY asthma 12/27/22 citalopram 20 mg tablet 20 mg PO DAILY antidepressant 03/09/24 omeprazole 40 mg capsule,delayed release 40 mg PO QHS acid reflux 03/09/24 acetaminophen 500 mg tablet 1,000 mg (2 x 500 mg) PO TID Pain #0 tabs 10/03/24 folic acid 1 mg tablet 1 mg PO BREAKFAST Supplement 14 days #14 tabs 10/03/24 metoprolol tartrate 25 mg tablet 12.5 mg (1/2 x 25 mg) PO BID BP #30 tabs 10/03/24 ascorbic acid (vitamin C) 500 mg tablet 500 mg PO BREAKFAST #0 tabs 10/21/24 aspirin 81 mg tablet,delayed release 81 mg PO BIDCM 11 days #0 tabs 10/21/24 baclofen 10 mg tablet 10 mg PO TID PRN PRN Muscle Spasm 30 days #90 tabs 10/21/24 ipratropium bromide 42 mcg (0.06 %) nasal spray 2 spray NASAL BID 30 days #15 mL 10/21/24 oxycodone 5 mg tablet 5 - 10 mg (1 - 2 x 5 mg) PO Q6H PRN PRN Pain Score 5-10 7 days #56 tabs 10/21/24 polysaccharide iron complex 150 mg iron capsule (Ferrex) 150 mg PO DAILY 30 days #30 caps 10/21/24 sennosides 8.6 mg-docusate sodium 50 mg tablet (Stimulant Laxative Plus) 2 tab PO BID 30 days #120 tabs 10/21/24 Hospital Course Operations total hip replacement (Left.) Procedures None Summary of Care Provided Minutes Spent on Discharge: 35 Hospital Course: 83 year old female with below past medical history underwent left total hip replacement 09/29/[address] Pennington, postoperative course complicated by orthostatic hypotension, admitted to TCU with debility, here for rehabilitation, strengthening, prior to discharge home with . Discharge home with family 10/30/2024, [facility] PT/OT/SW, FWW. FWW: Patient is unsafe with a cane and requires frequent rest breaks that can be resolved with use of a rollator for ambulation in the home and the community. Physical Exam Const alert General Appearance: cooperative HEENT normocephalic Eyes PERRL and EOMs intact bilaterally Neck supple, no JVD and no carotid bruits Resp normal respiratory effort, normal air movement and clear to auscultation bilaterally Cardio regular rate and regular rhythm GI normal to inspection, nondistended, normoactive bowel sounds, non-tender and non-distended Extremity normal capillary refill General Extremity: Negative for edema Skin no rashes or lesions noted General Skin Exam: no breakdown Psych affect normal Appearance: appropriate Weight / BMI Weight Weight: 90.401 kg Body Mass Index (BMI) 36.6 ABG / Lab / Microbiology Data 10/17/24 05:16 10/17/24 05:16 D/C Instructions Discharge Diet: No restrictions Discharge Activity: Return to Normal Activity, May Shower and Use Walker Weight Bearing Status: Weight bearing as tolerated Call your doctor if you observe: Fever of 101 or Higher, Inability to urinate, Inability to have a bowel movement, Shortness of breath, Dizziness, Fainting spells, Swelling in the ankles, Chest pain and Uncontrolled pain DC O2, CPAP, BIPAP Needs Home O2 Discharge instructions: No Additional Instructions: Discharge home with family 10/30/2024, [facility] PT/OT/SW, FWW. FWW: Patient is unsafe with a cane and requires frequent rest breaks that can be resolved with use of a rollator for ambulation in the home and the community. Please Follow Up With: Dr. Pennington When: As scheduled. Meaningful Use Info Meaningful Use Meaningful Use Diagnoses (Choose all that apply): None applicable Ischemic Stroke Statin Dosing Therapy Reference: STATIN DOSE THERAPY REFERENCE: * Patients > 75 years receive moderate or high dose statin therapy. * Patients 75 years or YOUNGER should receive HIGH intensity statin dose unless contraindicated. You will be required to document reason for non-treatment if statin daily dose does not meet guidelines. HIGH DOSE STATIN THERAPY DAILY Atorvastatin > than or = to 40 mg Rosuvastatin > than or = to 20 mg Amlodipine + Atorvastatin > than or = to 2.5/40 mg Ezetimibe + Simvastatin 10/80 mg Simvastatin 80mg Discharge Plan Admission Admit Date/Time: 10/03/24 16:24 Primary Reason for Your Visit: Debility. Attending Provider: Rancho Knott Chi Primary Care Provider: Rancho Knott Chi Instructions Additional Instructions / Restrictions: Discharge home with family 10/30/2024, [facility] PT/OT/SW, FWW. FWW: Patient is unsafe with a cane and requires frequent rest breaks that can be resolved with use of a rollator for ambulation in the home and the community. Discharge Orders/Prescriptions Prescriptions: New polysaccharide iron complex [Ferrex 150] 150 mg iron Capsule 150 mg PO DAILY 30 Days Qty: 30 0RF sennosides-docusate sodium [Stimulant Laxative Plus] 8.6-50 mg Tablet 2 tab PO BID 30 Days Qty: 120 0RF aspirin 81 mg Tablet,Delayed Release (Dr/Ec) 81 mg PO BIDCM 11 Days Qty: 0 0RF ascorbic acid (vitamin C) 500 mg Tablet 500 mg PO BREAKFAST Qty: 0 0RF baclofen 10 mg Tablet 10 mg PO TID PRN PRN (Reason: Muscle Spasm) 30 Days Qty: 90 0RF ipratropium bromide 42 mcg (0.06 %) [place],Non-Aerosol 2 spray NASAL BID 30 Days Qty: 15 0RF oxycodone 5 mg Tablet 5 - 10 mg PO Q6H PRN PRN (Reason: Pain Score 5-10) 7 Days Qty: 56 0RF Continued levocetirizine 5 mg tablet 5 mg PO DAILY Trelegy Ellipta 100-62.5-25 mcg blister with device 1 inh inhalation DAILY levothyroxine 50 mcg tablet 75 mcg PO DAILY omeprazole 40 mg capsule,delayed release(DR/EC) 40 mg PO QHS citalopram 20 mg tablet 20 mg PO DAILY acetaminophen 500 mg Tablet 1,000 mg PO TID Qty: 0 0RF folic acid 1 mg Tablet 1 mg PO BREAKFAST 14 Days Qty: 14 0RF Rx Instructions: Take due to postoperative anemia and see primary care provider for chronic management. metoprolol tartrate 25 mg tablet 12.5 mg PO BID Qty: 30 0RF Discontinued acetaminophen 500 mg Tablet 1,000 mg PO Q8 Qty: 0 0RF aspirin 81 mg Tablet,Delayed Release (Dr/Ec) 81 mg PO DAILYCM Qty: 0 0RF tramadol 50 mg Tablet 50 mg PO Q6H PRN PRN (Reason: Pain Score 1-5 Or Pre Pt/Ot) 7 Days Qty: 28 0RF baclofen 10 mg tablet 10 mg PO QHS sennosides-docusate sodium [Stimulant Laxative Plus] 8.6-50 mg Tablet 2 tab PO BID PRN (Reason: constipation) Eliquis 5 mg Tablet 2.5 mg PO BID 10 Days Qty: 10 0RF Rx Instructions: Take until 2 weeks postoperatively due to previous DVT. ferrous sulfate [FeroSul] 325 mg (65 mg iron) Tablet 325 mg PO DAILY@1200 14 Days Qty: 14 0RF Rx Instructions: Take due to postoperative anemia and see primary care provider for chronic management. oxycodone 5 mg Tablet 5 - 10 mg PO Q4H PRN PRN (Reason: As needed for pain control) 7 Days Qty: 42 0RF Referrals / Follow Up: Rene Pennington MD [Med Staff - Active Staff] - (6 weeks post op appt. ) Rancho Knott Chi, MD [Primary Care Provider] - Within 1 Week Disposition Disposition (needs filled in before D/C Order can be placed): Home Health Service
[2024-10-21 20:56] VITALS: BP 119/53; PULSE 76
[2024-10-21] MEDS: MELATONIN 3 MG TABLET PO (20:56)
[2024-10-21] MEDS: Baclofen 10 MG Tablet PO (20:57)
[2024-10-21] MEDS: Pantoprazole Sodium 40 MG Tablet PO (20:57)
[2024-10-21 21:00] VITALS: RESP 16
--- NOTE | 2024-10-22 02:58 | NURSING ---
Per patient's request, Left Hip JAMIN. Continue to monitor area. If irritation occurs, place 4x4 in abdominal fold to prevent friction.
[2024-10-22 04:19] VITALS: PULSE 80; RESP 16
[2024-10-22] MEDS: Levothyroxine 75 MCG Tablet PO (05:30)
[2024-10-22] MEDS: Acetaminophen 500 MG Tablet 1000 MG PO ×3 (05:30→20:54)
[2024-10-22] MEDS: Baclofen 10 MG Tablet PO ×2 (05:30→20:54)
[2024-10-22] MEDS: oxyCODONE 5 MG Tablet PO ×3 (06:43→23:41)
[2024-10-22] MEDS: Folic Acid 1 MG Tablet PO (10:04)
[2024-10-22] MEDS: Aspirin E.C. 81 MG Tablet PO ×2 (10:04→17:34)
[2024-10-22] MEDS: Ascorbic Acid 500 MG Tablet PO (10:05)
[2024-10-22] MEDS: Ipratropium Bromide 0.06% NASAL SPRAY 2 SPRAY NASAL ×2 (10:05→20:52)
[2024-10-22] MEDS: Menthol/Lanolin/Calamine/Znox 113 GM Tube 1 APPLIC TOPICAL ×2 (10:05→20:53)
[2024-10-22] MEDS: Fluticasone/Salmeterol 232-14 Inhaler 1 PUFF INHALATION ×2 (10:06→20:53)
[2024-10-22] MEDS: Loratadine 10 MG Tablet PO (10:06)
[2024-10-22] MEDS: Iron Polysaccharide Complex 150 MG CAPSULE PO (10:06)
[2024-10-22] MEDS: Citalopram 20 MG Tablet PO (10:06)
[2024-10-22] MEDS: Umeclidinium Bromide Inhaler 1 PUFF INHALATION (10:06)
[2024-10-22 10:07] VITALS: BP 115/58; PULSE 75
[2024-10-22] MEDS: Metoprolol Tartrate 25 MG Tablet 12.5 MG PO ×2 (10:07→20:54)
[2024-10-22] MEDS: Polyethylene Glycol 3350 17 GM PACKET PO (10:08)
[2024-10-22 10:12] VITALS: BP 115/58; PULSE 75; RESP 18; TEMP 36.4; O2SAT 94
[2024-10-22 20:54] VITALS: BP 127/63; PULSE 76
[2024-10-22] MEDS: Pantoprazole Sodium 40 MG Tablet PO (20:55)
[2024-10-22] MEDS: MELATONIN 3 MG TABLET PO (20:55)
[2024-10-22 20:59] VITALS: BP 127/63; PULSE 76
[2024-10-23] MEDS: Levothyroxine 75 MCG Tablet PO (06:11)
[2024-10-23] MEDS: Acetaminophen 500 MG Tablet 1000 MG PO ×3 (06:11→20:33)
[2024-10-23] MEDS: Ipratropium Bromide 0.06% NASAL SPRAY 2 SPRAY NASAL ×2 (09:20→20:25)
[2024-10-23] MEDS: Umeclidinium Bromide Inhaler 1 PUFF INHALATION (09:20)
[2024-10-23] MEDS: Fluticasone/Salmeterol 232-14 Inhaler 1 PUFF INHALATION ×2 (09:20→20:27)
[2024-10-23 09:21] VITALS: BP 114/49; PULSE 72
[2024-10-23] MEDS: Ascorbic Acid 500 MG Tablet PO (09:21)
[2024-10-23] MEDS: Folic Acid 1 MG Tablet PO (09:21)
[2024-10-23] MEDS: Loratadine 10 MG Tablet PO (09:21)
[2024-10-23] MEDS: Metoprolol Tartrate 25 MG Tablet 12.5 MG PO ×2 (09:21→20:37)
[2024-10-23] MEDS: Aspirin E.C. 81 MG Tablet PO ×2 (09:21→17:30)
[2024-10-23] MEDS: Citalopram 20 MG Tablet PO (09:21)
[2024-10-23] MEDS: Iron Polysaccharide Complex 150 MG CAPSULE PO (09:21)
[2024-10-23] MEDS: Polyethylene Glycol 3350 17 GM PACKET PO (09:22)
[2024-10-23] MEDS: oxyCODONE 5 MG Tablet PO ×2 (09:25→20:41)
[2024-10-23] MEDS: Menthol/Lanolin/Calamine/Znox 113 GM Tube 1 APPLIC TOPICAL ×2 (09:28→20:26)
[2024-10-23 09:33] VITALS: BP 114/49; PULSE 72; RESP 18; TEMP 36.8; O2SAT 92
[2024-10-23 13:30] VITALS: PULSE 72; RESP 18; O2SAT 92
[2024-10-23] MEDS: MELATONIN 3 MG TABLET PO (20:34)
[2024-10-23] MEDS: Baclofen 10 MG Tablet PO (20:34)
[2024-10-23] MEDS: Pantoprazole Sodium 40 MG Tablet PO (20:35)
[2024-10-23 20:37] VITALS: BP 105/63; PULSE 87
[2024-10-23 20:45] VITALS: BP 105/63; PULSE 87
[2024-10-24] MEDS: Levothyroxine 75 MCG Tablet PO (05:18)
[2024-10-24] MEDS: Acetaminophen 500 MG Tablet 1000 MG PO ×3 (05:18→20:43)
[2024-10-24 05:54] LABS: Absolute Lymphocyte Count 1.45 X10^3/uL (0.83-4.51); Basophil# 0.05 X10^3/uL; Basophil% 1.2 % (0-1); Eosinophil# 0.14 X10^3/uL; Eosinophils% 3.5 % (0-5); Hematocrit 30.8 % (37-47); Hemoglobin 9.5 g/dL (12.0-15.0); Lymphocyte # 1.45 X10^3/ul (0.83-4.51); Lymphocyte % 35.8 % (19-41); Mean Corp Hgb Conc 30.8 g/dL (32-36); Mean Corpuscular Hgb 30.4 pg (27.0-32.0); Mean Corpuscular Volume 98.7 fL (81-99); Mean Platelet Vol. 9.4 fl (6.2-12.0); Monocyte# 0.43 X10^3/uL; Monocyte% 10.6 % (0-10); NRBC Flagged by Analyzer 0 % (0-5); Neutrophil # 1.95 X10^3/uL (2.7-7.7); Neutrophil % 48.2 % (47-70); Platelet Count 255 K/mm3 (150-450); RBC Distribution Width CV 14.3 % (11.6-14.6); RBC Distribution Width SD 51.7 fl (35.1-43.9); Red Blood Count 3.12 M/mm3 (4.2-5.4); White Blood Count 4.1 K/mm3 (4.4-11.0)
[2024-10-24 06:46] LABS: Anion Gap 11 (5-15); BUN 27 mg/dL (4-19); BUN/Creat Ratio 28.7 RATIO (10-20); Calcium,Total 8.8 mg/dL (7.6-11.0); Carbon Dioxide 24.5 mmol/L (21.0-32.0); Chloride 103 mmol/L (98-108); Creatinine, Serum 0.95 mg/dL (0.70-1.20); EST Glomerular Filtration Rate 60 (>60); Estimated Creatinine Clearance 47.73 ml/min (50-250); Glucose 94 mg/dL (70-99); Potassium 4.6 mmol/L (3.3-5.1); Sodium Level 139 mmol/L (133-145)
[2024-10-24 08:00] VITALS: BP 111/52; PULSE 77; RESP 16; TEMP 36.7; O2SAT 96
[2024-10-24] MEDS: Ipratropium Bromide 0.06% NASAL SPRAY 2 SPRAY NASAL ×2 (08:18→20:39)
[2024-10-24] MEDS: Fluticasone/Salmeterol 232-14 Inhaler 1 PUFF INHALATION ×2 (08:18→20:40)
[2024-10-24] MEDS: Umeclidinium Bromide Inhaler 1 PUFF INHALATION (08:18)
[2024-10-24 08:19] VITALS: BP 111/52; PULSE 76
[2024-10-24] MEDS: Folic Acid 1 MG Tablet PO (08:19)
[2024-10-24] MEDS: Loratadine 10 MG Tablet PO (08:19)
[2024-10-24] MEDS: Senna/Docusate Sodium 1 Tablet 2 TABLET PO (08:19)
[2024-10-24] MEDS: Metoprolol Tartrate 25 MG Tablet 12.5 MG PO ×2 (08:19→20:47)
[2024-10-24] MEDS: Ascorbic Acid 500 MG Tablet PO (08:20)
[2024-10-24] MEDS: Citalopram 20 MG Tablet PO (08:20)
[2024-10-24] MEDS: Aspirin E.C. 81 MG Tablet PO ×2 (08:20→17:28)
[2024-10-24] MEDS: Iron Polysaccharide Complex 150 MG CAPSULE PO (08:20)
[2024-10-24] MEDS: Polyethylene Glycol 3350 17 GM PACKET PO (08:20)
[2024-10-24] MEDS: Menthol/Lanolin/Calamine/Znox 113 GM Tube 1 APPLIC TOPICAL ×2 (08:23→20:41)
[2024-10-24] MEDS: oxyCODONE 5 MG Tablet PO ×2 (09:45→20:51)
[2024-10-24 20:00] VITALS: PULSE 84; RESP 16; O2SAT 95
[2024-10-24 20:35] VITALS: BP 113/53; PULSE 85
[2024-10-24] MEDS: Pantoprazole Sodium 40 MG Tablet PO (20:44)
[2024-10-24] MEDS: MELATONIN 3 MG TABLET PO (20:44)
[2024-10-24] MEDS: Baclofen 10 MG Tablet PO (20:45)
[2024-10-24 20:47] VITALS: BP 113/53; PULSE 85
[2024-10-25] MEDS: Levothyroxine 75 MCG Tablet PO (05:42)
[2024-10-25] MEDS: Acetaminophen 500 MG Tablet 1000 MG PO ×3 (05:42→20:34)
[2024-10-25 06:37] VITALS: PULSE 78; RESP 16; O2SAT 94
[2024-10-25 08:28] VITALS: BP 112/67; PULSE 78; RESP 16; TEMP 36.5; O2SAT 95
[2024-10-25] MEDS: Umeclidinium Bromide Inhaler 1 PUFF INHALATION (08:34)
[2024-10-25] MEDS: Ascorbic Acid 500 MG Tablet PO (08:34)
[2024-10-25] MEDS: Aspirin E.C. 81 MG Tablet PO ×2 (08:34→16:37)
[2024-10-25] MEDS: Folic Acid 1 MG Tablet PO (08:34)
[2024-10-25] MEDS: Citalopram 20 MG Tablet PO (08:34)
[2024-10-25] MEDS: Fluticasone/Salmeterol 232-14 Inhaler 1 PUFF INHALATION ×2 (08:34→20:36)
[2024-10-25] MEDS: Ipratropium Bromide 0.06% NASAL SPRAY 2 SPRAY NASAL ×2 (08:34→20:35)
[2024-10-25 08:35] VITALS: PULSE 78
[2024-10-25] MEDS: Metoprolol Tartrate 25 MG Tablet 12.5 MG PO ×2 (08:35→20:33)
[2024-10-25] MEDS: Iron Polysaccharide Complex 150 MG CAPSULE PO (08:35)
[2024-10-25] MEDS: Loratadine 10 MG Tablet PO (08:35)
[2024-10-25] MEDS: Menthol/Lanolin/Calamine/Znox 113 GM Tube 1 APPLIC TOPICAL ×2 (08:37→20:35)
[2024-10-25] MEDS: oxyCODONE 5 MG Tablet PO ×2 (08:47→20:36)
[2024-10-25 20:33] VITALS: BP 152/65; PULSE 82
[2024-10-25] MEDS: Pantoprazole Sodium 40 MG Tablet PO (20:33)
[2024-10-25] MEDS: MELATONIN 3 MG TABLET PO (20:34)
[2024-10-25] MEDS: Baclofen 10 MG Tablet PO (20:35)
[2024-10-26] MEDS: Levothyroxine 75 MCG Tablet PO (05:59)
[2024-10-26] MEDS: Acetaminophen 500 MG Tablet 1000 MG PO ×3 (05:59→21:28)
[2024-10-26] MEDS: Baclofen 10 MG Tablet PO ×2 (07:02→21:27)
[2024-10-26] MEDS: Fluticasone/Salmeterol 232-14 Inhaler 1 PUFF INHALATION ×2 (08:18→21:26)
[2024-10-26] MEDS: Ipratropium Bromide 0.06% NASAL SPRAY 2 SPRAY NASAL ×2 (08:19→21:26)
[2024-10-26] MEDS: Umeclidinium Bromide Inhaler 1 PUFF INHALATION (08:19)
[2024-10-26] MEDS: Polyethylene Glycol 3350 17 GM PACKET PO (08:20)
[2024-10-26 08:21] VITALS: BP 124/62; PULSE 80
[2024-10-26] MEDS: Metoprolol Tartrate 25 MG Tablet 12.5 MG PO ×2 (08:21→21:27)
[2024-10-26] MEDS: Folic Acid 1 MG Tablet PO (08:22)
[2024-10-26] MEDS: Aspirin E.C. 81 MG Tablet PO ×2 (08:22→16:01)
[2024-10-26] MEDS: Loratadine 10 MG Tablet PO (08:22)
[2024-10-26] MEDS: Ascorbic Acid 500 MG Tablet PO (08:22)
[2024-10-26] MEDS: Citalopram 20 MG Tablet PO (08:23)
[2024-10-26] MEDS: Iron Polysaccharide Complex 150 MG CAPSULE PO (08:23)
[2024-10-26] MEDS: Menthol/Lanolin/Calamine/Znox 113 GM Tube 1 APPLIC TOPICAL ×2 (08:24→21:29)
[2024-10-26 08:30] VITALS: BP 124/62; PULSE 80; RESP 18; TEMP 36.4
[2024-10-26] MEDS: oxyCODONE 5 MG Tablet PO ×2 (15:58→22:24)
[2024-10-26 21:27] VITALS: BP 145/66; PULSE 80
[2024-10-26] MEDS: MELATONIN 3 MG TABLET PO (21:27)
[2024-10-26] MEDS: Pantoprazole Sodium 40 MG Tablet PO (21:28)
[2024-10-26 21:32] VITALS: BP 145/66; PULSE 80
[2024-10-27] MEDS: Baclofen 10 MG Tablet PO ×2 (00:23→20:48)
[2024-10-27] MEDS: Levothyroxine 75 MCG Tablet PO (05:15)
[2024-10-27] MEDS: Acetaminophen 500 MG Tablet 1000 MG PO ×3 (05:15→20:51)
[2024-10-27 08:00] VITALS: BP 111/51; PULSE 75; RESP 18; O2SAT 95
[2024-10-27] MEDS: Iron Polysaccharide Complex 150 MG CAPSULE PO (08:09)
[2024-10-27] MEDS: Ipratropium Bromide 0.06% NASAL SPRAY 2 SPRAY NASAL ×2 (08:09→20:46)
[2024-10-27] MEDS: Folic Acid 1 MG Tablet PO (08:09)
[2024-10-27] MEDS: Ascorbic Acid 500 MG Tablet PO (08:09)
[2024-10-27] MEDS: Umeclidinium Bromide Inhaler 1 PUFF INHALATION (08:09)
[2024-10-27] MEDS: Fluticasone/Salmeterol 232-14 Inhaler 1 PUFF INHALATION ×2 (08:09→20:47)
[2024-10-27] MEDS: Citalopram 20 MG Tablet PO (08:09)
[2024-10-27 08:10] VITALS: BP 111/51; PULSE 75
[2024-10-27] MEDS: Aspirin E.C. 81 MG Tablet PO ×2 (08:10→17:09)
[2024-10-27] MEDS: Metoprolol Tartrate 25 MG Tablet 12.5 MG PO ×2 (08:10→20:49)
[2024-10-27] MEDS: Loratadine 10 MG Tablet PO (08:10)
[2024-10-27] MEDS: oxyCODONE 5 MG Tablet PO ×2 (08:11→20:53)
[2024-10-27] MEDS: Menthol/Lanolin/Calamine/Znox 113 GM Tube 1 APPLIC TOPICAL ×2 (08:11→20:46)
[2024-10-27 20:00] VITALS: PULSE 88; RESP 16; O2SAT 95
[2024-10-27 20:43] VITALS: BP 117/51; PULSE 80
[2024-10-27 20:49] VITALS: BP 117/51; PULSE 80
[2024-10-27] MEDS: Pantoprazole Sodium 40 MG Tablet PO (20:50)
[2024-10-27] MEDS: MELATONIN 3 MG TABLET PO (20:50)
[2024-10-28] VITALS (7 sets, daily range): BP systolic 111–142; BP diastolic 55–66; PULSE 75–88; RESP 12–18; TEMP 36.2–36.3; O2SAT 94; BMI 36.2
[2024-10-28] MEDS: Acetaminophen 500 MG Tablet 1000 MG PO ×3 (05:43→20:43)
[2024-10-28] MEDS: Levothyroxine 75 MCG Tablet PO (05:43)
[2024-10-28] MEDS: Baclofen 10 MG Tablet PO ×2 (06:19→20:42)
[2024-10-28] MEDS: oxyCODONE 5 MG Tablet PO ×2 (06:19→20:49)
[2024-10-28] MEDS: Umeclidinium Bromide Inhaler 1 PUFF INHALATION (08:39)
[2024-10-28] MEDS: Ipratropium Bromide 0.06% NASAL SPRAY 2 SPRAY NASAL ×2 (08:39→20:39)
[2024-10-28] MEDS: Fluticasone/Salmeterol 232-14 Inhaler 1 PUFF INHALATION ×2 (08:40→20:41)
[2024-10-28] MEDS: Iron Polysaccharide Complex 150 MG CAPSULE PO (08:41)
[2024-10-28] MEDS: Folic Acid 1 MG Tablet PO (08:41)
[2024-10-28] MEDS: Ascorbic Acid 500 MG Tablet PO (08:41)
[2024-10-28] MEDS: Loratadine 10 MG Tablet PO (08:41)
[2024-10-28] MEDS: Menthol/Lanolin/Calamine/Znox 113 GM Tube 1 APPLIC TOPICAL ×2 (08:41→20:40)
[2024-10-28] MEDS: Aspirin E.C. 81 MG Tablet PO ×2 (08:42→17:03)
[2024-10-28] MEDS: Metoprolol Tartrate 25 MG Tablet 12.5 MG PO ×2 (08:42→20:46)
[2024-10-28] MEDS: Citalopram 20 MG Tablet PO (08:42)
--- NOTE | 2024-10-28 15:05 | CASEMGMT ---
Social Work SW completed BIMS () and PHQ-2 () for MDS assessment. Alicia Carrillo ROTOR ASSEMBLER GROUP FITNESS ASSISTANT DEPARTMENT HEAD
[2024-10-28] MEDS: MELATONIN 3 MG TABLET PO (20:42)
[2024-10-28] MEDS: Pantoprazole Sodium 40 MG Tablet PO (20:42)
[2024-10-29] MEDS: Levothyroxine 75 MCG Tablet PO (05:19)
[2024-10-29] MEDS: Acetaminophen 500 MG Tablet 1000 MG PO ×3 (05:20→20:39)
[2024-10-29] MEDS: Ipratropium Bromide 0.06% NASAL SPRAY 2 SPRAY NASAL ×2 (08:37→20:37)
[2024-10-29] MEDS: Fluticasone/Salmeterol 232-14 Inhaler 1 PUFF INHALATION ×2 (08:38→20:41)
[2024-10-29] MEDS: Umeclidinium Bromide Inhaler 1 PUFF INHALATION (08:38)
[2024-10-29] MEDS: Ascorbic Acid 500 MG Tablet PO (08:39)
[2024-10-29] MEDS: Aspirin E.C. 81 MG Tablet PO ×2 (08:39→17:04)
[2024-10-29 08:40] VITALS: BP 105/60; PULSE 84
[2024-10-29] MEDS: Metoprolol Tartrate 25 MG Tablet 12.5 MG PO ×2 (08:40→20:38)
[2024-10-29] MEDS: Iron Polysaccharide Complex 150 MG CAPSULE PO (08:40)
[2024-10-29] MEDS: Citalopram 20 MG Tablet PO (08:40)
[2024-10-29] MEDS: Folic Acid 1 MG Tablet PO (08:40)
[2024-10-29] MEDS: Loratadine 10 MG Tablet PO (08:40)
[2024-10-29] MEDS: Polyethylene Glycol 3350 17 GM PACKET PO (08:40)
[2024-10-29 08:48] VITALS: BP 105/60; PULSE 84; RESP 16; TEMP 36.3; O2SAT 96
[2024-10-29] MEDS: Menthol/Lanolin/Calamine/Znox 113 GM Tube 1 APPLIC TOPICAL ×2 (11:48→20:41)
[2024-10-29 20:35] VITALS: BP 122/62; PULSE 88; RESP 16; O2SAT 95
[2024-10-29 20:38] VITALS: BP 122/62; PULSE 88
[2024-10-29] MEDS: MELATONIN 3 MG TABLET PO (20:38)
[2024-10-29] MEDS: Baclofen 10 MG Tablet PO (20:38)
[2024-10-29] MEDS: Pantoprazole Sodium 40 MG Tablet PO (20:38)
[2024-10-29] MEDS: oxyCODONE 5 MG Tablet PO (21:52)
[2024-10-30] MEDS: Levothyroxine 75 MCG Tablet PO (05:01)
[2024-10-30] MEDS: Acetaminophen 500 MG Tablet 1000 MG PO (05:02)
[2024-10-30] MEDS: Baclofen 10 MG Tablet PO (05:04)
[2024-10-30] MEDS: oxyCODONE 5 MG Tablet PO (05:04)
[2024-10-30 08:04] VITALS: BP 104/58; PULSE 78; RESP 18; TEMP 36.2; O2SAT 93
[2024-10-30] MEDS: Folic Acid 1 MG Tablet PO (08:06)
[2024-10-30] MEDS: Citalopram 20 MG Tablet PO (08:06)
[2024-10-30] MEDS: Ascorbic Acid 500 MG Tablet PO (08:06)
[2024-10-30] MEDS: Loratadine 10 MG Tablet PO (08:06)
[2024-10-30] MEDS: Iron Polysaccharide Complex 150 MG CAPSULE PO (08:06)
[2024-10-30] MEDS: Aspirin E.C. 81 MG Tablet PO (08:06)
[2024-10-30 08:07] VITALS: PULSE 78
[2024-10-30] MEDS: Metoprolol Tartrate 25 MG Tablet 12.5 MG PO (08:07)
[2024-10-30] MEDS: Umeclidinium Bromide Inhaler 1 PUFF INHALATION (08:08)
[2024-10-30] MEDS: Fluticasone/Salmeterol 232-14 Inhaler 1 PUFF INHALATION (08:08)
[2024-10-30] MEDS: Ipratropium Bromide 0.06% NASAL SPRAY 2 SPRAY NASAL (08:09)
[2024-10-30] MEDS: Menthol/Lanolin/Calamine/Znox 113 GM Tube 1 APPLIC TOPICAL (08:10)
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
--- NOTE | 2024-10-30 09:19 | CASEMGMT ---
Social Work Written hand off given to [facility] DARR[facility]. Alicia Carrillo CYLINDER HEAD ASSEMBLER SOFTWARE INTEGRATION DEVELOPER
== END 2024-10-30 11:20 | disposition home health service (06) | DRG 560 ==
PROVIDERS: Admitting Provider Family Medicine Geriatric Medicine; PCP Family Medicine Geriatric Medicine; Referring Provider Family Medicine Geriatric Medicine; Visit Provider Family Medicine Geriatric Medicine
DX: Z47.1 Aftercare following joint replacement surgery (principal); N39.0 Urinary tract infection, site not specified; B96.1 Klebsiella pneumoniae [K. pneumoniae] as the cause of diseases classified elsewhere; J44.9 Chronic obstructive pulmonary disease, unspecified; D50.9 Iron deficiency anemia, unspecified; E03.9 Hypothyroidism, unspecified; I10 Essential (primary) hypertension; F32.A Depression, unspecified; I48.91 Unspecified atrial fibrillation; G47.33 Obstructive sleep apnea (adult) (pediatric); K21.9 Gastro-esophageal reflux disease without esophagitis; E53.8 Deficiency of other specified B group vitamins; J30.9 Allergic rhinitis, unspecified; B96.5 Pseudomonas (aeruginosa) (mallei) (pseudomallei) as the cause of diseases classified elsewhere; Z96.642 Presence of left artificial hip joint; Z87.891 Personal history of nicotine dependence; Z79.82 Long term (current) use of aspirin; Z79.51 Long term (current) use of inhaled steroids; G47.00 Insomnia, unspecified; Z86.718 Personal history of other venous thrombosis and embolism; Z79.899 Other long term (current) drug therapy; Z79.890 Hormone replacement therapy
CPT/HCPCS: 36415; 80048; 85014; 85018; 85025; 97110; 97116; 97162; 97165; 97530; 97535; 97802; A4216

== ENCOUNTER 2024-11-23 15:34 | Emergency (ER) | payer MEDICARE, SELFPAY ==
[2024-11-23] VITALS (7 sets, daily range): BP systolic 74–138; BP diastolic 42–92; PULSE 57–64; RESP 14–21; TEMP 36.3; O2SAT 93–96; BMI 37.6
--- NOTE | 2024-11-23 15:43 | EKG12_ITS ---
Test Reason : HYPOTENSION Blood Pressure : */* mmHG Vent. Rate : 57 BPM Atrial Rate : 57 BPM P-R Int : 152 ms QRS Dur : 68 ms QT Int : 462 ms P-R-T Axes : 27 49 27 degrees QTcB Int : 449 ms Sinus bradycardia Otherwise normal ECG Confirmed by Mich Alcantar ([id number]), visual effects editor MAR CANTU ([id number]) on 11/24/2024 1:18:17 PM Referred By: Confirmed By: Mich Alcantar
--- NOTE | 2024-11-23 15:44 | EX.ED.DYSGE1 ---
HPI History of Present Illness Chief Complaint: Hypotension Informant: patient, spouse/S.O. and EMS Narrative Narrative: 84-year-old female presenting to the emergency notes hypotension. She denies any pain. She states that this morning she got up and was cleaning. Her noon she sorted her pills into their content errors and took her med hours later than normal. She states that she cannot come up with really any other symptoms. She is not nauseated. She notes no change in stool. Stools have not been tarry or loose. She is typically on iron but no change in the color. She denies any urinary symptoms. [facility] Medical History Wears hearing aid Wears dentures Post-menopausal Depression Bladder disease Uses wheelchair Walker as ambulation aid Easy bruising Back pain Restless legs Former smoker Leg cramps History of pain when walking History of edema History of echocardiogram History of stress test History of Holter monitoring Hypertension Cardiology follow-up encounter History of atrial fibrillation MRSA infection Hx of deep venous thrombosis Anxiety GERD (gastroesophageal reflux disease) CPAP (continuous positive airway pressure) dependence Migraines Hypothyroidism History of asthma History of COPD History of arthritis History of Right Foot Fracture Home Medications ?Medication ?Instructions ?Recorded ?Last Taken ?Type levocetirizine 5 mg tablet 5 mg PO DAILY ALLERGIES 04/06/20 10/03/24 09:10 History fluticasone fur. 100 mcg-umeclid 1 inh inhalation DAILY asthma 12/27/22 09/28/24 08:00 History 62.5 mcg-vilant 25 mcg inhalat.powder (Trelegy Ellipta) citalopram 20 mg tablet 20 mg PO DAILY antidepressant 03/09/24 10/03/24 09:10 History omeprazole 40 mg capsule,delayed 40 mg PO QHS acid reflux 03/09/24 10/02/24 22:55 History release acetaminophen 500 mg tablet 1,000 mg (2 x 500 mg) PO TID Pain 10/03/24 10/03/24 06:40 Rx #0 tabs folic acid 1 mg tablet 1 mg PO BREAKFAST Supplement 14 10/03/24 10/03/24 09:10 Rx days #14 tabs ascorbic acid (vitamin C) 500 mg 500 mg PO BREAKFAST #0 tabs 10/21/24 Unknown Rx tablet ipratropium bromide 42 mcg (0.06 2 spray NASAL BID 30 days #15 mL 10/21/24 Unknown Rx %) nasal spray polysaccharide iron complex 150 mg 150 mg PO DAILY 30 days #30 caps 10/21/24 Unknown Rx iron capsule (Ferrex) sennosides 8.6 mg-docusate sodium 2 tab PO BID 30 days #120 tabs 10/21/24 Unknown Rx 50 mg tablet (Stimulant Laxative Plus) aspirin 81 mg tablet,delayed 81 mg PO DAILY 11/23/24 Unknown History release baclofen 10 mg tablet 10 mg PO TID PRN Muscle Spasm 11/23/24 Unknown History levothyroxine 75 mcg tablet 75 mcg PO DAILY 11/23/24 Unknown History metoprolol tartrate 25 mg tablet 25 mg PO BID BP 11/23/24 Unknown History oxycodone 5 mg tablet 5 - 10 mg PO Q6H PRN Pain Score 11/23/24 Unknown History 5-10 tizanidine 4 mg tablet 4 mg PO DAILY PRN muscle spasticity 11/23/24 Unknown History tramadol 50 mg tablet 50 mg PO BID PRN pain 11/23/24 Unknown History Allergy/AdvReac Type Severity Reaction Status Date / Time Penicillins Allergy Severe facial Verified 11/23/24 15:35 swelling latex Allergy Intermediate itch and Verified 11/23/24 15:35 burn Family History Mother Hypertension CVA (cerebral vascular accident) Father Hypertension CVA (cerebral vascular accident) Surgical History Status post left hip replacement History of esophagogastroduodenoscopy (EGD) Hx of elbow surgery History of foot surgery Hx of tubal ligation S/P foot surgery, right History of appendectomy History of cholecystectomy Social History household members: spouse Smoking Status: Former smoker alcohol intake: never substance use type: does not use ROS ROS ED ROS Narrative Generalized weakness Constitutional Constitutional ED: Denies chills or weight loss Eyes Eyes: Denies change in vision or diplopia ENT ENT ED: Denies ear pain, rhinorrhea or sore throat Cardiovascular Cardiovascular: Denies chest pain, orthopnea, palpitations or racing heartbeat Respiratory/Chest Respiratory/Chest: Denies cough, dyspnea or orthopnea Gastrointestinal Gastrointestinal: Denies abdominal pain, diarrhea, nausea or vomiting Genitourinary Genitourinary ED: Denies dysuria, hematuria or urinary frequency Musculoskeletal Musculoskeletal: Denies arthralgias or myalgias Integumentary Denies abscess or rash Neurologic Neurologic: Denies headache(s) or weakness Psychiatric Psychiatric: Denies anxiety, depression, suicidal ideation or suicidal thoughts Endocrine Endocrinology: Denies polydipsia, polyphagia or polyuria Allergic/Immunologic Allergic/Immunologic ED: Denies mouth swelling, tongue swelling or urticaria EXAM Physical Exam Const Vital Signs: 11/23/24 15:34 11/23/24 15:35 11/23/24 15:35 Temperature 97.3 F L Temperature Source Oral Pulse Rate 58 L Pulse Rate [Lying] Pulse Rate [Standing (for 1 minute prior to obtaining)] Respiratory Rate 18 Respiratory Pattern Normal Blood Pressure 74/42 L Blood Pressure [Lying] Blood Pressure [Sitting (for 1 minute prior to obtaining)] Blood Pressure [Standing (for 1 minute prior to obtaining)] Blood Pressure Mean 52 Blood Pressure Mean [Lying] Blood Pressure Mean [Sitting (for 1 minute prior to obtaining)] Blood Pressure Mean [Standing (for 1 minute prior to obtaining)] Pulse Ox 93 Oxygen Delivery Method Room Air 11/23/24 16:23 11/23/24 17:00 11/23/24 17:54 Temperature Temperature Source Pulse Rate 57 L 58 L Pulse Rate [Lying] 60 Pulse Rate [Standing (for 1 minute prior to obtaining)] 64 Respiratory Rate 14 Respiratory Pattern Blood Pressure 107/85 H 103/72 Blood Pressure [Lying] 121/79 H Blood Pressure [Sitting (for 1 minute prior to obtaining)] 115/92 H Blood Pressure [Standing (for 1 minute prior to obtaining)] 123/80 H Blood Pressure Mean 92 82 Blood Pressure Mean [Lying] 93 Blood Pressure Mean [Sitting (for 1 minute prior to obtaining)] 99 Blood Pressure Mean [Standing (for 1 minute prior to obtaining)] 94 Pulse Ox 96 95 Oxygen Delivery Method Room Air Room Air 11/23/24 17:55 11/23/24 18:52 11/23/24 18:53 Temperature 97.3 F L Temperature Source Pulse Rate 64 58 L Pulse Rate [Lying] Pulse Rate [Standing (for 1 minute prior to obtaining)] Respiratory Rate 21 H 18 Respiratory Pattern Blood Pressure 123/80 H 138/80 H 138/80 H Blood Pressure [Lying] Blood Pressure [Sitting (for 1 minute prior to obtaining)] Blood Pressure [Standing (for 1 minute prior to obtaining)] Blood Pressure Mean 94 99 99 Blood Pressure Mean [Lying] Blood Pressure Mean [Sitting (for 1 minute prior to obtaining)] Blood Pressure Mean [Standing (for 1 minute prior to obtaining)] Pulse Ox 94 96 Oxygen Delivery Method Room Air Positive well nourished and well developed General Appearance ED: well developed HEENT Reports normocephalic, head/scalp atraumatic and moist mucous membranes Eyes PERRL and EOMs intact bilaterally Neck no lymphadenopathy, supple and no JVD Resp normal respiratory effort and clear to auscultation bilaterally Cardio regular rate, regular rhythm and no murmurs Rate: bradycardia GI normal to inspection, nondistended, normoactive bowel sounds and non-tender Palpation: soft Back/Spine no CVA tenderness and normal ROM Extremity normal to inspection General Extremety ED: Negative for edema General Extremity: Negative for edema Neuro oriented x3 and CN's II-XII intact bilaterally Sensorium / Orientation: alert Motor Exam: strength 5/5 throughout Psych mental status grossly normal Mood & Affect: Negative for depressed or tearful Skin no rashes or lesions noted and no wounds MDM MDM MDM Narrative Medical decision making narrative: Differential diagnosis includes medication reaction anemia sepsis UTI acute kidney injury dehydration acute coronary syndrome My independent interpretation chest x-ray is no acute process. 2 sets of cardiac enzymes are 26 and 21. Hemoglobin is 10.3 with a white count of 6.4. Patient received IV fluids. Her blood pressure has been normal over the past several hours. She is not orthostatic. Family is in the room and we talked about her symptomatology and the state that their grandmother is at her baseline. Patient states she would like to be discharged home to eat. We talked about taking a look at her medications that perhaps she accidentally took additional blood pressure medication which she states is a very big possibility. Family is going to assist her with this. Patient notes that her daughter used to help her with this family states that they will assist her. History & Record Review Discussion w/independent historian: Patient and Family Lab Data Attestation: I reviewed the patient's lab results. Labs: Laboratory Results - last 24 hr 11/23/24 11/23/2411/23/25 15:45 16:55 17:45 WBC 6.4 RBC 3.26 L Hgb 10.3 L Hct 31.3 L MCV 96.0 MCH 31.6 MCHC 32.9 RDW Std Deviation 47.3 H RDW Coeff of Stevie 13.2 Plt Count 264 MPV 9.4 Immature Gran % (Auto) 0.500 Neut % (Auto) 64.1 Lymph % (Auto) 25.3 Snyder % (Auto) 6.9 Eos % (Auto) 2.3 Baso % (Auto) 0.9 Absolute Neuts (auto) 4.1 Absolute Lymphs (auto) 1.62 Nucleated RBC % 0 Sodium 138 Potassium 5.0 Chloride 106 Carbon Dioxide 21.7 Anion Gap 11 BUN 27 H Creatinine 1.26 H Estim Creat Clear Calc 36.62 L Est GFR (MDRD) Non-Af 43 L BUN/Creatinine Ratio 21.1 H Glucose 108 H Lactic Acid 1.5 Calcium 8.6 Total Bilirubin 0.28 Direct Bilirubin 0.11 AST 20 ALT 9 Alkaline Phosphatase 62 Troponin T High Sens 26 H Troponin T Hi Sens 2 Hr 21 H Total Protein 6.3 Albumin 3.6 Globulin 2.7 Urine Color Yellow Urine Clarity Sl. Cloudy Urine pH 6.0 Ur Specific [place] 1.015 Urine Protein 30 H Urine Glucose (UA) Normal Urine Ketones 5 H Urine Occult Blood Negative Urine Nitrite Negative Urine Bilirubin Negative Urine Urobilinogen Normal Ur Leukocyte Esterase 25 H Urine RBC 0 SEEN Urine WBC 0-5 SEEN Ur Squamous Epith Cells 0-5 SEEN Urine Bacteria 0 SEEN Urine Mucus 0 SEEN Radiography Diagnostic Testing: Clinical Impression(s) from Imaging Studies Chest X-Ray 11/23/24 16:13 IMPRESSION: No Acute Findings. Reading Location: [facility] EKG Initial EKG: Attestation: I personally reviewed and interpreted this EKG as follows: Comments: Sinus bradycardia ventricular rate of 57 bpm Discharge Plan Triage Chief Complaint: Hypotension ED Provider: Stephon Michelle Dx/Rx/DC Orders Clinical Impression: Acute hypotension, Sinus bradycardia, Malaise Instructions: ED Low Blood Pressure, All Causes Prescriptions: No Action levocetirizine 5 mg tablet 5 mg PO DAILY Trelegy Ellipta 100-62.5-25 mcg blister with device 1 inh inhalation DAILY polysaccharide iron complex [Ferrex 150] 150 mg iron Capsule 150 mg PO DAILY 30 Days Qty: 30 0RF sennosides-docusate sodium [Stimulant Laxative Plus] 8.6-50 mg Tablet 2 tab PO BID 30 Days Qty: 120 0RF ascorbic acid (vitamin C) 500 mg Tablet 500 mg PO BREAKFAST Qty: 0 0RF ipratropium bromide 42 mcg (0.06 %) [place],Non-Aerosol 2 spray NASAL BID 30 Days Qty: 15 0RF omeprazole 40 mg capsule,delayed release(DR/EC) 40 mg PO QHS citalopram 20 mg tablet 20 mg PO DAILY acetaminophen 500 mg Tablet 1,000 mg PO TID Qty: 0 0RF folic acid 1 mg Tablet 1 mg PO BREAKFAST 14 Days Qty: 14 0RF Rx Instructions: Take due to postoperative anemia and see primary care provider for chronic management. tramadol 50 mg tablet 50 mg PO BID PRN (Reason: pain) levothyroxine 75 mcg tablet 75 mcg PO DAILY tizanidine 4 mg tablet 4 mg PO DAILY PRN (Reason: muscle spasticity) aspirin 81 mg Tablet,Delayed Release (Dr/Ec) 81 mg PO DAILY baclofen 10 mg Tablet 10 mg PO TID PRN (Reason: Muscle Spasm) oxycodone 5 mg Tablet 5 - 10 mg PO Q6H PRN (Reason: Pain Score 5-10) metoprolol tartrate 25 mg tablet 25 mg PO BID Primary Care Provider: Rancho Knott Chi Referrals: Rancho Knott Chi, MD [Primary Care Provider] - As Needed Print Language: [place] Disposition Disposition: Home, Self Care
[2024-11-23] MEDS: 0.9% Normal Saline (1000mL) 1,000 ML 1000 ML IV (15:46)
[2024-11-23 16:02] LABS: Absolute Lymphocyte Count 1.62 X10^3/uL (0.83-4.51); Absolute Neutrophil Count 4.1 X10^3/uL (2.0-7.7); Basophil# 0.06 X10^3/uL; Basophil% 0.9 % (0-1); Eosinophil# 0.15 X10^3/uL; Eosinophils% 2.3 % (0-5); Hematocrit 31.3 % (37-47); Hemoglobin 10.3 g/dL (12.0-15.0); Lymphocyte # 1.62 X10^3/ul (0.83-4.51); Lymphocyte % 25.3 % (19-41); Mean Corp Hgb Conc 32.9 g/dL (32-36); Mean Corpuscular Hgb 31.6 pg (27.0-32.0); Mean Platelet Vol. 9.4 fl (6.2-12.0); Monocyte# 0.44 X10^3/uL; Monocyte% 6.9 % (0-10); NRBC Flagged by Analyzer 0 % (0-5); Neutrophil % 64.1 % (47-70); Platelet Count 264 K/mm3 (150-450); RBC Distribution Width CV 13.2 % (11.6-14.6); RBC Distribution Width SD 47.3 fl (35.1-43.9); Red Blood Count 3.26 M/mm3 (4.2-5.4); White Blood Count 6.4 K/mm3 (4.4-11.0)
--- NOTE | 2024-11-23 16:13 | RAD_ITS ---
PROCEDURE: CHEST 1 VIEW (PORTABLE) 11/23/2024 REASON FOR EXAM: HYPOTENSION TECHNIQUE: Frontal view of the chest. COMPARISON: None FINDINGS: Hardware: None Heart: The heart size is normal. Atherosclerotic calcification of the thoracic aorta. Lungs: Mild bibasilar atelectasis. No focal consolidation. No pneumothorax. No pleural effusion. Bones: Degenerative changes are identified within the thoracic spine. Other: RAD/Chest 1 View (Portable) IMPRESSION: No Acute Findings. Reading Location: [facility]
[2024-11-23 16:34] LABS: Lactic Acid 1.5 mmol/L (0.0-2.0)
[2024-11-23 16:38] LABS: AST(SGOT) 20 U/L (<=31); Alanine Aminotransfer ALT/SGPT 9 U/L (<=34); Albumin, Serum 3.6 g/dL (3.4-4.8); Alkaline Phosphatase 62 U/L (35-104); Anion Gap 11 (5-15); BUN 27 mg/dL (4-19); BUN/Creat Ratio 21.1 RATIO (10-20); Bilirubin, Direct 0.11 mg/dL (0.00-0.30); Calcium,Total 8.6 mg/dL (7.6-11.0); Carbon Dioxide 21.7 mmol/L (21.0-32.0); Chloride 106 mmol/L (98-108); Creatinine, Serum 1.26 mg/dL (0.70-1.20); EST Glomerular Filtration Rate 43 (>60); Estimated Creatinine Clearance 36.62 ml/min (50-250); Globulin 2.7 g/dL (2.2-4.2); Glucose 108 mg/dL (70-99); Protein, Total 6.3 g/dL (5.9-8.4); Sodium Level 138 mmol/L (133-145); Total Bilirubin 0.28 mg/dL (0.00-1.30); Troponin T High Sensitivity 26 ng/L (<=14)
[2024-11-23 17:00] LABS: Bacteria 0 SEEN /hpf (None Seen); Mucous, Urine 0 SEEN /hpf (<or=2+); Red Blood Cells-Urine 0 SEEN /hpf (0-5)
[2024-11-23 17:19] LABS: Color, Urine Yellow (Yellow); Glucose, Dipstick Normal (Normal); Ketone-Dipstick 5 mg/dl (Negative); Leukocyte Esterase-Dipstick 25 /ul (Negative); Nitrite-Dipstick Negative (Negative); Occult Blood-Urine Negative /ul (Negative); Protein-Dipstick 30 mg/dl (Negative); Specific Gravity, Urine 1.015 (1.002-1.030); Urine Bilirubin Dipstick Negative (Negative); Urine Clarity Sl. Cloudy (Clear); Urine Urobilinogen Normal (Normal)
[2024-11-23 17:44] LABS: Squamous Epithelial Cells - UA 0-5 SEEN /hpf (5-10); White Blood Cells 0-5 SEEN /hpf (0-5)
[2024-11-23 18:16] LABS: Troponin T High Sens 2 HR 21 ng/L (<=14)
== END 2024-11-23 19:09 | disposition home or self-care (01) ==
PROVIDERS: Emergency Provider Emergency Medicine; PCP Family Medicine Geriatric Medicine; Visit Provider Emergency Medicine
DX: I95.9 Hypotension, unspecified (principal); J44.9 Chronic obstructive pulmonary disease, unspecified; R00.1 Bradycardia, unspecified; R53.81 Other malaise; I10 Essential (primary) hypertension; F32.A Depression, unspecified; F41.9 Anxiety disorder, unspecified; K21.9 Gastro-esophageal reflux disease without esophagitis; E03.9 Hypothyroidism, unspecified; Z88.0 Allergy status to penicillin; Z79.51 Long term (current) use of inhaled steroids; Z79.82 Long term (current) use of aspirin; Z86.718 Personal history of other venous thrombosis and embolism; Z79.890 Hormone replacement therapy; Z79.899 Other long term (current) drug therapy; Z87.891 Personal history of nicotine dependence
CPT/HCPCS: 71045; 80048; 80076; 81001; 83605; 84484; 85025; 93005; 96360; 99285; A4216

== ENCOUNTER → 2025-03-02 | Outpatient (CLI) | payer MEDICARE, SELFPAY ==
[2025-03-02 09:18] LABS: Hematocrit 39.1 % (37-47); Hemoglobin 12.8 g/dL (12.0-15.0); Immature Granulocytes Count 0.030 X10^3/uL (0.0-0.0); Mean Corp Hgb Conc 32.7 g/dL (32-36); Mean Corpuscular Volume 94.2 fL (81-99); Mean Platelet Vol. 9.3 fl (6.2-12.0); NRBC Flagged by Analyzer 0 % (0-5); Platelet Count 275 K/mm3 (150-450); RBC Distribution Width CV 13.7 % (11.6-14.6); RBC Distribution Width SD 47.3 fl (35.1-43.9); Red Blood Count 4.15 M/mm3 (4.2-5.4); White Blood Count 6.4 K/mm3 (4.4-11.0)
[2025-03-02 10:26] LABS: AST(SGOT) 22 U/L (<=31); Alanine Aminotransfer ALT/SGPT 12 U/L (<=34); Albumin, Serum 4.1 g/dL (3.4-4.8); Alkaline Phosphatase 79 U/L (35-104); Anion Gap 12 (5-15); BUN 24 mg/dL (4-19); BUN/Creat Ratio 20.6 RATIO (10-20); Calcium,Total 9.4 mg/dL (7.6-11.0); Carbon Dioxide 23.4 mmol/L (21.0-32.0); Chloride 104 mmol/L (98-108); Cholesterol 237 mg/dL (<=200); Globulin 3.4 g/dL (2.2-4.2); Glucose 107 mg/dL (70-99); Low Density Lipoprotein Calc. 150 mg/dL; Potassium 4.7 mmol/L (3.3-5.1); Triglycerides 247 mg/dL; Very Low Density Lipoprotein 49 mg/dL (5-40); cholesterol:hdl ratio screen 6.22
[2025-03-02 10:30] LABS: Vitamin D,25 Hydroxy 27.4 ng/mL (30-100)
[2025-03-02 17:08] LABS: Xtra Tube Kwok EXTRA TUBE
--- OUTSIDE RECORDS SUMMARY | 2025-03-02 18:39 | XMS RPT_ITS | CCD ---
Author Organization [facility] Care Team Providers Care Supervisor Water Softener Service Name Role Phone Nikos, Dr. Rancho Eason Primary Care Provider Nikos, Dr. Rancho Eason Referring Provider 1([facility])[phone] Catie, Dr. Bentley Attending Provider 1([facility]) 25 Dr. Good Franco Attending Provider 1([facility])[phone] Nikos, Dr. Rancho Eason Primary Care Provider 1([facility])[phone] Nikos, Dr. Rancho Eason Referring Provider 1([facility])[phone] Catie, Dr. Bentley Attending Provider 1([facility]) 25 Dr. Cody Peng Attending Provider 1([facility])-[phone] Nikos, Dr. Rancho Eason Primary Care Provider 1([facility])[phone] Nikos, Dr. Rancho Eason Referring Provider 1([facility])[phone] Nikos, Dr. Rancho Eason Primary Care Provider 1([facility])[phone] Nikos, Dr. Rancho Eason Referring Provider 1([facility])[phone] Torito AUTO TIRE RECAPPER, AUTO TIRE RECAPPER-C Kanchan Attending Provider Catie, Dr. Bentley Attending Provider 1([facility]) 25 Nikos, Dr. Rancho Eason Primary Care Provider 1([facility])[phone] Nkios, Dr. Rancho Eason Referring Provider Catie, Dr. Bentley Attending Provider 1([facility]) 25 Nikos, Dr. Rancho Eason Primary Care Provider 1([facility])[phone] Nikos, Dr. Rancho Eason Referring Provider 1([facility])[phone] Torito AUTO TIRE RECAPPER, AUTO TIRE RECAPPER-C Kanchan Attending Provider Nikos, Dr. Rancho Eason Primary Care Provider 1([facility])[phone] Nikos, Dr. Rancho Eason Referring Provider 1([facility])[phone] Roof AUTO TIRE RECAPPER, AUTO TIRE RECAPPER-Collin Hargrove Attending Provider Nikos, Dr. Rancho Eason Primary Care Provider Nikos, Dr. Rancho Eason Referring Provider Roof AUTO TIRE RECAPPER, AUTO TIRE RECAPPER-Collin Hargrove Attending Provider Nikos, Dr. Rancho Eason Primary Care Provider Nikos, Dr. Rancho Eason Referring Provider Ginette, Dr. Ross Attending Provider Nikos, Dr. Rancho Eason Primary Care Provider Nikos, Dr. Rancho Eason Referring Provider Ginette, Dr. Ross Attending Provider [phone] Nikos MACHUCA, Dr. Rancho Eason Primary Care Provider Nikos MACHUCA, Dr. Rancho Eason Referring Provider Rosaura Deleon Attending Provider Nikos MACHUCA, Dr. Rancho Eason Attending Provider Gorge MACHUCA, Dr. López Admit Provider [phone] Gorge MACHUCA, Dr. López Referring Provider Gorge MACHUCA, Dr. López Other Provider Georgina MACHUCA, Dr. Pk Dang Attending Provider Georgina MACHUCA, Dr. Pk Dang Other Provider Damian MACHUCA, Dr. Reina Cardenas Attending Provider Gorge MACHUCA, Dr. López Attending Provider Nikos MACHUCA, Dr. Rancho Eason Admit Provider Dr. Stephon Michelle DO Emergency Provider Nikos, Rancho Chi Primary Care Unavailable Alondra Rm Referring Unavailable Alondra Rm Admitting Unavailable Pk Erickson Attending Unavailable Pk Erickson Consulting Unavailable Alondra Rm Consulting Unavailable Nikos, Rancho Chi Referring Unavailable Nikos, Rancho Chi Primary Care Unavailable Rosaura Deleon Attending Unavail able Koram, Reina Theresa Attending Unavailable Nikos, Rancho Chi Attending Unavailable Nikos, Rancho Chi Referring Unavailable Nikos, Rancho Chi Primary Care Unavailable Nikos, Rancho Chi Admitting Unavailable Nikos, Rancho Chi Primary Care Unavailable Basali, Ayman Attending Unavailable Basali, Ayman Referring Unavailable Nikos, Rancho Chi Primary Care Unavailable Basali, Ayman Attending Unavailable Basali, Ayman Referring Unavailable Nikos, Rancho Chi Attending Unavailable Nikos, Rancho Chi Referring Unavailable Nikos, Rancho Chi Primary Care Unavailable Nikos, Rancho Chi Referring Unavailable Nikos, Rancho Chi Primary Care Unavailable Nikos, Rancho Chi Attending Unavailable Stephon Michelle Attending Unavailable Nikos, Rancho Chi Primary Care Unavailable Gorge, Alondra Referring Unavailable Koram, Reina Theresa Attending Unavailable Nikos, Rancho Chi Primary Care Unavailable Gorge, Alondra Admitting Unavailable Kotsonis Pk F Consulting Unavailable Gorge, Alondra Consulting Unavailable Mosteller, Dion Admitting Unavailable Nikos, Rancho Chi Primary Care Unavailable Kotsonis Pk F Attending Unavailable Mosteller, Dion Consulting Unavailable Gorge, Alondra Consulting Unavailable Kotsonis, Pk F Consulting Unavailable Mosteller, Dion Attending Unavailable Nikos, Rancho Chi Primary Care Unavailable Zeyad Husain Attending Unavailable Nikos, Rancho Chi Primary Care Unavailable Nikos, Rancho Chi Attending Unavailable Nikos, Rancho Chi Primary Care Unavailable Basali, Ayman Attending Unavailable Nikos, Rancho Chi Attending Unavailable Nikos, Rancho Chi Primary Care Unavailable Nikos, Rancho Chi Primary Care Unavailable GuillermotsonisNelsonPk F Attending Unavailable Mosteller, Dion Admitting Unavailable Mosteller, Dion Consulting Unavailable Gorge, Alondra Consulting Unavailable Gorge, Alondra Attending Unavailable Nikos, Rancho Chi Primary Care Unavailable Gorge, Alondra Referring Unavailable Gorge, Alondra Admitting Unavailable Kotsonis, Pk F Consulting Unavailable Nikos, Rancho Chi Attending Unavailable Nikos, Rancho Chi Admitting Unavailable Nikos, Rancho Chi Primary Care Unavailable Sidney Lawson Attending Unavailable Nikos, Rancho Chi Referring Unavailable Nikos, Rancho Chi Primary Care Unavailable Nikos , Dr. Rancho Eason Primary Care Provider Dr. Rancho Matthew MD, Chi Referring Provider Dr. Stephon Michelle DO Attending Provider [phone] Allergies Allergy Classification Reported Allergen(s) Allergy Type Date of Onset Reaction(s) Facility (16 sources) HYDROcodone Drug Allergy 1 Nausea [facility] (20 sources) Penicillins; Translations: [Penicillins] Allergy to substance 1 facial swelling [facility] (3 sources) Latex Allergy to substance 5 itch and burn [facility] (1 source) HYDROcodone Drug Allergy 4 [facility] (1 source) Latex Drug allergy (disorder) 5 [facility] Medications Current Medications Medication Drug Class(es) Dates Sig (Normalized) Sig (Original) acetaminophen 500 mg oral tablet (6 sources) Start: 10-03-2024 take 2 tablets by mouth three times daily Acetaminophen 500 mg Tablet Active 1000 mg PO THREE TIMES A DAY 0 October 03, 2024 1:00am Start: 03-25-2024 End: 10-21-2024 take 2 tablets by mouth every eight hours Acetaminophen 500 mg Tablet Discontinued 1000 mg PO EVERY 8 HOURS 0 March 25, 2024 12:00am October 21, 2024 7:35pm ascorbic acid 500 mg oral tablet (3 sources) Vitamin C Start: 10-21-2024 take 1 tablet by mouth at breakfast Ascorbic Acid (Vitamin C) 500 mg Tablet Active 500 mg PO WITH BREAKFAST 0 October 21, 2024 12:00am aspirin 81 mg delayed release oral tablet (20 sources) Platelet Aggregation Inhibitor, Nonsteroidal Anti-inflammatory Drug Start: 11-23-2024 take 1 tablet by mouth once daily Aspirin 81 mg Tablet,Delayed Release (Dr/Ec) Active 81 mg PO DAILY November 23, 2024 12:00am Start: 10-21-2024 End: 11-23-2024 take 1 tablet by mouth twice daily at mealtime Aspirin 81 mg Tablet,Delayed Release (Dr/Ec) Discontinued 81 mg PO TWICE DAILY WITH MEALS 0 October 21, 2024 12:00am November 23, 2024 3:51pm Start: 03-25-2024 End: 10-21-2024 take 1 tablet by mouth once daily at mealtime Aspirin 81 mg Tablet,Delayed Release (Dr/Ec) Discontinued 81 mg PO DAILY WITH MEALS 0 March 25, 2024 12:00am October 21, 2024 7:36pm On Hold: Resume on 10/14/24. Will resume aspirin 81 mg 2 times daily following 2 weeks of Xarelto postoperatively. Start: 12-27-2022 End: 03-25-2024 Aspirin 325 mg tablet,delaye d release (DR/EC) Discontinued 81 mg PO TWICE A DAY December 27, 2022 1:09pm March 25, 2024 9:21pm Start: 12-27-2022 take 81 mg by mouth twice adolph y Aspirin Active 81 MG PO TWICE A DAY December 27, 2022 1:09pm Start: 12-21-2021 End: 12-27-2022 Aspirin 325 mg tablet,delaye d release (DR/EC) Discontinued 81 mg PO DAILY July 12, 2022 6:20pm December 27, 2022 1:09pm Start: 12-21-2021 End: 12-27-2022 take 81 mg by mouth once daily Aspirin Discontinued 81 MG PO DAILY July 12, 2022 6:20pm December 27, 2022 1:09pm Start: 07-20-2020 End: 12-21-2021 take 2 tablets by mouth once daily as needed for headache Aspirin 325 MG tablet Discontinued 650 mg PO DAILY NEEDED as needed for Headache July 20, 2020 1:00am December 21, 2021 1:19pm Start: 07-20-2020 End: 12-21-2021 take 650 mg by mouth once daily as needed Aspirin Discontinued 650 MG PO DAILY NEEDED July 20, 2020 1:00am December 21, 2021 1:19pm citalopram 20 mg oral tablet (3 sources) Serotonin Reuptake Inhibitor Start: 03-09-2024 take 1 tablet by mouth once daily Citalopram 20 mg tablet Active 20 mg PO DAILY March 09, 2024 12:00am Fluticasone-Umecli din-Vilanter (12 sources) Anticholinergic, Corticosteroid, beta2-Adrenergic Agonist Start: 12-27-2022 Fluticasone-Umecli din-Vilanter (Trelegy Ellipta) 100-62.5-25 mcg blister with device Active 1 NMA INHALATION DAILY December 27, 2022 12:00am Start: 12-27-2022 Fluticasone-Um eclidin-Vilanter (Trelegy Ellipta) 100-62.5-25 mcg blister with device Active 1 INH INHALATION DAILY December 26, 2022 11:00pm Start: 12-27-2022 Fluticasone-Um eclidin-Vilanter (Trelegy Ellipta) 100-62.5-25 mcg blister with device Active 1 INH INHALATION DAILY December 27, 2022 12:00am folic acid 1 mg oral tablet (3 sources) Start: 10-03-2024 take 1 tablet by mouth at breakfast Folic Acid 1 mg Tablet Active 1 mg PO WITH BREAKFAST 14 October 03, 2024 1:00am Take due to postoperative anemia and see primary care provider for chronic management. ipratropium bromide 0.042 mg/actuat metered dose nasal spray (3 sources) Anticholinergic Start: 10-21-2024 Ipratropium [place] 42 mcg (0.06 %) Bailey,Non-Aerosol Active 2 NMA NASAL TWICE A DAY October 21, 2024 12:00am levocetirizine dihydrochloride 5 mg oral tablet (19 sources) Histamine-1 Receptor Antagonist Start: 04-06-2020 take 1 tablet by mouth once daily Levocetirizine 5 mg tablet Active 5 mg PO DAILY April 06, 2020 12:00am levothyroxine sodium 0.075 mg oral tablet (20 sources) l-Thyroxine Start: 11-23-2024 take 1 tablet by mouth once daily Levothyroxine 75 mcg tablet Active 75 ug PO DAILY November 23, 2024 12:00am Start: 06-21-2022 End: 11-23-2024 Levothyroxine 50 mcg tablet Discontinued 75 ug PO DAILY June 21, 2022 2:02pm November 23, 2024 3:43pm Start: 06-21-2022 take 75 ug by mouth once daily Levothyroxine Active 75 MCG PO DAILY June 21, 2022 2:02pm Start: 02-10-2021 End: 06-21-2022 take 1 tablet by mouth once daily Levothyroxine 50 mcg tablet Discontinued 50 ug PO DAILY February 10, 2021 12:00am June 21, 2022 2:03pm metoprolol tartrate 25 mg oral tablet (20 sources) beta-Adrenergic Kvng Start: 11-23-2024 take 1 tablet by mouth twice daily Metoprolol Tartrate 25 mg tablet Active 25 mg PO TWICE A DAY November 23, 2024 12:00am Start: 10-03-2024 End: 11-23-2024 Metoprolol Tartrate 25 mg ta blet Discontinued 12.5 mg PO TWICE A DAY October 03, 2024 1:00am November 23, 2024 3:51pm Start: 12-21-2021 End: 10-03-2024 take 1 tablet by mouth twice daily Metoprolol Tartrate 25 mg tablet Discontinued 25 mg PO TWICE A DAY June 04, 2024 7:54am October 03, 2024 12:25pm omeprazole 40 mg delayed release oral capsule (3 sources) Proton Pump Inhibitor Start: 03-09-2024 take 1 capsule by mouth at bedtime Omeprazole 40 mg capsule,delayed release(DR/EC) Active 40 mg PO AT BEDTIME March 09, 2024 12:00am oxyCODONE hydrochloride 5 mg oral tablet (20 sources) Opioid Agonist Start: 10-21-2024 End: 11-23-2024 take 5-10 mg by mouth every six hours as needed for pain Oxycodone 5 mg Tablet Active 5 - 10 mg PO EVERY 6 HOURS as needed for Pain Score 5-10 November 23, 2024 12:00am Start: 10-03-2024 End: 10-21-2024 take 5-10 mg by mouth every four hours as needed for pain Oxycodone 5 mg Tablet Discontinued 5 - 10 mg PO EVERY 4 HOURS NEEDED as needed for As needed for pain control 42 7 October 03, 2024 October 21, 2024 7:38pm Start: 03-11-2024 End: 09-01-2024 take 1 tablet by mouth every four hours as needed for pain Oxycodone 5 mg Tablet Discontinued 5 mg PO EVERY 4 HOURS NEEDED as needed for Pain Score 6-10 Or Pre Pt/Ot 42 7 March 25, 2024 September 01, 2024 11:09am Start: 07-24-2020 End: 07-31-2020 take 1 tablet by mouth every eight hours as needed for pain Oxycodone 5 MG tablet Discontinued 5 mg PO EVERY 8 HOURS NEEDED as needed for Pain Score 6-10 20 7 July 24, 2020 July 30, 2020 1:00am July 31, 2020 1:03am polysaccharide iron complex 150 mg oral capsule (3 sources) Start: 10-21-2024 Polysaccharide Iron Complex (Ferrex 150) 150 mg iron Capsule Active 150 mg PO DAILY 30 October 21, 2024 12:00am tiZANidine 4 mg oral tablet (2 sources) Central alpha-2 Adrenergic Agonist Start: 11-23-2024 take 1 tablet by mouth once daily as needed Tizanidine 4 mg tablet Active 4 mg PO DAILY as needed for muscle spasticity November 23, 2024 12:00am traMADol hydrochloride 50 mg oral tablet (5 sources) Opioid Agonist Start: 11-23-2024 take 1 tablet by mouth twice daily as needed for pain Tramadol 50 mg tablet Active 50 mg PO TWICE A DAY as needed for pain November 23, 2024 12:00am Start: 03-25-2024 End: 10-21-2024 take 1 tablet by mouth every six hours as needed for pain Tramadol 50 mg Tablet Discontinued 50 mg PO EVERY 6 HOURS NEEDED as needed for Pain Score 1-5 Or Pre Pt/Ot 28 March 25, 2024 12:00am October 21, 2024 7:39pm On Hold: Do not take tramadol while taking oxycodone. Completed/Discontinued Medications Medication Drug Class(es) Dates Sig (Normalized) Sig (Original) acetaminophen 325 mg / HYDROcodone bitartrate 5 mg oral tablet (20 sources) Opioid Agonist Start: 03-09-2024 End: 03-25-2024 Hydrocodone-Acetami nophen 5-325 mg tablet Discontinued 1 {tbl} PO 3 TIMES DAILY NEEDED as needed for pain March 09, 2024 12:00am March 25, 2024 9:21pm Start: 03-25-2023 End: 08-16-2023 Hydrocodone-Acetaminophen 5- 325 mg tablet Discontinued 1 {tbl} PO AT BEDTIME as needed March 25, 2023 12:00am August 16, 2023 2:09pm Start: 03-25-2023 End: 08-16-2023 take 1 tablet by mouth at bedtime Hydrocodone-Acetaminophen Discontinued 1 TABLET PO AT BEDTIME March 25, 2023 12:00am August 16, 2023 2:09pm Start: 11-07-2020 End: 11-10-2020 Hydrocodone-Acetaminophen 1 TABLET tablet Discontinued 1 {tbl} PO EVERY 6 HOURS NEEDED as needed for Pain 10 3 November 07th, 2021 March 30th, 2021 12:00am November 10, 2020 12:03am Start: 11-07-2020 End: 11-10-2020 take 1 tablet by mouth every six hours as needed Hydrocodone-Acetaminophen Discontinued 1 TABLET PO EVERY 6 HOURS NEEDED 05 15November 07, 2020 November 10, 2020 12:03am acetaminophen 325 mg / oxyCODONE hydrochloride 5 mg oral tablet (3 sources) Opioid Agonist Start: 05-18-2024 End: 09-01-2024 Oxycodone-Acetaminophen (Endocet) 5-325 mg tablet Discontinued 1 {tbl} PO EVERY 6 HOURS as needed for pain 05 15May 18, 2024 September 01, 2024 11:10am albuterol 0.833 mg/ml / ipratropium bromide 0.167 mg/ml inhalation solution (19 sources) Anticholiner gic, beta2-Adrene rgic Agonist Start: 02-10-2021 End: 12-21-2021 take 1 mL by inhalation four times daily as needed Ipratropium-Albuterol 0.5 mg-3 mg(2.5 mg base)/3 mL solution for nebulization Discontinued 3 mL INHALATION 4 TIMES DAILY as needed for SOB February 10, 2021 12:00am December 21, 2021 1:19pm Start: 02-10-2021 End: 12-21-2021 take 1 mL by inhalation four times daily Ipratropium-Albuterol Discontinued 3 ML INHALATION 4 TIMES DAILY February 10, 2021 12:00am December 21, 2021 1:19pm apixaban 5 mg oral tablet (3 sources) Factor Xa Inhibitor Start: 10-03-2024 End: 10-21-2024 take 2.5 mg by mouth twice daily Apixaban (Eliquis) 5 mg Tablet Discontinued 2.5 mg PO TWICE A DAY 05 22October 03, 2024 1:00am October 21, 2024 7:35pm Take until 2 weeks postoperatively due to previous DVT. azithromycin 250 mg oral tablet (19 sources) Macrolide Antimicrobial Start: 06-24-2021 End: 12-21-2021 take 2-5 tablets by mouth once daily Azithromycin 250 mg tablet Discontinued 0 PO .COMPLEX June 24, 2021 1:00December 21, 2021 1:18pm take 500 mg today (day 1), then 250 mg for 4 days (days 2-5) PO baclofen 10 mg oral tablet (8 sources) gamma-Aminobutyric Acid-ergic Agonist Start: 03-09-2024 End: 11-23-2024 take 1 tablet by mouth three times daily as needed for muscle spasms Baclofen 10 mg Tablet Discontinued 10 mg PO 3 TIMES DAILY NEEDED as needed for Muscle Spasm 90 October 21, 2024 12:00am November 23, 2024 3:51pm benzonatate 100 mg oral capsule (19 sources) Non-narcotic Antitussive Start: 06-24-2021 End: 12-21-2021 take 2 capsules by mouth three times daily as needed for cough Benzonatate 100 mg capsule Discontinued 200 mg PO THREE TIMES A DAY as needed for cough June 24, 2021 1:00am December 21, 2021 1:18pm Start: 06-24-2021 End: 12-21-2021 take 200 mg by mouth three times daily Benzonatate Discontinued 200 MG PO THREE TIMES A DAY June 24, 2021 1:00am December 21, 2021 1:18pm cholecalciferol 0.025 mg oral capsule (19 sources) Vitamin D Start: 02-10-2021 End: 12-21-2021 take 1 capsule by mouth once daily Cholecalciferol (Vitamin D3) 25 mcg (1,000 unit) Capsule Discontinued 25 ug PO DAILY February 10, 2021 12:00am December 21, 2021 1:19pm docusate sodium 50 mg / sennosides, correction 8.6 mg oral tablet (9 sources) Start: 03-25-2024 End: 10-21-2024 Sennosides-Docusate Sodium (Stimulant Laxative Plus) 8.6-50 mg Tablet Discontinued 2 {tbl} PO TWICE A DAY as needed for constipation September 01, 2024 1:00am October 21, 2024 7:39pm doxycycline hyclate 100 mg oral capsule (11 sources) Tetracycline- class Drug Start: 03-25-2023 End: 04-01-2023 take 1 capsule by mouth twice daily Doxycycline Hyclate 100 mg capsule Discontinued 100 mg PO TWICE A DAY 14 March 25, 2023 12:00am March 31, 2023 12:00am April 01, 2023 12:03am ferrous sulfate 325 mg oral tablet (3 sources) Start: 10-03-2024 End: 10-21-2024 take 1 tablet by mouth once daily Ferrous Sulfate (Ferosul) 325 mg (65 mg iron) Tablet Discontinued 325 mg PO DAILY@1200 14 14 October 03, 2024 1:00am October 21, 2024 7:36pm Take due to postoperative anemia and see primary care provider for chronic management. predniSONE 10 mg oral tablet (11 sources) Start: 03-25-2023 End: 04-09-2023 Prednisone 10 mg tablet Discontinued 10 mg PO .COMPLEX 35 March 25, 2023 12:00am April 08, 2023 12:00am April 09, 2023 12:03am 10 mg orally; 40mg x5 days, 20mg x5 days, 10mg x5 days Start: 03-25-2023 End: 04-09-2023 Prednisone Discontinued 10 M G PO .COMPLEX 35 March 25, 2023 12:00am April 09, 2023 12:03am 10 mg orally; 40mg x5 days, 20mg x5 days, 10mg x5 days rivaroxaban 20 mg oral tablet (20 sources) Factor Xa Inhibitor Start: 12-21-2021 End: 07-12-2022 take 1 tablet by mouth once daily at dinner Rivaroxaban (Xarelto) 20 mg tablet Discontinued 20 mg PO DAILY January 03, 2022 2:10pm July 12, 2022 6:19pm must administer with evening meal Vitamin B Complex (16 sources) Start: 03-25-2021 End: 12-21-2021 take 1 tablet by mouth once daily Vitamin B Complex Discontinued 1 TABLET PO DAILY March 25, 2021 2:46pm December 21, 2021 1:19pm Start: 03-25-2021 take 1 tablet by lori once daily Vitamin B Complex Active 1 TABLET PO DAILY March 25, 2021 2:46pm Start: 03-25-2021 End: 12-21-2021 take 1 tablet by mouth once daily Vitamin B Complex Discontinued 1 TABLET PO DAILY March 24, 2021 11:00pm December 21, 2021 12:19pm Start: 03-25-2021 End: 12-21-2021 take 1 tablet by mouth once daily Vitamin B Complex Discontinued 1 TABLET PO DAILY March 25, 2021 12:00am December 21, 2021 1:19pm Vitamin B Complex Tablet (3 sources) Start: 03-25-2021 End: 12-21-2021 Vitamin B Complex Tablet Dis continued 1 {tbl} PO DAILY March 25, 2021 12:00am December 21, 2021 1:19pm Problems Active Problems Problem Classification Problem Date Documented Da te Episodic/Chronic Acute bronchitis (19 sources) Acute bronchitis; Translations: [Acute bronchitis, unspecified] 12-13-2021 Episodic Bacterial infection; unspecified site (19 sources) Infection due to Staphylococcus aureus; Translations: [Methicillin susceptible Staphylococcus aureus infection, unspecified site] 02-10-2021 Episodic Cardiac dysrhythmias (6 sources) Atrial fibrillation; Translations: [Unspecified atrial fibrillation] 10-03-2024 Chronic Cardiac dysrhythmias (20 sources) Palpitations; Translations: [Palpitations] Onset: 5 Episodic Chronic obstructive pulmonary disease and bronchiectasis (6 sources) Chronic obstructive lung disease; Translations: [Chronic obstructive pulmonary disease, unspecified] 03-11-2024 Chronic Conditions associated with dizziness or vertigo (7 sources) Dizziness; Translations: [Dizziness and giddiness] Onset: 5 10-01-2024 Episodic Deficiency and other anemia (3 sources) Anemia; Translations: [Anemia, unspecified] 10-03-2024 Episodic Deficiency and other anemia (1 source) Anemia, unspecified; Translations: [Anemia, unspecified] Onset: 5 Episodic E Codes: Fall (7 sources) Fall; Translations: [Unspecified fall, initial encounter] Onset: 4 04-05-2024 Episodic Esophageal disorders (6 sources) Gastroesophageal reflux disease; Translations: [Gastro-esophageal reflux disease without esophagitis] 10-03-2024 Chronic Comment on above: CONTROLLED WITH MED Essential hypertension (20 sources) Benign essential hypertension; Translations: [Essential (primary) hypertension] Onset: 5 Chronic Fracture of upper limb (8 sources) Closed fracture of humerus; Translations: [Unspecified fracture of shaft of humerus, left arm, initial encounter for closed fracture] Onset: 4 03-11-2024 Episodic Malaise and fatigue (9 sources) Asthenia; Translations: [Other malaise] Onset: 4 03-11-2024 Episodic Mood disorders (6 sources) Depressive disorder; Translations: [Depression] 10-03-2024 Chronic Comment on above: ON MED Nonspecific chest pain (19 sources) Chest pain; Translations: [Chest pain, unspecified] 05-04-2021 Episodic Open wounds of head; neck; and trunk (3 sources) Tear of skin; Translations: [Open wound(s) (multiple) of unspecified site(s), without mention of complication] 03-09-2024 Episodic Other aftercare (1 source) Aftercare following joint replacement surgery; Translations: [Aftercare following joint replacement surgery] Onset: 5 Chronic Other bone disease and musculoskeletal deformities (20 sources) Segmental and somatic dysfunction; Translations: [Segmental and somatic dysfunction of lumbar region] 07-10-2022 Episodic Other bone disease and musculoskeletal deformities (10 sources) Segmental and somatic dysfunction of lumbar region; Translations: [Nonallopathic lesions, lumbar region] Episodic Other bone disease and musculoskeletal deformities (10 sources) Segmental and somatic dysfunction of pelvic region; Translations: [Nonallopathic lesions, pelvic region] Episodic Other circulatory disease (2 sources) Low blood pressure; Translations: [Hypotension, unspecified] 11-23-2024 Episodic Other connective tissue disease (9 sources) History of repair of hip joint; Translations: [Presence of left artificial hip joint] 09-29-2024 Chronic Other connective tissue disease (1 source) Presence of left artificial hip joint; Translations: [Presence of left artificial hip joint] Onset: 5 Chronic Other connective tissue disease (19 sources) Pain in left lower limb; Translations: [Pain in left leg] 11-08-2020 Episodic Other injuries and conditions due to external causes (19 sources) Systemic inflammatory response syndrome; Translations: [Systemic inflammatory response syndrome (SIRS) of non-infectious origin without acute organ dysfunction] 02-10-2021 Episodic Other injuries and conditions due to external causes (3 sources) Injury of head; Translations: [Unspecified injury of head, initial encounter] 03-09-2024 Episodic Other non-traumatic joint disorders (1 source) Pain in left hip; Translations: [Pain in left hip] Onset: 5 Episodic Other upper respiratory disease (3 sources) Allergic rhinitis; Translations: [Allergic rhinitis, unspecified] 03-11-2024 Chronic Other upper respiratory infections (15 sources) Maxillary sinusitis; Translations: [Chronic maxillary sinusitis] 03-25-2023 Chronic Other upper respiratory infections (19 sources) Common cold; Translations: [Acute nasopharyngitis [common cold]] 12-13-2021 Episodic Phlebitis; thrombophlebitis and thromboembolism (20 sources) H/O: Deep vein thrombosis; Translations: [Personal history of other venous thrombosis and embolism] 12-13-2021 Episodic Comment on above: 2020 WITH COVID Pneumonia (except that caused by tuberculosis or sexually transmitted disease) (19 sources) Community acquired pneumonia; Translations: [Pneumonia, unspecified organism] 12-13-2021 Episodic Residual codes; unclassified (6 sources) Obstructive sleep apnea syndrome; Translations: [Obstructive sleep apnea (adult) (pediatric)] 10-03-2024 Chronic Residual codes; unclassified (3 sources) Sleep apnea; Translations: [Sleep apnea, unspecified] 09-01-2024 Chronic Residual codes; unclassified (6 sources) Insomnia; Translations: [Insomnia, unspecified] 10-03-2024 Episodic Spondylosis; intervertebral disc disorders; other back problems (20 sources) Degeneration of lumbar intervertebral disc; Translations: [Other intervertebral disc degeneration, lumbar region] Chronic Spondylosis; intervertebral disc disorders; other back problems (20 sources) Low back pain; Translations: [Low back pain] Onset: 4 Episodic Substance-related disorders (1 source) Opioid dependence, uncomplicated; Translations: [Opioid dependence, uncomplicated] Onset: 4 Chronic Superficial injury; contusion (7 sources) Contusion of finger; Translations: [Contusion of unspecified finger without damage to nail, initial encounter] Onset: 5 05-26-2024 Episodic Thyroid disorders (20 sources) Hypothyroidism; Translations: [Hypothyroidism, unspecified] 07-21-2020 Chronic Unclassified (3 sources) 6 weeks post op appt. Viral infection (19 sources) Disease caused by 2019-nCoV; Translations: [COVID-19] 12-13-2021 Episodic Past or Other Problems Problem Classification Problem Date Documented Da te Episodic/Chronic Other non-traumatic joint disorders (1 source) Pain in left shoulder; Translations: [Pain in left shoulder] Onset: 03-26-2024 Episodic Unclassified (16 sources) History of Right Foot Fracture 03-02-2022 Results Test Name Value Interpretation Reference Range Facility 12 Lead EKGon 11-23-2024 12 Lead EKG Normal [facility] Absolute lymphocyte countOrd ered By: Stephon Michelle on 11-23-2024 Lymphocytes Auto (Unsp spec) [#/Vol] 1.62 10*3/uL 0.83-4.51 [facility] Absolute neutrophil countOrd ered By: Stephon Michelle on 11-23-2024 Neutrophils (Bld) [#/Vol] 4.1 10*3/uL 2.0-7.7 [facility] Anion gap in Serum or Plasma Ordered By: Stephon Michelle on 11-23-2024 Anion gap [Moles/Vol] 11 mmol/L 5-15 [facility] Automated lymphocyte count a s percentage of total leukocytesOrdered By: Stephon Michelle on 11-23-2024 Lymphocytes/100 WBC Auto (Unsp spec) 25.3 % 19-41 [facility] BUN/creatinine ratioOrdered By: Stephon Michelle on 11-23-2024 Urea nitrogen/Creatinine [Mass ratio] 21.1 mg/mg High 10-20 [facility] Basic Metabolic Profile (BMP )on 11-23-2024 BUN/CRE 21.1 RATIO High - [facility] Comment on above: Performed By: #### L 100.0100, L500.2500, L501.4021, L500.3400, L503.6005 ####[facility] [address] [place], [address] Calcium [Mass/Vol] 8.6 mg/dL Normal 7.6-11.0 [facility] Comment on above: Performed By: #### L 100.0100, L500.2500, L501.4021, L500.3400, L503.6005 ####[facility] [address] [place], [address] Chloride [Moles/Vol] 106 mmol/L Normal 98-108 [facility] Comment on above: Performed By: #### L 100.0100, L500.2500, L501.4021, L500.3400, L503.6005 ####[facility] [address] [place], [address] CO2 [Moles/Vol] 21.7 mmol/L Normal 21.0-32.0 [facility] Comment on above: Performed By: #### L 100.0100, L500.2500, L501.4021, L500.3400, L503.6005 ####[facility] [address] [place], [address] Creatinine [Mass/Vol] 1.26 mg/dL High 0.70-1.20 [facility] Comment on above: Performed By: #### L 100.0100, L500.2500, L501.4021, L500.3400, L503.6005 ####[facility] [address] [place], [address] ECRCL 36.62 ml/min Low 50-250 [facility] Comment on above: Performed By: #### L 100.0100, L500.2500, L501.4021, L500.3400, L503.6005 ####[facility] [address] [place], [address] GAP 11 Normal 5-15 [facility] Comment on above: Performed By: #### L 100.0100, L500.2500, L501.4021, L500.3400, L503.6005 ####[facility] [address] [place], [address] GFR/1.73 sq M.predicted among non-blacks MDRD (S/P/Bld) [Vol rate/Area] 43 mL/min/{1.73_m2} Low >60 [facility] Comment on above: Result Comment: mL/m in/1.73m2 CKD-EPI Creatinine Equation (2020) Performed By: #### L 100.0100, L500.2500, L501.4021, L500.3400, L503.6005 ####[facility] [address] [place], [address] Glucose [Mass/Vol] 108 mg/dL High 70-99 [facility] Comment on above: Performed By: #### L 100.0100, L500.2500, L501.4021, L500.3400, L503.6005 ####[facility] [address] [place], [address] Potassium [Moles/Vol] 5.0 mmol/L Normal 3.3-5.1 [facility] Comment on above: Performed By: #### L 100.0100, L500.2500, L501.4021, L500.3400, L503.6005 ####[facility] [address] [place], [address] Sodium [Moles/Vol] 138 mmol/L Normal 133-145 [facility] Comment on above: Performed By: #### L 100.0100, L500.2500, L501.4021, L500.3400, L503.6005 ####[facility] [address] [place], [address] Urea nitrogen [Mass/Vol] 27 mg/dL High 4-19 [facility] Comment on above: Performed By: #### L 100.0100, L500.2500, L501.4021, L500.3400, L503.6005 ####[facility] [address] [place], [address] Basophil percentageOrdered B y: Stephon Michelle on 11-23-2024 Basophils/100 WBC (Bld) 0.9 % 0-1 [facility] Bilirubin Test strip Ql (U)O rdered By: Stephon Michelle on 11-23-2024 Bilirubin Ql (U) Negative Negative [facility] Bilirubin directOrdered By: Stephon Michelle on 11-23-2024 Bilirubin.direct [Mass/Vol] 0.11 mg/dL 0.00-0.30 [facility] Bilirubin, totalOrdered By: Stephon Michelle on 11-23-2024 Bilirubin [Mass/Vol] 0.28 mg/dL 0.00-1.30 [facility] CBC W/Diff, Automatedon 11-11 Absolute Lymph 1.62 X10 3/uL Normal 0.83-4.51 [facility] Comment on above: Performed By: #### L 100.0100, L500.2500, L501.4021, L500.3400, L503.6005 ####[facility] [address] [place], [address] Absolute Neut 4.1 X10 3/uL Normal 2.0-7.7 [facility] Comment on above: Performed By: #### L 100.0100, L500.2500, L501.4021, L500.3400, L503.6005 ####[facility] [address] [place], [address] Basophils/100 WBC (Bld) 0.9 % Normal 0-1 [facility] Comment on above: Performed By: #### L 100.0100, L500.2500, L501.4021, L500.3400, L503.6005 ####[facility] [address] [place], [address] Eosinophils/100 WBC (Bld) 2.3 % Normal 0-5 [facility] Comment on above: Performed By: #### L 100.0100, L500.2500, L501.4021, L500.3400, L503.6005 ####[facility] [address] [place], [address] Erythrocyte distribution width (RBC) [Ratio] 13.2 % Normal 11.6-14.6 [facility] Comment on above: Performed By: #### L 100.0100, L500.2500, L501.4021, L500.3400, L503.6005 ####[facility] [address] [place], [address] Hematocrit (Bld) [Volume fraction] 31.3 % Low 37-47 [facility] Comment on above: Performed By: #### L 100.0100, L500.2500, L501.4021, L500.3400, L503.6005 ####[facility] [address] [place], [address] Hemoglobin (Bld) [Mass/Vol] 10.3 g/dL Low 12.0-15.0 [facility] Comment on above: Performed By: #### L 100.0100, L500.2500, L501.4021, L500.3400, L503.6005 ####[facility] [address] [place], [address] IG% 0.500 Normal 0.0-0.9 [facility] Comment on above: Result Comment: IG% - Immature Granulocytes (promyelocytes, myelocytes andmetamyelocytes) > 1% indicates that a LEFT SHIFT is Present. Performed By: #### L 100.0100, L500.2500, L501.4021, L500.3400, L503.6005 ####[facility] [address] [place], [address] Lymphocytes/100 WBC (Bld) 25.3 % Normal 19-41 [facility] Comment on above: Performed By: #### L 100.0100, L500.2500, L501.4021, L500.3400, L503.6005 ####[facility] [address] [place], [address] MCH (RBC) [Entitic mass] 31.6 pg Normal 27.0-32.0 [facility] Comment on above: Performed By: #### L 100.0100, L500.2500, L501.4021, L500.3400, L503.6005 ####[facility] [address] [place], [address] MCHC (RBC) [Mass/Vol] 32.9 g/dL Normal 32-36 [facility] Comment on above: Performed By: #### L 100.0100, L500.2500, L501.4021, L500.3400, L503.6005 ####[facility] [address] [place], [address] MCV (RBC) [Entitic vol] 96.0 fL Normal 81-99 [facility] Comment on above: Performed By: #### L 100.0100, L500.2500, L501.4021, L500.3400, L503.6005 ####[facility] [address] [place], [address] Monocytes/100 WBC (Bld) 6.9 % Normal 0-10 [facility] Comment on above: Performed By: #### L 100.0100, L500.2500, L501.4021, L500.3400, L503.6005 ####[facility] [address] [place], [address] Neutrophils/100 WBC (Bld) 64.1 % Normal 47-70 [facility] Comment on above: Performed By: #### L 100.0100, L500.2500, L501.4021, L500.3400, L503.6005 ####[facility] [address] [place], [address] Nucleated RBC (Bld) [#/Vol] 0 10*3/uL Normal 0-5 [facility] Comment on above: Performed By: #### L 100.0100, L500.2500, L501.4021, L500.3400, L503.6005 ####[facility] [address] [place], [address] Platelet mean volume (Bld) [Entitic vol] 9.4 fL Normal 6.2-12.0 [facility] Comment on above: Performed By: #### L 100.0100, L500.2500, L501.4021, L500.3400, L503.6005 ####[facility] [address] [place], [address] Platelets (Bld) [#/Vol] 264 10*3/uL Normal 150-450 [facility] Comment on above: Performed By: #### L 100.0100, L500.2500, L501.4021, L500.3400, L503.6005 ####[facility] [address] [place], [address] RBC (Bld) [#/Vol] 3.26 10*6/uL Low 4.2-5.4 [facility] Comment on above: Performed By: #### L 100.0100, L500.2500, L501.4021, L500.3400, L503.6005 ####[facility] [address] [place], [address] RDW SD 47.3 fl High 35.1-43.9 [facility] Comment on above: Performed By: #### L 100.0100, L500.2500, L501.4021, L500.3400, L503.6005 ####[facility] [address] [place], [address] WBC (Bld) [#/Vol] 6.4 10*3/uL Normal 4.4-11.0 [facility] Comment on above: Performed By: #### L 100.0100, L500.2500, L501.4021, L500.3400, L503.6005 ####[facility] [address] [place], [address] Carbon dioxide, total [Moles /volume] in Central venous bloodOrdered By: Stephon Michelle on 11-23-2024 CO2 [Moles/Vol] 21.7 mmol/L 21.0-32.0 [facility] Chest 1 View (Portable)on Chest 1 View (Portable) Normal [facility] Chloride assayOrdered By: Andrew Michelle on 11-23-2024 Chloride [Moles/Vol] 106 mmol/L 98-108 [facility] Emergency Department Summary on 11-23-2024 Emergency Department Summary Normal [facility] Eosinophil percentageOrdered By: Stephon Michelle on 11-23-2024 Eosinophils/100 WBC (Bld) 2.3 % 0-5 [facility] Epithelial cells.squamous LM Ql (Urine sed)Ordered By: Stephon Michelle on 11-23-2024 Epithelial cells.squamous LM.HPF (Urine sed) [#/Area] 0 /[HPF] 5-10 [facility] Erythrocyte distribution wid th (RBC) [Ratio]Ordered By: Stephon Michelle on 11-23-2024 Erythrocyte distribution width (RBC) [Entitic vol] 47.3 fL High 35.1-43.9 [facility] Erythrocyte distribution wid th ratioOrdered By: Stephon Michelle on 11-23-2024 Erythrocyte distribution width (RBC) [Ratio] 13.2 % 11.6-14.6 [facility] Erythrocyte distribution wid th standard deviationOrdered By: Stephon Michelle on 11-23-2024 Erythrocyte distribution width (RBC) [Ratio] 47.3 fl High 35.1-43.9 [facility] Estimation of creatinine oj aranceOrdered By: Stephon Michelle on 11-23-2024 Estimated Creatinine Clearance Calc 36.62 ml/min Low 50-250 [facility] GFR/1.73 sq M.predicted clarence g non-blacks MDRD (S/P/Bld) [Vol rate/Area]Ordered By: Stephon Michelle on 11-23-2024 Estimated GFR (MDRD) Non-Af Amer 43 Low >60 [facility] Comment on above: mL/min/1.73m2 CKD-EP I Creatinine Equation (2020) Glomerular filtration rate ( GFR) estimation/1.73 sq m using serum, plasma, or whole bOrdered By: Stephon Michelle on 11-23-2024 GFR/1.73 sq M.predicted among non-blacks MDRD (S/P/Bld) [Vol rate/Area] 43 mL/min/{1.73_m2} Low >60 [facility] Comment on above: mL/min/1.73m2 CKD-EP I Creatinine Equation (2020) Glucose Ql (U)Ordered By: Andrew Michelle on 11-23-2024 Urine Glucose (UA) Normal mg/dl Normal [facility] Hematocrit Auto (Bld) [Volum e fraction]Ordered By: Stephon Michelle on 11-23-2024 Hematocrit (Bld) [Volume fraction] 31.3 % Low 37-47 [facility] Hemoglobin measurementOrdere d By: Stephon Michelle on 11-23-2024 Hemoglobin (Bld) [Mass/Vol] 10.3 g/dL Low 12.0-15.0 [facility] Immature granulocytes/100 WB C Auto (Bld)Ordered By: Stephon Michelle on 11-23-2024 Immature granulocytes/100 WBC (Bld) 0.500 % 0.0-0.9 [facility] Comment on above: IG% - Immature Granu locytes (promyelocytes, myelocytes and metamyelocytes) > 1% indicates that a LEFT SHIFT is Present. Ketones Test strip Ql (U)Ord ered By: Stephon Michelle on 11-23-2024 Ketones Ql (U) 5 mg/dl High Negative [facility] L499.0042on 11-23-2024 Trop T High Sen 21 ng/L High <=14 [facility] Comment on above: Performed By: #### L 499.0042 ####[facility] [address] [place], [address] L499.0043on 11-23-2024 Trop T High Sen Normal <=14 [facility] Comment on above: Result Comment: Canc elled via OM: Order cancelled - Patient discharged Performed By: #### L 499.0043 ####[facility] [address] [place], [address] L501.4021on 11-23-2024 Trop T High Sen 26 ng/L High <=14 [facility] Comment on above: Performed By: #### L 100.0100, L500.2500, L501.4021, L500.3400, L503.6005 ####[facility] [address] [place], [address] Laboratory - Chemistry and C hemistry - challengeOrdered By: Stephon Michelle on 11-23-2024 AST [Catalytic activity/Vol] 20 U/L <32 [facility] Lactic Acidon 11-23-2024 Lactate [Moles/Vol] 1.5 mmol/L Normal 0.0-2.0 [facility] Comment on above: Order Comment: Y Performed By: #### L 100.0100, L500.2500, L501.4021, L500.3400, L503.6005 ####[facility] [address] [place], [address] Lactic acid measurementOrder ed By: Stephon Michelle on 11-23-2024 Lactate [Moles/Vol] 1.5 mmol/L 0.0-2.0 [facility] Liver Profileon 11-23-2024 Albumin [Mass/Vol] 3.6 g/dL Normal 3.4-4.8 [facility] Comment on above: Performed By: #### L 100.0100, L500.2500, L501.4021, L500.3400, L503.6005 ####[facility] [address] [place], [address] ALK PHOS 62 U/L Normal 35-104 [facility] Comment on above: Performed By: #### L 100.0100, L500.2500, L501.4021, L500.3400, L503.6005 ####[facility] [address] [place], [address] ALT [Catalytic activity/Vol] 9 U/L Normal <=34 [facility] Comment on above: Performed By: #### L 100.0100, L500.2500, L501.4021, L500.3400, L503.6005 ####[facility] [address] [place], [address] AST [Catalytic activity/Vol] 20 U/L Normal <=31 [facility] Comment on above: Performed By: #### L 100.0100, L500.2500, L501.4021, L500.3400, L503.6005 ####[facility] [address] [place], [address] Bilirubin [Mass/Vol] 0.28 mg/dL Normal 0.00-1.30 [facility] Comment on above: Performed By: #### L 100.0100, L500.2500, L501.4021, L500.3400, L503.6005 ####[facility] [address] [place], [address] Bilirubin.direct [Mass/Vol] 0.11 mg/dL Normal 0.00-0.30 [facility] Comment on above: Performed By: #### L 100.0100, L500.2500, L501.4021, L500.3400, L503.6005 ####[facility] [address] [place], [address] Globulin (S) [Mass/Vol] 2.7 g/dL Normal 2.2-4.2 [facility] Comment on above: Performed By: #### L 100.0100, L500.2500, L501.4021, L500.3400, L503.6005 ####[facility] [address] [place], [address] T PROT 6.3 g/dL Normal 5.9-8.4 [facility] Comment on above: Performed By: #### L 100.0100, L500.2500, L501.4021, L500.3400, L503.6005 ####[facility] [address] [place], [address] Lymphocytes Auto (Unsp spec) [#/Vol]Ordered By: Stephon Michelle on 11-23-2024 Lymphocytes (Bld) [#/Vol] 1.62 10*3/uL 0.83-4.51 [facility] Lymphocytes/100 WBC Auto (Un sp spec)Ordered By: Stephon Michelle on 11-23-2024 Lymphocytes/100 WBC (Bld) 25.3 % 19-41 [facility] MCV (mean corpuscular volume ) determinationOrdered By: Stephon Michelle on 11-23-2024 MCV (RBC) [Entitic vol] 96.0 fL 81-99 [facility] Mean corpuscular hemoglobin (MCH) determinationOrdered By: Stephon Michelle on 11-23-2024 MCH (RBC) [Entitic mass] 31.6 pg 27.0-32.0 [facility] Mean corpuscular hemoglobin concentration (MCHC) determinationOrdered By: Stephon Michelle on 11-23-2024 MCHC (RBC) [Mass/Vol] 32.9 g/dL 32-36 [facility] Mean platelet volume determi nationOrdered By: Stephon Michelle on 11-23-2024 Platelet mean volume (Bld) [Entitic vol] 9.4 fL 6.2-12.0 [facility] Microscopic analysis of urin e for red blood cells (RBC)Ordered By: Stephon Michelel on 11-23-2024 Microscopic analysis of urine for red blood cells (RBC) 0 SEEN /hpf 0-5 [facility] Urine RBC 0 SEEN /hpf 0-5 [facility] Monocyte percentageOrdered B y: Stephon Michelle on 11-23-2024 Monocytes/100 WBC (Bld) 6.9 % 0-10 [facility] Mucus LM Ql (Urine sed)Order ed By: Stephon Michelle on 11-23-2024 Mucus Ql (Urine sed) 0 SEEN /hpf [facility] Neutrophil percentageOrdered By: Stephon Michelle on 11-23-2024 Neutrophils/100 WBC (Bld) 64.1 % 47-70 [facility] Nitrite Test strip Ql (U)Ord ered By: Stephon Michelle on 11-23-2024 Nitrite Ql (U) Negative Negative [facility] Nucleated red blood cell per centageOrdered By: Stephon Michelle on 11-23-2024 Nucleated RBC/100 WBC (Bld) [Ratio] 0 % 0-5 [facility] Platelet countOrdered By: Andrew Michelle on 11-23-2024 Platelets (Bld) [#/Vol] 264 10*3/uL 150-450 [facility] Potassium (Unsp spec) [Mass/ Vol]Ordered By: Stephon Michelle on 11-23-2024 Potassium [Moles/Vol] 5.0 mmol/L 3.3-5.1 [facility] Potassium measurement (mass/ volume)Ordered By: Stephon Michelle on 11-23-2024 Potassium (Unsp spec) [Mass/Vol] 5.0 mmol/L 3.3-5.1 [facility] Protein Test strip Ql (U)Ord ered By: Stephon Michelle on 11-23-2024 Protein Ql (U) 30 mg/dl High Negative [facility] RBC Auto (Bld) [#/Vol]Ordere d By: Stephon Michelle on 11-23-2024 RBC (Bld) [#/Vol] 3.26 10*6/uL Low 4.2-5.4 [facility] Serum creatinine measurement (mass/volume)Ordered By: Stephon Michelle on 11-23-2024 Creatinine [Mass/Vol] 1.26 mg/dL High 0.70-1.20 [facility] Serum globulin measurementOr dered By: Stephon Michelle on 11-23-2024 Globulin (S) [Mass/Vol] 2.7 g/dL 2.2-4.2 [facility] Serum glucose measurement (m ass/volume)Ordered By: Stephon Michelle on 11-23-2024 Glucose [Mass/Vol] 108 mg/dL High 70-99 [facility] Serum or plasma alanine barahona otransferase (ALT) measurementOrdered By: Stephon Michelle on 11-23-2024 ALT [Catalytic activity/Vol] 9 U/L <35 [facility] Serum or plasma albumin andrew urement (mass/volume)Ordered By: Stephon Michelle on 11-23-2024 Albumin [Mass/Vol] 3.6 g/dL 3.4-4.8 [facility] Serum or plasma alkaline latrell sphatase measurementOrdered By: Stephon Michelle on 11-23-2024 ALP [Catalytic activity/Vol] 62 U/L 35-104 [facility] Serum or plasma calcium andrew urement (mass/volume)Ordered By: Stephon Michelle on 11-23-2024 Calcium [Mass/Vol] 8.6 mg/dL 7.6-11.0 [facility] Serum or plasma urea nitroge n measurement (mass/volume)Ordered By: Stephon Michelle on 11-23-2024 Urea nitrogen [Mass/Vol] 27 mg/dL High 4-19 [facility] Sodium levelOrdered By: Willian Michelle on 11-23-2024 Sodium [Moles/Vol] 138 mmol/L 133-145 [facility] Squamous epithelial cells de tection in urine sediment by light microscopyOrdered By: Stephon Michelle on 11-23-2024 Epithelial cells.squamous LM Ql (Urine sed) 0-5 SEEN /hpf 5-10 [facility] Total proteinOrdered By: Elias Michelle on 11-23-2024 Protein [Mass/Vol] 6.3 g/dL 5.9-8.4 [facility] Troponin T.cardiac High sens itivity method [Mass/Vol]Ordered By: Stephon Michelle on 11-23-2024 Troponin T High Sensitivity 2 Hour 21 ng/L High <14 [facility] Troponin T High Sensitivity 26 ng/L High <14 [facility] Troponin T.cardiac [Mass/vol ume] in Serum or Plasma by High sensitivity methodOrdered By: Stephon Michelle on 11-23-2024 Troponin T.cardiac High sensitivity method [Mass/Vol] 21 ng/L High <14 [facility] Troponin T.cardiac High sensitivity method [Mass/Vol] 26 ng/L High <14 [facility] Urinalysis, Completeon 11-23 EPI,SQUAMOUS 0-5 SEEN Normal 5-10 [facility] Comment on above: Order Comment: CLEAN CATCH Performed By: #### L 400.0001 ####[facility] [address] [place], [address] WBC 0-5 SEEN Normal 0-5 [facility] Comment on above: Order Comment: CLEAN CATCH Performed By: #### L 400.0001 ####[facility] [address] [place], [address] BACTERIA 0 SEEN Normal None Seen [facility] Comment on above: Order Comment: CLEAN CATCH Performed By: #### L 400.0001 ####[facility] [address] [place], [address] Mucus Ql (Urine sed) 0 SEEN Normal [facility] Comment on above: Order Comment: CLEAN CATCH Performed By: #### L 400.0001 ####[facility] [address] [place], [address] RBC 0 SEEN Normal 0-5 [facility] Comment on above: Order Comment: CLEAN CATCH Performed By: #### L 400.0001 ####[facility] [address] [place], [address] Urine blood detectionOrdered By: Stephon Michelle on 11-23-2024 Urine Occult Blood Negative Negative [facility] Urine clarityOrdered By: Elias Michelle on 11-23-2024 Clarity (U) Sl. Cloudy Clear [facility] Urine color determinationOrd ered By: Stephon Michelle on 11-23-2024 Color (U) Yellow Yellow [facility] Urine glucose detectionOrder ed By: Stephon Michelle on 11-23-2024 Glucose Ql (U) Normal mg/dl Normal [facility] Urine leukocyte esterase det ection by dipstickOrdered By: Stephon Michelle on 11-23-2024 Leukocyte esterase Test strip Ql (U) 25 /ul High Negative [facility] Urine pHOrdered By: Stephon velazquez on 11-23-2024 pH (U) 6.0 [pH] 5.0 - 8.0 [facility] Urine sediment bacteria coun t by microscopy (number/high power field)Ordered By: Stephon Michelle on 11-23-2024 Bacteria LM.HPF (Urine sed) [#/Area] 0 /[HPF] None Seen [facility] Urine specific gravity measu rementOrdered By: Stephon Michelle on 11-23-2024 Specific gravity (U) [Rel density] 1.015 1.002-1.030 [facility] Urine urobilinogen measureme ntOrdered By: Stephon Michelle on 11-23-2024 Urobilinogen Ql (U) Normal mg/dl Normal [facility] Urobilinogen Ql (U)Ordered B y: Stephon Michelle on 11-23-2024 Urine Urobilinogen Normal mg/dl Normal [facility] White blood cell (WBC) count Ordered By: Stephon Michelle on 11-23-2024 WBC (Bld) [#/Vol] 6.4 10*3/uL 4.4-11.0 [facility] White blood cell countOrdere d By: Stephon Michelle on 11-23-2024 Urine WBC 0-5 SEEN /hpf 0-5 [facility] White blood cell count 0-5 SEEN /hpf 0-5 [facility] Basic Metabolic Profile (BMP )on 11-07-2024 BUN Normal 7-18 [facility] Comment on above: Result Comment: Canc elled via OM: Order cancelled - Patient discharged Performed By: #### L 500.2500, L100.0100 ####[facility] [address] [place], [place], [id number] BUN/CRE Normal 10-20 [facility] Comment on above: Result Comment: Canc elled via OM: Order cancelled - Patient discharged Performed By: #### L 500.2500, L100.0100 ####[facility] [address] [place], [address] Calcium Normal 8.5-10.1 [facility] Comment on above: Result Comment: Canc elled via OM: Order cancelled - Patient discharged Performed By: #### L 500.2500, L100.0100 ####[facility] [address] [place], [address] CL Normal 98-107 [facility] Comment on above: Result Comment: Canc elled via OM: Order cancelled - Patient discharged Performed By: #### L 500.2500, L100.0100 ####[facility] [address] [place], [address] CO2 Normal 21.0-32.0 [facility] Comment on above: Result Comment: Canc elled via OM: Order cancelled - Patient discharged Performed By: #### L 500.2500, L100.0100 ####[facility] [address] [place], [address] CREAT,SERUM Normal 0.55-1.02 [facility] Comment on above: Result Comment: Canc elled via OM: Order cancelled - Patient discharged Performed By: #### L 500.2500, L100.0100 ####[facility] [address] [place], [address] eGFR Normal >60 [facility] Comment on above: Result Comment: Canc elled via OM: Order cancelled - Patient discharged Performed By: #### L 500.2500, L100.0100 ####[facility] [address] [place], [address] EST GFR - AA Normal >60 [facility] Comment on above: Result Comment: Canc elled via OM: Order cancelled - Patient discharged Performed By: #### L 500.2500, L100.0100 ####[facility] [address] [place], [address] GAP Normal 5-15 [facility] Comment on above: Result Comment: Canc elled via OM: Order cancelled - Patient discharged Performed By: #### L 500.2500, L100.0100 ####[facility] [address] [place], [address] GLU Normal 74-106 [facility] Comment on above: Result Comment: Canc elled via OM: Order cancelled - Patient discharged Performed By: #### L 500.2500, L100.0100 ####[facility] [address] [place], [address] Potassium Normal 3.5-5.1 [facility] Comment on above: Result Comment: Canc elled via OM: Order cancelled - Patient discharged Performed By: #### L 500.2500, L100.0100 ####[facility] [address] [place], [address] Basic Metabolic Profile (BMP) Normal 136-145 [facility] Comment on above: Result Comment: Canc elled via OM: Order cancelled - Patient discharged Performed By: #### L 500.2500, L100.0100 ####[facility] [address] [place], [address] CBC W/Diff, Automatedon 03-2 Absolute Neut Normal 2.0-7.7 [facility] Comment on above: Result Comment: Canc elled via OM: Order cancelled - Patient discharged Performed By: #### L 500.2500, L100.0100 ####[facility] [address] [place], [address] HCT Normal 37-47 [facility] Comment on above: Result Comment: Canc elled via OM: Order cancelled - Patient discharged Performed By: #### L 500.2500, L100.0100 ####[facility] [address] [place], [address] HGB Normal 12.0-15.0 [facility] Comment on above: Result Comment: Canc elled via OM: Order cancelled - Patient discharged Performed By: #### L 500.2500, L100.0100 ####[facility] [address] [place], [address] MCH Normal 27.0-32.0 [facility] Comment on above: Result Comment: Canc elled via OM: Order cancelled - Patient discharged Performed By: #### L 500.2500, L100.0100 ####[facility] [address] [place], [address] MCHC Normal 32-36 [facility] Comment on above: Result Comment: Canc elled via OM: Order cancelled - Patient discharged Performed By: #### L 500.2500, L100.0100 ####[facility] [address] [place], [address] MCV Normal 81-99 [facility] Comment on above: Result Comment: Canc elled via OM: Order cancelled - Patient discharged Performed By: #### L 500.2500, L100.0100 ####[facility] [address] [place], [address] NEUT% Normal 47-70 [facility] Comment on above: Result Comment: Canc elled via OM: Order cancelled - Patient discharged Performed By: #### L 500.2500, L100.0100 ####[facility] [address] [place], [address] PLT Normal 150-450 [facility] Comment on above: Result Comment: Canc elled via OM: Order cancelled - Patient discharged Performed By: #### L 500.2500, L100.0100 ####[facility] [address] [place], [address] RBC Normal 4.2-5.4 [facility] Comment on above: Result Comment: Canc elled via OM: Order cancelled - Patient discharged Performed By: #### L 500.2500, L100.0100 ####[facility] [address] [place], [address] RDW CV Normal 11.6-14.6 [facility] Comment on above: Result Comment: Canc elled via OM: Order cancelled - Patient discharged Performed By: #### L 500.2500, L100.0100 ####[facility] [address] [place], [address] RDW SD Normal 35.1-43.9 [facility] Comment on above: Result Comment: Canc elled via OM: Order cancelled - Patient discharged Performed By: #### L 500.2500, L100.0100 ####[facility] [address] [place], [address] WBC Normal 4.4-11.0 [facility] Comment on above: Result Comment: Canc elled via OM: Order cancelled - Patient discharged Performed By: #### L 500.2500, L100.0100 ####[facility] [address] [place], [address] Basic Metabolic Profile (BMP )on 10-31-2024 BUN Normal 7-18 [facility] Comment on above: Result Comment: Canc elled via OM: Order cancelled - Patient discharged Performed By: #### L 100.0100, L500.2500 ####[facility] [address] [place], [address] BUN/CRE Normal 10-20 [facility] Comment on above: Result Comment: Canc elled via OM: Order cancelled - Patient discharged Performed By: #### L 100.0100, L500.2500 ####[facility] [address] [place], [address] Calcium Normal 8.5-10.1 [facility] Comment on above: Result Comment: Canc elled via OM: Order cancelled - Patient discharged Performed By: #### L 100.0100, L500.2500 ####[facility] [address] [place], [address] CL Normal 98-107 [facility] Comment on above: Result Comment: Canc elled via OM: Order cancelled - Patient discharged Performed By: #### L 100.0100, L500.2500 ####[facility] [address] [place], [address] CO2 Normal 21.0-32.0 [facility] Comment on above: Result Comment: Canc elled via OM: Order cancelled - Patient discharged Performed By: #### L 100.0100, L500.2500 ####[facility] [address] [place], [address] CREAT,SERUM Normal 0.55-1.02 [facility] Comment on above: Result Comment: Canc elled via OM: Order cancelled - Patient discharged Performed By: #### L 100.0100, L500.2500 ####[facility] [address] [place], [address] eGFR Normal >60 [facility] Comment on above: Result Comment: Canc elled via OM: Order cancelled - Patient discharged Performed By: #### L 100.0100, L500.2500 ####[facility] [address] [place], [address] EST GFR - AA Normal >60 [facility] Comment on above: Result Comment: Canc elled via OM: Order cancelled - Patient discharged Performed By: #### L 100.0100, L500.2500 ####[facility] [address] [place], [address] GAP Normal 5-15 [facility] Comment on above: Result Comment: Canc elled via OM: Order cancelled - Patient discharged Performed By: #### L 100.0100, L500.2500 ####[facility] [address] [place], [address] GLU Normal 74-106 [facility] Comment on above: Result Comment: Canc elled via OM: Order cancelled - Patient discharged Performed By: #### L 100.0100, L500.2500 ####[facility] [address] [place], [address] Potassium Normal 3.5-5.1 [facility] Comment on above: Result Comment: Canc elled via OM: Order cancelled - Patient discharged Performed By: #### L 100.0100, L500.2500 ####[facility] [address] [place], [address] Basic Metabolic Profile (BMP) Normal 136-145 [facility] Comment on above: Result Comment: Canc elled via OM: Order cancelled - Patient discharged Performed By: #### L 100.0100, L500.2500 ####[facility] [address] [place], [address] CBC W/Diff, Automatedon 03-2 Absolute Neut Normal 2.0-7.7 [facility] Comment on above: Result Comment: Canc elled via OM: Order cancelled - Patient discharged Performed By: #### L 100.0100, L500.2500 ####[facility] [address] [place], [address] HCT Normal 37-47 [facility] Comment on above: Result Comment: Canc elled via OM: Order cancelled - Patient discharged Performed By: #### L 100.0100, L500.2500 ####[facility] [address] [place], [address] HGB Normal 12.0-15.0 [facility] Comment on above: Result Comment: Canc elled via OM: Order cancelled - Patient discharged Performed By: #### L 100.0100, L500.2500 ####[facility] [address] [place], [address] MCH Normal 27.0-32.0 [facility] Comment on above: Result Comment: Canc elled via OM: Order cancelled - Patient discharged Performed By: #### L 100.0100, L500.2500 ####[facility] [address] [place], [address] MCHC Normal 32-36 [facility] Comment on above: Result Comment: Canc elled via OM: Order cancelled - Patient discharged Performed By: #### L 100.0100, L500.2500 ####[facility] [address] [place], [address] MCV Normal 81-99 [facility] Comment on above: Result Comment: Canc elled via OM: Order cancelled - Patient discharged Performed By: #### L 100.0100, L500.2500 ####[facility] [address] [place], [address] NEUT% Normal 47-70 [facility] Comment on above: Result Comment: Canc elled via OM: Order cancelled - Patient discharged Performed By: #### L 100.0100, L500.2500 ####[facility] [address] [place], [address] PLT Normal 150-450 [facility] Comment on above: Result Comment: Canc elled via OM: Order cancelled - Patient discharged Performed By: #### L 100.0100, L500.2500 ####[facility] [address] [place], [address] RBC Normal 4.2-5.4 [facility] Comment on above: Result Comment: Canc elled via OM: Order cancelled - Patient discharged Performed By: #### L 100.0100, L500.2500 ####[facility] [address] [place], [address] RDW CV Normal 11.6-14.6 [facility] Comment on above: Result Comment: Canc elled via OM: Order cancelled - Patient discharged Performed By: #### L 100.0100, L500.2500 ####[facility] [address] [place], [address] RDW SD Normal 35.1-43.9 [facility] Comment on above: Result Comment: Canc elled via OM: Order cancelled - Patient discharged Performed By: #### L 100.0100, L500.2500 ####[facility] [address] [place], [address] WBC Normal 4.4-11.0 [facility] Comment on above: Result Comment: Canc elled via OM: Order cancelled - Patient discharged Performed By: #### L 100.0100, L500.2500 ####[facility] [address] [place], [address] Absolute lymphocyte countOrd ered By: Rancho Matthew on 10-24-2024 Lymphocytes Auto (Unsp spec) [#/Vol] 1.45 10*3/uL 0.83-4.51 [facility] Absolute neutrophil countOrd ered By: Rancho Matthew on 10-24-2024 Neutrophils (Bld) [#/Vol] 2.0 10*3/uL 2.0-7.7 [facility] Anion gap in Serum or Plasma Ordered By: Rancho Matthew on 10-24-2024 Anion gap [Moles/Vol] 11 mmol/L 5-15 [facility] Automated lymphocyte count a s percentage of total leukocytesOrdered By: Rancho Matthew on 10-24-2024 Lymphocytes/100 WBC Auto (Unsp spec) 35.8 % 19-41 [facility] BUN/creatinine ratioOrdered By: Rancho Matthew on 10-24-2024 Urea nitrogen/Creatinine [Mass ratio] 28.7 mg/mg High 10-20 [facility] Basic Metabolic Profile (BMP )on 10-24-2024 EST GFR - AA TNP Normal >60 [facility] Comment on above: Performed By: #### L 100.0100, L500.2500 ####[facility] [address] [place], [address] Basophil percentageOrdered B y: Rancho Matthew on 10-24-2024 Basophils/100 WBC (Bld) 1.2 % High 0-1 [facility] CBC W/Diff, Automatedon 10-11 Absolute Lymph 1.45 X10 3/uL Normal 0.83-4.51 [facility] Comment on above: Performed By: #### L 100.0100, L500.2500 ####[facility] [address] [place], [address] Absolute Neut 2.0 X10 3/uL Normal 2.0-7.7 [facility] Comment on above: Performed By: #### L 100.0100, L500.2500 ####[facility] [address] [place], [address] Basophils/100 WBC (Bld) 1.2 % High 0-1 [facility] Comment on above: Performed By: #### L 100.0100, L500.2500 ####[facility] [address] [place], [address] Eosinophils/100 WBC (Bld) 3.5 % Normal 0-5 [facility] Comment on above: Performed By: #### L 100.0100, L500.2500 ####[facility] [address] [place], [address] Erythrocyte distribution width (RBC) [Ratio] 14.3 % Normal 11.6-14.6 [facility] Comment on above: Performed By: #### L 100.0100, L500.2500 ####[facility] [address] [place], [address] Hematocrit (Bld) [Volume fraction] 30.8 % Low 37-47 [facility] Comment on above: Performed By: #### L 100.0100, L500.2500 ####[facility] [address] [place], [address] Hemoglobin (Bld) [Mass/Vol] 9.5 g/dL Low 12.0-15.0 [facility] Comment on above: Performed By: #### L 100.0100, L500.2500 ####[facility] [address] [place], [address] IG% 0.700 Normal 0.0-0.9 [facility] Comment on above: Result Comment: IG% - Immature Granulocytes (promyelocytes, myelocytes andmetamyelocytes) > 1% indicates that a LEFT SHIFT is Present. Performed By: #### L 100.0100, L500.2500 ####[facility] [address] [place], [address] Lymphocytes/100 WBC (Bld) 35.8 % Normal 19-41 [facility] Comment on above: Performed By: #### L 100.0100, L500.2500 ####[facility] [address] [place], [address] MCH (RBC) [Entitic mass] 30.4 pg Normal 27.0-32.0 [facility] Comment on above: Performed By: #### L 100.0100, L500.2500 ####[facility] [address] [place], [address] MCHC (RBC) [Mass/Vol] 30.8 g/dL Low 32-36 [facility] Comment on above: Performed By: #### L 100.0100, L500.2500 ####[facility] [address] [place], [address] MCV (RBC) [Entitic vol] 98.7 fL Normal 81-99 [facility] Comment on above: Performed By: #### L 100.0100, L500.2500 ####[facility] [address] [place], [address] Monocytes/100 WBC (Bld) 10.6 % High 0-10 [facility] Comment on above: Performed By: #### L 100.0100, L500.2500 ####[facility] [address] [place], [address] Neutrophils/100 WBC (Bld) 48.2 % Normal 47-70 [facility] Comment on above: Performed By: #### L 100.0100, L500.2500 ####[facility] [address] [place], [address] Nucleated RBC (Bld) [#/Vol] 0 10*3/uL Normal 0-5 [facility] Comment on above: Performed By: #### L 100.0100, L500.2500 ####[facility] [address] [place], [address] Platelet mean volume (Bld) [Entitic vol] 9.4 fL Normal 6.2-12.0 [facility] Comment on above: Performed By: #### L 100.0100, L500.2500 ####[facility] [address] [place], [address] Platelets (Bld) [#/Vol] 255 10*3/uL Normal 150-450 [facility] Comment on above: Performed By: #### L 100.0100, L500.2500 ####[facility] [address] [place], [address] RBC (Bld) [#/Vol] 3.12 10*6/uL Low 4.2-5.4 [facility] Comment on above: Performed By: #### L 100.0100, L500.2500 ####[facility] [address] [place], [address] RDW SD 51.7 fl High 35.1-43.9 [facility] Comment on above: Performed By: #### L 100.0100, L500.2500 ####[facility] [address] [place], [address] WBC (Bld) [#/Vol] 4.1 10*3/uL Low 4.4-11.0 [facility] Comment on above: Performed By: #### L 100.0100, L500.2500 ####[facility] [address] [place], [address] Carbon dioxide, total [Moles /volume] in Central venous bloodOrdered By: Rancho Matthew on 10-24-2024 CO2 [Moles/Vol] 24.5 mmol/L 21.0-32.0 [facility] Chloride assayOrdered By: Baltazar Matthew on 10-24-2024 Chloride [Moles/Vol] 103 mmol/L 98-108 [facility] Eosinophil percentageOrdered By: Rancho Matthew 10-24-2024 Eosinophils/100 WBC (Bld) 3.5 % 0-5 [facility] Erythrocyte distribution wid th ratioOrdered By: Rancho Matthew 10-24-2024 Erythrocyte distribution width (RBC) [Ratio] 14.3 % 11.6-14.6 [facility] Erythrocyte distribution wid th standard deviationOrdered By: Rancho Matthew 10-24-2024 Erythrocyte distribution width (RBC) [Entitic vol] 51.7 fL High 35.1-43.9 [facility] Erythrocyte distribution width (RBC) [Ratio] 51.7 fl High 35.1-43.9 [facility] Estimated glomerular filtrat ion rate (GFR) AmericanOrdered By: Rancho Matthew 10-24-2024 Estimated GFR (MDRD) Amer TNP [facility] Comment on above: Test not performed Estimation of creatinine oj aranceOrdered By: Rancho Matthew 10-24-2024 Estimated Creatinine Clearance Calc 47.73 ml/min Low 50-250 [facility] GFR/1.73 sq M.predicted clarence g non-blacks MDRD (S/P/Bld) [Vol rate/Area]Ordered By: Rancho Matthew 10-24-2024 Estimated GFR (MDRD) Non-Af Amer 60 >60 [facility] Comment on above: mL/min/1.73m2 CKD-EP I Creatinine Equation (2020) Glomerular filtration rate ( GFR) estimation/1.73 sq m using serum, plasma, or whole bOrdered By: Rancho Matthew on 10-24-2024 GFR/1.73 sq M.predicted among non-blacks MDRD (S/P/Bld) [Vol rate/Area] 60 mL/min/{1.73_m2} >60 [facility] Comment on above: mL/min/1.73m2 CKD-EP I Creatinine Equation (2020) Hematocrit Auto (Bld) [Volum e fraction]Ordered By: Rancho Matthew on 10-24-2024 Hematocrit (Bld) [Volume fraction] 30.8 % Low 37-47 [facility] [facility] Hemoglobin measurementOrdere d By: Rancho Matthew 10-24-2024 Hemoglobin (Bld) [Mass/Vol] 9.5 g/dL Low 12.0-15.0 [facility] Immature granulocytes/100 WB C Auto (Bld)Ordered By: Rancho Matthew 10-24-2024 Immature granulocytes/100 WBC (Bld) 0.700 % 0.0-0.9 [facility] Comment on above: IG% - Immature Granu locytes (promyelocytes, myelocytes and metamyelocytes) > 1% indicates that a LEFT SHIFT is Present. Lymphocytes Auto (Unsp spec) [#/Vol]Ordered By: Rancho Matthew 10-24-2024 Lymphocytes (Bld) [#/Vol] 1.45 10*3/uL 0.83-4.51 [facility] Lymphocytes/100 WBC Auto (Un sp spec)Ordered By: Rancho Matthew 10-24-2024 Lymphocytes/100 WBC (Bld) 35.8 % 19-41 [facility] MCV (mean corpuscular volume ) determinationOrdered By: Rancho Matthew 10-24-2024 MCV (RBC) [Entitic vol] 98.7 fL 81-99 [facility] Mean corpuscular hemoglobin (MCH) determinationOrdered By: Rancho Matthew 10-24-2024 MCH (RBC) [Entitic mass] 30.4 pg 27.0-32.0 [facility] Mean corpuscular hemoglobin concentration (MCHC) determinationOrdered By: Rancho Matthew on 10-24-2024 MCHC (RBC) [Mass/Vol] 30.8 g/dL Low 32-36 [facility] Mean platelet volume determi nationOrdered By: Rancho Matthew on 10-24-2024 Platelet mean volume (Bld) [Entitic vol] 9.4 fL 6.2-12.0 [facility] Monocyte percentageOrdered B y: Rancho Matthew on 10-24-2024 Monocytes/100 WBC (Bld) 10.6 % High 0-10 [facility] Neutrophil percentageOrdered By: Rancho Matthew on 10-24-2024 Neutrophils/100 WBC (Bld) 48.2 % 47-70 [facility] Nucleated red blood cell per centageOrdered By: Rancho Matthew on 10-24-2024 Nucleated RBC/100 WBC (Bld) [Ratio] 0 % 0-5 [facility] Platelet countOrdered By: Baltazar Matthew on 10-24-2024 Platelets (Bld) [#/Vol] 255 10*3/uL 150-450 [facility] Potassium (Unsp spec) [Mass/ Vol]Ordered By: Rancho Matthew on 10-24-2024 Potassium [Moles/Vol] 4.6 mmol/L 3.3-5.1 [facility] Potassium measurement (mass/ volume)Ordered By: Rancho Matthew on 10-24-2024 Potassium (Unsp spec) [Mass/Vol] 4.6 mmol/L 3.3-5.1 [facility] RBC Auto (Bld) [#/Vol]Ordere d By: Rancho Matthew on 10-24-2024 RBC (Bld) [#/Vol] 3.12 10*6/uL Low 4.2-5.4 [facility] Serum creatinine measurement (mass/volume)Ordered By: Rancho Matthew on 10-24-2024 Creatinine [Mass/Vol] 0.95 mg/dL 0.70-1.20 [facility] Serum glucose measurement (m ass/volume)Ordered By: Rancho Matthew on 10-24-2024 Glucose [Mass/Vol] 94 mg/dL 70-99 [facility] Serum or plasma calcium andrew urement (mass/volume)Ordered By: Rancho Matthew on 10-24-2024 Calcium [Mass/Vol] 8.8 mg/dL 7.6-11.0 [facility] Serum or plasma urea nitroge n measurement (mass/volume)Ordered By: Rancho Matthew on 10-24-2024 Urea nitrogen [Mass/Vol] 27 mg/dL High 4-19 [facility] Sodium levelOrdered By: Rancho Matthew on 10-24-2024 Sodium [Moles/Vol] 139 mmol/L 133-145 [facility] White blood cell (WBC) count Ordered By: Rancho Matthew on 10-24-2024 WBC (Bld) [#/Vol] 4.1 10*3/uL Low 4.4-11.0 [facility] Basic Metabolic Profile (BMP )on 10-17-2024 EST GFR - AA TNP Normal >60 [facility] Comment on above: Performed By: #### L 500.2500, L100.0100 ####[facility] [address] [place], [address] CBC W/Diff, Automatedon Absolute Lymph 1.85 X10 3/uL Normal 0.83-4.51 [facility] Comment on above: Performed By: #### L 500.2500, L100.0100 ####[facility] [address] [place], [address] Absolute Neut 2.7 X10 3/uL Normal 2.0-7.7 [facility] Comment on above: Performed By: #### L 500.2500, L100.0100 ####[facility] [address] [place], [address] Basophils/100 WBC (Bld) 1.1 % High 0-1 [facility] Comment on above: Performed By: #### L 500.2500, L100.0100 ####[facility] [address] [place], [address] Eosinophils/100 WBC (Bld) 3.8 % Normal 0-5 [facility] Comment on above: Performed By: #### L 500.2500, L100.0100 ####[facility] [address] [place], [address] Erythrocyte distribution width (RBC) [Ratio] 14.6 % Normal 11.6-14.6 [facility] Comment on above: Performed By: #### L 500.2500, L100.0100 ####[facility] [address] [place], [address] Hematocrit (Bld) [Volume fraction] 31.8 % Low 37-47 [facility] Comment on above: Performed By: #### L 500.2500, L100.0100 ####[facility] [address] [place], [address] Hemoglobin (Bld) [Mass/Vol] 10.0 g/dL Low 12.0-15.0 [facility] Comment on above: Performed By: #### L 500.2500, L100.0100 ####[facility] [address] [place], [address] IG% 0.900 Normal 0.0-0.9 [facility] Comment on above: Result Comment: IG% - Immature Granulocytes (promyelocytes, myelocytes andmetamyelocytes) > 1% indicates that a LEFT SHIFT is Present. Performed By: #### L 500.2500, L100.0100 ####[facility] [address] [place], [address] Lymphocytes/100 WBC (Bld) 34.9 % Normal 19-41 [facility] Comment on above: Performed By: #### L 500.2500, L100.0100 ####[facility] [address] [place], [address] MCH (RBC) [Entitic mass] 31.0 pg Normal 27.0-32.0 [facility] Comment on above: Performed By: #### L 500.2500, L100.0100 ####[facility] [address] [place], [address] MCHC (RBC) [Mass/Vol] 31.4 g/dL Low 32-36 [facility] Comment on above: Performed By: #### L 500.2500, L100.0100 ####[facility] [address] [place], [address] MCV (RBC) [Entitic vol] 98.5 fL Normal 81-99 [facility] Comment on above: Performed By: #### L 500.2500, L100.0100 ####[facility] [address] [place], [address] Monocytes/100 WBC (Bld) 8.9 % Normal 0-10 [facility] Comment on above: Performed By: #### L 500.2500, L100.0100 ####[facility] [address] [place], [address] Neutrophils/100 WBC (Bld) 50.4 % Normal 47-70 [facility] Comment on above: Performed By: #### L 500.2500, L100.0100 ####[facility] [address] [place], [address] Nucleated RBC (Bld) [#/Vol] 0 10*3/uL Normal 0-5 [facility] Comment on above: Performed By: #### L 500.2500, L100.0100 ####[facility] [address] [place], [address] Platelet mean volume (Bld) [Entitic vol] 9.0 fL Normal 6.2-12.0 [facility] Comment on above: Performed By: #### L 500.2500, L100.0100 ####[facility] [address] [place], [address] Platelets (Bld) [#/Vol] 429 10*3/uL Normal 150-450 [facility] Comment on above: Performed By: #### L 500.2500, L100.0100 ####[facility] [address] [place], [address] RBC (Bld) [#/Vol] 3.23 10*6/uL Low 4.2-5.4 [facility] Comment on above: Performed By: #### L 500.2500, L100.0100 ####[facility] [address] [place], [address] RDW SD 52.9 fl High 35.1-43.9 [facility] Comment on above: Performed By: #### L 500.2500, L100.0100 ####[facility] [address] [place], [address] WBC (Bld) [#/Vol] 5.3 10*3/uL Normal 4.4-11.0 [facility] Comment on above: Performed By: #### L 500.2500, L100.0100 ####[facility] [address] [place], [address] Basic Metabolic Profile (BMP )on 10-10-2024 Anion gap [Moles/Vol] 13 mmol/L Normal 5-15 [facility] Comment on above: Performed By: #### L 500.2500 ####[facility] [address] [place], [address] BUN/CRE 17.7 RATIO Normal 10-20 [facility] Comment on above: Performed By: #### L 500.2500 ####[facility] [address] [place], [address] Calcium [Mass/Vol] 9.2 mg/dL Normal 7.6-11.0 [facility] Comment on above: Performed By: #### L 500.2500 ####[facility] [address] [place], [address] CO2 [Moles/Vol] 25.5 mmol/L Normal 22.0-29.0 [facility] Comment on above: Performed By: #### L 500.2500 ####[facility] [address] [place], [address] Creatinine [Mass/Vol] 1.06 mg/dL Normal 0.70-1.20 [facility] Comment on above: Performed By: #### L 500.2500 ####[facility] [address] [place], [address] ECRCL 43.48 ml/min Normal [facility] Comment on above: Performed By: #### L 500.2500 ####[facility] [address] [place], [address] GFR/1.73 sq M.predicted among non-blacks MDRD (S/P/Bld) [Vol rate/Area] 53 mL/min/{1.73_m2} Low >60 [facility] Comment on above: Result Comment: mL/m in/1.73m2 CKD-EPI Creatinine Equation (2020) Performed By: #### L 500.2500 ####[facility] [address] [place], [address] Glucose [Mass/Vol] 96 mg/dL Normal 70-99 [facility] Comment on above: Performed By: #### L 500.2500 ####[facility] [address] [place], [address] Potassium [Moles/Vol] 4.7 mmol/L Normal 3.3-5.1 [facility] Comment on above: Performed By: #### L 500.2500 ####[facility] [address] [place], [address] Sodium [Moles/Vol] 138 mmol/L Normal 133-145 [facility] Comment on above: Performed By: #### L 500.2500 ####[facility] [address] [place], [address] Urea nitrogen [Mass/Vol] 19 mg/dL Normal 4-19 [facility] Comment on above: Performed By: #### L 500.2500 ####[facility] [address] [place], [address] BUN/CRE 19.7 RATIO Normal 10-20 [facility] Comment on above: Result Comment: WILL REORDER Performed By: #### L 500.2500, L100.0100 ####[facility] [address] [place], [address] Creatinine [Mass/Vol] 0.98 mg/dL Normal 0.70-1.20 [facility] Comment on above: Result Comment: WILL REORDER Performed By: #### L 500.2500, L100.0100 ####[facility] [address] [place], [address] ECRCL 47.03 ml/min Normal [facility] Comment on above: Result Comment: WILL REORDER Performed By: #### L 500.2500, L100.0100 ####[facility] [address] [place], [address] GFR/1.73 sq M.predicted among non-blacks MDRD (S/P/Bld) [Vol rate/Area] 58 mL/min/{1.73_m2} Low >60 [facility] Comment on above: Result Comment: WILL REORDERmL/min/1.73m2 CKD-EPI Creatinine Equation (2020) Performed By: #### L 500.2500, L100.0100 ####[facility] [address] [place], [address] Glucose [Mass/Vol] 97 mg/dL Normal 70-99 [facility] Comment on above: Result Comment: WILL REORDER Performed By: #### L 500.2500, L100.0100 ####[facility] [address] [place], [address] Urea nitrogen [Mass/Vol] 19 mg/dL Normal 4-19 [facility] Comment on above: Result Comment: WILL REORDER Performed By: #### L 500.2500, L100.0100 ####[facility] [address] [place], [address] Calcium Normal 8.5-10.1 [facility] Comment on above: Result Comment: WILL REORDER Performed By: #### L 500.2500, L100.0100 ####[facility] [address] [place], [address] CL Normal 98-107 [facility] Comment on above: Result Comment: WILL REORDER Performed By: #### L 500.2500, L100.0100 ####[facility] [address] [place], [address] CO2 Normal 21.0-32.0 [facility] Comment on above: Result Comment: WILL REORDER Performed By: #### L 500.2500, L100.0100 ####[facility] [address] [place], [address] EST GFR - AA Normal >60 [facility] Comment on above: Result Comment: WILL REORDER Performed By: #### L 500.2500, L100.0100 ####[facility] [address] [place], [address] GAP Normal 5-15 [facility] Comment on above: Result Comment: WILL REORDER Performed By: #### L 500.2500, L100.0100 ####[facility] [address] [place], [address] Potassium Normal 3.5-5.1 [facility] Comment on above: Result Comment: WILL REORDER Performed By: #### L 500.2500, L100.0100 ####[facility] [address] [place], [address] Basic Metabolic Profile (BMP) Normal 136-145 [facility] Comment on above: Result Comment: WILL REORDER Performed By: #### L 500.2500, L100.0100 ####[facility] [address] [place], [address] CBC W/Diff, Automatedon 09-14 Absolute Lymph 2.18 X10 3/uL Normal 0.83-4.51 [facility] Comment on above: Performed By: #### L 500.2500, L100.0100 ####[facility] [address] [place], [address] Absolute Neut 3.9 X10 3/uL Normal 2.0-7.7 [facility] Comment on above: Performed By: #### L 500.2500, L100.0100 ####[facility] [address] [place], [address] Basophils/100 WBC (Bld) 1.0 % Normal 0-1 [facility] Comment on above: Performed By: #### L 500.2500, L100.0100 ####[facility] [address] [place], [address] Eosinophils/100 WBC (Bld) 2.1 % Normal 0-5 [facility] Comment on above: Performed By: #### L 500.2500, L100.0100 ####[facility] [address] [place], [address] Erythrocyte distribution width (RBC) [Ratio] 14.4 % Normal 11.6-14.6 [facility] Comment on above: Performed By: #### L 500.2500, L100.0100 ####[facility] [address] [place], [address] Hematocrit (Bld) [Volume fraction] 31.9 % Low 37-47 [facility] Comment on above: Performed By: #### L 500.2500, L100.0100 ####[facility] [address] [place], [address] Hemoglobin (Bld) [Mass/Vol] 9.9 g/dL Low 12.0-15.0 [facility] Comment on above: Performed By: #### L 500.2500, L100.0100 ####[facility] [address] [place], [address] IG% 2.700 High 0.0-0.9 [facility] Comment on above: Result Comment: IG% - Immature Granulocytes (promyelocytes, myelocytes andmetamyelocytes) > 1% indicates that a LEFT SHIFT is Present. Performed By: #### L 500.2500, L100.0100 ####[facility] [address] [place], [address] Lymphocytes/100 WBC (Bld) 31.1 % Normal 19-41 [facility] Comment on above: Performed By: #### L 500.2500, L100.0100 ####[facility] [address] [place], [address] MCH (RBC) [Entitic mass] 30.6 pg Normal 27.0-32.0 [facility] Comment on above: Performed By: #### L 500.2500, L100.0100 ####[facility] [address] [place], [address] MCHC (RBC) [Mass/Vol] 31.0 g/dL Low 32-36 [facility] Comment on above: Performed By: #### L 500.2500, L100.0100 ####[facility] [address] [place], [address] MCV (RBC) [Entitic vol] 98.5 fL Normal 81-99 [facility] Comment on above: Performed By: #### L 500.2500, L100.0100 ####[facility] [address] [place], [address] Monocytes/100 WBC (Bld) 7.7 % Normal 0-10 [facility] Comment on above: Performed By: #### L 500.2500, L100.0100 ####[facility] [address] [place], [address] Neutrophils/100 WBC (Bld) 55.4 % Normal 47-70 [facility] Comment on above: Performed By: #### L 500.2500, L100.0100 ####[facility] [address] [place], [address] Nucleated RBC (Bld) [#/Vol] 0 10*3/uL Normal 0-5 [facility] Comment on above: Performed By: #### L 500.2500, L100.0100 ####[facility] [address] [place], [address] Platelet mean volume (Bld) [Entitic vol] 9.0 fL Normal 6.2-12.0 [facility] Comment on above: Performed By: #### L 500.2500, L100.0100 ####[facility] [address] [place], [address] Platelets (Bld) [#/Vol] 520 10*3/uL High 150-450 [facility] Comment on above: Performed By: #### L 500.2500, L100.0100 ####[facility] [address] [place], [address] RBC (Bld) [#/Vol] 3.24 10*6/uL Low 4.2-5.4 [facility] Comment on above: Performed By: #### L 500.2500, L100.0100 ####[facility] [address] [place], [address] RDW SD 51.3 fl High 35.1-43.9 [facility] Comment on above: Performed By: #### L 500.2500, L100.0100 ####[facility] [address] [place], [address] WBC (Bld) [#/Vol] 7.0 10*3/uL Normal 4.4-11.0 [facility] Comment on above: Performed By: #### L 500.2500, L100.0100 ####[facility] [address] [place], [address] Chloride measurementOrdered By: Rancho Matthew on 10-10-2024 Chloride [Moles/Vol] 100 mmol/L 96-108 [facility] Comment on above: Performed By: #### L 500.2500 ####[facility] [address] [place], [address] HH, Hemoglobin AND Hematocri ton 10-08-2024 Hematocrit (Bld) [Volume fraction] 29.4 % Low 37-47 [facility] Comment on above: Performed By: #### L 100.0600 ####[facility] [address] [place], [address] Hemoglobin (Bld) [Mass/Vol] 9.5 g/dL Low 12.0-15.0 [facility] Comment on above: Performed By: #### L 100.0600 ####[facility] [address] [place], [address] HH, Hemoglobin AND Hematocri ton 10-06-2024 Hematocrit (Bld) [Volume fraction] 29.6 % Low 37-47 [facility] Comment on above: Performed By: #### L 100.0600 ####[facility] [address] [place], [address] Hemoglobin (Bld) [Mass/Vol] 9.0 g/dL Low 12.0-15.0 [facility] Comment on above: Performed By: #### L 100.0600 ####[facility] [address] [place], [address] Basic Metabolic Profile (BMP )on 10-04-2024 BUN/CRE 22.8 RATIO High 10-20 [facility] Comment on above: Performed By: #### L 100.0100, L500.2500 ####[facility] [address] [place], [address] CA,Total 8.5 mg/dL Normal 8.5-10.1 [facility] Comment on above: Performed By: #### L 100.0100, L500.2500 ####[facility] [address] [place], [address] Chloride [Moles/Vol] 107 mmol/L Normal 98-107 [facility] Comment on above: Performed By: #### L 100.0100, L500.2500 ####[facility] [address] [place], [address] CO2 [Moles/Vol] 28.0 mmol/L Normal 21.0-32.0 [facility] Comment on above: Performed By: #### L 100.0100, L500.2500 ####[facility] [address] [place], [address] Creatinine [Mass/Vol] 0.79 mg/dL Normal 0.55-1.02 [facility] Comment on above: Result Comment: The validity of the calculated GFR GFRAA in patients over70 years has not been determined. Clinical correlation isessential. Performed By: #### L 100.0100, L500.2500 ####[facility] [address] [place], [address] ECRCL 58.09 ml/min Normal [facility] Comment on above: Performed By: #### L 100.0100, L500.2500 ####[facility] [address] [place], [address] EST GFR - AA 90 mL/min Normal >60 [facility] Comment on above: Result Comment: Afri can Israeli GFR Calc Performed By: #### L 100.0100, L500.2500 ####[facility] [address] [place], [address] GAP 4 Low 5-15 [facility] Comment on above: Performed By: #### L 100.0100, L500.2500 ####[facility] [address] [place], [address] GFR/1.73 sq M.predicted among non-blacks MDRD (S/P/Bld) [Vol rate/Area] 74 mL/min/{1.73_m2} Normal >60 [facility] Comment on above: Result Comment: Non- GFR Calc Performed By: #### L 100.0100, L500.2500 ####[facility] [address] [place], [address] Glucose [Mass/Vol] 98 mg/dL Normal 74-106 [facility] Comment on above: Performed By: #### L 100.0100, L500.2500 ####[facility] [address] [place], [address] Potassium [Moles/Vol] 4.2 mmol/L Normal 3.5-5.1 [facility] Comment on above: Performed By: #### L 100.0100, L500.2500 ####[facility] [address] [place], [address] Sodium [Moles/Vol] 139 mmol/L Normal 136-145 [facility] Comment on above: Performed By: #### L 100.0100, L500.2500 ####[facility] [address] [place], [address] Urea nitrogen [Mass/Vol] 18 mg/dL Normal 7-18 [facility] Comment on above: Performed By: #### L 100.0100, L500.2500 ####[facility] [address] [place], [address] CBC W/Diff, Automatedon 09-14 Absolute Lymph 1.44 X10 3/uL Normal 0.83-4.51 [facility] Comment on above: Performed By: #### L 100.0100, L500.2500 ####[facility] [address] [place], [address] Absolute Neut 3.9 X10 3/uL Normal 2.0-7.7 [facility] Comment on above: Performed By: #### L 100.0100, L500.2500 ####[facility] [address] [place], [address] Basophils/100 WBC (Bld) 0.9 % Normal 0-1 [facility] Comment on above: Performed By: #### L 100.0100, L500.2500 ####[facility] [address] [place], [address] Eosinophils/100 WBC (Bld) 4.2 % Normal 0-5 [facility] Comment on above: Performed By: #### L 100.0100, L500.2500 ####[facility] [address] [place], [address] Erythrocyte distribution width (RBC) [Ratio] 13.8 % Normal 11.6-14.6 [facility] Comment on above: Performed By: #### L 100.0100, L500.2500 ####[facility] [address] [place], [address] Hematocrit (Bld) [Volume fraction] 27.7 % Low 37-47 [facility] Comment on above: Performed By: #### L 100.0100, L500.2500 ####[facility] [address] [place], [address] Hemoglobin (Bld) [Mass/Vol] 9.0 g/dL Low 12.0-15.0 [facility] Comment on above: Performed By: #### L 100.0100, L500.2500 ####[facility] [address] [place], [address] IG% 1.400 High 0.0-0.9 [facility] Comment on above: Result Comment: IG% - Immature Granulocytes (promyelocytes, myelocytes andmetamyelocytes) > 1% indicates that a LEFT SHIFT is Present. Performed By: #### L 100.0100, L500.2500 ####[facility] [address] [place], [address] Lymphocytes/100 WBC (Bld) 22.4 % Normal 19-41 [facility] Comment on above: Performed By: #### L 100.0100, L500.2500 ####[facility] [address] [place], [address] MCH (RBC) [Entitic mass] 31.1 pg Normal 27.0-32.0 [facility] Comment on above: Performed By: #### L 100.0100, L500.2500 ####[facility] [address] [place], [address] MCHC (RBC) [Mass/Vol] 32.5 g/dL Normal 32-36 [facility] Comment on above: Performed By: #### L 100.0100, L500.2500 ####[facility] [address] [place], [address] MCV (RBC) [Entitic vol] 95.8 fL Normal 81-99 [facility] Comment on above: Performed By: #### L 100.0100, L500.2500 ####[facility] [address] [place], [address] Monocytes/100 WBC (Bld) 10.9 % High 0-10 [facility] Comment on above: Performed By: #### L 100.0100, L500.2500 ####[facility] [address] [place], [address] Neutrophils/100 WBC (Bld) 60.2 % Normal 47-70 [facility] Comment on above: Performed By: #### L 100.0100, L500.2500 ####[facility] [address] [place], [address] Nucleated RBC (Bld) [#/Vol] 0 10*3/uL Normal 0-5 [facility] Comment on above: Performed By: #### L 100.0100, L500.2500 ####[facility] [address] [place], [address] Platelet mean volume (Bld) [Entitic vol] 10.0 fL Normal 6.2-12.0 [facility] Comment on above: Performed By: #### L 100.0100, L500.2500 ####[facility] [address] [place], [address] Platelets (Bld) [#/Vol] 297 10*3/uL Normal 150-450 [facility] Comment on above: Performed By: #### L 100.0100, L500.2500 ####[facility] [address] [place], [address] RBC (Bld) [#/Vol] 2.89 10*6/uL Low 4.2-5.4 [facility] Comment on above: Performed By: #### L 100.0100, L500.2500 ####[facility] [address] [place], [address] RDW SD 48.1 fl High 35.1-43.9 [facility] Comment on above: Performed By: #### L 100.0100, L500.2500 ####[facility] [address] [place], [address] WBC (Bld) [#/Vol] 6.4 10*3/uL Normal 4.4-11.0 [facility] Comment on above: Performed By: #### L 100.0100, L500.2500 ####[facility] [address] [place], [address] Urine Cultureon 10-04-2024 URC Normal [facility] Comment on above: Performed By: #### M 100.2200, L400.2010 ####[facility] [address] [place], [address] CBC-Complete Blood Cnt No Di ffon 10-03-2024 Erythrocyte distribution width (RBC) [Ratio] 13.8 % Normal 11.6-14.6 [facility] Comment on above: Performed By: #### L 100.0500 ####[facility] [address] [place], [address] Hematocrit (Bld) [Volume fraction] 30.2 % Low 37-47 [facility] Comment on above: Performed By: #### L 100.0500 ####[facility] [address] [place], [address] Hemoglobin (Bld) [Mass/Vol] 9.8 g/dL Low 12.0-15.0 [facility] Comment on above: Performed By: #### L 100.0500 ####[facility] [address] [place], [address] MCH (RBC) [Entitic mass] 31.3 pg Normal 27.0-32.0 [facility] Comment on above: Performed By: #### L 100.0500 ####[facility] [address] [place], [address] MCHC (RBC) [Mass/Vol] 32.5 g/dL Normal 32-36 [facility] Comment on above: Performed By: #### L 100.0500 ####[facility] [address] [place], [address] MCV (RBC) [Entitic vol] 96.5 fL Normal 81-99 [facility] Comment on above: Performed By: #### L 100.0500 ####[facility] [address] [place], [address] Platelet mean volume (Bld) [Entitic vol] 10.2 fL Normal 6.2-12.0 [facility] Comment on above: Performed By: #### L 100.0500 ####[facility] [address] [place], [address] Platelets (Bld) [#/Vol] 297 10*3/uL Normal 150-450 [facility] Comment on above: Performed By: #### L 100.0500 ####[facility] [address] [place], [address] RBC (Bld) [#/Vol] 3.13 10*6/uL Low 4.2-5.4 [facility] Comment on above: Performed By: #### L 100.0500 ####[facility] [address] [place], [address] RDW SD 48.8 fl High 35.1-43.9 [facility] Comment on above: Performed By: #### L 100.0500 ####[facility] [address] [place], [address] WBC (Bld) [#/Vol] 8.4 10*3/uL Normal 4.4-11.0 [facility] Comment on above: Performed By: #### L 100.0500 ####[facility] [address] [place], [address] Erythrocyte distribution wid th ratioOrdered By: Monica Duffy on 10-03-2024 Erythrocyte distribution width (RBC) [Ratio] 13.8 % 11.6-14.6 [facility] Erythrocyte distribution wid th standard deviationOrdered By: Monica Duffy on 10-03-2024 Erythrocyte distribution width (RBC) [Entitic vol] 48.8 fL High 35.1-43.9 [facility] Erythrocyte distribution width (RBC) [Ratio] 48.8 fl High 35.1-43.9 [facility] Hematocrit Auto (Bld) [Volum e fraction]Ordered By: Monica Duffy on 10-03-2024 Hematocrit (Bld) [Volume fraction] 30.2 % Low 37-47 [facility] Hemoglobin measurementOrdere d By: Monica Duffy on 10-03-2024 Hemoglobin (Bld) [Mass/Vol] 9.8 g/dL Low 12.0-15.0 [facility] MCV (mean corpuscular volume ) determinationOrdered By: Monica Duffy on 10-03-2024 MCV (RBC) [Entitic vol] 96.5 fL 81-99 [facility] Mean corpuscular hemoglobin (MCH) determinationOrdered By: Monica Duffy on 10-03-2024 MCH (RBC) [Entitic mass] 31.3 pg 27.0-32.0 [facility] Mean corpuscular hemoglobin concentration (MCHC) determinationOrdered By: Monica Duffy on 10-03-2024 MCHC (RBC) [Mass/Vol] 32.5 g/dL 32-36 [facility] Comment on above: Delta: 30.8 on 10/02 Mean platelet volume determi nationOrdered By: Monica Duffy on 10-03-2024 Platelet mean volume (Bld) [Entitic vol] 10.2 fL 6.2-12.0 [facility] Platelet countOrdered By: Sherrie Duffy on 10-03-2024 Platelets (Bld) [#/Vol] 297 10*3/uL 150-450 [facility] RBC Auto (Bld) [#/Vol]Ordere d By: Monica Duffy on 10-03-2024 RBC (Bld) [#/Vol] 3.13 10*6/uL Low 4.2-5.4 [facility] White blood cell (WBC) count Ordered By: Monica Duffy on 10-03-2024 WBC (Bld) [#/Vol] 8.4 10*3/uL 4.4-11.0 [facility] CBC-Complete Blood Cnt No Di ffon 10-02-2024 Erythrocyte distribution width (RBC) [Ratio] 13.9 % Normal 11.6-14.6 [facility] Comment on above: Performed By: #### L 100.0500 ####[facility] [address] [place], [address] Hematocrit (Bld) [Volume fraction] 30.2 % Low 37-47 [facility] Comment on above: Performed By: #### L 100.0500 ####[facility] [address] [place], [address] Hemoglobin (Bld) [Mass/Vol] 9.3 g/dL Low 12.0-15.0 [facility] Comment on above: Performed By: #### L 100.0500 ####[facility] [address] [place], [address] MCH (RBC) [Entitic mass] 30.2 pg Normal 27.0-32.0 [facility] Comment on above: Performed By: #### L 100.0500 ####[facility] [address] [place], [address] MCHC (RBC) [Mass/Vol] 30.8 g/dL Low 32-36 [facility] Comment on above: Performed By: #### L 100.0500 ####[facility] [address] [place], [address] MCV (RBC) [Entitic vol] 98.1 fL Normal 81-99 [facility] Comment on above: Performed By: #### L 100.0500 ####[facility] [address] [place], [address] Platelet mean volume (Bld) [Entitic vol] 10.0 fL Normal 6.2-12.0 [facility] Comment on above: Performed By: #### L 100.0500 ####[facility] [address] [place], [address] Platelets (Bld) [#/Vol] 217 10*3/uL Normal 150-450 [facility] Comment on above: Performed By: #### L 100.0500 ####[facility] [address] [place], [address] RBC (Bld) [#/Vol] 3.08 10*6/uL Low 4.2-5.4 [facility] Comment on above: Performed By: #### L 100.0500 ####[facility] [address] [place], [address] RDW SD 50.3 fl High 35.1-43.9 [facility] Comment on above: Performed By: #### L 100.0500 ####[facility] [address] [place], [address] WBC (Bld) [#/Vol] 9.7 10*3/uL Normal 4.4-11.0 [facility] Comment on above: Performed By: #### L 100.0500 ####[facility] [address] [place], [address] Urinalysis, Completeon 10-02 RBC 0-5 SEEN Normal 0-5 [facility] Comment on above: Order Comment: CLEAN CATCH Performed By: #### L 400.0001 ####[facility] [address] [place], [address] BACTERIA 1+ /hpf Normal None Seen [facility] Comment on above: Order Comment: CLEAN CATCH Performed By: #### L 400.0001 ####[facility] [address] [place], [address] EPI,SQUAMOUS 0-5 SEEN Normal 5-10 [facility] Comment on above: Order Comment: CLEAN CATCH Performed By: #### L 400.0001 ####[facility] [address] [place], [address] WBC 0-5 SEEN Normal 0-5 [facility] Comment on above: Order Comment: CLEAN CATCH Performed By: #### L 400.0001 ####[facility] [address] [place], [address] Mucus Ql (Urine sed) 0 SEEN Normal [facility] Comment on above: Order Comment: CLEAN CATCH Performed By: #### L 400.0001 ####[facility] [address] [place], [address] Bilirubin Test strip Ql (U)O rdered By: Alise White on 10-01-2024 Bilirubin Ql (U) Negative Negative [facility] CBC-Complete Blood Cnt No Di ffon 10-01-2024 Erythrocyte distribution width (RBC) [Ratio] 13.7 % Normal 11.6-14.6 [facility] Comment on above: Performed By: #### L 100.0500 ####[facility] [address] [place], [address] Hematocrit (Bld) [Volume fraction] 32.0 % Low 37-47 [facility] Comment on above: Performed By: #### L 100.0500 ####[facility] [address] [place], [address] Hemoglobin (Bld) [Mass/Vol] 10.2 g/dL Low 12.0-15.0 [facility] Comment on above: Performed By: #### L 100.0500 ####[facility] [address] [place], [address] MCH (RBC) [Entitic mass] 30.4 pg Normal 27.0-32.0 [facility] Comment on above: Performed By: #### L 100.0500 ####[facility] [address] [place], [address] MCHC (RBC) [Mass/Vol] 31.9 g/dL Low 32-36 [facility] Comment on above: Performed By: #### L 100.0500 ####[facility] [address] [place], [address] MCV (RBC) [Entitic vol] 95.2 fL Normal 81-99 [facility] Comment on above: Performed By: #### L 100.0500 ####[facility] [address] [place], [address] Platelet mean volume (Bld) [Entitic vol] 10.3 fL Normal 6.2-12.0 [facility] Comment on above: Performed By: #### L 100.0500 ####[facility] [address] [place], [address] Platelets (Bld) [#/Vol] 216 10*3/uL Normal 150-450 [facility] Comment on above: Performed By: #### L 100.0500 ####[facility] [address] [place], [address] RBC (Bld) [#/Vol] 3.36 10*6/uL Low 4.2-5.4 [facility] Comment on above: Performed By: #### L 100.0500 ####[facility] [address] [place], [address] RDW SD 47.8 fl High 35.1-43.9 [facility] Comment on above: Performed By: #### L 100.0500 ####[facility] [address] [place], [address] WBC (Bld) [#/Vol] 9.8 10*3/uL Normal 4.4-11.0 [facility] Comment on above: Performed By: #### L 100.0500 ####[facility] [address] [place], [place], [address] Epithelial cells.squamous LM Ql (Urine sed)Ordered By: Alise White on 10-01-2024 Epithelial cells.squamous LM.HPF (Urine sed) [#/Area] 0 /[HPF] 5-10 [facility] Glucose Ql (U)Ordered By: Gracie esther White on 10-01-2024 Urine Glucose (UA) Normal mg/dl Normal [facility] Ketones Test strip Ql (U)Ord ered By: Alise White on 10-01-2024 Ketones Ql (U) Negative Negative [facility] Microscopic analysis of urin e for red blood cells (RBC)Ordered By: Alise White on 10-01-2024 Microscopic analysis of urine for red blood cells (RBC) 0-5 SEEN /hpf 0-5 [facility] Urine RBC 0-5 SEEN /hpf 0-5 [facility] Mucus LM Ql (Urine sed)Order ed By: Alise White on 10-01-2024 Mucus Ql (Urine sed) 0 SEEN /hpf [facility] Nitrite Test strip Ql (U)Ord ered By: Alise White on 10-01-2024 Nitrite Ql (U) Negative Negative [facility] Protein Test strip Ql (U)Ord ered By: Alise White on 10-01-2024 Protein Ql (U) 30 mg/dl High Negative [facility] Squamous epithelial cells de tection in urine sediment by light microscopyOrdered By: Alise White on 10-01-2024 Epithelial cells.squamous LM Ql (Urine sed) 0-5 SEEN /hpf 5-10 [facility] Urinalysis, Routine (Dipstic k)on 10-01-2024 BILIRUBIN URINE Normal Negative [facility] Comment on above: Order Comment: CLEAN CATCH Result Comment: COMP LETE UA DONE INSTEAD Performed By: #### M 100.2200, L400.2010 ####[facility] [address] [place], [place], [id number] Clarity (U) Normal Clear [facility] Comment on above: Order Comment: CLEAN CATCH Result Comment: COMP LETE UA DONE INSTEAD Performed By: #### M .2199, L4 ####[facility] [address] [place], [address] Color (U) Normal Yellow [facility] Comment on above: Order Comment: CLEAN CATCH Result Comment: COMP LETE UA DONE INSTEAD Performed By: #### M .2199, L4 ####[facility] [address] [place], [address] GLUCOSE, UR Normal Normal [facility] Comment on above: Order Comment: CLEAN CATCH Result Comment: COMP LETE UA DONE INSTEAD Performed By: #### M , L4 ####[facility] [address] [place], [address] KETONE UR Normal Negative [facility] Comment on above: Order Comment: CLEAN CATCH Result Comment: COMP LETE UA DONE INSTEAD Performed By: #### M , L4 ####[facility] [address] [place], [address] LEUK ESTERASE Normal Negative [facility] Comment on above: Order Comment: CLEAN CATCH Result Comment: COMP LETE UA DONE INSTEAD Performed By: #### M , L4 ####[facility] [address] [place], [address] Nitrite Ql (U) Normal Negative [facility] Comment on above: Order Comment: CLEAN CATCH Result Comment: COMP LETE UA DONE INSTEAD Performed By: #### M , L4 ####[facility] [address] [place], [address] OCCULT BLOOD-UR Normal Negative [facility] Comment on above: Order Comment: CLEAN CATCH Result Comment: COMP LETE UA DONE INSTEAD Performed By: #### M .2199, L4 ####[facility] [address] [place], [address] pH UR Normal 5.0 - 8.0 [facility] Comment on above: Order Comment: CLEAN CATCH Result Comment: COMP LETE UA DONE INSTEAD Performed By: #### M 100.0, L4.2010 ####[facility] [address] [place], [address] PROT DIPSTX Normal Negative [facility] Comment on above: Order Comment: CLEAN CATCH Result Comment: COMP LETE UA DONE INSTEAD Performed By: #### M 100.2199, L4.2010 ####[facility] [address] [place], [address] SP.GR. DIPSTX Normal 1.002-1.030 [facility] Comment on above: Order Comment: CLEAN CATCH Result Comment: COMP LETE UA DONE INSTEAD Performed By: #### M 100.2199, L4.2010 ####[facility] [address] [place], [address] UR Preservative Normal [facility] Comment on above: Order Comment: CLEAN CATCH Result Comment: COMP LETE UA DONE INSTEAD Performed By: #### M 100.2199, L400.2010 ####[facility] [address] [place], [address] UROBILI Normal Normal [facility] Comment on above: Order Comment: CLEAN CATCH Result Comment: COMP LETE UA DONE INSTEAD Performed By: #### M .2199, L4.2010 ####[facility] [address] [place], [address] Urine blood detectionOrdered By: White on 10-01-2024 Urine Occult Blood 10 /ul High Negative [facility] Urine clarityOrdered By: Aut umn White on 10-01-2024 Clarity (U) Clear Clear [facility] Urine color determinationOrd ered By: White on 10-01-2024 Color (U) Yellow Yellow [facility] Urine cultureOrdered By: Aut umn White on 10-01-2024 Bacteria identified Cx Nom (U) Klebsiella pneumoniae sp pneum Abnormal [facility] Bacteria identified Cx Nom (U) Pseudomonas aeruginosa Abnormal [facility] Urine glucose detectionOrder ed By: Alise Vieira on 10-01-2024 Glucose Ql (U) Normal mg/dl Normal [facility] Urine leukocyte esterase det ection by dipstickOrdered By: Alise Vieira on 10-01-2024 Leukocyte esterase Test strip Ql (U) Negative Negative [facility] Urine pHOrdered By: W lucie on 10-01-2024 pH (U) 6.0 [pH] 5.0 - 8.0 [facility] Urine sediment bacteria coun t by microscopy (number/high power field)Ordered By: Alise Isha on 10-01-2024 Bacteria LM.HPF (Urine sed) [#/Area] 1 /[HPF] None Seen [facility] Urine specific gravity measu rementOrdered By: Alise Vieira on 10-01-2024 Specific gravity (U) [Rel density] 1.010 1.002-1.030 [facility] Urine urobilinogen measureme ntOrdered By: Alise Vieira on 10-01-2024 Urobilinogen Ql (U) Normal mg/dl Normal [facility] Urobilinogen Ql (U)Ordered B y: Alies Isha on 10-01-2024 Urine Urobilinogen Normal mg/dl Normal [facility] White blood cell countOrdere d By: Alise Vieira on 10-01-2024 Urine WBC 0-5 SEEN /hpf 0-5 [facility] White blood cell count 0-5 SEEN /hpf 0-5 [facility] Basic Metabolic Profile (BMP )on 09-30-2024 BUN/CRE 21.5 RATIO High 10-20 [facility] Comment on above: Performed By: #### L 500.2500, L100.0500 ####[facility] [address] [place], [place], [id number] CA,Total 8.7 mg/dL Normal 8.5-10.1 [facility] Comment on above: Performed By: #### L 500.2500, L100.0500 ####[facility] [address] [place], [address] Chloride [Moles/Vol] 103 mmol/L Normal 98-107 [facility] Comment on above: Performed By: #### L 500.2500, L100.0500 ####[facility] [address] [place], [address] CO2 [Moles/Vol] 26.0 mmol/L Normal 21.0-32.0 [facility] Comment on above: Performed By: #### L 500.2500, L100.0500 ####[facility] [address] [place], [address] Creatinine [Mass/Vol] 1.07 mg/dL High 0.55-1.02 [facility] Comment on above: Result Comment: The validity of the calculated GFR GFRAA in patients over70 years has not been determined. Clinical correlation isessential. Performed By: #### L 500.2500, L100.0500 ####[facility] [address] [place], [address] ECRCL 43.59 ml/min Normal [facility] Comment on above: Performed By: #### L 500.2500, L100.0500 ####[facility] [address] [place], [address] EST GFR - AA 63 mL/min Normal >60 [facility] Comment on above: Result Comment: Afri can Israeli GFR Calc Performed By: #### L 500.2500, L100.0500 ####[facility] [address] [place], [address] GAP 9 Normal 5-15 [facility] Comment on above: Performed By: #### L 500.2500, L100.0500 ####[facility] [address] [place], [address] GFR/1.73 sq M.predicted among non-blacks MDRD (S/P/Bld) [Vol rate/Area] 52 mL/min/{1.73_m2} Low >60 [facility] Comment on above: Result Comment: Non- GFR Calc Performed By: #### L 500.2500, L100.0500 ####[facility] [address] [place], [address] Glucose [Mass/Vol] 136 mg/dL High 74-106 [facility] Comment on above: Result Comment: Fast ing Glucose result greater than or equal to 126 mg/dLsuggests DIABETES MELLITUS per A.D.A. criteria. Performed By: #### L 500.2500, L100.0500 ####[facility] [address] [place], [address] Potassium [Moles/Vol] 4.6 mmol/L Normal 3.5-5.1 [facility] Comment on above: Performed By: #### L 500.2500, L100.0500 ####[facility] [address] [place], [address] Sodium [Moles/Vol] 138 mmol/L Normal 136-145 [facility] Comment on above: Performed By: #### L 500.2500, L100.0500 ####[facility] [address] [place], [address] Urea nitrogen [Mass/Vol] 23 mg/dL High 7-18 [facility] Comment on above: Performed By: #### L 500.2500, L100.0500 ####[facility] [address] [place], [address] Blood urea nitrogen (BUN)/cr eatinine ratioOrdered By: Alondra Rm on 09-30-2024 Urea nitrogen/Creatinine [Mass ratio] 21.5 mg/mg High 10-20 [facility] CBC-Complete Blood Cnt No Di ffon 09-30-2024 Erythrocyte distribution width (RBC) [Ratio] 13.4 % Normal 11.6-14.6 [facility] Comment on above: Performed By: #### L 500.2500, L100.0500 ####[facility] [address] [place], [address] Hematocrit (Bld) [Volume fraction] 33.3 % Low 37-47 [facility] Comment on above: Performed By: #### L 500.2500, L100.0500 ####[facility] [address] [place], [address] Hemoglobin (Bld) [Mass/Vol] 10.3 g/dL Low 12.0-15.0 [facility] Comment on above: Performed By: #### L 500.2500, L100.0500 ####[facility] [address] [place], [address] MCH (RBC) [Entitic mass] 29.9 pg Normal 27.0-32.0 [facility] Comment on above: Performed By: #### L 500.2500, L100.0500 ####[facility] [address] [place], [address] MCHC (RBC) [Mass/Vol] 30.9 g/dL Low 32-36 [facility] Comment on above: Performed By: #### L 500.2500, L100.0500 ####[facility] [address] [place], [address] MCV (RBC) [Entitic vol] 96.5 fL Normal 81-99 [facility] Comment on above: Performed By: #### L 500.2500, L100.0500 ####[facility] [address] [place], [address] Platelet mean volume (Bld) [Entitic vol] 10.0 fL Normal 6.2-12.0 [facility] Comment on above: Performed By: #### L 500.2500, L100.0500 ####[facility] [address] [place], [address] Platelets (Bld) [#/Vol] 252 10*3/uL Normal 150-450 [facility] Comment on above: Performed By: #### L 500.2500, L100.0500 ####[facility] [address] [place], [address] RBC (Bld) [#/Vol] 3.45 10*6/uL Low 4.2-5.4 [facility] Comment on above: Performed By: #### L 500.2500, L100.0500 ####[facility] [address] [place], [address] RDW SD 47.2 fl High 35.1-43.9 [facility] Comment on above: Performed By: #### L 500.2500, L100.0500 ####[facility] [address] [place], [address] WBC (Bld) [#/Vol] 12.7 10*3/uL High 4.4-11.0 [facility] Comment on above: Performed By: #### L 500.2500, L100.0500 ####[facility] [address] [place], [address] Carbon dioxide measurementOr dered By: Alondra Rm on 09-30-2024 CO2 [Moles/Vol] 26.0 mmol/L 21.0-32.0 [facility] Chloride measurementOrdered By: Alondra Rm on 09-30-2024 Chloride [Moles/Vol] 103 mmol/L 98-107 [facility] Estimated glomerular filtrat ion rate (GFR) AmericanOrdered By: Alondra Rm on 09-30-2024 Estimated GFR (MDRD) Amer 63 mL/min >60 [facility] Comment on above: GFR Calc Estimation of creatinine oj aranceOrdered By: Alondra Rm on 09-30-2024 Estimated Creatinine Clearance Calc 43.59 ml/min [facility] Glomerular filtration rate ( GFR) estimationOrdered By: Alondra Rm on 09-30-2024 Estimated GFR (MDRD) Non-Af Amer 52 mL/min Low >60 [facility] Comment on above: Non- GFR Calc GFR/1.73 sq M.predicted among non-blacks MDRD (S/P/Bld) [Vol rate/Area] 52 mL/min/{1.73_m2} Low >60 [facility] Comment on above: Non- GFR Calc Glucose measurementOrdered B y: Alondra Rm on 09-30-2024 Glucose [Mass/Vol] 136 mg/dL High 74-106 [facility] Comment on above: Fasting Glucose resu lt greater than or equal to 126 mg/dL suggests DIABETES MELLITUS per A.D.A. criteria. Potassium measurementOrdered By: Alondra Rm on 09-30-2024 Potassium [Moles/Vol] 4.6 mmol/L 3.5-5.1 [facility] Serum anion gap measurementO rdered By: Alondra Rm on 09-30-2024 Anion gap [Moles/Vol] 9 mmol/L 5-15 [facility] Serum or plasma calcium andrew urement (mass/volume)Ordered By: Alondra Rm on 09-30-2024 Calcium [Mass/Vol] 8.7 mg/dL 8.5-10.1 [facility] Serum or plasma creatinine m easurement (mass/volume)Ordered By: Alondra Rm on 09-30-2024 Creatinine [Mass/Vol] 1.07 mg/dL High 0.55-1.02 [facility] Comment on above: The validity of the calculated GFR & GFRAA in patients over 70 years has not been determined. Clinical correlation is essential. Serum or plasma urea nitroge n measurement (mass/volume)Ordered By: Alondra Rm on 09-30-2024 Urea nitrogen [Mass/Vol] 23 mg/dL High 7-18 [facility] Sodium levelOrdered By: Elia Rm on 09-30-2024 Sodium [Moles/Vol] 138 mmol/L 136-145 [facility] Bedside Glucoseon 09-29-2024 FINGERSTICK GLU 79 mg/dL Normal 74-106 [facility] Comment on above: Result Comment: ALINA TENA OF PATIENT CARE PER NURSING PROTOCOL Performed By: #### L 501.080 ####[facility] [address] [place], [address] Decalcification bone/plaqueo n 09-29-2024 Decalcification bone/plaque Normal [facility] Comment on above: Performed By: #### P DEC ####[facility] [address] [place], [address] Gl[facility] deOrdered By: Alondra Rm on 09-29-2024 Bedside Glucose (Misc Panel) 79 mg/dL 74-106 [facility] Comment on above: MANAGEMENT OF PATIEN T CARE PER NURSING PROTOCOL Glucose [Mass/Vol] 79 mg/dL 74-106 [facility] Comment on above: MANAGEMENT OF PATIEN T CARE PER NURSING PROTOCOL Hip 1 view with Pelvison Hip 1 view with Pelvis Normal [facility] Hip Min 2 Views (Portable)on 09-29-2024 Hip Min 2 Views (Portable) Normal [facility] MR/POSTOP.ANEon 09-29-2024 MR/POSTOP.ANE Normal [facility] MR/IVWLPVLD1ms 09-29-2024 MR/POSTOPAN2 Normal [facility] Operative Reporton Operative Report Normal [facility] MRSA/SAID NASAL SCREENon MRSA+SAID SCRN Reason for Exam: Gregor roman MRSA MRSA Negative S. AUREUS S. aureus Negative Normal [facility] Comment on above: Performed By: #### L 500.2500, L100.0100, M100.651 ####[facility] [address] [place], [address] 85-RX-Ywvskkb DOrdered By: Joseph Matthew on 09-04-2024 Vitamin D 25-Hydroxy 13.4 ng/mL [facility] Comment on above: Vitamin D 25(OH) Sta tus Range Deficiency <20 ng/mL (50nmol/L) Insufficiency 20 - 30 ng/mL (50 - 75 nmol/L) Sufficiency 30 - 100 ng/mL (75 - 250 nmol/L) Toxicity >100 ng/mL (>250 nmol/L) Absolute lymphocyte countOrd ered By: Rancho Matthew on 09-04-2024 Lymphocytes Auto (Unsp spec) [#/Vol] 1.77 10*3/uL 0.83-4.51 [facility] Absolute neutrophil countOrd ered By: Rancho Matthew on 09-04-2024 Neutrophils (Bld) [#/Vol] 3.9 10*3/uL 2.0-7.7 [facility] Activated partial thrombopla stin time (aPTT) in platelet poor plasma by coagulation aOrdered By: Ruiz Isbell on 09-04-2024 aPTT Coag (PPP) [Time] 26.7 s 24.1-36.2 [facility] Albumin to globulin ratioOrd ered By: Rancho Matthew on 09-04-2024 Albumin/Globulin [Mass ratio] 0.8 {ratio} Low 0.9-2.4 [facility] Automated lymphocyte count a s percentage of total leukocytesOrdered By: Rancho Matthew on 09-04-2024 Lymphocytes/100 WBC Auto (Unsp spec) 28.2 % 19-41 [facility] Basic Metabolic Profile (BMP )on 09-04-2024 BUN Normal 7-18 [facility] Comment on above: Result Comment: DUP ORDER Performed By: #### L 500.2500, L100.0100, M100.651 ####[facility] [address] [place], [address] BUN/CRE Normal 10-20 [facility] Comment on above: Result Comment: DUP ORDER Performed By: #### L 500.2500, L100.0100, M100.651 ####[facility] [address] [place], [address] CA,Total Normal 8.5-10.1 [facility] Comment on above: Result Comment: DUP ORDER Performed By: #### L 500.2500, L100.0100, M100.651 ####[facility] [address] [place], [address] CL Normal 98-107 [facility] Comment on above: Result Comment: DUP ORDER Performed By: #### L 500.2500, L100.0100, M100.651 ####[facility] [address] [place], [address] CO2 Normal 21.0-32.0 [facility] Comment on above: Result Comment: DUP ORDER Performed By: #### L 500.2500, L100.0100, M100.651 ####[facility] [address] [place], [address] CREAT,SERUM Normal 0.55-1.02 [facility] Comment on above: Result Comment: DUP ORDER Performed By: #### L 500.2500, L100.0100, M100.651 ####[facility] [address] [place], [address] EST GFR Normal >60 [facility] Comment on above: Result Comment: DUP ORDER Performed By: #### L 500.2500, L100.0100, M100.651 ####[facility] [address] [place], [address] EST GFR - AA Normal >60 [facility] Comment on above: Result Comment: DUP ORDER Performed By: #### L 500.2500, L100.0100, M100.651 ####[facility] [address] [place], [address] GAP Normal 5-15 [facility] Comment on above: Result Comment: DUP ORDER Performed By: #### L 500.2500, L100.0100, M100.651 ####[facility] [address] [place], [address] GLU Normal 74-106 [facility] Comment on above: Result Comment: DUP ORDER Performed By: #### L 500.2500, L100.0100, M100.651 ####[facility] [address] [place], [address] Potassium Normal 3.5-5.1 [facility] Comment on above: Result Comment: DUP ORDER Performed By: #### L 500.2500, L100.0100, M100.651 ####[facility] [address] [place], [address] Basic Metabolic Profile (BMP) Normal 136-145 [facility] Comment on above: Result Comment: DUP ORDER Performed By: #### L 500.2500, L100.0100, M100.651 ####[facility] [address] [place], [address] Basophil percentageOrdered B y: Rancho Matthew on 09-04-2024 Basophils/100 WBC (Bld) 1.1 % High 0-1 [facility] Bilirubin directOrdered By: Ruiz Isbell on 09-04-2024 Bilirubin.direct [Mass/Vol] 0.06 mg/dL 0.00-0.30 [facility] Bilirubin, Directon 09-04-19 25 Bilirubin.direct [Mass/Vol] 0.06 mg/dL Normal 0.00-0.30 [facility] Comment on above: Order Comment: CC PT AND PTT TO DR. MATTHEW Performed By: #### L 501.4700, L300.3900, L501.5200, L300.4310 ####[facility] [address] [place], [address] Bilirubin, totalOrdered By: Rancho Matthew on 09-04-2024 Bilirubin [Mass/Vol] 0.30 mg/dL 0.20-1.00 [facility] Comment on above: For patients on eltr ombopag therapy, use of Dimension [employer] TBIL is not recommended. Blood urea nitrogen (BUN)/cr eatinine ratioOrdered By: Rancho Matthew on 09-04-2024 Urea nitrogen/Creatinine [Mass ratio] 20.5 mg/mg High 06-01 [facility] CBC W/Diff, Automatedon 08-14 Absolute Lymph 1.77 X10 3/uL Normal 0.83-4.51 [facility] Comment on above: Order Comment: CC TO DR. ALONDRA RM AND DR. RUIZ MORENO Performed By: #### L 500.4100, L506.1000, L100.0100, L500.4050, L501.9520 ####[facility] [address] [place], [address] Absolute Neut 3.9 X10 3/uL Normal 2.0-7.7 [facility] Comment on above: Order Comment: CC TO DR. ALONDRA RM AND DR. RUIZ MORENO Performed By: #### L 500.4100, L506.1000, L100.0100, L500.4050, L501.9520 ####[facility] [address] [place], [address] Basophils/100 WBC (Bld) 1.1 % High 0-1 [facility] Comment on above: Order Comment: CC TO DR. ALONDRA RM AND DR. RUIZ MORENO Performed By: #### L 500.4100, L506.1000, L100.0100, L500.4050, L501.9520 ####[facility] [address] [place], [address] Eosinophils/100 WBC (Bld) 2.5 % Normal 0-5 [facility] Comment on above: Order Comment: CC TO DR. ALONDRA RM AND DR. RUIZ MORENO Performed By: #### L 500.4100, L506.1000, L100.0100, L500.4050, L501.9520 ####[facility] [address] [place], [address] Erythrocyte distribution width (RBC) [Ratio] 13.3 % Normal 11.6-14.6 [facility] Comment on above: Order Comment: CC TO DR. ALONDRA RM AND DR. RUIZ MORENO Performed By: #### L 500.4100, L506.1000, L100.0100, L500.4050, L501.9520 ####[facility] [address] [place], [address] Hematocrit (Bld) [Volume fraction] 39.5 % Normal 37-47 [facility] Comment on above: Order Comment: CC TO DR. ALONDRA RM AND DR. RUIZ MORENO Performed By: #### L 500.4100, L506.1000, L100.0100, L500.4050, L501.9520 ####[facility] [address] [place], [address] Hemoglobin (Bld) [Mass/Vol] 12.9 g/dL Normal 12.0-15.0 [facility] Comment on above: Order Comment: CC TO DR. ALONDRA RM AND DR. RUIZ MORENO Performed By: #### L 500.4100, L506.1000, L100.0100, L500.4050, L501.9520 ####[facility] [address] [place], [address] IG% 0.300 Normal 0.0-0.9 [facility] Comment on above: Order Comment: CC TO DR. ALONDRA RM AND DR. RUIZ MORENO Result Comment: IG% - Immature Granulocytes (promyelocytes, myelocytes andmetamyelocytes) > 1% indicates that a LEFT SHIFT is Present. Performed By: #### L 500.4100, L506.1000, L100.0100, L500.4050, L501.9520 ####[facility] [address] [place], [address] Lymphocytes/100 WBC (Bld) 28.2 % Normal 19-41 [facility] Comment on above: Order Comment: CC TO DR. ALONDRA RM AND DR. RUIZ MORENO Performed By: #### L 500.4100, L506.1000, L100.0100, L500.4050, L501.9520 ####[facility] [address] [place], [address] MCH (RBC) [Entitic mass] 30.7 pg Normal 27.0-32.0 [facility] Comment on above: Order Comment: CC TO DR. ALONDRA RM AND DR. RUIZ MORENO Performed By: #### L 500.4100, L506.1000, L100.0100, L500.4050, L501.9520 ####[facility] [address] [place], [address] MCHC (RBC) [Mass/Vol] 32.7 g/dL Normal 32-36 [facility] Comment on above: Order Comment: CC TO DR. ALONDRA RM AND DR. RUIZ MORENO Performed By: #### L 500.4100, L506.1000, L100.0100, L500.4050, L501.9520 ####[facility] [address] [place], [address] MCV (RBC) [Entitic vol] 94.0 fL Normal 81-99 [facility] Comment on above: Order Comment: CC TO DR. ALONDRA RM AND DR. RUIZ MORENO Performed By: #### L 500.4100, L506.1000, L100.0100, L500.4050, L501.9520 ####[facility] [address] [place], [address] Monocytes/100 WBC (Bld) 5.7 % Normal 0-10 [facility] Comment on above: Order Comment: CC TO DR. ALONDRA RM AND DR. RUIZ MORENO Performed By: #### L 500.4100, L506.1000, L100.0100, L500.4050, L501.9520 ####[facility] [address] [place], [address] Neutrophils/100 WBC (Bld) 62.2 % Normal 47-70 [facility] Comment on above: Order Comment: CC TO DR. ALONDRA RM AND DR. RUIZ MORENO Performed By: #### L 500.4100, L506.1000, L100.0100, L500.4050, L501.9520 ####[facility] [address] [place], [address] Nucleated RBC (Bld) [#/Vol] 0 10*3/uL Normal 0-5 [facility] Comment on above: Order Comment: CC TO DR. ALONDRA RM AND DR. RUIZ MORENO Performed By: #### L 500.4100, L506.1000, L100.0100, L500.4050, L501.9520 ####[facility] [address] [place], [address] Platelet mean volume (Bld) [Entitic vol] 9.8 fL Normal 6.2-12.0 [facility] Comment on above: Order Comment: CC TO DR. ALONDRA RM AND DR. RUIZ MORENO Performed By: #### L 500.4100, L506.1000, L100.0100, L500.4050, L501.9520 ####[facility] [address] [place], [address] Platelets (Bld) [#/Vol] 279 10*3/uL Normal 150-450 [facility] Comment on above: Order Comment: CC TO DR. ALONDRA RM AND DR. RUIZ MORENO Performed By: #### L 500.4100, L506.1000, L100.0100, L500.4050, L501.9520 ####[facility] [address] [place], [address] RBC (Bld) [#/Vol] 4.20 10*6/uL Normal 4.2-5.4 [facility] Comment on above: Order Comment: CC TO DR. ALONDRA RM AND DR. RUIZ MORENO Performed By: #### L 500.4100, L506.1000, L100.0100, L500.4050, L501.9520 ####[facility] [address] [place], [address] RDW SD 45.2 fl High 35.1-43.9 [facility] Comment on above: Order Comment: CC TO DR. ALONDRA RM AND DR. RUIZ MORENO Performed By: #### L 500.4100, L506.1000, L100.0100, L500.4050, L501.9520 ####[facility] [address] [place], [address] WBC (Bld) [#/Vol] 6.3 10*3/uL Normal 4.4-11.0 [facility] Comment on above: Order Comment: CC TO DR. ALONDRA RM AND DR. RUIZ MORENO Performed By: #### L 500.4100, L506.1000, L100.0100, L500.4050, L501.9520 ####[facility] [address] [place], [address] Absolute Neut Normal 2.0-7.7 [facility] Comment on above: Result Comment: DUP ORDER Performed By: #### L 500.2500, L100.0100, M100.651 ####[facility] [address] [place], [address] HCT Normal 37-47 [facility] Comment on above: Result Comment: DUP ORDER Performed By: #### L 500.2500, L100.0100, M100.651 ####[facility] [address] [place], [address] HGB Normal 12.0-15.0 [facility] Comment on above: Result Comment: DUP ORDER Performed By: #### L 500.2500, L100.0100, M100.651 ####[facility] [address] [place], [address] MCH Normal 27.0-32.0 [facility] Comment on above: Result Comment: DUP ORDER Performed By: #### L 500.2500, L100.0100, M100.651 ####[facility] [address] [place], [address] MCHC Normal 32-36 [facility] Comment on above: Result Comment: DUP ORDER Performed By: #### L 500.2500, L100.0100, M100.651 ####[facility] [address] [place], [address] MCV Normal 81-99 [facility] Comment on above: Result Comment: DUP ORDER Performed By: #### L 500.2500, L100.0100, M100.651 ####[facility] [address] [place], [address] NEUT% Normal 47-70 [facility] Comment on above: Result Comment: DUP ORDER Performed By: #### L 500.2500, L100.0100, M100.651 ####[facility] [address] [place], [address] PLT Normal 150-450 [facility] Comment on above: Result Comment: DUP ORDER Performed By: #### L 500.2500, L100.0100, M100.651 ####[facility] [address] [place], [address] RBC Normal 4.2-5.4 [facility] Comment on above: Result Comment: DUP ORDER Performed By: #### L 500.2500, L100.0100, M100.651 ####[facility] [address] [place], [address] RDW CV Normal 11.6-14.6 [facility] Comment on above: Result Comment: DUP ORDER Performed By: #### L 500.2500, L100.0100, M100.651 ####[facility] [address] [place], [address] RDW SD Normal 35.1-43.9 [facility] Comment on above: Result Comment: DUP ORDER Performed By: #### L 500.2500, L100.0100, M100.651 ####[facility] [address] [place], [address] WBC Normal 4.4-11.0 [facility] Comment on above: Result Comment: DUP ORDER Performed By: #### L 500.2500, L100.0100, M100.651 ####[facility] [address] [place], [address] Carbon dioxide measurementOr dered By: Rancho Matthew on 09-04-2024 CO2 [Moles/Vol] 26.0 mmol/L 21.0-32.0 [facility] Chloride measurementOrdered By: Rancho Matthew on 09-04-2024 Chloride [Moles/Vol] 107 mmol/L 98-107 [facility] Comprehensive Metabolic Prof ilon 09-04-2024 Albumin [Mass/Vol] 3.4 g/dL Normal 3.2-5.0 [facility] Comment on above: Order Comment: CC TO DR. ALONDRA RM AND DR. RUIZ MORENO Performed By: #### L 500.4100, L506.1000, L100.0100, L500.4050, L501.9520 ####[facility] [address] [place], [address] Albumin/Globulin [Mass ratio] 0.8 {ratio} Low 0.9-2.4 [facility] Comment on above: Order Comment: CC TO DR. ALONDRA RM AND DR. RUIZ MORENO Performed By: #### L 500.4100, L506.1000, L100.0100, L500.4050, L501.9520 ####[facility] [address] [place], [address] ALK P 68 U/L Normal 45-117 [facility] Comment on above: Order Comment: CC TO DR. ALONDRA RM AND DR. RUIZ MORENO Performed By: #### L 500.4100, L506.1000, L100.0100, L500.4050, L501.9520 ####[facility] [address] [place], [address] ALT [Catalytic activity/Vol] 14 U/L Normal 13-56 [facility] Comment on above: Order Comment: CC TO DR. ALONDRA RM AND DR. RUIZ MORENO Performed By: #### L 500.4100, L506.1000, L100.0100, L500.4050, L501.9520 ####[facility] [address] [place], [address] AST [Catalytic activity/Vol] 17 U/L Normal 15-37 [facility] Comment on above: Order Comment: CC TO DR. ALONDRA RM AND DR. RUIZ MORENO Performed By: #### L 500.4100, L506.1000, L100.0100, L500.4050, L501.9520 ####[facility] [address] [place], [address] Bilirubin [Mass/Vol] 0.30 mg/dL Normal 0.20-1.00 [facility] Comment on above: Order Comment: CC TO DR. ALONDRA RM AND DR. RUIZ MORENO Result Comment: For patients on eltrombopag therapy, use of Dimension [employer] TBIL is not recommended. Performed By: #### L 500.4100, L506.1000, L100.0100, L500.4050, L501.9520 ####[facility] [address] [place], [address] BUN/CRE 20.5 RATIO High 10-20 [facility] Comment on above: Order Comment: CC TO DR. ALONDRA RM AND DR. RUIZ MORENO Performed By: #### L 500.4100, L506.1000, L100.0100, L500.4050, L501.9520 ####[facility] [address] [place], [address] CA,Total 9.1 mg/dL Normal 8.5-10.1 [facility] Comment on above: Order Comment: CC TO DR. ALONDRA RM AND DR. RUIZ MORENO Performed By: #### L 500.4100, L506.1000, L100.0100, L500.4050, L501.9520 ####[facility] [address] [place], [address] Chloride [Moles/Vol] 107 mmol/L Normal 98-107 [facility] Comment on above: Order Comment: CC TO DR. ALONDRA RM AND DR. RUIZ MORENO Performed By: #### L 500.4100, L506.1000, L100.0100, L500.4050, L501.9520 ####[facility] [address] [place], [address] CO2 [Moles/Vol] 26.0 mmol/L Normal 21.0-32.0 [facility] Comment on above: Order Comment: CC TO DR. ALONDRA RM AND DR. RUIZ MORENO Performed By: #### L 500.4100, L506.1000, L100.0100, L500.4050, L501.9520 ####[facility] [address] [place], [address] Creatinine [Mass/Vol] 1.12 mg/dL High 0.55-1.02 [facility] Comment on above: Order Comment: CC TO DR. ALONDRA RM AND DR. RUIZ MORENO Result Comment: The validity of the calculated GFR GFRAA in patients over70 years has not been determined. Clinical correlation isessential. Performed By: #### L 500.4100, L506.1000, L100.0100, L500.4050, L501.9520 ####[facility] [address] [place], [address] EST GFR - AA 60 mL/min Normal >60 [facility] Comment on above: Order Comment: CC TO DR. ALONDRA RM AND DR. RUIZ MORENO Result Comment: Afri can Israeli GFR Calc Performed By: #### L 500.4100, L506.1000, L100.0100, L500.4050, L501.9520 ####[facility] [address] [place], [address] GAP 7 Normal 5-15 [facility] Comment on above: Order Comment: CC TO DR. ALONDRA RM AND DR. RUIZ MORENO Performed By: #### L 500.4100, L506.1000, L100.0100, L500.4050, L501.9520 ####[facility] [address] [place], [address] GFR/1.73 sq M.predicted among non-blacks MDRD (S/P/Bld) [Vol rate/Area] 50 mL/min/{1.73_m2} Low >60 [facility] Comment on above: Order Comment: CC TO DR. ALONDRA RM AND DR. RUIZ MORENO Result Comment: Non- GFR Calc Performed By: #### L 500.4100, L506.1000, L100.0100, L500.4050, L501.9520 ####[facility] [address] [place], [address] Globulin (S) [Mass/Vol] 4.1 g/dL Normal 2.2-4.2 [facility] Comment on above: Order Comment: CC TO DR. ALONDRA RM AND DR. RUIZ MORENO Performed By: #### L 500.4100, L506.1000, L100.0100, L500.4050, L501.9520 ####[facility] [address] [place], [address] Glucose [Mass/Vol] 80 mg/dL Normal 74-106 [facility] Comment on above: Order Comment: CC TO DR. ALONDRA RM AND DR. RUIZ MORENO Performed By: #### L 500.4100, L506.1000, L100.0100, L500.4050, L501.9520 ####[facility] [address] [place], [address] Potassium [Moles/Vol] 4.4 mmol/L Normal 3.5-5.1 [facility] Comment on above: Order Comment: CC TO DR. ALONDRA RM AND DR. RUIZ MORENO Performed By: #### L 500.4100, L506.1000, L100.0100, L500.4050, L501.9520 ####[facility] [address] [place], [address] Sodium [Moles/Vol] 140 mmol/L Normal 136-145 [facility] Comment on above: Order Comment: CC TO DR. ALONDRA RM AND DR. RUIZ MORENO Performed By: #### L 500.4100, L506.1000, L100.0100, L500.4050, L501.9520 ####[facility] [address] [place], [address] T PROT 7.5 g/dL Normal 6.4-8.2 [facility] Comment on above: Order Comment: CC TO DR. ALONDRA RM AND DR. RUIZ MORENO Performed By: #### L 500.4100, L506.1000, L100.0100, L500.4050, L501.9520 ####[facility] [address] [place], [address] Urea nitrogen [Mass/Vol] 23 mg/dL High 7-18 [facility] Comment on above: Order Comment: CC TO DR. ALONDRA RM AND DR. RUIZ MORENO Performed By: #### L 500.4100, L506.1000, L100.0100, L500.4050, L501.9520 ####[facility] [address] [place], [address] Eosinophil percentageOrdered By: Rancho Matthew on 09-04-2024 Eosinophils/100 WBC (Bld) 2.5 % 0-5 [facility] Erythrocyte distribution wid th ratioOrdered By: Rancho Matthew on 09-04-2024 Erythrocyte distribution width (RBC) [Ratio] 13.3 % 11.6-14.6 [facility] Erythrocyte distribution wid th standard deviationOrdered By: Rancho Matthew on 09-04-2024 Erythrocyte distribution width (RBC) [Entitic vol] 45.2 fL High 35.1-43.9 [facility] Erythrocyte distribution width (RBC) [Ratio] 45.2 fl High 35.1-43.9 [facility] Estimated glomerular filtrat ion rate (GFR) AmericanOrdered By: Rancho Matthew on 09-04-2024 Estimated GFR (MDRD) Amer 60 mL/min >60 [facility] Comment on above: GFR Calc Glomerular filtration rate ( GFR) estimationOrdered By: Rancho Matthew 09-04-2024 Estimated GFR (MDRD) Non-Af Amer 50 mL/min Low >60 [facility] Comment on above: Non- GFR Calc GFR/1.73 sq M.predicted among non-blacks MDRD (S/P/Bld) [Vol rate/Area] 50 mL/min/{1.73_m2} Low >60 [facility] Comment on above: Non- GFR Calc Glucose measurementOrdered B y: Rancho Matthew on 09-04-2024 Glucose [Mass/Vol] 80 mg/dL 74-106 [facility] Hematocrit Auto (Bld) [Volum e fraction]Ordered By: Rancho Matthew 09-04-2024 Hematocrit (Bld) [Volume fraction] 39.5 % 37-47 [facility] Hemoglobin measurementOrdere d By: Rancho Matthew 09-04-2024 Hemoglobin (Bld) [Mass/Vol] 12.9 g/dL 12.0-15.0 [facility] High density lipoprotein (HD L) measurementOrdered By: Rancho Matthew 09-04-2024 Cholesterol in HDL [Mass/Vol] 34 mg/dL Low >40 [facility] Comment on above: The drugs N-Acetylcy steine and Metamizole may falsely depress this assay. Reference Range HDL <40 mg/dL Low HDL Cholesterol HDL >or= 60 mg/dL High HDL Cholesterol Immature granulocytes/100 WB C Auto (Bld)Ordered By: Rancho Matthew on 09-04-2024 Immature granulocytes/100 WBC (Bld) 0.300 % 0.0-0.9 [facility] Comment on above: IG% - Immature Granu locytes (promyelocytes, myelocytes and metamyelocytes) > 1% indicates that a LEFT SHIFT is Present. International normalized rat io (INR) calculationOrdered By: Ruiz Isbell on 09-04-2024 INR Coag (Bld) [Relative time] 1.0 {INR} [facility] Laboratory - Chemistry and C hemistry - challengeOrdered By: Rancho Matthew on 09-04-2024 AST [Catalytic activity/Vol] 17 U/L 15-37 [facility] Lipid Profileon 09-04-2024 Cholesterol [Mass/Vol] 206 mg/dL High 200 [facility] Comment on above: Order Comment: CC TO DR. ALONDRA RM AND DR. RUIZ MORENO Result Comment: <200 mg/dL Desirable 200-240 mg/dL Borderline >240 mg/dL High Risk Performed By: #### L 500.4100, L506.1000, L100.0100, L500.4050, L501.9520 ####[facility] [address] [place], [address] Cholesterol in HDL [Mass/Vol] 34 mg/dL Low [facility] Comment on above: Order Comment: CC TO DR. ALONDRA RM AND DR. RUIZ MORENO Result Comment: The drugs N-Acetylcysteine and Metamizole may falselydepress this assay. Reference Range HDL <40 mg/dL Low HDL Cholesterol HDL >or= 60 mg/dL High HDL Cholesterol Performed By: #### L 500.4100, L506.1000, L100.0100, L500.4050, L501.9520 ####[facility] [address] [place], [address] Cholesterol in LDL [Mass/Vol] 113 mg/dL Normal 0-130 [facility] Comment on above: Order Comment: CC TO DR. ALONDRA RM AND DR. RUIZ MORENO Performed By: #### L 500.4100, L506.1000, L100.0100, L500.4050, L501.9520 ####[facility] [address] [place], [address] Cholesterol in VLDL [Mass/Vol] 59 mg/dL High 5-40 [facility] Comment on above: Order Comment: CC TO DR. ALONDRA RM AND DR. RUIZ MORENO Performed By: #### L 500.4100, L506.1000, L100.0100, L500.4050, L501.9520 ####[facility] [address] [place], [address] Triglyceride [Mass/Vol] 295 mg/dL High [facility] Comment on above: Order Comment: CC TO DR. ALONDRA RM AND DR. RUIZ MOREON Result Comment: The drugs N-Acetylcysteine and Metamizole may falselydepress this assay.Serum Triglycerides Reference Interval Normal <150 mg/dL Borderline high 150 - 199 mg/dL High 200 - 499 mg/dL Very High > or = 500 mg/dL Performed By: #### L 500.4100, L506.1000, L100.0100, L500.4050, L501.9520 ####[facility] [address] [place], [address] Low density lipoprotein (LDL ) cholesterol measurementOrdered By: Rancho Matthew on 09-04-2024 Cholesterol in LDL [Mass/Vol] 113 mg/dL 0-130 [facility] Lymphocytes Auto (Unsp spec) [#/Vol]Ordered By: Rancho Matthew on 09-04-2024 Lymphocytes (Bld) [#/Vol] 1.77 10*3/uL 0.83-4.51 [facility] Lymphocytes/100 WBC Auto (Un sp spec)Ordered By: Rancho Matthew on 09-04-2024 Lymphocytes/100 WBC (Bld) 28.2 % 19-41 [facility] MCV (mean corpuscular volume ) determinationOrdered By: Rancho Matthew on 09-04-2024 MCV (RBC) [Entitic vol] 94.0 fL 81-99 [facility] MRSA screenOrdered By: Ranjit Rm on 09-04-2024 MRSA DNA YASMIN+probe Ql (Unsp spec) [facility] Nasal Screen MRSA/MSSA [facility] Magnesiumon 09-04-2024 Magnesium [Mass/Vol] 2.3 mg/dL Normal 1.6-2.6 [facility] Comment on above: Order Comment: CC PT AND PTT TO DR. MATTHEW Performed By: #### L 501.4700, L300.3900, L501.5200, L300.4310 ####[facility] [address] [place], [place], [id number] Magnesium measurementOrdered By: Ruiz Isbell on 09-04-2024 Magnesium [Mass/Vol] 2.3 mg/dL 1.6-2.6 [facility] Mean corpuscular hemoglobin (MCH) determinationOrdered By: Rancho Matthew on 09-04-2024 MCH (RBC) [Entitic mass] 30.7 pg 27.0-32.0 [facility] Mean corpuscular hemoglobin concentration (MCHC) determinationOrdered By: Rancho Matthew on 09-04-2024 MCHC (RBC) [Mass/Vol] 32.7 g/dL 32-36 [facility] Mean platelet volume determi nationOrdered By: Rancho Matthew on 09-04-2024 Platelet mean volume (Bld) [Entitic vol] 9.8 fL 6.2-12.0 [facility] Monocyte percentageOrdered B y: Rancho Matthew on 09-04-2024 Monocytes/100 WBC (Bld) 5.7 % 0-10 [facility] Neutrophil percentageOrdered By: Rancho Matthew on 09-04-2024 Neutrophils/100 WBC (Bld) 62.2 % 47-70 [facility] Nucleated red blood cell per centageOrdered By: Rancho Matthew on 09-04-2024 Nucleated RBC/100 WBC (Bld) [Ratio] 0 % 0-5 [facility] Partial Thromboplast Timeon 09-04-2024 aPTT Coag (Bld) [Time] 26.7 s Normal 24.1-36.2 [facility] Comment on above: Performed By: #### L 501.4700, L300.3900, L501.5200, L300.4310 ####[facility] [address] [place], [address] Platelet countOrdered By: Baltazar Matthew on 09-04-2024 Platelets (Bld) [#/Vol] 279 10*3/uL 150-450 [facility] Potassium measurementOrdered By: Rancho Matthew on 09-04-2024 Potassium [Moles/Vol] 4.4 mmol/L 3.5-5.1 [facility] Prothrombin Time w/INRon INR Coag (PPP) [Relative time] 1.0 {INR} Normal [facility] Comment on above: Performed By: #### L 501.4700, L300.3900, L501.5200, L300.4310 ####[facility] [address] [place], [address] PT Coag (PPP) [Time] 13.3 s Normal 11.7-14.9 [facility] Comment on above: Performed By: #### L 501.4700, L300.3900, L501.5200, L300.4310 ####[facility] [address] [place], [address] Prothrombin timeOrdered By: Ruiz Isbell on 09-04-2024 PT Coag (PPP) [Time] 13.3 s 11.7-14.9 [facility] RBC Auto (Bld) [#/Vol]Ordere d By: Rancho Matthew on 09-04-2024 RBC (Bld) [#/Vol] 4.20 10*6/uL 4.2-5.4 [facility] Serum anion gap measurementO rdered By: Rancho Matthew on 09-04-2024 Anion gap [Moles/Vol] 7 mmol/L 5-15 [facility] Serum globulin measurementOr dered By: Rancho Matthew on 09-04-2024 Globulin (S) [Mass/Vol] 4.1 g/dL 2.2-4.2 [facility] Serum or plasma alanine barahona otransferase (ALT) measurementOrdered By: Rancho Matthew on 09-04-2024 ALT [Catalytic activity/Vol] 14 U/L 13-56 [facility] Serum or plasma albumin andrew urement (mass/volume)Ordered By: Rancho Matthew 09-04-2024 Albumin [Mass/Vol] 3.4 g/dL 3.2-5.0 [facility] Serum or plasma alkaline latrell sphatase measurementOrdered By: Rancho Matthew 09-04-2024 ALP [Catalytic activity/Vol] 68 U/L 45-117 [facility] Serum or plasma calcium andrew urement (mass/volume)Ordered By: Rancho Matthew 09-04-2024 Calcium [Mass/Vol] 9.1 mg/dL 8.5-10.1 [facility] Serum or plasma cholesterol measurement (mass/volume)Ordered By: Rancho Matthew 09-04-2024 Cholesterol [Mass/Vol] 206 mg/dL High <200 [facility] Comment on above: <200 mg/dL Desirable 200-240 mg/dL Borderline >240 mg/dL High Risk Serum or plasma creatinine m easurement (mass/volume)Ordered By: Rancho Matthew 09-04-2024 Creatinine [Mass/Vol] 1.12 mg/dL High 0.55-1.02 [facility] Comment on above: The validity of the calculated GFR & GFRAA in patients over 70 years has not been determined. Clinical correlation is essential. Serum or plasma thyroid stim ulating hormone (TSH) measurement (units/volume)Ordered By: Rancho Matthew 09-04-2024 TSH Qn 3.360 uIU/mL 0.358-3.740 [facility] Serum or plasma urea nitroge n measurement (mass/volume)Ordered By: Rancho Matthew 09-04-2024 Urea nitrogen [Mass/Vol] 23 mg/dL High 7-18 [facility] Sodium levelOrdered By: Rancho Matthew 09-04-2024 Sodium [Moles/Vol] 140 mmol/L 136-145 [facility] TSH QnOrdered By: Rancho Matthew o n 09-04-2024 Thyroid Stimulating Hormone (TSH) 3.360 uIU/mL 0.358-3.740 [facility] Thyroid Stim Hormone (TSH)on 09-04-2024 TSH 3.360 uIU/mL Normal 0.358-3.740 [facility] Comment on above: Order Comment: CC TO DR. ALONDRA RM AND DR. RUIZ MORENO Performed By: #### L 500.4100, L506.1000, L100.0100, L500.4050, L501.9520 ####[facility] [address] [place], [address] Total proteinOrdered By: Rancho Matthew on 09-04-2024 Protein [Mass/Vol] 7.5 g/dL 6.4-8.2 [facility] Triglycerides measurementOrd ered By: Rancho Matthew on 09-04-2024 Triglyceride [Mass/Vol] 295 mg/dL High <199 [facility] Comment on above: The drugs N-Acetylcy steine and Metamizole may falsely depress this assay.Serum Triglycerides Reference Interval Normal <150 mg/dL Borderline high 150 - 199 mg/dL High 200 - 499 mg/dL Very High > or = 500 mg/dL Very low density lipoprotein (VLDL) cholesterol measurementOrdered By: Rancho Matthew on 09-04-2024 Very low density lipoprotein (VLDL) cholesterol measurement 59 mg/dL High 5-40 [facility] VLDL Cholesterol 59 mg/dL High 5-40 [facility] Vitamin D,25 Hydroxyon 09-04 Vitamin D 25-OH 13.4 ng/mL Normal [facility] Comment on above: Result Comment: Louisa min D 25(OH) Status Range Deficiency <20 ng/mL (50nmol/L) Insufficiency 20 - 30 ng/mL (50 - 75 nmol/L) Sufficiency 30 - 100 ng/mL (75 - 250 nmol/L) Toxicity >100 ng/mL (>250 nmol/L) Performed By: #### L 500.4100, L506.1000, L100.0100, L500.4050, L501.9520 ####[facility] [address] [place], [address] White blood cell (WBC) count Ordered By: Rancho Matthew on 09-04-2024 WBC (Bld) [#/Vol] 6.3 10*3/uL 4.4-11.0 [facility] aPTT Coag (PPP) [Time]Ordere d By: Ruiz Isbell on 09-04-2024 aPTT Coag (Bld) [Time] 26.7 s 24.1-36.2 [facility] MR/PAT.ANEon 09-02-2024 MR/PAT.ANE Normal [facility] 12 Lead EKG performed by [facility] on 08-20-2024 12 Lead EKG performed by [facility] Normal [facility] Cardiology Visit Reporton Cardiology Visit Report Normal [facility] Basic Metabolic Profile (BMP )on 05-18-2024 BUN/CRE 25.2 RATIO High 10-20 [facility] Comment on above: Performed By: #### L 100.0100, L500.2500 ####[facility] [address] [place], [address] CA,Total 9.0 mg/dL Normal 8.5-10.1 [facility] Comment on above: Performed By: #### L 100.0100, L500.2500 ####[facility] [address] [place], [address] Chloride [Moles/Vol] 108 mmol/L High 98-107 [facility] Comment on above: Performed By: #### L 100.0100, L500.2500 ####[facility] [address] [place], [address] CO2 [Moles/Vol] 25.0 mmol/L Normal 21.0-32.0 [facility] Comment on above: Performed By: #### L 100.0100, L500.2500 ####[facility] [address] [place], [address] Creatinine [Mass/Vol] 1.07 mg/dL High 0.55-1.02 [facility] Comment on above: Result Comment: The validity of the calculated GFR GFRAA in patients over70 years has not been determined. Clinical correlation isessential. Performed By: #### L 100.0100, L500.2500 ####[facility] [address] [place], [address] ECRCL 43.42 ml/min Normal [facility] Comment on above: Performed By: #### L 100.0100, L500.2500 ####[facility] [address] [place], [address] EST GFR - AA 63 mL/min Normal >60 [facility] Comment on above: Result Comment: Afri can Israeli GFR Calc Performed By: #### L 100.0100, L500.2500 ####[facility] [address] [place], [address] GAP 7 Normal 5-15 [facility] Comment on above: Performed By: #### L 100.0100, L500.2500 ####[facility] [address] [place], [address] GFR/1.73 sq M.predicted among non-blacks MDRD (S/P/Bld) [Vol rate/Area] 52 mL/min/{1.73_m2} Low >60 [facility] Comment on above: Result Comment: Non- GFR Calc Performed By: #### L 100.0100, L500.2500 ####[facility] [address] [place], [address] Glucose [Mass/Vol] 101 mg/dL Normal 74-106 [facility] Comment on above: Result Comment: Fast ing Glucose result from 100 to 125 mg/dLsuggests IMPAIRED HOMEOSTASIS per A.D.A. criteria. Performed By: #### L 100.0100, L500.2500 ####[facility] [address] [place], [address] Potassium [Moles/Vol] 4.4 mmol/L Normal 3.5-5.1 [facility] Comment on above: Performed By: #### L 100.0100, L500.2500 ####[facility] [address] [place], [address] Sodium [Moles/Vol] 139 mmol/L Normal 136-145 [facility] Comment on above: Performed By: #### L 100.0100, L500.2500 ####[facility] [address] [place], [address] Urea nitrogen [Mass/Vol] 27 mg/dL High 7-18 [facility] Comment on above: Performed By: #### L 100.0100, L500.2500 ####[facility] [address] [place], [address] CBC W/Diff, Automatedon 10-0 6-2023 Absolute Lymph 2.14 X10 3/uL Normal 0.83-4.51 [facility] Comment on above: Performed By: #### L 100.0100, L500.2500 ####[facility] [address] [place], [address] Absolute Neut 5.0 X10 3/uL Normal 2.0-7.7 [facility] Comment on above: Performed By: #### L 100.0100, L500.2500 ####[facility] [address] [place], [address] Basophils/100 WBC (Bld) 1.0 % Normal 0-1 [facility] Comment on above: Performed By: #### L 100.0100, L500.2500 ####[facility] [address] [place], [address] Eosinophils/100 WBC (Bld) 1.8 % Normal 0-5 [facility] Comment on above: Performed By: #### L 100.0100, L500.2500 ####[facility] [address] [place], [address] Erythrocyte distribution width (RBC) [Ratio] 13.6 % Normal 11.6-14.6 [facility] Comment on above: Performed By: #### L 100.0100, L500.2500 ####[facility] [address] [place], [address] Hematocrit (Bld) [Volume fraction] 39.9 % Normal 37-47 [facility] Comment on above: Performed By: #### L 100.0100, L500.2500 ####[facility] [address] [place], [address] Hemoglobin (Bld) [Mass/Vol] 12.8 g/dL Normal 12.0-15.0 [facility] Comment on above: Performed By: #### L 100.0100, L500.2500 ####[facility] [address] [place], [address] IG% 0.500 Normal 0.0-0.9 [facility] Comment on above: Result Comment: IG% - Immature Granulocytes (promyelocytes, myelocytes andmetamyelocytes) > 1% indicates that a LEFT SHIFT is Present. Performed By: #### L 100.0100, L500.2500 ####[facility] [address] [place], [address] Lymphocytes/100 WBC (Bld) 26.4 % Normal 19-41 [facility] Comment on above: Performed By: #### L 100.0100, L500.2500 ####[facility] [address] [place], [address] MCH (RBC) [Entitic mass] 30.9 pg Normal 27.0-32.0 [facility] Comment on above: Performed By: #### L 100.0100, L500.2500 ####[facility] [address] [place], [address] MCHC (RBC) [Mass/Vol] 32.1 g/dL Normal 32-36 [facility] Comment on above: Performed By: #### L 100.0100, L500.2500 ####[facility] [address] [place], [address] MCV (RBC) [Entitic vol] 96.4 fL Normal 81-99 [facility] Comment on above: Performed By: #### L 100.0100, L500.2500 ####[facility] [address] [place], [address] Monocytes/100 WBC (Bld) 8.3 % Normal 0-10 [facility] Comment on above: Performed By: #### L 100.0100, L500.2500 ####[facility] [address] [place], [address] Neutrophils/100 WBC (Bld) 62.0 % Normal 47-70 [facility] Comment on above: Performed By: #### L 100.0100, L500.2500 ####[facility] [address] [place], [address] Nucleated RBC (Bld) [#/Vol] 0 10*3/uL Normal 0-5 [facility] Comment on above: Performed By: #### L 100.0100, L500.2500 ####[facility] [address] [place], [address] Platelet mean volume (Bld) [Entitic vol] 10.2 fL Normal 6.2-12.0 [facility] Comment on above: Performed By: #### L 100.0100, L500.2500 ####[facility] [address] [place], [address] Platelets (Bld) [#/Vol] 300 10*3/uL Normal 150-450 [facility] Comment on above: Performed By: #### L 100.0100, L500.2500 ####[facility] [facility] [address] [place], [address] RBC (Bld) [#/Vol] 4.14 10*6/uL Low 4.2-5.4 [facility] Comment on above: Performed By: #### L 100.0100, L500.2500 ####[facility] [address] [place], [address] RDW SD 47.9 fl High 35.1-43.9 [facility] Comment on above: Performed By: #### L 100.0100, L500.2500 ####[facility] [address] [place], [address] WBC (Bld) [#/Vol] 8.1 10*3/uL Normal 4.4-11.0 [facility] Comment on above: Performed By: #### L 100.0100, L500.2500 ####[facility] [address] [place], [address] Emergency Department Summary on 05-18-2024 Emergency Department Summary Normal [facility] Extremity Lower without Cont raon 05-18-2024 Extremity Lower without Contra Normal [facility] Finger(s) Min 2 Viewson 10-0 Finger(s) Min 2 Views Normal [facility] HIP, UNI W/ Pelvis 2-3 Views on 05-18-2024 HIP, UNI W/ Pelvis 2-3 Views Normal [facility] Basic Metabolic Profile (BMP )on 04-15-2024 BUN Normal 7-18 [facility] Comment on above: Result Comment: Canc elled via OM: Order cancelled - Patient discharged Performed By: #### L 500.2500, L100.0100 ####[facility] [address] [place], [address] BUN/CRE Normal 10-20 [facility] Comment on above: Result Comment: Canc elled via OM: Order cancelled - Patient discharged Performed By: #### L 500.2500, L100.0100 ####[facility] [address] [place], [address] CA,Total Normal 8.5-10.1 [facility] Comment on above: Result Comment: Canc elled via OM: Order cancelled - Patient discharged Performed By: #### L 500.2500, L100.0100 ####[facility] [address] [place], [address] CL Normal 98-107 [facility] Comment on above: Result Comment: Canc elled via OM: Order cancelled - Patient discharged Performed By: #### L 500.2500, L100.0100 ####[facility] [address] [place], [address] CO2 Normal 21.0-32.0 [facility] Comment on above: Result Comment: Canc elled via OM: Order cancelled - Patient discharged Performed By: #### L 500.2500, L100.0100 ####[facility] [address] [place], [address] CREAT,SERUM Normal 0.55-1.02 [facility] Comment on above: Result Comment: Canc elled via OM: Order cancelled - Patient discharged Performed By: #### L 500.2500, L100.0100 ####[facility] [address] [place], [address] EST GFR Normal >60 [facility] Comment on above: Result Comment: Canc elled via OM: Order cancelled - Patient discharged Performed By: #### L 500.2500, L100.0100 ####[facility] [address] [place], [address] EST GFR - AA Normal >60 [facility] Comment on above: Result Comment: Canc elled via OM: Order cancelled - Patient discharged Performed By: #### L 500.2500, L100.0100 ####[facility] [address] [place], [address] GAP Normal 5-15 [facility] Comment on above: Result Comment: Canc elled via OM: Order cancelled - Patient discharged Performed By: #### L 500.2500, L100.0100 ####[facility] [address] [place], [address] GLU Normal 74-106 [facility] Comment on above: Result Comment: Canc elled via OM: Order cancelled - Patient discharged Performed By: #### L 500.2500, L100.0100 ####[facility] [address] [place], [address] Potassium Normal 3.5-5.1 [facility] Comment on above: Result Comment: Canc elled via OM: Order cancelled - Patient discharged Performed By: #### L 500.2500, L100.0100 ####[facility] [address] [place], [address] Basic Metabolic Profile (BMP) Normal 136-145 [facility] Comment on above: Result Comment: Canc elled via OM: Order cancelled - Patient discharged Performed By: #### L 500.2500, L100.0100 ####[facility] [address] [place], [address] CBC W/Diff, Automatedon 09-0 -2023 Absolute Neut Normal 2.0-7.7 [facility] Comment on above: Result Comment: Canc elled via OM: Order cancelled - Patient discharged Performed By: #### L 500.2500, L100.0100 ####[facility] [address] [place], [address] HCT Normal 37-47 [facility] Comment on above: Result Comment: Canc elled via OM: Order cancelled - Patient discharged Performed By: #### L 500.2500, L100.0100 ####[facility] [address] [place], [address] HGB Normal 12.0-15.0 [facility] Comment on above: Result Comment: Canc elled via OM: Order cancelled - Patient discharged Performed By: #### L 500.2500, L100.0100 ####[facility] [address] [place], [address] MCH Normal 27.0-32.0 [facility] Comment on above: Result Comment: Canc elled via OM: Order cancelled - Patient discharged Performed By: #### L 500.2500, L100.0100 ####[facility] [address] [place], [address] MCHC Normal 32-36 [facility] Comment on above: Result Comment: Canc elled via OM: Order cancelled - Patient discharged Performed By: #### L 500.2500, L100.0100 ####[facility] [address] [place], [address] MCV Normal 81-99 [facility] Comment on above: Result Comment: Canc elled via OM: Order cancelled - Patient discharged Performed By: #### L 500.2500, L100.0100 ####[facility] [address] [place], [address] NEUT% Normal 47-70 [facility] Comment on above: Result Comment: Canc elled via OM: Order cancelled - Patient discharged Performed By: #### L 500.2500, L100.0100 ####[facility] [address] [place], [address] PLT Normal 150-450 [facility] Comment on above: Result Comment: Canc elled via OM: Order cancelled - Patient discharged Performed By: #### L 500.2500, L100.0100 ####[facility] [address] [place], [address] RBC Normal 4.2-5.4 [facility] Comment on above: Result Comment: Canc elled via OM: Order cancelled - Patient discharged Performed By: #### L 500.2500, L100.0100 ####[facility] [address] [place], [address] RDW CV Normal 11.6-14.6 [facility] Comment on above: Result Comment: Canc elled via OM: Order cancelled - Patient discharged Performed By: #### L 500.2500, L100.0100 ####[facility] [address] [place], [address] RDW SD Normal 35.1-43.9 [facility] Comment on above: Result Comment: Canc elled via OM: Order cancelled - Patient discharged Performed By: #### L 500.2500, L100.0100 ####[facility] [address] [place], [address] WBC Normal 4.4-11.0 [facility] Comment on above: Result Comment: Canc elled via OM: Order cancelled - Patient discharged Performed By: #### L 500.2500, L100.0100 ####[facility] [address] [place], [address] Basic Metabolic Profile (BMP )on 04-08-2024 BUN Normal 7-18 [facility] Comment on above: Result Comment: Canc elled via OM: Order cancelled - Patient discharged Performed By: #### L 500.2500, L100.0100 ####[facility] [address] [place], [address] BUN/CRE Normal 10-20 [facility] Comment on above: Result Comment: Canc elled via OM: Order cancelled - Patient discharged Performed By: #### L 500.2500, L100.0100 ####[facility] [address] [place], [address] CA,Total Normal 8.5-10.1 [facility] Comment on above: Result Comment: Canc elled via OM: Order cancelled - Patient discharged Performed By: #### L 500.2500, L100.0100 ####[facility] [address] [place], [address] CL Normal 98-107 [facility] Comment on above: Result Comment: Canc elled via OM: Order cancelled - Patient discharged Performed By: #### L 500.2500, L100.0100 ####[facility] [address] [place], [address] CO2 Normal 21.0-32.0 [facility] Comment on above: Result Comment: Canc elled via OM: Order cancelled - Patient discharged Performed By: #### L 500.2500, L100.0100 ####[facility] [address] [place], [address] CREAT,SERUM Normal 0.55-1.02 [facility] Comment on above: Result Comment: Canc elled via OM: Order cancelled - Patient discharged Performed By: #### L 500.2500, L100.0100 ####[facility] [address] [place], [address] EST GFR Normal >60 [facility] Comment on above: Result Comment: Canc elled via OM: Order cancelled - Patient discharged Performed By: #### L 500.2500, L100.0100 ####[facility] [address] [place], [address] EST GFR - AA Normal >60 [facility] Comment on above: Result Comment: Canc elled via OM: Order cancelled - Patient discharged Performed By: #### L 500.2500, L100.0100 ####[facility] [address] [place], [address] GAP Normal 5-15 [facility] Comment on above: Result Comment: Canc elled via OM: Order cancelled - Patient discharged Performed By: #### L 500.2500, L100.0100 ####[facility] [address] [place], [address] GLU Normal 74-106 [facility] Comment on above: Result Comment: Canc elled via OM: Order cancelled - Patient discharged Performed By: #### L 500.2500, L100.0100 ####[facility] [address] [place], [address] Potassium Normal 3.5-5.1 [facility] Comment on above: Result Comment: Canc elled via OM: Order cancelled - Patient discharged Performed By: #### L 500.2500, L100.0100 ####[facility] [address] [place], [address] Basic Metabolic Profile (BMP) Normal 136-145 [facility] Comment on above: Result Comment: Canc elled via OM: Order cancelled - Patient discharged Performed By: #### L 500.2500, L100.0100 ####[facility] [address] [place], [address] CBC W/Diff, Automatedon 08-2 Absolute Neut Normal 2.0-7.7 [facility] Comment on above: Result Comment: Canc elled via OM: Order cancelled - Patient discharged Performed By: #### L 500.2500, L100.0100 ####[facility] [address] [place], [address] HCT Normal 37-47 [facility] Comment on above: Result Comment: Canc elled via OM: Order cancelled - Patient discharged Performed By: #### L 500.2500, L100.0100 ####[facility] [address] [place], [address] HGB Normal 12.0-15.0 [facility] Comment on above: Result Comment: Canc elled via OM: Order cancelled - Patient discharged Performed By: #### L 500.2500, L100.0100 ####[facility] [address] [place], [address] MCH Normal 27.0-32.0 [facility] Comment on above: Result Comment: Canc elled via OM: Order cancelled - Patient discharged Performed By: #### L 500.2500, L100.0100 ####[facility] [address] [place], [address] MCHC Normal 32-36 [facility] Comment on above: Result Comment: Canc elled via OM: Order cancelled - Patient discharged Performed By: #### L 500.2500, L100.0100 ####[facility] [address] [place], [address] MCV Normal 81-99 [facility] Comment on above: Result Comment: Canc elled via OM: Order cancelled - Patient discharged Performed By: #### L 500.2500, L100.0100 ####[facility] [address] [place], [address] NEUT% Normal 47-70 [facility] Comment on above: Result Comment: Canc elled via OM: Order cancelled - Patient discharged Performed By: #### L 500.2500, L100.0100 ####[facility] [address] [place], [address] PLT Normal 150-450 [facility] Comment on above: Result Comment: Canc elled via OM: Order cancelled - Patient discharged Performed By: #### L 500.2500, L100.0100 ####[facility] [address] [place], [address] RBC Normal 4.2-5.4 [facility] Comment on above: Result Comment: Canc elled via OM: Order cancelled - Patient discharged Performed By: #### L 500.2500, L100.0100 ####[facility] [address] [place], [address] RDW CV Normal 11.6-14.6 [facility] Comment on above: Result Comment: Canc elled via OM: Order cancelled - Patient discharged Performed By: #### L 500.2500, L100.0100 ####[facility] [address] [place], [address] RDW SD Normal 35.1-43.9 [facility] Comment on above: Result Comment: Canc elled via OM: Order cancelled - Patient discharged Performed By: #### L 500.2500, L100.0100 ####[facility] [address] [place], [address] WBC Normal 4.4-11.0 [facility] Comment on above: Result Comment: Canc elled via OM: Order cancelled - Patient discharged Performed By: #### L 500.2500, L100.0100 ####[facility] [address] [place], [address] Basic Metabolic Profile (BMP )on 04-01-2024 BUN Normal 7-18 [facility] Comment on above: Result Comment: Canc elled via OM: Order cancelled - Patient discharged Performed By: #### L 500.2500, L100.0100 ####[facility] [address] [place], [address] BUN/CRE Normal -20 [facility] Comment on above: Result Comment: Canc elled via OM: Order cancelled - Patient discharged Performed By: #### L 500.2500, L100.0100 ####[facility] [address] [place], [address] CA,Total Normal 8.5-10.1 [facility] Comment on above: Result Comment: Canc elled via OM: Order cancelled - Patient discharged Performed By: #### L 500.2500, L100.0100 ####[facility] [address] [place], [address] CL Normal 98-107 [facility] Comment on above: Result Comment: Canc elled via OM: Order cancelled - Patient discharged Performed By: #### L 500.2500, L100.0100 ####[facility] [address] [place], [address] CO2 Normal 21.0-32.0 [facility] Comment on above: Result Comment: Canc elled via OM: Order cancelled - Patient discharged Performed By: #### L 500.2500, L100.0100 ####[facility] [address] [place], [address] CREAT,SERUM Normal 0.55-1.02 [facility] Comment on above: Result Comment: Canc elled via OM: Order cancelled - Patient discharged Performed By: #### L 500.2500, L100.0100 ####[facility] [address] [place], [address] EST GFR Normal >60 [facility] Comment on above: Result Comment: Canc elled via OM: Order cancelled - Patient discharged Performed By: #### L 500.2500, L100.0100 ####[facility] [address] [place], [address] EST GFR - AA Normal >60 [facility] Comment on above: Result Comment: Canc elled via OM: Order cancelled - Patient discharged Performed By: #### L 500.2500, L100.0100 ####[facility] [address] [place], [address] GAP Normal 5-15 [facility] Comment on above: Result Comment: Canc elled via OM: Order cancelled - Patient discharged Performed By: #### L 500.2500, L100.0100 ####[facility] [address] [place], [address] GLU Normal 74-106 [facility] Comment on above: Result Comment: Canc elled via OM: Order cancelled - Patient discharged Performed By: #### L 500.2500, L100.0100 ####[facility] [address] [place], [address] Potassium Normal 3.5-5.1 [facility] Comment on above: Result Comment: Canc elled via OM: Order cancelled - Patient discharged Performed By: #### L 500.2500, L100.0100 ####[facility] [address] [place], [address] Basic Metabolic Profile (BMP) Normal 136-145 [facility] Comment on above: Result Comment: Canc elled via OM: Order cancelled - Patient discharged Performed By: #### L 500.2500, L100.0100 ####[facility] [address] [place], [address] CBC W/Diff, Automatedon 08-2 0-2023 Absolute Neut Normal 2.0-7.7 [facility] Comment on above: Result Comment: Canc elled via OM: Order cancelled - Patient discharged Performed By: #### L 500.2500, L100.0100 ####[facility] [address] [place], [address] HCT Normal 37-47 [facility] Comment on above: Result Comment: Canc elled via OM: Order cancelled - Patient discharged Performed By: #### L 500.2500, L100.0100 ####[facility] [address] [place], [address] HGB Normal 12.0-15.0 [facility] Comment on above: Result Comment: Canc elled via OM: Order cancelled - Patient discharged Performed By: #### L 500.2500, L100.0100 ####[facility] [address] [place], [address] MCH Normal 27.0-32.0 [facility] Comment on above: Result Comment: Canc elled via OM: Order cancelled - Patient discharged Performed By: #### L 500.2500, L100.0100 ####[facility] [address] [place], [address] MCHC Normal 32-36 [facility] Comment on above: Result Comment: Canc elled via OM: Order cancelled - Patient discharged Performed By: #### L 500.2500, L100.0100 ####[facility] [address] [place], [address] MCV Normal 81-99 [facility] Comment on above: Result Comment: Canc elled via OM: Order cancelled - Patient discharged Performed By: #### L 500.2500, L100.0100 ####[facility] [address] [place], [address] NEUT% Normal 47-70 [facility] Comment on above: Result Comment: Canc elled via OM: Order cancelled - Patient discharged Performed By: #### L 500.2500, L100.0100 ####[facility] [address] [place], [address] PLT Normal 150-450 [facility] Comment on above: Result Comment: Canc elled via OM: Order cancelled - Patient discharged Performed By: #### L 500.2500, L100.0100 ####[facility] [address] [place], [address] RBC Normal 4.2-5.4 [facility] Comment on above: Result Comment: Canc elled via OM: Order cancelled - Patient discharged Performed By: #### L 500.2500, L100.0100 ####[facility] [address] [place], [address] RDW CV Normal 11.6-14.6 [facility] Comment on above: Result Comment: Canc elled via OM: Order cancelled - Patient discharged Performed By: #### L 500.2500, L100.0100 ####[facility] [address] [place], [address] RDW SD Normal 35.1-43.9 [facility] Comment on above: Result Comment: Canc elled via OM: Order cancelled - Patient discharged Performed By: #### L 500.2500, L100.0100 ####[facility] [address] [place], [address] WBC Normal 4.4-11.0 [facility] Comment on above: Result Comment: Canc elled via OM: Order cancelled - Patient discharged Performed By: #### L 500.2500, L100.0100 ####[facility] [address] [place], [address] COVID 19 AG RAPID (SHERITA Ruiz)on 03-27-2024 SARS-CoV-2 (COVID-19) RNA YASMIN+probe Ql (Unsp spec) Normal [facility] Comment on above: Performed By: #### M 100.505 ####[facility] [address] [place], [address] Basic Metabolic Profile (BMP )on 03-25-2024 BUN/CRE 31.5 RATIO High 10-20 [facility] Comment on above: Performed By: #### L 500.2500, L100.0100 ####[facility] [address] [place], [address] CA,Total 9.2 mg/dL Normal 8.5-10.1 [facility] Comment on above: Performed By: #### L 500.2500, L100.0100 ####[facility] [address] [place], [address] Chloride [Moles/Vol] 104 mmol/L Normal 98-107 [facility] Comment on above: Performed By: #### L 500.2500, L100.0100 ####[facility] [address] [place], [address] CO2 [Moles/Vol] 30.0 mmol/L Normal 21.0-32.0 [facility] Comment on above: Performed By: #### L 500.2500, L100.0100 ####[facility] [address] [place], [address] Creatinine [Mass/Vol] 0.98 mg/dL Normal 0.55-1.02 [facility] Comment on above: Result Comment: The validity of the calculated GFR GFRAA in patients over70 years has not been determined. Clinical correlation isessential. Performed By: #### L 500.2500, L100.0100 ####[facility] [address] [place], [address] ECRCL 48.33 ml/min Normal [facility] Comment on above: Performed By: #### L 500.2500, L100.0100 ####[facility] [address] [place], [address] EST GFR - AA 70 mL/min Normal >60 [facility] Comment on above: Result Comment: Afri can Israeli GFR Calc Performed By: #### L 500.2500, L100.0100 ####[facility] [address] [place], [address] GAP 4 Low 5-15 [facility] Comment on above: Performed By: #### L 500.2500, L100.0100 ####[facility] [address] [place], [address] GFR/1.73 sq M.predicted among non-blacks MDRD (S/P/Bld) [Vol rate/Area] 58 mL/min/{1.73_m2} Low >60 [facility] Comment on above: Result Comment: Non- GFR Calc Performed By: #### L 500.2500, L100.0100 ####[facility] [address] [place], [address] Glucose [Mass/Vol] 91 mg/dL Normal 74-106 [facility] Comment on above: Performed By: #### L 500.2500, L100.0100 ####[facility] [address] [place], [address] Potassium [Moles/Vol] 4.5 mmol/L Normal 3.5-5.1 [facility] Comment on above: Performed By: #### L 500.2500, L100.0100 ####[facility] [facility] [address] [place], [address] Sodium [Moles/Vol] 138 mmol/L Normal 136-145 [facility] Comment on above: Performed By: #### L 500.2500, L100.0100 ####[facility] [address] [place], [address] Urea nitrogen [Mass/Vol] 31 mg/dL High 7-18 [facility] Comment on above: Performed By: #### L 500.2500, L100.0100 ####[facility] [address] [place], [address] CBC W/Diff, Automatedon 08-1 -2023 Absolute Lymph 1.62 X10 3/uL Normal 0.83-4.51 [facility] Comment on above: Performed By: #### L 500.2500, L100.0100 ####[facility] [address] [place], [address] Absolute Neut 2.6 X10 3/uL Normal 2.0-7.7 [facility] Comment on above: Performed By: #### L 500.2500, L100.0100 ####[facility] [address] [place], [address] Basophils/100 WBC (Bld) 1.0 % Normal 0-1 [facility] Comment on above: Performed By: #### L 500.2500, L100.0100 ####[facility] [address] [place], [address] Eosinophils/100 WBC (Bld) 2.6 % Normal 0-5 [facility] Comment on above: Performed By: #### L 500.2500, L100.0100 ####[facility] [address] [place], [address] Erythrocyte distribution width (RBC) [Ratio] 13.5 % Normal 11.6-14.6 [facility] Comment on above: Performed By: #### L 500.2500, L100.0100 ####[facility] [address] [place], [address] Hematocrit (Bld) [Volume fraction] 37.2 % Normal 37-47 [facility] Comment on above: Performed By: #### L 500.2500, L100.0100 ####[facility] [address] [place], [address] Hemoglobin (Bld) [Mass/Vol] 11.9 g/dL Low 12.0-15.0 [facility] Comment on above: Performed By: #### L 500.2500, L100.0100 ####[facility] [address] [place], [address] IG% 1.000 High 0.0-0.9 [facility] Comment on above: Result Comment: IG% - Immature Granulocytes (promyelocytes, myelocytes andmetamyelocytes) > 1% indicates that a LEFT SHIFT is Present. Performed By: #### L 500.2500, L100.0100 ####[facility] [address] [place], [address] Lymphocytes/100 WBC (Bld) 32.9 % Normal 19-41 [facility] Comment on above: Performed By: #### L 500.2500, L100.0100 ####[facility] [address] [place], [address] MCH (RBC) [Entitic mass] 31.1 pg Normal 27.0-32.0 [facility] Comment on above: Performed By: #### L 500.2500, L100.0100 ####[facility] [address] [place], [address] MCHC (RBC) [Mass/Vol] 32.0 g/dL Normal 32-36 [facility] Comment on above: Performed By: #### L 500.2500, L100.0100 ####[facility] [address] [place], [address] MCV (RBC) [Entitic vol] 97.1 fL Normal 81-99 [facility] Comment on above: Performed By: #### L 500.2500, L100.0100 ####[facility] [address] [place], [address] Monocytes/100 WBC (Bld) 9.1 % Normal 0-10 [facility] Comment on above: Performed By: #### L 500.2500, L100.0100 ####[facility] [address] [place], [address] Neutrophils/100 WBC (Bld) 53.4 % Normal 47-70 [facility] Comment on above: Performed By: #### L 500.2500, L100.0100 ####[facility] [address] [place], [address] Nucleated RBC (Bld) [#/Vol] 0 10*3/uL Normal 0-5 [facility] Comment on above: Performed By: #### L 500.2500, L100.0100 ####[facility] [address] [place], [address] Platelet mean volume (Bld) [Entitic vol] 9.5 fL Normal 6.2-12.0 [facility] Comment on above: Performed By: #### L 500.2500, L100.0100 ####[facility] [address] [place], [address] Platelets (Bld) [#/Vol] 324 10*3/uL Normal 150-450 [facility] Comment on above: Performed By: #### L 500.2500, L100.0100 ####[facility] [address] [place], [address] RBC (Bld) [#/Vol] 3.83 10*6/uL Low 4.2-5.4 [facility] Comment on above: Performed By: #### L 500.2500, L100.0100 ####[facility] [address] [place], [address] RDW SD 47.8 fl High 35.1-43.9 [facility] Comment on above: Performed By: #### L 500.2500, L100.0100 ####[facility] [address] [place], [address] WBC (Bld) [#/Vol] 4.9 10*3/uL Normal 4.4-11.0 [facility] Comment on above: Performed By: #### L 500.2500, L100.0100 ####[facility] [address] [place], [address] COVID 19 AG RAPID (RN [facility] T)on 03-23-2024 SARS-CoV-2 (COVID-19) RNA YASMIN+probe Ql (Unsp spec) Normal [facility] Comment on above: Performed By: #### M 100.505 ####[facility] [address] [place], [address] RESPIRATORY PANEL MOLECULARo n 03-23-2024 RP PANEL Normal [facility] Comment on above: Performed By: #### M 100.638 ####[facility] [address] [place], [address] COVID 19 AG RAPID (RN JOSE ENRIQUE T)on 03-20-2024 SARS-CoV-2 (COVID-19) RNA YASMIN+probe Ql (Unsp spec) Normal [facility] Comment on above: Performed By: #### M 100.505 ####[facility] [address] [place], [address] Basic Metabolic Profile (BMP )on 03-18-2024 BUN/CRE 28.7 RATIO High 10-20 [facility] Comment on above: Performed By: #### L 100.0100, L500.2500 ####[facility] [address] [place], [address] CA,Total 8.7 mg/dL Normal 8.5-10.1 [facility] Comment on above: Performed By: #### L 100.0100, L500.2500 ####[facility] [address] [place], [address] Chloride [Moles/Vol] 107 mmol/L Normal 98-107 [facility] Comment on above: Performed By: #### L 100.0100, L500.2500 ####[facility] [address] [place], [address] CO2 [Moles/Vol] 29.0 mmol/L Normal 21.0-32.0 [facility] Comment on above: Performed By: #### L 100.0100, L500.2500 ####[facility] [address] [place], [address] Creatinine [Mass/Vol] 0.91 mg/dL Normal 0.55-1.02 [facility] Comment on above: Result Comment: The validity of the calculated GFR GFRAA in patients over70 years has not been determined. Clinical correlation isessential. Performed By: #### L 100.0100, L500.2500 ####[facility] [address] [place], [address] ECRCL 53.49 ml/min Normal [facility] Comment on above: Performed By: #### L 100.0100, L500.2500 ####[facility] [address] [place], [address] EST GFR - AA 77 mL/min Normal >60 [facility] Comment on above: Result Comment: Afri can Israeli GFR Calc Performed By: #### L 100.0100, L500.2500 ####[facility] [address] [place], [address] GAP 4 Low 5-15 [facility] Comment on above: Performed By: #### L 100.0100, L500.2500 ####[facility] [address] [place], [address] GFR/1.73 sq M.predicted among non-blacks MDRD (S/P/Bld) [Vol rate/Area] 63 mL/min/{1.73_m2} Normal >60 [facility] Comment on above: Result Comment: Non- GFR Calc Performed By: #### L 100.0100, L500.2500 ####[facility] [address] [place], [address] Glucose [Mass/Vol] 85 mg/dL Normal 74-106 [facility] Comment on above: Performed By: #### L 100.0100, L500.2500 ####[facility] [address] [place], [address] Potassium [Moles/Vol] 4.5 mmol/L Normal 3.5-5.1 [facility] Comment on above: Performed By: #### L 100.0100, L500.2500 ####[facility] [address] [place], [address] Sodium [Moles/Vol] 140 mmol/L Normal 136-145 [facility] Comment on above: Performed By: #### L 100.0100, L500.2500 ####[facility] [address] [place], [address] Urea nitrogen [Mass/Vol] 26 mg/dL High 7-18 [facility] Comment on above: Performed By: #### L 100.0100, L500.2500 ####[facility] [address] [place], [address] CBC W/Diff, Automatedon 08-0 6-2023 Absolute Lymph 1.88 X10 3/uL Normal 0.83-4.51 [facility] Comment on above: Performed By: #### L 100.0100, L500.2500 ####[facility] [address] [place], [address] Absolute Neut 2.7 X10 3/uL Normal 2.0-7.7 [facility] Comment on above: Performed By: #### L 100.0100, L500.2500 ####[facility] [address] [place], [address] Basophils/100 WBC (Bld) 0.7 % Normal 0-1 [facility] Comment on above: Performed By: #### L 100.0100, L500.2500 ####[facility] [address] [place], [address] Eosinophils/100 WBC (Bld) 2.8 % Normal 0-5 [facility] Comment on above: Performed By: #### L 100.0100, L500.2500 ####[facility] [address] [place], [address] Erythrocyte distribution width (RBC) [Ratio] 13.6 % Normal 11.6-14.6 [facility] Comment on above: Performed By: #### L 100.0100, L500.2500 ####[facility] [address] [place], [address] Hematocrit (Bld) [Volume fraction] 34.7 % Low 37-47 [facility] Comment on above: Performed By: #### L 100.0100, L500.2500 ####[facility] [address] [place], [address] Hemoglobin (Bld) [Mass/Vol] 11.1 g/dL Low 12.0-15.0 [facility] Comment on above: Performed By: #### L 100.0100, L500.2500 ####[facility] [address] [place], [address] IG% 0.900 Normal 0.0-0.9 [facility] Comment on above: Result Comment: IG% - Immature Granulocytes (promyelocytes, myelocytes andmetamyelocytes) > 1% indicates that a LEFT SHIFT is Present. Performed By: #### L 100.0100, L500.2500 ####[facility] [address] [place], [address] Lymphocytes/100 WBC (Bld) 35.0 % Normal 19-41 [facility] Comment on above: Performed By: #### L 100.0100, L500.2500 ####[facility] [address] [place], [address] MCH (RBC) [Entitic mass] 30.5 pg Normal 27.0-32.0 [facility] Comment on above: Performed By: #### L 100.0100, L500.2500 ####[facility] [address] [place], [address] MCHC (RBC) [Mass/Vol] 32.0 g/dL Normal 32-36 [facility] Comment on above: Performed By: #### L 100.0100, L500.2500 ####[facility] [address] [place], [address] MCV (RBC) [Entitic vol] 95.3 fL Normal 81-99 [facility] Comment on above: Performed By: #### L 100.0100, L500.2500 ####[facility] [address] [place], [address] Monocytes/100 WBC (Bld) 9.5 % Normal 0-10 [facility] Comment on above: Performed By: #### L 100.0100, L500.2500 ####[facility] [address] [place], [address] Neutrophils/100 WBC (Bld) 51.1 % Normal 47-70 [facility] Comment on above: Performed By: #### L 100.0100, L500.2500 ####[facility] [address] [place], [address] Nucleated RBC (Bld) [#/Vol] 0 10*3/uL Normal 0-5 [facility] Comment on above: Performed By: #### L 100.0100, L500.2500 ####[facility] [address] [place], [address] Platelet mean volume (Bld) [Entitic vol] 9.6 fL Normal 6.2-12.0 [facility] Comment on above: Performed By: #### L 100.0100, L500.2500 ####[facility] [address] [place], [address] Platelets (Bld) [#/Vol] 266 10*3/uL Normal 150-450 [facility] Comment on above: Performed By: #### L 100.0100, L500.2500 ####[facility] [address] [place], [address] RBC (Bld) [#/Vol] 3.64 10*6/uL Low 4.2-5.4 [facility] Comment on above: Performed By: #### L 100.0100, L500.2500 ####[facility] [address] [place], [address] RDW SD 48.3 fl High 35.1-43.9 [facility] Comment on above: Performed By: #### L 100.0100, L500.2500 ####[facility] [address] [place], [address] WBC (Bld) [#/Vol] 5.4 10*3/uL Normal 4.4-11.0 [facility] Comment on above: Performed By: #### L 100.0100, L500.2500 ####[facility] [address] [place], [address] Basic Metabolic Profile (BMP )on 03-13-2024 BUN/CRE 21.7 RATIO High 10-20 [facility] Comment on above: Performed By: #### L 500.2500 ####[facility] [address] [place], [address] CA,Total 9.1 mg/dL Normal 8.5-10.1 [facility] Comment on above: Performed By: #### L 500.2500 ####[facility] [address] [place], [address] Chloride [Moles/Vol] 106 mmol/L Normal 98-107 [facility] Comment on above: Performed By: #### L 500.2500 ####[facility] [address] [place], [address] CO2 [Moles/Vol] 28.0 mmol/L Normal 21.0-32.0 [facility] Comment on above: Performed By: #### L 500.2500 ####[facility] [address] [place], [address] Creatinine [Mass/Vol] 0.87 mg/dL Normal 0.55-1.02 [facility] Comment on above: Result Comment: The validity of the calculated GFR GFRAA in patients over70 years has not been determined. Clinical correlation isessential. Performed By: #### L 500.2500 ####[facility] [address] [place], [address] ECRCL 55.95 ml/min Normal [facility] Comment on above: Performed By: #### L 500.2500 ####[facility] [address] [place], [address] EST GFR - AA 80 mL/min Normal >60 [facility] Comment on above: Result Comment: Afri can Israeli GFR Calc Performed By: #### L 500.2500 ####[facility] [address] [place], [address] GAP 4 Low 5-15 [facility] Comment on above: Performed By: #### L 500.2500 ####[facility] [address] [place], [address] GFR/1.73 sq M.predicted among non-blacks MDRD (S/P/Bld) [Vol rate/Area] 66 mL/min/{1.73_m2} Normal >60 [facility] Comment on above: Result Comment: Non- GFR Calc Performed By: #### L 500.2500 ####[facility] [address] [place], [address] Glucose [Mass/Vol] 116 mg/dL High 74-106 [facility] Comment on above: Result Comment: Fast ing Glucose result from 100 to 125 mg/dLsuggests IMPAIRED HOMEOSTASIS per A.D.A. criteria. Performed By: #### L 500.2500 ####[facility] [address] [place], [address] Potassium [Moles/Vol] 3.9 mmol/L Normal 3.5-5.1 [facility] Comment on above: Performed By: #### L 500.2500 ####[facility] [address] [place], [address] Sodium [Moles/Vol] 138 mmol/L Normal 136-145 [facility] Comment on above: Performed By: #### L 500.2500 ####[facility] [address] [place], [address] Urea nitrogen [Mass/Vol] 19 mg/dL High 7-18 [facility] Comment on above: Performed By: #### L 500.2500 ####[facility] [address] [place], [address] CBC W/Diff, Automatedon 08-0 1-4 Absolute Lymph 1.26 X10 3/uL Normal 0.83-4.51 [facility] Comment on above: Performed By: #### L 100.0100 ####[facility] [address] [place], [address] Absolute Neut 3.6 X10 3/uL Normal 2.0-7.7 [facility] Comment on above: Performed By: #### L 100.0100 ####[facility] [address] [place], [address] Basophils/100 WBC (Bld) 0.7 % Normal 0-1 [facility] Comment on above: Performed By: #### L 100.0100 ####[facility] [address] [place], [address] Eosinophils/100 WBC (Bld) 3.4 % Normal 0-5 [facility] Comment on above: Performed By: #### L 100.0100 ####[facility] [address] [place], [address] Erythrocyte distribution width (RBC) [Ratio] 13.6 % Normal 11.6-14.6 [facility] Comment on above: Performed By: #### L 100.0100 ####[facility] [address] [place], [address] Hematocrit (Bld) [Volume fraction] 38.3 % Normal 37-47 [facility] Comment on above: Performed By: #### L 100.0100 ####[facility] [address] [place], [address] Hemoglobin (Bld) [Mass/Vol] 12.3 g/dL Normal 12.0-15.0 [facility] Comment on above: Performed By: #### L 100.0100 ####[facility] [address] [place], [address] IG% 0.500 Normal 0.0-0.9 [facility] Comment on above: Result Comment: IG% - Immature Granulocytes (promyelocytes, myelocytes andmetamyelocytes) > 1% indicates that a LEFT SHIFT is Present. Performed By: #### L 100.0100 ####[facility] [address] [place], [address] Lymphocytes/100 WBC (Bld) 22.9 % Normal 19-41 [facility] Comment on above: Performed By: #### L 100.0100 ####[facility] [address] [place], [address] MCH (RBC) [Entitic mass] 30.4 pg Normal 27.0-32.0 [facility] Comment on above: Performed By: #### L 100.0100 ####[facility] [address] [place], [address] MCHC (RBC) [Mass/Vol] 32.1 g/dL Normal 32-36 [facility] Comment on above: Performed By: #### L 100.0100 ####[facility] [address] [place], [address] MCV (RBC) [Entitic vol] 94.8 fL Normal 81-99 [facility] Comment on above: Performed By: #### L 100.0100 ####[facility] [address] [place], [address] Monocytes/100 WBC (Bld) 7.6 % Normal 0-10 [facility] Comment on above: Performed By: #### L 100.0100 ####[facility] [address] [place], [address] Neutrophils/100 WBC (Bld) 64.9 % Normal 47-70 [facility] Comment on above: Performed By: #### L 100.0100 ####[facility] [address] [place], [address] Nucleated RBC (Bld) [#/Vol] 0 10*3/uL Normal 0-5 [facility] Comment on above: Performed By: #### L 100.0100 ####[facility] [address] [place], [address] Platelet mean volume (Bld) [Entitic vol] 9.6 fL Normal 6.2-12.0 [facility] Comment on above: Performed By: #### L 100.0100 ####[facility] [address] [place], [address] Platelets (Bld) [#/Vol] 212 10*3/uL Normal 150-450 [facility] Comment on above: Performed By: #### L 100.0100 ####[facility] [address] [place], [address] RBC (Bld) [#/Vol] 4.04 10*6/uL Low 4.2-5.4 [facility] Comment on above: Performed By: #### L 100.0100 ####[facility] [address] [place], [address] RDW SD 47.2 fl High 35.1-43.9 [facility] Comment on above: Performed By: #### L 100.0100 ####[facility] [address] [place], [address] WBC (Bld) [#/Vol] 5.5 10*3/uL Normal 4.4-11.0 [facility] Comment on above: Performed By: #### L 100.0100 ####[facility] [address] [place], [address] COVID 19 AG RAPID (SHERITA Ruiz)on 03-13-2024 SARS-CoV-2 (COVID-19) RNA YASMIN+probe Ql (Unsp spec) Normal [facility] Comment on above: Performed By: #### M 100.505 ####[facility] [address] [place], [address] Basic Metabolic Profile (BMP )on 03-11-2024 BUN/CRE 24.8 RATIO High 10-20 [facility] Comment on above: Performed By: #### L 500.2500, L100.0100 ####[facility] [address] [place], [address] CA,Total 8.7 mg/dL Normal 8.5-10.1 [facility] Comment on above: Performed By: #### L 500.2500, L100.0100 ####[facility] [address] [place], [address] Chloride [Moles/Vol] 107 mmol/L Normal 98-107 [facility] Comment on above: Performed By: #### L 500.2500, L100.0100 ####[facility] [address] [place], [address] CO2 [Moles/Vol] 27.0 mmol/L Normal 21.0-32.0 [facility] Comment on above: Performed By: #### L 500.2500, L100.0100 ####[facility] [address] [place], [address] Creatinine [Mass/Vol] 0.85 mg/dL Normal 0.55-1.02 [facility] Comment on above: Result Comment: The validity of the calculated GFR GFRAA in patients over70 years has not been determined. Clinical correlation isessential. Performed By: #### L 500.2500, L100.0100 ####[facility] [address] [place], [address] ECRCL 56.90 ml/min Normal [facility] Comment on above: Performed By: #### L 500.2500, L100.0100 ####[facility] [address] [place], [address] EST GFR - AA 83 mL/min Normal >60 [facility] Comment on above: Result Comment: Afri can Israeli GFR Calc Performed By: #### L 500.2500, L100.0100 ####[facility] [address] [place], [address] GAP 5 Normal 5-15 [facility] Comment on above: Performed By: #### L 500.2500, L100.0100 ####[facility] [address] [place], [address] GFR/1.73 sq M.predicted among non-blacks MDRD (S/P/Bld) [Vol rate/Area] 68 mL/min/{1.73_m2} Normal >60 [facility] Comment on above: Result Comment: Non- GFR Calc Performed By: #### L 500.2500, L100.0100 ####[facility] [address] [place], [address] Glucose [Mass/Vol] 102 mg/dL Normal 74-106 [facility] Comment on above: Result Comment: Fast ing Glucose result from 100 to 125 mg/dLsuggests IMPAIRED HOMEOSTASIS per A.D.A. criteria. Performed By: #### L 500.2500, L100.0100 ####[facility] [address] [place], [address] Potassium [Moles/Vol] 4.1 mmol/L Normal 3.5-5.1 [facility] Comment on above: Performed By: #### L 500.2500, L100.0100 ####[facility] [address] [place], [address] Sodium [Moles/Vol] 139 mmol/L Normal 136-145 [facility] Comment on above: Performed By: #### L 500.2500, L100.0100 ####[facility] [address] [place], [address] Urea nitrogen [Mass/Vol] 21 mg/dL High 7-18 [facility] Comment on above: Performed By: #### L 500.2500, L100.0100 ####[facility] [address] [place], [address] CBC W/Diff, Automatedon 07-3 0-2024 Absolute Lymph 1.46 X10 3/uL Normal 0.83-4.51 [facility] Comment on above: Performed By: #### L 500.2500, L100.0100 ####[facility] [address] [place], [address] Absolute Neut 3.7 X10 3/uL Normal 2.0-7.7 [facility] Comment on above: Performed By: #### L 500.2500, L100.0100 ####[facility] [address] [place], [address] Basophils/100 WBC (Bld) 0.8 % Normal 0-1 [facility] Comment on above: Performed By: #### L 500.2500, L100.0100 ####[facility] [address] [place], [address] Eosinophils/100 WBC (Bld) 2.7 % Normal 0-5 [facility] Comment on above: Performed By: #### L 500.2500, L100.0100 ####[facility] [address] [place], [address] Erythrocyte distribution width (RBC) [Ratio] 13.8 % Normal 11.6-14.6 [facility] Comment on above: Performed By: #### L 500.2500, L100.0100 ####[facility] [address] [place], [address] Hematocrit (Bld) [Volume fraction] 35.9 % Low 37-47 [facility] Comment on above: Performed By: #### L 500.2500, L100.0100 ####[facility] [address] [place], [address] Hemoglobin (Bld) [Mass/Vol] 11.5 g/dL Low 12.0-15.0 [facility] Comment on above: Performed By: #### L 500.2500, L100.0100 ####[facility] [address] [place], [address] IG% 0.500 Normal 0.0-0.9 [facility] Comment on above: Result Comment: IG% - Immature Granulocytes (promyelocytes, myelocytes andmetamyelocytes) > 1% indicates that a LEFT SHIFT is Present. Performed By: #### L 500.2500, L100.0100 ####[facility] [address] [place], [address] Lymphocytes/100 WBC (Bld) 24.6 % Normal 19-41 [facility] Comment on above: Performed By: #### L 500.2500, L100.0100 ####[facility] [address] [place], [address] MCH (RBC) [Entitic mass] 30.6 pg Normal 27.0-32.0 [facility] Comment on above: Performed By: #### L 500.2500, L100.0100 ####[facility] [address] [place], [address] MCHC (RBC) [Mass/Vol] 32.0 g/dL Normal 32-36 [facility] Comment on above: Performed By: #### L 500.2500, L100.0100 ####[facility] [address] [place], [address] MCV (RBC) [Entitic vol] 95.5 fL Normal 81-99 [facility] Comment on above: Performed By: #### L 500.2500, L100.0100 ####[facility] [address] [place], [address] Monocytes/100 WBC (Bld) 8.9 % Normal 0-10 [facility] Comment on above: Performed By: #### L 500.2500, L100.0100 ####[facility] [address] [place], [address] Neutrophils/100 WBC (Bld) 62.5 % Normal 47-70 [facility] Comment on above: Performed By: #### L 500.2500, L100.0100 ####[facility] [address] [place], [address] Nucleated RBC (Bld) [#/Vol] 0 10*3/uL Normal 0-5 [facility] Comment on above: Performed By: #### L 500.2500, L100.0100 ####[facility] [address] [place], [address] Platelet mean volume (Bld) [Entitic vol] 9.9 fL Normal 6.2-12.0 [facility] Comment on above: Performed By: #### L 500.2500, L100.0100 ####[facility] [address] [place], [address] Platelets (Bld) [#/Vol] 194 10*3/uL Normal 150-450 [facility] Comment on above: Performed By: #### L 500.2500, L100.0100 ####[facility] [address] [place], [address] RBC (Bld) [#/Vol] 3.76 10*6/uL Low 4.2-5.4 [facility] Comment on above: Performed By: #### L 500.2500, L100.0100 ####[facility] [address] [place], [address] RDW SD 48.3 fl High 35.1-43.9 [facility] Comment on above: Performed By: #### L 500.2500, L100.0100 ####[facility] [address] [place], [address] WBC (Bld) [#/Vol] 5.9 10*3/uL Normal 4.4-11.0 [facility] Comment on above: Performed By: #### L 500.2500, L100.0100 ####[facility] [address] [place], [address] Extremity Upper without Cont raon 03-10-2024 Extremity Upper without Contra Normal [facility] Miscellaneous Lab Procedureo n 03-10-2024 MISC LAB TEST Normal [facility] Comment on above: Order Comment: URINE TOX [id number] *RUN LOWEST TEST*URINE TOX [id number] *RUN LOWEST TEST* Result Comment: [id number] 6+OXYCODONE-BUND (ng/mL)DRUG RESULT SCREEN CUTOFF____ Amphetamines,Urine Negative ng/mL 1000Amphetamine test includes Amphetamine and Methamphetamine.Barbiturates Negative ng/mL 200Benzodiazepines Negative ng/mL 200Cannabinoid Negative ng/mL 20Cocaine (Metab) Negative ng/mL 300Opiates Positive ng/mL 300 Opiates test includes Codeine, Morphine, Hydromorphone, Hydrocodone. Codeine Negative 300 Morphine Negative 300 Hydromorphone PositiveHydromorphone Conf,MS,UR 313 ng/mL 300 Hydrocodone PositiveHydrocodone Conf,MS,UR >3000 ng/mL 300Oxycodone/Oxymorphone,Urine Negative ng/mL 300 Test includes Oxycodone and Oxymorphone. TESTING PERFORMED AT [facility]. ORIGINAL REPORT ON FILE IN LAB CONTAINS ADDITIONAL TEST SITE INFORMATION. Performed By: #### L 801.1541, L505.5000 ####[facility] [address] [place], [address] Basic Metabolic Profile (BMP )on 03-09-2024 BUN/CRE 25.9 RATIO High 10-20 [facility] Comment on above: Performed By: #### L 100.0100, L500.2500 ####[facility] [address] [place], [address] CA,Total 9.3 mg/dL Normal 8.5-10.1 [facility] Comment on above: Performed By: #### L 100.0100, L500.2500 ####[facility] [address] [place], [address] Chloride [Moles/Vol] 109 mmol/L High 98-107 [facility] Comment on above: Performed By: #### L 100.0100, L500.2500 ####[facility] [address] [place], [address] CO2 [Moles/Vol] 28.0 mmol/L Normal 21.0-32.0 [facility] Comment on above: Performed By: #### L 100.0100, L500.2500 ####[facility] [address] [place], [address] Creatinine [Mass/Vol] 1.12 mg/dL High 0.55-1.02 [facility] Comment on above: Result Comment: The validity of the calculated GFR GFRAA in patients over70 years has not been determined. Clinical correlation isessential. Performed By: #### L 100.0100, L500.2500 ####[facility] [address] [place], [address] ECRCL 42.23 ml/min Normal [facility] Comment on above: Performed By: #### L 100.0100, L500.2500 ####[facility] [address] [place], [address] EST GFR - AA 60 mL/min Normal >60 [facility] Comment on above: Result Comment: Afri can Israeli GFR Calc Performed By: #### L 100.0100, L500.2500 ####[facility] [address] [place], [address] GAP 4 Low 5-15 [facility] Comment on above: Performed By: #### L 100.0100, L500.2500 ####[facility] [address] [place], [address] GFR/1.73 sq M.predicted among non-blacks MDRD (S/P/Bld) [Vol rate/Area] 50 mL/min/{1.73_m2} Low >60 [facility] Comment on above: Result Comment: Non- GFR Calc Performed By: #### L 100.0100, L500.2500 ####[facility] [address] [place], [address] Glucose [Mass/Vol] 128 mg/dL High 74-106 [facility] Comment on above: Result Comment: Fast ing Glucose result greater than or equal to 126 mg/dLsuggests DIABETES MELLITUS per A.D.A. criteria. Performed By: #### L 100.0100, L500.2500 ####[facility] [address] [place], [address] Potassium [Moles/Vol] 4.1 mmol/L Normal 3.5-5.1 [facility] Comment on above: Performed By: #### L 100.0100, L500.2500 ####[facility] [address] [place], [address] Sodium [Moles/Vol] 141 mmol/L Normal 136-145 [facility] Comment on above: Performed By: #### L 100.0100, L500.2500 ####[facility] [address] [place], [address] Urea nitrogen [Mass/Vol] 29 mg/dL High 7-18 [facility] Comment on above: Performed By: #### L 100.0100, L500.2500 ####[facility] [address] [place], [address] Brain/Head without Contrasto n 03-09-2023 Brain/Head without Contrast Normal [facility] CBC W/Diff, Automatedon 07-2 -2023 Absolute Lymph 1.73 X10 3/uL Normal 0.83-4.51 [facility] Comment on above: Performed By: #### L 100.0100, L500.2500 ####[facility] [address] [place], [address] Absolute Neut 5.2 X10 3/uL Normal 2.0-7.7 [facility] Comment on above: Performed By: #### L 100.0100, L500.2500 ####[facility] [address] [place], [address] Basophils/100 WBC (Bld) 0.6 % Normal 0-1 [facility] Comment on above: Performed By: #### L 100.0100, L500.2500 ####[facility] [address] [place], [address] Eosinophils/100 WBC (Bld) 1.5 % Normal 0-5 [facility] Comment on above: Performed By: #### L 100.0100, L500.2500 ####[facility] [address] [place], [address] Erythrocyte distribution width (RBC) [Ratio] 13.5 % Normal 11.6-14.6 [facility] Comment on above: Performed By: #### L 100.0100, L500.2500 ####[facility] [address] [place], [address] Hematocrit (Bld) [Volume fraction] 38.1 % Normal 37-47 [facility] Comment on above: Performed By: #### L 100.0100, L500.2500 ####[facility] [address] [place], [address] Hemoglobin (Bld) [Mass/Vol] 12.2 g/dL Normal 12.0-15.0 [facility] Comment on above: Performed By: #### L 100.0100, L500.2500 ####[facility] [address] [place], [address] IG% 0.500 Normal 0.0-0.9 [facility] Comment on above: Result Comment: IG% - Immature Granulocytes (promyelocytes, myelocytes andmetamyelocytes) > 1% indicates that a LEFT SHIFT is Present. Performed By: #### L 100.0100, L500.2500 ####[facility] [address] [place], [address] Lymphocytes/100 WBC (Bld) 22.3 % Normal 19-41 [facility] Comment on above: Performed By: #### L 100.0100, L500.2500 ####[facility] [address] [place], [address] MCH (RBC) [Entitic mass] 30.7 pg Normal 27.0-32.0 [facility] Comment on above: Performed By: #### L 100.0100, L500.2500 ####[facility] [address] [place], [address] MCHC (RBC) [Mass/Vol] 32.0 g/dL Normal 32-36 [facility] Comment on above: Performed By: #### L 100.0100, L500.2500 ####[facility] [address] [place], [address] MCV (RBC) [Entitic vol] 95.7 fL Normal 81-99 [facility] Comment on above: Performed By: #### L 100.0100, L500.2500 ####[facility] [address] [place], [address] Monocytes/100 WBC (Bld) 7.4 % Normal 0-10 [facility] Comment on above: Performed By: #### L 100.0100, L500.2500 ####[facility] [address] [place], [address] Neutrophils/100 WBC (Bld) 67.7 % Normal 47-70 [facility] Comment on above: Performed By: #### L 100.0100, L500.2500 ####[facility] [address] [place], [address] Nucleated RBC (Bld) [#/Vol] 0 10*3/uL Normal 0-5 [facility] Comment on above: Performed By: #### L 100.0100, L500.2500 ####[facility] [address] [place], [address] Platelet mean volume (Bld) [Entitic vol] 9.4 fL Normal 6.2-12.0 [facility] Comment on above: Performed By: #### L 100.0100, L500.2500 ####[facility] [address] [place], [address] Platelets (Bld) [#/Vol] 201 10*3/uL Normal 150-450 [facility] Comment on above: Performed By: #### L 100.0100, L500.2500 ####[facility] [address] [place], [address] RBC (Bld) [#/Vol] 3.98 10*6/uL Low 4.2-5.4 [facility] Comment on above: Performed By: #### L 100.0100, L500.2500 ####[facility] [address] [place], [address] RDW SD 47.6 fl High 35.1-43.9 [facility] Comment on above: Performed By: #### L 100.0100, L500.2500 ####[facility] [address] [place], [address] WBC (Bld) [#/Vol] 7.8 10*3/uL Normal 4.4-11.0 [facility] Comment on above: Performed By: #### L 100.0100, L500.2500 ####[facility] [address] [place], [address] Emergency Department Summary on 03-09-2024 Emergency Department Summary Normal [facility] H AND P Exam - Hospitaliston 03-09-2024 H&P Exam - Hospitalist Normal [facility] Shoulder min 2 Viewson 03-09 Shoulder min 2 Views Normal [facility] Urine Drug Screen (VISTA)on 03-06-2024 AMPHETAMINES Negative Normal <1000 ng/mL [facility] Comment on above: Order Comment: UNK Performed By: #### L 801.1541, L505.5000 ####[facility] [address] [place], [address] BARBITIURATES Negative Normal < 200 ng/mL [facility] Comment on above: Order Comment: UNK Performed By: #### L 801.1541, L505.5000 ####[facility] [address] [place], [address] BENZODIAZIPINE Negative Normal < 200 ng/mL [facility] Comment on above: Order Comment: UNK Performed By: #### L 801.1541, L505.5000 ####[facility] [address] [place], [address] COCAINE Negative Normal < 300 ng/mL [facility] Comment on above: Order Comment: UNK Performed By: #### L 801.1541, L505.5000 ####[facility] [address] [place], [address] ECSTACY Negative Normal < 500 ng/mL [facility] Comment on above: Order Comment: UNK Performed By: #### L 801.1541, L505.5000 ####[facility] [address] [facility] [address] METHADONE Negative Normal < 300 ng/mL [facility] Comment on above: Order Comment: UNK Performed By: #### L 801.1541, L505.5000 ####[facility] [address] [place], [address] OPIATES Positive Abnormal < 300 ng/mL [facility] Comment on above: Order Comment: UNK Performed By: #### L 801.1541, L505.5000 ####[facility] [address] [place], [address] PCP Negative Normal < 25 ng/mL [facility] Comment on above: Order Comment: UNK Performed By: #### L 801.1541, L505.5000 ####[facility] [address] [place], [address] THC Negative Normal < 50 ng/mL [facility] Comment on above: Order Comment: UNK Performed By: #### L 801.1541, L505.5000 ####[facility] [address] [place], [address] VISTA UDS PH 4 Normal [facility] Comment on above: Order Comment: UNK Performed By: #### L 801.1541, L505.5000 ####[facility] [address] [place], [address] CBC W/Diff, Automatedon 07- Absolute Lymph 1.27 X10 3/uL Normal 0.83-4.51 [facility] Comment on above: Performed By: #### L 506.1000, L501.9520, L100.0100, L500.4050, L500.4100 ####[facility] [address] [place], [address] Absolute Neut 3.1 X10 3/uL Normal 2.0-7.7 [facility] Comment on above: Performed By: #### L 506.1000, L501.9520, L100.0100, L500.4050, L500.4100 ####[facility] [address] [place], [address] Basophils/100 WBC (Bld) 1.0 % Normal 0-1 [facility] Comment on above: Performed By: #### L 506.1000, L501.9520, L100.0100, L500.4050, L500.4100 ####[facility] [address] [place], [address] Eosinophils/100 WBC (Bld) 1.8 % Normal 0-5 [facility] Comment on above: Performed By: #### L 506.1000, L501.9520, L100.0100, L500.4050, L500.4100 ####[facility] [address] [place], [address] Erythrocyte distribution width (RBC) [Ratio] 13.9 % Normal 11.6-14.6 [facility] Comment on above: Performed By: #### L 506.1000, L501.9520, L100.0100, L500.4050, L500.4100 ####[facility] [address] [place], [address] Hematocrit (Bld) [Volume fraction] 39.4 % Normal 37-47 [facility] Comment on above: Performed By: #### L 506.1000, L501.9520, L100.0100, L500.4050, L500.4100 ####[facility] [address] [place], [address] Hemoglobin (Bld) [Mass/Vol] 12.5 g/dL Normal 12.0-15.0 [facility] Comment on above: Performed By: #### L 506.1000, L501.9520, L100.0100, L500.4050, L500.4100 ####[facility] [address] [place], [address] IG% 0.600 Normal 0.0-0.9 [facility] Comment on above: Result Comment: IG% - Immature Granulocytes (promyelocytes, myelocytes andmetamyelocytes) > 1% indicates that a LEFT SHIFT is Present. Performed By: #### L 506.1000, L501.9520, L100.0100, L500.4050, L500.4100 ####[facility] [address] [place], [address] Lymphocytes/100 WBC (Bld) 25.5 % Normal 19-41 [facility] Comment on above: Performed By: #### L 506.1000, L501.9520, L100.0100, L500.4050, L500.4100 ####[facility] [address] [place], [address] MCH (RBC) [Entitic mass] 29.8 pg Normal 27.0-32.0 [facility] Comment on above: Performed By: #### L 506.1000, L501.9520, L100.0100, L500.4050, L500.4100 ####[facility] [address] [place], [address] MCHC (RBC) [Mass/Vol] 31.7 g/dL Low 32-36 [facility] Comment on above: Performed By: #### L 506.1000, L501.9520, L100.0100, L500.4050, L500.4100 ####[facility] [address] [place], [address] MCV (RBC) [Entitic vol] 94.0 fL Normal 81-99 [facility] Comment on above: Performed By: #### L 506.1000, L501.9520, L100.0100, L500.4050, L500.4100 ####[facility] [address] [place], [address] Monocytes/100 WBC (Bld) 8.8 % Normal 0-10 [facility] Comment on above: Performed By: #### L 506.1000, L501.9520, L100.0100, L500.4050, L500.4100 ####[facility] [address] [place], [address] Neutrophils/100 WBC (Bld) 62.3 % Normal 47-70 [facility] Comment on above: Performed By: #### L 506.1000, L501.9520, L100.0100, L500.4050, L500.4100 ####[facility] [address] [place], [address] Nucleated RBC (Bld) [#/Vol] 0 10*3/uL Normal 0-5 [facility] Comment on above: Performed By: #### L 506.1000, L501.9520, L100.0100, L500.4050, L500.4100 ####[facility] [address] [place], [address] Platelet mean volume (Bld) [Entitic vol] 9.9 fL Normal 6.2-12.0 [facility] Comment on above: Performed By: #### L 506.1000, L501.9520, L100.0100, L500.4050, L500.4100 ####[facility] [address] [place], [address] Platelets (Bld) [#/Vol] 256 10*3/uL Normal 150-450 [facility] Comment on above: Performed By: #### L 506.1000, L501.9520, L100.0100, L500.4050, L500.4100 ####[facility] [address] [place], [address] RBC (Bld) [#/Vol] 4.19 10*6/uL Low 4.2-5.4 [facility] Comment on above: Performed By: #### L 506.1000, L501.9520, L100.0100, L500.4050, L500.4100 ####[facility] [address] [place], [address] RDW SD 47.5 fl High 35.1-43.9 [facility] Comment on above: Performed By: #### L 506.1000, L501.9520, L100.0100, L500.4050, L500.4100 ####[facility] [address] [place], [address] WBC (Bld) [#/Vol] 5.0 10*3/uL Normal 4.4-11.0 [facility] Comment on above: Performed By: #### L 506.1000, L501.9520, L100.0100, L500.4050, L500.4100 ####[facility] [address] [place], [address] Comprehensive Metabolic Prof ilon 07-11-2024 Albumin [Mass/Vol] 3.3 g/dL Normal 3.2-5.0 [facility] Comment on above: Performed By: #### L 506.1000, L501.9520, L100.0100, L500.4050, L500.4100 ####[facility] [address] [place], [address] Albumin/Globulin [Mass ratio] 0.8 {ratio} Low 0.9-2.4 [facility] Comment on above: Performed By: #### L 506.1000, L501.9520, L100.0100, L500.4050, L500.4100 ####[facility] [address] [place], [address] ALK P 64 U/L Normal 45-117 [facility] Comment on above: Performed By: #### L 506.1000, L501.9520, L100.0100, L500.4050, L500.4100 ####[facility] [address] [place], [address] ALT [Catalytic activity/Vol] 16 U/L Normal 13-56 [facility] Comment on above: Performed By: #### L 506.1000, L501.9520, L100.0100, L500.4050, L500.4100 ####[facility] [facility] [address] [place], [address] AST [Catalytic activity/Vol] 16 U/L Normal 15-37 [facility] Comment on above: Performed By: #### L 506.1000, L501.9520, L100.0100, L500.4050, L500.4100 ####[facility] [address] [place], [address] Bilirubin [Mass/Vol] 0.40 mg/dL Normal 0.20-1.00 [facility] Comment on above: Result Comment: For patients on eltrombopag therapy, use of Dimension [place] TBIL is not recommended. Performed By: #### L 506.1000, L501.9520, L100.0100, L500.4050, L500.4100 ####[facility] [address] [place], [address] BUN/CRE 21.0 RATIO High 10-20 [facility] Comment on above: Performed By: #### L 506.1000, L501.9520, L100.0100, L500.4050, L500.4100 ####[facility] [address] [place], [address] CA,Total 9.3 mg/dL Normal 8.5-10.1 [facility] Comment on above: Performed By: #### L 506.1000, L501.9520, L100.0100, L500.4050, L500.4100 ####[facility] [address] [place], [address] Chloride [Moles/Vol] 107 mmol/L Normal 98-107 [facility] Comment on above: Performed By: #### L 506.1000, L501.9520, L100.0100, L500.4050, L500.4100 ####[facility] [address] [place], [address] CO2 [Moles/Vol] 26.0 mmol/L Normal 21.0-32.0 [facility] Comment on above: Performed By: #### L 506.1000, L501.9520, L100.0100, L500.4050, L500.4100 ####[facility] [address] [place], [address] Creatinine [Mass/Vol] 1.00 mg/dL Normal 0.55-1.02 [facility] Comment on above: Result Comment: The validity of the calculated GFR GFRAA in patients over70 years has not been determined. Clinical correlation isessential. Performed By: #### L 506.1000, L501.9520, L100.0100, L500.4050, L500.4100 ####[facility] [address] [place], [address] EST GFR - AA 68 mL/min Normal >60 [facility] Comment on above: Result Comment: Afri can Israeli GFR Calc Performed By: #### L 506.1000, L501.9520, L100.0100, L500.4050, L500.4100 ####[facility] [address] [place], [address] GAP 7 Normal 5-15 [facility] Comment on above: Performed By: #### L 506.1000, L501.9520, L100.0100, L500.4050, L500.4100 ####[facility] [address] [place], [address] GFR/1.73 sq M.predicted among non-blacks MDRD (S/P/Bld) [Vol rate/Area] 57 mL/min/{1.73_m2} Low >60 [facility] Comment on above: Result Comment: Non- GFR Calc Performed By: #### L 506.1000, L501.9520, L100.0100, L500.4050, L500.4100 ####[facility] [address] [place], [address] Globulin (S) [Mass/Vol] 4.1 g/dL Normal 2.2-4.2 [facility] Comment on above: Performed By: #### L 506.1000, L501.9520, L100.0100, L500.4050, L500.4100 ####[facility] [address] [place], [address] Glucose [Mass/Vol] 102 mg/dL Normal 74-106 [facility] Comment on above: Result Comment: Fast ing Glucose result from 100 to 125 mg/dLsuggests IMPAIRED HOMEOSTASIS per A.D.A. criteria. Performed By: #### L 506.1000, L501.9520, L100.0100, L500.4050, L500.4100 ####[facility] [address] [place], [address] Potassium [Moles/Vol] 4.3 mmol/L Normal 3.5-5.1 [facility] Comment on above: Performed By: #### L 506.1000, L501.9520, L100.0100, L500.4050, L500.4100 ####[facility] [address] [place], [address] Sodium [Moles/Vol] 140 mmol/L Normal 136-145 [facility] Comment on above: Performed By: #### L 506.1000, L501.9520, L100.0100, L500.4050, L500.4100 ####[facility] [address] [place], [address] T PROT 7.4 g/dL Normal 6.4-8.2 [facility] Comment on above: Performed By: #### L 506.1000, L501.9520, L100.0100, L500.4050, L500.4100 ####[facility] [address] [place], [address] Urea nitrogen [Mass/Vol] 21 mg/dL High 7-18 [facility] Comment on above: Performed By: #### L 506.1000, L501.9520, L100.0100, L500.4050, L500.4100 ####[facility] [address] [place], [address] Lipid Profileon 02-21-2024 Cholesterol [Mass/Vol] 211 mg/dL High 200 [facility] Comment on above: Result Comment: <200 mg/dL Desirable 200-240 mg/dL Borderline >240 mg/dL High Risk Performed By: #### L 506.1000, L501.9520, L100.0100, L500.4050, L500.4100 ####[facility] [address] [place], [address] Cholesterol in HDL [Mass/Vol] 38 mg/dL Low [facility] Comment on above: Result Comment: The drugs N-Acetylcysteine and Metamizole may falselydepress this assay. Reference Range HDL <40 mg/dL Low HDL Cholesterol HDL >or= 60 mg/dL High HDL Cholesterol Performed By: #### L 506.1000, L501.9520, L100.0100, L500.4050, L500.4100 ####[facility] [address] [place], [address] Cholesterol in LDL [Mass/Vol] 124 mg/dL Normal 0-130 [facility] Comment on above: Performed By: #### L 506.1000, L501.9520, L100.0100, L500.4050, L500.4100 ####[facility] [address] [place], [address] Cholesterol in VLDL [Mass/Vol] 49 mg/dL High 5-40 [facility] Comment on above: Performed By: #### L 506.1000, L501.9520, L100.0100, L500.4050, L500.4100 ####[facility] [address] [place], [address] Triglyceride [Mass/Vol] 245 mg/dL High [facility] Comment on above: Result Comment: The drugs N-Acetylcysteine and Metamizole may falselydepress this assay.Serum Triglycerides Reference Interval Normal <150 mg/dL Borderline high 150 - 199 mg/dL High 200 - 499 mg/dL Very High > or = 500 mg/dL Performed By: #### L 506.1000, L501.9520, L100.0100, L500.4050, L500.4100 ####[facility] [address] [place], [address] Thyroid Stim Hormone (TSH)on 02-21-2024 TSH 3.24 uIU/mL Normal 0.358-3.74 [facility] Comment on above: Performed By: #### L 506.1000, L501.9520, L100.0100, L500.4050, L500.4100 ####[facility] [address] [place], [address] Vitamin D,25 Hydroxyon 02-20 Vitamin D 25-OH 13.0 ng/mL Normal [facility] Comment on above: Result Comment: Louisa min D 25(OH) Status Range Deficiency <20 ng/mL (50nmol/L) Insufficiency 20 - 30 ng/mL (50 - 75 nmol/L) Sufficiency 30 - 100 ng/mL (75 - 250 nmol/L) Toxicity >100 ng/mL (>250 nmol/L) Performed By: #### L 506.1000, L501.9520, L100.0100, L500.4050, L500.4100 ####[facility] [address] [place], [place], [id number] Venous Duplex US, Unilateral on 01-25-2024 Venous Duplex US, Unilateral Normal [facility] L/S Spine Min 4 Viewson 01-11 L/S Spine Min 4 Views Normal [facility] Miscellaneous Lab Procedureo n 01-14-2024 MISC LAB TEST Normal [facility] Comment on above: Order Comment: RUN L OWEST [id number] Result Comment: [id number] 6+OXYCODONE-BUND (ng/mL)DRUG RESULT SCREEN CUTOFF____ Amphetamines,Urine Negative ng/mL 1000Amphetamine test includes Amphetamine and Methamphetamine.Barbiturates Negative ng/mL 200Benzodiazepines Negative ng/mL 200Cannabinoid Negative ng/mL 20Cocaine (Metab) Negative ng/mL 300Opiates Positive ng/mL 300 Opiates test includes Codeine, Morphine, Hydromorphone, Hydrocodone. Codeine Negative 300 Morphine Negative 300 Hydromorphone PositiveHydromorphone Conf,MS,UR 651 ng/mL 300 Hydrocodone PositiveHydrocodone Conf,MS,UR 2815 ng/mL 300Oxycodone/Oxymorphone,Urine Negative ng/mL 300 Test includes Oxycodone and Oxymorphone. TESTING PERFORMED AT [facility]. ORIGINAL REPORT ON FILE IN LAB CONTAINS ADDITIONAL TEST SITE INFORMATION. Performed By: #### L 505.5000, L801.1541 ####[facility] [address] [facility] [id number] Urine Drug Screen (VISTA)on 01-10-2024 AMPHETAMINES Negative Normal <1000 ng/mL [facility] Comment on above: Order Comment: UNKNO WN Performed By: #### L 505.5000, L801.1541 ####[facility] [address] [place], [place], [address] BARBITIURATES Negative Normal < 200 ng/mL [facility] Comment on above: Order Comment: UNKNO WN Performed By: #### L 505.5000, L801.1541 ####[facility] [address] [facility] [id number] BENZODIAZIPINE Negative Normal < 200 ng/mL [facility] Comment on above: Order Comment: UNKNO WN Performed By: #### L 505.5000, L801.1541 ####[facility] [address] [place], [place], [address] COCAINE Negative Normal < 300 ng/mL [facility] Comment on above: Order Comment: UNKNO WN Performed By: #### L 505.5000, L801.1541 ####[facility] [address] [place], [address] ECSTACY Negative Normal < 500 ng/mL [facility] Comment on above: Order Comment: UNKNO WN Performed By: #### L 505.5000, L801.1541 ####[facility] [address] [place], [address] METHADONE Negative Normal < 300 ng/mL [facility] Comment on above: Order Comment: UNKNO WN Performed By: #### L 505.5000, L801.1541 ####[facility] [address] [place], [address] OPIATES Positive Abnormal < 300 ng/mL [facility] Comment on above: Order Comment: UNKNO WN Performed By: #### L 505.5000, L801.1541 ####[facility] [address] [place], [address] PCP Negative Normal < 25 ng/mL [facility] Comment on above: Order Comment: UNKNO WN Performed By: #### L 505.5000, L801.1541 ####[facility] [address] [place], [address] THC Negative Normal < 50 ng/mL [facility] Comment on above: Order Comment: UNKNO WN Performed By: #### L 505.5000, L801.1541 ####[facility] [address] [place], [address] VISTA UDS PH 5 Normal [facility] Comment on above: Order Comment: UNKNO WN Performed By: #### L 505.5000, L801.1541 ####[facility] [address] [place], [address] Miscellaneous Lab Procedureo n 12-19-2023 MISC LAB TEST Normal [facility] Comment on above: Order Comment: [id number] URINE [id number] URINE TOX Result Comment: [id number] 6+OXYCODONE-BUND (ng/mL)DRUG RESULT SCREEN CUTOFF____ Amphetamines,Urine Negative ng/mL 1000Amphetamine test includes Amphetamine and Methamphetamine.Barbiturates Negative ng/mL 200Benzodiazepines Negative ng/mL 200Cannabinoid Negative ng/mL 20Cocaine (Metab) Negative ng/mL 300Opiates Positive ng/mL 300 Opiates test includes Codeine, Morphine, Hydromorphone, Hydrocodone. Codeine Negative 300 Morphine Negative 300 Hydromorphone PositiveHydromorphone Conf,MS,UR 357 ng/mL 300 Hydrocodone PositiveHydrocodone Conf,MS,UR 2175 ng/mL 300Oxycodone/Oxymorphone,Urine Negative ng/mL 300 Test includes Oxycodone and Oxymorphone. TESTING PERFORMED AT [facility]. ORIGINAL REPORT ON FILE IN LAB CONTAINS ADDITIONAL TEST SITE INFORMATION. Performed By: #### L 801.1541, L505.5000 ####[facility] [address] [place], [address] Laboratory - Drug toxicology Ordered By: Regino Forrester on 12-13-2023 Amphetamines Ql (U) Negative <1000 ng/mL [facility] Benzodiazepines Ql (U) Negative < 200 ng/mL [facility] Cannabinoids Screen Ql (U) Negative < 50 ng/mL [facility] Cocaine Ql (U) Negative < 300 ng/mL [facility] Opiates Ql (U) Positive < 300 ng/mL [facility] No Panel InformationOrdered By: Michelleamena Monicagerardo on 12-13-2023 MDMA (Ecstasy) Screen Negative < 500 ng/mL [facility] Urine Barbiturates Screen Negative < 200 ng/mL [facility] Urine Drug Screen Comment [facility] Comment on above: CONFIRMATORY TESTING FOR ALL POSITIVE URINE DRUG SCREENRESULTS WILL ONLY BE SENT OUT UPON PHYSICIAN ORDER. VISTA Urine Drug Screen methods provide only preliminaryanalytical test results. A more specific alternate chemicalmethod must be used in order to obtain a confirmedanalytical result. Gas chromatography/mass spectrometery(GC/MS) is the preferred confirmatory method. Clinicalconsideration and professional judgement should be appliedto any drug of abuse test result, particularly whenpreliminary positive results are used. URINE TCA TESTING MUST BE ORDERED SEPARATELY. USE TESTMNEMONIC: [facility] Urine Methadone Screen Negative < 300 ng/mL [facility] Urine Drug Screen (VISTA)on 12-13-2023 AMPHETAMINES Negative Normal <1000 ng/mL [facility] Comment on above: Order Comment: [id number] URINE TOXMEDTOX Performed By: #### L 801.1541, L505.5000 ####[facility] [address] [place] [address] BARBITIURATES Negative Normal < 200 ng/mL [facility] Comment on above: Order Comment: [id number] URINE TOXMEDTOX Performed By: #### L 801.1541, L505.5000 ####[facility] [address] [place] [address] BENZODIAZIPINE Negative Normal < 200 ng/mL [facility] Comment on above: Order Comment: [id number] URINE TOXMEDTOX Performed By: #### L 801.1541, L505.5000 ####[facility] [address] [place] [address] COCAINE Negative Normal < 300 ng/mL [facility] Comment on above: Order Comment: [id number] URINE TOXMEDTOX Performed By: #### L 801.1541, L505.5000 ####[facility] [address] [place], [address] ECSTACY Negative Normal < 500 ng/mL [facility] Comment on above: Order Comment: [id number] URINE TOXMEDTOX Performed By: #### L 801.1541, L505.5000 ####[facility] [address] [place], [address] METHADONE Negative Normal < 300 ng/mL [facility] Comment on above: Order Comment: [id number] URINE TOXMEDTOX Performed By: #### L 801.1541, L505.5000 ####[facility] [address] [place], [address] OPIATES Positive Abnormal < 300 ng/mL [facility] Comment on above: Order Comment: [id number] URINE TOXMEDTOX Performed By: #### L 801.1541, L505.5000 ####[facility] [address] [place], [address] PCP Negative Normal < 25 ng/mL [facility] Comment on above: Order Comment: [id number] URINE TOXMEDTOX Performed By: #### L 801.1541, L505.5000 ####[facility] [address] [place], [address] THC Negative Normal < 50 ng/mL [facility] Comment on above: Order Comment: [id number] URINE TOXMEDTOX Performed By: #### L 801.1541, L505.5000 ####[facility] [address] [place], [address] VISTA UDS PH 4 Normal [facility] Comment on above: Order Comment: [id number] URINE TOXMEDTOX Performed By: #### L 801.1541, L505.5000 ####[facility] [address] [place], [address] Urine phencyclidine (PCP) de tectionOrdered By: Regino Forrester on 12-13-2023 Phencyclidine Ql (U) Negative < 25 ng/mL [facility] Laboratory - Drug toxicology Ordered By: Regino Forrester on 11-05-2023 Amphetamines Ql (U) Negative <1000 ng/mL [facility] Benzodiazepines Ql (U) Negative < 200 ng/mL [facility] Cannabinoids Screen Ql (U) Negative < 50 ng/mL [facility] Cocaine Ql (U) Negative < 300 ng/mL [facility] Opiates Ql (U) Positive < 300 ng/mL [facility] No Panel InformationOrdered By: Regino Forrester on 11-05-2023 MDMA (Ecstasy) Screen Negative < 500 ng/mL [facility] Miscellaneous Test See comment [facility] Comment on above: [id number] 6+OXYCODONE-B UND (ng/mL) DRUG RESULT SCREEN CUTOFF____ Amphetamines,Urine Negative ng/mL 1000 Amphetamine test includes Amphetamine and Methamphetamine.Barbiturates Negative ng/mL 200Benzodiazepines Negative ng/mL 200Cannabinoid Negative ng/mL 20Cocaine (Metab) Negative ng/mL 300Opiates Positive ng/mL 300 Opiates test includes Codeine, Morphine, Hydromorphone, Hydrocodone. Codeine Negative 300 Morphine Negative 300 Hydromorphone PositiveHydromorphone Conf,MS,UR 574 ng/mL 300 Hydrocodone PositiveHydrocodone Conf,MS,UR >3000 ng/mL 300Oxycodone/Oxymorphone,Urine Negative ng/mL 300 Test includes Oxycodone and Oxymorphone. TESTING PERFORMED AT [facility]. ORIGINAL REPORT ON FILE IN LAB CONTAINS ADDITIONAL TEST SITE INFORMATION. Urine Barbiturates Screen Negative < 200 ng/mL [facility] Urine Drug Screen Comment [facility] Comment on above: CONFIRMATORY TESTING FOR ALL POSITIVE URINE DRUG SCREENRESULTS WILL ONLY BE SENT OUT UPON PHYSICIAN ORDER. VISTA Urine Drug Screen methods provide only preliminaryanalytical test results. A more specific alternate chemicalmethod must be used in order to obtain a confirmedanalytical result. Gas chromatography/mass spectrometery(GC/MS) is the preferred confirmatory method. Clinicalconsideration and professional judgement should be appliedto any drug of abuse test result, particularly whenpreliminary positive results are used. URINE TCA TESTING MUST BE ORDERED SEPARATELY. USE TESTMNEMONIC: [facility] Urine Methadone Screen Negative < 300 ng/mL [facility] Urine phencyclidine (PCP) de tectionOrdered By: Regino Forrester on 11-05-2023 Phencyclidine Ql (U) Negative < 25 ng/mL [facility] Absolute lymphocyte countOrd ered By: Rancho Matthew on 08-24-2023 Lymphocytes Auto (Unsp spec) [#/Vol] 1.88 10*3/uL 0.83-4.51 [facility] Basophil percentageOrdered B y: Rancho Matthew on 08-24-2023 Basophils/100 WBC (Bld) 1.2 % 0-1 [facility] Bilirubin [Mass/Vol] 0.40 mg/dL 0.20-1.00 [facility] Comment on above: For patients on eltr ombopag therapy, use of Dimension [place] TBIL is not recommended. Chloride [Moles/Vol] 103 mmol/L 98-107 [facility] Cholesterol [Mass/Vol] 224 mg/dL <200 [facility] Comment on above: <200 mg/dL Desirable 200-240 mg/dL Borderline >240 mg/dL High Risk Eosinophils/100 WBC (Bld) 1.4 % 0-5 [facility] Glucose [Mass/Vol] 104 mg/dL 74-106 [facility] Comment on above: Fasting Glucose resu lt from 100 to 125 mg/dL suggests IMPAIRED HOMEOSTASIS per A.D.A. criteria. Neutrophils (Bld) [#/Vol] 3.8 10*3/uL 2.0-7.7 [facility] Neutrophils/100 WBC (Bld) 57.4 % 47-70 [facility] Potassium [Moles/Vol] 3.7 mmol/L 3.5-5.1 [facility] Protein [Mass/Vol] 7.7 g/dL 6.4-8.2 [facility] Sodium [Moles/Vol] 137 mmol/L 136-145 [facility] Triglyceride [Mass/Vol] 198 mg/dL <199 [facility] Comment on above: The drugs N-Acetylcy steine and Metamizole may falsely depress this assay.Serum Triglycerides Reference Interval Normal <150 mg/dL Borderline high 150 - 199 mg/dL High 200 - 499 mg/dL Very High > or = 500 mg/dL WBC (Bld) [#/Vol] 6.5 10*3/uL 4.4-11.0 [facility] Blood erythrocytes count (nu mber/volume)Ordered By: Rancho Matthew on 08-24-2023 RBC (Bld) [#/Vol] 4.27 10*6/uL 4.2-5.4 [facility] Blood hemoglobin measurement (mass/volume)Ordered By: Rancho Matthew on 08-24-2023 Hemoglobin (Bld) [Mass/Vol] 13.0 g/dL 12.0-15.0 [facility] Blood lymphocytes/100 leukoc ytesOrdered By: Rancho Matthew on 08-24-2023 Lymphocytes/100 WBC (Bld) 28.7 % 19-41 [facility] Blood monocytes/100 leukocyt esOrdered By: Rancho Matthew on 08-24-2023 Monocytes/100 WBC (Bld) 9.5 % 0-10 [facility] Blood platelet mean volumeOr dered By: Rancho Matthew on 08-24-2023 Platelet mean volume (Bld) [Entitic vol] 10.1 fL 6.2-12.0 [facility] Determination of erythrocyte mean corpuscular volume (MCV)Ordered By: Rancho Matthew on 08-24-2023 MCV (RBC) [Entitic vol] 97.2 fL 81-99 [facility] Hematocrit Auto (Bld) [Volum e fraction]Ordered By: Rancho Matthew on 08-24-2023 Hematocrit (Bld) [Volume fraction] 41.5 % 37-47 [facility] Laboratory - Chemistry and C hemistry - challengeOrdered By: Rancho Matthew on 08-24-2023 ALP [Catalytic activity/Vol] 64 U/L 45-117 [facility] ALT [Catalytic activity/Vol] 17 U/L 13-56 [facility] CO2 [Moles/Vol] 26.0 mmol/L 21.0-32.0 [facility] Globulin (S) [Mass/Vol] 4.6 g/dL 2.2-4.2 [facility] Urea nitrogen/Creatinine [Mass ratio] 14.8 mg/mg 10-20 [facility] Laboratory - Hematology and Cell countsOrdered By: Rancho Matthew on 08-24-2023 Erythrocyte distribution width (RBC) [Entitic vol] 49.6 fL 35.1-43.9 [facility] Erythrocyte distribution width (RBC) [Ratio] 13.9 % 11.6-14.6 [facility] Immature granulocytes/100 WBC (Bld) 1.800 % 0.0-0.9 [facility] Comment on above: IG% - Immature Granu locytes (promyelocytes, myelocytes and metamyelocytes) > 1% indicates that a LEFT SHIFT is Present. MCH (RBC) [Entitic mass] 30.4 pg 27.0-32.0 [facility] Nucleated RBC/100 WBC (Bld) [Ratio] 0 % 0-5 [facility] MCHC Auto (RBC) [Mass/Vol]Or dered By: Rancho Matthew on 08-24-2023 MCHC (RBC) [Mass/Vol] 31.3 g/dL 32-36 [facility] No Panel InformationOrdered By: Rancho Matthew on 08-24-2023 Estimated GFR (MDRD) Amer 54 mL/min >60 [facility] Comment on above: GFR Calc Estimated GFR (MDRD) Non-Af Amer 45 mL/min >60 [facility] Comment on above: Non- GFR Calc Thyroid Stimulating Hormone (TSH) 2.79 uIU/mL 0.358-3.74 [facility] Vitamin D 25-Hydroxy 21.0 ng/mL [facility] Comment on above: Vitamin D 25(OH) Sta tus Range Deficiency <20 ng/mL (50nmol/L) Insufficiency 20 - 30 ng/mL (50 - 75 nmol/L) Sufficiency 30 - 100 ng/mL (75 - 250 nmol/L) Toxicity >100 ng/mL (>250 nmol/L) Platelets bldOrdered By: Rancho Matthew on 08-24-2023 Platelets (Bld) [#/Vol] 338 10*3/uL 150-450 [facility] Serum or plasma albumin andrew urement (mass/volume)Ordered By: Rancho Matthew 08-24-2023 Albumin [Mass/Vol] 3.1 g/dL 3.2-5.0 [facility] Serum or plasma albumin/glob ulin mass ratioOrdered By: Rancho Matthew 08-24-2023 Albumin/Globulin [Mass ratio] 0.7 {ratio} 0.9-2.4 [facility] Serum or plasma calcium andrew urement (mass/volume)Ordered By: Rancho Matthew 08-24-2023 Calcium [Mass/Vol] 9.4 mg/dL 8.5-10.1 [facility] Serum or plasma cholesterol in HDL measurement (mass/volume)Ordered By: Rancho Matthew 08-24-2023 Cholesterol in HDL [Mass/Vol] 32 mg/dL >40 [facility] Comment on above: The drugs N-Acetylcy steine and Metamizole may falsely depress this assay. Reference Range HDL <40 mg/dL Low HDL Cholesterol HDL >or= 60 mg/dL High HDL Cholesterol Serum or plasma cholesterol in VLDL measurement (mass/volume)Ordered By: Rancho Matthew 08-24-2023 Cholesterol in VLDL [Mass/Vol] 40 mg/dL 5-40 [facility] Serum or plasma creatinine m easurement (mass/volume)Ordered By: Rancho Matthew 08-24-2023 Creatinine [Mass/Vol] 1.22 mg/dL 0.55-1.02 [facility] Comment on above: The validity of the calculated GFR & GFRAA in patients over 70 years has not been determined. Clinical correlation is essential. Serum or plasma low density lipoprotein (LDL) cholesterol measurement (mass/volume)Ordered By: Rancho Matthew 08-24-2023 Cholesterol in LDL [Mass/Vol] 152 mg/dL 0-130 [facility] Serum or plasma urea nitroge n measurement (mass/volume)Ordered By: Rancho Matthew on 08-24-2023 Urea nitrogen [Mass/Vol] 18 mg/dL 7-18 [facility] Thin prep Papanicolaou smear with manual screeningOrdered By: Rancho Matthew on 08-24-2023 Thin prep Papanicolaou smear with manual screening 15 U/L 15-37 [facility] Thin prep Papanicolaou smear with manual screening 8 5-15 [facility] Laboratory - Microbiology an d Antimicrobial susceptibilityOrdered By: Rancho Matthew on 06-28-2023 SARS-CoV-2 (COVID-19) RNA YASMIN+probe Ql (Unsp spec) SARS-CoV-2 (COVID 19) [facility] No Panel InformationOrdered By: Rancho Matthew on 06-28-2023 Influenza Types A,B Direct FA (ALO) [facility] RSV Ag EIAOrdered By: Rancho gale on 06-28-2023 RSV Ag Immune stain Ql (Tiss) [facility] Laboratory - Drug toxicology Ordered By: Regino Forrester on 06-18-2023 Amphetamines Ql (U) Negative <1000 ng/mL [facility] Benzodiazepines Ql (U) Negative < 200 ng/mL [facility] Cannabinoids Screen Ql (U) Negative < 50 ng/mL [facility] Cocaine Ql (U) Negative < 300 ng/mL [facility] Opiates Ql (U) Negative < 300 ng/mL [facility] No Panel InformationOrdered By: Regino Forrester on 06-18-2023 MDMA (Ecstasy) Screen Negative < 500 ng/mL [facility] Miscellaneous Test See comment [facility] Comment on above: [id number] 6+OXYCODONE-B UND (ng/mL) DRUG RESULT SCREEN CUTOFF____ Amphetamines,Urine Negative ng/mL 1000 Amphetamine test includes Amphetamine and Methamphetamine.Barbiturates Negative ng/mL 200Benzodiazepines Negative ng/mL 200Cannabinoid Negative ng/mL 20Cocaine (Metab) Negative ng/mL 300Opiates Negative ng/mL 300 Opiates test includes Codeine, Morphine, Hydromorphone, Hydrocodone. Oxycodone/Oxymorphone,Urine Negative ng/mL 300 Test includes Oxycodone and Oxymorphone. TESTING PERFORMED AT [facility]. ORIGINAL REPORT ON FILE IN LAB CONTAINS ADDITIONAL TEST SITE INFORMATION. Urine Barbiturates Screen Negative < 200 ng/mL [facility] Urine Drug Screen Comment [facility] Comment on above: CONFIRMATORY TESTING FOR ALL POSITIVE URINE DRUG SCREENRESULTS WILL ONLY BE SENT OUT UPON PHYSICIAN ORDER. VISTA Urine Drug Screen methods provide only preliminaryanalytical test results. A more specific alternate chemicalmethod must be used in order to obtain a confirmedanalytical result. Gas chromatography/mass spectrometery(GC/MS) is the preferred confirmatory method. Clinicalconsideration and professional judgement should be appliedto any drug of abuse test result, particularly whenpreliminary positive results are used. URINE TCA TESTING MUST BE ORDERED SEPARATELY. USE TESTMNEMONIC: [facility] Urine Methadone Screen Negative < 300 ng/mL [facility] Urine phencyclidine (PCP) de tectionOrdered By: Regino Forrester on 06-18-2023 Phencyclidine Ql (U) Negative < 25 ng/mL [facility] Absolute lymphocyte countOrd ered By: Rancho Matthew on 05-09-2023 Lymphocytes Auto (Unsp spec) [#/Vol] 1.78 10*3/uL 0.83-4.51 [facility] Basophil percentageOrdered B y: Rancho Matthew on 05-09-2023 Basophils/100 WBC (Bld) 0.7 % 0-1 [facility] Bilirubin [Mass/Vol] 0.30 mg/dL 0.20-1.00 [facility] Comment on above: For patients on eltr ombopag therapy, use of Dimension [place] TBIL is not recommended. Chloride [Moles/Vol] 109 mmol/L 98-107 [facility] Cholesterol [Mass/Vol] 229 mg/dL <200 [facility] Comment on above: <200 mg/dL Desirable 200-240 mg/dL Borderline >240 mg/dL High Risk Eosinophils/100 WBC (Bld) 1.1 % 0-5 [facility] Glucose [Mass/Vol] 113 mg/dL 74-106 [facility] Comment on above: Fasting Glucose resu lt from 100 to 125 mg/dL suggests IMPAIRED HOMEOSTASIS per A.D.A. criteria. Neutrophils (Bld) [#/Vol] 5.1 10*3/uL 2.0-7.7 [facility] Neutrophils/100 WBC (Bld) 67.5 % 47-70 [facility] Potassium [Moles/Vol] 4.0 mmol/L 3.5-5.1 [facility] Protein [Mass/Vol] 7.1 g/dL 6.4-8.2 [facility] Sodium [Moles/Vol] 141 mmol/L 136-145 [facility] Triglyceride [Mass/Vol] 274 mg/dL <199 [facility] Comment on above: The drugs N-Acetylcy steine and Metamizole may falsely depress this assay.Serum Triglycerides Reference Interval Normal <150 mg/dL Borderline high 150 - 199 mg/dL High 200 - 499 mg/dL Very High > or = 500 mg/dL WBC (Bld) [#/Vol] 7.5 10*3/uL 4.4-11.0 [facility] Blood erythrocytes count (nu mber/volume)Ordered By: Rancho Matthew on 05-09-2023 RBC (Bld) [#/Vol] 4.14 10*6/uL 4.2-5.4 [facility] Blood hemoglobin measurement (mass/volume)Ordered By: Rancho Matthew on 05-09-2023 Hemoglobin (Bld) [Mass/Vol] 12.8 g/dL 12.0-15.0 [facility] Blood lymphocytes/100 leukoc ytesOrdered By: Rancho Matthew on 05-09-2023 Lymphocytes/100 WBC (Bld) 23.7 % 19-41 [facility] Blood monocytes/100 leukocyt esOrdered By: Rancho Matthew on 05-09-2023 Monocytes/100 WBC (Bld) 6.5 % 0-10 [facility] Blood platelet mean volumeOr dered By: Rancho Matthew on 05-09-2023 Platelet mean volume (Bld) [Entitic vol] 9.9 fL 6.2-12.0 [facility] Determination of erythrocyte mean corpuscular volume (MCV)Ordered By: Rancho Matthew on 05-09-2023 MCV (RBC) [Entitic vol] 97.8 fL 81-99 [facility] Hematocrit Auto (Bld) [Volum e fraction]Ordered By: Rancho Nikos on 05-09-2023 Hematocrit (Bld) [Volume fraction] 40.5 % 37-47 [facility] Laboratory - Chemistry and C hemistry - challengeOrdered By: [facility] 05-09-2023 ALP [Catalytic activity/Vol] 56 U/L 45-117 [facility] ALT [Catalytic activity/Vol] 22 U/L 13-56 [facility] CO2 [Moles/Vol] 29.0 mmol/L 21.0-32.0 [facility] Globulin (S) [Mass/Vol] 3.7 g/dL 2.2-4.2 [facility] Urea nitrogen/Creatinine [Mass ratio] 29.1 mg/mg 10-20 [facility] Laboratory - Hematology and Cell countsOrdered By: Rancho Nikos on 05-09-2023 Erythrocyte distribution width (RBC) [Entitic vol] 47.3 fL 35.1-43.9 [facility] Erythrocyte distribution width (RBC) [Ratio] 13.2 % 11.6-14.6 [facility] Immature granulocytes/100 WBC (Bld) 0.500 % 0.0-0.9 [facility] Comment on above: IG% - Immature Granu locytes (promyelocytes, myelocytes and metamyelocytes) > 1% indicates that a LEFT SHIFT is Present. MCH (RBC) [Entitic mass] 30.9 pg 27.0-32.0 [facility] Nucleated RBC/100 WBC (Bld) [Ratio] 0 % 0-5 [facility] MCHC Auto (RBC) [Mass/Vol]Or dered By: Rancho Matthew on 05-09-2023 MCHC (RBC) [Mass/Vol] 31.6 g/dL 32-36 [facility] No Panel InformationOrdered By: Rancho Matthew on 05-09-2023 Estimated GFR (MDRD) Amer 69 mL/min >60 [facility] Comment on above: GFR Calc Estimated GFR (MDRD) Non-Af Amer 57 mL/min >60 [facility] Comment on above: Non- GFR Calc Thyroid Stimulating Hormone (TSH) 3.47 uIU/mL 0.358-3.74 [facility] Vitamin D 25-Hydroxy 18.6 ng/mL [facility] Comment on above: Vitamin D 25(OH) Sta tus Range Deficiency <20 ng/mL (50nmol/L) Insufficiency 20 - 30 ng/mL (50 - 75 nmol/L) Sufficiency 30 - 100 ng/mL (75 - 250 nmol/L) Toxicity >100 ng/mL (>250 nmol/L) Platelets bldOrdered By: Rancho Matthew on 05-09-2023 Platelets (Bld) [#/Vol] 240 10*3/uL 150-450 [facility] Serum or plasma albumin andrew urement (mass/volume)Ordered By: Rancho Matthew on 05-09-2023 Albumin [Mass/Vol] 3.4 g/dL 3.2-5.0 [facility] Serum or plasma albumin/glob ulin mass ratioOrdered By: Rancho Matthew on 05-09-2023 Albumin/Globulin [Mass ratio] 0.9 {ratio} 0.9-2.4 [facility] Serum or plasma calcium andrew urement (mass/volume)Ordered By: Rancho Matthew on 05-09-2023 Calcium [Mass/Vol] 8.8 mg/dL 8.5-10.1 [facility] Serum or plasma cholesterol in HDL measurement (mass/volume)Ordered By: Rancho Matthew on 05-09-2023 Cholesterol in HDL [Mass/Vol] 46 mg/dL >40 [facility] Comment on above: The drugs N-Acetylcy steine and Metamizole may falsely depress this assay. Reference Range HDL <40 mg/dL Low HDL Cholesterol HDL >or= 60 mg/dL High HDL Cholesterol Serum or plasma cholesterol in VLDL measurement (mass/volume)Ordered By: Rancho Matthew on 05-09-2023 Cholesterol in VLDL [Mass/Vol] 55 mg/dL 5-40 [facility] Serum or plasma creatinine m easurement (mass/volume)Ordered By: Rancho Matthew on 05-09-2023 Creatinine [Mass/Vol] 1.00 mg/dL 0.55-1.02 [facility] Comment on above: The validity of the calculated GFR & GFRAA in patients over 70 years has not been determined. Clinical correlation is essential. Serum or plasma low density lipoprotein (LDL) cholesterol measurement (mass/volume)Ordered By: Rancho Matthew on 05-09-2023 Cholesterol in LDL [Mass/Vol] 128 mg/dL 0-130 [facility] Serum or plasma urea nitroge n measurement (mass/volume)Ordered By: Rancho Matthew on 05-09-2023 Urea nitrogen [Mass/Vol] 29 mg/dL 7-18 [facility] Thin prep Papanicolaou smear with manual screeningOrdered By: Rancho Matthew on 05-09-2023 Thin prep Papanicolaou smear with manual screening 14 U/L 15-37 [facility] Thin prep Papanicolaou smear with manual screening 3 5-15 [facility] Absolute lymphocyte countOrd ered By: Rancho Matthew on 02-07-2023 Lymphocytes Auto (Unsp spec) [#/Vol] 1.72 10*3/uL 0.83-4.51 [facility] Basophil percentageOrdered B y: Rancho Matthew on 02-07-2023 Basophils/100 WBC (Bld) 0.9 % 0-1 [facility] Bilirubin [Mass/Vol] 0.40 mg/dL 0.20-1.00 [facility] Comment on above: For patients on eltr ombopag therapy, use of Dimension [place] TBIL is not recommended. Chloride [Moles/Vol] 108 mmol/L 98-107 [facility] Cholesterol [Mass/Vol] 233 mg/dL <200 [facility] Comment on above: <200 mg/dL Desirable 200-240 mg/dL Borderline >240 mg/dL High Risk Eosinophils/100 WBC (Bld) 1.6 % 0-5 [facility] Glucose [Mass/Vol] 88 mg/dL 74-106 [facility] Neutrophils (Bld) [#/Vol] 3.4 10*3/uL 2.0-7.7 [facility] Neutrophils/100 WBC (Bld) 60.1 % 47-70 [facility] Potassium [Moles/Vol] 4.1 mmol/L 3.5-5.1 [facility] Protein [Mass/Vol] 7.2 g/dL 6.4-8.2 [facility] Sodium [Moles/Vol] 139 mmol/L 136-145 [facility] Triglyceride [Mass/Vol] 145 mg/dL <199 [facility] Comment on above: The drugs N-Acetylcy steine and Metamizole may falsely depress this assay.Serum Triglycerides Reference Interval Normal <150 mg/dL Borderline high 150 - 199 mg/dL High 200 - 499 mg/dL Very High > or = 500 mg/dL WBC (Bld) [#/Vol] 5.7 10*3/uL 4.4-11.0 [facility] Blood erythrocytes count (nu mber/volume)Ordered By: Rancho Matthew on 02-07-2023 RBC (Bld) [#/Vol] 4.16 10*6/uL 4.2-5.4 [facility] Blood hemoglobin measurement (mass/volume)Ordered By: Rancho Matthew on 02-07-2023 Hemoglobin (Bld) [Mass/Vol] 12.9 g/dL 12.0-15.0 [facility] Blood lymphocytes/100 leukoc ytesOrdered By: Rancho Matthew on 02-07-2023 Lymphocytes/100 WBC (Bld) 30.4 % 19-41 [facility] Blood monocytes/100 leukocyt esOrdered By: Rancho Matthew on 02-07-2023 Monocytes/100 WBC (Bld) 6.5 % 0-10 [facility] Blood platelet mean volumeOr dered By: Rancho Matthew on 02-07-2023 Platelet mean volume (Bld) [Entitic vol] 9.6 fL 6.2-12.0 [facility] Determination of erythrocyte mean corpuscular volume (MCV)Ordered By: Rancho Matthew on 02-07-2023 MCV (RBC) [Entitic vol] 96.9 fL 81-99 [facility] Hematocrit Auto (Bld) [Volum e fraction]Ordered By: Rancho Matthew on 02-07-2023 Hematocrit (Bld) [Volume fraction] 40.3 % 37-47 [facility] Laboratory - Chemistry and C hemistry - challengeOrdered By: Rancho Matthew on 02-07-2023 ALP [Catalytic activity/Vol] 58 U/L 45-117 [facility] ALT [Catalytic activity/Vol] 18 U/L 13-56 [facility] CO2 [Moles/Vol] 27.0 mmol/L 21.0-32.0 [facility] Globulin (S) [Mass/Vol] 3.8 g/dL 2.2-4.2 [facility] Urea nitrogen/Creatinine [Mass ratio] 22.3 mg/mg 10-20 [facility] Laboratory - Hematology and Cell countsOrdered By: Rancho Matthew on 02-07-2023 Erythrocyte distribution width (RBC) [Entitic vol] 47.5 fL 35.1-43.9 [facility] Erythrocyte distribution width (RBC) [Ratio] 13.3 % 11.6-14.6 [facility] Immature granulocytes/100 WBC (Bld) 0.500 % 0.0-0.9 [facility] Comment on above: IG% - Immature Granu locytes (promyelocytes, myelocytes and metamyelocytes) > 1% indicates that a LEFT SHIFT is Present. MCH (RBC) [Entitic mass] 31.0 pg 27.0-32.0 [facility] Nucleated RBC/100 WBC (Bld) [Ratio] 0 % 0-5 [facility] MCHC Auto (RBC) [Mass/Vol]Or dered By: Rancho Matthew on 02-07-2023 MCHC (RBC) [Mass/Vol] 32.0 g/dL 32-36 [facility] No Panel InformationOrdered By: Rancho Matthew on 02-07-2023 Estimated GFR (MDRD) Amer 66 mL/min >60 [facility] Comment on above: GFR Calc Estimated GFR (MDRD) Non-Af Amer 55 mL/min >60 [facility] Comment on above: Non- GFR Calc Thyroid Stimulating Hormone (TSH) 3.51 uIU/mL 0.358-3.74 [facility] Vitamin D 25-Hydroxy 24.7 ng/mL [facility] Comment on above: Vitamin D 25(OH) Sta tus Range Deficiency <20 ng/mL (50nmol/L) Insufficiency 20 - 30 ng/mL (50 - 75 nmol/L) Sufficiency 30 - 100 ng/mL (75 - 250 nmol/L) Toxicity >100 ng/mL (>250 nmol/L) Platelets bldOrdered By: Rancho Matthew on 02-07-2023 Platelets (Bld) [#/Vol] 218 10*3/uL 150-450 [facility] Serum or plasma albumin andrew urement (mass/volume)Ordered By: Rancho Matthew on 02-07-2023 Albumin [Mass/Vol] 3.4 g/dL 3.2-5.0 [facility] Serum or plasma albumin/glob ulin mass ratioOrdered By: Rancho Matthew 02-07-2023 Albumin/Globulin [Mass ratio] 0.9 {ratio} 0.9-2.4 [facility] Serum or plasma calcium andrew urement (mass/volume)Ordered By: Rancho Matthew 02-07-2023 Calcium [Mass/Vol] 9.2 mg/dL 8.5-10.1 [facility] Serum or plasma cholesterol in HDL measurement (mass/volume)Ordered By: Rancho Matthew 02-07-2023 Cholesterol in HDL [Mass/Vol] 46 mg/dL >40 [facility] Comment on above: The drugs N-Acetylcy steine and Metamizole may falsely depress this assay. Reference Range HDL <40 mg/dL Low HDL Cholesterol HDL >or= 60 mg/dL High HDL Cholesterol Serum or plasma cholesterol in VLDL measurement (mass/volume)Ordered By: Rancho Matthew 02-07-2023 Cholesterol in VLDL [Mass/Vol] 29 mg/dL 5-40 [facility] Serum or plasma creatinine m easurement (mass/volume)Ordered By: Rancho Matthew 02-07-2023 Creatinine [Mass/Vol] 1.03 mg/dL 0.55-1.02 [facility] Comment on above: The validity of the calculated GFR & GFRAA in patients over 70 years has not been determined. Clinical correlation is essential. Serum or plasma low density lipoprotein (LDL) cholesterol measurement (mass/volume)Ordered By: Rancho Matthew 02-07-2023 Cholesterol in LDL [Mass/Vol] 158 mg/dL 0-130 [facility] Serum or plasma urea nitroge n measurement (mass/volume)Ordered By: Rancho Matthew on 02-07-2023 Urea nitrogen [Mass/Vol] 23 mg/dL 7-18 [facility] Thin prep Papanicolaou smear with manual screeningOrdered By: Rancho Matthew on 02-07-2023 Thin prep Papanicolaou smear with manual screening 19 U/L 15-37 [facility] Thin prep Papanicolaou smear with manual screening 4 5-15 [facility] Absolute lymphocyte countOrd ered By: Dr. Matthew on 10-25-2022 Lymphocytes Auto (Unsp spec) [#/Vol] 1.90 10*3/uL 0.83-4.51 [facility] Basophil percentageOrdered B y: Dr. Matthew on 10-25-2022 Basophils/100 WBC (Bld) 1.1 % 0-1 [facility] Bilirubin [Mass/Vol] 0.40 mg/dL 0.20-1.00 [facility] Comment on above: For patients on eltr ombopag therapy, use of Dimension [place] TBIL is not recommended. Chloride [Moles/Vol] 103 mmol/L 98-107 [facility] Cholesterol [Mass/Vol] 227 mg/dL <200 [facility] Comment on above: <200 mg/dL Desirable 200-240 mg/dL Borderline >240 mg/dL High Risk Eosinophils/100 WBC (Bld) 3.0 % 0-5 [facility] Glucose [Mass/Vol] 87 mg/dL 74-106 [facility] Neutrophils (Bld) [#/Vol] 2.8 10*3/uL 2.0-7.7 [facility] Neutrophils/100 WBC (Bld) 53.1 % 47-70 [facility] Potassium [Moles/Vol] 4.4 mmol/L 3.5-5.1 [facility] Protein [Mass/Vol] 7.1 g/dL 6.4-8.2 [facility] Sodium [Moles/Vol] 138 mmol/L 136-145 [facility] Triglyceride [Mass/Vol] 236 mg/dL <199 [facility] Comment on above: The drugs N-Acetylcy steine and Metamizole may falsely depress this assay.Serum Triglycerides Reference Interval Normal <150 mg/dL Borderline high 150 - 199 mg/dL High 200 - 499 mg/dL Very High > or = 500 mg/dL WBC (Bld) [#/Vol] 5.4 10*3/uL 4.4-11.0 [facility] Blood erythrocytes count (nu mber/volume)Ordered By: Dr. Matthew on 10-25-2022 RBC (Bld) [#/Vol] 4.51 10*6/uL 4.2-5.4 [facility] Blood hemoglobin measurement (mass/volume)Ordered By: Dr. Matthew on 10-25-2022 Hemoglobin (Bld) [Mass/Vol] 13.5 g/dL 12.0-15.0 [facility] Blood lymphocytes/100 leukoc ytesOrdered By: Dr. Matthew on 10-25-2022 Lymphocytes/100 WBC (Bld) 35.5 % 19-41 [facility] Blood monocytes/100 leukocyt esOrdered By: Dr. Matthew on 10-25-2022 Monocytes/100 WBC (Bld) 6.9 % 0-10 [facility] Blood platelet mean volumeOr dered By: Dr. Matthew on 10-25-2022 Platelet mean volume (Bld) [Entitic vol] 10.6 fL 6.2-12.0 [facility] Determination of erythrocyte mean corpuscular volume (MCV)Ordered By: Dr. Matthew on 10-25-2022 MCV (RBC) [Entitic vol] 95.1 fL 81-99 [facility] Hematocrit Auto (Bld) [Volum e fraction]Ordered By: Dr. Matthew on 10-25-2022 Hematocrit (Bld) [Volume fraction] 42.9 % 37-47 [facility] Laboratory - Chemistry and C hemistry - challengeOrdered By: Dr. Matthew on 10-25-2022 ALP [Catalytic activity/Vol] 58 U/L 45-117 [facility] ALT [Catalytic activity/Vol] 20 U/L 13-56 [facility] CO2 [Moles/Vol] 27.0 mmol/L 21.0-32.0 [facility] Globulin (S) [Mass/Vol] 3.6 g/dL 2.2-4.2 [facility] Urea nitrogen/Creatinine [Mass ratio] 31.9 mg/mg 10-20 [facility] Laboratory - Hematology and Cell countsOrdered By: Dr. Matthew on 10-25-2022 Erythrocyte distribution width (RBC) [Entitic vol] 47.6 fL 35.1-43.9 [facility] Erythrocyte distribution width (RBC) [Ratio] 13.6 % 11.6-14.6 [facility] Immature granulocytes/100 WBC (Bld) 0.400 % 0.0-0.9 [facility] Comment on above: IG% - Immature Granu locytes (promyelocytes, myelocytes and metamyelocytes) > 1% indicates that a LEFT SHIFT is Present. MCH (RBC) [Entitic mass] 29.9 pg 27.0-32.0 [facility] Nucleated RBC/100 WBC (Bld) [Ratio] 0 % 0-5 [facility] MCHC Auto (RBC) [Mass/Vol]Or dered By: Dr. Matthew on 10-25-2022 MCHC (RBC) [Mass/Vol] 31.5 g/dL 32-36 [facility] No Panel InformationOrdered By: Dr. Matthew on 10-25-2022 Estimated GFR (MDRD) Amer 77 mL/min >60 [facility] Comment on above: GFR Calc Estimated GFR (MDRD) Non-Af Amer 63 mL/min >60 [facility] Comment on above: Non- GFR Calc Thyroid Stimulating Hormone (TSH) 3.17 uIU/mL 0.358-3.74 [facility] Vitamin D 25-Hydroxy 14.6 ng/mL [facility] Comment on above: Vitamin D 25(OH) Sta tus Range Deficiency <20 ng/mL (50nmol/L) Insufficiency 20 - 30 ng/mL (50 - 75 nmol/L) Sufficiency 30 - 100 ng/mL (75 - 250 nmol/L) Toxicity >100 ng/mL (>250 nmol/L) Platelets bldOrdered By: Dr. Matthew on 10-25-2022 Platelets (Bld) [#/Vol] 260 10*3/uL 150-450 [facility] Serum or plasma albumin andrew urement (mass/volume)Ordered By: Dr. Matthew on 10-25-2022 Albumin [Mass/Vol] 3.5 g/dL 3.2-5.0 [facility] Serum or plasma albumin/glob ulin mass ratioOrdered By: Dr. Matthew on 10-25-2022 Albumin/Globulin [Mass ratio] 1.0 {ratio} 0.9-2.4 [facility] Serum or plasma calcium andrew urement (mass/volume)Ordered By: Dr. Matthew on 10-25-2022 Calcium [Mass/Vol] 9.0 mg/dL 8.5-10.1 [facility] Serum or plasma cholesterol in HDL measurement (mass/volume)Ordered By: Dr. Matthew on 10-25-2022 Cholesterol in HDL [Mass/Vol] 39 mg/dL >40 [facility] Comment on above: The drugs N-Acetylcy steine and Metamizole may falsely depress this assay. Reference Range HDL <40 mg/dL Low HDL Cholesterol HDL >or= 60 mg/dL High HDL Cholesterol Serum or plasma cholesterol in VLDL measurement (mass/volume)Ordered By: Dr. Matthew on 10-25-2022 Cholesterol in VLDL [Mass/Vol] 47 mg/dL 5-40 [facility] Serum or plasma creatinine m easurement (mass/volume)Ordered By: Dr. Matthew on 10-25-2022 Creatinine [Mass/Vol] 0.91 mg/dL 0.55-1.02 [facility] Comment on above: The validity of the calculated GFR & GFRAA in patients over 70 years has not been determined. Clinical correlation is essential. Serum or plasma low density lipoprotein (LDL) cholesterol measurement (mass/volume)Ordered By: Dr. Matthew on 10-25-2022 Cholesterol in LDL [Mass/Vol] 141 mg/dL 0-130 [facility] Serum or plasma urea nitroge n measurement (mass/volume)Ordered By: Dr. Matthew on 10-25-2022 Urea nitrogen [Mass/Vol] 29 mg/dL 7-18 [facility] Thin prep Papanicolaou smear with manual screeningOrdered By: Dr. Matthew on 10-25-2022 Thin prep Papanicolaou smear with manual screening 19 U/L 15-37 [facility] Thin prep Papanicolaou smear with manual screening 8 5-15 [facility] [facility] Absolute lymphocyte countOrd ered By: Dr. Matthew on 07-26-2022 Lymphocytes Auto (Unsp spec) [#/Vol] 2.12 10*3/uL 0.83-4.51 [facility] Basophil percentageOrdered B y: Dr. Matthew on 07-26-2022 Basophils/100 WBC (Bld) 0.9 % 0-1 [facility] Bilirubin [Mass/Vol] 0.30 mg/dL 0.20-1.00 [facility] Comment on above: For patients on eltr ombopag therapy, use of Dimension [place] TBIL is not recommended. Chloride [Moles/Vol] 107 mmol/L 98-107 [facility] Cholesterol [Mass/Vol] 216 mg/dL <200 [facility] Comment on above: <200 mg/dL Desirable 200-240 mg/dL Borderline >240 mg/dL High Risk Eosinophils/100 WBC (Bld) 2.0 % 0-5 [facility] Glucose [Mass/Vol] 87 mg/dL 74-106 [facility] Neutrophils (Bld) [#/Vol] 3.1 10*3/uL 2.0-7.7 [facility] Neutrophils/100 WBC (Bld) 52.9 % 47-70 [facility] Potassium [Moles/Vol] 4.0 mmol/L 3.5-5.1 [facility] Protein [Mass/Vol] 7.6 g/dL 6.4-8.2 [facility] Sodium [Moles/Vol] 140 mmol/L 136-145 [facility] Triglyceride [Mass/Vol] 223 mg/dL <199 [facility] Comment on above: The drugs N-Acetylcy steine and Metamizole may falsely depress this assay.Serum Triglycerides Reference Interval Normal <150 mg/dL Borderline high 150 - 199 mg/dL High 200 - 499 mg/dL Very High > or = 500 mg/dL WBC (Bld) [#/Vol] 5.9 10*3/uL 4.4-11.0 [facility] Blood erythrocytes count (nu mber/volume)Ordered By: Dr. Matthew on 07-26-2022 RBC (Bld) [#/Vol] 4.53 10*6/uL 4.2-5.4 [facility] Blood hemoglobin measurement (mass/volume)Ordered By: Dr. Matthew on 07-26-2022 Hemoglobin (Bld) [Mass/Vol] 13.9 g/dL 12.0-15.0 [facility] Blood lymphocytes/100 leukoc ytesOrdered By: Dr. Matthew on 07-26-2022 Lymphocytes/100 WBC (Bld) 36.1 % 19-41 [facility] Blood monocytes/100 leukocyt esOrdered By: Dr. Matthew on 07-26-2022 Monocytes/100 WBC (Bld) 7.8 % 0-10 [facility] Blood platelet mean volumeOr dered By: Dr. Matthew on 07-26-2022 Platelet mean volume (Bld) [Entitic vol] 11.1 fL 6.2-12.0 [facility] Determination of erythrocyte mean corpuscular volume (MCV)Ordered By: Dr. Matthew on 07-26-2022 MCV (RBC) [Entitic vol] 92.7 fL 81-99 [facility] Hematocrit Auto (Bld) [Volum e fraction]Ordered By: Dr. Matthew on 07-26-2022 Hematocrit (Bld) [Volume fraction] 42.0 % 37-47 [facility] Laboratory - Chemistry and C hemistry - challengeOrdered By: Dr. Matthew on 07-26-2022 ALP [Catalytic activity/Vol] 62 U/L 45-117 [facility] ALT [Catalytic activity/Vol] 20 U/L 13-56 [facility] CO2 [Moles/Vol] 26.0 mmol/L 21.0-32.0 [facility] Globulin (S) [Mass/Vol] 4.0 g/dL 2.2-4.2 [facility] Urea nitrogen/Creatinine [Mass ratio] 27.6 mg/mg 10-20 [facility] Laboratory - Hematology and Cell countsOrdered By: Dr. Matthew on 07-26-2022 Erythrocyte distribution width (RBC) [Entitic vol] 43.9 fL 35.1-43.9 [facility] Erythrocyte distribution width (RBC) [Ratio] 12.8 % 11.6-14.6 [facility] Immature granulocytes/100 WBC (Bld) 0.300 % 0.0-0.9 [facility] Comment on above: IG% - Immature Granu locytes (promyelocytes, myelocytes and metamyelocytes) > 1% indicates that a LEFT SHIFT is Present. MCH (RBC) [Entitic mass] 30.7 pg 27.0-32.0 [facility] Nucleated RBC/100 WBC (Bld) [Ratio] 0 % 0-5 [facility] MCHC Auto (RBC) [Mass/Vol]Or dered By: Dr. Matthew on 07-26-2022 MCHC (RBC) [Mass/Vol] 33.1 g/dL 32-36 [facility] No Panel InformationOrdered By: Dr. Matthew on 07-26-2022 Estimated GFR (MDRD) Amer 74 mL/min >60 [facility] Comment on above: GFR Calc Estimated GFR (MDRD) Non-Af Amer 61 mL/min >60 [facility] Comment on above: Non- GFR Calc Thyroid Stimulating Hormone (TSH) 2.98 uIU/mL 0.358-3.74 [facility] Vitamin D 25-Hydroxy 17.1 ng/mL [facility] Comment on above: Vitamin D 25(OH) Sta tus Range Deficiency <20 ng/mL (50nmol/L) Insufficiency 20 - 30 ng/mL (50 - 75 nmol/L) Sufficiency 30 - 100 ng/mL (75 - 250 nmol/L) Toxicity >100 ng/mL (>250 nmol/L) Platelets bldOrdered By: Dr. Matthew on 07-26-2022 Platelets (Bld) [#/Vol] 252 10*3/uL 150-450 [facility] Serum or plasma albumin andrew urement (mass/volume)Ordered By: Dr. Matthew on 07-26-2022 Albumin [Mass/Vol] 3.6 g/dL 3.2-5.0 [facility] Serum or plasma albumin/glob ulin mass ratioOrdered By: Dr. Matthew on 07-26-2022 Albumin/Globulin [Mass ratio] 0.9 {ratio} 0.9-2.4 [facility] Serum or plasma calcium andrew urement (mass/volume)Ordered By: Dr. Matthew on 07-26-2022 Calcium [Mass/Vol] 9.4 mg/dL 8.5-10.1 [facility] Serum or plasma cholesterol in HDL measurement (mass/volume)Ordered By: Dr. Matthew on 07-26-2022 Cholesterol in HDL [Mass/Vol] 39 mg/dL >40 [facility] Comment on above: The drugs N-Acetylcy steine and Metamizole may falsely depress this assay. Reference Range HDL <40 mg/dL Low HDL Cholesterol HDL >or= 60 mg/dL High HDL Cholesterol Serum or plasma cholesterol in VLDL measurement (mass/volume)Ordered By: Dr. Matthew on 07-26-2022 Cholesterol in VLDL [Mass/Vol] 45 mg/dL 5-40 [facility] Serum or plasma creatinine m easurement (mass/volume)Ordered By: Dr. Matthew on 07-26-2022 Creatinine [Mass/Vol] 0.94 mg/dL 0.55-1.02 [facility] Comment on above: The validity of the calculated GFR & GFRAA in patients over 70 years has not been determined. Clinical correlation is essential. Serum or plasma low density lipoprotein (LDL) cholesterol measurement (mass/volume)Ordered By: Dr. Matthew on 07-26-2022 Cholesterol in LDL [Mass/Vol] 132 mg/dL 0-130 [facility] Serum or plasma urea nitroge n measurement (mass/volume)Ordered By: Dr. Matthew on 07-26-2022 Urea nitrogen [Mass/Vol] 26 mg/dL 7-18 [facility] Thin prep Papanicolaou smear with manual screeningOrdered By: Dr. Matthew on 07-26-2022 Thin prep Papanicolaou smear with manual screening 20 U/L 15-37 [facility] Thin prep Papanicolaou smear with manual screening 7 5-15 [facility] Absolute lymphocyte counton 04-18-2022 Lymphocytes Auto (Unsp spec) [#/Vol] 1.94 10*3/uL 0.83-4.51 [facility] Work Phone: Basophil percentageon 2021 Basophils/100 WBC (Bld) 0.9 % 0-1 [facility] Work Phone: Bilirubin [Mass/Vol] 0.30 mg/dL 0.20-1.00 [facility] Work Phone: Comment on above: For patients on eltr ombopag therapy, use of Dimension [place] TBIL is not recommended. Chloride [Moles/Vol] 107 mmol/L 98-107 [facility] Work Phone: [phone] Cholesterol [Mass/Vol] 226 mg/dL <200 [facility] Work Phone: Comment on above: <200 mg/dL Desirable 200-240 mg/dL Borderline >240 mg/dL High Risk Eosinophils/100 WBC (Bld) 2.8 % 0-5 [facility] Work Phone: Glucose [Mass/Vol] 96 mg/dL 74-106 [facility] Work Phone: Neutrophils (Bld) [#/Vol] 3.0 10*3/uL 2.0-7.7 [facility] Work Phone: Neutrophils/100 WBC (Bld) 52.3 % 47-70 [facility] Work Phone: Potassium [Moles/Vol] 4.4 mmol/L 3.5-5.1 [facility] Work Phone: [phone] Protein [Mass/Vol] 7.2 g/dL 6.4-8.2 [facility] Work Phone: Sodium [Moles/Vol] 141 mmol/L 136-145 [facility] Work Phone: Triglyceride [Mass/Vol] 231 mg/dL <199 [facility] Work Phone: Comment on above: The drugs N-Acetylcy steine and Metamizole may falsely depress this assay.Serum Triglycerides Reference Interval Normal <150 mg/dL Borderline high 150 - 199 mg/dL High 200 - 499 mg/dL Very High > or = 500 mg/dL WBC (Bld) [#/Vol] 5.7 10*3/uL 4.4-11.0 [facility] Work Phone: Blood erythrocytes count (nu mber/volume)on 04-18-2022 RBC (Bld) [#/Vol] 4.21 10*6/uL 4.2-5.4 [facility] Work Phone: Blood hemoglobin measurement (mass/volume)on 04-18-2022 Hemoglobin (Bld) [Mass/Vol] 13.0 g/dL 12.0-15.0 [facility] Work Phone: Blood lymphocytes/100 leukoc yteson 04-18-2022 Lymphocytes/100 WBC (Bld) 34.2 % 19-41 [facility] Work Phone: Blood monocytes/100 leukocyt eson 04-18-2022 Monocytes/100 WBC (Bld) 9.3 % 0-10 [facility] Work Phone: Blood platelet mean volumeon 04-18-2022 Platelet mean volume (Bld) [Entitic vol] 10.3 fL 6.2-12.0 [facility] Work Phone: Determination of erythrocyte mean corpuscular volume (MCV)on 04-18-2022 MCV (RBC) [Entitic vol] 95.0 fL 81-99 [facility] Work Phone: Hematocrit Auto (Bld) [Volum e fraction]on 04-18-2022 Hematocrit (Bld) [Volume fraction] 40.0 % 37-47 [facility] Work Phone: Laboratory - Chemistry and C hemistry - challengeon 04-18-2022 ALP [Catalytic activity/Vol] 59 U/L 45-117 [facility] Work Phone: ALT [Catalytic activity/Vol] 21 U/L 13-56 [facility] Work Phone: CO2 [Moles/Vol] 28.0 mmol/L 21.0-32.0 [facility] Work Phone: Globulin (S) [Mass/Vol] 3.9 g/dL 2.2-4.2 [facility] Work Phone: Urea nitrogen/Creatinine [Mass ratio] 27.8 mg/mg 10-20 [facility] Work Phone: Laboratory - Hematology and Cell countson 04-18-2022 Erythrocyte distribution width (RBC) [Entitic vol] 46.3 fL 35.1-43.9 [facility] Work Phone: Erythrocyte distribution width (RBC) [Ratio] 13.3 % 11.6-14.6 [facility] Work Phone: Immature granulocytes/100 WBC (Bld) 0.500 % 0.0-0.9 [facility] Work Phone: Comment on above: IG% - Immature Granu locytes (promyelocytes, myelocytes and metamyelocytes) > 1% indicates that a LEFT SHIFT is Present. MCH (RBC) [Entitic mass] 30.9 pg 27.0-32.0 [facility] Work Phone: Nucleated RBC/100 WBC (Bld) [Ratio] 0 % 0-5 [facility] Work Phone: MCHC Auto (RBC) [Mass/Vol]on 04-18-2022 MCHC (RBC) [Mass/Vol] 32.5 g/dL 32-36 [facility] Work Phone: No Panel Informationon 04-18 Estimated GFR (MDRD) Amer 74 mL/min >60 [facility] Work Phone: Comment on above: GFR Calc Estimated GFR (MDRD) Non-Af Amer 61 mL/min >60 [facility] Work Phone: Comment on above: Non- GFR Calc Thyroid Stimulating Hormone (TSH) 2.32 uIU/mL 0.358-3.74 [facility] Work Phone: Vitamin D 25-Hydroxy 22.8 ng/mL [facility] Work Phone: Comment on above: Vitamin D 25(OH) Sta tus Range Deficiency <20 ng/mL (50nmol/L) Insufficiency 20 - 30 ng/mL (50 - 75 nmol/L) Sufficiency 30 - 100 ng/mL (75 - 250 nmol/L) Toxicity >100 ng/mL (>250 nmol/L) Platelets bldon 04-18-2022 Platelets (Bld) [#/Vol] 233 10*3/uL 150-450 [facility] Work Phone: Serum or plasma albumin andrew urement (mass/volume)on 04-18-2022 Albumin [Mass/Vol] 3.3 g/dL 3.2-5.0 [facility] Work Phone: Serum or plasma albumin/glob ulin mass ratioon 04-18-2022 Albumin/Globulin [Mass ratio] 0.8 {ratio} 0.9-2.4 [facility] Work Phone: Serum or plasma calcium andrew urement (mass/volume)on 04-18-2022 Calcium [Mass/Vol] 9.2 mg/dL 8.5-10.1 [facility] Work Phone: Serum or plasma cholesterol in HDL measurement (mass/volume)on 04-18-2022 Cholesterol in HDL [Mass/Vol] 42 mg/dL >40 [facility] Work Phone: Comment on above: The drugs N-Acetylcy steine and Metamizole may falsely depress this assay. Reference Range HDL <40 mg/dL Low HDL Cholesterol HDL >or= 60 mg/dL High HDL Cholesterol Serum or plasma cholesterol in VLDL measurement (mass/volume)on 04-18-2022 Cholesterol in VLDL [Mass/Vol] 46 mg/dL 5-40 [facility] Work Phone: Serum or plasma creatinine m easurement (mass/volume)on 04-18-2022 Creatinine [Mass/Vol] 0.93 mg/dL 0.55-1.02 [facility] Work Phone: Comment on above: The validity of the calculated GFR & GFRAA in patients over 70 years has not been determined. Clinical correlation is essential. Serum or plasma low density lipoprotein (LDL) cholesterol measurement (mass/volume)on 04-18-2022 Cholesterol in LDL [Mass/Vol] 138 mg/dL 0-130 [facility] Work Phone: Serum or plasma urea nitroge n measurement (mass/volume)on 04-18-2022 Urea nitrogen [Mass/Vol] 26 mg/dL 7-18 [facility] Work Phone: Thin prep Papanicolaou smear with manual screeningon 04-18-2022 Thin prep Papanicolaou smear with manual screening 14 U/L 15-37 [facility] Work Phone: Thin prep Papanicolaou smear with manual screening 6 5-15 [facility] Work Phone: Laboratory - Microbiology an d Antimicrobial susceptibilityon 04-03-2022 SARS-CoV-2 (COVID-19) RNA YASMIN+probe Ql (Unsp spec) Not detected Not Detect [facility] Work Phone: Comment on above: Normal Reference Ran ge: Not DetectedMethod:(RT-PCR) real-time reverse transcriptase PCRLuminex Mail.[employer] Instrument*The Food and Drug Administration (FDA) has issued an Emergency Use Authorization (EAU) for the LEANNE SARS-CoV-2 Assay for the rapid detection of the virus that causes COVID-19. This test has been validated, but the FDAs independent review of this validation is pending.*Negative results do not preclude infection and should not be used as the sole basis for treatment or patient management. Optimum specimen types and timing for peak viral levels during infections caused by SARS-CoV-2 have not been determined. Collection of multiple specimens from the same patient may be necessary to detect the virus. The possibility of a false negative result should be considered if the patient has clinical presentation or has had recent exposure. Absolute lymphocyte counton 01-18-2022 Lymphocytes Auto (Unsp spec) [#/Vol] 2.09 10*3/uL 0.83-4.51 [facility] Work Phone: Basophil percentageon 2021 Basophils/100 WBC (Bld) 0.7 % 0-1 [facility] Work Phone: Bilirubin [Mass/Vol] 0.20 mg/dL 0.20-1.00 [facility] Work Phone: Comment on above: For patients on eltr ombopag therapy, use of Dimension [place] TBIL is not recommended. Chloride [Moles/Vol] 104 mmol/L 98-107 [facility] Work Phone: Cholesterol [Mass/Vol] 220 mg/dL <200 [facility] Work [place]: Comment on above: <200 mg/dL Desirable 200-240 mg/dL Borderline >240 mg/dL High Risk Eosinophils/100 WBC (Bld) 2.5 % 0-5 [facility] Work Phone: Glucose [Mass/Vol] 100 mg/dL 74-106 [facility] Work Phone: Comment on above: Fasting Glucose resu lt from 100 to 125 mg/dL suggests IMPAIRED HOMEOSTASIS per A.D.A. criteria. Neutrophils (Bld) [#/Vol] 3.9 10*3/uL 2.0-7.7 [facility] Work Phone: Neutrophils/100 WBC (Bld) 57.3 % 47-70 [facility] Work Phone: Potassium [Moles/Vol] 4.2 mmol/L 3.5-5.1 [facility] Work Phone: Comment on above: Slight Hemolysis, Re sult may be falsely increased. Protein [Mass/Vol] 6.9 g/dL 6.4-8.2 [facility] Work Phone: Sodium [Moles/Vol] 138 mmol/L 136-145 [facility] Work Phone: Triglyceride [Mass/Vol] 448 mg/dL <199 [facility] Work Phone: Comment on above: The drugs N-Acetylcy steine and Metamizole may falsely depress this assay. TRIGLYCERIDE IS GREATER THAN 400 mg/dL. LDL RESULT IS INVALID AND WILL NOT BE REPORTED.Serum Triglycerides Reference Interval Normal <150 mg/dL Borderline high 150 - 199 mg/dL High 200 - 499 mg/dL Very High > or = 500 mg/dL WBC (Bld) [#/Vol] 6.9 10*3/uL 4.4-11.0 [facility] Work Phone: Blood erythrocytes count (nu mber/volume)on 01-18-2022 RBC (Bld) [#/Vol] 4.01 10*6/uL 4.2-5.4 [facility] Work Phone: Blood hemoglobin measurement (mass/volume)on 01-18-2022 Hemoglobin (Bld) [Mass/Vol] 12.4 g/dL 12.0-15.0 [facility] Work Phone: Blood lymphocytes/100 leukoc yteson 01-18-2022 Lymphocytes/100 WBC (Bld) 30.5 % 19-41 [facility] Work Phone: Blood monocytes/100 leukocyt eson 01-18-2022 Monocytes/100 WBC (Bld) 8.3 % 0-10 [facility] Work Phone: Blood platelet mean volumeon 01-18-2022 Platelet mean volume (Bld) [Entitic vol] 10.4 fL 6.2-12.0 [facility] Work Phone: Determination of erythrocyte mean corpuscular volume (MCV)on 01-18-2022 MCV (RBC) [Entitic vol] 96.8 fL 81-99 [facility] Work Phone: Hematocrit Auto (Bld) [Volum e fraction]on 01-18-2022 Hematocrit (Bld) [Volume fraction] 38.8 % 37-47 [facility] Work Phone: Laboratory - Chemistry and C hemistry - challengeon 01-18-2022 ALP [Catalytic activity/Vol] 60 U/L 45-117 [facility] Work Phone: ALT [Catalytic activity/Vol] 23 U/L 13-56 [facility] Work Phone: CO2 [Moles/Vol] 32.0 mmol/L 21.0-32.0 [facility] Work Phone: Globulin (S) [Mass/Vol] 3.6 g/dL 2.2-4.2 [facility] Work Phone: Urea nitrogen/Creatinine [Mass ratio] 27.2 mg/mg 10-20 [facility] Work Phone: Laboratory - Hematology and Cell countson 01-18-2022 Erythrocyte distribution width (RBC) [Entitic vol] 47.0 fL 35.1-43.9 [facility] Work Phone: Erythrocyte distribution width (RBC) [Ratio] 13.2 % 11.6-14.6 [facility] Work Phone: Immature granulocytes/100 WBC (Bld) 0.700 % 0.0-0.9 [facility] Work Phone: Comment on above: IG% - Immature Granu locytes (promyelocytes, myelocytes and metamyelocytes) > 1% indicates that a LEFT SHIFT is Present. MCH (RBC) [Entitic mass] 30.9 pg 27.0-32.0 [facility] Work Phone: Nucleated RBC/100 WBC (Bld) [Ratio] 0 % 0-5 [facility] Work Phone: MCHC Auto (RBC) [Mass/Vol]on 01-18-2022 MCHC (RBC) [Mass/Vol] 32.0 g/dL 32-36 [facility] Work Phone: No Panel Informationon 01-18 Estimated GFR (MDRD) Amer 66 mL/min >60 [facility] Work Phone: Comment on above: GFR Calc Estimated GFR (MDRD) Non-Af Amer 55 mL/min >60 [facility] Work Phone: Comment on above: Non- GFR Calc Thyroid Stimulating Hormone (TSH) 4.59 uIU/mL 0.358-3.74 [facility] Work Phone: Vitamin D 25-Hydroxy 19.2 ng/mL [facility] Work Phone: Comment on above: Vitamin D 25(OH) Sta tus Range Deficiency <20 ng/mL (50nmol/L) Insufficiency 20 - 30 ng/mL (50 - 75 nmol/L) Sufficiency 30 - 100 ng/mL (75 - 250 nmol/L) Toxicity >100 ng/mL (>250 nmol/L) Platelets bldon 01-18-2022 Platelets (Bld) [#/Vol] 268 10*3/uL 150-450 [facility] Work Phone: Serum or plasma albumin andrew urement (mass/volume)on 01-18-2022 Albumin [Mass/Vol] 3.3 g/dL 3.2-5.0 [facility] Work Phone: Serum or plasma albumin/glob ulin mass ratioon 01-18-2022 Albumin/Globulin [Mass ratio] 0.9 {ratio} 0.9-2.4 [facility] Work Phone: Serum or plasma calcium andrew urement (mass/volume)on 01-18-2022 Calcium [Mass/Vol] 8.6 mg/dL 8.5-10.1 [facility] Work Phone: Serum or plasma cholesterol in HDL measurement (mass/volume)on 01-18-2022 Cholesterol in HDL [Mass/Vol] 34 mg/dL >40 [facility] Work Phone: Comment on above: The drugs N-Acetylcy steine and Metamizole may falsely depress this assay. Reference Range HDL <40 mg/dL Low HDL Cholesterol HDL >or= 60 mg/dL High HDL Cholesterol Serum or plasma cholesterol in VLDL measurement (mass/volume)on 01-18-2022 Cholesterol in VLDL [Mass/Vol] [facility] Work Phone: Comment on above: Test not performed Serum or plasma creatinine m easurement (mass/volume)on 01-18-2022 Creatinine [Mass/Vol] 1.03 mg/dL 0.55-1.02 [facility] Work Phone: Comment on above: The validity of the calculated GFR & GFRAA in patients over 70 years has not been determined. Clinical correlation is essential. Serum or plasma low density lipoprotein (LDL) cholesterol measurement (mass/volume)on 01-18-2022 Cholesterol in LDL [Mass/Vol] [facility] Work Phone: Comment on above: Test not performed Serum or plasma urea nitroge n measurement (mass/volume)on 01-18-2022 Urea nitrogen [Mass/Vol] 28 mg/dL 7-18 [facility] Work Phone: Thin prep Papanicolaou smear with manual screeningon 01-18-2022 Thin prep Papanicolaou smear with manual screening 18 U/L 15-37 [facility] Work Phone: Comment on above: Slight Hemolysis, Re sult may be falsely increased. Thin prep Papanicolaou smear with manual screening 2 5-15 [facility] Work Phone: Gram stain for investigation of transfusion reactionon 11-11-2021 Microscopic observation Gram stain Nom (Unsp spec) [facility] Work Phone: No Panel Informationon 11-11 Methicillin-Resist S.aureus DNA PCR Negative Negative [facility] Work Phone: Staphylococcus aureus DNA de tection by probe and target amplification methodon 11-11-2021 S. aureus DNA YASMIN+probe Ql (Unsp spec) Negative Negative [facility] Work Phone: No Panel Informationon 10-20 [facility]iscellaneous Test [facility] Comment on above: Scanned image report available in EMR Absolute lymphocyte counton 10-19-2021 Lymphocytes Auto (Unsp spec) [#/Vol] 2.08 10*3/uL 0.83-4.51 [facility] Work Phone: Basophil percentageon 2021 Basophils/100 WBC (Bld) 0.8 % 0-1 [facility] Work Phone: Bilirubin [Mass/Vol] 0.20 mg/dL 0.20-1.00 [facility] Work Phone: Comment on above: For patients on eltr ombopag therapy, use of Dimension [place] TBIL is not recommended. Chloride [Moles/Vol] 107 mmol/L 98-107 [facility] Work Phone: Cholesterol [Mass/Vol] 230 mg/dL <200 [facility] Work Phone: Comment on above: <200 mg/dL Desirable 200-240 mg/dL Borderline >240 mg/dL High Risk Eosinophils/100 WBC (Bld) 2.1 % 0-5 [facility] Work Phone: Glucose [Mass/Vol] 87 mg/dL 74-106 [facility] Work Phone: Neutrophils (Bld) [#/Vol] 5.7 10*3/uL 2.0-7.7 [facility] Work Phone: Neutrophils/100 WBC (Bld) 65.7 % 47-70 [facility] Work Phone: Potassium [Moles/Vol] 4.2 mmol/L 3.5-5.1 [facility] Work Phone: [phone] Protein [Mass/Vol] 7.4 g/dL 6.4-8.2 [facility] Work Phone: Sodium [Moles/Vol] 140 mmol/L 136-145 [facility] Work Phone: Triglyceride [Mass/Vol] 219 mg/dL [facility] Work Phone: Comment on above: The drugs N-Acetylcy steine and Metamizole may falsely depress this assay.Serum Triglycerides Reference Interval Normal <150 mg/dL Borderline high 150 - 199 mg/dL High 200 - 499 mg/dL Very High > or = 500 mg/dL WBC (Bld) [#/Vol] 8.6 10*3/uL 4.4-11.0 [facility] Work Phone: Blood erythrocytes count (nu mber/volume)on 10-19-2021 RBC (Bld) [#/Vol] 4.47 10*6/uL 4.2-5.4 [facility] Work Phone: Blood hemoglobin measurement (mass/volume)on 10-19-2021 Hemoglobin (Bld) [Mass/Vol] 13.7 g/dL 12.0-15.0 [facility] Work Phone: Blood lymphocytes/100 leukoc yteson 10-19-2021 Lymphocytes/100 WBC (Bld) 24.1 % 19-41 [facility] [facility] Work Phone: Blood monocytes/100 leukocyt eson 10-19-2021 Monocytes/100 WBC (Bld) 6.8 % 0-10 [facility] Work Phone: Blood platelet mean volumeon 10-19-2021 Platelet mean volume (Bld) [Entitic vol] 10.4 fL 6.2-12.0 [facility] Work Phone: Determination of erythrocyte mean corpuscular volume (MCV)on 10-19-2021 MCV (RBC) [Entitic vol] 95.3 fL 81-99 [facility] Work Phone: Hematocrit Auto (Bld) [Volum e fraction]on 10-19-2021 Hematocrit (Bld) [Volume fraction] 42.6 % 37-47 [facility] Work Phone: Laboratory - Chemistry and C hemistry - challengeon 10-19-2021 ALP [Catalytic activity/Vol] 61 U/L 45-117 [facility] Work Phone: ALT [Catalytic activity/Vol] 26 U/L 13-56 [facility] Work Phone: CO2 [Moles/Vol] 27.0 mmol/L 21.0-32.0 [facility] Work Phone: Globulin (S) [Mass/Vol] 3.9 g/dL 2.2-4.2 [facility] Work Phone: Urea nitrogen/Creatinine [Mass ratio] 26.6 mg/mg 10-20 [facility] Work Phone: Laboratory - Hematology and Cell countson 10-19-2021 Erythrocyte distribution width (RBC) [Entitic vol] 45.4 fL 35.1-43.9 [facility] Work Phone: Erythrocyte distribution width (RBC) [Ratio] 12.9 % 11.6-14.6 [facility] Work Phone: Immature granulocytes/100 WBC (Bld) 0.500 % 0.0-0.9 [facility] Work Phone: Comment on above: IG% - Immature Granu locytes (promyelocytes, myelocytes and metamyelocytes) > 1% indicates that a LEFT SHIFT is Present. MCH (RBC) [Entitic mass] 30.6 pg 27.0-32.0 [facility] Work Phone: Nucleated RBC/100 WBC (Bld) [Ratio] 0 % 0-5 [facility] Work Phone: MCHC Auto (RBC) [Mass/Vol]on 10-19-2021 MCHC (RBC) [Mass/Vol] 32.2 g/dL 32-36 [facility] Work Phone: No Panel Informationon 10-19 Estimated GFR (MDRD) Amer 71 mL/min >60 [facility] Work Phone: Comment on above: GFR Calc Estimated GFR (MDRD) Non-Af Amer 58 mL/min >60 [facility] Work Phone: Comment on above: Non- GFR Calc Thyroid Stimulating Hormone (TSH) 2.52 uIU/mL 0.358-3.74 [facility] Work Phone: Vitamin D 25-Hydroxy 14.4 ng/mL [facility] Work Phone: Comment on above: Vitamin D 25(OH) Sta tus Range Deficiency <20 ng/mL (50nmol/L) Insufficiency 20 - 30 ng/mL (50 - 75 nmol/L) Sufficiency 30 - 100 ng/mL (75 - 250 nmol/L) Toxicity >100 ng/mL (>250 nmol/L) Platelets bldon 10-19-2021 Platelets (Bld) [#/Vol] 259 10*3/uL 150-450 [facility] Work Phone: Serum or plasma albumin andrew urement (mass/volume)on 10-19-2021 Albumin [Mass/Vol] 3.5 g/dL 3.2-5.0 [facility] Work Phone: Serum or plasma albumin/glob ulin mass ratioon 10-19-2021 Albumin/Globulin [Mass ratio] 0.9 {ratio} 0.9-2.4 [facility] Work Phone: Serum or plasma calcium andrew urement (mass/volume)on 10-19-2021 Calcium [Mass/Vol] 9.3 mg/dL 8.5-10.1 [facility] Work Phone: Serum or plasma cholesterol in HDL measurement (mass/volume)on 10-19-2021 Cholesterol in HDL [Mass/Vol] 51 mg/dL [facility] Work Phone: Comment on above: The drugs N-Acetylcy steine and Metamizole may falsely depress this assay. Reference Range HDL <40 mg/dL Low HDL Cholesterol HDL >or= 60 mg/dL High HDL Cholesterol Serum or plasma cholesterol in VLDL measurement (mass/volume)on 10-19-2021 Cholesterol in VLDL [Mass/Vol] 44 mg/dL 5-40 [facility] Work Phone: Serum or plasma creatinine m easurement (mass/volume)on 10-19-2021 Creatinine [Mass/Vol] 0.98 mg/dL 0.55-1.02 [facility] Work Phone: Comment on above: The validity of the calculated GFR & GFRAA in patients over 70 years has not been determined. Clinical correlation is essential. Serum or plasma low density lipoprotein (LDL) cholesterol measurement (mass/volume)on 10-19-2021 Cholesterol in LDL [Mass/Vol] 135 mg/dL 0-130 [facility] Work Phone: Serum or plasma urea nitroge n measurement (mass/volume)on 10-19-2021 Urea nitrogen [Mass/Vol] 26 mg/dL 7-18 [facility] Work Phone: Thin prep Papanicolaou smear with manual screeningon 10-19-2021 Thin prep Papanicolaou smear with manual screening 21 U/L 15-37 [facility] Work Phone: Thin prep Papanicolaou smear with manual screening 6 5-15 [facility] Work Phone: Gram stain for investigation of transfusion reactionon 09-06-2021 Microscopic observation Gram stain Nom (Unsp spec) [facility] Work Phone: No Panel Informationon 09-06 Methicillin-Resist S.aureus DNA PCR Negative Negative [facility] Work Phone: Staphylococcus aureus DNA de tection by probe and target amplification methodon 09-06-2021 S. aureus DNA YASMIN+probe Ql (Unsp spec) Negative Negative [facility] Work Phone: CNOVon 10-02-2020 CNOV Office Visit (UCWSTR ) -------- ALEJANDRA ALARCON ([id number]) 1940 F Date Time Provider Department 10/02/20 1:00 PM SUSIE GARCIA[facility] During your visit today, we recorded the following information about you: Temperature Pulse Respiration Blood pressure 97.6 degrees 118/minute 18/minute 128/80 Weight 95.3 kg Susie Garcia PA-C 10/02/2020 1:07 PM Signed This note was created using [employer]. Subjective Alejandra Alarcon is a 79 year old female. HPI [...] for ER care. Patient and daughter agreeable. Susie Garcia PA-C Medical Decision Making: Problems: Low: Acute, uncomplicated illness or injury Data: Unique source(s) for external note(s) reviewed: 2 Unique test result(s) reviewed: 1 Risk: Moderate: Drug management Medical Decision Making Level: 4 - Moderate Referring Provider: SELF [[id number]] Allergies As of Date: 10/02/2020 Noted Allergy Reaction HYDROCODONE-ACETAMINOPHE N 11/10/2018 8 - GI Upset PENICILLINS 11/10/2018 4 - Hives Date Reviewed: 10/02/2020 Reviewed by: Liliana Noriega Ma - Fully Assessed Reason for Visit: Derm Problem [33] Cmt: red and swollen right hand x 1 week Primary Visit Diagnosis:Cellulitis of hand, right [L03.113] Order(s):doxycycline (VIBRA-TABS) 100 mg tabletTake 1 tablet by mouth twice daily for 10 days.Disp: 20 tabletRfl: 0 Prescriptions as of 10/02/2020 Sig: LEVOTHYROXINE 25 MCG TABLET ALBUTEROL INHALATION Inhale as instructed. Pt has * NAPROXEN ORAL Take by mouth. DOXYCYCLINE HYCLATE 100 MG TA* Take 1 tablet by mouth twice * Problem List As Of Date: 10/02/2020 (None) Prescriptions ordered this encounter Disp Refills Start End DOXYCYCLINE HYCLATE 100 MG TABLET 20 t* 0 10/02/2020 10/12/2020 Route: ORAL Sig: Take 1 tablet by mouth twice daily for 10 days. Encounter Status:Closed by SUSIE GARCIA PA-C on 10/02/[address] [facility] No Panel Information Influenza Types A,B Direct FA ([facility]) [facility] Work Phone: Vital Signs Date Time Vital Sign Value Performing Clinician Facility 11-23-2024 18:53-0400 Diastolic blood pressure 80 mm[Hg] Dr. Rancho Matthew MD Work Phone: [facility] 11-23-2024 18:53-0400 Systolic blood pressure 138 mm[Hg] Dr. Rancho Matthew MD Work Phone: [facility] 11-23-2024 18:52-0400 Body temperature 97.3 [degF] Dr. Rancho Matthew MD Work Phone: [facility] 11-23-2024 18:52-0400 Heart rate 58 /min Dr. Rancho Matthew MD Work Phone: [facility] 11-23-2024 18:52-0400 Respiratory rate 18 /min Dr. Rancho Matthew MD Work Phone: [facility] 11-23-2024 18:52-0400 SaO2% (BldA) [Mass fraction] 96 % Dr. Rancho Matthew MD Work Phone: 5(720)429-243047 [place] [address] 11-23-2024 15:35-0400 Body height 157.[address] Rancho Matthew MD Work Phone: 9(197)765-083355 [place] [address] 11-23-2024 15:35-0400 Body mass index (BMI) [Ratio] 37.6 kg/m2 Dr. Rancho Matthew MD Work Phone: 5(027)833-277855 [place] [address] 11-23-2024 15:35-0400 Body weight 93.[address] Rancho Matthew MD Work Phone: 8(375)478-775655 [place] [address] 10-30-2024 08:07-0400 Heart rate 78 /min Dr. Rancho Matthew MD Work Phone: 3(027)711-383755 [place] [address] 10-30-2024 08:04-0400 Body temperature 97.2 [degF] Dr. Rancho Matthew MD Work Phone: 5(232)003-808355 [place] [address] 10-30-2024 08:04-0400 Diastolic blood pressure 58 mm[Hg] Dr. Rancho Matthew MD Work Phone: 5(092)299-338355 [place] [address] 10-30-2024 08:04-0400 Respiratory rate 18 /min Dr. Rancho Matthew MD Work Phone: 2(606)421-109055 [place] [address] 10-30-2024 08:04-0400 SaO2% (BldA) [Mass fraction] 93 % Dr. Rancho Matthew MD Work Phone: 1(782)974-237455 [place] [address] 10-30-2024 08:04-0400 Systolic blood pressure 104 mm[Hg] Dr. Rancho Matthew MD Work Phone: 1(085)366-773055 [place] [address] 10-28-2024 10:27-0400 Body mass index (BMI) [Ratio] 36.2 kg/m2 Dr. Rancho Matthew MD Work Phone: 4(016)538-362655 [place] [address] 10-28-2024 10:27-0400 Body weight 89.[address] Rancho Matthew MD Work Phone: [facility] 10-22-2024 10:16-0400 Body height 157.[address] Rancho Matthew MD Work Phone: 1(957)607-310047 [place] [address] 10-03-2024 13:45-0500 Heart rate 104 /min Dr. Rancho Matthew MD Work Phone: 9(491)209-878347 [place] [address] 10-03-2024 13:45-0500 Respiratory rate 18 /min Dr. Rancho Matthew MD Work Phone: 4(409)434-526147 [place] [address] 10-03-2024 09:46-0500 Body temperature 98.7 [degF] Dr. Rancho Matthew MD Work Phone: 4(193)277-850255 [place] [address] 10-03-2024 09:46-0500 Diastolic blood pressure 65 mm[Hg] Dr. Rancho Matthew MD Work Phone: 2(001)041-546355 [place] [address] 10-03-2024 09:46-0500 SaO2% (BldA) [Mass fraction] 93 % Dr. Rancho Matthew MD Work Phone: 7(220)619-233647 [place] [address] 10-03-2024 09:46-0500 Systolic blood pressure 122 mm[Hg] Dr. Rancho Matthew MD Work Phone: 5(355)742-380755 [place] [address] 10-02-2024 20:00-0500 Inhaled oxygen flow rate 2 L/min Dr. Rancho Matthew MD Work Phone: 6(815)875-712547 [place] [address] 09-30-2024 00:00-0500 Inhaled oxygen concentration 98 % Dr. Rancho Matthew MD Work Phone: 1(570)501-887847 [place] [address] 09-29-2024 12:38-0500 Body mass index (BMI) [Ratio] 34.7 kg/m2 Dr. Rancho Matthew MD Work Phone: 8(016)782-462747 [place] [address] 09-29-2024 12:38-0500 Body weight 88.[address] Rancho Matthew MD Work Phone: [facility] 08-20-2024 13:55-0500 Body mass index (BMI) [Ratio] 35.8 kg/m2 Dr. Rancho Matthew MD Work Phone: [facility] 08-20-2024 13:55-0500 Body weight 88.[address] Rancho Matthew MD Work Phone: 6(279)110-016847 [place] [address] 08-20-2024 13:55-0500 Diastolic blood pressure 75 mm[Hg] Dr. Rancho Matthew MD Work Phone: 5(192)326-961547 [place] [address] 08-20-2024 13:55-0500 Heart rate 73 /min Dr. Rancho Matthew MD Work Phone: 0(929)458-452555 [place] [address] 08-20-2024 13:55-0500 Respiratory rate 18 /min Dr. Rancho Matthew MD Work Phone: 5(348)751-518555 [place] [address] 08-20-2024 13:55-0500 SaO2% (BldA) [Mass fraction] 92 % Dr. Rancho Matthew MD Work Phone: 5(179)554-500255 [place] [address] 08-20-2024 13:55-0500 Systolic blood pressure 134 mm[Hg] Dr. Rancho Matthew MD Work Phone: 2(493)978-835955 [place] [address] 08-16-2023 13:07-0500 Body height 160.[address] Rancho Matthew Work Phone: 5(973)718-957455 [place] [address] 08-16-2023 13:07-0500 Body mass index (BMI) [Ratio] 35.8 kg/m2 Dr. Rancho Matthew Work Phone: 8(539)809-572047 [place] [address] 08-16-2023 13:07-0500 Body weight 91.[address] Rancho Matthew Work Phone: 8(273)038-013247 [place] [address] 08-16-2023 13:07-0500 Diastolic blood pressure 89 mm[Hg] Dr. Rancho Matthew Work Phone: 6(226)376-556747 [place] [address] 08-16-2023 13:07-0500 Heart rate 91 /min Dr. Rancho Matthew Work Phone: 7(526)700-236947 [place] [address] 08-16-2023 13:07-0500 Respiratory rate 16 /min Dr. Rancho Matthew Work Phone: 4(206)199-792947 [place] [address] 08-16-2023 13:07-0500 Systolic blood pressure 143 mm[Hg] Dr. Rancho Matthew Work Phone: 1(258)436-652847 [place] [address] 03-25-2023 09:34-0400 SaO2% (BldA) [Mass fraction] 97 % Dr. Rancho Matthew Work Phone: 6(710)024-766447 [place] [address] 03-25-2023 09:17-0400 Body height 160.[address] Rancho Matthew Work Phone: 1(499)729-781431 [address] 03-25-2023 09:17-0400 Body mass index (BMI) [Ratio] 35.7 kg/m2 Dr. Rancho Matthew Work Phone: 7(299)624-733531 [address] 03-25-2023 09:17-0400 Body temperature 98 [degF] Dr. Rancho Matthew Work Phone: 9(394)535-797755 [place] [address] 03-25-2023 09:17-0400 Body weight 91.[address] Rancho Matthew Work Phone: 0(199)159-555555 [place] [address] 03-25-2023 09:17-0400 Diastolic blood pressure 73 mm[Hg] Dr. Rancho Matthew Work Phone: 7(913)023-910955 [place] [address] 03-25-2023 09:17-0400 Heart rate 82 /min Dr. Rancho Matthew Work Phone: 7(631)674-411155 [place] [address] 03-25-2023 09:17-0400 Respiratory rate 16 /min Dr. Rancho Matthew Work Phone: 0(049)203-879655 [place] [address] 03-25-2023 09:17-0400 Systolic blood pressure 154 mm[Hg] Dr. Rancho Matthew Work Phone: 1(834)942-613347 [place] [address] 12-27-2022 12:57-0400 Body height 160.[address] Rancho Matthew Work Phone: 7(616)941-295655 [place] [address] 12-27-2022 12:57-0400 Body mass index (BMI) [Ratio] 35.4 kg/m2 Dr. Rancho Matthew Work Phone: 4(766)267-471555 [place] [address] 12-27-2022 12:57-0400 Body weight 90.[address] Rancho Matthew Work Phone: [facility] 12-27-2022 12:57-0400 Diastolic blood pressure 78 mm[Hg] Dr. Rancho Matthew Work Phone: [facility] 12-27-2022 12:57-0400 Heart rate 70 /min Dr. Rancho Matthew Work Phone: [facility] 12-27-2022 12:57-0400 Respiratory rate 18 /min Dr. Rancho Matthew Work Phone: 9(647)505-423847 [place] [address] 12-27-2022 12:57-0400 SaO2% (BldA) [Mass fraction] 95 % Dr. Rancho Matthew Work Phone: [facility] 12-27-2022 12:57-0400 Systolic blood pressure 144 mm[Hg] Dr. Rancho Matthew Work Phone: 1(820)025-642931 [address] 07-10-2022 14:35-0500 Body height 160.[address] Rancho Matthew Work Phone: 1(460)505-986147 [place] [address] 07-10-2022 14:35-0500 Body mass index (BMI) [Ratio] 34.2 kg/m2 Dr. Rancho Matthew Work Phone: [facility] 07-10-2022 14:35-0500 Body weight 87.[address] Rancho Matthew Work Phone: [facility] 07-10-2022 14:35-0500 Diastolic blood pressure 104 mm[Hg] Dr. Rancho Matthew Work Phone: [facility] 07-10-2022 14:35-0500 Systolic blood pressure 168 mm[Hg] Dr. Rancho Matthew Work Phone: [facility] 06-21-2022 12:46-0500 Body height 160.[address] Rancho Matthew Work Phone: [facility] Work Phone: 06-21-2022 12:46-0500 Diastolic blood pressure 80 mm[Hg] Dr. Rancho Matthew Work Phone: [facility] Work Phone: 06-21-2022 12:46-0500 Systolic blood pressure 148 mm[Hg] Dr. Rancho Matthew Work Phone: [facility] Work Phone: 06-21-2022 12:46-0500 Body mass index (BMI) [Ratio] 34.9 kg/m2 Dr. Rancho Matthew Work Phone: [facility] Work Phone: 06-21-2022 12:46-0500 Body weight 89.[address] Rancho Matthew Work Phone: [facility] Work Phone: 06-21-2022 12:46-0500 Heart rate 80 /min Dr. Rancho Matthew Work Phone: [facility] Work Phone: 06-21-2022 12:46-0500 Respiratory rate 18 /min Dr. Rancho Matthew Work Phone: [facility] Work Phone: 06-21-2022 12:46-0500 SaO2% (BldA) [Mass fraction] 94 % Dr. Rancho Matthew Work Phone: [facility] Work Phone: 12-21-2021 13:09-0400 Body height 160.[address] Rancho Matthew Work Phone: [facility] Work Phone: 12-21-2021 13:09-0400 Body mass index (BMI) [Ratio] 35.2 kg/m2 Dr. Rancho Matthew Work Phone: [facility] Work Phone: 12-21-2021 13:09-0400 Body weight 90.[address] Rancho Matthew Work Phone: [facility] Work Phone: 12-21-2021 13:09-0400 Body height 160.[address] Rancho Matthew Work Phone: [facility] Work Phone: 12-21-2021 13:09-0400 Body mass index (BMI) [Ratio] 35.2 kg/m2 Dr. Rancho Matthew Work Phone: [facility] Work Phone: 12-21-2021 [id number]:09040 Body weight 90.[address] Rancho Matthew Work Phone: [facility] Work Phone: Encounters Encounter Date Encounter Type Care Provider Facility Start: 11-23-2024 End: 11-23-2024 Emergency department patient visit Dr. Rancho Matthew MD Work Phone: -Emergency Department Work Phone: Start: 10-03-2024 End: 10-30-2024 Evaluation and management of inpatient Dr. Rancho Matthew MD -Transitional Care Unit Start: 10-03-2024 [facility] Start: 10-03-2024 Non-patient / Non-visit Dr. Meli Salgado MD -[facility] Work Phone: Start: 10-02-2024 ambulatory Alondra Rm Facility: [facility] Start: 10-02-2024 End: 10-03-2024 Evaluation and management of inpatient Dr. Alondra Rm MD -Medical Surgical 3 Work Phone: Start: 10-02-2024 Non-patient / Non-visit Dr. Meli Salgado MD -[facility] Work Phone: Start: 10-01-2024 Non-patient / Non-visit Dr. Meli Salgado MD -[facility] Work Phone: Start: 09-30-2024 Non-patient / Non-visit Dr. Beba Erickson MD -[facility] Work Phone: Start: 09-29-2024 Non-patient / Non-visit Dr. Beba Erickson MD -[facility] Work Phone: Start: 09-29-2024 ambulatory Rancho Chi Nikos Facility:[facility] Start: 09-24-2024 Encounter for other preprocedural examination Rancho Chi Nikos [facility] Start: 09-04-2024 End: 09-04-[address] Rancho Matthew MD -Laboratory, Phy Office 3rd Car Start: 09-04-2024 End: 09-04-2024 ambulatory Rancho Chi Nikos Facility:[facility] Start: 08-20-2024 End: 08-20-2024 Patient encounter procedure Rosaura BISWAS -[facility] Work Phone: Start: 08-20-2024 End: 08-20-2024 ambulatory Rancho Chi Nikos Facility:[facility] Start: 05-18-2024 End: 05-18-2024 Emergency department patient visit Rancho Chi Nikos Facility:[facility] Start: 03-11-2024 End: 03-28-2024 Evaluation and management of inpatient Rancho Chi Nikos Facility:[facility] Start: 03-09-2024 End: 03-11-2024 ambulatory Rancho Chi Nikos Facility:[facility] Start: 03-06-2024 End: 03-06-2024 ambulatory Rancho Chi Nikos Facility:[facility] Start: 02-21-2024 End: 02-21-2024 ambulatory Rancho Chi Nikos Facility:[facility] Start: 01-25-2024 ambulatory Sidney Lawson Facility:[facility] Start: 01-25-2024 End: 01-25-2024 ambulatory Rancho Chi Nikos Facility:[facility] Start: 01-24-2024 End: 01-24-2024 ambulatory Rancho Chi Nikos Facility:[facility] Start: 01-10-2024 End: 01-10-2024 ambulatory Rancho Chi Nikos Facility:[facility] Start: 12-13-2023 End: 12-13-2023 ambulatory [facility] Work Phone: Start: 12-13-2023 End: 12-13-2023 Patient encounter procedure [facility]-Laboratory Work Phone: Start: 12-13-2023 End: 12-13-2023 ambulatory Rancho Matthew Facility:[facility] Start: 11-05-2023 End: 11-05-[address] Rancho Matthew Work Phone: [facility] Work Phone: Start: 11-05-2023 End: 11-05-[address] Rancho Matthew Work Phone: [facility]-Laboratory Work Phone: Start: 08-24-2023 End: 08-24-[address] Rancho Matthew Work Phone: [facility] Work Phone: Start: 08-24-2023 End: 08-24-[address] Rancho Matthew Work Phone: [facility]-Laboratory, Phy Office [address] [place] [address] Start: 08-16-2023 End: 08-16-[address] Rancho Matthew Work Phone: [facility] Work Phone: Start: 07-30-2023 End: 07-30-2023 Patient encounter procedure [facility]-Radiology, [facility] Work Phone: Start: 06-28-2023 End: 06-28-[address] Rancho Matthew Work Phone: [facility] Work Phone: Start: 06-28-2023 End: 06-28-[address] Rancho Matthew Work Phone: [facility]-Pulmonary Services/Neurology Work Phone: Start: 06-18-2023 End: 06-18-[address] Rancho Matthew Work Phone: [facility] Work Phone: Start: 06-18-2023 End: 06-18-[address] [facility] Start: 06-08-2023 End: 06-08-[address] Rancho Matthew Work Phone: [facility] Work Phone: Start: 06-08-2023 End: 06-08-[address] Rancho Matthew Work Phone: [facility]-Radiology, [facility] Work Phone: Start: 05-09-2023 End: 05-09-[address] Rancho Matthew Work Phone: [facility] Work Phone: Start: 05-09-2023 End: 05-09-[address] Rancho Matthew Work Phone: [facility]-Laboratory, y Office [address] [place] [address] Start: 04-09-[address] Rancho sellers Work Phone: [facility]-Physical Therapy Work Phone: Start: 03-25-2023 End: 03-25-[address] Rancho Matthew Work Phone: [facility] Work Phone: Start: 02-07-2023 End: 02-07-[address] Rancho Matthew Work Phone: [facility] Work Phone: Start: 02-07-2023 End: 02-07-[address] [facility] Matthew [facility] Start: 12-27-2022 End: 12-27-[address] Rancho Matthew Work Phone: [facility] Work Phone: Start: 10-25-2022 End: 03-15-[address] Rancho Matthew Work Phone: [facility] Work Phone: Start: 10-25-2022 End: 10-25-[address] Rancho Matthew [facility] Start: 08-17-2022 End: 08-17-[address] Rancho Matthew Work Phone: [facility] Start: 07-31-2022 End: 07-31-[address] Rancho Matthew Work Phone: [facility] Start: 07-26-2022 End: 07-26-[address] Rancho Matthew Work Phone: [facility] Work Phone: Start: 07-26-2022 End: 07-26-[address] Rancho Matthew Work Phone: [facility] Office 3rd Flr Start: 07-10-2022 End: 07-10-[address] Rancho Matthew Work Phone: [facility] Start: 07-04-2022 End: 07-04-[address] Rancho Matthew Work Phone: [facility] Work Phone: Start: 07-04-2022 End: 07-04-[address] Rancho Matthew Work Phone: [facility]-Pulmonary Services/Neurology Start: 06-21-2022 End: 06-21-[address] Rancho Matthew Work Phone: [facility] Start: 04-18-2022 End: 04-18-[address] Rancho Matthew Work Phone: [facility] Office 3rd Flr Start: 04-03-2022 End: 04-03-[address] Rancho Matthew Work Phone: [facility] Work Phone: Start: 04-03-2022 End: 04-03-[address] Rancho Matthew [facility] Start: 01-18-2022 End: 01-18-[address] Rancho Matthew [facility] Start: 01-03-2022 Non-patient / Non-visit Dr. Baltazar Matthew Work Phone: [facility] Start: 01-03-2022 End: 01-03-[address] Rancho Matthew [facility] Start: 12-21-2021 End: 12-21-[address] Rancho Matthew Work Phone: [facility] Start: 11-11-2021 End: 11-11-[address] Rancho Matthew [facility] Start: 11-01-2021 End: 11-01-[address] [facility] Matthew [facility] Start: 10-20-2021 End: 10-20-[address] Rancho Matthew [facility] Phone[facility] Start: 10-19-2021 Non-patient / Non-visit Dr. Baltazar Matthew Work Phone: [facility] Start: 10-19-2021 End: 10-19-[address] Rancho Matthew [facility] Start: 09-12-2021 End: 09-12-[address] Rancho Matthew Work Phone: [facility]-Cat Scan, [facility] Start: 09-06-2021 End: 09-06-[address] Rancho Matthew Work Phone: [facility]-Laboratory, Specimen Start: 08-23-2021 End: 08-23-[address] Rancoh Matthew Work Phone: [facility] Start: 08-01-2021 End: 08-01-[address] Rancho Matthew Work Phone: [facility] Procedures Date Procedure Procedure Detail Performing Clinician Start: 11-23-2024 Urnls dip stick/tabl et reagent auto microscopy Dr. Rancho Matthew MD Work Phone: Start: 11-23-2024 Plain chest X-ray Dr. Joseph Matthew MD Work Phone: Start: 11-23-[address] Rancho Matthew MD Work Phone: Start: 10-24-[address] Rancho Matthew MD Work Phone: Start: 10-24-2024 Measurement of renal function Dr. Rancho Matthew MD Work Phone: Comment on above: Test not performed Start: 10-01-2024 Urnls dip stick/tabl et reagent auto microscopy Dr. Rancho Matthew MD Work Phone: Start: 10-01-[address] Rancho sellers MD Work Phone: Start: 09-30-[address] Rancho Matthew MD Work Phone: Start: 09-30-2024 Measurement of renal function Dr. Rancho Matthew MD Work Phone: Comment on above: GFR Calc Start: 09-29-2024 Total replacement of hip Dr. Rancho Matthew MD Work Phone: Start: 09-29-2024 Plain X-ray of hip Dr. Rancho Matthew MD Work Phone: Start: 09-29-2024 Fluoroscopic guidance Ely Matthew MD Work Phone: Start: 09-29-2024 Plain x-ray of pelvi s and lower extremity Dr. Rancho Matthew MD Work Phone: Start: 09-04-2024 Measurement of renal function Dr. Rancho Matthew MD Work Phone: Comment on above: GFR Calc Start: 09-04-2024 Vitamin D, 25-hydrox y measurement Dr. Rancho Matthew MD Work Phone: Comment on above: Vitamin D 25(OH) Sta tus Range Deficiency <20 ng/mL (50nmol/L) Insufficiency 20 - 30 ng/mL (50 - 75 nmol/L) Sufficiency 30 - 100 ng/mL (75 - 250 nmol/L) Toxicity >100 ng/mL (>250 nmol/L) Start: 09-04-2024 Methicillin resistan t Staphylococcus aureus screening test Dr. Rancho Matthew MD Work Phone: Start: 08-20-2024 Evaluation of diagno stic study results Dr. Rancho Matthew MD Work Phone: Start: 07-30-2023 Plain x-ray of pelvi s and lower extremity Start: 06-28-2023 Coronavirus COVID-[address] Rancho Matthew Work Phone: Start: 06-28-2023 Influenza Types A,B Direct FA (ALO) Dr. Rancho Matthew Work Phone: Start: 06-28-2023 Respiratory syncytia l virus antigen assay Dr. Rancho Matthew Work Phone: Start: 06-08-2023 Plain X-ray of shoulder Dr. Rancho Matthew Work Phone: Start: 11-11-2021 Investigation of transfusion reaction Dr. Rancho Matthew Work Phone: Start: 11-11-2021 End: 11-11-2021 Microbial culture, routine Dr. Rancho Matthew Work Phone: Start: 09-12-2021 MRI of lower extremity Dr. Rancho Matthew Work Phone: Start: 09-06-2021 Investigation of transfusion reaction Dr. Rancho Matthew Work Phone: Start: 09-06-2021 End: 09-06-2021 Microbial culture, routine Dr. Rancho Matthew Work Phone: Influenza Types A,B Direct FA (ALO) Dr. Rancho Matthew Work Phone: Respiratory syncytia l virus antigen assay Dr. Rancho Matthew Work Phone: Plan of Treatment Date Care Activity Detail Author Start: 11-23-[address] [facility] Start: 11-23-2024 End: 11-23-2024 [facility] Start: 10-30-2024 Development of care plan [facility] Start: 10-30-2024 Patient discharge [facility] Start: 10-21-2024 Referral to service [facility] Start: 10-06-2024 Application of device [facility] Start: 10-04-2024 Developing a treatment plan [facility] Start: 10-04-2024 Development of care plan [facility] Start: 10-03-2024 Following clinical p athway protocol [facility] Start: 10-03-2024 Provision of activit y privileges [facility] Start: 10-03-2024 Admission procedure [facility] Start: 10-03-2024 Introduction of urin mau catheter [facility] Start: 10-03-2024 Measuring intake and output [facility] Start: 10-03-2024 End: 10-04-2024 Patient referral to dietitian [facility] Start: 10-03-2024 Referral to occupati onal therapist [facility] Start: 10-03-2024 Referral to service [facility] Start: 10-03-2024 Vital signs measurements [facility] Start: 10-03-2024 End: 10-03-2024 [facility] Start: 10-03-2024 Patient discharge [facility] Start: 10-02-2024 Admission procedure [facility] Start: 10-02-[address] [facility] Start: 09-30-2024 Inhalation therapy procedure [facility] Start: 09-29-2024 Application of inter mittent pneumatic compression device [facility] Start: 09-29-2024 Oxygen therapy [facility] Start: 09-29-2024 Following clinical p athway protocol [facility] Start: 09-29-2024 Provision of overbed trapeze [facility] Start: 09-29-2024 Recommendation to co marta with treatment [facility] Start: 09-29-2024 Ambulation therapy management [facility] Start: 09-29-2024 Application of device [facility] Start: 09-29-2024 Assessment of risk o f venous thromboembolism [facility] Start: 09-29-2024 Catheterization of vein [facility] Start: 09-29-[address] [facility] Start: 09-29-[address] [facility] Start: 09-29-2024 Following clinical p athway protocol [facility] Start: 09-29-2024 Incentive spirometry [facility] Start: 09-29-2024 Introduction of urin mau catheter [facility] Start: 09-29-2024 Measuring intake and output [facility] Start: 09-29-2024 Neurovascular assessment [facility] Start: 09-29-2024 Patient education [facility] Start: 09-29-2024 Procedure discontinued [facility] Start: 09-29-2024 Provision of activit y privileges [facility] Start: 09-29-2024 Referral to occupati onal therapist [facility] Start: 09-29-2024 Referral to service [facility] Start: 09-29-2024 Vital signs measurements [facility] Start: 09-29-[address] [facility] Start: 09-29-[address] [facility] Start: 09-29-2024 Admission procedure [facility] Start: 12-13-[address] [facility] Start: 11-05-[address] [facility] Start: 06-18-[address] [facility] Complete blood count [facility] Patient Education ED Low Blood Pressure, All Causes [facility] Work Phone: Patient referral [facility] Work Phone: Immunizations Immunization Date Immunization Notes Care Provider Bj cristobalsolange 07-14-2024 RSV Adult Recombinan t (Arexvy) Dr. Rancho Matthew MD Work Phone: [facility] 05-22-2024 influenza, injectabl e, quadrivalent, preservative free Dr. Rancho Matthew MD Work Phone: [facility] 08-15-2023 RSV Adult BiValent (Abrysvo) Dr. Rancho Matthew MD Work Phone: [facility] 05-09-2023 influenza, injectabl e, quadrivalent, preservative free Dr. Rancho Matthew MD Work Phone: [facility] 01-18-2022 Covid (Moderna) Dr. Rancho Matthew MD Work Phone: [facility] 06-24-2021 Covid (Moderna) Dr. Rancho Matthew MD Work Phone: [facility] 04-20-2021 influenza, injectabl e, quadrivalent, preservative free Dr. Rancho Matthew MD Work Phone: [facility] 11-12-2020 Covid (Pfizer) Dr. Rancho Matthew Work Phone: [facility] 10-19-2020 Covid (Pfizer) Dr. Rancho Matthew Work Phone: [facility] 05-13-[address] Rancho Matthew Work Phone: [facility] 05-05-2020 influenza, injectabl e, quadrivalent, preservative free Dr. Rancho Matthew MD Work Phone: [facility] 01-09-[address] Rancho Matthew MD Work Phone: [facility] 07-04-[address] Rancho Matthew MD Work Phone: [facility] 05-01-2019 Influenza, high dose seasonal Dr. Rancho Matthew MD Work Phone: [facility] 05-28-2018 Influenza, high dose seasonal Dr. Rancho Matthew MD Work Phone: [facility] 05-01-2017 Influenza, high dose seasonal Dr. Rancho Matthew MD Work Phone: [facility] 05-22-2016 influenza, injectabl e, quadrivalent, preservative free Dr. Rancho Matthew MD Work Phone: [facility] 03-26-2015 pneumococcal conjuga te vaccine, [address] Rancho Matthew MD Work Phone: [facility] 05-21-2014 influenza, injectabl e, quadrivalent, preservative free Dr. Rancho Matthew MD Work Phone: [facility] 04-30-2013 Influenza, high dose seasonal Dr. Rancho Matthew MD Work Phone: [facility] 06-08-2009 novel influenza-H1N1 -09, preservative-free, injectable Dr. Rancho Matthew MD Work Phone: [facility] 12-12-2007 pneumococcal polysaccharide vaccine, [address] Rancho Matthew MD Work Phone: [facility] Payers Date Payer Category Payer Self-pay [id number] 2013 Medicare [id number] Medicare [id number] Unknown [id number] 2.16.8 [id number] Unknown [id number] 2.16.8 [id number] Unknown [id number] 2.16.8 40.1.080927.3.579.2.462 Unknown [id number] 2.16.8 40.1.659259.3.579.2.462 Unknown [id number] 2.16.8 40.1.421306.3.579.2.462 Unknown [id number] 2.16.8 40.1.303114.3.579.2.462 Unknown [id number] 2.16.8 40.1.870759.3.579.2.462 Unknown [id number] 2.16.8 40.1.038203.3.579.2.462 Unknown [id number] 2.16.8 40.1.998778.3.579.2.462 Unknown [id number] 2.16.8 40.1.552082.3.579.2.462 Unknown [id number] 2.16.8 40.1.643821.3.579.2.462 Unknown [id number] 2.16.8 40.1.175667.3.579.2.462 Unknown [id number] 2.16.8 40.1.138049.3.579.2.462 Unknown [id number] 2.16.8 40.1.518592.3.579.2.462 Unknown [id number] 2.16.8 40.1.113004.3.579.2.462 Unknown [id number] 2.16.8 40.1.058105.3.579.2.462 Unknown [id number] 2.16.8 40.1.433146.3.579.2.462 Unknown [id number] 2.16.8 40.1.894326.3.579.2.462 Unknown [id number] 2.16.8 40.1.854360.3.579.2.462 Unknown [id number] 2.16.8 40.1.551958.3.579.2.462 Unknown [id number] 2.16.8 40.1.421994.3.579.2.462 Unknown [id number] 2.16.8 40.1.578403.3.579.2.462 Unknown [id number] 2.16.8 40.1.263910.3.579.2.462 Social History Date Type Detail Facility Start: 11-01-2021 End: 08-16-2023 Tobacco smoking status NHIS Unknown if ever smoked [facility] Start: 07-20-[address] [facility] Start: 07-20-2020 Spouse/ Signif icant Other [facility] Start: 1940 Sex Assigned At Female [facility] Start: 10-03-2024 End: 11-23-2024 Tobacco smoking status NHIS Ex-smoker (finding) [facility] Start: 10-30-2024 End: 11-23-2024 Sex Female (finding) [facility] NEGATED: Highlighted row Not [facility] Medical Equipment Procedure Code Equipment Code Equipment Origin al Text Equipment Identifier Dates Minimally invasive total replacement of hip joint by anterior approach CLUSTERHOLE ACETABULAR SHELL FDA Start: 09-29-2024 Minimally invasive total replacement of hip joint by anterior approach ([id number]) Acetabular shell ()[id number] FDA Start: 09-29-2024 Minimally invasive total replacement of hip joint by anterior approach ([id number]) Metallic femoral head prosthesis ()[id number] FDA Start: 09-29-2024 Minimally invasive total replacement of hip joint by anterior approach ([id number]) Non-constrained polyethylene acetabular liner ()[id number] FDA Start: 09-29-2024 Minimally invasive total replacement of hip joint by anterior approach ([id number]) Coated hip femur prosthesis, modular ()[id number] ()[id number] FDA Start: 09-29-2024 Minimally invasive total replacement of hip joint by anterior approach CLUSTERHOLE ACETABULAR SHELL FDA Start: 09-29-2024 Minimally invasive total replacement of hip joint by anterior approach CLUSTERHOLE ACETABULAR SHELL FDA Start: 09-29-2024 Goals Date Patient Goal Desired Activity /State Functional Status Date Assessment Result Facility 10-30-2024 Functional status Chair [facility] Work Phone: 10-29-2024 Functional status Assistive Chayo pricila Standard Walker [facility] Work Phone: 10-28-2024 Functional status Tolerates Activity Well [facility] Work Phone: 10-03-2024 Functional status Chair [facility] Work Phone: Mental Status Date Assessment Result Facility 11-23-2024 Cognitive function Level Of Cons ciousness Awake;Alert;Appropriate;Follow s Commands [facility] Work Phone: 10-30-2024 Cognitive function Voice/Name [facility] Work Phone: 10-03-2024 Cognitive function Appropriate;Cooperativ e [facility] Work Phone: 10-03-2024 Cognitive function Voice/Name [facility] Work Phone: Clinical Notes 09-23-2020 to 11-23-2024 Note Date & Type Note Facility 11-23-2024 Radiology Diagnostic study note [facility] Imaging Services [address], [place] [id number] Chest 1 View (Portable) MR#: [id number] Acct: [id number] Name: ALEJANDRA ALARCON Rep #: [id number] : 1940 F 84 From: Teresa Valdez MD PCP: Dr. Rancho Matthew MD Status: REG E R Study:Chest 1 View (Portable) Date of Exam: 11/23/24 Exam# [id number] Ordering Dr: Eyl Michelle DO PROCEDURE: CHEST 1 VIEW (PORTABLE) 11/23/2024 REASON FOR EXAM: HYPOTENSION TECHNIQUE: Frontal view of the chest. COMPARISON: None FINDINGS: Hardware: None Heart: The heart size is normal. Atherosclerotic calcification of the thoracic aorta. Lungs: Mild bibasilar atelectasis. No focal consolidation. No pneumothorax. No pleural effusion. Bones: Degenerative changes are identified within the thoracic spine. Other: RAD/Chest 1 View (Portable) IMPRESSION: No Acute Findings. Reading Location: [facility] CC: Dr. Stephon Michelle DO; Dr. Rancho Matthew MD ~ Mental Health Consultant: Signed [facility] 10-21-2024 Discharge summary Note Date/Time October 21, 2024 7:42pm [facility] Medical Records Department [address] [place] [address] Discharge Summary 10/21/241931 MR#: [id number] Acct: [id number] Name: ALEJANDRA ALARCON Rep #:[id number] : 1940 84 From: Rancho Matthew MD PCP: Dr. Rancho Matthew MD Status:ADM I N Location: [place] [address] Providers Date of Admission: 10/03/24 Primary Care Physician: Dr. Rancho Matthew MD Reason For Visit: TOTAL HIP ANTERIOR APPROACH Diagnosis Discharge Diagnosis (1) Debility: Status: Acute Code(s): R53.81 - Other malaise (2) Status post left hip replacement: Status: Acute Code(s): Z96.642 - Presence of left artificial hip joint (3) Essential (primary) hypertension: Status: Acute Code(s): I10 - Essential (primary) hypertension (4) Hypothyroidism: Status: Chronic Code(s): E03.9 - Hypothyroidism, unspecified (5) GERD (gastroesophageal reflux disease): Status: Acute Code(s): K21.9 - Gastro-esophageal reflux disease without esophagitis (6) COPD (chronic obstructive pulmonary disease): Status: Chronic Code(s): J44.9 - Chronic obstructive pulmonary disease, unspecified (7) Obstructive sleep apnea: Status: Acute Code(s): G47.33 - Obstructive sleep apnea (adult) (pediatric) (8) Depression: Status: Acute Code(s): F32.A - Depression, unspecified (9) Insomnia: Status: Acute Code(s): G47.00 - Insomnia, unspecified (10) Low back pain: Status: Acute Code(s): M54.50 - Low back pain, unspecified (11) Hx of deep venous thrombosis: Status: Acute Code(s): Z86.718 - Personal history of other venous thrombosis and embolism (12) Atrial fibrillation: Status: Acute Code(s): I48.91 - Unspecified atrial fibrillation Plan 83 year old female with below past medical history underwent left total hip replacement 09/29/[address] Rm, postoperative course complicated by orthostatic hypotension, admitted to TCU with debility, here for rehabilitation,strengthening, prior to discharge home with . * Debility - PT/OT. * Pain - Tylenol 1000mg tid, Oxycodone 5-10mg q4 prn. * Bowel - senna/colace 2 tablets bid, Miralax 17gm daily. * Adult immunization - Administer pneumonia vaccine, covid vaccine, flu vaccine as appropriate. * DVT prophylaxis - Eliquis 2.5mg bid thru 10/13/2024, then Aspirin 81mg bid thru 11/11/2024. * Muscle spasm - Baclofen 10mg qhs. * Depression - Citalopram 20mg daily, stable chronic group home use, GDR not recommended. * Iron deficiency anemia - Ferrous sulfate 325mg daily. * COPD - Fluticasone Salmeterol 1 puff Q12, Incruse 1 puff daily. * Folate deficiency - Folic acid 1mg daily. * Hypothyroidism - Levothyroxine 75mcg daily. * Allergic rhinitis - Loratadine 10mg daily. * Hypertension - Metoprolol 12.5mg bid. * GERD - Pantoprazole 40mg qhs. Medications at Discharge Home Medications levocetirizine 5 mg tablet 5 mg PO DAILY ALLERGIES 04/06/20 levothyroxine 50 mcg tablet 75 mcg PO DAILY THYROID 06/21/22 fluticasone fur. 100 mcg-umeclid 62.5 mcg-vilant 25 mcg inhalat.powder (Trelegy Ellipta) 1 inh inhalation DAILY asthma 12/27/22 citalopram 20 mg tablet 20 mg PO DAILY antidepressant 03/09/24 omeprazole 40 mg capsule,delayed release 40 mg PO QHS acid reflux 03/09/24 acetaminophen 500 mg tablet 1,000 mg (2 x 500 mg) PO TID Pain #0 tabs 10/03/24 folic acid 1 mg tablet 1 mg PO BREAKFAST Supplement 14 days #14 tabs 10/03/24 metoprolol tartrate 25 mg tablet 12.5 mg (1/2 x 25 mg) PO BID BP #30 tabs 10/03/24 ascorbic acid (vitamin C) 500 mg tablet 500 mg PO BREAKFAST #0 tabs 10/21/24 aspirin 81 mg tablet,delayed release 81 mg PO BIDCM 11 days #0 tabs 10/21/24 baclofen 10 mg tablet 10 mg PO TID PRN PRN Muscle Spasm 30 days #90 tabs 10/21/24 ipratropium bromide 42 mcg (0.06 %) nasal spray 2 spray NASAL BID 30 days #15 mL10/21/24 oxycodone 5 mg tablet 5 - 10 mg (1 - 2 x 5 mg) PO Q6H PRN PRN Pain Score 5-10 7 days #56 tabs 10/21/24 polysaccharide iron complex 150 mg iron capsule (Ferrex) 150 mg PO DAILY 30 days#30 caps 10/21/24 sennosides 8.6 mg-docusate sodium 50 mg tablet (Stimulant Laxative Plus) 2 tab PO BID 30 days #120 tabs 10/21/24 Hospital Course Operations total hip replacement (Left.) Procedures None Summary of Care Provided Minutes Spent on Discharge: 35 Hospital Course: 83 year old female with below past medical history underwent left total hip replacement 09/29/[address] Rm, postoperative course complicated by orthostatic hypotension, admitted to TCU with debility, here for rehabilitation,strengthening, prior to discharge home with . Discharge home with family 10/30/2024, [facility] PT/OT/SW, FWW. FWW: Patient is unsafe with a cane and requires frequent rest breaks that can be resolved with use of a rollator for ambulation in the home and the community. Physical Exam Const alert General Appearance: cooperative HEENT normocephalic Eyes PERRL and EOMs intact bilaterally Neck supple, no JVD and no carotid bruits Resp normal respiratory effort, normal air movement and clear to auscultation bilaterally Cardio regular rate and regular rhythm GI normal to inspection, nondistended, normoactive bowel sounds, non-tender and non-distended Extremity normal capillary refill General Extremity: Negative for edema Skin no rashes or lesions noted General Skin Exam: no breakdown Psych affect normal Appearance: appropriate Weight / BMI Weight Weight: 90.401 kg Body Mass Index (BMI) 36.6 ABG / Lab / Microbiology Data 10/17/24 05:16 10/17/24 05:16 D/C Instructions Discharge Diet: No restrictions Discharge Activity: Return to Normal Activity, May Shower and Use Walker Weight Bearing Status: Weight bearing as tolerated Call your doctor if you observe: Fever of 101 or Higher, Inability to urinate, Inability to have a bowel movement, Shortness of breath, Dizziness, Fainting spells, Swelling in the ankles, Chest pain and Uncontrolled pain DC O2, CPAP, BIPAP Needs Home O2 Discharge instructions: No Additional Instructions: Discharge home with family 10/30/2024, [facility] PT/OT/SW, FWW. FWW: Patient is unsafe with a cane and requires frequent rest breaks that can be resolved with use of a rollator for ambulation in the home and the community. Please Follow Up With: Dr. Rm When: As scheduled. Meaningful Use Info Meaningful Use Meaningful Use Diagnoses (Choose all that apply): None applicable Ischemic Stroke Statin Dosing Therapy Reference: STATIN DOSE THERAPY REFERENCE: * Patients > 75 years receive moderate or high dose statin therapy. * Patients 75 years or YOUNGER should receive HIGH intensity statin dose unless contraindicated. You will be required to document reason for non-treatment if statin daily dose does not meet guidelines. HIGH DOSE STATIN THERAPY DAILY Atorvastatin > than or = to 40 mg Rosuvastatin > than or = to 20 mg Amlodipine + Atorvastatin > than or = to 2.5/40 mg Ezetimibe + Simvastatin 10/80 mg Simvastatin 80mg Discharge Plan Admission Admit Date/Time: 10/03/24 16:24 Primary Reason for Your Visit: Debility. Attending Provider: Rancho Matthew Chi Primary Care Provider: Rancho Matthew Chi Instructions Additional Instructions / Restrictions: Discharge home with family 10/30/2024, [facility] PT/OT/SW, FWW. FWW: Patient is unsafe with a cane and requires frequent rest breaks that can be resolved with use of a rollator for ambulation in the home and the community. Discharge Orders/Prescriptions Prescriptions: New polysaccharide iron complex [Ferrex 150] 150 mg iron Capsule 150 mg PO DAILY 30 Days Qty: 30 0RF sennosides-docusate sodium [Stimulant Laxative Plus] 8.6-50 mg Tablet 2 tab PO BID 30 Days Qty: 120 0RF aspirin 81 mg Tablet,Delayed Release (Dr/Ec) 81 mg PO BIDCM 11 Days Qty: 0 0RF ascorbic acid (vitamin C) 500 mg Tablet 500 mg PO BREAKFAST Qty: 0 0RF baclofen 10 mg Tablet 10 mg PO TID PRN PRN (Reason: Muscle Spasm) 30 Days Qty: 90 0RF ipratropium bromide 42 mcg (0.06 %) Bailey,Non-Aerosol 2 spray NASAL BID 30 Days Qty: 15 0RF oxycodone 5 mg Tablet 5 - 10 mg PO Q6H PRN PRN (Reason: Pain Score 5-10) 7 Days Qty: 56 0RF Continued levocetirizine 5 mg tablet 5 mg PO DAILY Trelegy Ellipta 100-62.5-25 mcg blister with device 1 inh inhalation DAILY levothyroxine 50 mcg tablet 75 mcg PO DAILY omeprazole 40 mg capsule,delayed release(DR/EC) 40 mg PO QHS citalopram 20 mg tablet 20 mg PO DAILY acetaminophen 500 mg Tablet 1,000 mg PO TID Qty: 0 0RF folic acid 1 mg Tablet 1 mg PO BREAKFAST 14 Days Qty: 14 0RF Rx Instructions: Take due to postoperative anemia and see primary care provider for chronic management. metoprolol tartrate 25 mg tablet 12.5 mg PO BID Qty: 30 0RF Discontinued acetaminophen 500 mg Tablet 1,000 mg PO Q8 Qty: 0 0RF aspirin 81 mg Tablet,Delayed Release (Dr/Ec) 81 mg PO DAILYCM Qty: 0 0RF tramadol 50 mg Tablet 50 mg PO Q6H PRN PRN (Reason: Pain Score 1-5 Or Pre Pt/Ot) 7 Days Qty: 28 0RF baclofen 10 mg tablet 10 mg PO QHS sennosides-docusate sodium [Stimulant Laxative Plus] 8.6-50 mg Tablet 2 tab PO BID PRN (Reason: constipation) Eliquis 5 mg Tablet 2.5 mg PO BID 10 Days Qty: 10 0RF Rx Instructions: Take until 2 weeks postoperatively due to previous DVT. ferrous sulfate [FeroSul] 325 mg (65 mg iron) Tablet 325 mg PO DAILY@1200 14 Days Qty: 14 0RF Rx Instructions: Take due to postoperative anemia and see primary care provider for chronic management. oxycodone 5 mg Tablet 5 - 10 mg PO Q4H PRN PRN (Reason: As needed for pain control) 7 Days Qty: 42 0RF Referrals / Follow Up: Alondra Rm MD [Med Staff - Active Staff] - (6 weeks post op appt. ) Rancho Matthew Chi, MD [Primary Care Provider] - Within 1 Week Disposition Disposition (needs filled in before D/C Order can be placed): Home Health Service 10/21/241941 <Electronically signed by Rancho Matthew MD> Cosigner Signature (if applicable): CC: Dr. Rancho Matthew MD~ Signed [facility] Work Phone: [phone]) 289-759903-11-2025 Discharge summary [facility] Medical Records Department [address] [place] [address] Discharge Summary 10/21/241931 MR#: [id number] Acct: [id number] Name: ALEJANDRA ALARCON Rep #:[id number] 5 : 1940 84 From: Rancho Matthew MD PCP: Dr. Rancho Matthew MD Status:ADM I N Location: [place] [address] Providers Date of Admission: 10/03/24 Primary Care Physician: Dr. Rancho Matthew MD Reason For Visit: TOTAL HIP ANTERIOR APPROACH Diagnosis Discharge Diagnosis (1) Debility: Status: Acute Code(s): R53.81 - Other malaise (2) Status post left hip replacement: Status: Acute Code(s): Z96.642 - Presence of left artificial hip joint (3) Essential (primary) hypertension: Status: Acute Code(s): I10 - Essential (primary) hypertension (4) Hypothyroidism: Status: Chronic Code(s): E03.9 - Hypothyroidism, unspecified (5) GERD (gastroesophageal reflux disease): Status: Acute Code(s): K21.9 - Gastro-esophageal reflux disease without esophagitis (6) COPD (chronic obstructive pulmonary disease): Status: Chronic Code(s): J44.9 - Chronic obstructive pulmonary disease, unspecified (7) Obstructive sleep apnea: Status: Acute Code(s): G47.33 - Obstructive sleep apnea (adult) (pediatric) (8) Depression: Status: Acute Code(s): F32.A - Depression, unspecified (9) Insomnia: Status: Acute Code(s): G47.00 - Insomnia, unspecified (10) Low back pain: Status: Acute Code(s): M54.50 - Low back pain, unspecified (11) Hx of deep venous thrombosis: Status: Acute Code(s): Z86.718 - Personal history of other venous thrombosis and embolism (12) Atrial fibrillation: Status: Acute Code(s): I48.91 - Unspecified atrial fibrillation Plan 83 year old female with below past medical history underwent left total hip replacement 09/29/[address] Rm, postoperative course complicated by orthostatic hypotension, admitted to TCU with debility, here for rehabilitation,strengthening, prior to discharge home with . * Debility - PT/OT. * Pain - Tylenol 1000mg tid, Oxycodone 5-10mg q4 prn. * Bowel - senna/colace 2 tablets bid, Miralax 17gm daily. * Adult immunization - Administer pneumonia vaccine, covid vaccine, flu vaccine as appropriate. * DVT prophylaxis - Eliquis 2.5mg bid thru 10/13/2024, then Aspirin 81mg bid thru 11/11/2024. * Muscle spasm - Baclofen 10mg qhs. * Depression - Citalopram 20mg daily, stable chronic group home use, GDR not recommended. * Iron deficiency anemia - Ferrous sulfate 325mg daily. * COPD - Fluticasone Salmeterol 1 puff Q12, Incruse 1 puff daily. * Folate deficiency - Folic acid 1mg daily. * Hypothyroidism - Levothyroxine 75mcg daily. * Allergic rhinitis - Loratadine 10mg daily. * Hypertension - Metoprolol 12.5mg bid. * GERD - Pantoprazole 40mg qhs. Medications at Discharge Home Medications levocetirizine 5 mg tablet 5 mg PO DAILY ALLERGIES 04/06/20 levothyroxine 50 mcg tablet 75 mcg PO DAILY THYROID 06/21/22 fluticasone fur. 100 mcg-umeclid 62.5 mcg-vilant 25 mcg inhalat.powder (Trelegy Ellipta) 1 inh inhalation DAILY asthma 12/27/22 citalopram 20 mg tablet 20 mg PO DAILY antidepressant 03/09/24 omeprazole 40 mg capsule,delayed release 40 mg PO QHS acid reflux 03/09/24 acetaminophen 500 mg tablet 1,000 mg (2 x 500 mg) PO TID Pain #0 tabs 10/03/24 folic acid 1 mg tablet 1 mg PO BREAKFAST Supplement 14 days #14 tabs 10/03/24 metoprolol tartrate 25 mg tablet 12.5 mg (1/2 x 25 mg) PO BID BP #30 tabs 10/03/24 ascorbic acid (vitamin C) 500 mg tablet 500 mg PO BREAKFAST #0 tabs 10/21/24 aspirin 81 mg tablet,delayed release 81 mg PO BIDCM 11 days #0 tabs 10/21/24 baclofen 10 mg tablet 10 mg PO TID PRN PRN Muscle Spasm 30 days #90 tabs 10/21/24 ipratropium bromide 42 mcg (0.06 %) nasal spray 2 spray NASAL BID 30 days #15 mL10/21/24 oxycodone 5 mg tablet 5 - 10 mg (1 - 2 x 5 mg) PO Q6H PRN PRN Pain Score 5-10 7 days #56 tabs 10/21/24 polysaccharide iron complex 150 mg iron capsule (Ferrex) 150 mg PO DAILY 30 days#30 caps 10/21/24 sennosides 8.6 mg-docusate sodium 50 mg tablet (Stimulant Laxative Plus) 2 tab PO BID 30 days #120 tabs 10/21/24 Hospital Course Operations total hip replacement (Left.) Procedures None Summary of Care Provided Minutes Spent on Discharge: 35 Hospital Course: 83 year old female with below past medical history underwent left total hip replacement 09/29/[address] Rm, postoperative course complicated by orthostatic hypotension, admitted to TCU with debility, here for rehabilitation,strengthening, prior to discharge home with . Discharge home with family 10/30/2024, [facility] PT/OT/SW, FWW. FWW: Patient is unsafe with a cane and requires frequent rest breaks that can be resolved with use of a rollator for ambulation in the home and the community. Physical Exam Const alert General Appearance: cooperative HEENT normocephalic Eyes PERRL and EOMs intact bilaterally Neck supple, no JVD and no carotid bruits Resp normal respiratory effort, normal air movement and clear to auscultation bilaterally Cardio regular rate and regular rhythm GI normal to inspection, nondistended, normoactive bowel sounds, non-tender and non-distended Extremity normal capillary refill General Extremity: Negative for edema Skin no rashes or lesions noted General Skin Exam: no breakdown Psych affect normal Appearance: appropriate Weight / BMI Weight Weight: 90.401 kg Body Mass Index (BMI) 36.6 ABG / Lab / Microbiology Data 10/17/24 05:16 10/17/24 05:16 D/C Instructions Discharge Diet: No restrictions Discharge Activity: Return to Normal Activity, May Shower and Use Walker Weight Bearing Status: Weight bearing as tolerated Call your doctor if you observe: Fever of 101 or Higher, Inability to urinate, Inability to have a bowel movement, Shortness of breath, Dizziness, Fainting spells, Swelling in the ankles, Chest pain and Uncontrolled pain DC O2, CPAP, BIPAP Needs Home O2 Discharge instructions: No Additional Instructions: Discharge home with family 10/30/2024, [facility] PT/OT/SW, FWW. FWW: Patient is unsafe with a cane and requires frequent rest breaks that can be resolved with use of a rollator for ambulation in the home and the community. Please Follow Up With: Dr. Rm When: As scheduled. Meaningful Use Info Meaningful Use Meaningful Use Diagnoses (Choose all that apply): None applicable Ischemic Stroke Statin Dosing Therapy Reference: STATIN DOSE THERAPY REFERENCE: * Patients > 75 years receive moderate or high dose statin therapy. * Patients 75 years or YOUNGER should receive HIGH intensity statin dose unless contraindicated. You will be required to document reason for non-treatment if statin daily dose does not meet guidelines. HIGH DOSE STATIN THERAPY DAILY Atorvastatin > than or = to 40 mg Rosuvastatin > than or = to 20 mg Amlodipine + Atorvastatin > than or = to 2.5/40 mg Ezetimibe + Simvastatin 10/80 mg Simvastatin 80mg Discharge Plan Admission Admit Date/Time: 10/03/24 16:24 Primary Reason for Your Visit: Debility. Attending Provider: Rancho Matthew Chi Primary Care Provider: Rancho Matthew Chi Instructions Additional Instructions / Restrictions: Discharge home with family 10/30/2024, [facility] PT/OT/SW, FWW. FWW: Patient is unsafe with a cane and requires frequent rest breaks that can be resolved with use of a rollator for ambulation in the home and the community. Discharge Orders/Prescriptions Prescriptions: New polysaccharide iron complex [Ferrex 150] 150 mg iron Capsule 150 mg PO DAILY 30 Days Qty: 30 0RF sennosides-docusate sodium [Stimulant Laxative Plus] 8.6-50 mg Tablet 2 tab PO BID 30 Days Qty: 120 0RF aspirin 81 mg Tablet,Delayed Release (Dr/Ec) 81 mg PO BIDCM 11 Days Qty: 0 0RF ascorbic acid (vitamin C) 500 mg Tablet 500 mg PO BREAKFAST Qty: 0 0RF baclofen 10 mg Tablet 10 mg PO TID PRN PRN (Reason: Muscle Spasm) 30 Days Qty: 90 0RF ipratropium bromide 42 mcg (0.06 %) Bailey,Non-Aerosol 2 spray NASAL BID 30 Days Qty: 15 0RF oxycodone 5 mg Tablet 5 - 10 mg PO Q6H PRN PRN (Reason: Pain Score 5-10) 7 Days Qty: 56 0RF Continued levocetirizine 5 mg tablet 5 mg PO DAILY Trelegy Ellipta 100-62.5-25 mcg blister with device 1 inh inhalation DAILY levothyroxine 50 mcg tablet 75 mcg PO DAILY omeprazole 40 mg capsule,delayed release(DR/EC) 40 mg PO QHS citalopram 20 mg tablet 20 mg PO DAILY acetaminophen 500 mg Tablet 1,000 mg PO TID Qty: 0 0RF folic acid 1 mg Tablet 1 mg PO BREAKFAST 14 Days Qty: 14 0RF Rx Instructions: Take due to postoperative anemia and see primary care provider for chronic management. metoprolol tartrate 25 mg tablet 12.5 mg PO BID Qty: 30 0RF Discontinued acetaminophen 500 mg Tablet 1,000 mg PO Q8 Qty: 0 0RF aspirin 81 mg Tablet,Delayed Release (Dr/Ec) 81 mg PO DAILYCM Qty: 0 0RF tramadol 50 mg Tablet 50 mg PO Q6H PRN PRN (Reason: Pain Score 1-5 Or Pre Pt/Ot) 7 Days Qty: 28 0RF baclofen 10 mg tablet 10 mg PO QHS sennosides-docusate sodium [Stimulant Laxative Plus] 8.6-50 mg Tablet 2 tab PO BID PRN (Reason: constipation) Eliquis 5 mg Tablet 2.5 mg PO BID 10 Days Qty: 10 0RF Rx Instructions: Take until 2 weeks postoperatively due to previous DVT. ferrous sulfate [FeroSul] 325 mg (65 mg iron) Tablet 325 mg PO DAILY@1200 14 Days Qty: 14 0RF Rx Instructions: Take due to postoperative anemia and see primary care provider for chronic management. oxycodone 5 mg Tablet 5 - 10 mg PO Q4H PRN PRN (Reason: As needed for pain control) 7 Days Qty: 42 0RF Referrals / Follow Up: Alondra Rm MD [Med Staff - Active Staff] - (6 weeks post op appt. ) Rancho Matthew Chi, MD [Primary Care Provider] - Within 1 Week Disposition Disposition (needs filled in before D/C Order can be placed): Home Health Service 10/21/241941 Cosigner Signature (if applicable): CC: Dr. Rancho Matthew MD~ Signed [facility]03-11-2025 [facility]03-07-2025 History and physical note Author Rancho Nikos [facility] Note Date/Time October 17, 2024 12:1 4pm [facility] Medical Records Department [address] [place] [address] History & Physical Exam 10/03/24 1809 MR#: [id number] Acct: [id number] Name: ALEJANDRA ALARCON Rep #:[id number] 1 : 1940 83 From: Rancho Matthew MD PCP: Dr. Rancho Matthew MD Status:ADM I N Location: [facility] [place] [address] HPI - General General Date of Admission: 10/03/24 Date of Service: 10/03/24 Chief Complaint: Here for rehabilitation. HPI Narrative ALEJANDRA ALARCON, is a 83 Female who presents with followin09/29/2024 [facility]mit [facility]. 09/29/2024 Dr. Rm performed minimally invasive direct anterior left total hipreplacement. 09/29/2024 Doing well, on oxygen post op. PT/OT. 09/30/2024 Comfortable, worked with PT yesterday. Pain controlled, patient planned TCU. Eliquis x 2 weeks, then aspirin 81mg bid x 2 weeks for dvt prophylaxis. Tylenol, Tramadol for pain. 09/30/2024 No acute events overnight. Using incentive spirometry. PT/OT, Hemoglobin stable. 10/01/2024 IV fluids Zofran IV for dizziness. Check orthostatic vital signs. PT/OT. 10/02/2024 Feeling better, dizziness/lightheadedness resolved. Blood pressure 92/47. Stop Metoprolol, give IV fluids x 1 liter bolus, then 125cc per hour for hypotension. Eliquis 2.5mg bid dvt prophylaxis. 10/03/2024 Admit to TCU with debility, here for rehabilitation, strengthening, prior to discharge home with . [facility] Medical History (Updated 10/03/24 @ 18:[address] Rancho Matthew MD) Wears hearing aid Wears dentures Post-menopausal Depression Bladder disease Uses wheelchair Walker as ambulation aid Easy bruising Back pain Restless legs Former smoker Leg cramps History of pain when walking History of edema History of echocardiogram History of stress test History of Holter monitoring Hypertension Cardiology follow-up encounter History of atrial fibrillation MRSA infection Hx of deep venous thrombosis Anxiety GERD (gastroesophageal reflux disease) CPAP (continuous positive airway pressure) dependence Migraines Hypothyroidism History of asthma History of COPD History of arthritis History of Right Foot Fracture Home Medications ?Medication ?Instructions ?Recorded ?Last Taken ?Type levocetirizine 5 mg tablet 5 mg PO DAILY ALLERGIES 10/03/24 09:10 History levothyroxine 50 mcg tablet 75 mcg PO DAILY THYROID 10/03/24 06:40 History fluticasone fur. 100 mcg-umeclid 1 inh inhalation ADOLPH Y asthma 12/27/22 09/28/24 08:00 History 62.5 mcg-vilant 25 mcg inhalat.powder (Trelegy Ellipta) baclofen 10 mg tablet 10 mg PO QHS muscle relaxer 03/09/24 10/02/24 22:55 History citalopram 20 mg tablet 20 mg PO DAILY antidepressan t 03/09/24 10/03/24 09:10 History omeprazole 40 mg capsule,delayed 40 mg PO QHS acid ref lux 03/09/24 10/02/24 22:55 History release acetaminophen 500 mg tablet 1,000 mg (2 x 500 mg) PO Q 8 Pain 03/25/24 09/28/24 19:00 Rx #0 tabs aspirin 81 mg tablet,delayed 81 mg PO DAILYCM Heart He alth #0 03/25/24 09/24/24 Rx release tabs Held on 10/03/24. Instructions: Resume on 10/14/24. Will resume aspirin 81 mg 2 times daily following 2 weeks of Xarelto postoperatively. tramadol 50 mg tablet 50 mg PO Q6H PRN PRN Pain Sc ore 03/25/24 09/28/24 19:00 Rx Held on 10/03/24. 1-5 Or Pre Pt/Ot 7 days #28 tabs Instructions: Do not take tramadol while taking oxycodone. sennosides 8.6 mg-docusate sodium 2 tab PO BID PRN con stipation 09/01/24 Unknown History 50 mg tablet (Stimulant Laxative Plus) acetaminophen 500 mg tablet 1,000 mg (2 x 500 mg) PO T ID Pain 10/03/24 10/03/24 06:40 Rx #0 tabs apixaban 5 mg tablet (Eliquis) 2.5 mg (1/2 x 5 mg) PO BID 10/03/24 10/03/24 09:10 Rx Prophylaxis for DVT 10 days #10 tabs ferrous sulfate 325 mg (65 mg 325 mg PO DAILY@1200 Sup plement 14 10/03/24 0 10/02/24 Rx iron) tablet (FeroSul) days #14 tabs folic acid 1 mg tablet 1 mg PO BREAKFAST Supplement 14 10/03/24 10/03/24 09:10 Rx days #14 tabs metoprolol tartrate 25 mg tablet 12.5 mg (1/2 x 25 mg) PO BID BP 10/03/24 Unknown Rx #30 tabs oxycodone 5 mg tablet 5 - 10 mg (1 - 2 x 5 mg) PO Q4H 10/03/24 Unknown Rx PRN PRN As needed for pain control 7 days #42 tabs Allergy/AdvReac Type Severity Reaction Status Date / Time Penicillins Allergy Severe facial Verified 09/29/24 05:54 swelling latex Allergy Intermediate itch and Verified 09/29/24 05:54 burn Family History Mother Hypertension CVA (cerebral vascular accident) Father Hypertension CVA (cerebral vascular accident) Surgical History Status post left hip replacement History of esophagogastroduodenoscopy (EGD) Hx of elbow surgery History of foot surgery Hx of tubal ligation S/P foot surgery, right History of appendectomy History of cholecystectomy Social History household members: spouse Smoking Status: Former smoker alcohol intake: never substance use type: does not use ROS Constitutional Constitutional: Reports weakness; Denies chills, fever(s) or weight gain ENT HEENT: Denies headache(s), nasal congestion or nasal discharge Cardiovascular Cardiovascular: Denies chest pain or palpitations Respiratory/Chest Respiratory/Chest: Denies cough, excessive phlegm production or shortness of breath with exertion Gastrointestinal Gastrointestinal: Denies abdominal pain, nausea or vomiting Genitourinary Genitourinary: Denies dysuria Musculoskeletal Musculoskeletal: Denies joint pain or joint swelling Integumentary Integumentary: Denies rash or wounds Neurologic Neurologic: Denies focal weakness, numbness or tingling Psychiatric Psychiatric: Denies anxiety, auditory hallucinations, depression, homicidal ideation or suicidal ideation Vital Signs Vital Signs Vital Signs: 10/03/24 16:33 10/03/24 16:33 Temperature 97.1 F L Temperature Source Temporal Pulse Rate 118 H 118 H Pulse Rhythm Regular Pulse Strength Normal (2+) Respiratory Rate 18 18 Respiratory Effort Normal Non-Labored Respiratory Depth Normal Respiratory Pattern Normal Blood Pressure 139/78 H Blood Pressure Mean 98 Blood Pressure Source Monitor Blood Pressure Position Semi-Fowlers Blood Pressure Location Right Arm Pulse Ox 95 95 Oxygen Delivery Method Room Air Room Air Weight Weight: 91.648 kg Body Mass Index (BMI) 36.9 Physical Exam Const alert General Appearance: cooperative HEENT normocephalic Eyes PERRL and EOMs intact bilaterally Neck supple, no JVD and no carotid bruits Resp normal respiratory effort, normal air movement and clear to auscultation bilaterally Cardio regular rate and regular rhythm GI normal to inspection, nondistended, normoactive bowel sounds, non-tender and non-distended Extremity normal capillary refill General Extremity: Negative for edema Skin no rashes or lesions noted General Skin Exam: no breakdown Psych affect normal Appearance: appropriate Assessment & Plan Assessment/Plan (1) Debility: (2) Status post left hip replacement: (3) Essential (primary) hypertension: (4) Hypothyroidism: (5) GERD (gastroesophageal reflux disease): (6) COPD (chronic obstructive pulmonary disease): (7) Obstructive sleep apnea: (8) Depression: (9) Insomnia: (10) Low back pain: (11) Hx of deep venous thrombosis: (12) Atrial fibrillation: PLAN: Plan 83 year old female with below past medical history underwent left total hip replacement 09/29/[address] Rm, postoperative course complicated by orthostatic hypotension, admitted to TCU with debility, here for rehabilitation,strengthening, prior to discharge home with . * Debility - PT/OT. * Pain - Tylenol 1000mg tid, Oxycodone 5-10mg q4 prn. * Bowel - senna/colace 2 tablets bid, Miralax 17gm daily. * Adult immunization - Administer pneumonia vaccine, covid vaccine, flu vaccine as appropriate. * DVT prophylaxis - Eliquis 2.5mg bid thru 10/13/2024, then Aspirin 81mg bid thru 11/11/2024. * Muscle spasm - Baclofen 10mg qhs. * Depression - Citalopram 20mg daily, stable chronic group home use, GDR not recommended. * Iron deficiency anemia - Ferrous sulfate 325mg daily. * COPD - Fluticasone Salmeterol 1 puff Q12, Incruse 1 puff daily. * Folate deficiency - Folic acid 1mg daily. * Hypothyroidism - Levothyroxine 75mcg daily. * Allergic rhinitis - Loratadine 10mg daily. * Hypertension - Metoprolol 12.5mg bid. * GERD - Pantoprazole 40mg qhs. 10/03/24 1826 <Electronically signed by Rancho Matthew MD> Cosigner Signature (if applicable): CC: Dr. Rancho Matthew MD~ Signed ADDENDUM by Dr. Rancho Matthew MD on 10/06/24 at 1508 Addendum UTI - urine culture Klebsiella Pneumoniae, Pseudomonas Aeruginosa, treat with Cipro 250mg bid x 7 days. 10/06/24 1508<Electronically signed by Rancho Matthew MD> Cosigner Signature (if applicable): cc: Dr. Rancho Matthew MD ~* Signed ADDENDUM by Dr. Rancho Matthew MD on 10/08/24 at 1705 Addendum Insomnia - Melatonin 3mg qhs. 10/08/24 1704<Electronically signed by Rancho Matthew MD> Cosigner Signature (if applicable): cc: Dr. Rancho Matthew MD ~* Signed ADDENDUM by Dr. Rancho Matthew MD on 10/13/24 at 1723 Addendum Muscle spasm left leg - Baclofen 10mg tid prn. 10/13/24 1723<Electronically signed by Rancho Matthew MD> Cosigner Signature (if applicable): cc: Dr. Rancho Matthew MD ~* Signed ADDENDUM by Dr. Rancho Matthew MD on 10/17/24 at 1314 Addendum Allergic rhinitis - Failed Loratadine 10mg daily, add Ipratropium 0.6% nasal spray, 2 sprays nasal bid. 10/17/24 1314<Electronically signed by Rancho Matthew MD> Cosigner Signature (if applicable): cc: Dr. Rancho Matthew MD ~* Signed [facility] Work Phone: 1(174) 484-956803-07-2025 History and physical note [facility] Medical Records Department [address] [place] [address] History & Physical Exam 10/03/24 1809 MR#: [id number] Acct: [id number] Name: ALEJANDRA ALARCON Rep #:[id number] 1 : 1940 83 From: Rancho Matthew MD PCP: Dr. Rancho Matthew MD Status:ADM I N Location: [address] - General General Date of Admission: 10/03/24 Date of Service: 10/03/24 Chief Complaint: Here for rehabilitation. HPI Narrative ALEJANDRA ALARCON, is a 83 Female who presents with followin09/29/2024 Admit [facility]. 09/29/2024 Dr. Rm performed minimally invasive direct anterior left total hipreplacement. 09/29/2024 Doing well, on oxygen post op. PT/OT. 09/30/2024 Comfortable, worked with PT yesterday. Pain controlled, patient planned TCU. Eliquis x 2 weeks, then aspirin 81mg bid x 2 weeks for dvt prophylaxis. Tylenol, Tramadol for pain. 09/30/2024 No acute events overnight. Using incentive spirometry. PT/OT, Hemoglobin stable. 10/01/2024 IV fluids Zofran IV for dizziness. Check orthostatic vital signs. PT/OT. 10/02/2024 Feeling better, dizziness/lightheadedness resolved. Blood pressure 92/47. Stop Metoprolol, give IV fluids x 1 liter bolus, then 125cc per hour for hypotension. Eliquis 2.5mg bid dvt prophylaxis. 10/03/2024 Admit to TCU with debility, here for rehabilitation, strengthening, prior to discharge home with . [facility] Medical History (Updated 10/03/24 @ 18:[address] Rancho Matthew MD) Wears hearing aid Wears dentures Post-menopausal Depression Bladder disease Uses wheelchair Walker as ambulation aid Easy bruising Back pain Restless legs Former smoker Leg cramps History of pain when walking History of edema History of echocardiogram History of stress test History of Holter monitoring Hypertension Cardiology follow-up encounter History of atrial fibrillation MRSA infection Hx of deep venous thrombosis Anxiety GERD (gastroesophageal reflux disease) CPAP (continuous positive airway pressure) dependence Migraines Hypothyroidism History of asthma History of COPD History of arthritis History of Right Foot Fracture Home Medications ?Medication ?Instructions ?Recorded ?Last Taken ?Type levocetirizine 5 mg tablet 5 mg PO DAILY ALLERGIES 10/03/24 09:10 History levothyroxine 50 mcg tablet 75 mcg PO DAILY THYROID 10/03/24 06:40 History fluticasone fur. 100 mcg-umeclid 1 inh inhalation ADOLPH Y asthma 12/27/22 09/28/24 08:00 History 62.5 mcg-vilant 25 mcg inhalat.powder (Trelegy Ellipta) baclofen 10 mg tablet 10 mg PO QHS muscle relaxer 03/09/24 10/02/24 22:55 History citalopram 20 mg tablet 20 mg PO DAILY antidepressan t 03/09/24 10/03/24 09:10 History omeprazole 40 mg capsule,delayed 40 mg PO QHS acid ref lux 03/09/24 10/02/24 22:55 History release acetaminophen 500 mg tablet 1,000 mg (2 x 500 mg) PO Q 8 Pain 03/25/24 09/28/24 19:00 Rx #0 tabs aspirin 81 mg tablet,delayed 81 mg PO DAILYCM Heart He alth #0 03/25/24 09/24/24 Rx release tabs Held on 10/03/24. Instructions: Resume on 10/14/24. Will resume aspirin 81 mg 2 times daily following 2 weeks of Xarelto postoperatively. tramadol 50 mg tablet 50 mg PO Q6H PRN PRN Pain Sc ore 03/25/24 09/28/24 19:00 Rx Held on 10/03/24. 1-5 Or Pre Pt/Ot 7 days #28 tabs Instructions: Do not take tramadol while taking oxycodone. sennosides 8.6 mg-docusate sodium 2 tab PO BID PRN con stipation 09/01/24 Unknown History 50 mg tablet (Stimulant Laxative Plus) acetaminophen 500 mg tablet 1,000 mg (2 x 500 mg) PO T ID Pain 10/03/24 10/03/24 06:40 Rx #0 tabs apixaban 5 mg tablet (Eliquis) 2.5 mg (1/2 x 5 mg) PO BID 10/03/24 10/03/24 09:10 Rx Prophylaxis for DVT 10 days #10 tabs ferrous sulfate 325 mg (65 mg 325 mg PO DAILY@1200 Sup plement 14 10/03/24 0 10/02/24 Rx iron) tablet (FeroSul) days #14 tabs folic acid 1 mg tablet 1 mg PO BREAKFAST Supplement 14 10/03/24 10/03/24 09:10 Rx days #14 tabs metoprolol tartrate 25 mg tablet 12.5 mg (1/2 x 25 mg) PO BID BP 10/03/24 Unknown Rx #30 tabs oxycodone 5 mg tablet 5 - 10 mg (1 - 2 x 5 mg) PO Q4H 10/03/24 Unknown Rx PRN PRN As needed for pain control 7 days #42 tabs Allergy/AdvReac Type Severity Reaction Status Date / Time Penicillins Allergy Severe facial Verified 09/29/24 05:54 swelling latex Allergy Intermediate itch and Verified 09/29/24 05:54 burn Family History Mother Hypertension CVA (cerebral vascular accident) Father Hypertension CVA (cerebral vascular accident) Surgical History Status post left hip replacement History of esophagogastroduodenoscopy (EGD) Hx of elbow surgery History of foot surgery Hx of tubal ligation S/P foot surgery, right History of appendectomy History of cholecystectomy Social History household members: spouse Smoking Status: Former smoker alcohol intake: never substance use type: does not use ROS Constitutional Constitutional: Reports weakness; Denies chills, fever(s) or weight gain ENT HEENT: Denies headache(s), nasal congestion or nasal discharge Cardiovascular Cardiovascular: Denies chest pain or palpitations Respiratory/Chest Respiratory/Chest: Denies cough, excessive phlegm production or shortness of breath with exertion Gastrointestinal Gastrointestinal: Denies abdominal pain, nausea or vomiting Genitourinary Genitourinary: Denies dysuria Musculoskeletal Musculoskeletal: Denies joint pain or joint swelling Integumentary Integumentary: Denies rash or wounds Neurologic Neurologic: Denies focal weakness, numbness or tingling Psychiatric Psychiatric: Denies anxiety, auditory hallucinations, depression, homicidal ideation or suicidal ideation Vital Signs Vital Signs Vital Signs: 10/03/24 16:33 10/03/24 16:33 Temperature 97.1 F L Temperature Source Temporal Pulse Rate 118 H 118 H Pulse Rhythm Regular Pulse Strength Normal (2+) Respiratory Rate 18 18 Respiratory Effort Normal Non-Labored Respiratory Depth Normal Respiratory Pattern Normal Blood Pressure 139/78 H Blood Pressure Mean 98 Blood Pressure Source Monitor Blood Pressure Position Semi-Fowlers Blood Pressure Location Right Arm Pulse Ox 95 95 Oxygen Delivery Method Room Air Room Air Weight Weight: 91.648 kg Body Mass Index (BMI) 36.9 Physical Exam Const alert General Appearance: cooperative HEENT normocephalic Eyes PERRL and EOMs intact bilaterally Neck supple, no JVD and no carotid bruits Resp normal respiratory effort, normal air movement and clear to auscultation bilaterally Cardio regular rate and regular rhythm GI normal to inspection, nondistended, normoactive bowel sounds, non-tender and non-distended Extremity normal capillary refill General Extremity: Negative for edema Skin no rashes or lesions noted General Skin Exam: no breakdown Psych affect normal Appearance: appropriate Assessment & Plan Assessment/Plan (1) Debility: (2) Status post left hip replacement: (3) Essential (primary) hypertension: (4) Hypothyroidism: (5) GERD (gastroesophageal reflux disease): (6) COPD (chronic obstructive pulmonary disease): (7) Obstructive sleep apnea: (8) Depression: (9) Insomnia: (10) Low back pain: (11) Hx of deep venous thrombosis: (12) Atrial fibrillation: PLAN: Plan 83 year old female with below past medical history underwent left total hip replacement 09/29/[address] Rm, postoperative course complicated by orthostatic hypotension, admitted to TCU with debility, here for rehabilitation,strengthening, prior to discharge home with . * Debility - PT/OT. * Pain - Tylenol 1000mg tid, Oxycodone 5-10mg q4 prn. * Bowel - senna/colace 2 tablets bid, Miralax 17gm daily. * Adult immunization - Administer pneumonia vaccine, covid vaccine, flu vaccine as appropriate. * DVT prophylaxis - Eliquis 2.5mg bid thru 10/13/2024, then Aspirin 81mg bid thru 11/11/2024. * Muscle spasm - Baclofen 10mg qhs. * Depression - Citalopram 20mg daily, stable chronic meterman use, GDR not recommended. * Iron deficiency anemia - Ferrous sulfate 325mg daily. * COPD - Fluticasone Salmeterol 1 puff Q12, Incruse 1 puff daily. * Folate deficiency - Folic acid 1mg daily. * Hypothyroidism - Levothyroxine 75mcg daily. * Allergic rhinitis - Loratadine 10mg daily. * Hypertension - Metoprolol 12.5mg bid. * GERD - Pantoprazole 40mg qhs. 10/03/24 1826 Cosigner Signature (if applicable): CC: Dr. Rancho Matthew MD~ Signed ADDENDUM by Dr. Rancho Matthew MD on 10/06/24 at 1508 Addendum UTI - urine culture Klebsiella Pneumoniae, Pseudomonas Aeruginosa, treat with Cipro 250mg bid x 7 days. 10/06/24 1508 Cosigner Signature (if applicable): cc: Dr. Rancho Matthew MD ~* Signed ADDENDUM by Dr. Rancho Matthew MD on 10/08/24 at 1705 Addendum Insomnia - Melatonin 3mg qhs. 10/08/24 1704 Cosigner Signature (if applicable): cc: Dr. Rancho Matthew MD ~* Signed ADDENDUM by Dr. Rancho Matthew MD on 10/13/24 at 1723 Addendum Muscle spasm left leg - Baclofen 10mg tid prn. 10/13/24 1723 Cosigner Signature (if applicable): cc: Dr. Rancho Matthew MD ~* Signed ADDENDUM by Dr. Rancho Matthew MD on 10/17/24 at 1314 Addendum Allergic rhinitis - Failed Loratadine 10mg daily, add Ipratropium 0.6% nasal spray, 2 sprays nasal bid. 10/17/24 1314 Cosigner Signature (if applicable): cc: Dr. Rancho Matthew MD ~* Signed [facility]02-24-2025 Progress note Author Milagros Castillo [facility] Note Date/Time October 06, 2024 12:06pm [facility] Medical Records Department [address] [place] [address] Progress Note - Pharmacy 10/06/24 1029 MR#: [id number] Acct: [id number] Name: ALEJANDRA ALARCON Rep #:[id number] : 1940 83 From: Milagros Castillo PCP: Dr. Rancho Matthew MD Status:ADM I N Location: TCU [facility]- Documented by User: Milagros Castillo 10/06/24 10:47 TCU RX Drug Regimen Review Subjective/Objective Subjective/Objective Subjective: TCU Admission. 83 YOF underwent left total hip replacement 09/29/2024with Dr. Rm, postoperative course complicated by orthostatic hypotension. Admitted to TCU with debility for strengthening and rehabilitation. Objective: Allergies Penicillins Allergy (Severe, Verified 09/29/24 05:54) facial swelling latex Allergy (Intermediate, Verified 09/29/24 05:54) itch and burn Current Medications Generic Name Dose Route Start Last Admin Trade Name Freq PRN Reason Stop Dose Admin Acetaminophen 1,000 mg 10/03/24 22:00 10/06/24 05:35 Acetaminophen 500 Mg Tablet PO 1,000 mg TID WHIT Administration Apixaban 2.5 mg 10/03/24 22:00 10/06/24 08:21 Apixaban 2.5 Mg Tablet (h) PO 10/13/24 22:01 2.5 mg BID WHIT Administration Ascorbic Acid 500 mg 10/06/24 10:00 10/06/24 08:34 Ascorbic Acid 500 Mg Tablet PO 500 mg BREAKFAST WHIT Administration Aspirin 81 mg 10/14/24 08:00 Aspirin E.C. 81 Mg Tablet PO 11/11/24 08:01 BIDCM WHIT Baclofen 10 mg 10/03/24 22:00 10/05/24 20:57 Baclofen 10 Mg Tablet PO 10 mg QHS WHIT Administration Ciprofloxacin HCl 250 mg 10/04/24 15:17 10/06/24 08:21 Ciprofloxacin 250 Mg Tablet PO 10/10/24 22:01 250 mg BID WHIT Administration Citalopram Hydrobromide 20 mg 10/04/24 10:00 10/06/24 08:21 Citalopram 20 Mg Tablet PO 20 mg DAILY WHIT Administration Folic Acid 1 mg 10/04/24 08:00 10/06/24 08:20 Folic Acid 1 Mg Tablet PO 1 mg BREAKFAST WHIT Administration Levothyroxine Sodium 75 mcg 10/04/24 06:00 10/06/24 05:31 Levothyroxine 75 Mcg Tablet PO 75 mcg DAILY@0600 WHIT Administration Loratadine 10 mg 10/04/24 10:00 10/06/24 08:21 Loratadine 10 Mg Tablet PO 10 mg DAILY WHIT Administration Metoprolol Tartrate 12.5 mg 10/03/24 22:00 10/06/24 08:30 Metoprolol Tartrate 25 Mg Tablet PO 12.5 mg BID WHIT Administration Protocol Oxycodone HCl 5 - 10 mg 10/03/24 16:48 10/06/24 05:36 Oxycodone 5 Mg Tablet PO 10 mg Q4H PRN PRN Administration Pain Score 5-10 Pantoprazole Sodium 40 mg 10/03/24 22:00 10/05/24 20:57 Pantoprazole Sodium 40 Mg Tablet PO 40 mg QHS WHIT Administration Polyethylene Glycol 17 gm 10/04/24 10:00 10/06/24 08:28 Polyethylene Glycol 3350 17 Gm Packet PO 17 gm DAILY WHIT Administration Polysaccharide Iron Complex 150 mg 10/06/24 10:00 10/06/24 08:28 Iron Polysaccharide Complex 150 Mg Capsule PO 150 mg DAILY WHIT Administration Fluticasone/Salmeterol 1 puff 10/03/24 22:00 10/06/24 08:22 Fluticasone/Salmeterol 232-14 Inhaler INHALATION 1 puff Q12 WHIT Administration Senna/Docusate Sodium 2 tablet 10/03/24 22:00 10/06/24 08:22 Senna/Docusate Sodium 1 Tablet PO 2 tablet BID WHIT Administration Sodium Chloride 10 - 40 ml 10/03/24 21:34 10/04/24 09:28 0.9% Saline Lock 10 Ml Syringe IV 10 ml UD PRN Administration SALINE FLUSH Tuberculin PPD 0.1 ml 10/11/24 10:00 Tuberculin,Purif.Prot.Deriv. 50 Tu/Ml Vial ID 10/11/24 10:01 X1 ONE Umeclidinium [place] 1 puff 10/04/24 10:00 10/06/24 08:22 Umeclidinium [place] Inhaler INHALATION 1 puff DAILY WHIT Administration Problem List Atrial fibrillation (Acute) Low back pain (Acute) Insomnia (Acute) Depression (Acute) Obstructive sleep apnea (Acute) GERD (gastroesophageal reflux disease) (Acute) Status post left hip replacement (Acute) COPD (chronic obstructive pulmonary disease) (Chronic) Essential (primary) hypertension (Acute) Debility (Acute) Hypothyroidism (Chronic) Hx of deep venous thrombosis (Acute) Vital Signs Temp Pulse Resp BP Pulse Ox O2 Del Method 97.7 F L 104 H 18 123/71 H 92 Room Air 10/05/24 16:00 10/06/24 08:30 10/05/24 09:10 10/06/24 08:30 10/05/24 09:10 10/05/24 09:10 Oxygen Delivery Method Room Air Weight: 91.6 kg Body Mass Index (BMI) 36.9 Sodium 139 mmol/L (136-145) 10/04/24 05:10 Potassium 4.2 mmol/L (3.5-5.1) 10/04/24 05:10 Chloride 107 mmol/L (98-107) 10/04/24 05:10 Carbon Dioxide 28.0 mmol/L (21.0-32.0) 10/04/24 05:10 Anion Gap 4 (5-15) L 10/04/24 05:10 BUN 18 mg/dL (7-18) 10/04/24 05:10 Creatinine 0.79 mg/dL (0.55-1.02) 10/04/24 05:10 Est GFR (MDRD) Af Amer 90 mL/min (>60) 10/04/24 05:10 Est GFR (MDRD) Non-Af 74 mL/min (>60) 10/04/24 05:10 BUN/Creatinine Ratio 22.8 RATIO (10-20) H 10/04/24 05:10 Glucose 98 mg/dL (74-106) 10/04/24 05:10 Assessment/Plan: 1. Pain: acetaminophen 1000mg PO TID and oxycodone 5-10mg PO Q4H PRN pain 5-10. Resident has had 8 doses of oxycodone for pain scores of 7-9 in the hip/left leg. Please continue to monitor for increased pain, PRN usage, constipation, respiratory depression and falls (Aly). 2. Bowel: senna/docusate 2T PO BID and Miralax 17gm PO daily. Please continue tomonitor for constipation/diarrhea. Last documented bowel movement was 10/05. 3. DVT prophylaxis: apixaban 2.5mg PO BID thru 10/13/24, then aspirin 81mg PO BID thru 11/11/24. Please continue to monitor for S/S of bleeding/DVT, hemoglobin (last 9g/dL). 4. Iron deficiency anemia: Ferrex 150mg PO daily and ascorbic acid 500mg PO breakfast. Please continue to monitor hemoglobin, dark stools, constipation. H&Hordered for 10/08. 5. Muscle spasm: baclofen 10mg PO QHS. Please continue to monitor for hypotonia,dizziness and drowsiness. 6. COPD: fluticasone/salmeterol 232/14mcg inhalation 1 puff Q12 and umeclidinium1 puff daily. Please continue to monitor HR (last 104), S/S of thrush, SOB. Please rinse mouth with water and spit following fluticasone/salmeterol administration to prevent thrush. 7. Hypothyroidism: levothyroxine 75mcg PO daily. Please continue to monitor TSH (last 09/04/24) and S/S of hypo/hyperthyroidism. 8. Hypertension: metoprolol tartrate 12.5mg PO BID. Please continue to monitor HR, BP (last 123/71). 9. GERD: pantoprazole 40mg PO QHS. Please continue to monitor for S/S of GERD and diarrhea (BEERs). 10. Allergic rhinitis: loratadine 10mg PO daily. Please continue to monitor for S/S of allergies and renal function. 11. Folate deficiency: folic acid 1mg PO daily. Please continue to monitor. 12. Klebsiella/pseudomonas UTI: ciprofloxacin 250mg PO BID thru 10/10/24. Please continue to monitor for S/S of infection, renal function, diarrhea, joint pain. Assessment/Plan for indications treated with psychotropic medications: 1. Depression: citalopram 20mg PO daily. Please see physician note regarding GDR. Please continue to monitor for suicidal ideation (black box warning), sodium (last 139mmol/L), and falls/fractures (BEERs). Medical chart and medication regimen reviewed. The following medication irregularities or issues were identified: None Date Date of Note: 10/06/24 Documented by User: Dr. Rancho Matthew MD 10/06/24 13:06 TCU RX Drug Regimen Review Provider Comments Provider responsibility Provider Comments to Recommendations by Pharmacy Agree 10/06/24 1047 <Electronically signed by Milagros Castillo> Milagros Castillo Cosigner Signature (if applicable): 10/06/24 1306 <Electronically signed by Rancho Matthew MD> CC: ~ Signed [facility] Work Phone: 1(116) 209-405102-24-2025 Progress note [facility] Medical Records Department [address] [place] [address] Progress Note - Pharmacy 10/06/24 1029 MR#: [id number] Acct: [id number] Name: ALEJANDRA ALARCON Rep #:[id number] : 1940 83 From: Milagros Castillo PCP: Dr. Rancho Matthew MD Status:ADM I N Location: [facility]- Documented by User: Milagros Castillo 10/06/24 10:47 TCU RX Drug Regimen Review Subjective/Objective Subjective/Objective Subjective: TCU Admission. 83 YOF underwent left total hip replacement 09/29/2024with Dr. Rm, postoperative course complicated by orthostatic hypotension. Admitted to TCU with debility for strengthening and rehabilitation. Objective: Allergies Penicillins Allergy (Severe, Verified 09/29/24 05:54) facial swelling latex Allergy (Intermediate, Verified 09/29/24 05:54) itch and burn Current Medications Generic Name Dose Route Start Last Admin Trade Name Oscarq PRN Reason Stop Dose Admin Acetaminophen 1,000 mg 10/03/24 22:00 10/06/24 05:35 Acetaminophen 500 Mg Tablet PO 1,000 mg TID WHIT Administration Apixaban 2.5 mg 10/03/24 22:00 10/06/24 08:21 Apixaban 2.5 Mg Tablet (Wch) PO 10/13/24 22:01 2.5 mg BID WHIT Administration Ascorbic Acid 500 mg 10/06/24 10:00 10/06/24 08:34 Ascorbic Acid 500 Mg Tablet PO 500 mg BREAKFAST WHIT Administration Aspirin 81 mg 10/14/24 08:00 Aspirin E.C. 81 Mg Tablet PO 11/11/24 08:01 BIDCM WHIT Baclofen 10 mg 10/03/24 22:00 10/05/24 20:57 Baclofen 10 Mg Tablet PO 10 mg QHS WHIT Administration Ciprofloxacin HCl 250 mg 10/04/24 15:17 10/06/24 08:21 Ciprofloxacin 250 Mg Tablet PO 10/10/24 22:01 250 mg BID WHIT Administration Citalopram Hydrobromide 20 mg 10/04/24 10:00 10/06/24 08:21 Citalopram 20 Mg Tablet PO 20 mg DAILY WHIT Administration Folic Acid 1 mg 10/04/24 08:00 10/06/24 08:20 Folic Acid 1 Mg Tablet PO 1 mg BREAKFAST WHIT Administration Levothyroxine Sodium 75 mcg 10/04/24 06:00 10/06/24 05:31 Levothyroxine 75 Mcg Tablet PO 75 mcg DAILY@0600 WHIT Administration Loratadine 10 mg 10/04/24 10:00 10/06/24 08:21 Loratadine 10 Mg Tablet PO 10 mg DAILY WHIT Administration Metoprolol Tartrate 12.5 mg 10/03/24 22:00 10/06/24 08:30 Metoprolol Tartrate 25 Mg Tablet PO 12.5 mg BID WHIT Administration Protocol Oxycodone HCl 5 - 10 mg 10/03/24 16:48 10/06/24 05:36 Oxycodone 5 Mg Tablet PO 10 mg Q4H PRN PRN Administration Pain Score 5-10 Pantoprazole Sodium 40 mg 10/03/24 22:00 10/05/24 20:57 Pantoprazole Sodium 40 Mg Tablet PO 40 mg QHS WHIT Administration Polyethylene Glycol 17 gm 10/04/24 10:00 10/06/24 08:28 Polyethylene Glycol 3350 17 Gm Packet PO 17 gm DAILY WHIT Administration Polysaccharide Iron Complex 150 mg 10/06/24 10:00 10/06/24 08:28 Iron Polysaccharide Complex 150 Mg Capsule PO 150 mg DAILY WHIT Administration Fluticasone/Salmeterol 1 puff 10/03/24 22:00 10/06/24 08:22 Fluticasone/Salmeterol 232-14 Inhaler INHALATION 1 puff Q12 WHIT Administration Senna/Docusate Sodium 2 tablet 10/03/24 22:00 10/06/24 08:22 Senna/Docusate Sodium 1 Tablet PO 2 tablet BID WHIT Administration Sodium Chloride 10 - 40 ml 10/03/24 21:34 10/04/24 09:28 0.9% Saline Lock 10 Ml Syringe IV 10 ml UD PRN Administration SALINE FLUSH Tuberculin PPD 0.1 ml 10/11/24 10:00 Tuberculin,Purif.Prot.Deriv. 50 Tu/Ml Vial ID 10/11/24 10:01 X1 ONE Umeclidinium [place] 1 puff 10/04/24 10:00 10/06/24 08:22 Umeclidinium [place] Inhaler INHALATION 1 puff DAILY WHIT Administration Problem List Atrial fibrillation (Acute) Low back pain (Acute) Insomnia (Acute) Depression (Acute) Obstructive sleep apnea (Acute) GERD (gastroesophageal reflux disease) (Acute) Status post left hip replacement (Acute) COPD (chronic obstructive pulmonary disease) (Chronic) Essential (primary) hypertension (Acute) Debility (Acute) Hypothyroidism (Chronic) Hx of deep venous thrombosis (Acute) Vital Signs Temp Pulse Resp BP Pulse Ox O2 Del Method 97.7 F L 104 H 18 123/71 H 92 Room Air 10/05/24 16:00 10/06/24 08:30 10/05/24 09:10 10/06/24 08:30 10/05/24 09:10 10/05/24 09:10 Oxygen Delivery Method Room Air Weight: 91.6 kg Body Mass Index (BMI) 36.9 Sodium 139 mmol/L (136-145) 10/04/24 05:10 Potassium 4.2 mmol/L (3.5-5.1) 10/04/24 05:10 Chloride 107 mmol/L (98-107) 10/04/24 05:10 Carbon Dioxide 28.0 mmol/L (21.0-32.0) 10/04/24 05:10 Anion Gap 4 (5-15) L 10/04/24 05:10 BUN 18 mg/dL (7-18) 10/04/24 05:10 Creatinine 0.79 mg/dL (0.55-1.02) 10/04/24 05:10 Est GFR (MDRD) Af Amer 90 mL/min (>60) 10/04/24 05:10 Est GFR (MDRD) Non-Af 74 mL/min (>60) 10/04/24 05:10 BUN/Creatinine Ratio 22.8 RATIO (10-20) H 10/04/24 05:10 Glucose 98 mg/dL (74-106) 10/04/24 05:10 Assessment/Plan: 1. Pain: acetaminophen 1000mg PO TID and oxycodone 5-10mg PO Q4H PRN pain 5-10. Resident has had 8 doses of oxycodone for pain scores of 7-9 in the hip/left leg. Please continue to monitor for increased pain, PRN usage, constipation, respiratory depression and falls (BEERs). 2. Bowel: senna/docusate 2T PO BID and Miralax 17gm PO daily. Please continue tomonitor for constipation/diarrhea. Last documented bowel movement was 10/05. 3. DVT prophylaxis: apixaban 2.5mg PO BID thru 10/13/24, then aspirin 81mg PO BID thru 11/11/24. Pleasecontinue to monitor for S/S of bleeding/DVT, hemoglobin (last 9g/dL). 4. Iron deficiency anemia: Ferrex 150mg PO daily and ascorbic acid 500mg PO breakfast. Please continue to monitor hemoglobin, dark stools, constipation. H&Hordered for 10/08. 5. Muscle spasm: baclofen 10mg PO QHS. Please continue to monitor for hypotonia,dizziness and drowsiness. 6. COPD: fluticasone/salmeterol 232/14mcg inhalation 1 puff Q12 and umeclidinium1 puff daily. Please continue to monitor HR (last 104), S/S of thrush, SOB. Please rinse mouth with water and spit following fluticasone/salmeterol administration to prevent thrush. 7. Hypothyroidism: levothyroxine 75mcg PO daily. Please continue to monitor TSH (last 09/04/24) and S/S of hypo/hyperthyroidism. 8. Hypertension: metoprolol tartrate 12.5mg PO BID. Please continue to monitor HR, BP (last 123/71). 9. GERD: pantoprazole 40mg PO QHS. Please continue to monitor for S/S of GERD and diarrhea (BEERs). 10. Allergic rhinitis: loratadine 10mg PO daily. Please continue to monitor for S/S of allergies and renal function. 11. Folate deficiency: folic acid 1mg PO daily. Please continue to monitor. 12. Klebsiella/pseudomonas UTI: ciprofloxacin 250mg PO BID thru 10/10/24. Please continue to monitorfor S/S of infection, renal function, diarrhea, joint pain. Assessment/Plan for indications treated with psychotropic medications: 1. Depression: citalopram 20mg PO daily. Please see physician note regarding GDR. Please continue to monitor for suicidal ideation (black box warning), sodium (last 139mmol/L), and falls/fractures (BEERs). Medical chart and medication regimen reviewed. The following medication irregularities or issues were identified: None Date Date of Note: 10/06/24 Documented by User: Dr. Rancho Matthew MD 10/06/24 13:06 TCU RX Drug Regimen Review Provider Comments Provider responsibility Provider Comments to Recommendations by Pharmacy Agree 10/06/24 1047 Milagros Metcalf Signature (if applicable): 10/06/24 1306 CC: ~ Signed [facility]02-21-2025 [facility]02-21-2025 [facility]02-20-2025 Evaluation note* Diagnosis Onset Date Resolution Status Admit Date Dizziness acute October 02, 2024 3:35pm Status post left hip replacement acute October 02, 025 3:35pm Debility acute October 03, 2024 4:24pm Depression acute October 03, 2024 4:24pm Essential (primary) hypertension acute October 03, 2 025 4:24pm GERD (gastroesophageal reflu x disease) acute October 03, 025 4:24pm Hx of deep venous thrombosis acute October 03, 2024 4:24pm Insomnia acute October 03, 2024 4:24pm Obstructive sleep apnea acute F 2024 4:24pm Status post left hip replacement acute October 03, 025 4:24pm COPD (chronic obstructive pulmonary disease) chronic September 4:24pm Hypothyroidism chronic September 142024 4:24pm Atrial fibrillation resolved 2024 4:24pm Low back pain resolved October 032024 4:24pm [facility] Work Phone: 1(566) 294-975302-10-2025 [facility]01-08-2025 Evaluation note* Diagnosis Onset Date Resolution Status Admit Date Essential (primary) hypertension acute August 20 1:50pm Heart palpitations acute 2024 1:50pm Dizziness acute October 02, 2024 3:35pm Status post left hip replacement acute October 02, 2 025 3:35pm Atrial fibrillation acute 2024 4:24pm Debility acute October 03, 2024 4:24pm Depression acute October 03, 2024 4:24pm Essential (primary) hypertension acute October 03, 2 025 4:24pm GERD (gastroesophageal reflu x disease) acute October 03, 2 025 4:24pm Hx of deep venous thrombosis acute October 03, 2024 4:24pm Insomnia acute October 03, 2024 4:24pm Low back pain acute October 032024 4:24pm Obstructive sleep apnea acute F 2024 4:24pm Status post left hip replacement acute October 03, 2 025 4:24pm COPD (chronic obstructive pulmonary disease) chronic September 4:24pm Hypothyroidism chronic September 142024 4:24pm [facility] Work Phone: [phone]) 948-452901-08-2025 Evaluation note* Diagnosis Onset Date Resolution Status Admit Date Essential (primary) hypertension acute August 20 1:50pm Heart palpitations acute 2024 1:50pm Dizziness acute October 02, 2024 3:35pm Status post left hip replacement acute October 02, 025 3:35pm Debility acute October 03, 2024 4:24pm Depression acute October 03, 2024 4:24pm Essential (primary) hypertension acute October 03, 025 4:24pm GERD (gastroesophageal reflu x disease) acute October 03 025 4:24pm Hx of deep venous thrombosis acute October 03, 2024 4:24pm Insomnia acute October 03, 2024 4:24pm Obstructive sleep apnea acute F 2024 4:24pm Status post left hip replacement acute October 03, 025 4:24pm COPD (chronic obstructive pulmonary disease) chronic September 4:24pm Hypothyroidism chronic September 142024 4:24pm Atrial fibrillation resolved 2024 4:24pm Low back pain resolved October 032024 4:24pm [facility] Work Phone: 1(756) 956-421008-13-2024 [facility]07-30-2024 [facility]07-30-2024 [facility] 10-02-2020 NoteHNO ID: [id number] Author: Susie Garcia (Pa) Service: ? Author Type: Physician Civil Attorney Type: Progress Notes Filed: 10/02/2020 1:07 PM Note Text: This note was created using [employer]. Alex Alarcon is a 79 year old female. HPI [...] for ER care. Patient and daughter agreeable. Susie Garcia PA-C Medical Decision Making: Problems: Low: Acute, uncomplicated illness or injury Data: Unique source(s) for external note(s) reviewed: 2 Unique test result(s) reviewed: 1 Risk: Moderate: Drug management Medical Decision Making Level: [facility]Patient Outreach ([facility]) ALEJANDRA ALARCON ([id number]) 1940 F Date Time Provider Department 09/23/20 HAMM[facility] NAGY During your visit today, we recorded the following information about you: Allergies As of Date: 09/23/2020 Noted Allergy Reaction HYDROCODONE-ACETAMINOPHEN 11/10/2018 8 - GI Upset PENICILLINS 11/10/2018 4 - Hives Date Reviewed: 10/05/2019 Reviewed by: Steffanie Chow MA - Fully Assessed Order(s):SARS-COVID VACCINE 1ST DOSE APPT [[id number]] Order #: [id number] FUTURE Prescriptions as of 09/23/2020 Sig: LEVOTHYROXINE 25 MCG TABLET ALBUTEROL INHALATION Inhale as instructed. Pt has * NAPROXEN ORAL Take by mouth. Problem List As Of Date: 09/23/2020 (None) Letter Text Encounter Status:Closed by NALLELY ARMAS on 09/27/20[facility] Evaluation note* Diagnosis Onset Date Resolution Status Back pain chronic DDD (degenerative disc disease), lumbar chronic Segmental and somatic dysfunction of lumbar region chronic Segmental and somatic dysfunction of pelvic region chronic Back pain chronic DDD (degenerative disc disease), lumbar chronic Segmental and somatic dysfunction of lumbar region chronic Segmental and somatic dysfunction of pelvic region chronic Back pain chronic DDD (degenerative disc disease), lumbar chronic Segmental and somatic dysfunction of lumbar region chronic Segmental and somatic dysfunction of pelvic region chronic [facility] Work Phone: Evaluation note* Diagnosis Onset Date Resolution Status Back pain chronic DDD (degenerative disc disease), lumbar chronic Segmental and somatic dysfunction of lumbar region chronic Segmental and somatic dysfunction of pelvic region chronic Heart palpitations acute [facility] Work Phone: Evaluation note* Diagnosis Onset Date Resolution Status Heart palpitations acute [facility] Work Phone: Evaluation note* Diagnosis Onset Date Resolution Status Benign essential HTN acute Heart palpitations acute [facility] Work Phone: Evaluation note* Diagnosis Onset Date Resolution Status Benign essential HTN acute Heart palpitations acute Back pain acute Segmental and somatic dysfunction of lumbar region acute Segmental and somatic dysfunction of pelvic region acute DDD (degenerative disc disease), lumbar chronic Segmental and somatic dysfunction of lumbar region acute Segmental and somatic dysfunction of pelvic region acute DDD (degenerative disc disease), lumbar chronic [facility] Work Phone: Evaluation note* Diagnosis Onset Date Resolution Status Back pain acute Segmental and somatic dysfunction of lumbar region acute Segmental and somatic dysfunction of pelvic region acute DDD (degenerative disc disease), lumbar chronic Segmental and somatic dysfunction of lumbar region acute Segmental and somatic dysfunction of pelvic region acute DDD (degenerative disc disease), lumbar chronic Segmental and somatic dysfunction of lumbar region acute Segmental and somatic dysfunction of pelvic region acute DDD (degenerative disc disease), lumbar chronic [facility] Work Phone: Evaluation note* Diagnosis Onset Date Resolution Status Maxillary sinusitis acute [facility] Work Phone: Evaluation noteNo assessment information available [facility] Work Phone: Hospital Discharge instructions Additional Instructions Discharge home with family 10/30/2024, [facility] PT/OT/SW, FWW. FWW: Patient is unsafe with a cane and requires frequent rest breaks that can be resolved with use of a rollator for ambulation in the home and the community.[facility] Work Phone: Summary Purpose Family History Relationship Condition Age at Onset Recorded Date/T fam Unknown Family History?Hyper tension, Stroke Unknown July 20, 2020 7:32pm Family History?Hyper tension, Stroke Unknown July 20, 2020 7:32pm Relationship Condition Age at Onset Recorded Date/T fam Unknown Family History?Hyper tension, Stroke Unknown July 20, 2020 6:32pm Family History?Hyper tension, Stroke Unknown July 20, 2020 6:32pm Relationship Condition Age at Onset Recorded Date/T fam mother Hypertension Unknown Cerebrovascular accident (CVA) Unknown father Hypertension Unknown Advance Directives Advance Directive Response Recorded Date/ Time Living Will Yes April 26, 2021 4:09pm Power of Reference Investigator Yes April 4:09pm Advance Directive Response Recorded Date/ Time Living Will Yes April 26, 2021 3:09pm Power of Reference Investigator Yes April 3:09pm Advance Directive Response Recorded Date/ Time Living Will Yes April 26, 2021 4:09pm Do you have a Healthcare Pow er of Reference Investigator? Yes April 26, 2021 4:09pm Living Will Yes October 06 5:13pm Do you have a Healthcare Pow er of Reference Investigator? Yes October 06, 2024 5:13pm Name of Medical Power of Reference Investigator don magallon, daughter October 06, 2024 5:13pm Living Will Yes September 29 025 1:38pm Do you have a Healthcare Pow er of Reference Investigator? Yes September 29, 2024 1:38pm Name of Medical Power of Reference Investigator ZANDER MCMAHON September 29, 2024 1:38pm Advance Directive Response Recorded Date/ Time Living Will Yes April 26, 2021 4:09pm Do you have a Healthcare Pow er of Reference Investigator? Yes April 26, 2021 4:09pm Living Will Yes October 06 025 5:13pm Do you have a Healthcare Pow er of Reference Investigator? Yes October 06, 2024 5:13pm Name of Medical Power of Reference Investigator don magallon, daughter October 06, 2024 5:13pm Living Will Yes September 29 025 1:38pm Do you have a Healthcare Pow er of Reference Investigator? Yes September 29, 2024 1:38pm Name of Medical Power of Reference Investigator ZANDER MCMAHON September 29, 2024 1:38pm Living Will No November 23, 2024 3:34pm Do you have a Healthcare Pow er of Reference Investigator? No November 23, 2024 3:34pm Advance Directive Response Recorded Date/ Time Living Will Yes October 06 025 5:13pm Do you have a Healthcare Pow er of Reference Investigator? Yes October 06, 2024 5:13pm Name of Medical Power of Reference Investigator don magallon, daughter October 06, 2024 5:13pm Living Will Yes September 29 1:38pm Do you have a Healthcare Pow er of Reference Investigator? Yes September 29, 2024 1:38pm Name of Medical Power of Reference Investigator ZANDER MCMAHON September 29, 2024 1:38pm Living Will No November 23, 2024 3:34pm Do you have a Healthcare Pow er of Reference Investigator? No November 23, 2024 3:34pm Chief Complaint and Reason for Visit Chief Complaint Adjustment back pain ABSCESS LOWER LEFT LEG edema LBP Reason for Visit Back pain DDD (degenerative disc disease), lumbar Segmental and somatic dysfunction of lumbar region Segmental and somatic dysfunction of pelvic region Back pain DDD (degenerative disc disease), lumbar Segmental and somatic dysfunction of lumbar region Segmental and somatic dysfunction of pelvic region Back pain DDD (degenerative disc disease), lumbar Segmental and somatic dysfunction of lumbar region Segmental and somatic dysfunction of pelvic region Chief Complaint ABSCESS LOWER LEFT L EG edema LBP CHEST TIGHTNESS/FAST HR (NIKOS) ARRTHTHMIA Reason for Visit Back pain DDD (degenerative disc disease), lumbar Segmental and somatic dysfunction of lumbar region Segmental and somatic dysfunction of pelvic region Heart palpitations Chief Complaint edema LBP CHEST TIGHTNESS/FAST HR (NIKOS) ARRTHTHMIA Reason for Visit Back pain DDD (degenerative disc disease), lumbar Segmental and somatic dysfunction of lumbar region Segmental and somatic dysfunction of pelvic region Heart palpitations Chief Complaint CHEST TIGHTNESS/FAST HR (NIKOS) ARRTHTHMIA SCREENING Reason for Visit Heart palpitations Chief Complaint SCREENING 6 M FU TACHYCARDIA Reason for Visit Benign essential HTN Heart palpitations Chief Complaint 6 M FU TACHYCARDIA REEVAL BACK PAIN Adjustment Reason for Visit Benign essential HTN Heart palpitations Back pain Segmental and somatic dysfunction of lumbar region Segmental and somatic dysfunction of pelvic region DDD (degenerative disc disease), lumbar Segmental and somatic dysfunction of lumbar region Segmental and somatic dysfunction of pelvic region DDD (degenerative disc disease), lumbar Chief Complaint TACHYCARDIA REEVAL BACK PAIN Adjustment Back pain Reason for Visit Back pain Segmental and somatic dysfunction of lumbar region Segmental and somatic dysfunction of pelvic region DDD (degenerative disc disease), lumbar Segmental and somatic dysfunction of lumbar region Segmental and somatic dysfunction of pelvic region DDD (degenerative disc disease), lumbar Segmental and somatic dysfunction of lumbar region Segmental and somatic dysfunction of pelvic region DDD (degenerative disc disease), lumbar Chief Complaint 6 M FU Reason for Visit Benign essential HTN Heart palpitations Chief Complaint SORE THROAT BACK AND LEG PAIN RX HERE Reason for Visit Maxillary sinusitis Chief Complaint SORE THROAT BACK AND LEG PAIN RX HERE LEFT SHOULDER PAIN Reason for Visit Maxillary sinusitis Chief Complaint SORE THROAT BACK AND LEG PAIN RX HERE LEFT SHOULDER PAIN Chills (without fever) Reason for Visit Maxillary sinusitis Chief Complaint LEFT SHOULDER PAIN Chills (without fever) Chief Complaint LEFT SHOULDER PAIN Chills (without fever) 1 Y FU Reason for Visit Benign essential HTN Heart palpitations Chief Complaint 1 Y FU Reason for Visit Benign essential HTN Heart palpitations Chief Complaint Admit Date 1 Y FU August 20, 2024 1: 50pm Total Hip Anterior Approach September 1:54pm Total Hip Anterior Approach September 9:21am Total Hip Anterior Approach September 1:48pm Total Hip Anterior Approach September 12:46pm Total Hip Anterior Approach September 3:35pm Total Hip Anterior Approach September 11:20am TOTAL HIP ANTERIOR APPROACH September 4:24pm Reason for Visit Admit Date Essential (primary) hypertension August 20, 2024 1:50pm Heart palpitations August 20, 2024 1: 50pm Dizziness October 02, 2024 3:35pm Status post left hip replacement 2024 3:35pm Atrial fibrillation October 03, 2024 4:24pm Debility October 03, 2024 4:24pm Depression October 03, 2024 4:24pm Essential (primary) hypertension 2024 4:24pm GERD (gastroesophageal reflux disease) F ebruary 2024 4:24pm Hx of deep venous thrombosis October 032024 4:24pm Insomnia October 03, 2024 4:24pm Low back pain October 03, 2024 4:24pm Obstructive sleep apnea October 03, 2 025 4:24pm Status post left hip replacement 2024 4:24pm COPD (chronic obstructive pulmonary dise ase) October 03, 2024 4:24pm Hypothyroidism October 03, 2024 4:24pm Chief Complaint Admit Date 1 Y FU August 20, 2024 1: 50pm Total Hip Anterior Approach September 1:54pm Total Hip Anterior Approach September 9:21am Total Hip Anterior Approach September 1:48pm Total Hip Anterior Approach September 12:46pm Total Hip Anterior Approach September 3:35pm Total Hip Anterior Approach September 11:20am TOTAL HIP ANTERIOR APPROACH September 4:24pm HYPOTENSION November 23, 2024 3:3 4pm Reason for Visit Admit Date Essential (primary) hypertension August 20, 2024 1:50pm Heart palpitations August 20, 2024 1: 50pm Dizziness October 02, 2024 3:35pm Status post left hip replacement 2024 3:35pm Debility October 03, 2024 4:24pm Depression October 03, 2024 4:24pm Essential (primary) hypertension 2024 4:24pm GERD (gastroesophageal reflux disease) F ebruary 2024 4:24pm Hx of deep venous thrombosis October 032024 4:24pm Insomnia October 03, 2024 4:24pm Obstructive sleep apnea October 03, 025 4:24pm Status post left hip replacement 2024 4:24pm COPD (chronic obstructive pulmonary dise ase) October 03, 2024 4:24pm Hypothyroidism October 03, 2024 4:24pm Atrial fibrillation October 03, 2024 4:24pm Low back pain October 03, 2024 4:24pm Chief Complaint Admit Date Total Hip Anterior Approach September 1:54pm Total Hip Anterior Approach September 9:21am Total Hip Anterior Approach September 1:48pm Total Hip Anterior Approach September 12:46pm Total Hip Anterior Approach September 3:35pm Total Hip Anterior Approach September 11:20am TOTAL HIP ANTERIOR APPROACH September 4:24pm HYPOTENSION November 23, 2024 3:3 4pm Reason for Visit Admit Date Dizziness October 02, 2024 3:35pm Status post left hip replacement 2024 3:35pm Debility October 03, 2024 4:24pm Depression October 03, 2024 4:24pm Essential (primary) hypertension 2024 4:24pm GERD (gastroesophageal reflux disease) F ebruary 2024 4:24pm Hx of deep venous thrombosis October 032024 4:24pm Insomnia October 03, 2024 4:24pm Obstructive sleep apnea October 03 2 025 4:24pm Status post left hip replacement ua y 2024 4:24pm COPD (chronic obstructive pulmonary dise ase) October 03, 2024 4:24pm Hypothyroidism October 03, 2024 4:24pm Atrial fibrillation October 03, 2024 4:24pm Low back pain October 03, 2024 4:24pm Additional Source Comments INFORMATION SOURCE (unrecogn ized section and content) DATE CREATED AUTHOR 09/21/2021 [facility] DATE CREATED AUTHOR AUTHOR'S ORGANIZ ATION 11/30/2024 [facility] Care Teams (unrecognized sec tion and content) Team Status: Active Member Role Status Dates Dr. Rancho Matthew MD Family Provider Active Dr. Rancho Matthew MD Primary Care Provider Active Team Status: Inactive Member Role Status Dates Dr. Rancho Matthew MD Primary Care Provider, Referring Provider Active Dr. Sheree Haddad DC Attending Provider Active Team Status: Inactive Member Role Status Dates Dr. Rancho Matthew MD Primary Care Provider, Attending Provider Active Team Status: Inactive Member Role Status Dates Dr. Rancho Matthew MD Primary Care Provider Active Kanchan Ugarte AUTO TIRE RECAPPER, AUTO TIRE RECAPPER-C Attending Provider Active Team Status: Inactive Member Role Status Dates Dr. Rancho Matthew MD Primary Care Provider, Referring Provider Active Kanchan Ugarte AUTO TIRE RECAPPER, AUTO TIRE RECAPPER-C Attending Provider Active Team Status: Inactive Member Role Status Dates Dr. Rancho Matthew MD Primary Care Provi romina, Attending Provider, Referring Provider Active Team Status: Inactive Member Role Status Dates Dr. Rancho Matthew MD Primary Care Provider, Referring Provider Active Yahir Singh AUTO TIRE RECAPPER, AUTO TIRE RECAPPER-C Attending Provider Active Team Status: Active Member Role Status Dates Dr. Rancho Matthew MD Primary Care Provider Active Dr. Regino Forrester MD Attending Provider, Referring Pr ovider Active Team Status: Inactive Member Role Status Dates Dr. Rancho Matthew MD Primary Care Provider Active Dr. Regino Forrester MD Attending Provider, Referring Pr ovider Active Team Status: Inactive Member Role Status Dates Dr. Rancho Matthew MD Primary Care Provider, Referring Provider Active Dr. Cody Peng MD Attending Provider Active Team Status: Active Member Role Status Dates Dr. Rancho Matthew MD Primary Care Provider Active Team Status: Inactive Member Role Status Dates Dr. Rancho Matthew MD Primary Care Provider Active Start: August 20, 2024 End: August 20, 2024 Dr. Rancho Matthew MD Referring Provider Active Start: August 20, 2024 End: August 20, 2024 Rosaura Faye PA, PA Attending Provider Active Start: August 20, 2024 End: August 20, 2024 Team Status: Inactive Member Role Status Dates Dr. Rancho Matthew MD Primary Care Provider Active Start: September 04, 2024 End: September 04, 2024 Dr. Rancho Matthew MD Attending Provider Active Start: September 04, 2024 End: September 04, 2024 Team Status: Active Member Role Status Dates Dr. Rancho Matthew MD Primary Care Provider Active Start: September 29, 2024 Dr. Alondra Rm MD Admit Provider Active Sta rt: September 29, 2024 Dr. Alondra Rm MD Referring Provider Active Start: September 29, 2024 Dr. Alondra Rm MD Other Provider Active Sta rt: September 29, 2024 Dr. Pk Erickson MD Attending Provider Active Start: September 29, 2024 Dr. Pk Erickson MD Other Provider Active Start: September 29, 2024 Team Status: Active Member Role Status Dates Dr. Rancho Matthew MD Primary Care Provider Active Start: September 30, 2024 Dr. Alondra Rm MD Admit Provider Active Sta rt: September 30, 2024 Dr. Alondra Rm MD Other Provider Active Sta rt: September 30, 2024 Dr. Pk Erickson MD Attending Provider Active Start: September 30, 2024 Dr. Pk Erickson MD Other Provider Active Start: September 30, 2024 Team Status: Active Member Role Status Dates Dr. Rancho Matthew MD Primary Care Provider Active Start: October 01, 2024 Dr. Alondra Rm MD Admit Provider Active Sta rt: October 01, 2024 Dr. Alondra Rm MD Other Provider Active Sta rt: October 01, 2024 Dr. Pk Erickson MD Other Provider Active Start: October 01, 2024 Dr. Reina Salgado MD Attending Provider Active Start: October 01, 2024 Team Status: Active Member Role Status Dates Dr. Rancho Matthew MD Primary Care Provider Active Start: October 02, 2024 Dr. Alondra Rm MD Admit Provider Active Sta rt: October 02, 2024 Dr. Alondra Rm MD Other Provider Active Sta rt: October 02, 2024 Dr. Pk Erickson MD Other Provider Active Start: October 02, 2024 Dr. Reina Salgado MD Attending Provider Active Start: October 02, 2024 Team Status: Inactive Member Role Status Dates Dr. Rancho Matthew MD Primary Care Provider Active Start: October 02, 2024 End: October 03, 2024 Dr. Alondra Rm MD Admit Provider Active Sta rt: October 02, 2024 End: October 03, 2024 Dr. Alondra Rm MD Attending Provider Active Start: October 02, 2024 End: October 03, 2024 Dr. Alondra Rm MD Referring Provider Active Start: October 02, 2024 End: October 03, 2024 Dr. Pk Erickson MD Other Provider Active Start: October 02, 2024 End: October 03, 2024 Team Status: Active Member Role Status Dates Dr. Rancho Matthew MD Primary Care Provider Active Start: October 03, 2024 Dr. Alondra Rm MD Admit Provider Active Sta rt: October 03, 2024 Dr. Alondra Rm MD Other Provider Active Sta rt: October 03, 2024 Dr. Pk Erickson MD Other Provider Active Start: October 03, 2024 Dr. Reina Salgado MD Attending Provider Active Start: October 03, 2024 Team Status: Inactive Member Role Status Dates Dr. Rancho Matthew MD Primary Care Provider Active Start: October 03, 2024 End: October 30, 2024 Dr. Rancho Matthew MD Admit Provider Active Star t: October 03, 2024 End: October 30, 2024 Dr. Rancho Matthew MD Attending Provider Active Start: October 03, 2024 End: October 30, 2024 Dr. Rancho Matthew MD Referring Provider Active Start: October 03, 2024 End: October 30, 2024 Team Status: Inactive Member Role Status Dates Dr. Rancho Matthew MD Primary Care Provider Active Start: November 23, 2024 End: November 23, 2024 Dr. Stephon Michelle DO Emergency Provider Active Start: November 23, 2024 End: November 23, 2024 Team Status: Inactive Member Role Status Dates Dr. Rancho Matthew MD Primary Care Provider Active Start: November 23, 2024 End: November 23, 2024 Dr. Stephon Michelle DO Attending Provider Active Start: November 23, 2024 End: November 23, 2024 Dr. Stephon Michelle DO Emergency Provider Active Start: November 23, 2024 End: November 23, 2024 FOR RECORDS PERTAINING TO PATIENTS WHO ARE [...] BE BASED ON THE PRIMARY CLINICAL RECORDS. [employer] [facility]. provides no warranty or guarantee of the accuracy or completeness of information in this document.
== END | disposition home or self-care (01) ==
LOC: POLAB3 09:03
PROVIDERS: PCP Family Medicine Geriatric Medicine; Visit Provider Family Medicine Geriatric Medicine
DX: I10 Essential (primary) hypertension (principal); E55.9 Vitamin D deficiency, unspecified; E78.5 Hyperlipidemia, unspecified
CPT/HCPCS: 36415; 80053; 80061; 82306; 84443; 85025

== ENCOUNTER → 2025-04-20 | Outpatient (CLI) | payer MEDICARE, SELFPAY ==
[2025-04-20 15:09] LABS: Hematocrit 36.8 % (37-47); Hemoglobin 12.0 g/dL (12.0-15.0); Mean Corp Hgb Conc 32.6 g/dL (32-36); Mean Corpuscular Volume 92.0 fL (81-99); Mean Platelet Vol. 10.3 fl (6.2-12.0); Platelet Count 248 K/mm3 (150-450); RBC Distribution Width CV 13.5 % (11.6-14.6); RBC Distribution Width SD 46.3 fl (35.1-43.9); Red Blood Count 4.00 M/mm3 (4.2-5.4); White Blood Count 7.7 K/mm3 (4.4-11.0)
[2025-04-20 15:40] LABS: Ferritin 43 ng/mL (22-378); Iron 53 ug/dL (50-170); Iron Binding Capacity,Total 317 ug/dL (250-450); Iron Binding Capacity,Unsat 264 ug/dL (228-428)
== END | disposition home or self-care (01) ==
LOC: MTLAB 11:20
PROVIDERS: PCP Family Medicine Geriatric Medicine; Referring Provider Internal Medicine Pulmonary Disease; Visit Provider Internal Medicine Pulmonary Disease
DX: J44.9 Chronic obstructive pulmonary disease, unspecified (principal)
CPT/HCPCS: 36415; 82728; 83540; 83550; 85027